=== PATIENT | female | born 1970 | race Caucasian/White ===

== ENCOUNTER 2023-03-22 17:28 | Emergency (ER) | payer OTHER ==
--- OUTSIDE RECORDS SUMMARY | 2023-03-22 17:31 | XMS REPORT | Clinical Summary ---
:1970 Author Organization [facility] Address [address] [place] [address] Care Team Providers Name Role Phone Kev Whitt MD Unavailable Phyllis Modi RD Unavailable Unavailable Yimi Matos MD Unavailable Yimi Matos MD Primary Care Provider Darby Barrera CCC-PLATFORM POWER TECHNICIAN Unavailable Toby العراقي CCC-PLATFORM POWER TECHNICIAN Unavailable Unavailable Maryam Lucio MD Unavailable Elpidio Regalado DO Unavailable Allergies Active Allergy Reactions Criticality Noted Date Comments Adhesive Rash Low 09/10/2016 Amoxicillin Rash High 02/24/2019 Other reaction( s): GI Intolerance Amoxicillin-Pot Other (See High 09/04/2012 Other reacti on(s): Clavulanate Comments) Unknown - See comments Coughing up blo od Coughing up blo od Banana Other (See 09/10/2016 Other reaction( s): Comments) GI Intolerance Abdominal pain Abdominal pain Abdominal pain Budesonide-Formoterol Shortness Of Breath High 09/10/2016 Cephalexin Swelling 12/08/2021 Cetirizine Other (See 09/10/2016 Other reaction( s): Comments) GI Intolerance Metallic taste Metallic taste Metallic taste Dexamethasone Swelling 01/13/2022 Throat swellin g Dexlansoprazole Diarrhea 09/10/2016 Egg Swelling 10/31/2020 Ethanol (Ethyl Alcohol) 01/26/2022 Fluticasone Shortness Of Breath High 09/10/2016 Fluticasone Anxiety Low 09/10/2016 Furoate-Vilanterol Iodinated Contrast Media Anaphylaxis High 01/24/2022 Latex Rash High 09/10/2016 Levofloxacin 09/04/2012 Other reaction( s): Altered Mental Status, Unknown - See comments psychosis psychosis psychosis Lidocaine Other (See High 04/04/2017 Burning, irrita tion Comments), Burning, irrita tion Shortness Of Burning, irrita tion Breath, Swelling Macrolide Antibiotics GI Intolerance, 09/10/2016 Nausea And Vomiting Meropenem High 01/20/2022 Unable to move out of bed Metformin (Bulk) Other (See High 09/10/2018 Other react ion(s): Comments) Altered Mental Status Severe aggressi on, delusions. See nurse note from 09/10/18 urgent care visit. Severe aggressi on, delusions. See nurse note from 09/10/18 urgent care visit. Severe aggressi on, delusions. See nurse note from 09/10/18 urgent care visit. Midazolam Anxiety, Other (See Low 04/11/2017 Other re action(s): Comments) Altered Mental Status Depression Depression Depression Acetylcysteine Other (See 07/14/2022 Aggravated; t hroat Comments) feels swollen Rosuvastatin Other (See 10/13/2016 Vague intoleran ce Comments) Shellfish Containing Anaphylaxis, High 10/30/2021 Products Swelling Silicone Itching, Other (See 10/30/2021 Comments), Swelling Sodium Lauryl Sulfate Shortness Of Breath High 10/30/2021 Other reaction(s): shortness of br eath Sulfa (Sulfonamide High 09/04/2012 Other aroldo ction(s): Antibiotics) GI Intolerance, Unknown - See comments psychosis Thimerosal Other (See 04/11/2017 Other reaction( s): Comments) Unknown - See comments Tiotropium Whitwell Shortness Of Breath High 09/10/2016 Triamterene-Hydrochlorot Swelling 09/10/2016 hiazid Zileuton Anxiety Low 09/10/2016 Medications Medication Sig Dispensed Refills Start End Status Date Date ProAir HFA 90 INHALE 2 PUFFS 0 A ctive mcg/actuation BY MOUTH EVERY 4 2 inhaler HOURS NEEDED FOR SHORTNESS OF BREATH albuterol Inhale 3 mL (2.5 0 Act alice (PROVENTIL,VENTOLIN mg) by ) 2.5 mg/3 mL nebulization (0.083%) nebulizer every 6 (six) solution hours. doxycycline Take 1 capsule 28 capsule 0 Ac tive (Vibramycin) 100 MG (100 mg) by 3 capsuleIndications: mouth twice Squamous cell daily. carcinoma of esophagus acetylcysteine Take 200 mg by 0 Discontinued (MUCOMYST) 200 mouth twice 2 022 (Re order) mg/mL (20%) daily. nebulizer solution diphenhydrAMINE Take 25 mg by 0 Discontinued (BENADRYL) 25 mg mouth every 8 023 capsule (eight) hours as needed for allergies. predniSONE Please take 20 12 tablet 0 Disc ontinued (DELTASONE) 10 mg mg daily x 3 2 023 tabletIndications: days, then 10 mg Obstruction of daily for 3 trachea days, then 10 mg every other day for 3 doses acetylcysteine Take 1 mL (200 30 mL 0 Discontinued (MUCOMYST) 200 mg) by mouth 2 022 (R eorder) mg/mL (20%) twice daily. nebulizer solutionIndications : Carcinoma of esophagus acetylcysteine Take 3 mL (600 180 mL 11 Discontinued (MUCOMYST) 200 mg) by mouth 2 022 mg/mL (20%) twice daily. nebulizer solutionIndications : Obstruction of trachea acetylcysteine Take 1 mL (200 60 mL Discontinued (MUCOMYST) 200 mg) by mouth 2 023 mg/mL (20%) twice daily. nebulizer solutionIndications : Carcinoma of esophagus predniSONE Take 1 tablet 3 tablet 0 Disco ntinued (DELTASONE) 50 mg (50 mg) by mouth 2 023 tabletIndications: 3 (three) times Squamous cell a day. Take 1 carcinoma of tab 13, 7, and 1 esophagus hour prior to receiving iodine contrast. Take 50 mg Benadryl within one hour of scan. diazePAM (VALIUM) 2 Take 1 tablet (2 0 14/07 Discontinued mg tablet mg) by mouth as 023 needed. doxycycline Take 1 capsule 28 capsule 0 Ex pired (Vibramycin) 100 MG (100 mg) by 3 023 capsuleIndications: mouth twice Squamous cell daily for 14 carcinoma of days. esophagus Active Problems Patient Care Coordination Note Formatting of this note might be differe nt from the original. 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 Overview: Added automatically from request for tereso tolbert [id number] Squamous cell carcinoma of esophagus 01/13/2022 Cancer Staging: Clinical stage from 01/25: Stage CYNTHIA (cT4b, cN3, cM0, GX, L: Upper) - Signed by Horace Day MD PhD on 01/29/2022 Acute on chronic hypoxemic respiratory failure Stridor Agitation Electrolyte and fluid disorders not elsewhere classified Encounters Date Type Department Care Team Description 03/11/2023 Telephone MD [facility] [place] voice m [facility] - Surgical Yamilet, zig zag stitcher [address] [place] [address] 01/07/2023 Follow-Up MD [facility] Yimi Matos Squa mous cell 11:30 AM [facility] Head & Neck carcinoma of T Surgery esophagus [address] [place] [address] 01/07/2023 Travel 12/28/2022 Orders Only MD [facility] Lexi Hughes Squa mous cell [facility] Head & Neck [place] carcinoma of Surgery esophagus (Primary [address] [facility] [place]x) [place] [address] 10/05/2022 Follow-Up MD [facility] Yimi Matos Squa mous cell 9:30 AM [facility] - Head & Neck carcinoma of Surgery esophagus [address] [place] [address] 10/05/2022 Travel 09/06/2022 Orders Only Head and Neck Center Lexi Hughes Squa mous cell - Surgical Oncology PA carcinoma of [address] esophagus (Primary Main Bldg, 10th Dx) Floor, [place] [address] 08/13/2022 Orders Only Cardiopulmonary Mackenney, Tracheostomy care [facility] - Pulmonology MICHAEL Dukes (Primar y Dx) Medicine [address] Main Bldg, 6th [place] [address] 08/13/2022 Orders Only Cardiopulmonary Cuauhtemoc, Ngoc, [facility] - Pulmonology SENIOR UNDERWRITING ASSISTANT Medicine [address] Main Bldg, 6th [place] [address] 07/14/2022 Hospital Encounter Head and Neck Center Yimi Matos Squamous cell carcinoma of esophagus 7:43 AM [address] - Surgical Oncology MD Discharge Disposition: Home - [address] 07/14/2022 Main Bldg, 10th 11:59 PM Floor, [place] [address] 07/14/2022 Travel 07/12/2022 Ancillary Procedure PET Imaging Yimi Matos Squamous cell 4:30 PM [address] Paul MD carcinoma of [facility], 6th esophagus [place] [address] 07/12/2022 Travel 07/09/2022 Telephone PET Imaging Sarah Hughes RN [address] [facility], 6th [place] [address] 06/22/2022 Orders Only Head and Neck [facility] Yimi Matos Squa mous cell - Surgical Oncology carcinoma of [address] esophagus (Primary Main Bldg, 10th Dx) Floor, [place] [address] 05/03/2022 Documentation Case Management Catalina Ritter [address] [place] [address] 04/21/2022 Documentation Case Management Kiran [address] [place] [address] 04/16/2022 Documentation Case Management Jany [address] [address] 04/16/2022 Orders Only Head and Neck Center Lexi Hughes Squa mous cell - Surgical Oncology PA carcinoma of [address] esophagus (Primary Main Bldg, 10th Dx) Floor, [place] [address] 04/14/2022 Hospital Encounter Head and Neck Center Anuradha S quamous cell carcinoma of esophagus 11:00 AM - Speech Pathology Nelson Jeff, Discharge Disposition: Home FRIEND OF THE COURT - [address] MD 04/14/2022 Main Bldg, 10th Floo r Dulce Maria, 11:59 PM Elevator A Toby Woodall, [place] [address] [facility]-PLATFORM POWER TECHNICIAN [phone] 04/14/2022 Hospital Encounter Head and Neck Center Yimi Matos , Squamous cell carcinoma of esophagus; 10:04 AM - Surgical Oncology Tracheostomy present FRIEND OF THE COURT - [address] Lofton, Discharge Disposition: Home 04/14/2022 Main Kristina, 10th 10:59 AM Floor, [place] [address] 04/14/2022 Telephone Head and Neck Center Milena, - Speech Pathology Yamilet Mendoza, [address] [facility]-PLATFORM POWER TECHNICIAN Main Bldg, 10th [place] [address] 04/14/2022 Orders Only Head and Neck Center Lexi Hughes, - Surgical Oncology PA [address] Main Bldg, 10th Floor, [place] [address] 04/14/2022 Travel 04/13/2022 Orders Only MD [facility] Lexi Hughes Squa mous [facility] - Head & Neck PA carcinoma of Surgery esophagus (Primary [address] [place]x) [place] [address] 04/13/2022 Orders Only Head and Neck Center Lexi Hughes, - Surgical Oncology PA [address] Main Bldg, 10th Floor, [place] [address] 04/13/2022 Orders Only Head and Neck Center Lexi Hughes Squa mous cell - Surgical Oncology PA carcinoma of [address] esophagus (Primary Main Bldg, 10th Dx) Floor, [place] [address] 04/12/2022 Telephone Cardiopulmonary AlexandraRubinci N, [facility] Pulmonology SENIOR UNDERWRITING ASSISTANT Medicine [address] Main Bldg, 6th [place] [address] 04/12/2022 Orders Only Cardiopulmonary Alexandra, Lashawn N, Carcinom a of [facility] Pulmonology SENIOR UNDERWRITING ASSISTANT esophag Medicine [address] Main Bldg, 6th [place] [address] 04/08/2022 Orders Only Cardiopulmonary Alexandra, Lashawn N, Carcinom a of [facility] Pulmonology SENIOR UNDERWRITING ASSISTANT esophag Medicine [address] Bldg, 6th [place] [address] 04/07/2022 Orders Only Cardiopulmonary Alexandra, Lashawn N, Obstruct ion of [facility] Pulmonology SENIOR UNDERWRITING ASSISTANT trachea (Primary Medicine Dx) [address] [facility] Main Bldg, 6th [place] [address] 04/06/2022 Refill Cardiopulmonary MirelesArely Carcinom a of [facility] Pulmonology C, RN esophag Medicine [address] [facility] Main Bldg, 6th [place] [address] 04/06/2022 Orders Only Neuroradiology Dwight Chávez, [facility]5 [facility] [place] [address] 04/06/2022 Orders Only Head and Neck [facility] Yimi Matos Carc inoma of esophagus (Primary Dx); - Surgical Oncology Unspecified complication fol lowing infusion and therapeutic injection, initial encounter [address] [facility] Main Bldg, 10th Floor, [place] [address] after 03/22/2022 Surgical History Surgery Date Site/Laterality Comments HERNIA REPAIR 2017 HYSTERECTOMY 2017 BRONCHOSCOPY 2021 [place] TRACHEOSTOMY PLANNED 01/20/2022 Neck/N/A Procedur e: TRACHEOSTOMY - SEPARATE PROCEDURE PLANNED; Surg jo-ann: Yimi Matos MD; Lo cation: MAIN OR; Service: [facility] - HEAD & NECK SURGERY [place] BRNCC W/DSTRJ SYDNI RELIEF 01/20/2022 Bronchus/N/A Pr ocedure: FLEXIBLE OR RIGID STENOSIS OTH/THN EXC BRONCHOSCOP Y WITH DESTRUCTION OF TUMOR OR STEN OSIS RELIEF (LASER, CRYOTHER APY); Surgeon: Maryam Lucio MD; Location: [facility]IN [facility]; Service: PULMONA RY Medical History Medical History Date Comments Neuropathy 2020 Allergic rhinitis Lifelong Swallowing problem 2016 Asthma Lifelong Gastric reflux 2009 No longer Uterine leiomyoma 2009 Removed Arthritis 2014 Gout 2011 Anxiety Alcohol abuse Suicide attempt 1997 Cancer of pharynx 2021 Family History Medical History Relation Name Comments Head and neck cancer Father Rohan Lymphoma Father Rohan Skin cancer Maternal Grandmother Aicha Relation Name Status Comments Father Rohan Maternal Grandmother Aicha Social History Tobacco Use Types Packs/Day Years Used Date Smoking Tobacco: Former Cigarettes 1 30 Quit : 11/2021 Smokeless Tobacco: Never Alcohol Use Standard Drinks/Week Comments Yes 0 (1 standard drink = 0.6 oz pure alcoho l) Sex and Gender Information Value Date Recorded Sex Assigned at Not on file Gender Identity Not on file Sexual Orientation Not on file Job Start Date Occupation Industry Not on file Not on file Not on file Obstetrics History Last Filed Vital Signs Vital Sign Reading Time Taken Comments Blood Pressure 123/74 01/07/2023 11:39 AM CDT Pulse 88 01/07/2023 11:39 AM CDT Temperature 36.7 C (98 F) 01/07/2023 11:39 AM CDT Respiratory Rate 20 01/07/2023 11:39 AM CDT Oxygen Saturation 97% 07/14/2022 8:29 [address] Inhaled Oxygen Concentration - - Weight 58.7 kg (129 lb 6.6 oz) 01/07/2023 11:39 AM CDT Height 160 cm (5' 2.99") 07/12/2022 4:[address] Body Mass Index 22.93 07/12/2022 4:[address] Plan of Treatment Health Maintenance Due Date Last Done Comments COVID-19 Vaccination (#1) 03/21/1971 Procedures Procedure Name Priority Date/Time Associated Comments Diagnosis PETCT SUBSEQUENT Routine 07/12/2022 5:57 PM Squamous cell Resu lts for this TREATMENT STRATEGY FRIEND OF THE COURT carcinoma of procedure are in esophagus the results section. after 03/22/2022 Results PETCT Subsequent Treatment Strategy (07/12/2022 5:57 PM [address] THE [address]) Anatomical Region Laterality Modality Whole Body Positron Emission To mography (PET) Specimen (Source) Anatomical Collection Method Collection Time Re ceived Time Location / / Volume Laterality 07/13/2022 8:33 AM [address] Impressions 07/13/2022 11:[address] 1. IMPRESSION: Progression of disease as evidenced by the increased in size esophageal mass with new and enlarged bilateral cervical lymphadenopathy. 2. Additional new mediastinal lymphade nopathy and a new hepatic lesion consistent with metastases. I personally reviewed these image(s) cristobal ng with the resident's/fellow's interpretations, certify that if a procedure was performed I was physically present, and agree with the final report. Narrative 07/13/2022 11:[address] FULL RESULT: Examination: FDG PET/CT, 07/12/2022 5:57 PM Clinical History: 51-year-old female who presents with locally and regionally advanced esophageal squamous cell carcinoma with significant disease eroding from the esophagus into the airway, now tracheostomy dependent. Indication: Restaging for subsequent starr atment strategy. Comparison: FDG PET/CT on 01/25/2022 Technique: F-18 fluorodeoxyglucose (FDG) 6.4 mCi was administered intravenously via a left antecubital fossa vein. To allow for distribution and uptake of radiotracer, the patient was asked to rest qu ietly for approximately 60-90 minutes. PET/CT imaging was performed from the skull vertex to the midthighs. CT scanning was done for attenuation correction, image registration, and diagnosis with scan parameters optimized to minimize radiat ion exposure to the patient. SUV measurements are reported as maximum SUV based on body weight unless otherwise specified. FINDINGS: Head and Neck: No focal activity within the brain. Paranasal sinuses are unremarkable. Increased in size 10.0 x 9.8 x 6.9 cm (S I x AP x trans) soft tissue esophageal mass (series 3, image 139) at the level of the first rib with Max SUV of 18.5 (image 136), previously 5.1 x 7.1 x 5.2 cm (SI x AP x trans) with max SUV of 8.8. The thyroid gland is inseparable from th e mass. Unchanged tracheostomy tube which appear s patent with tip in the midthoracic trachea. New 0.7 x 1.0 cm and 1.1 x 1.2 cm left c ervical level 2 lymph nodes (series 3, images 106 and 119) with SUV max of 9.9 and 11.0 respectively (images 106 and 119). A new 0.7 x 0.7 cm left cervical level 1 B/3 lymph node (series 3, image 129) with SUV max of 4.7 (image 129). Increased in size 1.4 x 1.6 cm right cer vical level 3 lymph node (series 3, image 126) with SUV max of 12.0 (image 126), previously 1.4 x 1.0 cm with SUV of 5.5. Chest: No suspicious pulmonary nodule or mass. A new 1.6 x 1.3 cm prevascular lymph nod e (series 3, image 180) with SUV max of 11.4 (image 180). No hypermetabolic or enlarged hilar or a xillary lymph nodes. No pleural or pericardial effusion. Abdomen and Pelvis: A new ill-defined 1. 6 x 1.6 cm hepatic segment 5 hypodensity (series 3, image 316) with SUV max of 6.8 (image 311). Unremarkable gallbladder, spleen, pancreas, and adrenals. Unremark able kidneys with physiologic uptake in the genitourinary tract. Physiologic uptake throughout the otherwise unremarkable bowel. Unchanged small fat-containing umbilical hernia. No hypermetabolic or enlarged abdominope lvic lymph nodes. Musculoskeletal: No hypermetabolic or calderon spicious lytic or blastic osseous lesions. Procedure Note Rambo Justice MD - 07/13/2022Format ting of this note might be different from the original. FULL RESULT: Examination: FDG PET/CT, 07/12/2022 5:57 PM Clinical History: 51-year-old female who presents with locally and regionally advanced esophageal squamous cell carcinoma with significant disease eroding from the esophagus into the airway, now tracheostomy dependent. Indication: Restaging for subsequent starr atment strategy. Comparison: FDG PET/CT on 01/25/2022 Technique: F-18 fluorodeoxyglucose (FDG) 6.4 mCi was administered intravenously via a left antecubital fossa vein. To allow for distribution and uptake of radiotracer, the patient was asked to rest quietly for approximately 60-90 minutes. PET/CT imaging was performed from the skull vertex to the midthighs. CT scanning was done for attenuation correction, image registration, and diagnosis with scan parameters optimized to minimize radiati on exposure to the patient. SUV measurements are reported as maximum SUV based on body weight unless otherwise specified. FINDINGS: Head and Neck: No focal activity within the brain. Paranasal sinuses are unremarkable. Increased in size 10.0 x 9.8 x 6.9 cm (S I x AP x trans) soft tissue esophageal mass (series 3, image 139) at the level of the first rib with Max SUV of 18.5 (image 136), previously 5.1 x 7.1 x 5.2 cm (SI x AP x trans) with max SUV of 8.8. The thyroid gland is inseparable from th e mass. Unchanged tracheostomy tube which appear s patent with tip in the midthoracic trachea. New 0.7 x 1.0 cm and 1.1 x 1.2 cm left c ervical level 2 lymph nodes (series 3, images 106 and 119) with SUV max of 9.9 and 11.0 respectively (images 106 and 119). A new 0.7 x 0.7 cm left cervical level 1 B/3 lymph node (series 3, image 129) with SUV max of 4.7 (image 129). Increased in size 1.4 x 1.6 cm right cer vical level 3 lymph node (series 3, image 126) with SUV max of 12.0 (image 126), previously 1.4 x 1.0 cm with SUV of 5.5. Chest: No suspicious pulmonary nodule or mass. A new 1.6 x 1.3 cm prevascular lymph nod e (series 3, image 180) with SUV max of 11.4 (image 180). No hypermetabolic or enlarged hilar or a xillary lymph nodes. No pleural or pericardial effusion. Abdomen and Pelvis: A new ill-defined 1. 6 x 1.6 cm hepatic segment 5 hypodensity (series 3, image 316) with SUV max of 6.8 (image 311). Unremarkable gallbladder, spleen, pancreas, and adrenals. Unremarkable kidneys with physiologic uptake in the g enitourinary tract. Physiologic uptake throughout the otherwise unremarkable bowel. Unchanged small fat-containing umbilical hernia. No hypermetabolic or enlarged abdominope lvic lymph nodes. Musculoskeletal: No hypermetabolic or calderon spicious lytic or blastic osseous lesions. IMPRESSION: 1. IMPRESSION: Progression of disease as evidenced by the increased in size esophageal mass with new and enlarged bilateral cervical lymphadenopathy. 2. Additional new mediastinal lymphadeno jaison and a new hepatic lesion consistent with metastases. I personally reviewed these image(s) cristobal ng with the resident's/fellow's interpretations, certify that if a procedure was performed I was physically present, and agree with the final report. Yimi Matos MD IMG PETCT ORDERABLES after 03/22/2022 Insurance Payer Benefit Plan / Subscriber ID Effective Dates Phone Addre ss Type Group [employer] MANAGED CIGNA HMO POS [id number] 2021-Present [address] [place] [address] ([place]) [place] [address] Advance Directives Code Status Date Activated Date Inactivated Comments Full Code 01/20/2022 4:24 PM 01/26/2022 6:38 PM Care Teams Film Processor Relationship Specialty Start Date End Date Kev Whitt, PCP - External Follow Up Radiation Oncology MD Gaytan [address] [place] [address] Yimi Matos MD PCP - General Head and Neck Surgery 03/02/[address] [place] [phone] Phyllis Modi, Clinical Dietitian Nutrition 02/16/[address] [address] Yimi Matos MD Physician Head and Neck Surgery 02/24/[address] [place] [phone] Darby Barrera, Speech Language Speech Pathology 03/30/22 [facility]-PLATFORM POWER TECHNICIAN Pathologist [address] [place] [phone] Toby العراقي Speech Language Speech Pathology 04/14/22 Jose C, [facility]-PLATFORM POWER TECHNICIAN Pathologist [address] [place] [phone] Maryam Lucio MD Consulting Physician Pulmonary Medicine 01/19/[address] [place] [id number] [facility] DO Mathew [address] [place] [id number]
--- OUTSIDE RECORDS SUMMARY | 2023-03-22 17:56 | XMS REPORT | Continuity of Care Document ---
:1970 Author Organization [facility] t Address [address] [place] [address] Care Team Providers Name Role Phone MARS HOLLAND M Primary Care Physician Unavailable Holland Regalado Attending Clinician Unavailable SYSTEM, PROVIDER NOT IN Attending Clinician Unavailable ATIF ROSEN Attending Clinician Unavailable Yamilet Lugo RN Attending Clinician RADAMES HARMAN Attending Clinician Unavailable Will Stratton MD Attending Clinician Radames Harman MD Attending Clinician FELICITAS MATOS Attending Clinician Unavailable Felicitas Matos MD Attending Clinician Lexi Granger Attending Clinician Ngoc Posadas APRN Attending Clinician Kinjal RODRIGUEZ, Roseline Attending Clinician Doctor Unassigned, [place] Attending Clinician Unavailable Saul GIBSON, Sarah Attending Clinician Unavailable Elzbieta Gaona DO Attending Clinician Herbert Larson Attending Clinician Stone GIBSON, Catalina Fitzgerald Attending Clinician Kiran GIBSON, Sheree Ng Attending Clinician BETHANY COBOS Attending Clinician Unavailable Dayne Bentley MD, Bethany Attending Clinician [phone] Dulce Maria CCC-BOTTOM BLEACHER, Toby Leggett Attending Clinician Unavailable Josef Conti MD Attending Clinician Milena CCC-BOTTOM BLEACHER, Yamilet Mendoza Attending Clinician [phone] Nasrin CHAR FILTER TANK TENDER, Lashawn Card Attending Clinician Chi GIBSON, Arely Ng Attending Clinician Unavailable Dwight Chávez MD Attending Clinician ELISE GARCIA Attending Clinician Unavailable CATALINA ROSALES Attending Clinician Unavailable Catalina Rosales DO Attending Clinician JASMYNE CHRIS Attending Clinician Unavailable PATRICIO JAMISON Attending Clinician Unavailable MARLON ROWE Attending Clinician Unavailable Enio Cevallos Attending Clinician Marlon Rowe MD Attending Clinician Nicole HANLEY Attending Clinician Unavailable Nicole Mcfarlane Attending Clinician Bety Ceja MD Attending Clinician GWENDOLYN CUMMINGS Attending Clinician Unavailable STEPHANIE HENRY Attending Clinician Unavailable Gage RON, Nell Ashford Attending Clinician [phone] Sariah Campa LVN Attending Clinician Estevan Patel MD Attending Clinician BETY CEJA Attending Clinician Unavailable Movva MD, Michael Attending Clinician ELZBIETA GAONA Attending Clinician Unavailable ELZBIETA GAONA Attending Clinician Unavailable Vanessa Regalado DO Attending Clinician Lisa RON, Suly Attending Clinician TONY LAZCANO Attending Clinician Unavailable Liam BRAY, Lauren S Attending Clinician Lan Maza MD, Fox Myers Attending Clinician [phone] Tony Lazcano MD Attending Clinician Madyson Henson MD Attending Clinician EULOGIO LEMON Attending Clinician Unavailable Kvng ACNEulogio Pinzon Attending Clinician Britton King Attending Clinician Nurse, [facility] Attending Clinician Unavailable BRITTON HANCOCK Attending Clinician Unavailable ALCIDES SCHULZ Attending Clinician Unavailable Alcides Schulz MD Attending Clinician EDUARD BOONE Attending Clinician Unavailable KEVIN STEARNS Attending Clinician Unavailable RACHELL LOPEZ Attending Clinician Unavailable GERMAN KHALIL Attending Clinician Unavailable EbraGerman Velasquez Attending Clinician Unknown, Attending Attending Clinician Unavailable DIONICIONASBRENNEN MARIA T Attending Clinician Unavailable IVÁN MADERAL T Attending Clinician Unavailable AMY ALCALA Attending Clinician Unavailable Amy Alcala MD Attending Clinician 2, Adc Lab Attending Clinician Unavailable BENSON ARAGON Attending Clinician Unavailable Alysia Perales MD Attending Clinician ALYSIA PERALES Attending Clinician Unavailable Ralph RON, Erik Ratliff Attending Clinician [phone] LUIS ALBERTO ESTRADA Attending Clinician Unavailable Luis Alberto Estrada MD Attending Clinician Kelsey Hewitt PA-C Attending Clinician Maury Patrick II Attending Clinician ATIF ROSEN Admitting Clinician Unavailable RADAMES HARMAN Admitting Clinician Unavailable Radames Harman MD Admitting Clinician DONNIE YUAN Admitting Clinician Unavailable ENIO PATEL Admitting Clinician Unavailable Nicole HANLEY Admitting Clinician Unavailable Nell Almonte MD Admitting Clinician [phone] NELL ALMONTE Admitting Clinician Unavailable FOX BREEN JR Admitting Clinician Unavailable Lan Maza MD, Victor J Admitting Clinician [phone] CATALINA ROSALES Admitting Clinician Unavailable LARRY SNOW Admitting Clinician Unavailable LUIS ALBERTO ESTRADA Admitting Clinician Unavailable Payers Payer Name Policy Type Policy Number Effective Date Expiration Date Antonio moore CIGNA HMO POS [id number] 2021 OPEN ACCESS 00:00:00 CIGNA II [id number] 2020 00:00:00 CIGNA 53 [id number] 2020 [facility] 00:00:00 - [facility] [id number] 2018 - OUT OF STATE 00:00:00 Problems Condition Condition Condition Status Onset Resolution Last Treating Co mments Source Name Details Category Date Date Treatment Clinician Date Hypotensio Hypotensio Disease Active 2022-05 U nivers n, n, 0-10 ity of unspecifie unspecifie 00:00: [place] 00 Medical hypotensio hypotensio Br anch n type n type Obstructio Obstructio Disease Recurre Inesvie w: Univers n of n of nce 824 Formattin ity of trachea trachea 00:00: g of this [place] 00 note might be Anderso different n from the Cancer original. 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 11-02 00:00: Hospita 00 l Hyperglyce Hyperglyce Disease Active M ethodi vero due to vero due to 11-02 type 2 type 2 00:00: Hospita diabetes diabetes 00 l mellitus mellitus Mental Mental Disease Active Methodi disorder disorder 11-02 00:00: Hospita 00 l Osteoarthr Osteoarthr Disease Active M ethodi itis of itis of 11-02 multiple multiple 00:00: Hospit a joints joints 00 l Secondary Secondary Disease Active Met hodi endocrine endocrine 11-02 diabetes diabetes 00:00: Hospit a mellitus mellitus 00 l Acute left Acute left Disease Active M ethodi ankle pain ankle pain 10-30 00:00: Hospita 00 l Ulcerative Ulcerative Disease Active M ethodi colitis colitis 10-30 with with 00:00: Hospita complicati complicati 00 l on on Diarrhea Diarrhea Disease Active Metho di 10-30 00:00: Hospita 00 l Diverticul Diverticul Disease Active M ethodi ar disease ar disease 10-30 00:00: Hospita 00 l Type 2 Type 2 Disease Active Methodi diabetes diabetes 10-30 mellitus mellitus 00:00: Hospit a with with 00 l hyperglyce hyperglyce vero, vero, without without long-term long-term current current use of use of insulin insulin Gluten Gluten Disease Active Methodi intoleranc intoleranc 10-30 e e 00:00: Hospita 00 l Acute gout Acute gout Disease Active M ethodi of left of left 10-30 ankle ankle 00:00: Hospita 00 l Monoclonal Monoclonal Disease Active M ethodi gammopathy gammopathy 10-30 00:00: Hospita 00 l Tendinitis Tendinitis Disease Active M ethodi of elbow of elbow 10-30 or forearm or forearm 00:00: Ho spita 00 l Steroid-in Steroid-in Disease Active M ethodi duced duced 7-18 st diabetes diabetes 00:00: Hospit a mellitus mellitus 00 l Fibroids Fibroids Disease Active 2016-05 Unive rs 06-19 ity of 00:00: [place] [facility] Post-opera Post-opera Disease Active 2016-05 U nivers tive state tive state 06-18 it y of 00:00: [place] [facility] Abnormal Abnormal Disease Active 2016-05 Overview: Me thodi uterine uterine 06-[address] bleeding bleeding 00:00: g of this [facility] 00 note l might be different from the original. Formattin g of this note might be different from the original. Added automatic ally from request for surgery [id number] ed automatic ally from request for surgery [id number] matting of this note might be different from the original. Added automatic ally from request for surgery [id number] Uterine Uterine Disease Active Methodi leiomyoma leiomyoma 02-02 00:00: Hospita 00 l Obstructiv Obstructiv Disease Active M ethodi e sleep e sleep 10-13 apnea apnea 00:00: Hospita 00 l Prediabete Prediabete Disease Active M ethodi s s 10-13 00:00: Hospita 00 l Erythrocyt Erythrocyt Disease Active U nivers osis osis 09-28 ity of 00:00: [place] [facility] Vitamin D Vitamin D Disease Active Met hodi deficiency deficiency 09-28 00:00: Hospita 00 l Multiple Multiple Disease Active Unive rs drug drug 09-01 ity of allergies allergies [place] [facility] [place] Idiopathic Idiopathic Disease Active U nivers gout, gout, 09-01 ity of unspecifie unspecifie 00:[place] 00 Medical chronicity chronicity Br anch , , unspecifie unspecifie d site d site Hematuria Hematuria Disease Active Met hodi 09-01 st 00:00: Hospita 00 l Polyarthra Polyarthra Disease Active M ethodi lgia lgia 09-01 00:00: Hospita 00 l Smoker Smoker Disease Active Methodi 09-01 st 00:00: Hospita 00 l Enlarged Enlarged Disease Active Overview: Un dequan uterus uterus 10-12 Formattin ity of 00:00: g of this [place] [address] note Medical might be Branch different from the original. US report received. DOS- 3. Impressio n- Large 28cm x14cmx 16cm pelvic mass believed to be very enlarged multi fibroid uterus. Endometri al strip was not identifia ble. Neither ovary was identifia ble. Hyperlipid Hyperlipid Disease Active M ethodi emia emia 09-08 st 00:00: Hospita 00 l Immune to Immune to Disease Active Uni vers rubella rubella 09-07 ity of 00:00: [place] [address] Medical Branch Encounter Encounter Disease Active Overview: Univers for for 09-04 Formattin ity of routine routine 00:00: g of this [place] gynecologi gynecologi 00 note Me dical abdirizak abdirizak might be Branch examinatio examinatio different n n from the original. ICD10 Diagnosis Term Director Of Acquisition Marketing Utility Need for Need for Disease Active Unive rs prophylact prophylact 09-04 it y of ic ic 00:00: [place] vaccinatio vaccinatio 00 Me dical n with n with Branch combined combined diphtheria diphtheria -tetanus-p -tetanus-p ertussis ertussis (DTP) (DTP) vaccine vaccine Irregular Irregular Disease Active Uni vers menstrual menstrual 09-04 ity of cycle cycle 00:00: [address] Branch Depression Depression Disease Active M ethodi 09-04 st 00:00: Hospita 00 l Dermatophy Dermatophy Disease Active Overview : Methodi tosis tosis 09-[address] 00:00: g of this [facility] 00 note l might be different from the original. Formattin g of this note might be different from the original. ICD10 Diagnosis Term Director Of Acquisition Marketing UtilityIC D10 Diagnosis Term Director Of Acquisition Marketing UtilityFo rmatting of this note might be different from the original. ICD10 Diagnosis Term Director Of Acquisition Marketing Utility Asthma Asthma Disease Active Methodi 09-04 st 00:00: Hospita 00 l Generalize Generalize Disease Active M ethodi d anxiety d anxiety 09-04 st disorder disorder 00:00: Hospit a 00 l [id number] Adult BMI Problem Com mon 37.0-37.9 Spirit kg/sq m - [facility] [id number] MGUS Problem Common (monoclona Spirit l - [facility] gammopathy St of unknown kes significan Medica l ce) Center [id number] Morbid Problem Commo n 9104 (severe) Spirit obesity - [facility] due to [facility] [id number] Body mass Problem Com mon index Spirit (BMI) - CHI 40.0-44.9, [facility] [id number] Mixed Problem Common hyperlipid Spirit emia - [facility] [id number] Tobacco Problem Commo n use Spirit disorder - [facility] [id number] Extrinsic Problem Com mon asthma, Spirit unspecifie - [facility] d asthma [facility] severity[facility] whether Center complicate d, unspecifie d whether persistent [id number] Anxiety Problem Common disorder Spirit due to - [facility] multiple [facility] [id number] Gout Problem Common involving Spirit toe, - [facility] un[facility]ie [facility] d cause, [facility] Center chronicity , unspecifie d laterality [id number] Gluten Problem Common intoleranc Spirit e - [facility] Malignant Malignant Problem Active 2022-05-21 Memoria tumor of tumor of 13:10:19 l esophagus esophagus Herm sujatha (disorder) (disorder) Active Problem 05/21/2022 [facility] [place] Backache Backache Problem Active 2022-05-21 Memoria (finding) (finding) 13:10:19 l Active Carlos [facility] Cramp in Cramp in Problem Active 2022-05-21 Memoria lower limb lower limb 13:10:19 l (finding) (finding) Herm sujatha Active Problem 05/21/2022 Aiden [facility] Dyslipidem Dyslipide Problem Active 2022-05-21 Memoria ia vero 13:10:19 l associated associated He rmann with type with type II II diabetes diabetes mellitus mellitus (disorder) (disorder) Active Problem 05/21/2022 [facility] Finding of Finding Problem Active 2022-05-21 Memoria body mass of body 13:10:19 l index mass index Rodolfo n (finding) (finding) Active Problem 05/21/2022 Medical [facility] her Neuro, KADEN Newton,[facility] Morbid Morbid Problem Active 2022-05-21 Keanu tony obesity obesity 13:10:19 l (disorder) (disorder) He rmann Active Problem 05/21/2022 [facility] Leonel [facility] Pain in Pain in Problem Active 2022-05-21 Me moria spine spine 13:10:19 l (finding) (finding) Herm sujatha Active Problem 05/21/2022 [facility] Leonel [facility] Paresthesi Problem Active 2022-05-21 M emoria a Paresthesi 13:10:19 l (finding) a Carlos (finding) Active Problem 05/21/2022 [facility] Leonel, KADEN Newton,[facility] Peripheral Periphera Problem Active 2022-05-21 Memoria nerve l nerve 13:10:19 l disease disease Carlos (disorder) (disorder) Active Problem 05/21/2022 [facility] Leonel KADEN Newton,[facility] Spinal Spinal Problem Active 2022-05-21 Mem oria stenosis stenosis 13:10:19 l in in [place] cervical cervical region region (disorder) (disorder) Active Problem 05/21/2022 [facility], [facility] [place] Thyroid Thyroid Problem Active 2022-05-21 M emoria lump lump 13:10:19 l (disorder) (disorder) He rmann Active Problem 05/21/2022 [facility] [place] R20.2 - R20.2 - Diagnosis Active 2021-11-21 Memoria PARESTHESI PARESTHESI 10:40:00 l A OF SKIN A OF SKIN Herm sujatha G62.9 - G62.9 - POLY POLY Active KADEN Newton Acute on Acute on Disease Active Unive rs chronic chronic ity of [place] respirator respirator y failure y failure [facility] Stridor Stridor Disease Active Univers ity [facility] MD [facility] Agitation Agitation Disease Active Uni vers ity [facility] MD [facility] [place] [facility] Electrolyt Electrolyt Disease Active U nivers e and e and ity of fluid fluid [place] disorders disorders MD not not Anderso elsewhere elsewhere n classified classified [facility] Allergies, Adverse Reactions, Alerts Allergy Allergy Status Severity Reaction(s) Onset Inactive Treating Comm ents Source Name Type Date Date Clinician ACETYLCY DRUG Active Other MD POWERS INGREDI 2-15 Anderso 00:00: n 00 ACETYLCY DRUG Active Other MD POWERS INGREDI 2-15 Anderso 00:00: n 00 ACETYLCY DRUG Active Other MD POWERS INGREDI 2-15 Anderso 00:00: n 00 ACETYLCY DRUG Active Other MD POWERS INGREDI 2-15 Anderso 00:00: n 00 ACETYLCY DRUG Active Other MD POWERS INGREDI 2-15 Anderso 00:00: n 00 ACETYLCY DRUG Active Other MD POWERS INGREDI 2-15 Anderso 00:00: n 00 ACETYLCY DRUG Active Other MD POWERS INGREDI 2-15 Anderso 00:00: n 00 ACETYLCY DRUG Active Other MD POWERS INGREDI 2-15 Anderso 00:00: n 00 ACETYLCY DRUG Active Other MD POWERS INGREDI 2-15 Anderso 00:00: n 00 ACETYLCY DRUG Active Other MD POWERS INGREDI 2-15 Anderso 00:00: n 00 ACETYLCY DRUG Active Other MD POWERS INGREDI 2-15 Anderso 00:00: n 00 ACETYLCY DRUG Active Other MD POEWRS INGREDI 2-15 Anderso 00:00: n 00 Acetylcy Propensi Active Other (See Aggravate Univers reece ty to Comments) 2-15 d; throat ity of adverse 00:00: feels [place] reaction 00 swollen MD antonio Raza n [facility] ETHANOL DRUG Active MD (ETHYL 8-30 Anderso ALCOHOL) 00:00: n 00 ETHANOL DRUG Active MD (ETHYL 8-30 Anderso ALCOHOL) 00:00: n 00 ETHANOL DRUG Active MD (ETHYL 8-30 Anderso ALCOHOL) 00:00: n 00 ETHANOL DRUG Active 2022-0 MD (ETHYL 8-30 Anderso ALCOHOL) 00:00: n 00 ETHANOL DRUG Active 2022-0 MD (ETHYL 8-30 Anderso ALCOHOL) 00:00: n 00 ETHANOL DRUG Active 2022-0 MD (ETHYL 8-30 Anderso ALCOHOL) 00:00: n 00 ETHANOL DRUG Active 2022-0 MD (ETHYL 8-30 Anderso ALCOHOL) 00:00: n 00 ETHANOL DRUG Active 2022-0 MD (ETHYL 8-30 Anderso ALCOHOL) 00:00: n 00 ETHANOL DRUG Active 2022-0 MD (ETHYL 8-30 Anderso ALCOHOL) 00:00: n 00 ETHANOL DRUG Active 2022-0 MD (ETHYL 8-30 Anderso ALCOHOL) 00:00: n 00 ETHANOL DRUG Active 2022-0 MD (ETHYL 8-30 Anderso ALCOHOL) 00:00: n 00 ETHANOL DRUG Active 2022-0 MD (ETHYL 8-30 Anderso ALCOHOL) 00:00: n 00 ETHANOL DRUG Active 2022-0 MD (ETHYL 8-30 Anderso ALCOHOL) 00:00: n 00 ETHANOL DRUG Active 2022-0 MD (ETHYL 8-30 Anderso ALCOHOL) 00:00: n 00 ETHANOL DRUG Active 2022-0 MD (ETHYL 8-30 Anderso ALCOHOL) 00:00: n 00 ETHANOL DRUG Active 2022-0 MD (ETHYL 8-30 Anderso ALCOHOL) 00:00: n 00 ETHANOL DRUG Active 2022-0 MD (ETHYL 8-30 Anderso ALCOHOL) 00:00: n 00 ETHANOL DRUG Active 2022-0 MD (ETHYL 8-30 Anderso ALCOHOL) 00:00: n 00 ETHANOL DRUG Active 2022-0 MD (ETHYL 8-30 Anderso ALCOHOL) 00:00: n 00 ETHANOL DRUG Active 2022-0 MD (ETHYL 8-30 Anderso ALCOHOL) 00:00: n 00 ETHANOL DRUG Active 2022-0 MD (ETHYL 8-30 Anderso ALCOHOL) 00:00: n 00 ETHANOL DRUG Active 2022-0 MD (ETHYL 8-30 Anderso ALCOHOL) 00:00: n 00 ETHANOL DRUG Active 2022-0 MD (ETHYL 8-30 Anderso ALCOHOL) 00:00: n 00 ETHANOL DRUG Active 2022-0 MD (ETHYL 8-30 Anderso ALCOHOL) 00:00: n 00 ETHANOL DRUG Active 2022-0 MD (ETHYL 8-30 Anderso ALCOHOL) 00:00: n 00 ETHANOL DRUG Active 2022-0 MD (ETHYL 8-30 Anderso ALCOHOL) 00:00: n 00 ETHANOL DRUG Active 2022-0 MD (ETHYL 8-30 Anderso ALCOHOL) 00:00: n 00 ETHANOL DRUG Active 2022-0 MD (ETHYL 8-30 Anderso ALCOHOL) 00:00: n 00 ETHANOL DRUG Active 2022-0 MD (ETHYL 8-30 Anderso ALCOHOL) 00:00: n 00 ETHANOL DRUG Active 2022-0 MD (ETHYL 8-30 Anderso ALCOHOL) 00:00: n 00 ETHANOL DRUG Active 2022-0 MD (ETHYL 8-30 Anderso ALCOHOL) 00:00: n 00 ETHANOL DRUG Active 2022-0 MD (ETHYL 8-30 Anderso ALCOHOL) 00:00: n 00 ETHANOL DRUG Active 2022-0 MD (ETHYL 8-30 Anderso ALCOHOL) 00:00: n 00 ETHANOL DRUG Active 2022-0 MD (ETHYL 8-30 Anderso ALCOHOL) 00:00: n 00 ETHANOL DRUG Active 2022-0 MD (ETHYL 8-30 Anderso ALCOHOL) 00:00: n 00 ETHANOL DRUG Active 2022-0 MD (ETHYL 8-30 Anderso ALCOHOL) 00:00: n 00 ETHANOL DRUG Active 2022-0 MD (ETHYL 8-30 Anderso ALCOHOL) 00:00: n 00 ETHANOL DRUG Active 2022-0 MD (ETHYL 8-30 Anderso ALCOHOL) 00:00: n 00 ETHANOL DRUG Active 2022-0 MD (ETHYL 8-30 Anderso ALCOHOL) 00:00: n 00 ETHANOL DRUG Active 2022-0 MD (ETHYL 8-30 Anderso ALCOHOL) 00:00: n 00 ETHANOL DRUG Active 2022-0 MD (ETHYL 8-30 Anderso ALCOHOL) 00:00: n 00 ETHANOL DRUG Active 2022-0 MD (ETHYL 8-30 Anderso ALCOHOL) 00:00: n 00 ETHANOL DRUG Active 2022-0 MD (ETHYL 8-30 Anderso ALCOHOL) 00:00: n 00 ETHANOL DRUG Active 2022-0 MD (ETHYL 8-30 Anderso ALCOHOL) 00:00: n 00 ETHANOL DRUG Active 2022-0 MD (ETHYL 8-30 Anderso ALCOHOL) 00:00: n 00 ETHANOL DRUG Active 2022-0 MD (ETHYL 8-30 Anderso ALCOHOL) 00:00: n 00 ETHANOL DRUG Active 2022-0 MD (ETHYL 8-30 Anderso ALCOHOL) 00:00: n 00 ETHANOL DRUG Active 2022-0 MD (ETHYL 8-30 Anderso ALCOHOL) 00:00: n 00 ETHANOL DRUG Active 2022-0 MD (ETHYL 8-30 Anderso ALCOHOL) 00:00: n 00 Ethanol Propensi Active 2022-0 Univers (Ethyl ty to 8-30 ity of Alcohol) adverse 00:00: [place] reaction 00 MD antonio card [facility] IODINATE Drug Active High Anaphylaxis 2022-0 MD D Class 8-28 Anderso CONTRAST 00:00: n MEDIA 00 IODINATE Drug Active High Anaphylaxis 2022-0 MD D Class 8-28 Anderso CONTRAST 00:00: n MEDIA 00 IODINATE Drug Active High Anaphylaxis 2022-0 MD D Class 8-28 Anderso CONTRAST 00:00: n MEDIA 00 IODINATE Drug Active High Anaphylaxis 2022-0 MD D Class 8-28 Anderso CONTRAST 00:00: n MEDIA 00 IODINATE Drug Active High Anaphylaxis 2022-0 MD D Class 8-28 Anderso CONTRAST 00:00: n MEDIA 00 IODINATE Drug Active High Anaphylaxis 2022-0 MD D Class 8-28 Anderso CONTRAST 00:00: n MEDIA 00 IODINATE Drug Active High Anaphylaxis 2022-0 MD D Class 8-28 Anderso CONTRAST 00:00: n MEDIA 00 IODINATE Drug Active High Anaphylaxis 2022-0 MD D Class 8-28 Anderso CONTRAST 00:00: n MEDIA 00 IODINATE Drug Active High Anaphylaxis 2022-0 MD D Class 8-28 Anderso CONTRAST 00:00: n MEDIA 00 IODINATE Drug Active High Anaphylaxis 2022-0 MD D Class 8-28 Anderso CONTRAST 00:00: n MEDIA 00 IODINATE Drug Active High Anaphylaxis 2022-0 MD D Class 8-28 Anderso CONTRAST 00:00: n MEDIA 00 IODINATE Drug Active High Anaphylaxis 2022-0 MD D Class 8-28 Anderso CONTRAST 00:00: n MEDIA 00 IODINATE Drug Active High Anaphylaxis 2022-0 MD D Class 8-28 Anderso CONTRAST 00:00: n MEDIA 00 IODINATE Drug Active High Anaphylaxis 2022-0 MD D Class 8-28 Anderso CONTRAST 00:00: n MEDIA 00 IODINATE Drug Active High Anaphylaxis 2022-0 MD D Class 8-28 Anderso CONTRAST 00:00: n MEDIA 00 IODINATE Drug Active High Anaphylaxis 2022-0 MD D Class 8-28 Anderso CONTRAST 00:00: n MEDIA 00 IODINATE Drug Active High Anaphylaxis 2022-0 MD D Class 8-28 Anderso CONTRAST 00:00: n MEDIA 00 IODINATE Drug Active High Anaphylaxis 2022-0 MD D Class 8-28 Anderso CONTRAST 00:00: n MEDIA 00 IODINATE Drug Active High Anaphylaxis 2022-0 MD D Class 8-28 Anderso CONTRAST 00:00: n MEDIA 00 IODINATE Drug Active High Anaphylaxis 2022-0 MD D Class 8-28 Anderso CONTRAST 00:00: n MEDIA 00 IODINATE Drug Active High Anaphylaxis 2022-0 MD D Class 8-28 Anderso CONTRAST 00:00: n MEDIA 00 IODINATE Drug Active High Anaphylaxis 2022-0 MD D Class 8-28 Anderso CONTRAST 00:00: n MEDIA 00 IODINATE Drug Active High Anaphylaxis 2022-0 MD D Class 8-28 Anderso CONTRAST 00:00: n MEDIA 00 IODINATE Drug Active High Anaphylaxis 2022-0 MD D Class 8-28 Anderso CONTRAST 00:00: n MEDIA 00 IODINATE Drug Active High Anaphylaxis 2022-0 MD D Class 8-28 Anderso CONTRAST 00:00: n MEDIA 00 IODINATE Drug Active High Anaphylaxis 2022-0 MD D Class 8-28 Anderso CONTRAST 00:00: n MEDIA 00 IODINATE Drug Active High Anaphylaxis 2022-0 MD D Class 8-28 Anderso CONTRAST 00:00: n MEDIA 00 IODINATE Drug Active High Anaphylaxis 2022-0 MD D Class 8-28 Anderso CONTRAST 00:00: n MEDIA 00 IODINATE Drug Active High Anaphylaxis 2022-0 MD D Class 8-28 Anderso CONTRAST 00:00: n MEDIA 00 IODINATE Drug Active High Anaphylaxis 2022-0 MD D Class 8-28 Anderso CONTRAST 00:00: n MEDIA 00 IODINATE Drug Active High Anaphylaxis 2022-0 MD D Class 8-28 Anderso CONTRAST 00:00: n MEDIA 00 IODINATE Drug Active High Anaphylaxis 2022-0 MD D Class 8-28 Anderso CONTRAST 00:00: n MEDIA 00 IODINATE Drug Active High Anaphylaxis 2022-0 MD D Class 8-28 Anderso CONTRAST 00:00: n MEDIA 00 IODINATE Drug Active High Anaphylaxis 2022-0 MD D Class 8-28 Anderso CONTRAST 00:00: n MEDIA 00 IODINATE Drug Active High Anaphylaxis 2022-0 MD D Class 8-28 Anderso CONTRAST 00:00: n MEDIA 00 IODINATE Drug Active High Anaphylaxis 2022-0 MD D Class 8-28 Anderso CONTRAST 00:00: n MEDIA 00 IODINATE Drug Active High Anaphylaxis 2022-0 MD D Class 8-28 Anderso CONTRAST 00:00: n MEDIA 00 IODINATE Drug Active High Anaphylaxis 2022-0 MD D Class 8-28 Anderso CONTRAST 00:00: n MEDIA 00 IODINATE Drug Active High Anaphylaxis 2022-0 MD D Class 8-28 Anderso CONTRAST 00:00: n MEDIA 00 IODINATE Drug Active High Anaphylaxis 2022-0 MD D Class 8-28 Anderso CONTRAST 00:00: n MEDIA 00 IODINATE Drug Active High Anaphylaxis 2022-0 MD D Class 8-28 Anderso CONTRAST 00:00: n MEDIA 00 IODINATE Drug Active High Anaphylaxis 2022-0 MD D Class 8-28 Anderso CONTRAST 00:00: n MEDIA 00 IODINATE Drug Active High Anaphylaxis 2022-0 MD D Class 8-28 Anderso CONTRAST 00:00: n MEDIA 00 IODINATE Drug Active High Anaphylaxis 2022-0 MD D Class 8-28 Anderso CONTRAST 00:00: n MEDIA 00 IODINATE Drug Active High Anaphylaxis 2022-0 MD D Class 8-28 Anderso CONTRAST 00:00: n MEDIA 00 IODINATE Drug Active High Anaphylaxis 2022-0 MD D Class 8-28 Anderso CONTRAST 00:00: n MEDIA 00 IODINATE Drug Active High Anaphylaxis 2022-0 MD D Class 8-28 Anderso CONTRAST 00:00: n MEDIA 00 IODINATE Drug Active High Anaphylaxis 2022-0 MD D Class 8-28 Anderso CONTRAST 00:00: n MEDIA 00 IODINATE Drug Active High Anaphylaxis 2022-0 MD D Class 8-28 Anderso CONTRAST 00:00: n MEDIA 00 IODINATE Drug Active High Anaphylaxis 2022-0 MD D Class 8-28 Anderso CONTRAST 00:00: n MEDIA 00 IODINATE Drug Active High Anaphylaxis 2022-0 MD D Class 8-28 Anderso CONTRAST 00:00: n MEDIA 00 IODINATE Drug Active High Anaphylaxis 2022-0 MD D Class 8-28 Anderso CONTRAST 00:00: n MEDIA 00 IODINATE Drug Active High Anaphylaxis 2022-0 MD D Class 8-28 Anderso CONTRAST 00:00: n MEDIA 00 IODINATE Drug Active High Anaphylaxis 2022-0 MD D Class 8-28 Anderso CONTRAST 00:00: n MEDIA 00 IODINATE Drug Active High Anaphylaxis 2022-0 MD D Class 8-28 Anderso CONTRAST 00:00: n MEDIA 00 IODINATE Drug Active High Anaphylaxis 2022-0 MD D Class 8-28 Anderso CONTRAST 00:00: n MEDIA 00 IODINATE Drug Active High Anaphylaxis 2022-0 MD D Class 8-28 Anderso CONTRAST 00:00: n MEDIA 00 IODINATE Drug Active High Anaphylaxis 2022-0 MD D Class 8-28 Anderso CONTRAST 00:00: n MEDIA 00 IODINATE Drug Active High Anaphylaxis 2022-0 MD D Class 8-28 Anderso CONTRAST 00:00: n MEDIA 00 IODINATE Drug Active High Anaphylaxis 2022-0 MD D Class 8-28 Anderso CONTRAST 00:00: n MEDIA 00 IODINATE Drug Active High Anaphylaxis 2022-0 MD D Class 8-28 Anderso CONTRAST 00:00: n MEDIA 00 IODINATE Drug Active High Anaphylaxis 2022-0 MD D Class 8-28 Anderso CONTRAST 00:00: n MEDIA 00 IODINATE Drug Active High Anaphylaxis 2022-0 MD D Class 8-28 Anderso CONTRAST 00:00: n MEDIA 00 IODINATE Drug Active High Anaphylaxis 2022-0 MD D Class 8-28 Anderso CONTRAST 00:00: n MEDIA 00 IODINATE Drug Active High Anaphylaxis 2022-0 MD D Class 8-28 Anderso CONTRAST 00:00: n MEDIA 00 IODINATE Drug Active High Anaphylaxis 2022-0 MD D Class 8-28 Anderso CONTRAST 00:00: n MEDIA 00 IODINATE Drug Active High Anaphylaxis 2022-0 MD D Class 8-28 Anderso CONTRAST 00:00: n MEDIA 00 IODINATE Drug Active High Anaphylaxis 2022-0 MD D Class 8-28 Anderso CONTRAST 00:00: n MEDIA 00 IODINATE Drug Active High Anaphylaxis 2022-0 MD D Class 8-28 Anderso CONTRAST 00:00: n MEDIA 00 IODINATE Drug Active High Anaphylaxis 2022-0 MD D Class 8-28 Anderso CONTRAST 00:00: n MEDIA 00 IODINATE Drug Active High Anaphylaxis 2022-0 MD D Class 8-28 Anderso CONTRAST 00:00: n MEDIA 00 IODINATE Drug Active High Anaphylaxis 2022-0 MD D Class 8-28 Anderso CONTRAST 00:00: n MEDIA 00 IODINATE Drug Active High Anaphylaxis 2022-0 MD D Class 8-28 Anderso CONTRAST 00:00: n MEDIA 00 IODINATE Drug Active High Anaphylaxis 2022-0 MD D Class 8-28 Anderso CONTRAST 00:00: n MEDIA 00 IODINATE Drug Active High Anaphylaxis 2022-0 MD D Class 8-28 Anderso CONTRAST 00:00: n MEDIA 00 IODINATE Drug Active High Anaphylaxis 2022-0 MD D Class 8-28 Anderso CONTRAST 00:00: n MEDIA 00 IODINATE Drug Active High Anaphylaxis 2022-0 MD D Class 8-28 Anderso CONTRAST 00:00: n MEDIA 00 IODINATE Drug Active High Anaphylaxis 2022-0 MD D Class 8-28 Anderso CONTRAST 00:00: n MEDIA 00 IODINATE Drug Active High Anaphylaxis 2022-0 MD D Class 8-28 Anderso CONTRAST 00:00: n MEDIA 00 IODINATE Drug Active High Anaphylaxis 2022-0 MD D Class 8-28 Anderso CONTRAST 00:00: n MEDIA 00 IODINATE Drug Active High Anaphylaxis 2022-0 MD D Class 8-28 Anderso CONTRAST 00:00: n MEDIA 00 IODINATE Drug Active High Anaphylaxis 2022-0 MD D Class 8-28 Anderso CONTRAST 00:00: n MEDIA 00 IODINATE Drug Active High Anaphylaxis 2022-0 MD D Class 8-28 Anderso CONTRAST 00:00: n MEDIA 00 IODINATE Drug Active High Anaphylaxis 2022-0 MD D Class 8-28 Anderso CONTRAST 00:00: n MEDIA 00 Iodinate Propensi Active Anaphylaxis 2022-0 U nivers d ty to 8-28 ity of Contrast adverse 00:00: [place] [facility] reaction 00 [facility] MEROPENE DRUG Active High 2-0 MD M INGREDI 8-24 Anderso 00:00: n 00 MEROPENE DRUG Active High 2022-0 MD M INGREDI 8-24 Anderso 00:00: n 00 MEROPENE DRUG Active High 2022-0 MD M INGREDI 8-24 Anderso 00:00: n 00 MEROPENE DRUG Active High 2022-0 MD M INGREDI 8-24 Anderso 00:00: n 00 MEROPENE DRUG Active High 2022-0 MD M INGREDI 8-24 Anderso 00:00: n 00 MEROPENE DRUG Active High 2022-0 MD M INGREDI 8-24 Anderso 00:00: n 00 MEROPENE DRUG Active High 2022-0 MD M INGREDI 8-24 Anderso 00:00: n 00 MEROPENE DRUG Active High 2022-0 MD M INGREDI 8-24 Anderso 00:00: n 00 MEROPENE DRUG Active High 2022-0 MD M INGREDI 8-24 Anderso 00:00: n 00 MEROPENE DRUG Active High 2022-0 MD M INGREDI 8-24 Anderso 00:00: n 00 MEROPENE DRUG Active High 2022-0 MD M INGREDI 8-24 Anderso 00:00: n 00 MEROPENE DRUG Active High 2022-0 MD M INGREDI 8-24 Anderso 00:00: n 00 MEROPENE DRUG Active High 2022-0 MD M INGREDI 8-24 Anderso 00:00: n 00 MEROPENE DRUG Active High 2022-0 MD M INGREDI 8-24 Anderso 00:00: n 00 MEROPENE DRUG Active High 2022-0 MD M INGREDI 8-24 Anderso 00:00: n 00 MEROPENE DRUG Active High 2022-0 MD M INGREDI 8-24 Anderso 00:00: n 00 MEROPENE DRUG Active High 2022-0 MD M INGREDI 8-24 Anderso 00:00: n 00 MEROPENE DRUG Active High 2022-0 MD M INGREDI 8-24 Anderso 00:00: n 00 MEROPENE DRUG Active High 2022-0 MD M INGREDI 8-24 Anderso 00:00: n 00 MEROPENE DRUG Active High 2022-0 MD M INGREDI 8-24 Anderso 00:00: n 00 MEROPENE DRUG Active High 2022-0 MD M INGREDI 8-24 Anderso 00:00: n 00 MEROPENE DRUG Active High 2022-0 MD M INGREDI 8-24 Anderso 00:00: n 00 MEROPENE DRUG Active High 2022-0 MD M INGREDI 8-24 Anderso 00:00: n 00 MEROPENE DRUG Active High 2022-0 MD M INGREDI 8-24 Anderso 00:00: n 00 MEROPENE DRUG Active High 2022-0 MD M INGREDI 8-24 Anderso 00:00: n 00 MEROPENE DRUG Active High 2022-0 MD M INGREDI 8-24 Anderso 00:00: n 00 MEROPENE DRUG Active High 2022-0 MD M INGREDI 8-24 Anderso 00:00: n 00 MEROPENE DRUG Active High 2022-0 MD M INGREDI 8-24 Anderso 00:00: n 00 MEROPENE DRUG Active High 2022-0 MD M INGREDI 8-24 Anderso 00:00: n 00 MEROPENE DRUG Active High 2022-0 MD M INGREDI 8-24 Anderso 00:00: n 00 MEROPENE DRUG Active High 2022-0 MD M INGREDI 8-24 Anderso 00:00: n 00 MEROPENE DRUG Active High 2022-0 MD M INGREDI 8-24 Anderso 00:00: n 00 MEROPENE DRUG Active High 2022-0 MD M INGREDI 8-24 Anderso 00:00: n 00 MEROPENE DRUG Active High 2022-0 MD M INGREDI 8-24 Anderso 00:00: n 00 MEROPENE DRUG Active High 2022-0 MD M INGREDI 8-24 Anderso 00:00: n 00 MEROPENE DRUG Active High 2022-0 MD M INGREDI 8-24 Anderso 00:00: n 00 MEROPENE DRUG Active High 2022-0 MD M INGREDI 8-24 Anderso 00:00: n 00 MEROPENE DRUG Active High 2022-0 MD M INGREDI 8-24 Anderso 00:00: n 00 MEROPENE DRUG Active High 2022-0 MD M INGREDI 8-24 Anderso 00:00: n 00 MEROPENE DRUG Active High 2022-0 MD M INGREDI 8-24 Anderso 00:00: n 00 MEROPENE DRUG Active High 2022-0 MD M INGREDI 8-24 Anderso 00:00: n 00 MEROPENE DRUG Active High 2022-0 MD M INGREDI 8-24 Anderso 00:00: n 00 MEROPENE DRUG Active High 2022-0 MD M INGREDI 8-24 Anderso 00:00: n 00 MEROPENE DRUG Active High 2022-0 MD M INGREDI 8-24 Anderso 00:00: n 00 MEROPENE DRUG Active High 2022-0 MD M INGREDI 8-24 Anderso 00:00: n 00 MEROPENE DRUG Active High 2022-0 MD M INGREDI 8-24 Anderso 00:00: n 00 MEROPENE DRUG Active High 2022-0 MD M INGREDI 8-24 Anderso 00:00: n 00 MEROPENE DRUG Active High 2022-0 MD M INGREDI 8-24 Anderso 00:00: n 00 MEROPENE DRUG Active High 2022-0 MD M INGREDI 8-24 Anderso 00:00: n 00 MEROPENE DRUG Active High 2022-0 MD M INGREDI 8-24 Anderso 00:00: n 00 MEROPENE DRUG Active High 2022-0 MD M INGREDI 8-24 Anderso 00:00: n 00 MEROPENE DRUG Active High 2022-0 MD M INGREDI 8-24 Anderso 00:00: n 00 MEROPENE DRUG Active High 2022-0 MD M INGREDI 8-24 Anderso 00:00: n 00 MEROPENE DRUG Active High 2022-0 MD M INGREDI 8-24 Anderso 00:00: n 00 MEROPENE DRUG Active High 2022-0 MD M INGREDI 8-24 Anderso 00:00: n 00 MEROPENE DRUG Active High 2022-0 MD M INGREDI 8-24 Anderso 00:00: n 00 MEROPENE DRUG Active High 2022-0 MD M INGREDI 8-24 Anderso 00:00: n 00 MEROPENE DRUG Active High 2022-0 MD M INGREDI 8-24 Anderso 00:00: n 00 MEROPENE DRUG Active High 2022-0 MD M INGREDI 8-24 Anderso 00:00: n 00 MEROPENE DRUG Active High 2022-0 MD M INGREDI 8-24 Anderso 00:00: n 00 MEROPENE DRUG Active High 2022-0 MD M INGREDI 8-24 Anderso 00:00: n 00 MEROPENE DRUG Active High 2022-0 MD M INGREDI 8-24 Anderso 00:00: n 00 MEROPENE DRUG Active High 2022-0 MD M INGREDI 8-24 Anderso 00:00: n 00 MEROPENE DRUG Active High 2022-0 MD M INGREDI 8-24 Anderso 00:00: n 00 MEROPENE DRUG Active High 2022-0 MD M INGREDI 8-24 Anderso 00:00: n 00 MEROPENE DRUG Active High 2022-0 MD M INGREDI 8-24 Anderso 00:00: n 00 MEROPENE DRUG Active High 2022-0 MD M INGREDI 8-24 Anderso 00:00: n 00 MEROPENE DRUG Active High 2022-0 MD M INGREDI 8-24 Anderso 00:00: n 00 MEROPENE DRUG Active High 2022-0 MD M INGREDI 8-24 Anderso 00:00: n 00 MEROPENE DRUG Active High 2022-0 MD M INGREDI 8-24 Anderso 00:00: n 00 MEROPENE DRUG Active High 2022-0 MD M INGREDI 8-24 Anderso 00:00: n 00 MEROPENE DRUG Active High 2022-0 MD M INGREDI 8-24 Anderso 00:00: n 00 MEROPENE DRUG Active High 2022-0 MD M INGREDI 8-24 Anderso 00:00: n 00 MEROPENE DRUG Active High 2022-0 MD M INGREDI 8-24 Anderso 00:00: n 00 MEROPENE DRUG Active High 2022-0 MD M INGREDI 8-24 Anderso 00:00: n 00 MEROPENE DRUG Active High 2022-0 MD M INGREDI 8-24 Anderso 00:00: n 00 MEROPENE DRUG Active High 2022-0 MD M INGREDI 8-24 Anderso 00:00: n 00 MEROPENE DRUG Active High 2022-0 MD M INGREDI 8-24 Anderso 00:00: n 00 MEROPENE DRUG Active High 2022-0 MD M INGREDI 8-24 Anderso 00:00: n 00 MEROPENE DRUG Active High 2022-0 MD M INGREDI 8-24 Anderso 00:00: n 00 MEROPENE DRUG Active High 2022-0 MD M INGREDI 8-24 Anderso 00:00: n 00 MEROPENE DRUG Active High 2022-0 MD M INGREDI 8-24 Anderso 00:00: n 00 MEROPENE DRUG Active High 2022-0 MD M INGREDI 8-24 Anderso 00:00: n 00 MEROPENE DRUG Active High 2022-0 MD M INGREDI 8-24 Anderso 00:00: n 00 MEROPENE DRUG Active High 2022-0 MD M INGREDI 8-24 Anderso 00:00: n 00 MEROPENE DRUG Active High 2022-0 MD M INGREDI 8-24 Anderso 00:00: n 00 MEROPENE DRUG Active High 2022-0 MD M INGREDI 8-24 Anderso 00:00: n 00 MEROPENE DRUG Active High 2022-0 MD M INGREDI 8-24 Anderso 00:00: n 00 MEROPENE DRUG Active High 2022-0 MD M INGREDI 8-24 Anderso 00:00: n 00 MEROPENE DRUG Active High 2022-0 MD M INGREDI 8-24 Anderso 00:00: n 00 MEROPENE DRUG Active High 2022-0 MD M INGREDI 8-24 Anderso 00:00: n 00 MEROPENE DRUG Active High 2022-0 MD M INGREDI 8-24 Anderso 00:00: n 00 MEROPENE DRUG Active High 2022-0 MD M INGREDI 8-24 Anderso 00:00: n 00 MEROPENE DRUG Active High 2022-0 MD M INGREDI 8-24 Anderso 00:00: n 00 MEROPENE DRUG Active High 2022-0 MD M INGREDI 8-24 Anderso 00:00: n 00 MEROPENE DRUG Active High 2022-0 MD M INGREDI 8-24 Anderso 00:00: n 00 MEROPENE DRUG Active High 2022-0 MD M INGREDI 8-24 Anderso 00:00: n 00 MEROPENE DRUG Active High 2022-0 MD M INGREDI 8-24 Anderso 00:00: n 00 MEROPENE DRUG Active High 2022-0 MD M INGREDI 8-24 Anderso 00:00: n 00 MEROPENE DRUG Active High 2022-0 MD M INGREDI 8-24 Anderso 00:00: n 00 MEROPENE DRUG Active High 2022-0 MD M INGREDI 8-24 Anderso 00:00: n 00 MEROPENE DRUG Active High 2022-0 MD M INGREDI 8-24 Anderso 00:00: n 00 MEROPENE DRUG Active High 2022-0 MD M INGREDI 8-24 Anderso 00:00: n 00 MEROPENE DRUG Active High 2022-0 MD M INGREDI 8-24 Anderso 00:00: n 00 MEROPENE DRUG Active High 2022-0 MD M INGREDI 8-24 Anderso 00:00: n 00 MEROPENE DRUG Active High 2022-0 MD M INGREDI 8-24 Anderso 00:00: n 00 MEROPENE DRUG Active High 2022-0 MD M INGREDI 8-24 Anderso 00:00: n 00 MEROPENE DRUG Active High 2022-0 MD M INGREDI 8-24 Anderso 00:00: n 00 MEROPENE DRUG Active High 2022-0 MD M INGREDI 8-24 Anderso 00:00: n 00 MEROPENE DRUG Active High 2022-0 MD M INGREDI 8-24 Anderso 00:00: n 00 MEROPENE DRUG Active High 2022-0 MD M INGREDI 8-24 Anderso 00:00: n 00 MEROPENE DRUG Active High 2022-0 MD M INGREDI 8-24 Anderso 00:00: n 00 MEROPENE DRUG Active High 2022-0 MD M INGREDI 8-24 Anderso 00:00: n 00 MEROPENE DRUG Active High 2022-0 MD M INGREDI 8-24 Anderso 00:00: n 00 MEROPENE DRUG Active High 2022-0 MD M INGREDI 8-24 Anderso 00:00: n 00 MEROPENE DRUG Active High 2022-0 MD M INGREDI 8-24 Anderso 00:00: n 00 MEROPENE DRUG Active High 2022-0 MD M INGREDI 8-24 Anderso 00:00: n 00 MEROPENE DRUG Active High 2022-0 MD M INGREDI 8-24 Anderso 00:00: n 00 MEROPENE DRUG Active High 2022-0 MD M INGREDI 8-24 Anderso 00:00: n 00 MEROPENE DRUG Active High 2022-0 MD M INGREDI 8-24 Anderso 00:00: n 00 MEROPENE DRUG Active High 2022-0 MD M INGREDI 8-24 Anderso 00:00: n 00 MEROPENE DRUG Active High 2022-0 MD M INGREDI 8-24 Anderso 00:00: n 00 MEROPENE DRUG Active High 2022-0 MD M INGREDI 8-24 Anderso 00:00: n 00 MEROPENE DRUG Active High 2022-0 MD M INGREDI 8-24 Anderso 00:00: n 00 MEROPENE DRUG Active High 2022-0 MD M INGREDI 8-24 Anderso 00:00: n 00 MEROPENE DRUG Active High 2022-0 MD M INGREDI 8-24 Anderso 00:00: n 00 MEROPENE DRUG Active High 2022-0 MD M INGREDI 8-24 Anderso 00:00: n 00 MEROPENE DRUG Active High 2022-0 MD M INGREDI 8-24 Anderso 00:00: n 00 MEROPENE DRUG Active High 2022-0 MD M INGREDI 8-24 Anderso 00:00: n 00 MEROPENE DRUG Active High 2022-0 MD M INGREDI 8-24 Anderso 00:00: n 00 MEROPENE DRUG Active High 2022-0 MD M INGREDI 8-24 Anderso 00:00: n 00 MEROPENE DRUG Active High 2022-0 MD M INGREDI 8-24 Anderso 00:00: n 00 MEROPENE DRUG Active High 2022-0 MD M INGREDI 8-24 Anderso 00:00: n 00 MEROPENE DRUG Active High 2022-0 MD M INGREDI 8-24 Anderso 00:00: n 00 MEROPENE DRUG Active High 2022-0 MD M INGREDI 8-24 Anderso 00:00: n 00 MEROPENE DRUG Active High 2022-0 MD M INGREDI 8-24 Anderso 00:00: n 00 MEROPENE DRUG Active High 2022-0 MD M INGREDI 8-24 Anderso 00:00: n 00 MEROPENE DRUG Active High 2022-0 MD M INGREDI 8-24 Anderso 00:00: n 00 MEROPENE DRUG Active High 2022-0 MD M INGREDI 8-24 Anderso 00:00: n 00 MEROPENE DRUG Active High 2022-0 MD M INGREDI 8-24 Anderso 00:00: n 00 MEROPENE DRUG Active High 2022-0 MD M INGREDI 8-24 Anderso 00:00: n 00 MEROPENE DRUG Active High 2022-0 MD M INGREDI 8-24 Anderso 00:00: n 00 MEROPENE DRUG Active High 2022-0 MD M INGREDI 8-24 Anderso 00:00: n 00 MEROPENE DRUG Active High 2022-0 MD M INGREDI 8-24 Anderso 00:00: n 00 MEROPENE DRUG Active High 2022-0 MD M INGREDI 8-24 Anderso 00:00: n 00 MEROPENE DRUG Active High 2022-0 MD M INGREDI 8-24 Anderso 00:00: n 00 MEROPENE DRUG Active High 2022-0 MD M INGREDI 8-24 Anderso 00:00: n 00 MEROPENE DRUG Active High 2022-0 MD M INGREDI 8-24 Anderso 00:00: n 00 MEROPENE DRUG Active High 2022-0 MD M INGREDI 8-24 Anderso 00:00: n 00 MEROPENE DRUG Active High 2022-0 MD M INGREDI 8-24 Anderso 00:00: n 00 MEROPENE DRUG Active High 2022-0 MD M INGREDI 8-24 Anderso 00:00: n 00 MEROPENE DRUG Active High 2022-0 MD M INGREDI 8-24 Anderso 00:00: n 00 MEROPENE DRUG Active High 2022-0 MD M INGREDI 8-24 Anderso 00:00: n 00 MEROPENE DRUG Active High 2022-0 MD M INGREDI 8-24 Anderso 00:00: n 00 MEROPENE DRUG Active High 2022-0 MD M INGREDI 8-24 Anderso 00:00: n 00 Meropene Drug Active 2022-0 Unable to Unive rs m Allergy 8-24 move out ity of 00:00: of bed [place] 00 MD [facility] Dexameth Propensi Active Swelling 2-0 Throat Univ ers asone ty to 8-20 swelling ity of adverse 00:00: / stridor [place] reaction 00 [facility] Meropene Propensi Active Cough 2-0 Balance Unive rs m ty to 8-20 issues / ity of adverse 00:00: migraine [place] reaction 00 [facility] DEXAMETH DRUG Active Swelling 2-0 Univer s ASONE INGREDI 8-20 ity of 00:00: [place] [facility] MEROPENE DRUG Active COUGH 2-0 Univers M INGREDI 8-20 ity of 00:00: [place] 00 [facility] DEXAMETH DRUG Active Swelling 2022-0 MD ASONE INGREDI 8-17 Anderso 00:00: n 00 DEXAMETH DRUG Active Swelling 2022-0 MD ASONE INGREDI 8-17 Anderso 00:00: n 00 DEXAMETH DRUG Active Swelling 2022-0 MD ASONE INGREDI 8-17 Anderso 00:00: n 00 DEXAMETH DRUG Active Swelling 2022-0 MD ASONE INGREDI 8-17 Anderso 00:00: n 00 DEXAMETH DRUG Active Swelling 2022-0 MD ASONE INGREDI 8-17 Anderso 00:00: n 00 DEXAMETH DRUG Active Swelling 2022-0 MD ASONE INGREDI 8-17 Anderso 00:00: n 00 DEXAMETH DRUG Active Swelling 2022-0 MD ASONE INGREDI 8-17 Anderso 00:00: n 00 DEXAMETH DRUG Active Swelling 2022-0 MD ASONE INGREDI 8-17 Anderso 00:00: n 00 DEXAMETH DRUG Active Swelling 2022-0 MD ASONE INGREDI 8-17 Anderso 00:00: n 00 DEXAMETH DRUG Active Swelling 2022-0 MD ASONE INGREDI 8-17 Anderso 00:00: n 00 DEXAMETH DRUG Active Swelling 2022-0 MD ASONE INGREDI 8-17 Anderso 00:00: n 00 DEXAMETH DRUG Active Swelling 2022-0 MD ASONE INGREDI 8-17 Anderso 00:00: n 00 DEXAMETH DRUG Active Swelling 2022-0 MD ASONE INGREDI 8-17 Anderso 00:00: n 00 DEXAMETH DRUG Active Swelling 2022-0 MD ASONE INGREDI 8-17 Anderso 00:00: n 00 DEXAMETH DRUG Active Swelling 2022-0 MD ASONE INGREDI 8-17 Anderso 00:00: n 00 DEXAMETH DRUG Active Swelling 2022-0 MD ASONE INGREDI 8-17 Anderso 00:00: n 00 DEXAMETH DRUG Active Swelling 2022-0 MD ASONE INGREDI 8-17 Anderso 00:00: n 00 DEXAMETH DRUG Active Swelling 2022-0 MD ASONE INGREDI 8-17 Anderso 00:00: n 00 DEXAMETH DRUG Active Swelling 2022-0 MD ASONE INGREDI 8-17 Anderso 00:00: n 00 DEXAMETH DRUG Active Swelling 2022-0 MD ASONE INGREDI 8-17 Anderso 00:00: n 00 DEXAMETH DRUG Active Swelling 2022-0 MD ASONE INGREDI 8-17 Anderso 00:00: n 00 DEXAMETH DRUG Active Swelling 2022-0 MD ASONE INGREDI 8-17 Anderso 00:00: n 00 DEXAMETH DRUG Active Swelling 2022-0 MD ASONE INGREDI 8-17 Anderso 00:00: n 00 DEXAMETH DRUG Active Swelling 2022-0 MD ASONE INGREDI 8-17 Anderso 00:00: n 00 DEXAMETH DRUG Active Swelling 2022-0 MD ASONE INGREDI 8-17 Anderso 00:00: n 00 DEXAMETH DRUG Active Swelling 2022-0 MD ASONE INGREDI 8-17 Anderso 00:00: n 00 DEXAMETH DRUG Active Swelling 2022-0 MD ASONE INGREDI 8-17 Anderso 00:00: n 00 DEXAMETH DRUG Active Swelling 2022-0 MD ASONE INGREDI 8-17 Anderso 00:00: n 00 DEXAMETH DRUG Active Swelling 2022-0 MD ASONE INGREDI 8-17 Anderso 00:00: n 00 DEXAMETH DRUG Active Swelling 2022-0 MD ASONE INGREDI 8-17 Anderso 00:00: n 00 DEXAMETH DRUG Active Swelling 2022-0 MD ASONE INGREDI 8-17 Anderso 00:00: n 00 DEXAMETH DRUG Active Swelling 2022-0 MD ASONE INGREDI 8-17 Anderso 00:00: n 00 DEXAMETH DRUG Active Swelling 2022-0 MD ASONE INGREDI 8-17 Anderso 00:00: n 00 DEXAMETH DRUG Active Swelling 2022-0 MD ASONE INGREDI 8-17 Anderso 00:00: n 00 DEXAMETH DRUG Active Swelling 2022-0 MD ASONE INGREDI 8-17 Anderso 00:00: n 00 DEXAMETH DRUG Active Swelling 2022-0 MD ASONE INGREDI 8-17 Anderso 00:00: n 00 DEXAMETH DRUG Active Swelling 2022-0 MD ASONE INGREDI 8-17 Anderso 00:00: n 00 DEXAMETH DRUG Active Swelling 2022-0 MD ASONE INGREDI 8-17 Anderso 00:00: n 00 DEXAMETH DRUG Active Swelling 2022-0 MD ASONE INGREDI 8-17 Anderso 00:00: n 00 DEXAMETH DRUG Active Swelling 2022-0 MD ASONE INGREDI 8-17 Anderso 00:00: n 00 DEXAMETH DRUG Active Swelling 2022-0 MD ASONE INGREDI 8-17 Anderso 00:00: n 00 DEXAMETH DRUG Active Swelling 2022-0 MD ASONE INGREDI 8-17 Anderso 00:00: n 00 DEXAMETH DRUG Active Swelling 2022-0 MD ASONE INGREDI 8-17 Anderso 00:00: n 00 DEXAMETH DRUG Active Swelling 2022-0 MD ASONE INGREDI 8-17 Anderso 00:00: n 00 DEXAMETH DRUG Active Swelling 2022-0 MD ASONE INGREDI 8-17 Anderso 00:00: n 00 DEXAMETH DRUG Active Swelling 2022-0 MD ASONE INGREDI 8-17 Anderso 00:00: n 00 DEXAMETH DRUG Active Swelling 2022-0 MD ASONE INGREDI 8-17 Anderso 00:00: n 00 DEXAMETH DRUG Active Swelling 2022-0 MD ASONE INGREDI 8-17 Anderso 00:00: n 00 DEXAMETH DRUG Active Swelling 2022-0 MD ASONE INGREDI 8-17 Anderso 00:00: n 00 DEXAMETH DRUG Active Swelling 2022-0 MD ASONE INGREDI 8-17 Anderso 00:00: n 00 DEXAMETH DRUG Active Swelling 2022-0 MD ASONE INGREDI 8-17 Anderso 00:00: n 00 DEXAMETH DRUG Active Swelling 2022-0 MD ASONE INGREDI 8-17 Anderso 00:00: n 00 DEXAMETH DRUG Active Swelling 2022-0 MD ASONE INGREDI 8-17 Anderso 00:00: n 00 DEXAMETH DRUG Active Swelling 2022-0 MD ASONE INGREDI 8-17 Anderso 00:00: n 00 DEXAMETH DRUG Active Swelling 2022-0 MD ASONE INGREDI 8-17 Anderso 00:00: n 00 DEXAMETH DRUG Active Swelling 2022-0 MD ASONE INGREDI 8-17 Anderso 00:00: n 00 DEXAMETH DRUG Active Swelling 2022-0 MD ASONE INGREDI 8-17 Anderso 00:00: n 00 DEXAMETH DRUG Active Swelling 2022-0 MD ASONE INGREDI 8-17 Anderso 00:00: n 00 DEXAMETH DRUG Active Swelling 2022-0 MD ASONE INGREDI 8-17 Anderso 00:00: n 00 DEXAMETH DRUG Active Swelling 2022-0 MD ASONE INGREDI 8-17 Anderso 00:00: n 00 DEXAMETH DRUG Active Swelling 2022-0 MD ASONE INGREDI 8-17 Anderso 00:00: n 00 DEXAMETH DRUG Active Swelling 2022-0 MD ASONE INGREDI 8-17 Anderso 00:00: n 00 DEXAMETH DRUG Active Swelling 2022-0 MD ASONE INGREDI 8-17 Anderso 00:00: n 00 DEXAMETH DRUG Active Swelling 2022-0 MD ASONE INGREDI 8-17 Anderso 00:00: n 00 DEXAMETH DRUG Active Swelling 2022-0 MD ASONE INGREDI 8-17 Anderso 00:00: n 00 DEXAMETH DRUG Active Swelling 2022-0 MD ASONE INGREDI 8-17 Anderso 00:00: n 00 DEXAMETH DRUG Active Swelling 2022-0 MD ASONE INGREDI 8-17 Anderso 00:00: n 00 DEXAMETH DRUG Active Swelling 2022-0 MD ASONE INGREDI 8-17 Anderso 00:00: n 00 DEXAMETH DRUG Active Swelling 2022-0 MD ASONE INGREDI 8-17 Anderso 00:00: n 00 DEXAMETH DRUG Active Swelling 2022-0 MD ASONE INGREDI 8-17 Anderso 00:00: n 00 DEXAMETH DRUG Active Swelling 2022-0 MD ASONE INGREDI 8-17 Anderso 00:00: n 00 DEXAMETH DRUG Active Swelling 2022-0 MD ASONE INGREDI 8-17 Anderso 00:00: n 00 DEXAMETH DRUG Active Swelling 2022-0 MD ASONE INGREDI 8-17 Anderso 00:00: n 00 DEXAMETH DRUG Active Swelling 2022-0 MD ASONE INGREDI 8-17 Anderso 00:00: n 00 DEXAMETH DRUG Active Swelling 2022-0 MD ASONE INGREDI 8-17 Anderso 00:00: n 00 DEXAMETH DRUG Active Swelling 2022-0 MD ASONE INGREDI 8-17 Anderso 00:00: n 00 DEXAMETH DRUG Active Swelling 2022-0 MD ASONE INGREDI 8-17 Anderso 00:00: n 00 DEXAMETH DRUG Active Swelling 2022-0 MD ASONE INGREDI 8-17 Anderso 00:00: n 00 DEXAMETH DRUG Active Swelling 2022-0 MD ASONE INGREDI 8-17 Anderso 00:00: n 00 DEXAMETH DRUG Active Swelling 2022-0 MD ASONE INGREDI 8-17 Anderso 00:00: n 00 DEXAMETH DRUG Active Swelling 2022-0 MD ASONE INGREDI 8-17 Anderso 00:00: n 00 DEXAMETH DRUG Active Swelling 2022-0 MD ASONE INGREDI 8-17 Anderso 00:00: n 00 DEXAMETH DRUG Active Swelling 2022-0 MD ASONE INGREDI 8-17 Anderso 00:00: n 00 DEXAMETH DRUG Active Swelling 2022-0 MD ASONE INGREDI 8-17 Anderso 00:00: n 00 DEXAMETH DRUG Active Swelling 2022-0 MD ASONE INGREDI 8-17 Anderso 00:00: n 00 DEXAMETH DRUG Active Swelling 2022-0 MD ASONE INGREDI 8-17 Anderso 00:00: n 00 DEXAMETH DRUG Active Swelling 2022-0 MD ASONE INGREDI 8-17 Anderso 00:00: n 00 DEXAMETH DRUG Active Swelling 2022-0 MD ASONE INGREDI 8-17 Anderso 00:00: n 00 DEXAMETH DRUG Active Swelling 2022-0 MD ASONE INGREDI 8-17 Anderso 00:00: n 00 DEXAMETH DRUG Active Swelling 2022-0 MD ASONE INGREDI 8-17 Anderso 00:00: n 00 DEXAMETH DRUG Active Swelling 2022-0 MD ASONE INGREDI 8-17 Anderso 00:00: n 00 DEXAMETH DRUG Active Swelling 2022-0 MD ASONE INGREDI 8-17 Anderso 00:00: n 00 DEXAMETH DRUG Active Swelling 2022-0 MD ASONE INGREDI 8-17 Anderso 00:00: n 00 DEXAMETH DRUG Active Swelling 2022-0 MD ASONE INGREDI 8-17 Anderso 00:00: n 00 DEXAMETH DRUG Active Swelling 2022-0 MD ASONE INGREDI 8-17 Anderso 00:00: n 00 DEXAMETH DRUG Active Swelling 2022-0 MD ASONE INGREDI 8-17 Anderso 00:00: n 00 DEXAMETH DRUG Active Swelling 2022-0 MD ASONE INGREDI 8-17 Anderso 00:00: n 00 DEXAMETH DRUG Active Swelling 2022-0 MD ASONE INGREDI 8-17 Anderso 00:00: n 00 DEXAMETH DRUG Active Swelling 2022-0 MD ASONE INGREDI 8-17 Anderso 00:00: n 00 DEXAMETH DRUG Active Swelling 2022-0 MD ASONE INGREDI 8-17 Anderso 00:00: n 00 DEXAMETH DRUG Active Swelling 2022-0 MD ASONE INGREDI 8-17 Anderso 00:00: n 00 DEXAMETH DRUG Active Swelling 2022-0 MD ASONE INGREDI 8-17 Anderso 00:00: n 00 DEXAMETH DRUG Active Swelling 2022-0 MD ASONE INGREDI 8-17 Anderso 00:00: n 00 DEXAMETH DRUG Active Swelling 2022-0 MD ASONE INGREDI 8-17 Anderso 00:00: n 00 DEXAMETH DRUG Active Swelling 2022-0 MD ASONE INGREDI 8-17 Anderso 00:00: n 00 DEXAMETH DRUG Active Swelling 2022-0 MD ASONE INGREDI 8-17 Anderso 00:00: n 00 DEXAMETH DRUG Active Swelling 2022-0 MD ASONE INGREDI 8-17 Anderso 00:00: n 00 DEXAMETH DRUG Active Swelling 2022-0 MD ASONE INGREDI 8-17 Anderso 00:00: n 00 DEXAMETH DRUG Active Swelling 2022-0 MD ASONE INGREDI 8-17 Anderso 00:00: n 00 DEXAMETH DRUG Active Swelling 2022-0 MD ASONE INGREDI 8-17 Anderso 00:00: n 00 DEXAMETH DRUG Active Swelling 2022-0 MD ASONE INGREDI 8-17 Anderso 00:00: n 00 DEXAMETH DRUG Active Swelling 2022-0 MD ASONE INGREDI 8-17 Anderso 00:00: n 00 DEXAMETH DRUG Active Swelling 2022-0 MD ASONE INGREDI 8-17 Anderso 00:00: n 00 DEXAMETH DRUG Active Swelling 2022-0 MD ASONE INGREDI 8-17 Anderso 00:00: n 00 DEXAMETH DRUG Active Swelling 2022-0 MD ASONE INGREDI 8-17 Anderso 00:00: n 00 DEXAMETH DRUG Active Swelling 2022-0 MD ASONE INGREDI 8-17 Anderso 00:00: n 00 DEXAMETH DRUG Active Swelling 2022-0 MD ASONE INGREDI 8-17 Anderso 00:00: n 00 DEXAMETH DRUG Active Swelling 2022-0 MD ASONE INGREDI 8-17 Anderso 00:00: n 00 DEXAMETH DRUG Active Swelling 2022-0 MD ASONE INGREDI 8-17 Anderso 00:00: n 00 DEXAMETH DRUG Active Swelling 2022-0 MD ASONE INGREDI 8-17 Anderso 00:00: n 00 DEXAMETH DRUG Active Swelling 2022-0 MD ASONE INGREDI 8-17 Anderso 00:00: n 00 DEXAMETH DRUG Active Swelling 2022-0 MD ASONE INGREDI 8-17 Anderso 00:00: n 00 DEXAMETH DRUG Active Swelling 2022-0 MD ASONE INGREDI 8-17 Anderso 00:00: n 00 DEXAMETH DRUG Active Swelling 2022-0 MD ASONE INGREDI 8-17 Anderso 00:00: n 00 DEXAMETH DRUG Active Swelling 2022-0 MD ASONE INGREDI 8-17 Anderso 00:00: n 00 DEXAMETH DRUG Active Swelling 2022-0 MD ASONE INGREDI 8-17 Anderso 00:00: n 00 DEXAMETH DRUG Active Swelling 2022-0 MD ASONE INGREDI 8-17 Anderso 00:00: n 00 DEXAMETH DRUG Active Swelling 2022-0 MD ASONE INGREDI 8-17 Anderso 00:00: n 00 DEXAMETH DRUG Active Swelling 2022-0 MD ASONE INGREDI 8-17 Anderso 00:00: n 00 DEXAMETH DRUG Active Swelling 2022-0 MD ASONE INGREDI 8-17 Anderso 00:00: n 00 DEXAMETH DRUG Active Swelling 2022-0 MD ASONE INGREDI 8-17 Anderso 00:00: n 00 DEXAMETH DRUG Active Swelling 2022-0 MD ASONE INGREDI 8-17 Anderso 00:00: n 00 DEXAMETH DRUG Active Swelling 2022-0 MD ASONE INGREDI 8-17 Anderso 00:00: n 00 DEXAMETH DRUG Active Swelling 2022-0 MD ASONE INGREDI 8-17 Anderso 00:00: n 00 DEXAMETH DRUG Active Swelling 2022-0 MD ASONE INGREDI 8-17 Anderso 00:00: n 00 DEXAMETH DRUG Active Swelling 2022-0 MD ASONE INGREDI 8-17 Anderso 00:00: n 00 DEXAMETH DRUG Active Swelling 2022-0 MD ASONE INGREDI 8-17 Anderso 00:00: n 00 DEXAMETH DRUG Active Swelling 2022-0 MD ASONE INGREDI 8-17 Anderso 00:00: n 00 DEXAMETH DRUG Active Swelling 2022-0 MD ASONE INGREDI 8-17 Anderso 00:00: n 00 DEXAMETH DRUG Active Swelling 2022-0 MD ASONE INGREDI 8-17 Anderso 00:00: n 00 DEXAMETH DRUG Active Swelling 2022-0 MD ASONE INGREDI 8-17 Anderso 00:00: n 00 DEXAMETH DRUG Active Swelling 2022-0 MD ASONE INGREDI 8-17 Anderso 00:00: n 00 DEXAMETH DRUG Active Swelling 2022-0 MD ASONE INGREDI 8-17 Anderso 00:00: n 00 DEXAMETH DRUG Active Swelling 2022-0 MD ASONE INGREDI 8-17 Anderso 00:00: n 00 DEXAMETH DRUG Active Swelling 2022-0 MD ASONE INGREDI 8-17 Anderso 00:00: n 00 DEXAMETH DRUG Active Swelling 2022-0 MD ASONE INGREDI 8-17 Anderso 00:00: n 00 DEXAMETH DRUG Active Swelling 2022-0 MD ASONE INGREDI 8-17 Anderso 00:00: n 00 DEXAMETH DRUG Active Swelling 2022-0 MD ASONE INGREDI 8-17 Anderso 00:00: n 00 DEXAMETH DRUG Active Swelling 2022-0 MD ASONE INGREDI 8-17 Anderso 00:00: n 00 DEXAMETH DRUG Active Swelling 2022-0 MD ASONE INGREDI 8-17 Anderso 00:00: n 00 DEXAMETH DRUG Active Swelling 2022-0 MD ASONE INGREDI 8-17 Anderso 00:00: n 00 DEXAMETH DRUG Active Swelling 2022-0 MD ASONE INGREDI 8-17 Anderso 00:00: n 00 DEXAMETH DRUG Active Swelling 2022-0 MD ASONE INGREDI 8-17 Anderso 00:00: n 00 DEXAMETH DRUG Active Swelling 2022-0 MD ASONE INGREDI 8-17 Anderso 00:00: n 00 DEXAMETH DRUG Active Swelling 2022-0 MD ASONE INGREDI 8-17 Anderso 00:00: n 00 DEXAMETH DRUG Active Swelling 2022-0 MD ASONE INGREDI 8-17 Anderso 00:00: n 00 DEXAMETH DRUG Active Swelling 2022-0 MD ASONE INGREDI 8-17 Anderso 00:00: n 00 DEXAMETH DRUG Active Swelling 2022-0 MD ASONE INGREDI 8-17 Anderso 00:00: n 00 DEXAMETH DRUG Active Swelling 2022-0 MD ASONE INGREDI 8-17 Anderso 00:00: n 00 DEXAMETH DRUG Active Swelling 2022-0 MD ASONE INGREDI 8-17 Anderso 00:00: n 00 DEXAMETH DRUG Active Swelling 2022-0 MD ASONE INGREDI 8-17 Anderso 00:00: n 00 DEXAMETH DRUG Active Swelling 2022-0 MD ASONE INGREDI 8-17 Anderso 00:00: n 00 DEXAMETH DRUG Active Swelling 2022-0 MD ASONE INGREDI 8-17 Anderso 00:00: n 00 DEXAMETH DRUG Active Swelling 2022-0 MD ASONE INGREDI 8-17 Anderso 00:00: n 00 DEXAMETH DRUG Active Swelling 2022-0 MD ASONE INGREDI 8-17 Anderso 00:00: n 00 DEXAMETH DRUG Active Swelling 2022-0 MD ASONE INGREDI 8-17 Anderso 00:00: n 00 DEXAMETH DRUG Active Swelling 2022-0 MD ASONE INGREDI 8-17 Anderso 00:00: n 00 DEXAMETH DRUG Active Swelling 2022-0 MD ASONE INGREDI 8-17 Anderso 00:00: n 00 DEXAMETH DRUG Active Swelling 2022-0 MD ASONE INGREDI 8-17 Anderso 00:00: n 00 DEXAMETH DRUG Active Swelling 2022-0 MD ASONE INGREDI 8-17 Anderso 00:00: n 00 DEXAMETH DRUG Active Swelling 2022-0 MD ASONE INGREDI 8-17 Anderso 00:00: n 00 DEXAMETH DRUG Active Swelling 2022-0 MD ASONE INGREDI 8-17 Anderso 00:00: n 00 DEXAMETH DRUG Active Swelling 2022-0 MD ASONE INGREDI 8-17 Anderso 00:00: n 00 DEXAMETH DRUG Active Swelling 2022-0 MD ASONE INGREDI 8-17 Anderso 00:00: n 00 DEXAMETH DRUG Active Swelling 2022-0 MD ASONE INGREDI 8-17 Anderso 00:00: n 00 DEXAMETH DRUG Active Swelling 2022-0 MD ASONE INGREDI 8-17 Anderso 00:00: n 00 DEXAMETH DRUG Active Swelling 2022-0 MD ASONE INGREDI 8-17 Anderso 00:00: n 00 DEXAMETH DRUG Active Swelling 2022-0 MD ASONE INGREDI 8-17 Anderso 00:00: n 00 DEXAMETH DRUG Active Swelling 2022-0 MD ASONE INGREDI 8-17 Anderso 00:00: n 00 DEXAMETH DRUG Active Swelling 2022-0 MD ASONE INGREDI 8-17 Anderso 00:00: n 00 DEXAMETH DRUG Active Swelling 2022-0 MD ASONE INGREDI 8-17 Anderso 00:00: n 00 DEXAMETH DRUG Active Swelling 2022-0 MD ASONE INGREDI 8-17 Anderso 00:00: n 00 DEXAMETH DRUG Active Swelling 2022-0 MD ASONE INGREDI 8-17 Anderso 00:00: n 00 DEXAMETH DRUG Active Swelling 2022-0 MD ASONE INGREDI 8-17 Anderso 00:00: n 00 DEXAMETH DRUG Active Swelling 2022-0 MD ASONE INGREDI 8-17 Anderso 00:00: n 00 DEXAMETH DRUG Active Swelling 2022-0 MD ASONE INGREDI 8-17 Anderso 00:00: n 00 DEXAMETH DRUG Active Swelling 2022-0 MD ASONE INGREDI 8-17 Anderso 00:00: n 00 DEXAMETH DRUG Active Swelling 2022-0 MD ASONE INGREDI 8-17 Anderso 00:00: n 00 DEXAMETH DRUG Active Swelling 2022-0 MD ASONE INGREDI 8-17 Anderso 00:00: n 00 DEXAMETH DRUG Active Swelling 2022-0 MD ASONE INGREDI 8-17 Anderso 00:00: n 00 DEXAMETH DRUG Active Swelling 2022-0 MD ASONE INGREDI 8-17 Anderso 00:00: n 00 DEXAMETH DRUG Active Swelling 2022-0 MD ASONE INGREDI 8-17 Anderso 00:00: n 00 DEXAMETH DRUG Active Swelling 2022-0 MD ASONE INGREDI 8-17 Anderso 00:00: n 00 DEXAMETH DRUG Active Swelling 2022-0 MD ASONE INGREDI 8-17 Anderso 00:00: n 00 DEXAMETH DRUG Active Swelling 2022-0 MD ASONE INGREDI 8-17 Anderso 00:00: n 00 DEXAMETH DRUG Active Swelling 2022-0 MD ASONE INGREDI 8-17 Anderso 00:00: n 00 DEXAMETH DRUG Active Swelling 2022-0 MD ASONE INGREDI 8-17 Anderso 00:00: n 00 DEXAMETH DRUG Active Swelling 2022-0 MD ASONE INGREDI 8-17 Anderso 00:00: n 00 DEXAMETH DRUG Active Swelling 2022-0 MD ASONE INGREDI 8-17 Anderso 00:00: n 00 DEXAMETH DRUG Active Swelling 2022-0 MD ASONE INGREDI 8-17 Anderso 00:00: n 00 DEXAMETH DRUG Active Swelling 2022-0 MD ASONE INGREDI 8-17 Anderso 00:00: n 00 DEXAMETH DRUG Active Swelling 2022-0 MD ASONE INGREDI 8-17 Anderso 00:00: n 00 DEXAMETH DRUG Active Swelling 2022-0 MD ASONE INGREDI 8-17 Anderso 00:00: n 00 DEXAMETH DRUG Active Swelling 2022-0 MD ASONE INGREDI 8-17 Anderso 00:00: n 00 DEXAMETH DRUG Active Swelling 2022-0 MD ASONE INGREDI 8-17 Anderso 00:00: n 00 DEXAMETH DRUG Active Swelling 2022-0 MD ASONE INGREDI 8-17 Anderso 00:00: n 00 DEXAMETH DRUG Active Swelling 2022-0 MD ASONE INGREDI 8-17 Anderso 00:00: n 00 DEXAMETH DRUG Active Swelling 2022-0 MD ASONE INGREDI 8-17 Anderso 00:00: n 00 DEXAMETH DRUG Active Swelling 2022-0 MD ASONE INGREDI 8-17 Anderso 00:00: n 00 DEXAMETH DRUG Active Swelling 2022-0 MD ASONE INGREDI 8-17 Anderso 00:00: n 00 DEXAMETH DRUG Active Swelling 2022-0 MD ASONE INGREDI 8-17 Anderso 00:00: n 00 Dexameth Drug Active Swelling 2022-0 [facility]ro[facility] asone Allergy 8-17 swelling ity of 00:00: [place] 00 MD [facility] CEPHALEX DRUG Active Swelling 2022-0 MD IN INGREDI 7-12 Anderso 00:00: n 00 CEPHALEX DRUG Active Swelling 2022-0 MD IN INGREDI 7-12 Anderso 00:00: n 00 CEPHALEX DRUG Active Swelling 2022-0 MD IN INGREDI 7-12 Anderso 00:00: n 00 CEPHALEX DRUG Active Swelling 2022-0 MD IN INGREDI 7-12 Anderso 00:00: n 00 CEPHALEX DRUG Active Swelling 2022-0 MD IN INGREDI 7-12 Anderso 00:00: n 00 CEPHALEX DRUG Active Swelling 2022-0 MD IN INGREDI 7-12 Anderso 00:00: n 00 CEPHALEX DRUG Active Swelling 2022-0 MD IN INGREDI 7-12 Anderso 00:00: n 00 CEPHALEX DRUG Active Swelling 2022-0 MD IN INGREDI 7-12 Anderso 00:00: n 00 CEPHALEX DRUG Active Swelling 2022-0 MD IN INGREDI 7-12 Anderso 00:00: n 00 CEPHALEX DRUG Active Swelling 2022-0 MD IN INGREDI 7-12 Anderso 00:00: n 00 CEPHALEX DRUG Active Swelling 2022-0 MD IN INGREDI 7-12 Anderso 00:00: n 00 CEPHALEX DRUG Active Swelling 2022-0 MD IN INGREDI 7-12 Anderso 00:00: n 00 CEPHALEX DRUG Active Swelling 2022-0 MD IN INGREDI 7-12 Anderso 00:00: n 00 CEPHALEX DRUG Active Swelling 2022-0 MD IN INGREDI 7-12 Anderso 00:00: n 00 CEPHALEX DRUG Active Swelling 2022-0 MD IN INGREDI 7-12 Anderso 00:00: n 00 CEPHALEX DRUG Active Swelling 2022-0 MD IN INGREDI 7-12 Anderso 00:00: n 00 CEPHALEX DRUG Active Swelling 2022-0 MD IN INGREDI 7-12 Anderso 00:00: n 00 CEPHALEX DRUG Active Swelling 2022-0 MD IN INGREDI 7-12 Anderso 00:00: n 00 CEPHALEX DRUG Active Swelling 2022-0 MD IN INGREDI 7-12 Anderso 00:00: n 00 CEPHALEX DRUG Active Swelling 2022-0 MD IN INGREDI 7-12 Anderso 00:00: n 00 CEPHALEX DRUG Active Swelling 2022-0 MD IN INGREDI 7-12 Anderso 00:00: n 00 CEPHALEX DRUG Active Swelling 2022-0 MD IN INGREDI 7-12 Anderso 00:00: n 00 CEPHALEX DRUG Active Swelling 2022-0 MD IN INGREDI 7-12 Anderso 00:00: n 00 CEPHALEX DRUG Active Swelling 2022-0 MD IN INGREDI 7-12 Anderso 00:00: n 00 CEPHALEX DRUG Active Swelling 2022-0 MD IN INGREDI 7-12 Anderso 00:00: n 00 CEPHALEX DRUG Active Swelling 2022-0 MD IN INGREDI 7-12 Anderso 00:00: n 00 CEPHALEX DRUG Active Swelling 2022-0 MD IN INGREDI 7-12 Anderso 00:00: n 00 CEPHALEX DRUG Active Swelling 2022-0 MD IN INGREDI 7-12 Anderso 00:00: n 00 CEPHALEX DRUG Active Swelling 2022-0 MD IN INGREDI 7-12 Anderso 00:00: n 00 CEPHALEX DRUG Active Swelling 2022-0 MD IN INGREDI 7-12 Anderso 00:00: n 00 CEPHALEX DRUG Active Swelling 2022-0 MD IN INGREDI 7-12 Anderso 00:00: n 00 CEPHALEX DRUG Active Swelling 2022-0 MD IN INGREDI 7-12 Anderso 00:00: n 00 CEPHALEX DRUG Active Swelling 2022-0 MD IN INGREDI 7-12 Anderso 00:00: n 00 CEPHALEX DRUG Active Swelling 2022-0 MD IN INGREDI 7-12 Anderso 00:00: n 00 CEPHALEX DRUG Active Swelling 2022-0 MD IN INGREDI 7-12 Anderso 00:00: n 00 CEPHALEX DRUG Active Swelling 2022-0 MD IN INGREDI 7-12 Anderso 00:00: n 00 CEPHALEX DRUG Active Swelling 2022-0 MD IN INGREDI 7-12 Anderso 00:00: n 00 CEPHALEX DRUG Active Swelling 2022-0 MD IN INGREDI 7-12 Anderso 00:00: n 00 CEPHALEX DRUG Active Swelling 2022-0 MD IN INGREDI 7-12 Anderso 00:00: n 00 CEPHALEX DRUG Active Swelling 2022-0 MD IN INGREDI 7-12 Anderso 00:00: n 00 CEPHALEX DRUG Active Swelling 2022-0 MD IN INGREDI 7-12 Anderso 00:00: n 00 CEPHALEX DRUG Active Swelling 2022-0 MD IN INGREDI 7-12 Anderso 00:00: n 00 CEPHALEX DRUG Active Swelling 2022-0 MD IN INGREDI 7-12 Anderso 00:00: n 00 CEPHALEX DRUG Active Swelling 2022-0 MD IN INGREDI 7-12 Anderso 00:00: n 00 CEPHALEX DRUG Active Swelling 2022-0 MD IN INGREDI 7-12 Anderso 00:00: n 00 CEPHALEX DRUG Active Swelling 2022-0 MD IN INGREDI 7-12 Anderso 00:00: n 00 CEPHALEX DRUG Active Swelling 2022-0 MD IN INGREDI 7-12 Anderso 00:00: n 00 CEPHALEX DRUG Active Swelling 2022-0 MD IN INGREDI 7-12 Anderso 00:00: n 00 CEPHALEX DRUG Active Swelling 2022-0 MD IN INGREDI 7-12 Anderso 00:00: n 00 CEPHALEX DRUG Active Swelling 2022-0 MD IN INGREDI 7-12 Anderso 00:00: n 00 CEPHALEX DRUG Active Swelling 2022-0 MD IN INGREDI 7-12 Anderso 00:00: n 00 CEPHALEX DRUG Active Swelling 2022-0 MD IN INGREDI 7-12 Anderso 00:00: n 00 CEPHALEX DRUG Active Swelling 2022-0 MD IN INGREDI 7-12 Anderso 00:00: n 00 CEPHALEX DRUG Active Swelling 2022-0 MD IN INGREDI 7-12 Anderso 00:00: n 00 CEPHALEX DRUG Active Swelling 2022-0 MD IN INGREDI 7-12 Anderso 00:00: n 00 CEPHALEX DRUG Active Swelling 2022-0 MD IN INGREDI 7-12 Anderso 00:00: n 00 CEPHALEX DRUG Active Swelling 2022-0 MD IN INGREDI 7-12 Anderso 00:00: n 00 CEPHALEX DRUG Active Swelling 2022-0 MD IN INGREDI 7-12 Anderso 00:00: n 00 CEPHALEX DRUG Active Swelling 2022-0 MD IN INGREDI 7-12 Anderso 00:00: n 00 CEPHALEX DRUG Active Swelling 2022-0 MD IN INGREDI 7-12 Anderso 00:00: n 00 CEPHALEX DRUG Active Swelling 2022-0 MD IN INGREDI 7-12 Anderso 00:00: n 00 CEPHALEX DRUG Active Swelling 2022-0 MD IN INGREDI 7-12 Anderso 00:00: n 00 CEPHALEX DRUG Active Swelling 2022-0 MD IN INGREDI 7-12 Anderso 00:00: n 00 CEPHALEX DRUG Active Swelling 2022-0 MD IN INGREDI 7-12 Anderso 00:00: n 00 CEPHALEX DRUG Active Swelling 2022-0 MD IN INGREDI 7-12 Anderso 00:00: n 00 CEPHALEX DRUG Active Swelling 2022-0 MD IN INGREDI 7-12 Anderso 00:00: n 00 CEPHALEX DRUG Active Swelling 2022-0 MD IN INGREDI 7-12 Anderso 00:00: n 00 CEPHALEX DRUG Active Swelling 2022-0 MD IN INGREDI 7-12 Anderso 00:00: n 00 CEPHALEX DRUG Active Swelling 2022-0 MD IN INGREDI 7-12 Anderso 00:00: n 00 CEPHALEX DRUG Active Swelling 2022-0 MD IN INGREDI 7-12 Anderso 00:00: n 00 CEPHALEX DRUG Active Swelling 2022-0 MD IN INGREDI 7-12 Anderso 00:00: n 00 CEPHALEX DRUG Active Swelling 2022-0 MD IN INGREDI 7-12 Anderso 00:00: n 00 CEPHALEX DRUG Active Swelling 2022-0 MD IN INGREDI 7-12 Anderso 00:00: n 00 CEPHALEX DRUG Active Swelling 2022-0 MD IN INGREDI 7-12 Anderso 00:00: n 00 CEPHALEX DRUG Active Swelling 2022-0 MD IN INGREDI 7-12 Anderso 00:00: n 00 CEPHALEX DRUG Active Swelling 2022-0 MD IN INGREDI 7-12 Anderso 00:00: n 00 CEPHALEX DRUG Active Swelling 2022-0 MD IN INGREDI 7-12 Anderso 00:00: n 00 CEPHALEX DRUG Active Swelling 2022-0 MD IN INGREDI 7-12 Anderso 00:00: n 00 CEPHALEX DRUG Active Swelling 2022-0 MD IN INGREDI 7-12 Anderso 00:00: n 00 CEPHALEX DRUG Active Swelling 2022-0 MD IN INGREDI 7-12 Anderso 00:00: n 00 CEPHALEX DRUG Active Swelling 2022-0 MD IN INGREDI 7-12 Anderso 00:00: n 00 CEPHALEX DRUG Active Swelling 2022-0 MD IN INGREDI 7-12 Anderso 00:00: n 00 CEPHALEX DRUG Active Swelling 2022-0 MD IN INGREDI 7-12 Anderso 00:00: n 00 CEPHALEX DRUG Active Swelling 2022-0 MD IN INGREDI 7-12 Anderso 00:00: n 00 CEPHALEX DRUG Active Swelling 2022-0 MD IN INGREDI 7-12 Anderso 00:00: n 00 CEPHALEX DRUG Active Swelling 2022-0 MD IN INGREDI 7-12 Anderso 00:00: n 00 CEPHALEX DRUG Active Swelling 2022-0 MD IN INGREDI 7-12 Anderso 00:00: n 00 CEPHALEX DRUG Active Swelling 2022-0 MD IN INGREDI 7-12 Anderso 00:00: n 00 CEPHALEX DRUG Active Swelling 2022-0 MD IN INGREDI 7-12 Anderso 00:00: n 00 CEPHALEX DRUG Active Swelling 2022-0 MD IN INGREDI 7-12 Anderso 00:00: n 00 CEPHALEX DRUG Active Swelling 2022-0 MD IN INGREDI 7-12 Anderso 00:00: n 00 CEPHALEX DRUG Active Swelling 2022-0 MD IN INGREDI 7-12 Anderso 00:00: n 00 CEPHALEX DRUG Active Swelling 2022-0 MD IN INGREDI 7-12 Anderso 00:00: n 00 CEPHALEX DRUG Active Swelling 2022-0 MD IN INGREDI 7-12 Anderso 00:00: n 00 CEPHALEX DRUG Active Swelling 2022-0 MD IN INGREDI 7-12 Anderso 00:00: n 00 CEPHALEX DRUG Active Swelling 2022-0 MD IN INGREDI 7-12 Anderso 00:00: n 00 CEPHALEX DRUG Active Swelling 2022-0 MD IN INGREDI 7-12 Anderso 00:00: n 00 CEPHALEX DRUG Active Swelling 2022-0 MD IN INGREDI 7-12 Anderso 00:00: n 00 CEPHALEX DRUG Active Swelling 2022-0 MD IN INGREDI 7-12 Anderso 00:00: n 00 CEPHALEX DRUG Active Swelling 2022-0 MD IN INGREDI 7-12 Anderso 00:00: n 00 CEPHALEX DRUG Active Swelling 2022-0 MD IN INGREDI 7-12 Anderso 00:00: n 00 CEPHALEX DRUG Active Swelling 2022-0 MD IN INGREDI 7-12 Anderso 00:00: n 00 CEPHALEX DRUG Active Swelling 2022-0 MD IN INGREDI 7-12 Anderso 00:00: n 00 CEPHALEX DRUG Active Swelling 2022-0 MD IN INGREDI 7-12 Anderso 00:00: n 00 CEPHALEX DRUG Active Swelling 2022-0 MD IN INGREDI 7-12 Anderso 00:00: n 00 CEPHALEX DRUG Active Swelling 2022-0 MD IN INGREDI 7-12 Anderso 00:00: n 00 CEPHALEX DRUG Active Swelling 2022-0 MD IN INGREDI 7-12 Anderso 00:00: n 00 CEPHALEX DRUG Active Swelling 2022-0 MD IN INGREDI 7-12 Anderso 00:00: n 00 CEPHALEX DRUG Active Swelling 2022-0 MD IN INGREDI 7-12 Anderso 00:00: n 00 CEPHALEX DRUG Active Swelling 2022-0 MD IN INGREDI 7-12 Anderso 00:00: n 00 CEPHALEX DRUG Active Swelling 2022-0 MD IN INGREDI 7-12 Anderso 00:00: n 00 CEPHALEX DRUG Active Swelling 2022-0 MD IN INGREDI 7-12 Anderso 00:00: n 00 CEPHALEX DRUG Active Swelling 2022-0 MD IN INGREDI 7-12 Anderso 00:00: n 00 CEPHALEX DRUG Active Swelling 2022-0 MD IN INGREDI 7-12 Anderso 00:00: n 00 CEPHALEX DRUG Active Swelling 2022-0 MD IN INGREDI 7-12 Anderso 00:00: n 00 CEPHALEX DRUG Active Swelling 2022-0 MD IN INGREDI 7-12 Anderso 00:00: n 00 CEPHALEX DRUG Active Swelling 2022-0 MD IN INGREDI 7-12 Anderso 00:00: n 00 CEPHALEX DRUG Active Swelling 2022-0 MD IN INGREDI 7-12 Anderso 00:00: n 00 CEPHALEX DRUG Active Swelling 2022-0 MD IN INGREDI 7-12 Anderso 00:00: n 00 CEPHALEX DRUG Active Swelling 2022-0 MD IN INGREDI 7-12 Anderso 00:00: n 00 CEPHALEX DRUG Active Swelling 2022-0 MD IN INGREDI 7-12 Anderso 00:00: n 00 CEPHALEX DRUG Active Swelling 2022-0 MD IN INGREDI 7-12 Anderso 00:00: n 00 CEPHALEX DRUG Active Swelling 2022-0 MD IN INGREDI 7-12 Anderso 00:00: n 00 CEPHALEX DRUG Active Swelling 2022-0 MD IN INGREDI 7-12 Anderso 00:00: n 00 CEPHALEX DRUG Active Swelling 2022-0 MD IN INGREDI 7-12 Anderso 00:00: n 00 CEPHALEX DRUG Active Swelling 2022-0 MD IN INGREDI 7-12 Anderso 00:00: n 00 CEPHALEX DRUG Active Swelling 2022-0 MD IN INGREDI 7-12 Anderso 00:00: n 00 CEPHALEX DRUG Active Swelling 2022-0 MD IN INGREDI 7-12 Anderso 00:00: n 00 CEPHALEX DRUG Active Swelling 2022-0 MD IN INGREDI 7-12 Anderso 00:00: n 00 CEPHALEX DRUG Active Swelling 2022-0 MD IN INGREDI 7-12 Anderso 00:00: n 00 CEPHALEX DRUG Active Swelling 2022-0 MD IN INGREDI 7-12 Anderso 00:00: n 00 CEPHALEX DRUG Active Swelling 2022-0 MD IN INGREDI 7-12 Anderso 00:00: n 00 CEPHALEX DRUG Active Swelling 2022-0 MD IN INGREDI 7-12 Anderso 00:00: n 00 CEPHALEX DRUG Active Swelling 2022-0 MD IN INGREDI 7-12 Anderso 00:00: n 00 CEPHALEX DRUG Active Swelling 2022-0 MD IN INGREDI 7-12 Anderso 00:00: n 00 CEPHALEX DRUG Active Swelling 2022-0 MD IN INGREDI 7-12 Anderso 00:00: n 00 CEPHALEX DRUG Active Swelling 2022-0 MD IN INGREDI 7-12 Anderso 00:00: n 00 CEPHALEX DRUG Active Swelling 2022-0 MD IN INGREDI 7-12 Anderso 00:00: n 00 CEPHALEX DRUG Active Swelling 2022-0 MD IN INGREDI 7-12 Anderso 00:00: n 00 CEPHALEX DRUG Active Swelling 2022-0 MD IN INGREDI 7-12 Anderso 00:00: n 00 CEPHALEX DRUG Active Swelling 2022-0 MD IN INGREDI 7-12 Anderso 00:00: n 00 CEPHALEX DRUG Active Swelling 2022-0 MD IN INGREDI 7-12 Anderso 00:00: n 00 CEPHALEX DRUG Active Swelling 2022-0 MD IN INGREDI 7-12 Anderso 00:00: n 00 CEPHALEX DRUG Active Swelling 2022-0 MD IN INGREDI 7-12 Anderso 00:00: n 00 CEPHALEX DRUG Active Swelling 2022-0 MD IN INGREDI 7-12 Anderso 00:00: n 00 CEPHALEX DRUG Active Swelling 2022-0 MD IN INGREDI 7-12 Anderso 00:00: n 00 CEPHALEX DRUG Active Swelling 2022-0 MD IN INGREDI 7-12 Anderso 00:00: n 00 CEPHALEX DRUG Active Swelling 2022-0 MD IN INGREDI 7-12 Anderso 00:00: n 00 CEPHALEX DRUG Active Swelling 2022-0 MD IN INGREDI 7-12 Anderso 00:00: n 00 CEPHALEX DRUG Active Swelling 2022-0 MD IN INGREDI 7-12 Anderso 00:00: n 00 CEPHALEX DRUG Active Swelling 2022-0 MD IN INGREDI 7-12 Anderso 00:00: n 00 CEPHALEX DRUG Active Swelling 2022-0 MD IN INGREDI 7-12 Anderso 00:00: n 00 CEPHALEX DRUG Active Swelling 2022-0 MD IN INGREDI 7-12 Anderso 00:00: n 00 CEPHALEX DRUG Active Swelling 2022-0 MD IN INGREDI 7-12 Anderso 00:00: n 00 CEPHALEX DRUG Active Swelling 2022-0 MD IN INGREDI 7-12 Anderso 00:00: n 00 CEPHALEX DRUG Active Swelling 2022-0 MD IN INGREDI 7-12 Anderso 00:00: n 00 CEPHALEX DRUG Active Swelling 2022-0 MD IN INGREDI 7-12 Anderso 00:00: n 00 CEPHALEX DRUG Active Swelling 2022-0 MD IN INGREDI 7-12 Anderso 00:00: n 00 CEPHALEX DRUG Active Swelling 2022-0 MD IN INGREDI 7-12 Anderso 00:00: n 00 CEPHALEX DRUG Active Swelling 2022-0 MD IN INGREDI 7-12 Anderso 00:00: n 00 CEPHALEX DRUG Active Swelling 2022-0 MD IN INGREDI 7-12 Anderso 00:00: n 00 CEPHALEX DRUG Active Swelling 2022-0 MD IN INGREDI 7-12 Anderso 00:00: n 00 CEPHALEX DRUG Active Swelling 2022-0 MD IN INGREDI 7-12 Anderso 00:00: n 00 CEPHALEX DRUG Active Swelling 2022-0 MD IN INGREDI 7-12 Anderso 00:00: n 00 CEPHALEX DRUG Active Swelling 2022-0 MD IN INGREDI 7-12 Anderso 00:00: n 00 CEPHALEX DRUG Active Swelling 2022-0 MD IN INGREDI 7-12 Anderso 00:00: n 00 CEPHALEX DRUG Active Swelling 2022-0 MD IN INGREDI 7-12 Anderso 00:00: n 00 CEPHALEX DRUG Active Swelling 2022-0 MD IN INGREDI 7-12 Anderso 00:00: n 00 CEPHALEX DRUG Active Swelling 2022-0 MD IN INGREDI 7-12 Anderso 00:00: n 00 CEPHALEX DRUG Active Swelling 2022-0 MD IN INGREDI 7-12 Anderso 00:00: n 00 CEPHALEX DRUG Active Swelling 2022-0 MD IN INGREDI 7-12 Anderso 00:00: n 00 CEPHALEX DRUG Active Swelling 2022-0 MD IN INGREDI 7-12 Anderso 00:00: n 00 CEPHALEX DRUG Active Swelling 2022-0 MD IN INGREDI 7-12 Anderso 00:00: n 00 CEPHALEX DRUG Active Swelling 2022-0 MD IN INGREDI 7-12 Anderso 00:00: n 00 CEPHALEX DRUG Active Swelling 2022-0 MD IN INGREDI 7-12 Anderso 00:00: n 00 CEPHALEX DRUG Active Swelling 2022-0 MD IN INGREDI 7-12 Anderso 00:00: n 00 CEPHALEX DRUG Active Swelling 2022-0 MD IN INGREDI 7-12 Anderso 00:00: n 00 CEPHALEX DRUG Active Swelling 2022-0 MD IN INGREDI 7-12 Anderso 00:00: n 00 CEPHALEX DRUG Active Swelling 2022-0 MD IN INGREDI 7-12 Anderso 00:00: n 00 CEPHALEX DRUG Active Swelling 2022-0 MD IN INGREDI 7-12 Anderso 00:00: n 00 CEPHALEX DRUG Active Swelling 2022-0 MD IN INGREDI 7-12 Anderso 00:00: n 00 CEPHALEX DRUG Active Swelling 2022-0 MD IN INGREDI 7-12 Anderso 00:00: n 00 CEPHALEX DRUG Active Swelling 2022-0 MD IN INGREDI 7-12 Anderso 00:00: n 00 CEPHALEX DRUG Active Swelling 2022-0 MD IN INGREDI 7-12 Anderso 00:00: n 00 CEPHALEX DRUG Active Swelling 2022-0 MD IN INGREDI 7-12 Anderso 00:00: n 00 CEPHALEX DRUG Active Swelling 2022-0 MD IN INGREDI 7-12 Anderso 00:00: n 00 CEPHALEX DRUG Active Swelling 2022-0 MD IN INGREDI 7-12 Anderso 00:00: n 00 CEPHALEX DRUG Active Swelling 2022-0 MD IN INGREDI 7-12 Anderso 00:00: n 00 CEPHALEX DRUG Active Swelling 2022-0 MD IN INGREDI 7-12 Anderso 00:00: n 00 CEPHALEX DRUG Active Swelling 2022-0 MD IN INGREDI 7-12 Anderso 00:00: n 00 CEPHALEX DRUG Active Swelling 2022-0 MD IN INGREDI 7-12 Anderso 00:00: n 00 CEPHALEX DRUG Active Swelling 2022-0 MD IN INGREDI 7-12 Anderso 00:00: n 00 CEPHALEX DRUG Active Swelling 2022-0 MD IN INGREDI 7-12 Anderso 00:00: n 00 CEPHALEX DRUG Active Swelling 2022-0 MD IN INGREDI 7-12 Anderso 00:00: n 00 CEPHALEX DRUG Active Swelling 2022-0 MD IN INGREDI 7-12 Anderso 00:00: n 00 CEPHALEX DRUG Active Swelling 2022-0 MD IN INGREDI 7-12 Anderso 00:00: n 00 [facility]PHAL[facility] DRUG Active Swelling 2022-0 MD IN INGREDI 7-12 Anderso 00:00: n 00 CEPHALEX DRUG Active Swelling 2022-0 MD IN INGREDI 7-12 Anderso 00:00: n 00 CEPHALEX DRUG Active Swelling 2022-0 MD IN INGREDI 7-12 Anderso 00:00: n 00 CEPHALEX DRUG Active Swelling 2022-0 MD IN INGREDI 7-12 Anderso 00:00: n 00 CEPHALEX DRUG Active Swelling 2022-0 MD IN INGREDI 7-12 Anderso 00:00: n 00 CEPHALEX DRUG Active Swelling 2022-0 MD IN INGREDI 7-12 Anderso 00:00: n 00 CEPHALEX DRUG Active Swelling 2022-0 MD IN INGREDI 7-12 Anderso 00:00: n 00 CEPHALEX DRUG Active Swelling 2022-0 MD IN INGREDI 7-12 Anderso 00:00: n 00 CEPHALEX DRUG Active Swelling 2022-0 MD IN INGREDI 7-12 Anderso 00:00: n 00 CEPHALEX DRUG Active Swelling 2022-0 MD IN INGREDI 7-12 Anderso 00:00: n 00 CEPHALEX DRUG Active Swelling 2022-0 MD IN INGREDI 7-12 Anderso 00:00: n 00 CEPHALEX DRUG Active Swelling 2022-0 MD IN INGREDI 7-12 Anderso 00:00: n 00 CEPHALEX DRUG Active Swelling 2022-0 MD IN INGREDI 7-12 Anderso 00:00: n 00 CEPHALEX DRUG Active Swelling 2022-0 MD IN INGREDI 7-12 Anderso 00:00: n 00 CEPHALEX DRUG Active Swelling 2022-0 MD IN INGREDI 7-12 Anderso 00:00: n 00 CEPHALEX DRUG Active Swelling 2022-0 Univer s IN INGREDI 7-12 ity of 00:00: [place] [facility] Cephalex Propensi Active Swelling 2022-0 Univ ers in ty to 7-12 ity of adverse 00:00: [place] reaction 00 [facility] IODINE DRUG Active Anaphylaxis 2-0 Unive rs INGREDI 7- ity of 00:00: [place] [facility] SILICONE DRUG Active ITCHING 2-0 Univers INGREDI 7- ity of 00:00: [place] [facility] Silicone Propensi Active Itching 2-0 Unive rs ty to 7- ity of adverse 00:00: [place] reaction [facility] Iodine Propensi Active Anaphylaxis 2-0 Uni vers ty to 7 ity of adverse 00:00: [place] reaction [facility] Silicone Propensi Active Itching 2-0 Unive rs ty to - ity of adverse 00:00: [place] reaction [facility] SODIUM DRUG Active High Sob 2022-0 MD [facility] INGREDI 6-03 Anderso SULFATE 00:00: n 00 SODIUM DRUG Active High Sob 2022-0 MD [facility] INGREDI 6-03 Anderso SULFATE 00:00: n 00 SILICONE DRUG Active Itching 2022-0 MD INGREDI 6-03 Anderso 00:00: n 00 SODIUM DRUG Active High Sob 2022-0 MD [facility] INGREDI 6-03 Anderso SULFATE 00:00: n 00 SILICONE DRUG Active Itching 2022-0 MD INGREDI 6-03 Anderso 00:00: n 00 SODIUM DRUG Active High Sob 2022-0 MD [facility] INGREDI 6-03 Anderso SULFATE 00:00: n 00 SILICONE DRUG Active Itching 2022-0 MD INGREDI 6-03 Anderso 00:00: n 00 SODIUM DRUG Active High Sob 2022-0 MD [facility] INGREDI 6-03 Anderso SULFATE 00:00: n 00 SILICONE DRUG Active Itching 2022-0 MD INGREDI 6-03 Anderso 00:00: n 00 SODIUM DRUG Active High Sob 2022-0 MD [facility] INGREDI 6-03 Anderso SULFATE 00:00: n 00 SILICONE DRUG Active Itching 2022-0 MD INGREDI 6-03 Anderso 00:00: n 00 SILICONE DRUG Active Itching 2022-0 MD INGREDI 6-03 Anderso 00:00: n 00 SODIUM DRUG Active High Sob 2022-0 MD [facility] INGREDI 6-03 Anderso SULFATE 00:00: n 00 SILICONE DRUG Active Itching 2022-0 MD INGREDI 6-03 Anderso 00:00: n 00 SODIUM DRUG Active High Sob 2022-0 MD [facility] INGREDI 6-03 Anderso SULFATE 00:00: n 00 SILICONE DRUG Active Itching 2022-0 MD INGREDI 6-03 Anderso 00:00: n 00 SODIUM DRUG Active High Sob 2022-0 MD [facility] INGREDI 6-03 Anderso SULFATE 00:00: n 00 SILICONE DRUG Active Itching 2022-0 MD INGREDI 6-03 Anderso 00:00: n 00 SODIUM DRUG Active High Sob 2022-0 MD [facility] INGREDI 6-03 Anderso SULFATE 00:00: n 00 SILICONE DRUG Active Itching 2022-0 MD INGREDI 6-03 Anderso 00:00: n 00 SODIUM DRUG Active High Sob 2022-0 MD [facility] INGREDI 6-03 Anderso SULFATE 00:00: n 00 SILICONE DRUG Active Itching 2022-0 MD INGREDI 6-03 Anderso 00:00: n 00 SODIUM DRUG Active High Sob 2022-0 MD [facility] INGREDI 6-03 Anderso SULFATE 00:00: n 00 SILICONE DRUG Active Itching 2022-0 MD INGREDI 6-03 Anderso 00:00: n 00 SODIUM DRUG Active High Sob 2022-0 MD [facility] INGREDI 6-03 Anderso SULFATE 00:00: n 00 SODIUM DRUG Active High Sob 2022-0 MD [facility] INGREDI 6-03 Anderso SULFATE 00:00: n 00 SILICONE DRUG Active Itching 2022-0 MD INGREDI 6-03 Anderso 00:00: n 00 SODIUM DRUG Active High Sob 2022-0 MD [facility] INGREDI 6-03 Anderso SULFATE 00:00: n 00 SILICONE DRUG Active Itching 2022-0 MD INGREDI 6-03 Anderso 00:00: n 00 SODIUM DRUG Active High Sob 2022-0 MD [facility] INGREDI 6-03 Anderso SULFATE 00:00: n 00 SILICONE DRUG Active Itching 2022-0 MD INGREDI 6-03 Anderso 00:00: n 00 SODIUM DRUG Active High Sob 2022-0 MD [facility] INGREDI 6-03 Anderso SULFATE 00:00: n 00 SILICONE DRUG Active Itching 2022-0 MD INGREDI 6-03 Anderso 00:00: n 00 SILICONE DRUG Active Itching 2022-0 MD INGREDI 6-03 Anderso 00:00: n 00 SODIUM DRUG Active High Sob 2022-0 MD [facility] INGREDI 6-03 Anderso SULFATE 00:00: n 00 SILICONE DRUG Active Itching 2022-0 MD INGREDI 6-03 Anderso 00:00: n 00 SODIUM DRUG Active High Sob 2022-0 MD [facility] INGREDI 6-03 Anderso SULFATE 00:00: n 00 SILICONE DRUG Active Itching 2022-0 MD INGREDI 6-03 Anderso 00:00: n 00 SODIUM DRUG Active High Sob 2022-0 MD [facility] INGREDI 6-03 Anderso SULFATE 00:00: n 00 SILICONE DRUG Active Itching 2022-0 MD INGREDI 6-03 Anderso 00:00: n 00 SODIUM DRUG Active High Sob 2022-0 MD [facility] INGREDI 6-03 Anderso SULFATE 00:00: n 00 SILICONE DRUG Active Itching 2022-0 MD INGREDI 6-03 Anderso 00:00: n 00 SODIUM DRUG Active High Sob 2022-0 MD [facility] INGREDI 6-03 Anderso SULFATE 00:00: n 00 SILICONE DRUG Active Itching 2022-0 MD INGREDI 6-03 Anderso 00:00: n 00 SODIUM DRUG Active High Sob 2022-0 MD [facility] INGREDI 6-03 Anderso SULFATE 00:00: n 00 SILICONE DRUG Active Itching 2022-0 MD INGREDI 6-03 Anderso 00:00: n 00 SODIUM DRUG Active High Sob 2022-0 MD [facility] INGREDI 6-03 Anderso SULFATE 00:00: n 00 SODIUM DRUG Active High Sob 2022-0 MD [facility] INGREDI 6-03 Anderso SULFATE 00:00: n 00 SILICONE DRUG Active Itching 2022-0 MD INGREDI 6-03 Anderso 00:00: n 00 SODIUM DRUG Active High Sob 2022-0 MD [facility] INGREDI 6-03 Anderso SULFATE 00:00: n 00 SILICONE DRUG Active Itching 2022-0 MD INGREDI 6-03 Anderso 00:00: n 00 SODIUM DRUG Active High Sob 2022-0 MD [facility] INGREDI 6-03 Anderso SULFATE 00:00: n 00 SILICONE DRUG Active Itching 2022-0 MD INGREDI 6-03 Anderso 00:00: n 00 SODIUM DRUG Active High Sob 2022-0 MD [facility] INGREDI 6-03 Anderso SULFATE 00:00: n 00 SILICONE DRUG Active Itching 2022-0 MD INGREDI 6-03 Anderso 00:00: n 00 SILICONE DRUG Active Itching 2022-0 MD INGREDI 6-03 Anderso 00:00: n 00 SODIUM DRUG Active High Sob 2022-0 MD [facility] INGREDI 6-03 Anderso SULFATE 00:00: n 00 SILICONE DRUG Active Itching 2022-0 MD INGREDI 6-03 Anderso 00:00: n 00 SODIUM DRUG Active High Sob 2022-0 MD [facility] INGREDI 6-03 Anderso SULFATE 00:00: n 00 SILICONE DRUG Active Itching 2022-0 MD INGREDI 6-03 Anderso 00:00: n 00 SODIUM DRUG Active High Sob 2022-0 MD [facility] INGREDI 6-03 Anderso SULFATE 00:00: n 00 SILICONE DRUG Active Itching 2022-0 MD INGREDI 6-03 Anderso 00:00: n 00 SODIUM DRUG Active High Sob 2022-0 MD [facility] INGREDI 6-03 Anderso SULFATE 00:00: n 00 SILICONE DRUG Active Itching 2022-0 MD INGREDI 6-03 Anderso 00:00: n 00 SODIUM DRUG Active High Sob 2022-0 MD [facility] INGREDI 6-03 Anderso SULFATE 00:00: n 00 SILICONE DRUG Active Itching 2022-0 MD INGREDI 6-03 Anderso 00:00: n 00 SODIUM DRUG Active High Sob 2022-0 MD [facility] INGREDI 6-03 Anderso SULFATE 00:00: n 00 SODIUM DRUG Active High Sob 2022-0 MD [facility] INGREDI 6-03 Anderso SULFATE 00:00: n 00 SILICONE DRUG Active Itching 2022-0 MD INGREDI 6-03 Anderso 00:00: n 00 SODIUM DRUG Active High Sob 2022-0 MD [facility] INGREDI 6-03 Anderso SULFATE 00:00: n 00 SILICONE DRUG Active Itching 2022-0 MD INGREDI 6-03 Anderso 00:00: n 00 SODIUM DRUG Active High Sob 2022-0 MD [facility] INGREDI 6-03 Anderso SULFATE 00:00: n 00 SILICONE DRUG Active Itching 2022-0 MD INGREDI 6-03 Anderso 00:00: n 00 SODIUM DRUG Active High Sob 2022-0 MD [facility] INGREDI 6-03 Anderso SULFATE 00:00: n 00 SILICONE DRUG Active Itching 2022-0 MD INGREDI 6-03 Anderso 00:00: n 00 SODIUM DRUG Active High Sob 2022-0 MD [facility] INGREDI 6-03 Anderso SULFATE 00:00: n 00 SILICONE DRUG Active Itching 2022-0 MD INGREDI 6-03 Anderso 00:00: n 00 SILICONE DRUG Active Itching 2022-0 MD INGREDI 6-03 Anderso 00:00: n 00 SODIUM DRUG Active High Sob 2022-0 MD [facility] INGREDI 6-03 Anderso SULFATE 00:00: n 00 SILICONE DRUG Active Itching 2022-0 MD INGREDI 6-03 Anderso 00:00: n 00 SODIUM DRUG Active High Sob 2022-0 MD [facility] INGREDI 6-03 Anderso SULFATE 00:00: n 00 SILICONE DRUG Active Itching 2022-0 MD INGREDI 6-03 Anderso 00:00: n 00 SODIUM DRUG Active High Sob 2022-0 MD [facility] INGREDI 6-03 Anderso SULFATE 00:00: n 00 SILICONE DRUG Active Itching 2022-0 MD INGREDI 6-03 Anderso 00:00: n 00 SODIUM DRUG Active High Sob 2022-0 MD [facility] INGREDI 6-03 Anderso SULFATE 00:00: n 00 SILICONE DRUG Active Itching 2022-0 MD INGREDI 6-03 Anderso 00:00: n 00 SODIUM DRUG Active High Sob 2022-0 MD [facility] INGREDI 6-03 Anderso SULFATE 00:00: n 00 SILICONE DRUG Active Itching 2022-0 MD INGREDI 6-03 Anderso 00:00: n 00 SODIUM DRUG Active High Sob 2022-0 MD [facility] INGREDI 6-03 Anderso SULFATE 00:00: n 00 SODIUM DRUG Active High Sob 2022-0 MD [facility] INGREDI 6-03 Anderso SULFATE 00:00: n 00 SILICONE DRUG Active Itching 2022-0 MD INGREDI 6-03 Anderso 00:00: n 00 SODIUM DRUG Active High Sob 2022-0 MD [facility] INGREDI 6-03 Anderso SULFATE 00:00: n 00 SILICONE DRUG Active Itching 2022-0 MD INGREDI 6-03 Anderso 00:00: n 00 SODIUM DRUG Active High Sob 2022-0 MD [facility] INGREDI 6-03 Anderso SULFATE 00:00: n 00 SILICONE DRUG Active Itching 2022-0 MD INGREDI 6-03 Anderso 00:00: n 00 SODIUM DRUG Active High Sob 2022-0 MD [facility] INGREDI 6-03 Anderso SULFATE 00:00: n 00 SILICONE DRUG Active Itching 2022-0 MD INGREDI 6-03 Anderso 00:00: n 00 SILICONE DRUG Active Itching 2022-0 MD INGREDI 6-03 Anderso 00:00: n 00 SODIUM DRUG Active High Sob 2022-0 MD [facility] INGREDI 6-03 Anderso SULFATE 00:00: n 00 SILICONE DRUG Active Itching 2022-0 MD INGREDI 6-03 Anderso 00:00: n 00 SODIUM DRUG Active High Sob 2022-0 MD [facility] INGREDI 6-03 Anderso SULFATE 00:00: n 00 SILICONE DRUG Active Itching 2022-0 MD INGREDI 6-03 Anderso 00:00: n 00 SODIUM DRUG Active High Sob 2022-0 MD [facility] INGREDI 6-03 Anderso SULFATE 00:00: n 00 SILICONE DRUG Active Itching 2022-0 MD INGREDI 6-03 Anderso 00:00: n 00 SODIUM DRUG Active High Sob 2022-0 MD [facility] INGREDI 6-03 Anderso SULFATE 00:00: n 00 SILICONE DRUG Active Itching 2022-0 MD INGREDI 6-03 Anderso 00:00: n 00 SODIUM DRUG Active High Sob 2022-0 MD [facility] INGREDI 6-03 Anderso SULFATE 00:00: n 00 SODIUM DRUG Active High Sob 2022-0 MD [facility] INGREDI 6-03 Anderso SULFATE 00:00: n 00 SILICONE DRUG Active Itching 2022-0 MD INGREDI 6-03 Anderso 00:00: n 00 SODIUM DRUG Active High Sob 2022-0 MD [facility] INGREDI 6-03 Anderso SULFATE 00:00: n 00 SILICONE DRUG Active Itching 2022-0 MD INGREDI 6-03 Anderso 00:00: n 00 SODIUM DRUG Active High Sob 2022-0 MD [facility] INGREDI 6-03 Anderso SULFATE 00:00: n 00 SODIUM DRUG Active High Sob 2022-0 MD [facility] INGREDI 6-03 Anderso SULFATE 00:00: n 00 SILICONE DRUG Active Itching 2022-0 MD INGREDI 6-03 Anderso 00:00: n 00 SODIUM DRUG Active High Sob 2022-0 MD [facility] INGREDI 6-03 Anderso SULFATE 00:00: n 00 SILICONE DRUG Active Itching 2022-0 MD INGREDI 6-03 Anderso 00:00: n 00 SODIUM DRUG Active High Sob 2022-0 MD [facility] INGREDI 6-03 Anderso SULFATE 00:00: n 00 SILICONE DRUG Active Itching 2022-0 MD INGREDI 6-03 Anderso 00:00: n 00 SODIUM DRUG Active High Sob 2022-0 MD [facility] INGREDI 6-03 Anderso SULFATE 00:00: n 00 SILICONE DRUG Active Itching 2022-0 MD INGREDI 6-03 Anderso 00:00: n 00 SILICONE DRUG Active Itching 2022-0 MD INGREDI 6-03 Anderso 00:00: n 00 SODIUM DRUG Active High Sob 2022-0 MD [facility] INGREDI 6-03 Anderso SULFATE 00:00: n 00 SILICONE DRUG Active Itching 2022-0 MD INGREDI 6-03 Anderso 00:00: n 00 SODIUM DRUG Active High Sob 2022-0 MD [facility] INGREDI 6-03 Anderso SULFATE 00:00: n 00 SILICONE DRUG Active Itching 2022-0 MD INGREDI 6-03 Anderso 00:00: n 00 SODIUM DRUG Active High Sob 2022-0 MD [facility] INGREDI 6-03 Anderso SULFATE 00:00: n 00 SILICONE DRUG Active Itching 2022-0 MD INGREDI 6-03 Anderso 00:00: n 00 SODIUM DRUG Active High Sob 2022-0 MD [facility] INGREDI 6-03 Anderso SULFATE 00:00: n 00 SILICONE DRUG Active Itching 2022-0 MD INGREDI 6-03 Anderso 00:00: n 00 SODIUM DRUG Active High Sob 2022-0 MD [facility] INGREDI 6-03 Anderso SULFATE 00:00: n 00 SILICONE DRUG Active Itching 2022-0 MD INGREDI 6-03 Anderso 00:00: n 00 SODIUM DRUG Active High Sob 2022-0 MD [facility] INGREDI 6-03 Anderso SULFATE 00:00: n 00 SILICONE DRUG Active Itching 2022-0 MD INGREDI 6-03 Anderso 00:00: n 00 SODIUM DRUG Active High Sob 2022-0 MD [facility] INGREDI 6-03 Anderso SULFATE 00:00: n 00 SODIUM DRUG Active High Sob 2022-0 MD [facility] INGREDI 6-03 Anderso SULFATE 00:00: n 00 SILICONE DRUG Active Itching 2022-0 MD INGREDI 6-03 Anderso 00:00: n 00 SODIUM DRUG Active High Sob 2022-0 MD [facility] INGREDI 6-03 Anderso SULFATE 00:00: n 00 SILICONE DRUG Active Itching 2022-0 MD INGREDI 6-03 Anderso 00:00: n 00 SODIUM DRUG Active High Sob 2022-0 MD [facility] INGREDI 6-03 Anderso SULFATE 00:00: n 00 SILICONE DRUG Active Itching 2022-0 MD INGREDI 6-03 Anderso 00:00: n 00 SODIUM DRUG Active High Sob 2022-0 MD [facility] INGREDI 6-03 Anderso SULFATE 00:00: n 00 SILICONE DRUG Active Itching 2022-0 MD INGREDI 6-03 Anderso 00:00: n 00 SILICONE DRUG Active Itching 2022-0 MD INGREDI 6-03 Anderso 00:00: n 00 SODIUM DRUG Active High Sob 2022-0 MD [facility] INGREDI 6-03 Anderso SULFATE 00:00: n 00 SILICONE DRUG Active Itching 2022-0 MD INGREDI 6-03 Anderso 00:00: n 00 SODIUM DRUG Active High Sob 2022-0 MD [facility] INGREDI 6-03 Anderso SULFATE 00:00: n 00 SILICONE DRUG Active Itching 2022-0 MD INGREDI 6-03 Anderso 00:00: n 00 SODIUM DRUG Active High Sob 2022-0 MD [facility] INGREDI 6-03 Anderso SULFATE 00:00: n 00 SILICONE DRUG Active Itching 2022-0 MD INGREDI 6-03 Anderso 00:00: n 00 SODIUM DRUG Active High Sob 2022-0 MD [facility] INGREDI 6-03 Anderso SULFATE 00:00: n 00 SILICONE DRUG Active Itching 2022-0 MD INGREDI 6-03 Anderso 00:00: n 00 SODIUM DRUG Active High Sob 2022-0 MD [facility] INGREDI 6-03 Anderso SULFATE 00:00: n 00 SILICONE DRUG Active Itching 2022-0 MD INGREDI 6-03 Anderso 00:00: n 00 SODIUM DRUG Active High Sob 2022-0 MD [facility] INGREDI 6-03 Anderso SULFATE 00:00: n 00 SILICONE DRUG Active Itching 2022-0 MD INGREDI 6-03 Anderso 00:00: n 00 SODIUM DRUG Active High Sob 2022-0 MD [facility] INGREDI 6-03 Anderso SULFATE 00:00: n 00 SODIUM DRUG Active High Sob 2022-0 MD [facility] INGREDI 6-03 Anderso SULFATE 00:00: n 00 SILICONE DRUG Active Itching 2022-0 MD INGREDI 6-03 Anderso 00:00: n 00 SODIUM DRUG Active High Sob 2022-0 MD [facility] INGREDI 6-03 Anderso SULFATE 00:00: n 00 SILICONE DRUG Active Itching 2022-0 MD INGREDI 6-03 Anderso 00:00: n 00 SODIUM DRUG Active High Sob 2022-0 MD [facility] INGREDI 6-03 Anderso SULFATE 00:00: n 00 SILICONE DRUG Active Itching 2022-0 MD INGREDI 6-03 Anderso 00:00: n 00 SODIUM DRUG Active High Sob 2022-0 MD [facility] INGREDI 6-03 Anderso SULFATE 00:00: n 00 SILICONE DRUG Active Itching 2022-0 MD INGREDI 6-03 Anderso 00:00: n 00 SILICONE DRUG Active Itching 2022-0 MD INGREDI 6-03 Anderso 00:00: n 00 SODIUM DRUG Active High Sob 2022-0 MD [facility] INGREDI 6-03 Anderso SULFATE 00:00: n 00 SILICONE DRUG Active Itching 2022-0 MD INGREDI 6-03 Anderso 00:00: n 00 SODIUM DRUG Active High Sob 2022-0 MD [facility] INGREDI 6-03 Anderso SULFATE 00:00: n 00 SILICONE DRUG Active Itching 2022-0 MD INGREDI 6-03 Anderso 00:00: n 00 SODIUM DRUG Active High Sob 2022-0 MD [facility] INGREDI 6-03 Anderso SULFATE 00:00: n 00 SILICONE DRUG Active Itching 2022-0 MD INGREDI 6-03 Anderso 00:00: n 00 SODIUM DRUG Active High Sob 2022-0 MD [facility] INGREDI 6-03 Anderso SULFATE 00:00: n 00 SILICONE DRUG Active Itching 2022-0 MD INGREDI 6-03 Anderso 00:00: n 00 SODIUM DRUG Active High Sob 2022-0 MD [facility] INGREDI 6-03 Anderso SULFATE 00:00: n 00 SILICONE DRUG Active Itching 2022-0 MD INGREDI 6-03 Anderso 00:00: n 00 SODIUM DRUG Active High Sob 2022-0 MD [facility] INGREDI 6-03 Anderso SULFATE 00:00: n 00 SODIUM DRUG Active High Sob 2022-0 MD [facility] INGREDI 6-03 Anderso SULFATE 00:00: n 00 SILICONE DRUG Active Itching 2022-0 MD INGREDI 6-03 Anderso 00:00: n 00 SODIUM DRUG Active High Sob 2022-0 MD [facility] INGREDI 6-03 Anderso SULFATE 00:00: n 00 SILICONE DRUG Active Itching 2022-0 MD INGREDI 6-03 Anderso 00:00: n 00 SODIUM DRUG Active High Sob 2022-0 MD [facility] INGREDI 6-03 Anderso SULFATE 00:00: n 00 SILICONE DRUG Active Itching 2022-0 MD INGREDI 6-03 Anderso 00:00: n 00 SODIUM DRUG Active High Sob 2022-0 MD [facility] INGREDI 6-03 Anderso SULFATE 00:00: n 00 SILICONE DRUG Active Itching 2022-0 MD INGREDI 6-03 Anderso 00:00: n 00 SODIUM DRUG Active High Sob 2022-0 MD [facility] INGREDI 6-03 Anderso SULFATE 00:00: n 00 SILICONE DRUG Active Itching 2022-0 MD INGREDI 6-03 Anderso 00:00: n 00 SILICONE DRUG Active Itching 2022-0 MD INGREDI 6-03 Anderso 00:00: n 00 SODIUM DRUG Active High Sob 2022-0 MD [facility] INGREDI 6-03 Anderso SULFATE 00:00: n 00 SILICONE DRUG Active Itching 2022-0 MD INGREDI 6-03 Anderso 00:00: n 00 SODIUM DRUG Active High Sob 2022-0 MD [facility] INGREDI 6-03 Anderso SULFATE 00:00: n 00 SILICONE DRUG Active Itching 2022-0 MD INGREDI 6-03 Anderso 00:00: n 00 SODIUM DRUG Active High Sob 2022-0 MD [facility] INGREDI 6-03 Anderso SULFATE 00:00: n 00 SILICONE DRUG Active Itching 2022-0 MD INGREDI 6-03 Anderso 00:00: n 00 SODIUM DRUG Active High Sob 2022-0 MD [facility] INGREDI 6-03 Anderso SULFATE 00:00: n 00 SILICONE DRUG Active Itching 2022-0 MD INGREDI 6-03 Anderso 00:00: n 00 SODIUM DRUG Active High Sob 2022-0 MD [facility] INGREDI 6-03 Anderso SULFATE 00:00: n 00 SILICONE DRUG Active Itching 2022-0 MD INGREDI 6-03 Anderso 00:00: n 00 SODIUM DRUG Active High Sob 2022-0 MD [facility] INGREDI 6-03 Anderso SULFATE 00:00: n 00 SODIUM DRUG Active High Sob 2022-0 MD [facility] INGREDI 6-03 Anderso SULFATE 00:00: n 00 SILICONE DRUG Active Itching 2022-0 MD INGREDI 6-03 Anderso 00:00: n 00 SODIUM DRUG Active High Sob 2022-0 MD [facility] INGREDI 6-03 Anderso SULFATE 00:00: n 00 SILICONE DRUG Active Itching 2022-0 MD INGREDI 6-03 Anderso 00:00: n 00 SODIUM DRUG Active High Sob 2022-0 MD [facility] INGREDI 6-03 Anderso SULFATE 00:00: n 00 SILICONE DRUG Active Itching 2022-0 MD INGREDI 6-03 Anderso 00:00: n 00 SODIUM DRUG Active High Sob 2022-0 MD [facility] INGREDI 6-03 Anderso SULFATE 00:00: n 00 SILICONE DRUG Active Itching 2022-0 MD INGREDI 6-03 Anderso 00:00: n 00 SILICONE DRUG Active Itching 2022-0 MD INGREDI 6-03 Anderso 00:00: n 00 SODIUM DRUG Active High Sob 2022-0 MD [facility] INGREDI 6-03 Anderso SULFATE 00:00: n 00 SILICONE DRUG Active Itching 2022-0 MD INGREDI 6-03 Anderso 00:00: n 00 SODIUM DRUG Active High Sob 2022-0 MD [facility] INGREDI 6-03 Anderso SULFATE 00:00: n 00 SILICONE DRUG Active Itching 2022-0 MD INGREDI 6-03 Anderso 00:00: n 00 SODIUM DRUG Active High Sob 2022-0 MD [facility] INGREDI 6-03 Anderso SULFATE 00:00: n 00 SILICONE DRUG Active Itching 2022-0 MD INGREDI 6-03 Anderso 00:00: n 00 SODIUM DRUG Active High Sob 2022-0 MD [facility] INGREDI 6-03 Anderso SULFATE 00:00: n 00 SILICONE DRUG Active Itching 2022-0 MD INGREDI 6-03 Anderso 00:00: n 00 SODIUM DRUG Active High Sob 2022-0 MD [facility] INGREDI 6-03 Anderso SULFATE 00:00: n 00 SILICONE DRUG Active Itching 2022-0 MD INGREDI 6-03 Anderso 00:00: n 00 SODIUM DRUG Active High Sob 2022-0 MD [facility] INGREDI 6-03 Anderso SULFATE 00:00: n 00 SODIUM DRUG Active High Sob 2022-0 MD [facility] INGREDI 6-03 Anderso SULFATE 00:00: n 00 SILICONE DRUG Active Itching 2022-0 MD INGREDI 6-03 Anderso 00:00: n 00 SODIUM DRUG Active High Sob 2022-0 MD [facility] INGREDI 6-03 Anderso SULFATE 00:00: n 00 SILICONE DRUG Active Itching 2022-0 MD INGREDI 6-03 Anderso 00:00: n 00 SHELLFIS Drug Active High Anaphylaxis 2022-0 MD H Class 6-03 Anderso CONTAINI 00:00: n NG 00 PRODUCTS SODIUM DRUG Active High Sob 2022-0 MD [facility] INGREDI 6-03 Anderso SULFATE 00:00: n 00 SILICONE DRUG Active Itching 2022-0 MD INGREDI 6-03 Anderso 00:00: n 00 SODIUM DRUG Active High Sob 2022-0 MD [facility] INGREDI 6-03 Anderso SULFATE 00:00: n 00 SILICONE DRUG Active Itching 2022-0 MD INGREDI 6-03 Anderso 00:00: n 00 SILICONE DRUG Active Itching 2022-0 MD INGREDI 6-03 Anderso 00:00: n 00 SODIUM DRUG Active High Sob 2022-0 MD [facility] INGREDI 6-03 Anderso SULFATE 00:00: n 00 SILICONE DRUG Active Itching 2022-0 MD INGREDI 6-03 Anderso 00:00: n 00 SODIUM DRUG Active High Sob 2022-0 MD [facility] INGREDI 6-03 Anderso SULFATE 00:00: n 00 SILICONE DRUG Active Itching 2022-0 MD INGREDI 6-03 Anderso 00:00: n 00 SILICONE DRUG Active Itching 2022-0 MD INGREDI 6-03 Anderso 00:00: n 00 SODIUM DRUG Active High Sob 2022-0 MD LAURYL INGREDI 6-03 Anderso SULFATE 00:00: n 00 SILICONE DRUG Active Itching 2022-0 MD INGREDI 6-03 Anderso 00:00: n 00 SODIUM DRUG Active High Sob 2022-0 MD LAURYL INGREDI 6-03 Anderso SULFATE 00:00: n 00 SILICONE DRUG Active Itching 2022-0 MD INGREDI 6-03 Anderso 00:00: n 00 SODIUM DRUG Active High Sob 2022-0 MD LAURYL INGREDI 6-03 Anderso SULFATE 00:00: n 00 SILICONE DRUG Active Itching 2022-0 MD INGREDI 6-03 Anderso 00:00: n 00 SODIUM DRUG Active High Sob 2022-0 MD LAURYL INGREDI 6-03 Anderso SULFATE 00:00: n 00 SODIUM DRUG Active High Sob 2022-0 MD LAURYL INGREDI 6-03 Anderso SULFATE 00:00: n 00 SILICONE DRUG Active Itching 2022-0 MD INGREDI 6-03 Anderso 00:00: n 00 SODIUM DRUG Active High Sob 2022-0 MD LAURYL INGREDI 6-03 Anderso SULFATE 00:00: n 00 SILICONE DRUG Active Itching 2022-0 MD INGREDI 6-03 Anderso 00:00: n 00 SODIUM DRUG Active High Sob 2022-0 MD LAURYL INGREDI 6-03 Anderso SULFATE 00:00: n 00 SILICONE DRUG Active Itching 2022-0 MD INGREDI 6-03 Anderso 00:00: n 00 SODIUM DRUG Active High Sob 2022-0 MD LAURYL INGREDI 6-03 Anderso SULFATE 00:00: n 00 SILICONE DRUG Active Itching 2022-0 MD INGREDI 6-03 Anderso 00:00: n 00 SODIUM DRUG Active High Sob 2022-0 MD LAURYL INGREDI 6-03 Anderso SULFATE 00:00: n 00 SILICONE DRUG Active Itching 2022-0 MD INGREDI 6-03 Anderso 00:00: n 00 SILICONE DRUG Active Itching 2022-0 MD INGREDI 6-03 Anderso 00:00: n 00 SODIUM DRUG Active High Sob 2022-0 MD LAURYL INGREDI 6-03 Anderso SULFATE 00:00: n 00 SILICONE DRUG Active Itching 2022-0 MD INGREDI 6-03 Anderso 00:00: n 00 SODIUM DRUG Active High Sob 2022-0 MD LAURYL INGREDI 6-03 Anderso SULFATE 00:00: n 00 SILICONE DRUG Active Itching 2022-0 MD INGREDI 6-03 Anderso 00:00: n 00 SODIUM DRUG Active High Sob 2022-0 MD LAURYL INGREDI 6-03 Anderso SULFATE 00:00: n 00 SILICONE DRUG Active Itching 2022-0 MD INGREDI 6-03 Anderso 00:00: n 00 SODIUM DRUG Active High Sob 2022-0 MD LAURYL INGREDI 6-03 Anderso SULFATE 00:00: n 00 SILICONE DRUG Active Itching 2022-0 MD INGREDI 6-03 Anderso 00:00: n 00 SODIUM DRUG Active High Sob 2022-0 MD LAURYL INGREDI 6-03 Anderso SULFATE 00:00: n 00 SILICONE DRUG Active Itching 2022-0 MD INGREDI 6-03 Anderso 00:00: n 00 SODIUM DRUG Active High Sob 2022-0 MD LAURYL INGREDI 6-03 Anderso SULFATE 00:00: n 00 SODIUM DRUG Active High Sob 2022-0 MD LAURYL INGREDI 6-03 Anderso SULFATE 00:00: n 00 SILICONE DRUG Active Itching 2022-0 MD INGREDI 6-03 Anderso 00:00: n 00 SODIUM DRUG Active High Sob 2022-0 MD LAURYL INGREDI 6-03 Anderso SULFATE 00:00: n 00 SILICONE DRUG Active Itching 2022-0 MD INGREDI 6-03 Anderso 00:00: n 00 SODIUM DRUG Active High Sob 2022-0 MD LAURYL INGREDI 6-03 Anderso SULFATE 00:00: n 00 SILICONE DRUG Active Itching 2022-0 MD INGREDI 6-03 Anderso 00:00: n 00 SODIUM DRUG Active High Sob 2022-0 MD LAURYL INGREDI 6-03 Anderso SULFATE 00:00: n 00 SILICONE DRUG Active Itching 2022-0 MD INGREDI 6-03 Anderso 00:00: n 00 SILICONE DRUG Active Itching 2022-0 MD INGREDI 6-03 Anderso 00:00: n 00 SODIUM DRUG Active High Sob 2022-0 MD LAURYL INGREDI 6-03 Anderso SULFATE 00:00: n 00 SILICONE DRUG Active Itching 2022-0 MD INGREDI 6-03 Anderso 00:00: n 00 SODIUM DRUG Active High Sob 2022-0 MD LAURYL INGREDI 6-03 Anderso SULFATE 00:00: n 00 SILICONE DRUG Active Itching 2022-0 MD INGREDI 6-03 Anderso 00:00: n 00 SODIUM DRUG Active High Sob 2022-0 MD LAURYL INGREDI 6-03 Anderso SULFATE 00:00: n 00 SILICONE DRUG Active Itching 2022-0 MD INGREDI 6-03 Anderso 00:00: n 00 SODIUM DRUG Active High Sob 2022-0 MD LAURYL INGREDI 6-03 Anderso SULFATE 00:00: n 00 SILICONE DRUG Active Itching 2022-0 MD INGREDI 6-03 Anderso 00:00: n 00 SODIUM DRUG Active High Sob 2022-0 MD LAURYL INGREDI 6-03 Anderso SULFATE 00:00: n 00 SILICONE DRUG Active Itching 2022-0 MD INGREDI 6-03 Anderso 00:00: n 00 SODIUM DRUG Active High Sob 2022-0 MD LAURYL INGREDI 6-03 Anderso SULFATE 00:00: n 00 SODIUM DRUG Active High Sob 2022-0 MD LAURYL INGREDI 6-03 Anderso SULFATE 00:00: n 00 SILICONE DRUG Active Itching 2022-0 MD INGREDI 6-03 Anderso 00:00: n 00 SODIUM DRUG Active High Sob 2022-0 MD LAURYL INGREDI 6-03 Anderso SULFATE 00:00: n 00 SILICONE DRUG Active Itching 2022-0 MD INGREDI 6-03 Anderso 00:00: n 00 SODIUM DRUG Active High Sob 2022-0 MD LAURYL INGREDI 6-03 Anderso SULFATE 00:00: n 00 SILICONE DRUG Active Itching 2022-0 MD INGREDI 6-03 Anderso 00:00: n 00 SODIUM DRUG Active High Sob 2022-0 MD LAURYL INGREDI 6-03 Anderso SULFATE 00:00: n 00 SILICONE DRUG Active Itching 2022-0 MD INGREDI 6-03 Anderso 00:00: n 00 SILICONE DRUG Active Itching 2022-0 MD INGREDI 6-03 Anderso 00:00: n 00 SODIUM DRUG Active High Sob 2022-0 MD LAURYL INGREDI 6-03 Anderso SULFATE 00:00: n 00 SILICONE DRUG Active Itching 2022-0 MD INGREDI 6-03 Anderso 00:00: n 00 SODIUM DRUG Active High Sob 2022-0 MD LAURYL INGREDI 6-03 Anderso SULFATE 00:00: n 00 SILICONE DRUG Active Itching 2022-0 MD INGREDI 6-03 Anderso 00:00: n 00 SODIUM DRUG Active High Sob 2022-0 MD LAURYL INGREDI 6-03 Anderso SULFATE 00:00: n 00 SILICONE DRUG Active Itching 2022-0 MD INGREDI 6-03 Anderso 00:00: n 00 SODIUM DRUG Active High Sob 2022-0 MD LAURYL INGREDI 6-03 Anderso SULFATE 00:00: n 00 SILICONE DRUG Active Itching 2022-0 MD INGREDI 6-03 Anderso 00:00: n 00 SODIUM DRUG Active High Sob 2022-0 MD LAURYL INGREDI 6-03 Anderso SULFATE 00:00: n 00 SILICONE DRUG Active Itching 2022-0 MD INGREDI 6-03 Anderso 00:00: n 00 SODIUM DRUG Active High Sob 2022-0 MD LAURYL INGREDI 6-03 Anderso SULFATE 00:00: n 00 SODIUM DRUG Active High Sob 2022-0 MD LAURYL INGREDI 6-03 Anderso SULFATE 00:00: n 00 SILICONE DRUG Active Itching 2022-0 MD INGREDI 6-03 Anderso 00:00: n 00 SODIUM DRUG Active High Sob 2022-0 MD LAURYL INGREDI 6-03 Anderso SULFATE 00:00: n 00 SILICONE DRUG Active Itching 2022-0 MD INGREDI 6-03 Anderso 00:00: n 00 SODIUM DRUG Active High Sob 2022-0 MD LAURYL INGREDI 6-03 Anderso SULFATE 00:00: n 00 SILICONE DRUG Active Itching 2022-0 MD INGREDI 6-03 Anderso 00:00: n 00 SODIUM DRUG Active High Sob 2022-0 MD LAURYL INGREDI 6-03 Anderso SULFATE 00:00: n 00 SILICONE DRUG Active Itching 2022-0 MD INGREDI 6-03 Anderso 00:00: n 00 SODIUM DRUG Active High Sob 2022-0 MD LAURYL INGREDI 6-03 Anderso SULFATE 00:00: n 00 SILICONE DRUG Active Itching 2022-0 MD INGREDI 6-03 Anderso 00:00: n 00 SILICONE DRUG Active Itching 2022-0 MD INGREDI 6-03 Anderso 00:00: n 00 SODIUM DRUG Active High Sob 2022-0 MD LAURYL INGREDI 6-03 Anderso SULFATE 00:00: n 00 SILICONE DRUG Active Itching 2022-0 MD INGREDI 6-03 Anderso 00:00: n 00 SODIUM DRUG Active High Sob 2022-0 MD LAURYL INGREDI 6-03 Anderso SULFATE 00:00: n 00 SILICONE DRUG Active Itching 2022-0 MD INGREDI 6-03 Anderso 00:00: n 00 SODIUM DRUG Active High Sob 2022-0 MD LAURYL INGREDI 6-03 Anderso SULFATE 00:00: n 00 SILICONE DRUG Active Itching 2022-0 MD INGREDI 6-03 Anderso 00:00: n 00 SODIUM DRUG Active High Sob 2022-0 MD LAURYL INGREDI 6-03 Anderso SULFATE 00:00: n 00 SILICONE DRUG Active Itching 2022-0 MD INGREDI 6-03 Anderso 00:00: n 00 SODIUM DRUG Active High Sob 2022-0 MD LAURYL INGREDI 6-03 Anderso SULFATE 00:00: n 00 SILICONE DRUG Active Itching 2022-0 MD INGREDI 6-03 Anderso 00:00: n 00 SODIUM DRUG Active High Sob 2022-0 MD LAURYL INGREDI 6-03 Anderso SULFATE 00:00: n 00 SODIUM DRUG Active High Sob 2022-0 MD LAURYL INGREDI 6-03 Anderso SULFATE 00:00: n 00 SILICONE DRUG Active Itching 2022-0 MD INGREDI 6-03 Anderso 00:00: n 00 SODIUM DRUG Active High Sob 2022-0 MD LAURYL INGREDI 6-03 Anderso SULFATE 00:00: n 00 SILICONE DRUG Active Itching 2022-0 MD INGREDI 6-03 Anderso 00:00: n 00 SODIUM DRUG Active High Sob 2022-0 MD LAURYL INGREDI 6-03 Anderso SULFATE 00:00: n 00 SILICONE DRUG Active Itching 2022-0 MD INGREDI 6-03 Anderso 00:00: n 00 SODIUM DRUG Active High Sob 2022-0 MD LAURYL INGREDI 6-03 Anderso SULFATE 00:00: n 00 SILICONE DRUG Active Itching 2022-0 MD INGREDI 6-03 Anderso 00:00: n 00 SILICONE DRUG Active Itching 2022-0 MD INGREDI 6-03 Anderso 00:00: n 00 SODIUM DRUG Active High Sob 2022-0 MD LAURYL INGREDI 6-03 Anderso SULFATE 00:00: n 00 SILICONE DRUG Active Itching 2022-0 MD INGREDI 6-03 Anderso 00:00: n 00 SODIUM DRUG Active High Sob 2022-0 MD LAURYL INGREDI 6-03 Anderso SULFATE 00:00: n 00 SILICONE DRUG Active Itching 2022-0 MD INGREDI 6-03 Anderso 00:00: n 00 SODIUM DRUG Active High Sob 2022-0 MD LAURYL INGREDI 6-03 Anderso SULFATE 00:00: n 00 SILICONE DRUG Active Itching 2022-0 MD INGREDI 6-03 Anderso 00:00: n 00 SODIUM DRUG Active High Sob 2022-0 MD LAURYL INGREDI 6-03 Anderso SULFATE 00:00: n 00 SILICONE DRUG Active Itching 2022-0 MD INGREDI 6-03 Anderso 00:00: n 00 SODIUM DRUG Active High Sob 2022-0 MD LAURYL INGREDI 6-03 Anderso SULFATE 00:00: n 00 SILICONE DRUG Active Itching 2022-0 MD INGREDI 6-03 Anderso 00:00: n 00 SODIUM DRUG Active High Sob 2022-0 MD LAURYL INGREDI 6-03 Anderso SULFATE 00:00: n 00 SODIUM DRUG Active High Sob 2022-0 MD LAURYL INGREDI 6-03 Anderso SULFATE 00:00: n 00 SILICONE DRUG Active Itching 2022-0 MD INGREDI 6-03 Anderso 00:00: n 00 SODIUM DRUG Active High Sob 2022-0 MD LAURYL INGREDI 6-03 Anderso SULFATE 00:00: n 00 SILICONE DRUG Active Itching 2022-0 MD INGREDI 6-03 Anderso 00:00: n 00 SODIUM DRUG Active High Sob 2022-0 MD LAURYL INGREDI 6-03 Anderso SULFATE 00:00: n 00 SILICONE DRUG Active Itching 2022-0 MD INGREDI 6-03 Anderso 00:00: n 00 SODIUM DRUG Active High Sob 2022-0 MD LAURYL INGREDI 6-03 Anderso SULFATE 00:00: n 00 SILICONE DRUG Active Itching 2022-0 MD INGREDI 6-03 Anderso 00:00: n 00 SILICONE DRUG Active Itching 2022-0 MD INGREDI 6-03 Anderso 00:00: n 00 SODIUM DRUG Active High Sob 2022-0 MD LAURYL INGREDI 6-03 Anderso SULFATE 00:00: n 00 SILICONE DRUG Active Itching 2022-0 MD INGREDI 6-03 Anderso 00:00: n 00 SODIUM DRUG Active High Sob 2022-0 MD LAURYL INGREDI 6-03 Anderso SULFATE 00:00: n 00 SILICONE DRUG Active Itching 2022-0 MD INGREDI 6-03 Anderso 00:00: n 00 SODIUM DRUG Active High Sob 2022-0 MD LAURYL INGREDI 6-03 Anderso SULFATE 00:00: n 00 SILICONE DRUG Active Itching 2022-0 MD INGREDI 6-03 Anderso 00:00: n 00 SODIUM DRUG Active High Sob 2022-0 MD LAURYL INGREDI 6-03 Anderso SULFATE 00:00: n 00 SILICONE DRUG Active Itching 2022-0 MD INGREDI 6-03 Anderso 00:00: n 00 SODIUM DRUG Active High Sob 2022-0 MD LAURYL INGREDI 6-03 Anderso SULFATE 00:00: n 00 SILICONE DRUG Active Itching 2022-0 MD INGREDI 6-03 Anderso 00:00: n 00 SODIUM DRUG Active High Sob 2022-0 MD LAURYL INGREDI 6-03 Anderso SULFATE 00:00: n 00 SODIUM DRUG Active High Sob 2022-0 MD LAURYL INGREDI 6-03 Anderso SULFATE 00:00: n 00 SODIUM DRUG Active High Sob 2022-0 MD LAURYL INGREDI 6-03 Anderso SULFATE 00:00: n 00 SILICONE DRUG Active Itching 2022-0 MD INGREDI 6-03 Anderso 00:00: n 00 SODIUM DRUG Active High Sob 2022-0 MD LAURYL INGREDI 6-03 Anderso SULFATE 00:00: n 00 SILICONE DRUG Active Itching 2022-0 MD INGREDI 6-03 Anderso 00:00: n 00 SODIUM DRUG Active High Sob 2022-0 MD LAURYL INGREDI 6-03 Anderso SULFATE 00:00: n 00 SILICONE DRUG Active Itching 2022-0 MD INGREDI 6-03 Anderso 00:00: n 00 SODIUM DRUG Active High Sob 2022-0 MD LAURYL INGREDI 6-03 Anderso SULFATE 00:00: n 00 SILICONE DRUG Active Itching 2022-0 MD INGREDI 6-03 Anderso 00:00: n 00 SILICONE DRUG Active Itching 2022-0 MD INGREDI 6-03 Anderso 00:00: n 00 SODIUM DRUG Active High Sob 2022-0 MD LAURYL INGREDI 6-03 Anderso SULFATE 00:00: n 00 SILICONE DRUG Active Itching 2022-0 MD INGREDI 6-03 Anderso 00:00: n 00 SODIUM DRUG Active High Sob 2022-0 MD LAURYL INGREDI 6-03 Anderso SULFATE 00:00: n 00 SILICONE DRUG Active Itching 2022-0 MD INGREDI 6-03 Anderso 00:00: n 00 SODIUM DRUG Active High Sob 2022-0 MD LAURYL INGREDI 6-03 Anderso SULFATE 00:00: n 00 SILICONE DRUG Active Itching 2022-0 MD INGREDI 6-03 Anderso 00:00: n 00 SODIUM DRUG Active High Sob 2022-0 MD LAURYL INGREDI 6-03 Anderso SULFATE 00:00: n 00 SILICONE DRUG Active Itching 2022-0 MD INGREDI 6-03 Anderso 00:00: n 00 SODIUM DRUG Active High Sob 2022-0 MD LAURYL INGREDI 6-03 Anderso SULFATE 00:00: n 00 SILICONE DRUG Active Itching 2022-0 MD INGREDI 6-03 Anderso 00:00: n 00 SODIUM DRUG Active High Sob 2022-0 MD LAURYL INGREDI 6-03 Anderso SULFATE 00:00: n 00 SILICONE DRUG Active Itching 2022-0 MD INGREDI 6-03 Anderso 00:00: n 00 SODIUM DRUG Active High Sob 2022-0 MD LAURYL INGREDI 6-03 Anderso SULFATE 00:00: n 00 SILICONE DRUG Active Itching 2022-0 MD INGREDI 6-03 Anderso 00:00: n 00 SODIUM DRUG Active High Sob 2022-0 MD LAURYL INGREDI 6-03 Anderso SULFATE 00:00: n 00 SILICONE DRUG Active Itching 2022-0 MD INGREDI 6-03 Anderso 00:00: n 00 SILICONE DRUG Active Itching 2022-0 MD INGREDI 6-03 Anderso 00:00: n 00 SODIUM DRUG Active High Sob 2022-0 MD LAURYL INGREDI 6-03 Anderso SULFATE 00:00: n 00 SILICONE DRUG Active Itching 2022-0 MD INGREDI 6-03 Anderso 00:00: n 00 SODIUM DRUG Active High Sob 2022-0 MD LAURYL INGREDI 6-03 Anderso SULFATE 00:00: n 00 SILICONE DRUG Active Itching 2022-0 MD INGREDI 6-03 Anderso 00:00: n 00 SODIUM DRUG Active High Sob 2022-0 MD LAURYL INGREDI 6-03 Anderso SULFATE 00:00: n 00 SILICONE DRUG Active Itching 2022-0 MD INGREDI 6-03 Anderso 00:00: n 00 SODIUM DRUG Active High Sob 2022-0 MD LAURYL INGREDI 6-03 Anderso SULFATE 00:00: n 00 SILICONE DRUG Active Itching 2022-0 MD INGREDI 6-03 Anderso 00:00: n 00 SODIUM DRUG Active High Sob 2022-0 MD LAURYL INGREDI 6-03 Anderso SULFATE 00:00: n 00 SILICONE DRUG Active Itching 2022-0 MD INGREDI 6-03 Anderso 00:00: n 00 SODIUM DRUG Active High Sob 2022-0 MD LAURYL INGREDI 6-03 Anderso SULFATE 00:00: n 00 SODIUM DRUG Active High Sob 2022-0 MD LAURYL INGREDI 6-03 Anderso SULFATE 00:00: n 00 SILICONE DRUG Active Itching 2022-0 MD INGREDI 6-03 Anderso 00:00: n 00 SODIUM DRUG Active High Sob 2022-0 MD LAURYL INGREDI 6-03 Anderso SULFATE 00:00: n 00 SILICONE DRUG Active Itching 2022-0 MD INGREDI 6-03 Anderso 00:00: n 00 SODIUM DRUG Active High Sob 2022-0 MD LAURYL INGREDI 6-03 Anderso SULFATE 00:00: n 00 SILICONE DRUG Active Itching 2022-0 MD INGREDI 6-03 Anderso 00:00: n 00 SODIUM DRUG Active High Sob 2022-0 MD LAURYL INGREDI 6-03 Anderso SULFATE 00:00: n 00 SILICONE DRUG Active Itching 2022-0 MD INGREDI 6-03 Anderso 00:00: n 00 SODIUM DRUG Active High Sob 2022-0 MD LAURYL INGREDI 6-03 Anderso SULFATE 00:00: n 00 SILICONE DRUG Active Itching 2022-0 MD INGREDI 6-03 Anderso 00:00: n 00 SILICONE DRUG Active Itching 2022-0 MD INGREDI 6-03 Anderso 00:00: n 00 SODIUM DRUG Active High Sob 2022-0 MD LAURYL INGREDI 6-03 Anderso SULFATE 00:00: n 00 SILICONE DRUG Active Itching 2022-0 MD INGREDI 6-03 Anderso 00:00: n 00 SODIUM DRUG Active High Sob 2022-0 MD LAURYL INGREDI 6-03 Anderso SULFATE 00:00: n 00 SILICONE DRUG Active Itching 2022-0 MD INGREDI 6-03 Anderso 00:00: n 00 SODIUM DRUG Active High Sob 2022-0 MD LAURYL INGREDI 6-03 Anderso SULFATE 00:00: n 00 SILICONE DRUG Active Itching 2022-0 MD INGREDI 6-03 Anderso 00:00: n 00 SODIUM DRUG Active High Sob 2022-0 MD LAURYL INGREDI 6-03 Anderso SULFATE 00:00: n 00 SILICONE DRUG Active Itching 2022-0 MD INGREDI 6-03 Anderso 00:00: n 00 SODIUM DRUG Active High Sob 2022-0 MD LAURYL INGREDI 6-03 Anderso SULFATE 00:00: n 00 SILICONE DRUG Active Itching 2022-0 MD INGREDI 6-03 Anderso 00:00: n 00 Shellfis Propensi Active Swelling 2-0 Meth chayo h ty to 6-03 st Containi adverse 00:00: Hospita ng reaction 00 l Products s to drug Silicone Propensi Active Swelling Meth chayo ty to 03 st adverse 00:00: Hospita reaction 00 l s to drug Sodium Propensi Active Shortness Of Me thodi Lauryl ty to Breath 10-30 st Sulfate adverse 00:00: Hospita reaction 00 l s to drug Shellfis Drug Active Swelling Univer s h Allergy 10-30 ity of Containi 00:00: [place] 00 MD Avendaño [facility] Silicone Propensi Active Swelling Univ ers ty to 10-30 ity of adverse 00:00: [place] reaction 00 MD antonio card [facility] Sodium Drug Active Shortness Of Other Univ ers Lauryl Allergy Breath 10-30 reaction( ity of Sulfate 00:00: s): [place] 00 shortness of breath [facility] Iodine Propensi Active Rash Methodi ty to 5-25 st adverse 00:00: Hospita reaction 00 l s to drug Latex Propensi Active Rash Methodi ty to 25 st adverse 00:00: Hospita reaction 00 l s to drug Sulfa Propensi Active GI Methodi (Sulfona ty to Intolerance -25 st mide adverse 00:00: Hospita Antibiot reaction 00 l ics) s to drug Amoxicil Propensi Active GI Method i tera ty to Intolerance 5-25 st adverse 00:00: Hospita reaction 00 l s to drug Amoxicil Propensi Active Other (See Coughing Methodi tera-Pot ty to Comments) [address] Clavulan adverse 00:00: Hospita ate reaction 00 l s to drug EGG DRUG Active Swelling MD INGREDI 10-31 Anderso 00:00: n 00 EGG DRUG Active Swelling Univers INGREDI 10-31 ity of 00:00: [place] [facility] Egg Propensi Active Swelling Method i ty to 10-31 st adverse 00:00: Hospita reaction 00 l s to drug Egg Propensi Active Swelling Univer s ty to 10-31 ity of adverse 00:00: [place] reaction 00 MD antonio card [facility] AMOXICIL DRUG Active High Rash 2018- MD WILD INGREDI 02-24 Anderso 00:00: n 00 AMOXICIL DRUG Active High Rash 2019-0 MD TERA INGREDI 02-24 Anderso 00:00: n 00 AMOXICIL DRUG Active High Rash 2019-0 MD TERA INGREDI 02-24 Anderso 00:00: n 00 AMOXICIL DRUG Active High Rash 2019-0 MD TERA INGREDI 02-24 Anderso 00:00: n 00 AMOXICIL DRUG Active High Rash 2019-0 MD TERA INGREDI 02-24 Anderso 00:00: n 00 AMOXICIL DRUG Active High Rash 2019-0 MD TERA INGREDI 02-24 Anderso 00:00: n 00 AMOXICIL DRUG Active High Rash 2019-0 MD TERA INGREDI 02-24 Anderso 00:00: n 00 AMOXICIL DRUG Active High Rash 2019-0 MD TERA INGREDI 02-24 Anderso 00:00: n 00 AMOXICIL DRUG Active High Rash 2019-0 MD TERA INGREDI 02-24 Anderso 00:00: n 00 AMOXICIL DRUG Active High Rash 2019-0 MD TERA INGREDI 02-24 Anderso 00:00: n 00 AMOXICIL DRUG Active High Rash 2019-0 MD TERA INGREDI 02-24 Anderso 00:00: n 00 AMOXICIL DRUG Active High Rash 2019-0 MD TERA INGREDI 02-24 Anderso 00:00: n 00 AMOXICIL DRUG Active High Rash 2019-0 MD TERA INGREDI 02-24 Anderso 00:00: n 00 AMOXICIL DRUG Active High Rash 2019-0 MD TERA INGREDI 02-24 Anderso 00:00: n 00 AMOXICIL DRUG Active High Rash 2019-0 MD TERA INGREDI 02-24 Anderso 00:00: n 00 AMOXICIL DRUG Active High Rash 2019-0 MD TERA INGREDI 02-24 Anderso 00:00: n 00 AMOXICIL DRUG Active High Rash 2019-0 MD TERA INGREDI 02-24 Anderso 00:00: n 00 AMOXICIL DRUG Active High Rash 2019-0 MD TERA INGREDI 02-24 Anderso 00:00: n 00 AMOXICIL DRUG Active High Rash 2019-0 MD TERA INGREDI 02-24 Anderso 00:00: n 00 AMOXICIL DRUG Active High Rash 2019-0 MD TERA INGREDI 02-24 Anderso 00:00: n 00 AMOXICIL DRUG Active High Rash 2019-0 MD TERA INGREDI 02-24 Anderso 00:00: n 00 AMOXICIL DRUG Active High Rash 2019-0 MD TERA INGREDI 02-24 Anderso 00:00: n 00 AMOXICIL DRUG Active High Rash 2019-0 MD TERA INGREDI 02-24 Anderso 00:00: n 00 AMOXICIL DRUG Active High Rash 2019-0 MD TERA INGREDI 02-24 Anderso 00:00: n 00 AMOXICIL DRUG Active High Rash 2019-0 MD TERA INGREDI 02-24 Anderso 00:00: n 00 AMOXICIL DRUG Active High Rash 2019-0 MD ETRA INGREDI 02-24 Anderso 00:00: n 00 AMOXICIL DRUG Active High Rash 2019-0 MD TERA INGREDI 02-24 Anderso 00:00: n 00 AMOXICIL DRUG Active High Rash 2019-0 MD TERA INGREDI 02-24 Anderso 00:00: n 00 AMOXICIL DRUG Active High Rash 2019-0 MD TERA INGREDI 02-24 Anderso 00:00: n 00 AMOXICIL DRUG Active High Rash 2019-0 MD TERA INGREDI 02-24 Anderso 00:00: n 00 AMOXICIL DRUG Active High Rash 2019-0 MD TERA INGREDI 02-24 Anderso 00:00: n 00 AMOXICIL DRUG Active High Rash 2019-0 MD TERA INGREDI 02-24 Anderso 00:00: n 00 AMOXICIL DRUG Active High Rash 2019-0 MD TERA INGREDI 02-24 Anderso 00:00: n 00 AMOXICIL DRUG Active High Rash 2019-0 MD TERA INGREDI 02-24 Anderso 00:00: n 00 AMOXICIL DRUG Active High Rash 2019-0 MD TERA INGREDI 02-24 Anderso 00:00: n 00 AMOXICIL DRUG Active High Rash 2019-0 MD TERA INGREDI 02-24 Anderso 00:00: n 00 AMOXICIL DRUG Active High Rash 2019-0 MD TERA INGREDI 02-24 Anderso 00:00: n 00 AMOXICIL DRUG Active High Rash 2019-0 MD TERA INGREDI 28 Anderso 00:00: n 00 AMOXICIL DRUG Active High Rash 2019-0 MD TERA INGREDI 02-24 Anderso 00:00: n 00 AMOXICIL DRUG Active High Rash 2019-0 MD TERA INGREDI 28 Anderso 00:00: n 00 AMOXICIL DRUG Active High Rash 2019-0 MD TERA INGREDI 02-24 Anderso 00:00: n 00 AMOXICIL DRUG Active High Rash 2019-0 MD TERA INGREDI 02-24 Anderso 00:00: n 00 AMOXICIL DRUG Active High Rash 2019-0 MD TERA INGREDI 02-24 Anderso 00:00: n 00 AMOXICIL DRUG Active High Rash 2019-0 MD TERA INGREDI 02-24 Anderso 00:00: n 00 AMOXICIL DRUG Active High Rash 2019-0 MD TERA INGREDI 02-24 Anderso 00:00: n 00 AMOXICIL DRUG Active High Rash 2019-0 MD TERA INGREDI 02-24 Anderso 00:00: n 00 AMOXICIL DRUG Active High Rash 2019-0 MD TERA INGREDI 02-24 Anderso 00:00: n 00 AMOXICIL DRUG Active High Rash 2019-0 MD TERA INGREDI 02-24 Anderso 00:00: n 00 AMOXICIL DRUG Active High Rash 2019-0 MD TERA INGREDI 02-24 Anderso 00:00: n 00 AMOXICIL DRUG Active High Rash 2019-0 MD TERA INGREDI 02-24 Anderso 00:00: n 00 AMOXICIL DRUG Active High Rash 2019-0 MD TERA INGREDI 02-24 Anderso 00:00: n 00 AMOXICIL DRUG Active High Rash 2019-0 MD TERA INGREDI 02-24 Anderso 00:00: n 00 AMOXICIL DRUG Active High Rash 2019-0 MD TERA INGREDI 02-24 Anderso 00:00: n 00 AMOXICIL DRUG Active High Rash 2019-0 MD TERA INGREDI 02-24 Anderso 00:00: n 00 AMOXICIL DRUG Active High Rash 2019-0 MD TERA INGREDI 02-24 Anderso 00:00: n 00 AMOXICIL DRUG Active High Rash 2019-0 MD TERA INGREDI 02-24 Anderso 00:00: n 00 AMOXICIL DRUG Active High Rash 2019-0 MD TERA INGREDI 28 Anderso 00:00: n 00 AMOXICIL DRUG Active High Rash 2019-0 MD TERA INGREDI 28 Anderso 00:00: n 00 AMOXICIL DRUG Active High Rash 2019-0 MD TERA INGREDI 02-24 Anderso 00:00: n 00 AMOXICIL DRUG Active High Rash 2019-0 MD TERA INGREDI 02-24 Anderso 00:00: n 00 AMOXICIL DRUG Active High Rash 2019-0 MD TERA INGREDI 02-24 Anderso 00:00: n 00 AMOXICIL DRUG Active High Rash 2019-0 MD TERA INGREDI 02-24 Anderso 00:00: n 00 AMOXICIL DRUG Active High Rash 2019-0 MD TERA INGREDI 02-24 Anderso 00:00: n 00 AMOXICIL DRUG Active High Rash 2019-0 MD TERA INGREDI 02-24 Anderso 00:00: n 00 AMOXICIL DRUG Active High Rash 2019-0 MD TERA INGREDI 02-24 Anderso 00:00: n 00 AMOXICIL DRUG Active High Rash 2019-0 MD TERA INGREDI 02-24 Anderso 00:00: n 00 AMOXICIL DRUG Active High Rash 2019-0 MD TERA INGREDI 02-24 Anderso 00:00: n 00 AMOXICIL DRUG Active High Rash 2019-0 MD TERA INGREDI 02-24 Anderso 00:00: n 00 AMOXICIL DRUG Active High Rash 2019-0 MD TERA INGREDI 02-24 Anderso 00:00: n 00 AMOXICIL DRUG Active High Rash 2019-0 MD TERA INGREDI 02-24 Anderso 00:00: n 00 AMOXICIL DRUG Active High Rash 2019-0 MD TERA INGREDI 02-24 Anderso 00:00: n 00 AMOXICIL DRUG Active High Rash 2019-0 MD TERA INGREDI 02-24 Anderso 00:00: n 00 AMOXICIL DRUG Active High Rash 2019-0 MD TERA INGREDI 02-24 Anderso 00:00: n 00 AMOXICIL DRUG Active High Rash 2019-0 MD TERA INGREDI 02-24 Anderso 00:00: n 00 AMOXICIL DRUG Active High Rash 2019-0 MD TERA INGREDI 02-24 Anderso 00:00: n 00 AMOXICIL DRUG Active High Rash 2019-0 MD TERA INGREDI 02-24 Anderso 00:00: n 00 AMOXICIL DRUG Active High Rash 2019-0 MD TERA INGREDI 02-24 Anderso 00:00: n 00 AMOXICIL DRUG Active High Rash 2019-0 MD TERA INGREDI 02-24 Anderso 00:00: n 00 AMOXICIL DRUG Active High Rash 2019-0 MD TERA INGREDI 02-24 Anderso 00:00: n 00 AMOXICIL DRUG Active High Rash 2019-0 MD TERA INGREDI 02-24 Anderso 00:00: n 00 AMOXICIL DRUG Active High Rash 2019-0 MD TERA INGREDI 02-24 Anderso 00:00: n 00 AMOXICIL DRUG Active High Rash 2019-0 MD TERA INGREDI 02-24 Anderso 00:00: n 00 AMOXICIL DRUG Active High Rash 2019-0 MD TERA INGREDI 02-24 Anderso 00:00: n 00 AMOXICIL DRUG Active High Rash 2019-0 MD TERA INGREDI 02-24 Anderso 00:00: n 00 AMOXICIL DRUG Active High Rash 2019-0 MD TERA INGREDI 02-24 Anderso 00:00: n 00 AMOXICIL DRUG Active High Rash 2019-0 MD TERA INGREDI 02-24 Anderso 00:00: n 00 AMOXICIL DRUG Active High Rash 2019-0 MD TERA INGREDI 02-24 Anderso 00:00: n 00 AMOXICIL DRUG Active High Rash 2019-0 MD TERA INGREDI 02-24 Anderso 00:00: n 00 AMOXICIL DRUG Active High Rash 2019-0 MD TERA INGREDI 02-24 Anderso 00:00: n 00 AMOXICIL DRUG Active High Rash 2019-0 MD TERA INGREDI 02-24 Anderso 00:00: n 00 AMOXICIL DRUG Active High Rash 2019-0 MD TERA INGREDI 02-24 Anderso 00:00: n 00 AMOXICIL DRUG Active High Rash 2019-0 MD TERA INGREDI 02-24 Anderso 00:00: n 00 AMOXICIL DRUG Active High Rash 2019-0 MD TERA INGREDI 28 Anderso 00:00: n 00 AMOXICIL DRUG Active High Rash 2019-0 MD TERA INGREDI 02-24 Anderso 00:00: n 00 AMOXICIL DRUG Active High Rash 2019-0 MD TERA INGREDI 02-24 Anderso 00:00: n 00 AMOXICIL DRUG Active High Rash 2019-0 MD TERA INGREDI 02-24 Anderso 00:00: n 00 AMOXICIL DRUG Active High Rash 2019-0 MD TERA INGREDI 02-24 Anderso 00:00: n 00 AMOXICIL DRUG Active High Rash 2019-0 MD TEAR INGREDI 02-24 Anderso 00:00: n 00 AMOXICIL DRUG Active High Rash 2019-0 MD TERA INGREDI 02-24 Anderso 00:00: n 00 AMOXICIL DRUG Active High Rash 2019-0 MD TERA INGREDI 02-24 Anderso 00:00: n 00 AMOXICIL DRUG Active High Rash 2019-0 MD TERA INGREDI 02-24 Anderso 00:00: n 00 AMOXICIL DRUG Active High Rash 2019-0 MD TERA INGREDI 02-24 Anderso 00:00: n 00 AMOXICIL DRUG Active High Rash 2019-0 MD TERA INGREDI 02-24 Anderso 00:00: n 00 AMOXICIL DRUG Active High Rash 2019-0 MD TERA INGREDI 02-24 Anderso 00:00: n 00 AMOXICIL DRUG Active High Rash 2019-0 MD TERA INGREDI 02-24 Anderso 00:00: n 00 AMOXICIL DRUG Active High Rash 2019-0 MD TERA INGREDI 02-24 Anderso 00:00: n 00 AMOXICIL DRUG Active High Rash 2019-0 MD TERA INGREDI 02-24 Anderso 00:00: n 00 AMOXICIL DRUG Active High Rash 2019-0 MD TERA INGREDI 02-24 Anderso 00:00: n 00 AMOXICIL DRUG Active High Rash 2019-0 MD TERA INGREDI 02-24 Anderso 00:00: n 00 AMOXICIL DRUG Active High Rash 2019-0 MD TERA INGREDI 02-24 Anderso 00:00: n 00 AMOXICIL DRUG Active High Rash 2019-0 MD TERA INGREDI 02-24 Anderso 00:00: n 00 AMOXICIL DRUG Active High Rash 2019-0 MD TERA INGREDI 02-24 Anderso 00:00: n 00 AMOXICIL DRUG Active High Rash 2019-0 MD TERA INGREDI 28 Anderso 00:00: n 00 AMOXICIL DRUG Active High Rash 2019-0 MD TERA INGREDI 02-24 Anderso 00:00: n 00 AMOXICIL DRUG Active High Rash 2019-0 MD TERA INGREDI 28 Anderso 00:00: n 00 AMOXICIL DRUG Active High Rash 2019-0 MD TERA INGREDI 02-24 Anderso 00:00: n 00 AMOXICIL DRUG Active High Rash 2019-0 MD TERA INGREDI 02-24 Anderso 00:00: n 00 AMOXICIL DRUG Active High Rash 2019-0 MD TERA INGREDI 02-24 Anderso 00:00: n 00 AMOXICIL DRUG Active High Rash 2019-0 MD TERA INGREDI 02-24 Anderso 00:00: n 00 AMOXICIL DRUG Active High Rash 2019-0 MD TERA INGREDI 02-24 Anderso 00:00: n 00 AMOXICIL DRUG Active High Rash 2019-0 MD TERA INGREDI 02-24 Anderso 00:00: n 00 AMOXICIL DRUG Active High Rash 2019-0 MD TERA INGREDI 02-24 Anderso 00:00: n 00 AMOXICIL DRUG Active High Rash 2019-0 MD TERA INGREDI 02-24 Anderso 00:00: n 00 AMOXICIL DRUG Active High Rash 2019-0 MD TERA INGREDI 02-24 Anderso 00:00: n 00 AMOXICIL DRUG Active High Rash 2019-0 MD TERA INGREDI 02-24 Anderso 00:00: n 00 AMOXICIL DRUG Active High Rash 2019-0 MD TERA INGREDI 02-24 Anderso 00:00: n 00 AMOXICIL DRUG Active High Rash 2019-0 MD TERA INGREDI 02-24 Anderso 00:00: n 00 AMOXICIL DRUG Active High Rash 2019-0 MD TERA INGREDI 02-24 Anderso 00:00: n 00 AMOXICIL DRUG Active High Rash 2019-0 MD TERA INGREDI 02-24 Anderso 00:00: n 00 AMOXICIL DRUG Active High Rash 2019-0 MD TERA INGREDI 02-24 Anderso 00:00: n 00 AMOXICIL DRUG Active High Rash 2019-0 MD TERA INGREDI 02-24 Anderso 00:00: n 00 AMOXICIL DRUG Active High Rash 2019-0 MD TERA INGREDI 02-24 Anderso 00:00: n 00 AMOXICIL DRUG Active High Rash 2019-0 MD TERA INGREDI 02-24 Anderso 00:00: n 00 AMOXICIL DRUG Active High Rash 2019-0 MD TERA INGREDI 02-24 Anderso 00:00: n 00 AMOXICIL DRUG Active High Rash 2019-0 MD TERA INGREDI 02-24 Anderso 00:00: n 00 AMOXICIL DRUG Active High Rash 2019-0 MD TERA INGREDI -28 Anderso 00:00: n 00 AMOXICIL DRUG Active High Rash 2019-0 MD [facility] -28 Anderso 00:00: n 00 AMOXICIL DRUG Active High Rash 2019-0 MD [facility] 28 Anderso 00:00: n 00 AMOXICIL DRUG Active High Rash 2019-0 MD [facility] 02-24 Anderso 00:00: n 00 AMOXICIL DRUG Active High Rash 2019-0 MD [facility] 02-24 Anderso 00:00: n 00 AMOXICIL DRUG Active High Rash 2019-0 MD [facility] 02-24 Anderso 00:00: n 00 AMOXICIL DRUG Active High Rash 2019-0 MD [facility] 02-24 Anderso 00:00: n 00 AMOXICIL DRUG Active High Rash 2019-0 MD [facility] 02-24 Anderso 00:00: n 00 AMOXICIL DRUG Active High Rash 2019-0 MD [facility] 02-24 Anderso 00:00: n 00 AMOXICIL DRUG Active High Rash 2019-0 MD [facility] 28 Anderso 00:00: n 00 AMOXICIL DRUG Active High Rash 2019-0 MD [facility] 02-24 Anderso 00:00: n 00 AMOXICIL DRUG Active High Rash 2019-0 MD [facility] 02-24 Anderso 00:00: n 00 AMOXICIL DRUG Active High Rash 2019-0 MD [facility] 28 Anderso 00:00: n 00 AMOXICIL DRUG Active High Rash 2019-0 MD [facility] 28 Anderso 00:00: n 00 AMOXICIL DRUG Active High Rash 2019-0 MD [facility] 28 Anderso 00:00: n 00 AMOXICIL DRUG Active High Rash 2019-0 MD [facility] 28 Anderso 00:00: n 00 AMOXICIL DRUG Active High Rash 2019-0 MD [facility] 28 Anderso 00:00: n 00 AMOXICIL DRUG Active High Rash 2019-0 MD [facility] INGR[facility] -28 Anderso 00:00: n 00 AMOXICIL DRUG Active High Rash 2019-0 MD [facility] 28 Anderso 00:00: n 00 AMOXICIL DRUG Active High Rash 2019-0 MD [facility] 02-24 Anderso 00:00: n 00 AMOXICIL DRUG Active High Rash 2019-0 MD [facility] 02-24 Anderso 00:00: n 00 AMOXICIL DRUG Active High Rash 2019-0 MD [facility] 02-24 Anderso 00:00: n 00 AMOXICIL DRUG Active High Rash 2019-0 MD [facility] 02-24 Anderso 00:00: n 00 AMOXICIL DRUG Active High Rash 2019-0 MD [facility] 02-24 Anderso 00:00: n 00 AMOXICIL DRUG Active High Rash 2019-0 MD [facility] 02-24 Anderso 00:00: n 00 AMOXICIL DRUG Active High Rash 2019-0 MD [facility] 02-24 Anderso 00:00: n 00 AMOXICIL DRUG Active High Rash 2019-0 MD [facility] 02-24 Anderso 00:00: n 00 AMOXICIL DRUG Active High Rash 2019-0 MD [facility] 02-24 Anderso 00:00: n 00 AMOXICIL DRUG Active High Rash 2019-0 MD [facility] 02-24 Anderso 00:00: n 00 AMOXICIL DRUG Active High Rash 2019-0 MD [facility] 02-24 Anderso 00:00: n 00 AMOXICIL DRUG Active High Rash 2019-0 MD [facility] 02-24 Anderso 00:00: n 00 AMOXICIL DRUG Active High Rash 2019-0 MD [facility] 02-24 Anderso 00:00: n 00 AMOXICIL DRUG Active High Rash 2019-0 MD [facility] 02-24 Anderso 00:00: n 00 AMOXICIL DRUG Active High Rash 2019-0 MD [facility] 02-24 Anderso 00:00: n 00 AMOXICIL DRUG Active High Rash 2019-0 MD [facility] 02-24 Anderso 00:00: n 00 AMOXICIL DRUG Active High Rash 2019-0 MD [facility] 02-24 Anderso 00:00: n 00 AMOXICIL DRUG Active High Rash 2019-0 MD [facility] 02-24 Anderso 00:00: n 00 AMOXICIL DRUG Active High Rash 2019-0 MD [facility] 02-24 Anderso 00:00: n 00 AMOXICIL DRUG Active High Rash 2019-0 MD [facility] 02-24 Anderso 00:00: n 00 AMOXICIL DRUG Active High Rash 2019-0 MD [facility] 02-24 Anderso 00:00: n 00 AMOXICIL DRUG Active High Rash 2019-0 MD [facility] 02-24 Anderso 00:00: n 00 AMOXICIL DRUG Active High Rash 2019-0 MD [facility] 02-24 Anderso 00:00: n 00 AMOXICIL DRUG Active High Rash 2019-0 MD [facility] 02-24 Anderso 00:00: n 00 AMOXICIL DRUG Active High Rash 2019-0 MD [facility] 02-24 Anderso 00:00: n 00 AMOXICIL DRUG Active High Rash 2019-0 MD [facility] 02-24 Anderso 00:00: n 00 AMOXICIL DRUG Active High Rash 2019-0 MD [facility] 02-24 Anderso 00:00: n 00 AMOXICIL DRUG Active High Rash 2019-0 MD [facility] 02-24 Anderso 00:00: n 00 AMOXICIL DRUG Active High Rash 2019-0 MD [facility] 02-24 Anderso 00:00: n 00 AMOXICIL DRUG Active High Rash 2019-0 MD [facility] 02-24 Anderso 00:00: n 00 AMOXICIL DRUG Active High Rash 2019-0 MD [facility] 02-24 Anderso 00:00: n 00 AMOXICIL DRUG Active High Rash 2019-0 MD [facility] 02-24 Anderso 00:00: n 00 AMOXICIL DRUG Active High Rash 2019-0 MD [facility] 02-24 Anderso 00:00: n 00 AMOXICIL DRUG Active High Rash 2019-0 MD [facility] 02-24 Anderso 00:00: n 00 AMOXICIL DRUG Active High Rash 2019-0 MD [facility] 02-24 Anderso 00:00: n 00 AMOXICIL DRUG Active High Rash 2019-0 MD [facility] 02-24 Anderso 00:00: n 00 AMOXICIL DRUG Active High Rash 2019-0 MD [facility] 02-24 Anderso 00:00: n 00 AMOXICIL DRUG Active High Rash 2019-0 MD [facility] 02-24 Anderso 00:00: n 00 AMOXICIL DRUG Active High Rash 2019-0 MD [facility] 02-24 Anderso 00:00: n 00 AMOXICIL DRUG Active High Rash 2019-0 MD [facility] 02-24 Anderso 00:00: n 00 AMOXICIL DRUG Active High Rash 2019-0 MD [facility] 02-24 Anderso 00:00: n 00 AMOXICIL DRUG Active High Rash 2019-0 MD [facility] 02-24 Anderso 00:00: n 00 AMOXICIL DRUG Active High Rash 2019-0 MD [facility] 02-24 Anderso 00:00: n 00 AMOXICIL DRUG Active High Rash 2019-0 MD [facility] 02-24 Anderso 00:00: n 00 AMOXICIL DRUG Active High Rash 2019-0 MD [facility] 02-24 Anderso 00:00: n 00 AMOXICIL DRUG Active High Rash 2019-0 MD [facility] 02-24 Anderso 00:00: n 00 AMOXICIL DRUG Active High Rash 2019-0 MD [facility] 02-24 Anderso 00:00: n 00 AMOXICIL DRUG Active High Rash 2019-0 MD [facility] 02-24 Anderso 00:00: n 00 AMOXICIL DRUG Active High Rash 2019-0 MD [facility] 02-24 Anderso 00:00: n 00 AMOXICIL DRUG Active High Rash 2019-0 MD [facility] 02-24 Anderso 00:00: n 00 AMOXICIL DRUG Active High Rash 2019-0 MD [facility] 02-24 Anderso 00:00: n 00 AMOXICIL DRUG Active High Rash 2019-0 MD [facility] 02-24 Anderso 00:00: n 00 AMOXICIL DRUG Active High Rash 2019-0 MD [facility] 02-24 Anderso 00:00: n 00 AMOXICIL DRUG Active High Rash 2019-0 MD [facility] 02-24 Anderso 00:00: n 00 AMOXICIL DRUG Active High Rash 2019-0 MD [facility] 02-24 Anderso 00:00: n 00 AMOXICIL DRUG Active High Rash 2019-0 MD [facility] 02-24 Anderso 00:00: n 00 AMOXICIL DRUG Active High Rash 2019-0 MD [facility] 02-24 [facility] 00:00: n 00 AMOXICIL DRUG Active Rash 2019-0 [facility] [place] [facility] Amoxicil Propensi Active Rash 2019-0 [facility] s tera ty to 02-24 ity of adverse 00:00: [place] [facility] Amoxicil Drug Active Rash 2019-0 Other [facility] tera Allergy 02-24 reaction( ity of 00:00: s): [facility] [place] [facility] METFORMI DRUG Active High Other 2019-0 MD N (BULK) 4-14 Anderso 00:00: n 00 METFORMI DRUG Active High Other 2019-0 MD N (BULK) 4-14 Anderso 00:00: n 00 METFORMI DRUG Active High Other 2019-0 MD N (BULK) 4-14 Anderso 00:00: n 00 METFORMI DRUG Active High Other 2019-0 MD N (BULK) 4-14 Anderso 00:00: n 00 METFORMI DRUG Active High Other 2019-0 MD N (BULK) 4-14 Anderso 00:00: n 00 METFORMI DRUG Active High Other 2019-0 MD N (BULK) 4-14 Anderso 00:00: n 00 METFORMI DRUG Active High Other 2019-0 MD N (BULK) 4-14 Anderso 00:00: n 00 METFORMI DRUG Active High Other 2019-0 MD N (BULK) 4-14 Anderso 00:00: n 00 METFORMI DRUG Active High Other 2019-0 MD N (BULK) 4-14 Anderso 00:00: n 00 METFORMI DRUG Active High Other 2019-0 MD N (BULK) 4-14 Anderso 00:00: n 00 METFORMI DRUG Active High Other 2019-0 MD N (BULK) 4-14 Anderso 00:00: n 00 METFORMI DRUG Active High Other 2019-0 MD N (BULK) 4-14 Anderso 00:00: n 00 METFORMI DRUG Active High Other 2019-0 MD N (BULK) 4-14 Anderso 00:00: n 00 METFORMI DRUG Active High Other 2019-0 MD N (BULK) 4-14 Anderso 00:00: n 00 METFORMI DRUG Active High Other 2019-0 MD N (BULK) 4-14 Anderso 00:00: n 00 METFORMI DRUG Active High Other 2019-0 MD N (BULK) 4-14 Anderso 00:00: n 00 METFORMI DRUG Active High Other 2019-0 MD N (BULK) 4-14 Anderso 00:00: n 00 METFORMI DRUG Active High Other 2019-0 MD N (BULK) 4-14 Anderso 00:00: n 00 METFORMI DRUG Active High Other 2019-0 MD N (BULK) 4-14 Anderso 00:00: n 00 METFORMI DRUG Active High Other 2019-0 MD N (BULK) 4-14 Anderso 00:00: n 00 METFORMI DRUG Active High Other 2019-0 MD N (BULK) 4-14 Anderso 00:00: n 00 METFORMI DRUG Active High Other 2019-0 MD N (BULK) 4-14 Anderso 00:00: n 00 METFORMI DRUG Active High Other 2019-0 MD N (BULK) 4-14 Anderso 00:00: n 00 METFORMI DRUG Active High Other 2019-0 MD N (BULK) 4-14 Anderso 00:00: n 00 METFORMI DRUG Active High Other 2019-0 MD N (BULK) 4-14 Anderso 00:00: n 00 METFORMI DRUG Active High Other 2019-0 MD N (BULK) 4-14 Anderso 00:00: n 00 METFORMI DRUG Active High Other 2019-0 MD N (BULK) 4-14 Anderso 00:00: n 00 METFORMI DRUG Active High Other 2019-0 MD N (BULK) 4-14 Anderso 00:00: n 00 METFORMI DRUG Active High Other 2019-0 MD N (BULK) 4-14 Anderso 00:00: n 00 METFORMI DRUG Active High Other 2019-0 MD N (BULK) 4-14 Anderso 00:00: n 00 METFORMI DRUG Active High Other 2019-0 MD N (BULK) 4-14 Anderso 00:00: n 00 METFORMI DRUG Active High Other 2019-0 MD N (BULK) 4-14 Anderso 00:00: n 00 METFORMI DRUG Active High Other 2019-0 MD N (BULK) 4-14 Anderso 00:00: n 00 METFORMI DRUG Active High Other 2019-0 MD N (BULK) 4-14 Anderso 00:00: n 00 METFORMI DRUG Active High Other 2019-0 MD N (BULK) 4-14 Anderso 00:00: n 00 METFORMI DRUG Active High Other 2019-0 MD N (BULK) 4-14 Anderso 00:00: n 00 METFORMI DRUG Active High Other 2019-0 MD N (BULK) 4-14 Anderso 00:00: n 00 METFORMI DRUG Active High Other 2019-0 MD N (BULK) 4-14 Anderso 00:00: n 00 METFORMI DRUG Active High Other 2019-0 MD N (BULK) 4-14 Anderso 00:00: n 00 METFORMI DRUG Active High Other 2019-0 MD N (BULK) 4-14 Anderso 00:00: n 00 METFORMI DRUG Active High Other 2019-0 MD N (BULK) 4-14 Anderso 00:00: n 00 METFORMI DRUG Active High Other 2019-0 MD N (BULK) 4-14 Anderso 00:00: n 00 METFORMI DRUG Active High Other 2019-0 MD N (BULK) 4-14 Anderso 00:00: n 00 METFORMI DRUG Active High Other 2019-0 MD N (BULK) 4-14 Anderso 00:00: n 00 METFORMI DRUG Active High Other 2019-0 MD N (BULK) 4-14 Anderso 00:00: n 00 METFORMI DRUG Active High Other 2019-0 MD N (BULK) 4-14 Anderso 00:00: n 00 METFORMI DRUG Active High Other 2019-0 MD N (BULK) 4-14 Anderso 00:00: n 00 METFORMI DRUG Active High Other 2019-0 MD N (BULK) 4-14 Anderso 00:00: n 00 METFORMI DRUG Active High Other 2019-0 MD N (BULK) 4-14 Anderso 00:00: n 00 METFORMI DRUG Active High Other 2019-0 MD N (BULK) 4-14 Anderso 00:00: n 00 METFORMI DRUG Active High Other 2019-0 MD N (BULK) 4-14 Anderso 00:00: n 00 METFORMI DRUG Active High Other 2019-0 MD N (BULK) 4-14 Anderso 00:00: n 00 METFORMI DRUG Active High Other 2019-0 MD N (BULK) 4-14 Anderso 00:00: n 00 METFORMI DRUG Active High Other 2019-0 MD N (BULK) 4-14 Anderso 00:00: n 00 METFORMI DRUG Active High Other 2019-0 MD N (BULK) 4-14 Anderso 00:00: n 00 METFORMI DRUG Active High Other 2019-0 MD N (BULK) 4-14 Anderso 00:00: n 00 METFORMI DRUG Active High Other 2019-0 MD N (BULK) 4-14 Anderso 00:00: n 00 METFORMI DRUG Active High Other 2019-0 MD N (BULK) 4-14 Anderso 00:00: n 00 METFORMI DRUG Active High Other 2019-0 MD N (BULK) 4-14 Anderso 00:00: n 00 METFORMI DRUG Active High Other 2019-0 MD N (BULK) 4-14 Anderso 00:00: n 00 METFORMI DRUG Active High Other 2019-0 MD N (BULK) 4-14 Anderso 00:00: n 00 METFORMI DRUG Active High Other 2019-0 MD N (BULK) 4-14 Anderso 00:00: n 00 METFORMI DRUG Active High Other 2019-0 MD N (BULK) 4-14 Anderso 00:00: n 00 METFORMI DRUG Active High Other 2019-0 MD N (BULK) 4-14 Anderso 00:00: n 00 METFORMI DRUG Active High Other 2019-0 MD N (BULK) 4-14 Anderso 00:00: n 00 METFORMI DRUG Active High Other 2019-0 MD N (BULK) 4-14 Anderso 00:00: n 00 METFORMI DRUG Active High Other 2019-0 MD N (BULK) 4-14 Anderso 00:00: n 00 METFORMI DRUG Active High Other 2019-0 MD N (BULK) 4-14 Anderso 00:00: n 00 METFORMI DRUG Active High Other 2019-0 MD N (BULK) 4-14 Anderso 00:00: n 00 METFORMI DRUG Active High Other 2019-0 MD N (BULK) 4-14 Anderso 00:00: n 00 METFORMI DRUG Active High Other 2019-0 MD N (BULK) 4-14 Anderso 00:00: n 00 METFORMI DRUG Active High Other 2019-0 MD N (BULK) 4-14 Anderso 00:00: n 00 METFORMI DRUG Active High Other 2019-0 MD N (BULK) 4-14 Anderso 00:00: n 00 METFORMI DRUG Active High Other 2019-0 MD N (BULK) 4-14 Anderso 00:00: n 00 METFORMI DRUG Active High Other 2019-0 MD N (BULK) 4-14 Anderso 00:00: n 00 METFORMI DRUG Active High Other 2019-0 MD N (BULK) 4-14 Anderso 00:00: n 00 METFORMI DRUG Active High Other 2019-0 MD N (BULK) 4-14 Anderso 00:00: n 00 METFORMI DRUG Active High Other 2019-0 MD N (BULK) 4-14 Anderso 00:00: n 00 METFORMI DRUG Active High Other 2019-0 MD N (BULK) 4-14 Anderso 00:00: n 00 METFORMI DRUG Active High Other 2019-0 MD N (BULK) 4-14 Anderso 00:00: n 00 METFORMI DRUG Active High Other 2019-0 MD N (BULK) 4-14 Anderso 00:00: n 00 METFORMI DRUG Active High Other 2019-0 MD N (BULK) 4-14 Anderso 00:00: n 00 METFORMI DRUG Active High Other 2019-0 MD N (BULK) 4-14 Anderso 00:00: n 00 METFORMI DRUG Active High Other 2019-0 MD N (BULK) 4-14 Anderso 00:00: n 00 METFORMI DRUG Active High Other 2019-0 MD N (BULK) 4-14 Anderso 00:00: n 00 METFORMI DRUG Active High Other 2019-0 MD N (BULK) 4-14 Anderso 00:00: n 00 METFORMI DRUG Active High Other 2019-0 MD N (BULK) 4-14 Anderso 00:00: n 00 METFORMI DRUG Active High Other 2019-0 MD N (BULK) 4-14 Anderso 00:00: n 00 METFORMI DRUG Active High Other 2019-0 MD N (BULK) 4-14 Anderso 00:00: n 00 METFORMI DRUG Active High Other 2019-0 MD N (BULK) 4-14 Anderso 00:00: n 00 METFORMI DRUG Active High Other 2019-0 MD N (BULK) 4-14 Anderso 00:00: n 00 METFORMI DRUG Active High Other 2019-0 MD N (BULK) 4-14 Anderso 00:00: n 00 METFORMI DRUG Active High Other 2019-0 MD N (BULK) 4-14 Anderso 00:00: n 00 METFORMI DRUG Active High Other 2019-0 MD N (BULK) 4-14 Anderso 00:00: n 00 METFORMI DRUG Active High Other 2019-0 MD N (BULK) 4-14 Anderso 00:00: n 00 METFORMI DRUG Active High Other 2019-0 MD N (BULK) 4-14 Anderso 00:00: n 00 METFORMI DRUG Active High Other 2019-0 MD N (BULK) 4-14 Anderso 00:00: n 00 METFORMI DRUG Active High Other 2019-0 MD N (BULK) 4-14 Anderso 00:00: n 00 METFORMI DRUG Active High Other 2019-0 MD N (BULK) 4-14 Anderso 00:00: n 00 METFORMI DRUG Active High Other 2019-0 MD N (BULK) 4-14 Anderso 00:00: n 00 METFORMI DRUG Active High Other 2019-0 MD N (BULK) 4-14 Anderso 00:00: n 00 METFORMI DRUG Active High Other 2019-0 MD N (BULK) 4-14 Anderso 00:00: n 00 METFORMI DRUG Active High Other 2019-0 MD N (BULK) 4-14 Anderso 00:00: n 00 METFORMI DRUG Active High Other 2019-0 MD N (BULK) 4-14 Anderso 00:00: n 00 METFORMI DRUG Active High Other 2019-0 MD N (BULK) 4-14 Anderso 00:00: n 00 METFORMI DRUG Active High Other 2019-0 MD N (BULK) 4-14 Anderso 00:00: n 00 METFORMI DRUG Active High Other 2019-0 MD N (BULK) 4-14 Anderso 00:00: n 00 METFORMI DRUG Active High Other 2019-0 MD N (BULK) 4-14 Anderso 00:00: n 00 METFORMI DRUG Active High Other 2019-0 MD N (BULK) 4-14 Anderso 00:00: n 00 METFORMI DRUG Active High Other 2019-0 MD N (BULK) 4-14 Anderso 00:00: n 00 METFORMI DRUG Active High Other 2019-0 MD N (BULK) 4-14 Anderso 00:00: n 00 METFORMI DRUG Active High Other 2019-0 MD N (BULK) 4-14 Anderso 00:00: n 00 METFORMI DRUG Active High Other 2019-0 MD N (BULK) 4-14 Anderso 00:00: n 00 METFORMI DRUG Active High Other 2019-0 MD N (BULK) 4-14 Anderso 00:00: n 00 METFORMI DRUG Active High Other 2019-0 MD N (BULK) 4-14 Anderso 00:00: n 00 METFORMI DRUG Active High Other 2019-0 MD N (BULK) 4-14 Anderso 00:00: n 00 METFORMI DRUG Active High Other 2019-0 MD N (BULK) 4-14 Anderso 00:00: n 00 METFORMI DRUG Active High Other 2019-0 MD N (BULK) 4-14 Anderso 00:00: n 00 METFORMI DRUG Active High Other 2019-0 MD N (BULK) 4-14 Anderso 00:00: n 00 METFORMI DRUG Active High Other 2019-0 MD N (BULK) 4-14 Anderso 00:00: n 00 METFORMI DRUG Active High Other 2019-0 MD N (BULK) 4-14 Anderso 00:00: n 00 METFORMI DRUG Active High Other 2019-0 MD N (BULK) 4-14 Anderso 00:00: n 00 METFORMI DRUG Active High Other 2019-0 MD N (BULK) 4-14 Anderso 00:00: n 00 METFORMI DRUG Active High Other 2019-0 MD N (BULK) 4-14 Anderso 00:00: n 00 METFORMI DRUG Active High Other 2019-0 MD N (BULK) 4-14 Anderso 00:00: n 00 METFORMI DRUG Active High Other 2019-0 MD N (BULK) 4-14 Anderso 00:00: n 00 METFORMI DRUG Active High Other 2019-0 MD N (BULK) 4-14 Anderso 00:00: n 00 METFORMI DRUG Active High Other 2019-0 MD N (BULK) 4-14 Anderso 00:00: n 00 METFORMI DRUG Active High Other 2019-0 MD N (BULK) 4-14 Anderso 00:00: n 00 METFORMI DRUG Active High Other 2019-0 MD N (BULK) 4-14 Anderso 00:00: n 00 METFORMI DRUG Active High Other 2019-0 MD N (BULK) 4-14 Anderso 00:00: n 00 METFORMI DRUG Active High Other 2019-0 MD N (BULK) 4-14 Anderso 00:00: n 00 METFORMI DRUG Active High Other 2019-0 MD N (BULK) 4-14 Anderso 00:00: n 00 METFORMI DRUG Active High Other 2019-0 MD N (BULK) 4-14 Anderso 00:00: n 00 METFORMI DRUG Active High Other 2019-0 MD N (BULK) 4-14 Anderso 00:00: n 00 METFORMI DRUG Active High Other 2019-0 MD N (BULK) 4-14 Anderso 00:00: n 00 METFORMI DRUG Active High Other 2019-0 MD N (BULK) 4-14 Anderso 00:00: n 00 METFORMI DRUG Active High Other 2019-0 MD N (BULK) 4-14 Anderso 00:00: n 00 METFORMI DRUG Active High Other 2019-0 MD N (BULK) 4-14 Anderso 00:00: n 00 METFORMI DRUG Active High Other 2019-0 MD N (BULK) 4-14 Anderso 00:00: n 00 METFORMI DRUG Active High Other 2019-0 MD N (BULK) 4-14 Anderso 00:00: n 00 METFORMI DRUG Active High Other 2019-0 MD N (BULK) 4-14 Anderso 00:00: n 00 METFORMI DRUG Active High Other 2019-0 MD N (BULK) 4-14 Anderso 00:00: n 00 METFORMI DRUG Active High Other 2019-0 MD N (BULK) 4-14 Anderso 00:00: n 00 METFORMI DRUG Active High Other 2019-0 MD N (BULK) 4-14 Anderso 00:00: n 00 METFORMI DRUG Active High Other 2019-0 MD N (BULK) 4-14 Anderso 00:00: n 00 METFORMI DRUG Active High Other 2019-0 MD N (BULK) 4-14 Anderso 00:00: n 00 METFORMI DRUG Active High Other 2019-0 MD N (BULK) 4-14 Anderso 00:00: n 00 METFORMI DRUG Active High Other 2019-0 MD N (BULK) 4-14 Anderso 00:00: n 00 METFORMI DRUG Active High Other 2019-0 MD N (BULK) 4-14 Anderso 00:00: n 00 METFORMI DRUG Active High Other 2019-0 MD N (BULK) 4-14 Anderso 00:00: n 00 METFORMI DRUG Active High Other 2019-0 MD N (BULK) 4-14 Anderso 00:00: n 00 METFORMI DRUG Active High Other 2019-0 MD N (BULK) 4-14 Anderso 00:00: n 00 METFORMI DRUG Active High Other 2019-0 MD N (BULK) 4-14 Anderso 00:00: n 00 METFORMI DRUG Active High Other 2019-0 MD N (BULK) 4-14 Anderso 00:00: n 00 METFORMI DRUG Active High Other 2019-0 MD N (BULK) 4-14 Anderso 00:00: n 00 METFORMI DRUG Active High Other 2019-0 MD N (BULK) 4-14 Anderso 00:00: n 00 METFORMI DRUG Active High Other 2019-0 MD N (BULK) 4-14 Anderso 00:00: n 00 METFORMI DRUG Active High Other 2019-0 MD N (BULK) 4-14 Anderso 00:00: n 00 METFORMI DRUG Active High Other 2019-0 MD N (BULK) 4-14 Anderso 00:00: n 00 METFORMI DRUG Active High Other 2019-0 MD N (BULK) 4-14 Anderso 00:00: n 00 METFORMI DRUG Active High Other 2019-0 MD N (BULK) 4-14 Anderso 00:00: n 00 METFORMI DRUG Active High Other 2019-0 MD N (BULK) 4-14 Anderso 00:00: n 00 METFORMI DRUG Active High Other 2019-0 MD N (BULK) 4-14 Anderso 00:00: n 00 METFORMI DRUG Active High Other 2019-0 MD N (BULK) 4-14 Anderso 00:00: n 00 METFORMI DRUG Active High Other 2019-0 MD N (BULK) 4-14 Anderso 00:00: n 00 METFORMI DRUG Active High Other 2019-0 MD N (BULK) 4-14 Anderso 00:00: n 00 METFORMI DRUG Active High Other 2019-0 MD N (BULK) 4-14 Anderso 00:00: n 00 METFORMI DRUG Active High Other 2019-0 MD N (BULK) 4-14 Anderso 00:00: n 00 METFORMI DRUG Active High Other 2019-0 MD N (BULK) 4-14 Anderso 00:00: n 00 METFORMI DRUG Active High Other 2019-0 MD N (BULK) 4-14 Anderso 00:00: n 00 METFORMI DRUG Active High Other 2019-0 MD N (BULK) 4-14 Anderso 00:00: n 00 METFORMI DRUG Active High Other 2019-0 MD N (BULK) 4-14 Anderso 00:00: n 00 METFORMI DRUG Active High Other 2019-0 MD N (BULK) 4-14 Anderso 00:00: n 00 METFORMI DRUG Active High Other 2019-0 MD N (BULK) 4-14 Anderso 00:00: n 00 METFORMI DRUG Active High Other 2019-0 MD N (BULK) 4-14 Anderso 00:00: n 00 METFORMI DRUG Active High Other 2019-0 MD N (BULK) 4-14 Anderso 00:00: n 00 METFORMI DRUG Active High Other 2019-0 MD N (BULK) 4-14 Anderso 00:00: n 00 METFORMI DRUG Active High Other 2019-0 MD N (BULK) 4-14 Anderso 00:00: n 00 METFORMI DRUG Active High Other 2019-0 MD N (BULK) 4-14 [facility]o 00:00: n 00 METFORMI DRUG Active High Other 2019-0 MD N (BULK) 4-14 Anderso 00:00: n 00 METFORMI DRUG Active High Other 2019-0 MD N (BULK) 4-14 [facility]o 00:00: n 00 METFORMI DRUG Active High Other 2019-0 MD N (BULK) 4-14 Anderso 00:00: n 00 METFORMI DRUG Active High Other 2019-0 MD N (BULK) 4-14 Anderso 00:00: n 00 METFORMI DRUG Active High Other 2019-0 MD N (BULK) 4-14 Anderso 00:00: n 00 METFORMI DRUG Active High Other 2019-0 MD N (BULK) 4-14 Anderso 00:00: n 00 METFORMI DRUG Active High Other 2019-0 MD N (BULK) 4-14 [facility]o 00:00: n 00 METFORMI DRUG Active High Other 2019-0 MD N (BULK) 4-14 Anderso 00:00: n 00 METFORMI DRUG Active High Other 2019-0 MD N (BULK) 4-14 Anderso 00:00: n 00 METFORMI DRUG Active High Other 2019-0 MD N (BULK) 4-14 [facility] 00:00: n 00 METFORMI DRUG Active High Other 2019-0 MD N (BULK) 4-14 [facility] 00:00: n 00 METFORMI DRUG Active High Other 2019-0 MD N (BULK) 4-14 [facility] 00:00: n 00 METFORMI DRUG Active High Other 2019-0 MD N (BULK) 4-14 [facility] 00:00: n 00 METFORMI DRUG Active High Other 2019-0 MD N (BULK) 4-14 [facility] 00:00: n 00 METFORMI DRUG Active High Other 2019-0 MD N (BULK) 4-14 [facility]o 00:00: n 00 METFORMI DRUG Active High Other 2019-0 MD N (BULK) 4-14 [facility] 00:00: n 00 METFORMI DRUG Active High Other 2019-0 MD N (BULK) 4-14 [facility] 00:00: n 00 METFORMI DRUG Active High Other 2019-0 MD N (BULK) 4-14 Anderso 00:00: n 00 METFORMI DRUG Active High Other 2019-0 MD N (BULK) 4-14 Anderso 00:00: n 00 METFORMI DRUG Active High Other 2019-0 MD N (BULK) 4-14 Anderso 00:00: n 00 METFORMI DRUG Active High Other 2019-0 MD N (BULK) 4-14 Anderso 00:00: n 00 METFORMI DRUG Active High Other 2019-0 MD N (BULK) 4-14 Anderso 00:00: n 00 METFORMI DRUG Active High Other 2019-0 MD N (BULK) 4-14 Anderso 00:00: n 00 METFORMI DRUG Active High Other 2019-0 MD N (BULK) 4-14 Anderso 00:00: n 00 METFORMI DRUG Active High Other 2019-0 MD N (BULK) 4-14 Anderso 00:00: n 00 METFORMI DRUG Active High Other 2019-0 MD N (BULK) 4-14 Anderso 00:00: n 00 METFORMI DRUG Active High Other 2019-0 MD N (BULK) 4-14 Anderso 00:00: n 00 METFORMI DRUG Active High Other 2019-0 MD N (BULK) 4-14 Anderso 00:00: n 00 METFORMI DRUG Active High Other 2019-0 MD N (BULK) 4-14 Anderso 00:00: n 00 METFORMI DRUG Active High Other 2019-0 MD N (BULK) 4-14 Anderso 00:00: n 00 METFORMI DRUG Active High Other 2019-0 MD N (BULK) 4-14 Anderso 00:00: n 00 METFORMI DRUG Active High Other-Cmnt 2019-0 Univ ers N (BULK) 4-14 [facility] 00:[facility]: [place] [facility] AMPICILL DRUG Active Med Anxiety 2019-0 Univers IN 4-14 ity of (BULK) 00:00: [place] [facility] Ampicill Propensi Active Anxiety 2019-0 Unive rs in ty to 4-14 ity of (Bulk) adverse 00:00: [place] reaction 00 [facility] Metformi Propensi Active Altered 2019-0 Severe Metho di n (Bulk) ty to Mental -[address] adverse Status 00:00: n, [facility]osp[facility] reaction 00 delusions l s to . See drug nurse note from 09/10/18 urgent care visit.Sev ere aggressio n, delusions . See nurse note from 09/10/18 urgent care visit. Metformi Propensi Active Other (See 2019-0 Other Un dequan n (Bulk) ty to Comments) 4-14 reaction( it y of adverse 00:00: s): [place] reaction 00 Altered MD s Mental Anderso StatusSev n ere Cancer aggressio Center n, delusions . See nurse note from 09/10/18 urgent care visit.Sev ere aggressio n, delusions . See nurse note from 09/10/18 urgent care visit.Sev ere aggressio n, delusions . See nurse note from 09/10/18 urgent care visit. ETHYL DRUG Active Other 2016-05 ALCOHOL INGREDI 06-18 Anderso 00:00: n 00 ETHYL DRUG Active Other-Cmnt 2016-05 Univer s ALCOHOL INGREDI 06-18 ity of 00:00: [place] [facility] Ethyl Propensi Active Other - See 2016-05 Patient Un dequan Alcohol ty to comments 06-18 prefers ity of adverse 00:00: providers [place] reaction 00 to wash Medical s hands Branch with soap and water Ethyl Propensi Active GI 2016-05 Patient Methodi Alcohol ty to Intolerance 06-[address] adverse 00:00: providers Hospit a reaction 00 to wash l s to hands drug with soap and waterPati ent prefers providers to wash hands with [employer] [facility] Active Other 2016-05 MD [facility] 13 Anderso 00:00: n 00 [facility] Active Low Anxiety 2016-05 MD [facility] 13 Anderso 00:00: n 00 [facility] Active Other 2016-05 MD [facility] 13 Anderso 00:00: n 00 [facility] Active Low Anxiety 2016-05 MD [facility] 13 Anderso 00:00: n 00 [facility] Active Other 2016-05 MD [facility] 13 Anderso 00:00: n 00 [facility] Active Low Anxiety 2016-05 MD [facility] 13 Anderso 00:00: n 00 [facility] Active Other 2016-05 MD [facility] 13 Anderso 00:00: n 00 [facility] Active Low Anxiety 2016-05 MD [facility] -13 Anderso 00:00: n 00 [facility] Active Other 2016-05 MD [facility] 13 Anderso 00:00: n 00 [facility] Active Other 2016-05 MD [facility] 13 Anderso 00:00: n 00 [facility] Active Low Anxiety 2016-05 MD M INGREDI 1-13 Anderso 00:00: n 00 [facility] Active Other 2017- AL INGREDI 1-13 Anderso 00:00: n 00 [facility] Active Low Anxiety 2017- M INGREDI 1-13 Anderso 00:00: n 00 [facility] Active Low Anxiety 2017- M INGREDI 1-13 Anderso 00:00: n 00 [facility] Active Other 2017- AL INGR[facility]I 1-13 Anderso 00:00: n 00 [facility] Active Low Anxiety 2017- M INGREDI 1-13 Anderso 00:00: n 00 [facility] Active Other 2017- AL INGR[facility]I 1-13 Anderso 00:00: n 00 [facility] Active Low Anxiety 2017- MD [facility] 1-13 Anderso 00:00: n 00 [facility] Active Other 2017- AL INGREDI 1-13 Anderso 00:00: n 00 [facility] Active Low Anxiety 2017- M INGREDI 1-13 Anderso 00:00: n 00 [facility] Active Other 2017- AL INGR[facility]I 1-13 Anderso 00:00: n 00 [facility] Active Low Anxiety 2017- M INGREDI 1-13 Anderso 00:00: n 00 [facility] Active Other 2017- AL INGR[facility]I 1-13 Anderso 00:00: n 00 [facility] Active Low Anxiety 2017- M INGREDI 1-13 Anderso 00:00: n 00 [facility] Active Other 2017- AL INGR[facility]I 1-13 Anderso 00:00: n 00 [facility] Active Low Anxiety 2017- M INGREDI 1-13 Anderso 00:00: n 00 [facility] Active Other 2017- AL INGREDI 1-13 Anderso 00:00: n 00 [facility] Active Low Anxiety 2017- MD [facility] 1-13 Anderso 00:00: n 00 [facility] Active Other 2017- AL INGR[facility]I 1-13 Anderso 00:00: n 00 [facility] Active Low Anxiety 2017- MD [facility] 1-13 Anderso 00:00: n 00 [facility] Active Other 2017- AL INGREDI 1-13 Anderso 00:00: n 00 [facility] Active Low Anxiety 2017- MD [facility] 1-13 Anderso 00:00: n 00 [facility] Active Other 2017- AL INGREDI 1-13 Anderso 00:00: n 00 [facility] Active Other 2017- AL INGREDI 1-13 Anderso 00:00: n 00 [facility] Active Low Anxiety 2017- MD [facility] 1-13 Anderso 00:00: n 00 [facility] Active Other 2017- AL INGREDI 1-13 Anderso 00:00: n 00 [facility] Active Low Anxiety 2017- MD [facility] 1-13 Anderso 00:00: n 00 [facility] Active Low Anxiety 2017- MD eDy INGREDI 1-13 Anderso 00:00: n 00 [facility] Active Other 2017- AL INGREDI 1-13 Anderso 00:00: n 00 [facility] Active Low Anxiety 2017- MD [facility] 1-13 Anderso 00:00: n 00 [facility] Active Other 2017- AL INGR[facility]I 1-13 Anderso 00:00: n 00 [facility] Active Low Anxiety 2017- MD [facility] 1-13 Anderso 00:00: n 00 [facility] Active Other 2017- MD [facility] 1-13 Anderso 00:00: n 00 [facility] Active Low Anxiety 2017- MD [facility] 1-13 Anderso 00:00: n 00 [facility] Active Other 2017- MD [facility] 1-13 Anderso 00:00: n 00 [facility] Active Low Anxiety 2017- MD [facility] 1-13 Anderso 00:00: n 00 [facility] Active Other 2017- MD [facility] 1-13 Anderso 00:00: n 00 [facility] Active Low Anxiety 2017- MD [facility] 1-13 Anderso 00:00: n 00 [facility] Active Other 2017- MD [facility] 1-13 Anderso 00:00: n 00 [facility] Active Low Anxiety 2017- MD M [facility]GR[facility]I 1-13 Anderso 00:00: n 00 [facility] Active Other 2017- AL INGREDI 1-13 Anderso 00:00: n 00 [facility] Active Low Anxiety 2017- M INGREDI 1-13 Anderso 00:00: n 00 [facility] Active Other 2017- AL INGREDI 1-13 Anderso 00:00: n 00 [facility] Active Low Anxiety 2017- M INGREDI 1-13 Anderso 00:00: n 00 [facility] Active Other 2017- AL INGREDI 1-13 Anderso 00:00: n 00 [facility] Active Other 2017- AL INGREDI 1-13 Anderso 00:00: n 00 [facility] Active Low Anxiety 2017- MD [facility] 1-13 Anderso 00:00: n 00 [facility] Active Other 2017- AL INGREDI 1-13 Anderso 00:00: n 00 [facility] Active Low Anxiety 2017- M INGREDI 1-13 Anderso 00:00: n 00 [facility] Active Low Anxiety 2017- MD [facility] 1-13 Anderso 00:00: n 00 [facility] Active Other 2017- AL INGR[facility]I 1-13 Anderso 00:00: n 00 [facility] Active Low Anxiety 2017- MD [facility] 1-13 Anderso 00:00: n 00 [facility] Active Other 2017- AL INGR[facility]I 1-13 Anderso 00:00: n 00 [facility] Active Low Anxiety 2017- MD [facility] 1-13 Anderso 00:00: n 00 [facility] Active Other 2017- AL INGREDI 1-13 Anderso 00:00: n 00 [facility] Active Low Anxiety 2017- MD [facility] 1-13 Anderso 00:00: n 00 [facility] Active Other 2017- AL INGR[facility]I 1-13 Anderso 00:00: n 00 [facility] Active Low Anxiety 2017- MD [facility] 1-13 Anderso 00:00: n 00 [facility] Active Other 2017- AL [facility]GR[facility]I 1-13 Anderso 00:00: n 00 [facility] Active Low Anxiety 2017- MD [facility] 1-13 Anderso 00:00: n 00 [facility] Active Other 2017- AL [facility]GR[facility]I 1-13 Anderso 00:00: n 00 [facility] Active Low Anxiety 2017- M INGREDI 1-13 Anderso 00:00: n 00 [facility] Active Other 2017- AL [facility]GR[facility]I 1-13 Anderso 00:00: n 00 [facility] Active Low Anxiety 2017- M INGREDI 1-13 Anderso 00:00: n 00 [facility] Active Other 2017- AL [facility]GR[facility]I 1-13 Anderso 00:00: n 00 [facility] Active Low Anxiety 2017- M INGREDI 1-13 Anderso 00:00: n 00 [facility] Active Other 2017- AL [facility] 1-13 Anderso 00:00: n 00 [facility] Active Other 2017- AL [facility]I 1-13 Anderso 00:00: n 00 [facility] Active Low Anxiety 2017- M INGREDI 1-13 Anderso 00:00: n 00 [facility] Active Low Anxiety 2017- MD [facility] 1-13 Anderso 00:00: n 00 [facility] Active Other 2017- AL [facility] 1-13 Anderso 00:00: n 00 [facility] Active Low Anxiety 2017- MD [facility] 1-13 Anderso 00:00: n 00 [facility] Active Other 2017- AL [facility]I 1-13 Anderso 00:00: n 00 [facility] Active Low Anxiety 2017- M INGR[facility]I 1-13 Anderso 00:00: n 00 [facility] Active Other 2017- AL [facility]I 1-13 Anderso 00:00: n 00 [facility] Active Low Anxiety 2017- MD [facility] 1-13 Anderso 00:00: n 00 [facility] Active Other 2017- AL [facility] 1-13 Anderso 00:00: n 00 [facility] Active Low Anxiety 2017- MD [facility] 1-13 Anderso 00:00: n 00 [facility] Active Other 2017- AL [facility] 1-13 Anderso 00:00: n 00 [facility] Active Low Anxiety 2017- MD M [facility]GR[facility]I 1-13 Anderso 00:00: n 00 [facility] Active Other 2017- AL [facility] 1-13 Anderso 00:00: n 00 [facility] Active Low Anxiety 2017- MD M [facility]GR[facility]I 1-13 Anderso 00:00: n 00 [facility] Active Other 2017- AL [facility] 1-13 Anderso 00:00: n 00 [facility] Active Low Anxiety 2017- M [facility]GREDI 1-13 Anderso 00:00: n 00 [facility] Active Other 2017- AL [facility] 1-13 Anderso 00:00: n 00 [facility] Active Low Anxiety 2017- M INGREDI 1-13 Anderso 00:00: n 00 [facility] Active Other 2017- AL [facility] 1-13 Anderso 00:00: n 00 [facility] Active Other 2017- AL [facility] 1-13 Anderso 00:00: n 00 [facility] Active Low Anxiety 2017- M [facility]I 1-13 Anderso 00:00: n 00 [facility] Active Other 2017- AL [facility] 1-13 Anderso 00:00: n 00 [facility] Active Low Anxiety 2017- M [facility]GR[facility]I 1-13 Anderso 00:00: n 00 [facility] Active Low Anxiety 2017- M INGREDI 1-13 Anderso 00:00: n 00 [facility] Active Other 2017- AL [facility] 1-13 Anderso 00:00: n 00 [facility] Active Low Anxiety 2017- M INGREDI 1-13 Anderso 00:00: n 00 [facility] Active Other 2017- AL [facility] 1-13 Anderso 00:00: n 00 [facility] Active Low Anxiety 2017- M INGREDI 1-13 Anderso 00:00: n 00 [facility] Active Other 2017- AL [facility] 1-13 Anderso 00:00: n 00 [facility] Active Low Anxiety 2017- M [facility]GR[facility]I 1-13 Anderso 00:00: n 00 [facility] Active Other 2017- AL [facility]I 1-13 Anderso 00:00: n 00 [facility] Active Low Anxiety 2017- MD M [facility]GR[facility]I 1-13 Anderso 00:00: n 00 [facility] Active Other 2017- AL [facility]GREDI 1-13 Anderso 00:00: n 00 [facility] Active Low Anxiety 2017- MD M [facility]GREDI 1-13 Anderso 00:00: n 00 [facility] Active Other 2017- AL [facility]GR[facility]I 1-13 Anderso 00:00: n 00 [facility] Active Low Anxiety 2017- MD M [facility]GREDI 1-13 Anderso 00:00: n 00 [facility] Active Other 2017- AL [facility]GR[facility]I 1-13 Anderso 00:00: n 00 [facility] Active Low Anxiety 2017- M INGREDI 1-13 Anderso 00:00: n 00 [facility] Active Other 2017- AL [facility]GR[facility]I 1-13 Anderso 00:00: n 00 [facility] Active Low Anxiety 2017- M INGREDI 1-13 Anderso 00:00: n 00 [facility] Active Other 2017- AL [facility]GR[facility]I 1-13 Anderso 00:00: n 00 [facility] Active Other 2017- AL [facility]GR[facility]I 1-13 Anderso 00:00: n 00 [facility] Active Low Anxiety 2017- M INGREDI 1-13 Anderso 00:00: n 00 [facility] Active Other 2017- AL [facility]GREDI 1-13 Anderso 00:00: n 00 [facility] Active Low Anxiety 2017- M INGREDI 1-13 Anderso 00:00: n 00 [facility] Active Low Anxiety 2017- M INGREDI 1-13 Anderso 00:00: n 00 [facility] Active Other 2017- AL [facility]GREDI 1-13 Anderso 00:00: n 00 [facility] Active Low Anxiety 2017- M INGREDI 1-13 Anderso 00:00: n 00 [facility] Active Other 2017- AL [facility]GREDI 1-13 Anderso 00:00: n 00 [facility] Active Low Anxiety 2017- MD [facility] 1-13 Anderso 00:00: n 00 [facility] Active Other 2017- AL [facility]GR[facility]I 1-13 Anderso 00:00: n 00 [facility] Active Low Anxiety 2017- M INGREDI 1-13 Anderso 00:00: n 00 [facility] Active Other 2017- AL [facility]GREDI 1-13 Anderso 00:00: n 00 [facility] Active Low Anxiety 2017- M INGREDI 1-13 Anderso 00:00: n 00 [facility] Active Other 2017- AL [facility]GR[facility]I 1-13 Anderso 00:00: n 00 [facility] Active Low Anxiety 2017- M INGREDI 1-13 Anderso 00:00: n 00 [facility] Active Other 2017- AL [facility]I 1-13 Anderso 00:00: n 00 [facility] Active Low Anxiety 2017- MD [facility] 1-13 Anderso 00:00: n 00 [facility] Active Other 2017- AL [facility]I 1-13 Anderso 00:00: n 00 [facility] Active Low Anxiety 2017- MD [facility] 1-13 Anderso 00:00: n 00 [facility] Active Other 2017- AL [facility]GR[facility]I 1-13 Anderso 00:00: n 00 [facility] Active Low Anxiety 2017- MD [facility] 1-13 Anderso 00:00: n 00 [facility] Active Other 2017- MD [facility] 1-13 Anderso 00:00: n 00 [facility] Active Other 2017- AL [facility]GREDI 1-13 Anderso 00:00: n 00 [facility] Active Low Anxiety 2017- MD [facility] 1-13 Anderso 00:00: n 00 [facility] Active Other 2017- AL [facility]GR[facility]I 1-13 Anderso 00:00: n 00 [facility] Active Low Anxiety 2017- MD [facility] 1-13 Anderso 00:00: n 00 [facility] Active Low Anxiety 2017- MD [facility] 1-13 Anderso 00:00: n 00 [facility] Active Other 2017- MD [facility] 1-13 Anderso 00:00: n 00 [facility] Active Low Anxiety 2017- MD [facility] 1-13 Anderso 00:00: n 00 [facility] Active Other 2017- AL [facility]GR[facility]I 1-13 Anderso 00:00: n 00 [facility] Active Low Anxiety 2017- MD [facility] 1-13 Anderso 00:00: n 00 [facility] Active Other 2017- AL [facility]GR[facility]I 1-13 Anderso 00:00: n 00 [facility] Active Low Anxiety 2017- MD [facility] 1-13 Anderso 00:00: n 00 [facility] Active Other 2017- AL [facility]GR[facility]I 1-13 Anderso 00:00: n 00 [facility] Active Low Anxiety 2017- MD [facility] 1-13 Anderso 00:00: n 00 [facility] Active Other 2017- AL [facility]GREDI 1-13 Anderso 00:00: n 00 [facility] Active Low Anxiety 2017- MD [facility] 1-13 Anderso 00:00: n 00 [facility] Active Other 2017- AL [facility]GR[facility]I 1-13 Anderso 00:00: n 00 [facility] Active Low Anxiety 2017- MD [facility] 1-13 Anderso 00:00: n 00 [facility] Active Other 2017- AL [facility]GREDI 1-13 Anderso 00:00: n 00 [facility] Active Low Anxiety 2017- MD [facility] 1-13 Anderso 00:00: n 00 [facility] Active Other 2017- AL [facility]GR[facility]I 1-13 Anderso 00:00: n 00 [facility] Active Low Anxiety 2017- MD [facility] 1-13 Anderso 00:00: n 00 [facility] Active Other 2017- MD [facility] 1-13 Anderso 00:00: n 00 [facility] Active Other 2017- AL [facility]GREDI 1-13 Anderso 00:00: n 00 [facility] Active Low Anxiety 2017- MD [facility] 1-13 Anderso 00:00: n 00 [facility] Active Other 2017- MD [facility] 1-13 Anderso 00:00: n 00 [facility] Active Low Anxiety 2017- MD [facility] 1-13 Anderso 00:00: n 00 [facility] Active Low Anxiety 2017- MD [facility] 1-13 Anderso 00:00: n 00 [facility] Active Other 2017- AL INGREDI 1-13 Anderso 00:00: n 00 [facility] Active Low Anxiety 2017- M INGREDI 1-13 Anderso 00:00: n 00 [facility] Active Other 2017- AL INGREDI 1-13 Anderso 00:00: n 00 [facility] Active Low Anxiety 2017- M INGREDI 1-13 Anderso 00:00: n 00 [facility] Active Other 2017- AL [facility]GREDI 1-13 Anderso 00:00: n 00 [facility] Active Low Anxiety 2017- M INGREDI 1-13 Anderso 00:00: n 00 [facility] Active Other 2017- AL [facility]GR[facility]I 1-13 Anderso 00:00: n 00 [facility] Active Low Anxiety 2017- MD [facility] 1-13 Anderso 00:00: n 00 [facility] Active Other 2017- AL INGREDI 1-13 Anderso 00:00: n 00 [facility] Active Low Anxiety 2017- M INGREDI 1-13 Anderso 00:00: n 00 [facility] Active Other 2017- AL INGREDI 1-13 Anderso 00:00: n 00 [facility] Active Low Anxiety 2017- MD [facility] 1-13 Anderso 00:00: n 00 [facility] Active Other 2017- AL INGREDI 1-13 Anderso 00:00: n 00 [facility] Active Low Anxiety 2017- M INGREDI 1-13 Anderso 00:00: n 00 [facility] Active Other 2017- AL [facility]GR[facility]I 1-13 Anderso 00:00: n 00 [facility] Active Other 2017- AL [facility]GREDI 1-13 Anderso 00:00: n 00 [facility] Active Low Anxiety 2017- MD [facility] 1-13 Anderso 00:00: n 00 [facility] Active Other 2017- AL [facility]GREDI 1-13 Anderso 00:00: n 00 [facility] Active Low Anxiety 2017- MD [facility] 1-13 Anderso 00:00: n 00 [facility] Active Low Anxiety 2017- M INGREDI 1-13 Anderso 00:00: n 00 [facility] Active Other 2017- AL [facility]GREDI 1-13 Anderso 00:00: n 00 [facility] Active Low Anxiety 2017- M INGREDI 1-13 Anderso 00:00: n 00 [facility] Active Other 2017- AL [facility]GREDI 1-13 Anderso 00:00: n 00 [facility] Active Low Anxiety 2017- M INGREDI 1-13 Anderso 00:00: n 00 [facility] Active Other 2017- AL [facility]GREDI 1-13 Anderso 00:00: n 00 [facility] Active Low Anxiety 2017- M INGREDI 1-13 Anderso 00:00: n 00 [facility] Active Other 2017- AL INGR[facility]I 1-13 Anderso 00:00: n 00 [facility] Active Low Anxiety 2017- M INGREDI 1-13 Anderso 00:00: n 00 [facility] Active Other 2017- AL INGREDI 1-13 Anderso 00:00: n 00 [facility] Active Low Anxiety 2017- M INGREDI 1-13 Anderso 00:00: n 00 [facility] Active Other 2017- AL INGREDI 1-13 Anderso 00:00: n 00 [facility] Active Low Anxiety 2017- MD [facility] 1-13 Anderso 00:00: n 00 [facility] Active Other 2017- AL INGREDI 1-13 Anderso 00:00: n 00 [facility] Active Low Anxiety 2017- M INGREDI 1-13 Anderso 00:00: n 00 [facility] Active Other 2017- AL INGR[facility]I 1-13 Anderso 00:00: n 00 [facility] Active Low Anxiety 2017- MD [facility] 1-13 Anderso 00:00: n 00 [facility] Active Other 2017- AL INGREDI 1-13 Anderso 00:00: n 00 [facility] Active Other 2017- AL INGREDI 1-13 Anderso 00:00: n 00 [facility] Active Low Anxiety 2017- MD M [facility]GREDI 1-13 Anderso 00:00: n 00 [facility] Active Low Anxiety 2017- MD M INGREDI 1-13 Anderso 00:00: n 00 [facility] Active Other 2017- AL INGREDI 1-13 Anderso 00:00: n 00 [facility] Active Low Anxiety 2017- MD M [facility]GREDI 1-13 Anderso 00:00: n 00 [facility] Active Other 2017- AL INGREDI 1-13 Anderso 00:00: n 00 [facility] Active Low Anxiety 2017- MD M [facility]GREDI 1-13 Anderso 00:00: n 00 [facility] Active Other 2017- AL INGREDI 1-13 Anderso 00:00: n 00 [facility] Active Low Anxiety 2017- M INGREDI 1-13 Anderso 00:00: n 00 [facility] Active Other 2017- AL INGREDI 1-13 Anderso 00:00: n 00 [facility] Active Low Anxiety 2017- M INGREDI 1-13 Anderso 00:00: n 00 [facility] Active Other 2017- AL INGREDI 1-13 Anderso 00:00: n 00 [facility] Active Low Anxiety 2017- M INGREDI 1-13 Anderso 00:00: n 00 [facility] Active Other 2017- AL INGREDI 1-13 Anderso 00:00: n 00 [facility] Active Low Anxiety 2017- M INGREDI 1-13 Anderso 00:00: n 00 [facility] Active Other 2017- AL INGREDI 1-13 Anderso 00:00: n 00 [facility] Active Low Anxiety 2017- M INGREDI 1-13 Anderso 00:00: n 00 [facility] Active Other 2017- AL INGREDI 1-13 Anderso 00:00: n 00 [facility] Active Low Anxiety 2017- M INGREDI 1-13 Anderso 00:00: n 00 [facility] Active Other 2017- AL INGREDI 1-13 Anderso 00:00: n 00 [facility] Active Other 2017- AL INGREDI 1-13 Anderso 00:00: n 00 [facility] Active Low Anxiety 2017- MD [facility] 1-13 Anderso 00:00: n 00 [facility] Active Other 2017- AL INGREDI 1-13 Anderso 00:00: n 00 [facility] Active Low Anxiety 2017- MD M INGREDI 1-13 Anderso 00:00: n 00 [facility] Active Low Anxiety 2017- MD M INGREDI 1-13 Anderso 00:00: n 00 [facility] Active Other 2017- AL INGREDI 1-13 Anderso 00:00: n 00 [facility] Active Low Anxiety 2017- M INGREDI 1-13 Anderso 00:00: n 00 [facility] Active Other 2017- AL INGREDI 1-13 Anderso 00:00: n 00 [facility] Active Low Anxiety 2017- MD [facility] 1-13 Anderso 00:00: n 00 [facility] Active Other 2017- AL INGREDI 1-13 Anderso 00:00: n 00 [facility] Active Low Anxiety 2017- M INGREDI 1-13 Anderso 00:00: n 00 [facility] Active Other 2017- AL INGREDI 1-13 Anderso 00:00: n 00 [facility] Active Other 2017- AL INGREDI 1-13 Anderso 00:00: n 00 [facility] Active Low Anxiety 2017- MD [facility]y [facility]I 1-13 Anderso 00:00: n 00 [facility] Active Other 2017- AL INGREDI 1-13 Anderso 00:00: n 00 [facility] Active Low Anxiety 2017- M INGREDI 1-13 Anderso 00:00: n 00 [facility] Active Other 2017- AL INGREDI 1-13 Anderso 00:00: n 00 [facility] Active Low Anxiety 2017- M INGREDI 1-13 Anderso 00:00: n 00 [facility] Active Other 2017- AL INGREDI 1-13 Anderso 00:00: n 00 [facility] Active Low Anxiety 2017- MD Dey [facility]I 1-13 Anderso 00:00: n 00 [facility] Active Other 2017- AL INGREDI 1-13 Anderso 00:00: n 00 [facility] Active Other 2017- AL INGREDI 1-13 Anderso 00:00: n 00 [facility] Active Low Anxiety 2017- MD Dey [facility]GR[facility]I 1-13 Anderso 00:00: n 00 [facility] Active Other 2017- AL INGREDI 1-13 Anderso 00:00: n 00 [facility] Active Low Anxiety 2017- MD Dey [facility]GR[facility]I 1-13 Anderso 00:00: n 00 [facility] Active Low Anxiety 2017- M INGREDI 1-13 Anderso 00:00: n 00 [facility] Active Other 2017- AL INGREDI 1-13 Anderso 00:00: n 00 [facility] Active Low Anxiety 2017- MD Dey [facility]GR[facility]I 1-13 Anderso 00:00: n 00 [facility] Active Other 2017- AL INGREDI 1-13 Anderso 00:00: n 00 [facility] Active Low Anxiety 2017- MD Dey INGR[facility]I 1-13 Anderso 00:00: n 00 [facility] Active Other 2017- AL INGREDI 1-13 Anderso 00:00: n 00 [facility] Active Low Anxiety 2017- MD Dey [facility]GR[facility]I 1-13 Anderso 00:00: n 00 [facility] Active Other 2017- AL INGREDI 1-13 Anderso 00:00: n 00 [facility] Active Low Anxiety 2017- MD Dey INGR[facility]I 1-13 Anderso 00:00: n 00 [facility] Active Other 2017- MD [facility] 1-13 Anderso 00:00: n 00 [facility] Active Low Anxiety 2017- MD Dey INGR[facility]I 1-13 Anderso 00:00: n 00 [facility] Active Other 2017- AL INGREDI 1-13 Anderso 00:00: n 00 [facility] Active Low Anxiety 2017- MD Dey [facility]GR[facility]I 1-13 Anderso 00:00: n 00 [facility] Active Other 2017- MD [facility] 1-13 Anderso 00:00: n 00 [facility] Active Low Anxiety 2017- MD Dey INGR[facility]I 1-13 Anderso 00:00: n 00 [facility] Active Other 2017- MD AL INGREDI 1-13 Anderso 00:00: n 00 [facility] Active Low Anxiety 2017- M INGREDI 1-13 Anderso 00:00: n 00 [facility] Active Other 2017- AL INGREDI 1-13 Anderso 00:00: n 00 [facility] Active Other 2017- AL INGREDI 1-13 Anderso 00:00: n 00 [facility] Active Low Anxiety 2017- MD Dey [facility]I 1-13 Anderso 00:00: n 00 [facility] Active Other 2017- AL INGREDI 1-13 Anderso 00:00: n 00 [facility] Active Low Anxiety 2017- MD [facility]y [facility] 1-13 Anderso 00:00: n 00 [facility] Active Low Anxiety 2017- MD [facility]y [facility]GR[facility]I 1-13 Anderso 00:00: n 00 [facility] Active Low Anxiety 2017- MD [facility]y [facility]GR[facility]I 1-13 Anderso 00:00: n 00 [facility] Active Other 2017- AL INGREDI 1-13 Anderso 00:00: n 00 [facility] Active Low Anxiety 2017- MD Dey [facility]GR[facility]I 1-13 Anderso 00:00: n 00 [facility] Active Other 2017- MD [facility] 1-13 Anderso 00:00: n 00 [facility] Active Low Anxiety 2017- MD Dey INGR[facility]I 1-13 Anderso 00:00: n 00 [facility] Active Other 2017- AL INGREDI 1-13 Anderso 00:00: n 00 [facility] Active Low Anxiety 2017- MD Dey [facility]GR[facility]I 1-13 Anderso 00:00: n 00 [facility] Active Other 2017- AL INGREDI 1-13 Anderso 00:00: n 00 [facility] Active Low Anxiety 2017- MD Dey INGR[facility]I 1-13 Anderso 00:00: n 00 [facility] Active Other 2017- MD [facility] 1-13 Anderso 00:00: n 00 [facility] Active Low Anxiety 2017- MD Dey INGR[facility]I 1-13 Anderso 00:00: n 00 [facility] Active Other 2017- MD [facility] 1-13 Anderso 00:00: n 00 [facility] Active Low Anxiety 2017- MD Dey INGR[facility]I 1-13 Anderso 00:00: n 00 [facility] Active Other 2017- AL INGREDI 1-13 Anderso 00:00: n 00 [facility] Active Low Anxiety 2017- M INGREDI 1-13 Anderso 00:00: n 00 [facility] Active Other 2017- AL INGREDI 1-13 Anderso 00:00: n 00 [facility] Active Other 2017- AL INGREDI 1-13 Anderso 00:00: n 00 [facility] [employer]UG Active Low Anxiety 2017- M INGREDI 1-13 Anderso 00:00: n 00 THIMEROS DRUG Active Other 2017- AL INGREDI 1-13 Anderso 00:00: n 00 [facility] [employer]UG Active Low Anxiety 2017- MD Dey INGREDI 1-13 Anderso 00:00: n 00 [facility] [employer]UG Active Low Anxiety 2017- MD Dey INGREDI 1-13 Anderso 00:00: n 00 THIMEROS DRUG Active Other 2017- AL INGREDI 1-13 Anderso 00:00: n 00 [facility] [employer]UG Active Low Anxiety 2017- M INGREDI 1-13 Anderso 00:00: n 00 THIMEROS DRUG Active Other 2017- AL INGREDI 1-13 Anderso 00:00: n 00 [facility] [employer]UG Active Low Anxiety 2017- MD Dey INGREDI 1-13 Anderso 00:00: n 00 THIMEROS DRUG Active Other 2017- AL INGREDI 1-13 Anderso 00:00: n 00 [facility] [employer]UG Active Low Anxiety 2017- M INGREDI 1-13 Anderso 00:00: n 00 THIMEROS DRUG Active Other 2017- AL INGREDI 1-13 Anderso 00:00: n 00 [facility] [employer]UG Active Low Anxiety 2017- MD Dey INGREDI 1-13 Anderso 00:00: n 00 THIMEROS DRUG Active Other 2017- AL INGREDI 1-13 Anderso 00:00: n 00 [facility] [employer]UG Active Low Anxiety 2017- MD Dey INGREDI 1-13 Anderso 00:00: n 00 THIMEROS DRUG Active Other 2017- MD AL INGREDI 1-13 Anderso 00:00: n 00 [facility] [employer]UG Active Low Anxiety 2017- M INGREDI 1-13 Anderso 00:00: n 00 THIMEROS DRUG Active Other 2017- AL INGREDI 1-13 Anderso 00:00: n 00 [facility] [employer]UG Active Low Anxiety 2017- MD Dey INGREDI 1-13 Anderso 00:00: n 00 THIMEROS DRUG Active Other 2017- AL INGREDI 1-13 Anderso 00:00: n 00 THIMEROS DRUG Active Other 2017- AL INGREDI 1-13 Anderso 00:00: n 00 [facility] [employer]UG Active Low Anxiety 2017- MD Dey INGREDI 1-13 Anderso 00:00: n 00 THIMEROS DRUG Active Other 2017- AL INGREDI 1-13 Anderso 00:00: n 00 [facility] [employer]UG Active Low Anxiety 2017- MD Dey INGREDI 1-13 Anderso 00:00: n 00 [facility] [employer]UG Active Low Anxiety 2017- MD Dey INGREDI 1-13 Anderso 00:00: n 00 THIMEROS DRUG Active Other 2017- AL INGREDI 1-13 Anderso 00:00: n 00 [facility] [employer]UG Active Low Anxiety 2017- MD Dey INGREDI 1-13 Anderso 00:00: n 00 THIMEROS DRUG Active Other 2017- MD [place] INGREDI 1-13 Anderso 00:00: n 00 [facility]AZ[facility] [employer]UG Active Low Anxiety 2017- MD Dey INGREDI 1-13 Anderso 00:00: n 00 THIMEROS DRUG Active Other 2017- MD [place] INGREDI 1-13 Anderso 00:00: n 00 [facility]AZ[facility] [employer]UG Active Low Anxiety 2017- MD Dey INGREDI 1-13 Anderso 00:00: n 00 THIMEROS DRUG Active Other 2017- AL INGREDI 1-13 Anderso 00:00: n 00 [facility]AZ[facility] [employer]UG Active Low Anxiety 2017- MD Dey INGREDI 1-13 Anderso 00:00: n 00 THIMEROS DRUG Active Other 2017- MD [place] INGREDI 1-13 Anderso 00:00: n 00 [facility]AZ[facility] [employer]UG Active Low Anxiety 2017- MD Dey INGREDI 1-13 Anderso 00:00: n 00 THIMEROS DRUG Active Other 2017- AL INGREDI 1-13 Anderso 00:00: n 00 [facility]AZ[facility] [employer]UG Active Low Anxiety 2017- M INGREDI 1-13 Anderso 00:00: n 00 THIMEROS DRUG Active Other 2017- AL INGREDI 1-13 Anderso 00:00: n 00 [facility] Active Low Anxiety 2017- M INGREDI 1-13 Anderso 00:00: n 00 [facility] DRUG Active Other 2017- AL INGREDI 1-13 Anderso 00:00: n 00 [facility] DRUG Active Other 2017- AL INGREDI 1-13 Anderso 00:00: n 00 [facility]UG Active Low Anxiety 2017- MD [place] INGREDI 1-13 Anderso 00:00: n 00 [facility] DRUG Active Other 2017- AL INGREDI 1-13 Anderso 00:00: n 00 [facility] Active Low Anxiety 2017- MD Dey INGREDI 1-13 Anderso 00:00: n 00 [facility]UG Active Low Anxiety 2017- MD Dey INGREDI 1-13 Anderso 00:00: n 00 [facility] DRUG Active Other 2017- AL INGREDI 1-13 Anderso 00:00: n 00 [facility]UG Active Low Anxiety 2017- MD Dey INGREDI 1-13 Anderso 00:00: n 00 [facility] DRUG Active Other 2017- AL INGREDI 1-13 Anderso 00:00: n 00 [facility]UG Active Low Anxiety 2017- MD Dey INGREDI 1-13 Anderso 00:00: n 00 [facility] DRUG Active Other 2017- AL INGREDI 1-13 Anderso 00:00: n 00 [facility]UG Active Low Anxiety 2017- M INGREDI 1-13 Anderso 00:00: n 00 [facility] DRUG Active Other 2017- AL INGREDI 1-13 Anderso 00:00: n 00 [facility]UG Active Low Anxiety 2017- MD Dey INGREDI 1-13 Anderso 00:00: n 00 [facility] DRUG Active Other 2017- MD [place] INGREDI 1-13 Anderso 00:00: n 00 [facility]UG Active Low Anxiety 2017- MD Dey INGREDI 1-13 Anderso 00:00: n 00 [facility] DRUG Active Other 2017- AL INGREDI 1-13 Anderso 00:00: n 00 [facility]UG Active Low Anxiety 2017- M INGREDI 1-13 Anderso 00:00: n 00 [facility] DRUG Active Other 2017- AL INGREDI 1-13 Anderso 00:00: n 00 [facility]UG Active Low Anxiety 2017- M INGREDI 1-13 Anderso 00:00: n 00 [facility] DRUG Active Other 2017- AL INGREDI 1-13 Anderso 00:00: n 00 [facility] DRUG Active Other 2017- AL INGREDI 1-13 Anderso 00:00: n 00 [facility]UG Active Low Anxiety 2017- MD Dey INGREDI 1-13 Anderso 00:00: n 00 [facility] DRUG Active Other 2017- AL INGREDI 1-13 Anderso 00:00: n 00 [facility]UG Active Low Anxiety 2017- MD Dey INGREDI 1-13 Anderso 00:00: n 00 [facility]UG Active Low Anxiety 2017- MD Dey INGREDI 1-13 Anderso 00:00: n 00 [facility] DRUG Active Other 2017- AL INGREDI 1-13 Anderso 00:00: n 00 [facility]UG Active Low Anxiety 2017- MD Dey INGREDI 1-13 Anderso 00:00: n 00 [facility] DRUG Active Other 2017- AL INGREDI 1-13 Anderso 00:00: n 00 [facility]UG Active Low Anxiety 2017- MD Dey INGREDI 1-13 Anderso 00:00: n 00 [facility] DRUG Active Other 2017- AL INGREDI 1-13 Anderso 00:00: n 00 [facility]UG Active Low Anxiety 2017- M INGREDI 1-13 Anderso 00:00: n 00 [facility] DRUG Active Other 2017- AL INGREDI 1-13 Anderso 00:00: n 00 [facility]UG Active Low Anxiety 2017- MD Dey INGREDI 1-13 Anderso 00:00: n 00 [facility] DRUG Active Other 2017- MD [place] INGREDI 1-13 Anderso 00:00: n 00 [facility]UG Active Low Anxiety 2017- MD Dey INGREDI 1-13 Anderso 00:00: n 00 [facility] DRUG Active Other 2017- AL INGREDI 1-13 Anderso 00:00: n 00 [facility]UG Active Low Anxiety 2017- MD Dey INGREDI 1-13 Anderso 00:00: n 00 [facility] DRUG Active Other 2017- AL INGREDI 1-13 Anderso 00:00: n 00 [facility]UG Active Low Anxiety 2017- M INGREDI 1-13 Anderso 00:00: n 00 [facility] DRUG Active Other 2017- AL INGREDI 1-13 Anderso 00:00: n 00 [facility] DRUG Active Other 2017- AL INGREDI 1-13 Anderso 00:00: n 00 [facility] Active Low Anxiety 2017- MD Dey INGREDI 1-13 Anderso 00:00: n 00 [facility] DRUG Active Other 2017- AL INGREDI 1-13 Anderso 00:00: n 00 [facility]UG Active Low Anxiety 2017- MD Dey INGREDI 1-13 Anderso 00:00: n 00 [facility]UG Active Low Anxiety 2017- MD Dey INGREDI 1-13 Anderso 00:00: n 00 [facility] DRUG Active Other 2017- AL INGREDI 1-13 Anderso 00:00: n 00 [facility]UG Active Low Anxiety 2017- MD Dey INGREDI 1-13 Anderso 00:00: n 00 [facility] DRUG Active Other 2017- AL INGREDI 1-13 Anderso 00:00: n 00 [facility]UG Active Low Anxiety 2017- MD Dey INGREDI 1-13 Anderso 00:00: n 00 [facility] DRUG Active Other 2017- AL INGREDI 1-13 Anderso 00:00: n 00 [facility]UG Active Low Anxiety 2017- MD Dey INGREDI 1-13 Anderso 00:00: n 00 [facility] DRUG Active Other 2017- MD [place] INGREDI 1-13 Anderso 00:00: n 00 [facility]UG Active Low Anxiety 2017- MD Dey INGREDI 1-13 Anderso 00:00: n 00 [facility] DRUG Active Other 2017- MD [place] INGREDI 1-13 Anderso 00:00: n 00 [facility]UG Active Low Anxiety 2017- MD Dey INGREDI 1-13 Anderso 00:00: n 00 [facility] DRUG Active Other 2017- AL INGREDI 1-13 Anderso 00:00: n 00 [facility]UG Active Low Anxiety 2017- M INGREDI 1-13 Anderso 00:00: n 00 [facility] DRUG Active Other 2017- AL INGREDI 1-13 Anderso 00:00: n 00 [facility] DRUG Active Other 2017- AL INGREDI 1-13 Anderso 00:00: n 00 [facility]UG Active Low Anxiety 2017- M INGREDI 1-13 Anderso 00:00: n 00 [facility] DRUG Active Other 2017- AL INGREDI 1-13 Anderso 00:00: n 00 [facility]UG Active Low Anxiety 2017- MD Dey INGREDI 1-13 Anderso 00:00: n 00 [facility]UG Active Low Anxiety 2017- MD Dey INGREDI 1-13 Anderso 00:00: n 00 [facility] DRUG Active Other 2017- AL INGREDI 1-13 Anderso 00:00: n 00 [facility]UG Active Low Anxiety 2017- MD Dey INGREDI 1-13 Anderso 00:00: n 00 [facility] DRUG Active Other 2017- AL INGREDI 1-13 Anderso 00:00: n 00 [facility]UG Active Low Anxiety 2017- MD Dey INGREDI 1-13 Anderso 00:00: n 00 [facility] DRUG Active Other 2017- AL INGREDI 1-13 Anderso 00:00: n 00 [facility]UG Active Low Anxiety 2017- MD Dey INGREDI 1-13 Anderso 00:00: n 00 [facility] DRUG Active Other 2017- AL INGREDI 1-13 Anderso 00:00: n 00 [facility]UG Active Low Anxiety 2017- MD Dey INGREDI 1-13 Anderso 00:00: n 00 [facility] DRUG Active Other 2017- MD [place] INGREDI 1-13 Anderso 00:00: n 00 [facility]UG Active Low Anxiety 2017- MD Dey INGREDI 1-13 Anderso 00:00: n 00 [facility] DRUG Active Other 2017- MD AL INGREDI 1-13 Anderso 00:00: n 00 [facility]UG Active Low Anxiety 2017- M INGREDI 1-13 Anderso 00:00: n 00 [facility] DRUG Active Other 2017- AL INGREDI 1-13 Anderso 00:00: n 00 [facility]UG Active Low Anxiety 2017- M INGREDI 1-13 Anderso 00:00: n 00 [facility] DRUG Active Other 2017- AL INGREDI 1-13 Anderso 00:00: n 00 [facility]UG Active Low Anxiety 2017- M INGREDI 1-13 Anderso 00:00: n 00 [facility] DRUG Active Other 2017- AL INGREDI 1-13 Anderso 00:00: n 00 [facility] DRUG Active Other 2017- AL INGREDI 1-13 Anderso 00:00: n 00 [facility]UG Active Low Anxiety 2017- MD Dey INGREDI 1-13 Anderso 00:00: n 00 [facility] DRUG Active Other 2017- AL INGREDI 1-13 Anderso 00:00: n 00 [facility]UG Active Low Anxiety 2017- MD Dey INGREDI 1-13 Anderso 00:00: n 00 [facility]UG Active Low Anxiety 2017- MD Dey INGREDI 1-13 Anderso 00:00: n 00 [facility] DRUG Active Other 2017- MD [place] INGREDI 1-13 Anderso 00:00: n 00 [facility]UG Active Low Anxiety 2017- MD Dey INGREDI 1-13 Anderso 00:00: n 00 [facility] DRUG Active Other 2017- AL INGREDI 1-13 Anderso 00:00: n 00 [facility]UG Active Low Anxiety 2017- MD Dey INGREDI 1-13 Anderso 00:00: n 00 [facility] DRUG Active Other 2017- AL INGREDI 1-13 Anderso 00:00: n 00 [facility]UG Active Low Anxiety 2017- MD Dey INGREDI 1-13 Anderso 00:00: n 00 [facility] DRUG Active Other 2017- MD [place] INGREDI 1-13 Anderso 00:00: n 00 [facility]UG Active Low Anxiety 2017- MD Dey INGREDI 1-13 Anderso 00:00: n 00 [facility] DRUG Active Unknown-Cmnt 2016-05 Un dequan AL INGREDI 06-11 [facility] 00:00: [place] [facility] Active Other-Cmnt 2016-05 Univ ers M HCL INGREDI 06-11 ity of 00:00: [place] [facility] Active Other - See 2016-05 Depressi o Univers m Hcl ty to comments 06-11 n ity of adverse 00:00: [place] reaction 00 [facility] Active Anxiety 2016-05 Depressio Me thodi m ty to 06-[address] adverse 00:00: [facility] reaction 00 l s to drug [facility] Propensi Active Other (See 2016-05 Me thodi al ty to Comments) 06-11 st adverse 00:00: [facility] reaction 00 l s to drug [facility] Active Other (See 2016-05 Other Un dequan m ty to Comments) 06-11 reaction( ity of adverse 00:00: s): [place] reaction 00 Altered s Mental [facility] StatusDep n ressionDe [facility] pression[facility] epression Th[facility] Propensi Active Other (See 2016-05 Other Un dequan al ty to Comments) 06-11 reaction( ity of adverse 00:00: s): [place] reaction 00 Unknown - MD s See [facility] comments n 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 High Other 2016-05 E INGREDI 06-04 Anderso 00:00: n 00 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 High Other 2016-05 E INGREDI 06-04 Anderso 00:00: n 00 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 High Other 2016-05 E INGREDI 06-04 Anderso 00:00: n 00 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 High Other 2016- E INGREDI 06-04 Anderso 00:00: n 00 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 High Other 2016- E INGREDI 06-04 Anderso 00:00: n 00 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 High Other 2016- E INGREDI 06-04 Anderso 00:00: n 00 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 High Other 2016- E INGREDI 06-04 Anderso 00:00: n 00 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 High Other 2016- E INGREDI 06-04 Anderso 00:00: n 00 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 High Other 2017- MD E INGREDI 06-04 Anderso 00:00: n 00 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 High Other 2017- MD E INGREDI 06-04 Anderso 00:00: n 00 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 High Other 2017- MD E INGREDI 06-04 Anderso 00:00: n 00 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 High Other 2016-05 MD E INGREDI 06-04 Anderso 00:00: n 00 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 High Other 2016-05 MD E INGREDI 06-04 Anderso 00:00: n 00 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 High Other 2016- MD E INGREDI 06-04 Anderso 00:00: n 00 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 High Other 2016-05 MD E INGREDI 06-04 Anderso 00:00: n 00 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 High Other 2016-05 MD E INGREDI 06-04 Anderso 00:00: n 00 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 High Other 2016-05 MD E INGREDI 06-04 Anderso 00:00: n 00 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 High Other 2016-05 MD E INGREDI 06-04 Anderso 00:00: n 00 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 High Other 2016-05 MD E INGREDI 06-04 Anderso 00:00: n 00 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 High Other 2016-05 MD E INGREDI 06-04 Anderso 00:00: n 00 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 High Other 2016-05 MD E INGREDI 06-04 Anderso 00:00: n 00 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 High Other 2016- MD E INGREDI 06-04 Anderso 00:00: n 00 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 High Other 2017- MD E INGREDI 06-04 Anderso 00:00: n 00 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 High Other 2016- MD E INGREDI 06-04 Anderso 00:00: n 00 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 High Other 2016-05 MD E INGREDI 06-04 Anderso 00:00: n 00 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 High Other 2016- MD E INGREDI 06-04 Anderso 00:00: n 00 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 High Other 2016-05 MD E INGREDI 06-04 Anderso 00:00: n 00 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 High Other MD E INGREDI 06-04 Anderso 00:00: n 00 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 High Other 2017- MD E INGREDI 06-04 Anderso 00:00: n 00 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 High Other 2017- MD E INGREDI 06-04 Anderso 00:00: n 00 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 High Other 2016- MD E INGREDI 06-04 Anderso 00:00: n 00 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 High Other 2016- MD E INGREDI 06-04 Anderso 00:00: n 00 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 High Other 2016-05 MD E INGREDI 06-04 Anderso 00:00: n 00 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 High Other 2016-05 MD E INGREDI 06-04 Anderso 00:00: n 00 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 High Other 2016-05 MD E INGREDI 06-04 Anderso 00:00: n 00 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 High Other 2016-05 MD E INGREDI 06-04 Anderso 00:00: n 00 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 High Other 2016-05 MD E INGREDI 06-04 Anderso 00:00: n 00 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 High Other 2016-05 MD E INGREDI 06-04 Anderso 00:00: n 00 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 High Other 2016-05 MD E INGREDI 06-04 Anderso 00:00: n 00 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 High Other 2016-05 MD E INGREDI 06-04 Anderso 00:00: n 00 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 High Other 2016-05 MD E INGREDI 06-04 Anderso 00:00: n 00 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 High Other 2017- MD E INGREDI 06-04 Anderso 00:00: n 00 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 High Other 2016- MD E INGREDI 06-04 Anderso 00:00: n 00 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 High Other 2016- MD E INGREDI 06-04 Anderso 00:00: n 00 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 High Other 2016- MD E INGREDI 06-04 Anderso 00:00: n 00 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 High Other 2016- MD E INGREDI 06-04 Anderso 00:00: n 00 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 High Other 2016- MD E INGREDI 06-04 Anderso 00:00: n 00 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 High Other 2017- MD E INGREDI 06-04 Anderso 00:00: n 00 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 High Other 2017- MD E INGREDI 06-04 Anderso 00:00: n 00 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 High Other 2017- MD E INGREDI 06-04 Anderso 00:00: n 00 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 High Other 2016- MD E INGREDI 06-04 Anderso 00:00: n 00 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 High Other 2016- MD E INGREDI 06-04 Anderso 00:00: n 00 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 High Other 2016-05 MD E INGREDI 06-04 Anderso 00:00: n 00 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 High Other 2016- MD E INGREDI 06-04 Anderso 00:00: n 00 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 High Other 2016-05 MD E INGREDI 06-04 Anderso 00:00: n 00 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 High Other 2016-05 MD E INGREDI 06-04 Anderso 00:00: n 00 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 High Other 2016-05 MD E INGREDI 06-04 Anderso 00:00: n 00 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 High Other 2016- E INGREDI 06-04 Anderso 00:00: n 00 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 High Other 2016-05 MD E INGREDI 06-04 Anderso 00:00: n 00 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 High Other 2016-05 MD E INGREDI 06-04 Anderso 00:00: n 00 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 High Other 2017- E INGREDI 06-04 Anderso 00:00: n 00 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 High Other 2017- MD E INGREDI 06-04 Anderso 00:00: n 00 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 High Other 2016- E INGREDI 06-04 Anderso 00:00: n 00 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 High Other 2016- MD E INGREDI 06-04 Anderso 00:00: n 00 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 High Other 2016- MD E INGREDI 06-04 Anderso 00:00: n 00 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 High Other 2016- MD E INGREDI 06-04 Anderso 00:00: n 00 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 High Other 2017- MD E INGREDI 06-04 Anderso 00:00: n 00 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 High Other 2016- MD E INGREDI 06-04 Anderso 00:00: n 00 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 High Other 2017- MD E INGREDI 06-04 Anderso 00:00: n 00 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 High Other 2016-05 MD E INGREDI 06-04 Anderso 00:00: n 00 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 High Other 2016- MD E INGREDI 06-04 Anderso 00:00: n 00 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 High Other 2016- MD E INGREDI 06-04 Anderso 00:00: n 00 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 High Other 2016-05 MD E INGREDI 06-04 Anderso 00:00: n 00 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 High Other 2016-05 MD E INGREDI 06-04 Anderso 00:00: n 00 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 High Other 2016-05 MD E INGREDI 06-04 Anderso 00:00: n 00 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 High Other 2016-05 MD E INGREDI 06-04 Anderso 00:00: n 00 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 High Other 2016-05 E INGREDI 06-04 Anderso 00:00: n 00 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 High Other 2016- MD E INGREDI 06-04 Anderso 00:00: n 00 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 High Other 2016- MD E INGREDI 06-04 Anderso 00:00: n 00 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 High Other 2016-05 MD E INGREDI 06-04 Anderso 00:00: n 00 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 High Other 2016- MD E INGREDI 06-04 Anderso 00:00: n 00 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 High Other 2016- MD E INGREDI 06-04 Anderso 00:00: n 00 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 High Other 2016- MD E INGREDI 06-04 Anderso 00:00: n 00 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 High Other 2016- MD E INGREDI 06-04 Anderso 00:00: n 00 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 High Other 2016- MD E INGREDI 06-04 Anderso 00:00: n 00 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 High Other 2017- MD E INGREDI 06-04 Anderso 00:00: n 00 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 High Other 2017- MD E INGREDI 06-04 Anderso 00:00: n 00 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 High Other 2017- MD E INGREDI 06-04 Anderso 00:00: n 00 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 High Other 2016-05 MD E INGREDI 06-04 Anderso 00:00: n 00 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 High Other 2016- MD E INGREDI 06-04 Anderso 00:00: n 00 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 High Other 2016- MD E INGREDI 06-04 Anderso 00:00: n 00 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 High Other 2016-05 MD E INGREDI 06-04 Anderso 00:00: n 00 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 High Other 2016-05 MD E INGREDI 06-04 Anderso 00:00: n 00 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 High Other 2016-05 MD E INGREDI 06-04 Anderso 00:00: n 00 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 High Other 2016- MD E INGREDI 06-04 Anderso 00:00: n 00 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 High Other 2016- MD E INGREDI 06-04 Anderso 00:00: n 00 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 High Other 2016-05 MD E INGREDI 06-04 Anderso 00:00: n 00 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 High Other 2016- MD E INGREDI 06-04 Anderso 00:00: n 00 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 High Other 2016- MD E INGREDI 06-04 Anderso 00:00: n 00 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 High Other 2016- MD E INGREDI 06-04 Anderso 00:00: n 00 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 High Other 2016- MD E INGREDI 06-04 Anderso 00:00: n 00 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 High Other 2016- MD E INGREDI 06-04 Anderso 00:00: n 00 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 High Other 2016- MD E INGREDI 06-04 Anderso 00:00: n 00 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 High Other 2016- MD E INGREDI 06-04 Anderso 00:00: n 00 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 High Other 2017- MD E INGREDI 06-04 Anderso 00:00: n 00 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 High Other 2017- MD E INGREDI 06-04 Anderso 00:00: n 00 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 High Other 2017- MD E INGREDI 06-04 Anderso 00:00: n 00 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 High Other 2016- MD E INGREDI 06-04 Anderso 00:00: n 00 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 High Other 2016- MD E INGREDI 06-04 Anderso 00:00: n 00 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 High Other 2016- MD E INGREDI 06-04 Anderso 00:00: n 00 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 High Other 2016- MD E INGREDI 06-04 Anderso 00:00: n 00 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 High Other 2016-05 MD E INGREDI 06-04 Anderso 00:00: n 00 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 High Other 2016-05 MD E INGREDI 06-04 Anderso 00:00: n 00 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 High Other 2016-05 MD E INGREDI 06-04 Anderso 00:00: n 00 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 High Other 2016- MD E INGREDI 06-04 Anderso 00:00: n 00 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 High Other 2016-05 MD E INGREDI 06-04 Anderso 00:00: n 00 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 High Other 2016-05 MD E INGREDI 06-04 Anderso 00:00: n 00 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 High Other 2016- E INGREDI 06-04 Anderso 00:00: n 00 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 High Other 2017- MD E INGREDI 06-04 Anderso 00:00: n 00 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 High Other 2016- MD E INGREDI 06-04 Anderso 00:00: n 00 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 High Other 2016- MD E INGREDI 06-04 Anderso 00:00: n 00 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 High Other 2016- MD E INGREDI 06-04 Anderso 00:00: n 00 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 High Other 2016- MD E INGREDI 06-04 Anderso 00:00: n 00 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 High Other 2016- MD E INGREDI 06-04 Anderso 00:00: n 00 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 High Other 2016-05 MD E INGREDI 06-04 Anderso 00:00: n 00 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 High Other 2016-05 MD E INGREDI 06-04 Anderso 00:00: n 00 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 High Other 2016-05 MD E INGREDI 06-04 Anderso 00:00: n 00 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 High Other 2016-05 MD E INGREDI 06-04 Anderso 00:00: n 00 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 High Other 2016-05 MD E INGREDI 06-04 Anderso 00:00: n 00 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 High Other 2016-05 MD E INGREDI 06-04 Anderso 00:00: n 00 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 High Other 2016-05 MD E INGREDI 06-04 Anderso 00:00: n 00 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 High Other 2016-05 MD E INGREDI 06-04 Anderso 00:00: n 00 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 High Other 2016-05 MD E INGREDI 06-04 Anderso 00:00: n 00 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 High Other 2016-05 MD E INGREDI 06-04 Anderso 00:00: n 00 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 High Other 2016-05 MD E INGREDI 06-04 Anderso 00:00: n 00 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 High Other 2016-05 MD E INGREDI 06-04 Anderso 00:00: n 00 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 High Other 2016-05 MD E INGREDI 06-04 Anderso 00:00: n 00 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 High Other 2016-05 MD E INGREDI 06-04 Anderso 00:00: n 00 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 High Other 2016- MD E INGREDI 06-04 Anderso 00:00: n 00 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 High Other 2016- MD E INGREDI 06-04 Anderso 00:00: n 00 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 High Other 2016- MD E INGREDI 06-04 Anderso 00:00: n 00 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 High Other 2016- MD E INGREDI 06-04 Anderso 00:00: n 00 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 High Other 2016- MD E INGREDI 06-04 Anderso 00:00: n 00 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 High Other 2017- MD E INGREDI 06-04 Anderso 00:00: n 00 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 High Other 2016-05 MD E INGREDI 06-04 Anderso 00:00: n 00 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 High Other 2017 MD E INGREDI 06-04 Anderso 00:00: n 00 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 High Other 2016-05 MD E INGREDI 06-04 Anderso 00:00: n 00 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 High Other 2016-05 MD E INGREDI 06-04 Anderso 00:00: n 00 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 High Other 2016-05 MD E INGREDI 06-04 Anderso 00:00: n 00 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 High Other 2016-05 MD E INGREDI 06-04 Anderso 00:00: n 00 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 High Other 2016-05 MD E INGREDI 06-04 Anderso 00:00: n 00 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 High Other 2016-05 MD E INGREDI 06-04 Anderso 00:00: n 00 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 High Other 2016-05 MD E INGREDI 06-04 Anderso 00:00: n 00 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 High Other 2016-05 MD E INGREDI 06-04 Anderso 00:00: n 00 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 High Other 2016-05 MD E INGREDI 06-04 Anderso 00:00: n 00 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 High Other 2016-05 MD E INGREDI 06-04 Anderso 00:00: n 00 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 High Other 2016-05 MD E INGREDI 06-04 Anderso 00:00: n 00 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 High Other 2016-05 MD E INGREDI 06-04 Anderso 00:00: n 00 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 High Other 2016- MD E INGREDI 06-04 Anderso 00:00: n 00 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 High Other 2016- MD E INGREDI 06-04 Anderso 00:00: n 00 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 High Other 2016- MD E INGREDI 06-04 Anderso 00:00: n 00 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 High Other 2016- MD E INGREDI 06-04 Anderso 00:00: n 00 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 High Other 2017- MD E INGREDI 06-04 Anderso 00:00: n 00 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 High Other 2017- MD E INGREDI 06-04 Anderso 00:00: n 00 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 High Other 2017- MD E INGREDI 06-04 Anderso 00:00: n 00 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 High Other 2016-05 MD E INGREDI 06-04 Anderso 00:00: n 00 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 High Other 2016- MD E INGREDI 06-04 Anderso 00:00: n 00 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 High Other 2016- MD E INGREDI 06-04 Anderso 00:00: n 00 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 High Other 2016-05 MD E INGREDI 06-04 Anderso 00:00: n 00 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 High Other 2016-05 MD E INGREDI 06-04 Anderso 00:00: n 00 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 High Other 2016-05 MD E INGREDI 06-04 Anderso 00:00: n 00 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 High Other 2016-05 MD E INGREDI 06-04 Anderso 00:00: n 00 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 High Other 2016-05 MD E INGREDI 06-04 Anderso 00:00: n 00 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 High Other 2016-05 MD E INGREDI 06-04 Anderso 00:00: n 00 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 High Other 2016- MD E INGREDI 06-04 Anderso 00:00: n 00 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 High Other 2016- MD E INGREDI 06-04 Anderso 00:00: n 00 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 High Other 2016- MD E INGREDI 06-04 Anderso 00:00: n 00 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 High Other 2016- MD E INGREDI 06-04 Anderso 00:00: n 00 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 High Other 2016- MD E INGREDI 06-04 Anderso 00:00: n 00 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 High Other 2016- MD E INGREDI 06-04 Anderso 00:00: n 00 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 High Other 2016- MD E INGREDI 06-04 Anderso 00:00: n 00 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 High Other 2017- MD E INGREDI 06-04 Anderso 00:00: n 00 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 High Other 2017- MD E INGREDI 06-04 Anderso 00:00: n 00 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 High Other 2017- MD E INGREDI 06-04 Anderso 00:00: n 00 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 High Other 2017- MD E INGREDI 06-04 Anderso 00:00: n 00 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 High Other 2016- MD E INGREDI 06-04 Anderso 00:00: n 00 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 High Other 2016- MD E INGREDI 06-04 Anderso 00:00: n 00 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 High Other 2016- MD E INGREDI 06-04 Anderso 00:00: n 00 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 High Other 2016-05 MD E INGREDI 06-04 Anderso 00:00: n 00 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 High Other 2016-05 MD E INGREDI 06-04 Anderso 00:00: n 00 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 High Other 2016- MD E INGREDI 06-04 Anderso 00:00: n 00 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 High Other 2016-05 MD E INGREDI 06-04 Anderso 00:00: n 00 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 High Other 2016-05 MD E INGREDI 06-04 Anderso 00:00: n 00 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 High Other 2016-05 MD E INGREDI 06-04 Anderso 00:00: n 00 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 High Other 2016- MD E INGREDI 06-04 Anderso 00:00: n 00 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 High Other 2017- MD E INGREDI 06-04 Anderso 00:00: n 00 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 High Other 2016- MD E INGREDI 06-04 Anderso 00:00: n 00 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 High Other 2016- MD E INGREDI 06-04 Anderso 00:00: n 00 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 High Other 2016- MD E INGREDI 06-04 Anderso 00:00: n 00 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 High Other 2016- MD E INGREDI 06-04 Anderso 00:00: n 00 [place] [employer] Active High Other 2017- MD E INGREDI 06-04 Anderso 00:00: n 00 [place] [employer] Active High Other 2016-05 MD E INGREDI 06-04 Anderso 00:00: n 00 [place] [employer] Active High Other 2016- MD E INGREDI 06-04 Anderso 00:00: n 00 [place] [employer] Active High Other 2016-05 MD E INGREDI 06-04 Anderso 00:00: n 00 [employer] [employer] Active High Other 2016-05 MD E INGREDI 06-04 Anderso 00:00: n 00 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 High Other 2016-05 MD E INGREDI 06-04 Anderso 00:00: n 00 LIDOCAIN DRUG Active High Other 2016-05 MD E INGREDI 06-04 Anderso 00:00: n 00 LIDOCAIN DRUG Active High Other 2016-05 MD E INGREDI 06-04 Anderso 00:00: n 00 LIDOCAIN DRUG Active High Other 2016-05 MD E INGREDI 06-04 Anderso 00:00: n 00 LIDOCAIN 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 Active High Other 2016-05 MD E INGREDI 06-04 Anderso 00:00: n 00 LIDOCAIN DRUG Active High Other 2016-05 MD E INGREDI 06-04 Anderso 00:00: n 00 LIDOCAIN DRUG Active Other-Cmnt 2016-05 Univ ers E INGREDI 06-04 ity of 00:00: [place] [facility] Lidocain Propensi Active Swelling 2016-05 Burning, Me thodi e ty to 06-[address] adverse 00:00: [facility] reaction 00 irritatio l s to n drug Lidocain Propensi Active Swelling 2016-05 Burning, Un dequan e ty to 06-04 irritatio ity of adverse 00:00: Luis Li reaction 00 irritatio s [facility] ROSUVAST DRUG Active Other ATIN INGREDI 5-17 Anderso 00:00: n 00 ROSUVAST DRUG Active Other MD ATIN INGREDI 17 Anderso 00:00: n 00 ROSUVAST DRUG Active Other 2016- MD ATIN INGREDI 17 Anderso 00:00: n 00 ROSUVAST DRUG Active Other 2017-0 MD ATIN INGREDI 5-17 Anderso 00:00: n 00 ROSUVAST DRUG Active Other 2017-0 MD ATIN INGREDI 5-17 Anderso 00:00: n 00 ROSUVAST DRUG Active Other 2017-0 MD ATIN INGREDI 5-17 Anderso 00:00: n 00 ROSUVAST DRUG Active Other 2017-0 MD ATIN INGREDI 5-17 Anderso 00:00: n 00 ROSUVAST DRUG Active Other 2017-0 MD ATIN INGREDI 5-17 Anderso 00:00: n 00 ROSUVAST DRUG Active Other 2017-0 MD ATIN INGREDI 5-17 Anderso 00:00: n 00 ROSUVAST DRUG Active Other 2017-0 MD ATIN INGREDI 5-17 Anderso 00:00: n 00 ROSUVAST DRUG Active Other 2017-0 MD ATIN INGREDI 5-17 Anderso 00:00: n 00 ROSUVAST DRUG Active Other 2017-0 MD ATIN INGREDI 5-17 Anderso 00:00: n 00 ROSUVAST DRUG Active Other 2017-0 MD ATIN INGREDI 5-17 Anderso 00:00: n 00 ROSUVAST DRUG Active Other 2017-0 MD ATIN INGREDI 5-17 Anderso 00:00: n 00 ROSUVAST DRUG Active Other 2017-0 MD ATIN INGREDI 5-17 Anderso 00:00: n 00 ROSUVAST DRUG Active Other 2017-0 MD ATIN INGREDI 5-17 Anderso 00:00: n 00 ROSUVAST DRUG Active Other 2017-0 MD ATIN INGREDI 5-17 Anderso 00:00: n 00 ROSUVAST DRUG Active Other 2017-0 MD ATIN INGREDI 5-17 Anderso 00:00: n 00 ROSUVAST DRUG Active Other 2017-0 MD ATIN INGREDI 5-17 Anderso 00:00: n 00 ROSUVAST DRUG Active Other 2017-0 MD ATIN INGREDI 5-17 Anderso 00:00: n 00 ROSUVAST DRUG Active Other 2017-0 MD ATIN INGREDI 5-17 Anderso 00:00: n 00 ROSUVAST DRUG Active Other 2017-0 MD ATIN INGREDI 5-17 Anderso 00:00: n 00 ROSUVAST DRUG Active Other 2017-0 MD ATIN INGREDI 5-17 Anderso 00:00: n 00 ROSUVAST DRUG Active Other 2017-0 MD ATIN INGREDI 5-17 Anderso 00:00: n 00 ROSUVAST DRUG Active Other 2017-0 MD ATIN INGREDI 5-17 Anderso 00:00: n 00 ROSUVAST DRUG Active Other 2017-0 MD ATIN INGREDI 5-17 Anderso 00:00: n 00 ROSUVAST DRUG Active Other 2017-0 MD ATIN INGREDI 5-17 Anderso 00:00: n 00 ROSUVAST DRUG Active Other 2017-0 MD ATIN INGREDI 5-17 Anderso 00:00: n 00 ROSUVAST DRUG Active Other 2017-0 MD ATIN INGREDI 5-17 Anderso 00:00: n 00 ROSUVAST DRUG Active Other 2017-0 MD ATIN INGREDI 5-17 Anderso 00:00: n 00 ROSUVAST DRUG Active Other 2017-0 MD ATIN INGREDI 5-17 Anderso 00:00: n 00 ROSUVAST DRUG Active Other 2017-0 MD ATIN INGREDI 5-17 Anderso 00:00: n 00 ROSUVAST DRUG Active Other 2017-0 MD ATIN INGREDI 5-17 Anderso 00:00: n 00 ROSUVAST DRUG Active Other 2017-0 MD ATIN INGREDI 5-17 Anderso 00:00: n 00 ROSUVAST DRUG Active Other 2017-0 MD ATIN INGREDI 5-17 Anderso 00:00: n 00 ROSUVAST DRUG Active Other 2017-0 MD ATIN INGREDI 5-17 Anderso 00:00: n 00 ROSUVAST DRUG Active Other 2017-0 MD ATIN INGREDI 5-17 Anderso 00:00: n 00 ROSUVAST DRUG Active Other 2017-0 MD ATIN INGREDI 5-17 Anderso 00:00: n 00 ROSUVAST DRUG Active Other 2017-0 MD ATIN INGREDI 5-17 Anderso 00:00: n 00 ROSUVAST DRUG Active Other 2017-0 MD ATIN INGREDI 5-17 Anderso 00:00: n 00 ROSUVAST DRUG Active Other 2017-0 MD ATIN INGREDI 5-17 Anderso 00:00: n 00 ROSUVAST DRUG Active Other 2017-0 MD ATIN INGREDI 5-17 Anderso 00:00: n 00 ROSUVAST DRUG Active Other 2017-0 MD ATIN INGREDI 5-17 Anderso 00:00: n 00 ROSUVAST DRUG Active Other 2017-0 MD ATIN INGREDI 5-17 Anderso 00:00: n 00 ROSUVAST DRUG Active Other 2017-0 MD ATIN INGREDI 5-17 Anderso 00:00: n 00 ROSUVAST DRUG Active Other 2017-0 MD ATIN INGREDI 5-17 Anderso 00:00: n 00 ROSUVAST DRUG Active Other 2017-0 MD ATIN INGREDI 5-17 Anderso 00:00: n 00 ROSUVAST DRUG Active Other 2017-0 MD ATIN INGREDI 5-17 Anderso 00:00: n 00 ROSUVAST DRUG Active Other 2017-0 MD ATIN INGREDI 5-17 Anderso 00:00: n 00 ROSUVAST DRUG Active Other 2017-0 MD ATIN INGREDI 5-17 Anderso 00:00: n 00 ROSUVAST DRUG Active Other 2017-0 MD ATIN INGREDI 5-17 Anderso 00:00: n 00 ROSUVAST DRUG Active Other 2017-0 MD ATIN INGREDI 5-17 Anderso 00:00: n 00 ROSUVAST DRUG Active Other 2017-0 MD ATIN INGREDI 5-17 Anderso 00:00: n 00 ROSUVAST DRUG Active Other 2017-0 MD ATIN INGREDI 5-17 Anderso 00:00: n 00 ROSUVAST DRUG Active Other 2017-0 MD ATIN INGREDI 5-17 Anderso 00:00: n 00 ROSUVAST DRUG Active Other 2017-0 MD ATIN INGREDI 5-17 Anderso 00:00: n 00 ROSUVAST DRUG Active Other 2017-0 MD ATIN INGREDI 5-17 Anderso 00:00: n 00 ROSUVAST DRUG Active Other 2017-0 MD ATIN INGREDI 5-17 Anderso 00:00: n 00 ROSUVAST DRUG Active Other 2017-0 MD ATIN INGREDI 5-17 Anderso 00:00: n 00 ROSUVAST DRUG Active Other 2017-0 MD ATIN INGREDI 5-17 Anderso 00:00: n 00 ROSUVAST DRUG Active Other 2017-0 MD ATIN INGREDI 5-17 Anderso 00:00: n 00 ROSUVAST DRUG Active Other 2017-0 MD ATIN INGREDI 5-17 Anderso 00:00: n 00 ROSUVAST DRUG Active Other 2017-0 MD ATIN INGREDI 5-17 Anderso 00:00: n 00 ROSUVAST DRUG Active Other 2017-0 MD ATIN INGREDI 5-17 Anderso 00:00: n 00 ROSUVAST DRUG Active Other 2017-0 MD ATIN INGREDI 5-17 Anderso 00:00: n 00 ROSUVAST DRUG Active Other 2017-0 MD ATIN INGREDI 5-17 Anderso 00:00: n 00 ROSUVAST DRUG Active Other 2017-0 MD ATIN INGREDI 5-17 Anderso 00:00: n 00 ROSUVAST DRUG Active Other 2017-0 MD ATIN INGREDI 5-17 Anderso 00:00: n 00 ROSUVAST DRUG Active Other 2017-0 MD ATIN INGREDI 5-17 Anderso 00:00: n 00 ROSUVAST DRUG Active Other 2017-0 MD ATIN INGREDI 5-17 Anderso 00:00: n 00 ROSUVAST DRUG Active Other 2017-0 MD ATIN INGREDI 5-17 Anderso 00:00: n 00 ROSUVAST DRUG Active Other 2017-0 MD ATIN INGREDI 5-17 Anderso 00:00: n 00 ROSUVAST DRUG Active Other 2017-0 MD ATIN INGREDI 5-17 Anderso 00:00: n 00 ROSUVAST DRUG Active Other 2017-0 MD ATIN INGREDI 5-17 Anderso 00:00: n 00 ROSUVAST DRUG Active Other 2017-0 MD ATIN INGREDI 5-17 Anderso 00:00: n 00 ROSUVAST DRUG Active Other 2017-0 MD ATIN INGREDI 5-17 Anderso 00:00: n 00 ROSUVAST DRUG Active Other 2017-0 MD ATIN INGREDI 5-17 Anderso 00:00: n 00 ROSUVAST DRUG Active Other 2017-0 MD ATIN INGREDI 5-17 Anderso 00:00: n 00 ROSUVAST DRUG Active Other 2017-0 MD ATIN INGREDI 5-17 Anderso 00:00: n 00 ROSUVAST DRUG Active Other 2017-0 MD ATIN INGREDI 5-17 Anderso 00:00: n 00 ROSUVAST DRUG Active Other 2017-0 MD ATIN INGREDI 5-17 Anderso 00:00: n 00 ROSUVAST DRUG Active Other 2017-0 MD ATIN INGREDI 5-17 Anderso 00:00: n 00 ROSUVAST DRUG Active Other 2017-0 MD ATIN INGREDI 5-17 Anderso 00:00: n 00 ROSUVAST DRUG Active Other 2017-0 MD ATIN INGREDI 5-17 Anderso 00:00: n 00 ROSUVAST DRUG Active Other 2017-0 MD ATIN INGREDI 5-17 Anderso 00:00: n 00 ROSUVAST DRUG Active Other 2017-0 MD ATIN INGREDI 5-17 Anderso 00:00: n 00 ROSUVAST DRUG Active Other 2017-0 MD ATIN INGREDI 5-17 Anderso 00:00: n 00 ROSUVAST DRUG Active Other 2017-0 MD ATIN INGREDI 5-17 Anderso 00:00: n 00 ROSUVAST DRUG Active Other 2017-0 MD ATIN INGREDI 5-17 Anderso 00:00: n 00 ROSUVAST DRUG Active Other 2017-0 MD ATIN INGREDI 5-17 Anderso 00:00: n 00 ROSUVAST DRUG Active Other 2017-0 MD ATIN INGREDI 5-17 Anderso 00:00: n 00 ROSUVAST DRUG Active Other 2017-0 MD ATIN INGREDI 5-17 Anderso 00:00: n 00 ROSUVAST DRUG Active Other 2017-0 MD ATIN INGREDI 5-17 Anderso 00:00: n 00 ROSUVAST DRUG Active Other 2017-0 MD ATIN INGREDI 5-17 Anderso 00:00: n 00 ROSUVAST DRUG Active Other 2017-0 MD ATIN INGREDI 5-17 Anderso 00:00: n 00 ROSUVAST DRUG Active Other 2017-0 MD ATIN INGREDI 5-17 Anderso 00:00: n 00 ROSUVAST DRUG Active Other 2017-0 MD ATIN INGREDI 5-17 Anderso 00:00: n 00 ROSUVAST DRUG Active Other 2017-0 MD ATIN INGREDI 5-17 Anderso 00:00: n 00 ROSUVAST DRUG Active Other 2017-0 MD ATIN INGREDI 5-17 Anderso 00:00: n 00 ROSUVAST DRUG Active Other 2017-0 MD ATIN INGREDI 5-17 Anderso 00:00: n 00 ROSUVAST DRUG Active Other 2017-0 MD ATIN INGREDI 5-17 Anderso 00:00: n 00 ROSUVAST DRUG Active Other 2017-0 MD ATIN INGREDI 5-17 Anderso 00:00: n 00 ROSUVAST DRUG Active Other 2017-0 MD ATIN INGREDI 5-17 Anderso 00:00: n 00 ROSUVAST DRUG Active Other 2017-0 MD ATIN INGREDI 5-17 Anderso 00:00: n 00 ROSUVAST DRUG Active Other 2017-0 MD ATIN INGREDI 5-17 Anderso 00:00: n 00 ROSUVAST DRUG Active Other 2017-0 MD ATIN INGREDI 5-17 Anderso 00:00: n 00 ROSUVAST DRUG Active Other 2017-0 MD ATIN INGREDI 5-17 Anderso 00:00: n 00 ROSUVAST DRUG Active Other 2017-0 MD ATIN INGREDI 5-17 Anderso 00:00: n 00 ROSUVAST DRUG Active Other 2017-0 MD ATIN INGREDI 5-17 Anderso 00:00: n 00 ROSUVAST DRUG Active Other 2017-0 MD ATIN INGREDI 5-17 Anderso 00:00: n 00 ROSUVAST DRUG Active Other 2017-0 MD ATIN INGREDI 5-17 Anderso 00:00: n 00 ROSUVAST DRUG Active Other 2017-0 MD ATIN INGREDI 5-17 Anderso 00:00: n 00 ROSUVAST DRUG Active Other 2017-0 MD ATIN INGREDI 5-17 Anderso 00:00: n 00 ROSUVAST DRUG Active Other 2017-0 MD ATIN INGREDI 5-17 Anderso 00:00: n 00 ROSUVAST DRUG Active Other 2017-0 MD ATIN INGREDI 5-17 Anderso 00:00: n 00 ROSUVAST DRUG Active Other 2017-0 MD ATIN INGREDI 5-17 Anderso 00:00: n 00 ROSUVAST DRUG Active Other 2017-0 MD ATIN INGREDI 5-17 Anderso 00:00: n 00 ROSUVAST DRUG Active Other 2017-0 MD ATIN INGREDI 5-17 Anderso 00:00: n 00 ROSUVAST DRUG Active Other 2017-0 MD ATIN INGREDI 5-17 Anderso 00:00: n 00 ROSUVAST DRUG Active Other 2017-0 MD ATIN INGREDI 5-17 Anderso 00:00: n 00 ROSUVAST DRUG Active Other 2017-0 MD ATIN INGREDI 5-17 Anderso 00:00: n 00 ROSUVAST DRUG Active Other 2017-0 MD ATIN INGREDI 5-17 Anderso 00:00: n 00 ROSUVAST DRUG Active Other 2017-0 MD ATIN INGREDI 5-17 Anderso 00:00: n 00 ROSUVAST DRUG Active Other 2017-0 MD ATIN INGREDI 5-17 Anderso 00:00: n 00 ROSUVAST DRUG Active Other 2017-0 MD ATIN INGREDI 5-17 Anderso 00:00: n 00 ROSUVAST DRUG Active Other 2017-0 MD ATIN INGREDI 5-17 Anderso 00:00: n 00 ROSUVAST DRUG Active Other 2017-0 MD ATIN INGREDI 5-17 Anderso 00:00: n 00 ROSUVAST DRUG Active Other 2017-0 MD ATIN INGREDI 5-17 Anderso 00:00: n 00 ROSUVAST DRUG Active Other 2017-0 MD ATIN INGREDI 5-17 Anderso 00:00: n 00 ROSUVAST DRUG Active Other 2017-0 MD ATIN INGREDI 5-17 Anderso 00:00: n 00 ROSUVAST DRUG Active Other 2017-0 MD ATIN INGREDI 5-17 Anderso 00:00: n 00 ROSUVAST DRUG Active Other 2017-0 MD ATIN INGREDI 5-17 Anderso 00:00: n 00 ROSUVAST DRUG Active Other 2017-0 MD ATIN INGREDI 5-17 Anderso 00:00: n 00 ROSUVAST DRUG Active Other 2017-0 MD ATIN INGREDI 5-17 Anderso 00:00: n 00 ROSUVAST DRUG Active Other 2017-0 MD ATIN INGREDI 5-17 Anderso 00:00: n 00 ROSUVAST DRUG Active Other 2017-0 MD ATIN INGREDI 5-17 Anderso 00:00: n 00 ROSUVAST DRUG Active Other 2017-0 MD ATIN INGREDI 5-17 Anderso 00:00: n 00 ROSUVAST DRUG Active Other 2017-0 MD ATIN INGREDI 5-17 Anderso 00:00: n 00 ROSUVAST DRUG Active Other 2017-0 MD ATIN INGREDI 5-17 Anderso 00:00: n 00 ROSUVAST DRUG Active Other 2017-0 MD ATIN INGREDI 5-17 Anderso 00:00: n 00 ROSUVAST DRUG Active Other 2017-0 MD ATIN INGREDI 5-17 Anderso 00:00: n 00 ROSUVAST DRUG Active Other 2017-0 MD ATIN INGREDI 5-17 Anderso 00:00: n 00 ROSUVAST DRUG Active Other 2017-0 MD ATIN INGREDI 5-17 Anderso 00:00: n 00 ROSUVAST DRUG Active Other 2017-0 MD ATIN INGREDI 5-17 Anderso 00:00: n 00 ROSUVAST DRUG Active Other 2017-0 MD ATIN INGREDI 5-17 Anderso 00:00: n 00 ROSUVAST DRUG Active Other 2017-0 MD ATIN INGREDI 5-17 Anderso 00:00: n 00 ROSUVAST DRUG Active Other 2017-0 MD ATIN INGREDI 5-17 Anderso 00:00: n 00 ROSUVAST DRUG Active Other 2017-0 MD ATIN INGREDI 5-17 Anderso 00:00: n 00 ROSUVAST DRUG Active Other 2017-0 MD ATIN INGREDI 5-17 Anderso 00:00: n 00 ROSUVAST DRUG Active Other 2017-0 MD ATIN INGREDI 5-17 Anderso 00:00: n 00 ROSUVAST DRUG Active Other 2017-0 MD ATIN INGREDI 5-17 Anderso 00:00: n 00 ROSUVAST DRUG Active Other 2017-0 MD ATIN INGREDI 5-17 Anderso 00:00: n 00 ROSUVAST DRUG Active Other 2017-0 MD ATIN INGREDI 5-17 Anderso 00:00: n 00 ROSUVAST DRUG Active Other 2017-0 MD ATIN INGREDI 5-17 Anderso 00:00: n 00 ROSUVAST DRUG Active Other 2017-0 MD ATIN INGREDI 5-17 Anderso 00:00: n 00 ROSUVAST DRUG Active Other 2017-0 MD ATIN INGREDI 5-17 Anderso 00:00: n 00 ROSUVAST DRUG Active Other 2017-0 MD ATIN INGREDI 5-17 Anderso 00:00: n 00 ROSUVAST DRUG Active Other 2017-0 MD ATIN INGREDI 5-17 Anderso 00:00: n 00 ROSUVAST DRUG Active Other 2017-0 MD ATIN INGREDI 5-17 Anderso 00:00: n 00 ROSUVAST DRUG Active Other 2017-0 MD ATIN INGREDI 5-17 Anderso 00:00: n 00 ROSUVAST DRUG Active Other 2017-0 MD ATIN INGREDI 5-17 Anderso 00:00: n 00 ROSUVAST DRUG Active Other 2017-0 MD ATIN INGREDI 5-17 Anderso 00:00: n 00 ROSUVAST DRUG Active Other 2017-0 MD ATIN INGREDI 5-17 Anderso 00:00: n 00 ROSUVAST DRUG Active Other 2017-0 MD ATIN INGREDI 5-17 Anderso 00:00: n 00 ROSUVAST DRUG Active Other 2017-0 MD ATIN INGREDI 5-17 Anderso 00:00: n 00 ROSUVAST DRUG Active Other 2017-0 MD ATIN INGREDI 5-17 Anderso 00:00: n 00 ROSUVAST DRUG Active Other 2017-0 MD ATIN INGREDI 5-17 Anderso 00:00: n 00 ROSUVAST DRUG Active Other 2017-0 MD ATIN INGREDI 5-17 Anderso 00:00: n 00 ROSUVAST DRUG Active Other 2017-0 MD ATIN INGREDI 5-17 Anderso 00:00: n 00 ROSUVAST DRUG Active Other 2017-0 MD ATIN INGREDI 5-17 Anderso 00:00: n 00 ROSUVAST DRUG Active Other 2017-0 MD ATIN INGREDI 5-17 Anderso 00:00: n 00 ROSUVAST DRUG Active Other 2017-0 MD ATIN INGREDI 5-17 Anderso 00:00: n 00 ROSUVAST DRUG Active Other 2017-0 MD ATIN INGREDI 5-17 Anderso 00:00: n 00 ROSUVAST DRUG Active Other 2017-0 MD ATIN INGREDI 5-17 Anderso 00:00: n 00 ROSUVAST DRUG Active Other 2017-0 MD ATIN INGREDI 5-17 Anderso 00:00: n 00 ROSUVAST DRUG Active Other 2017-0 MD ATIN INGREDI 5-17 Anderso 00:00: n 00 ROSUVAST DRUG Active Other 2017-0 MD ATIN INGREDI 5-17 Anderso 00:00: n 00 ROSUVAST DRUG Active Other 2017-0 MD ATIN INGREDI 5-17 Anderso 00:00: n 00 ROSUVAST DRUG Active Other 2017-0 MD ATIN INGREDI 5-17 Anderso 00:00: n 00 ROSUVAST DRUG Active Other 2017-0 MD ATIN INGREDI 5-17 Anderso 00:00: n 00 ROSUVAST DRUG Active Other 2017-0 MD ATIN INGREDI 5-17 Anderso 00:00: n 00 ROSUVAST DRUG Active Other 2017-0 MD ATIN INGREDI 5-17 Anderso 00:00: n 00 ROSUVAST DRUG Active Other 2017-0 MD ATIN INGREDI 5-17 Anderso 00:00: n 00 ROSUVAST DRUG Active Other 2017-0 MD ATIN INGREDI 5-17 Anderso 00:00: n 00 ROSUVAST DRUG Active Other 2017-0 MD ATIN INGREDI 5-17 Anderso 00:00: n 00 ROSUVAST DRUG Active Other 2017-0 MD ATIN INGREDI 5-17 Anderso 00:00: n 00 ROSUVAST DRUG Active Other 2017-0 MD ATIN INGREDI 5-17 Anderso 00:00: n 00 ROSUVAST DRUG Active Other 2017-0 MD ATIN INGREDI 5-17 Anderso 00:00: n 00 ROSUVAST DRUG Active Other 2017-0 MD ATIN INGREDI 5-17 Anderso 00:00: n 00 ROSUVAST DRUG Active Other 2017-0 MD ATIN INGREDI 5-17 Anderso 00:00: n 00 ROSUVAST DRUG Active Other 2017-0 MD ATIN INGREDI 5-17 Anderso 00:00: n 00 ROSUVAST DRUG Active Other 2017-0 MD ATIN INGREDI 5-17 Anderso 00:00: n 00 ROSUVAST DRUG Active Other 2017-0 MD ATIN INGREDI 5-17 Anderso 00:00: n 00 ROSUVAST DRUG Active Other 2017-0 MD ATIN INGREDI 5-17 Anderso 00:00: n 00 ROSUVAST DRUG Active Other 2017-0 MD ATIN INGREDI 5-17 Anderso 00:00: n 00 ROSUVAST DRUG Active Other 2017-0 MD ATIN INGREDI 5-17 Anderso 00:00: n 00 ROSUVAST DRUG Active Other 2017-0 MD ATIN INGREDI 5-17 Anderso 00:00: n 00 ROSUVAST DRUG Active Other 2017-0 MD ATIN INGREDI 5-17 Anderso 00:00: n 00 ROSUVAST DRUG Active Other 2017-0 MD ATIN INGREDI 5-17 Anderso 00:00: n 00 ROSUVAST DRUG Active Other 2017-0 MD ATIN INGREDI 5-17 Anderso 00:00: n 00 ROSUVAST DRUG Active Other 2017-0 MD ATIN INGREDI 5-17 Anderso 00:00: n 00 ROSUVAST DRUG Active Other 2017-0 MD ATIN INGREDI 5-17 Anderso 00:00: n 00 ROSUVAST DRUG Active Other 2017-0 MD ATIN INGREDI 5-17 Anderso 00:00: n 00 ROSUVAST DRUG Active Other 2017-0 MD ATIN INGREDI 5-17 Anderso 00:00: n 00 ROSUVAST DRUG Active Other 2017-0 MD ATIN INGREDI 5-17 Anderso 00:00: n 00 ROSUVAST DRUG Active Other 2017-0 MD ATIN INGREDI 5-17 Anderso 00:00: n 00 ROSUVAST DRUG Active Other 2017-0 MD ATIN INGREDI 5-17 Anderso 00:00: n 00 ROSUVAST DRUG Active Other 2017-0 MD ATIN INGREDI 5-17 Anderso 00:00: n 00 ROSUVAST DRUG Active Other 2017-0 MD ATIN INGREDI 5-17 Anderso 00:00: n 00 ROSUVAST DRUG Active Other 2017-0 MD ATIN INGREDI 5-17 Anderso 00:00: n 00 ROSUVAST DRUG Active Other 2017-0 MD ATIN INGREDI 5-17 Anderso 00:00: n 00 ROSUVAST DRUG Active Other-Cmnt 2017-0 Univ ers ATIN INGREDI 5-17 ity of 00:00: [place] [facility] Rosuvast Propensi Active Other (See 2017-0 Vague Un dequan atin ty to Comments) 5-17 intoleran ity of adverse 00:00: ce [place] reaction 00 s [facility] LATEX DRUG Active High Rash 2017-0 MD INGREDI 4-14 Anderso 00:00: n 00 TIOTROPI DRUG Active High Sob 2017-0 MD UM INGREDI 4-14 Anderso BROMIDE 00:00: n 00 CETIRIZI DRUG Active Other 2017-0 MD NE INGREDI 4-14 Anderso 00:00: n 00 DEXLANSO DRUG Active Diarrhea 2017-0 MD PRAZOLE INGREDI 4-14 Anderso 00:00: n 00 MACROLID Drug Active Nausea 2017-0 MD E Class 4-14 Anderso ANTIBIOT 00:00: n ICS 00 TRIAMTER DRUG Active Swelling 2017-0 MD ELENA-HYDR 4-14 Anderso [place] 00:00: n HIAZID 00 ADHESIVE Drug Active Low Rash 2017-0 MD Class 4-14 Anderso 00:00: n 00 FLUTICAS DRUG Active Low Anxiety 2017-0 MD ONE 4-14 Anderso FUROATE- 00:00: n VILANTER 00 OL ZILEUTON DRUG Active Low Anxiety 2017-0 MD INGREDI 4-14 Anderso 00:00: n 00 TIOTROPI DRUG Active High Sob 2017-0 MD UM INGREDI 4-14 Anderso BROMIDE 00:00: n 00 BUDESONI DRUG Active High Sob 2017-0 MD DE-FORMO 4-14 Anderso TEROL 00:00: n 00 FLUTICAS DRUG Active High Sob 2017-0 MD ONE INGREDI 4-14 Anderso 00:00: n 00 LATEX DRUG Active High Rash 2017-0 MD INGREDI 4-14 Anderso 00:00: n 00 TIOTROPI DRUG Active High Sob 2017-0 MD UM INGREDI 4-14 Anderso BROMIDE 00:00: n 00 CETIRIZI DRUG Active Other 2017-0 MD NE INGREDI 4-14 Anderso 00:00: n 00 DEXLANSO DRUG Active Diarrhea 2017-0 MD PRAZOLE INGREDI 4-14 Anderso 00:00: n 00 MACROLID Drug Active Nausea 2017-0 MD E Class 4-14 Anderso ANTIBIOT 00:00: n ICS 00 TRIAMTER DRUG Active Swelling 2017-0 MD ELENA-HYDR 4-14 Anderso [place] 00:00: n HIAZID 00 CETIRIZI DRUG Active Other 2017-0 MD NE INGREDI 4-14 Anderso 00:00: n 00 ADHESIVE Drug Active Low Rash 2017-0 MD Class 4-14 Anderso 00:00: n 00 FLUTICAS DRUG Active Low Anxiety 2017-0 MD ONE 4-14 Anderso FUROATE- 00:00: n VILANTER 00 OL ZILEUTON DRUG Active Low Anxiety 2017-0 MD INGREDI 4-14 Anderso 00:00: n 00 BUDESONI DRUG Active High Sob 2017-0 MD DE-FORMO 4-14 Anderso TEROL 00:00: n 00 FLUTICAS DRUG Active High Sob 2017-0 MD ONE INGREDI 4-14 Anderso 00:00: n 00 LATEX DRUG Active High Rash 2017-0 MD INGREDI 4-14 Anderso 00:00: n 00 TIOTROPI DRUG Active High Sob 2017-0 MD UM INGREDI 4-14 Anderso BROMIDE 00:00: n 00 CETIRIZI DRUG Active Other 2017-0 MD NE INGREDI 4-14 Anderso 00:00: n 00 DEXLANSO DRUG Active Diarrhea 2017-0 MD PRAZOLE INGREDI 4-14 Anderso 00:00: n 00 MACROLID Drug Active Nausea 2017-0 MD E Class 4-14 Anderso ANTIBIOT 00:00: n ICS 00 DEXLANSO DRUG Active Diarrhea 2017-0 MD PRAZOLE INGREDI 4-14 Anderso 00:00: n 00 TRIAMTER DRUG Active Swelling 2017-0 MD ELENA-HYDR 4-14 Anderso [place] 00:00: n HIAZID 00 ADHESIVE Drug Active Low Rash 2017-0 MD Class 4-14 Anderso 00:00: n 00 FLUTICAS DRUG Active Low Anxiety 2017-0 MD ONE 4-14 Anderso FUROATE- 00:00: n VILANTER 00 OL ZILEUTON DRUG Active Low Anxiety 2017-0 MD INGREDI 4-14 Anderso 00:00: n 00 BUDESONI DRUG Active High Sob 2017-0 MD DE-FORMO 4-14 Anderso TEROL 00:00: n 00 FLUTICAS DRUG Active High Sob 2017-0 MD ONE INGREDI 4-14 Anderso 00:00: n 00 LATEX DRUG Active High Rash 2017-0 MD INGREDI 4-14 Anderso 00:00: n 00 TIOTROPI DRUG Active High Sob 2017-0 MD UM INGREDI 4-14 Anderso BROMIDE 00:00: n 00 CETIRIZI DRUG Active Other 2017-0 MD NE INGREDI 4-14 Anderso 00:00: n 00 MACROLID Drug Active Nausea 2017-0 MD E Class 4-14 Anderso ANTIBIOT 00:00: n ICS 00 DEXLANSO DRUG Active Diarrhea 2017-0 MD PRAZOLE INGREDI 4-14 Anderso 00:00: n 00 MACROLID Drug Active Nausea 2017-0 MD E Class 4-14 Anderso ANTIBIOT 00:00: n ICS 00 TRIAMTER DRUG Active Swelling 2017-0 MD ELENA-HYDR 4-14 Anderso [place] 00:00: n HIAZID 00 ADHESIVE Drug Active Low Rash 2017-0 MD Class 4-14 Anderso 00:00: n 00 FLUTICAS DRUG Active Low Anxiety 2017-0 MD ONE 4-14 Anderso FUROATE- 00:00: n VILANTER 00 OL ZILEUTON DRUG Active Low Anxiety 2017-0 MD INGREDI 4-14 Anderso 00:00: n 00 BUDESONI DRUG Active High Sob 2017-0 MD DE-FORMO 4-14 Anderso TEROL 00:00: n 00 FLUTICAS DRUG Active High Sob 2017-0 MD ONE INGREDI 4-14 Anderso 00:00: n 00 LATEX DRUG Active High Rash 2017-0 MD INGREDI 4-14 Anderso 00:00: n 00 TIOTROPI DRUG Active High Sob 2017-0 MD UM INGREDI 4-14 Anderso BROMIDE 00:00: n 00 CETIRIZI DRUG Active Other 2017-0 MD NE INGREDI 4-14 Anderso 00:00: n 00 DEXLANSO DRUG Active Diarrhea 2017-0 MD PRAZOLE INGREDI 4-14 Anderso 00:00: n 00 MACROLID Drug Active Nausea 2017-0 MD E Class 4-14 Anderso ANTIBIOT 00:00: n ICS 00 TRIAMTER DRUG Active Swelling 2017-0 MD ELENA-HYDR 4-14 Anderso [place] 00:00: n HIAZID 00 ADHESIVE Drug Active Low Rash 2017-0 MD Class 4-14 Anderso 00:00: n 00 FLUTICAS DRUG Active Low Anxiety 2017-0 MD ONE 4-14 Anderso FUROATE- 00:00: n VILANTER 00 OL ZILEUTON DRUG Active Low Anxiety 2017-0 MD INGREDI 4-14 Anderso 00:00: n 00 BUDESONI DRUG Active High Sob 2017-0 MD DE-FORMO 4-14 Anderso TEROL 00:00: n 00 FLUTICAS DRUG Active High Sob 2017-0 MD ONE INGREDI 4-14 Anderso 00:00: n 00 TRIAMTER DRUG Active Swelling 2017-0 MD ELENA-HYDR 4-14 Anderso [place] 00:00: n HIAZID 00 LATEX DRUG Active High Rash 2017-0 MD INGREDI 4-14 Anderso 00:00: n 00 TIOTROPI DRUG Active High Sob 2017-0 MD UM INGREDI 4-14 Anderso BROMIDE 00:00: n 00 CETIRIZI DRUG Active Other 2017-0 MD NE INGREDI 4-14 Anderso 00:00: n 00 DEXLANSO DRUG Active Diarrhea 2017-0 MD PRAZOLE INGREDI 4-14 Anderso 00:00: n 00 ADHESIVE Drug Active Low Rash 2017-0 MD Class 4-14 Anderso 00:00: n 00 MACROLID Drug Active Nausea 2017-0 MD E Class 4-14 Anderso ANTIBIOT 00:00: n ICS 00 TRIAMTER DRUG Active Swelling 2017-0 MD ELENA-HYDR 4-14 Anderso [place] 00:00: n HIAZID 00 ADHESIVE Drug Active Low Rash 2017-0 MD Class 4-14 Anderso 00:00: n 00 FLUTICAS DRUG Active Low Anxiety 2017-0 MD ONE 4-14 Anderso FUROATE- 00:00: n VILANTER 00 OL ZILEUTON DRUG Active Low Anxiety 2017-0 MD INGREDI 4-14 Anderso 00:00: n 00 FLUTICAS DRUG Active Low Anxiety 2017-0 MD ONE 4-14 Anderso FUROATE- 00:00: n VILANTER 00 OL BUDESONI DRUG Active High Sob 2017-0 MD DE-FORMO 4-14 Anderso TEROL 00:00: n 00 FLUTICAS DRUG Active High Sob 2017-0 MD ONE INGREDI 4-14 Anderso 00:00: n 00 LATEX DRUG Active High Rash 2017-0 MD INGREDI 4-14 Anderso 00:00: n 00 TIOTROPI DRUG Active High Sob 2017-0 MD UM INGREDI 4-14 Anderso BROMIDE 00:00: n 00 CETIRIZI DRUG Active Other 2017-0 MD NE INGREDI 4-14 Anderso 00:00: n 00 DEXLANSO DRUG Active Diarrhea 2017-0 MD PRAZOLE INGREDI 4-14 Anderso 00:00: n 00 MACROLID Drug Active Nausea 2017-0 MD E Class 4-14 Anderso ANTIBIOT 00:00: n ICS 00 TRIAMTER DRUG Active Swelling 2017-0 MD ELENA-HYDR 4-14 Anderso [place] 00:00: n HIAZID 00 ZILEUTON DRUG Active Low Anxiety 2017-0 MD INGREDI 4-14 Anderso 00:00: n 00 ADHESIVE Drug Active Low Rash 2017-0 MD Class 4-14 Anderso 00:00: n 00 FLUTICAS DRUG Active Low Anxiety 2017-0 MD ONE 4-14 Anderso FUROATE- 00:00: n VILANTER 00 OL ZILEUTON DRUG Active Low Anxiety 2017-0 MD INGREDI 4-14 Anderso 00:00: n 00 BUDESONI DRUG Active High Sob 2017-0 MD DE-FORMO 4-14 Anderso TEROL 00:00: n 00 FLUTICAS DRUG Active High Sob 2017-0 MD ONE INGREDI 4-14 Anderso 00:00: n 00 LATEX DRUG Active High Rash 2017-0 MD INGREDI 4-14 Anderso 00:00: n 00 TIOTROPI DRUG Active High Sob 2017-0 MD UM INGREDI 4-14 [facility] BROMIDE 00:00: n 00 CETIRIZI DRUG Active Other 2017-0 MD NE INGREDI 4-14 Anderso 00:00: n 00 DEXLANSO DRUG Active Diarrhea 2017-0 MD PRAZOLE INGREDI 4-14 Anders[facility] 00:00: n 00 MACROLID Drug Active Nausea 2017-0 MD E Class 4-14 Anders[facility] ANTIBIOT 00:00: n ICS 00 TRIAMTER DRUG Active Swelling 2017-0 MD ELENA-HYDR 4-14 [facility] [place] 00:00: n HIAZID 00 ADHESIVE Drug Active Low Rash 2017-0 MD Class 4-14 Anders[facility] 00:00: n 00 FLUTICAS DRUG Active Low Anxiety 2017-0 MD ONE 4-14 Anderso FUROATE- 00:00: n VILANTER 00 OL ZILEUTON DRUG Active Low Anxiety 2017-0 MD INGREDI 4-14 Anders[facility] 00:00: n 00 BUDESONI DRUG Active High Sob 2017-0 MD DE-FORMO 4-14 Anderso TEROL 00:00: n 00 FLUTICAS DRUG Active High Sob 2017-0 MD ONE INGREDI 4-14 Anderso 00:00: n 00 LATEX DRUG Active High Rash 2017-0 MD INGREDI 4-14 Anderso 00:00: n 00 TIOTROPI DRUG Active High Sob 2017-0 MD UM INGREDI 4-14 [facility] BROMIDE 00:00: n 00 CETIRIZI DRUG Active Other 2017-0 MD NE INGREDI 4-14 Anders[facility] 00:00: n 00 DEXLANSO DRUG Active Diarrhea 2017-0 MD PRAZOLE INGREDI 4-14 Anders[facility] 00:00: n 00 MACROLID Drug Active Nausea 2017-0 MD E Class 4-14 Anders[facility] ANTIBIOT 00:00: n ICS 00 TRIAMTER DRUG Active Swelling 2017-0 MD ELENA-HYDR 4-14 [facility] [place] 00:00: n HIAZID 00 ADHESIVE Drug Active Low Rash 2017-0 MD Class 4-14 Anders[facility] 00:00: n 00 BUDESONI DRUG Active High Sob 2017-0 MD DE-FORMO 4-14 Anderso TEROL 00:00: n 00 FLUTICAS DRUG Active Low Anxiety 2017-0 MD ONE 4-14 Anders[facility] FUROATE- 00:00: n VILANTER 00 OL ZILEUTON DRUG Active Low Anxiety 2017-0 MD INGREDI 4-14 Anderso 00:00: n 00 BUDESONI DRUG Active High Sob 2017-0 MD DE-FORMO 4-14 Anderso TEROL 00:00: n 00 FLUTICAS DRUG Active High Sob 2017-0 MD ONE INGREDI 4-14 Anderso 00:00: n 00 LATEX DRUG Active High Rash 2017-0 MD INGREDI 4-14 Anderso 00:00: n 00 FLUTICAS DRUG Active High Sob 2017-0 MD ONE INGREDI 4-14 Anderso 00:00: n 00 TIOTROPI DRUG Active High Sob 2017-0 MD UM INGREDI 4-14 [facility] BROMIDE 00:00: n 00 CETIRIZI DRUG Active Other 2017-0 MD NE INGREDI 4-14 Anderso 00:00: n 00 DEXLANSO DRUG Active Diarrhea 2017-0 MD PRAZOLE INGREDI 4-14 Anders[facility] 00:00: n 00 MACROLID Drug Active Nausea 2017-0 MD E Class 4-14 Anders[facility] ANTIBIOT 00:00: n ICS 00 LATEX DRUG Active High Rash 2017-0 MD INGREDI 4-14 Anders[facility] 00:00: n 00 TRIAMTER DRUG Active Swelling 2017-0 MD ELENA-HYDR 4-14 [facility] [place] 00:00: n HIAZID 00 ADHESIVE Drug Active Low Rash 2017-0 MD Class 4-14 Anders[facility] 00:00: n 00 FLUTICAS DRUG Active Low Anxiety 2017-0 MD ONE 4-14 Anderso FUROATE- 00:00: n VILANTER 00 OL ZILEUTON DRUG Active Low Anxiety 2017-0 MD INGREDI 4-14 Anders[facility] 00:00: n 00 BUDESONI DRUG Active High Sob 2017-0 MD DE-FORMO 4-14 Anderso TEROL 00:00: n 00 FLUTICAS DRUG Active High Sob 2017-0 MD ONE INGREDI 4-14 Anderso 00:00: n 00 LATEX DRUG Active High Rash 2017-0 MD INGREDI 4-14 Anderso 00:00: n 00 TIOTROPI DRUG Active High Sob 2017-0 MD UM INGREDI 4-14 [facility] BROMIDE 00:00: n 00 CETIRIZI DRUG Active Other 2017-0 MD NE INGREDI 4-14 Anders[facility] 00:00: n 00 DEXLANSO DRUG Active Diarrhea 2017-0 MD PRAZOLE INGREDI 4-14 Anders[facility] 00:00: n 00 MACROLID Drug Active Nausea 2017-0 MD E Class 4-14 Anders[facility] ANTIBIOT 00:00: n ICS 00 TRIAMTER DRUG Active Swelling 2017-0 MD ELENA-HYDR 4-14 [facility] [place] 00:00: n HIAZID 00 ADHESIVE Drug Active Low Rash 2017-0 MD Class 4-14 Anderso 00:00: n 00 FLUTICAS DRUG Active Low Anxiety 2017-0 MD ONE 4-14 Anderso FUROATE- 00:00: n VILANTER 00 OL ZILEUTON DRUG Active Low Anxiety 2017-0 MD INGREDI 4-14 Anderso 00:00: n 00 BUDESONI DRUG Active High Sob 2017-0 MD DE-FORMO 4-14 Anderso TEROL 00:00: n 00 FLUTICAS DRUG Active High Sob 2017-0 MD ONE INGREDI 4-14 Anderso 00:00: n 00 LATEX DRUG Active High Rash 2017-0 MD INGREDI 4-14 Anderso 00:00: n 00 TIOTROPI DRUG Active High Sob 2017-0 MD UM INGREDI 4-14 [facility] BROMIDE 00:00: n 00 CETIRIZI DRUG Active Other 2017-0 MD NE INGREDI 4-14 Anderso 00:00: n 00 DEXLANSO DRUG Active Diarrhea 2017-0 MD PRAZOLE INGREDI 4-14 Anderso 00:00: n 00 MACROLID Drug Active Nausea 2017-0 MD E Class 4-14 Anders[facility] ANTIBIOT 00:00: n ICS 00 TIOTROPI DRUG Active High Sob 2017-0 MD UM INGREDI 4-14 [facility] BROMIDE 00:00: n 00 TRIAMTER DRUG Active Swelling 2017-0 MD ELENA-HYDR 4-14 [facility] [place] 00:00: n HIAZID 00 ADHESIVE Drug Active Low Rash 2017-0 MD Class 4-14 Anderso 00:00: n 00 FLUTICAS DRUG Active Low Anxiety 2017-0 MD ONE 4-14 Anderso FUROATE- 00:00: n VILANTER 00 OL ZILEUTON DRUG Active Low Anxiety 2017-0 MD INGREDI 4-14 Anderso 00:00: n 00 BUDESONI DRUG Active High Sob 2017-0 MD DE-FORMO 4-14 Anderso TEROL 00:00: n 00 FLUTICAS DRUG Active High Sob 2017-0 MD ONE INGREDI 4-14 Anderso 00:00: n 00 LATEX DRUG Active High Rash 2017-0 MD INGREDI 4-14 Anderso 00:00: n 00 TIOTROPI DRUG Active High Sob 2017-0 MD UM INGREDI 4-14 [facility] BROMIDE 00:00: n 00 CETIRIZI DRUG Active Other 2017-0 MD NE INGREDI 4-14 Anderso 00:00: n 00 DEXLANSO DRUG Active Diarrhea 2017-0 MD PRAZOLE INGREDI 4-14 Anderso 00:00: n 00 CETIRIZI DRUG Active Other 2017-0 MD NE INGREDI 4-14 Anderso 00:00: n 00 MACROLID Drug Active Nausea 2017-0 MD E Class 4-14 Anders[facility] ANTIBIOT 00:00: n ICS 00 TRIAMTER DRUG Active Swelling 2017-0 MD ELENA-HYDR 4-14 [facility] [place] 00:00: n HIAZID 00 ADHESIVE Drug Active Low Rash 2017-0 MD Class 4-14 Anders[facility] 00:00: n 00 FLUTICAS DRUG Active Low Anxiety 2017-0 MD ONE 4-14 Anderso FUROATE- 00:00: n VILANTER 00 OL ZILEUTON DRUG Active Low Anxiety 2017-0 MD INGREDI 4-14 Anderso 00:00: n 00 BUDESONI DRUG Active High Sob 2017-0 MD DE-FORMO 4-14 Anderso TEROL 00:00: n 00 FLUTICAS DRUG Active High Sob 2017-0 MD ONE INGREDI 4-14 Anders[facility] 00:00: n 00 LATEX DRUG Active High Rash 2017-0 MD INGREDI 4-14 Anderso 00:00: n 00 TIOTROPI DRUG Active High Sob 2017-0 MD UM INGREDI 4-14 [facility] BROMIDE 00:00: n 00 DEXLANSO DRUG Active Diarrhea 2017-0 MD PRAZOLE INGREDI 4-14 Anders[facility] 00:00: n 00 CETIRIZI DRUG Active Other 2017-0 MD NE INGREDI 4-14 Anderso 00:00: n 00 DEXLANSO DRUG Active Diarrhea 2017-0 MD PRAZOLE INGREDI 4-14 Anders[facility] 00:00: n 00 MACROLID Drug Active Nausea 2017-0 MD E Class 4-14 Anders[facility] ANTIBIOT 00:00: n ICS 00 TRIAMTER DRUG Active Swelling 2017-0 MD ELENA-HYDR 4-14 [facility] [place] 00:00: n HIAZID 00 ADHESIVE Drug Active Low Rash 2017-0 MD Class 4-14 Anders[facility] 00:00: n 00 FLUTICAS DRUG Active Low Anxiety 2017-0 MD ONE 4-14 Anderso FUROATE- 00:00: n VILANTER 00 OL ZILEUTON DRUG Active Low Anxiety 2017-0 MD INGREDI 4-14 Anders[facility] 00:00: n 00 BUDESONI DRUG Active High Sob 2017-0 MD DE-FORMO 4-14 Anderso TEROL 00:00: n 00 FLUTICAS DRUG Active High Sob 2017-0 MD ONE INGREDI 4-14 Anderso 00:00: n 00 LATEX DRUG Active High Rash 2017-0 MD INGREDI 4-14 Anders[facility] 00:00: n 00 MACROLID Drug Active Nausea 2017-0 MD E Class 4-14 Anders[facility] ANTIBIOT 00:00: n ICS 00 TIOTROPI DRUG Active High Sob 2017-0 MD UM INGREDI 4-14 [facility] BROMIDE 00:00: n 00 CETIRIZI DRUG Active Other 2017-0 MD NE INGREDI 4-14 Anders[facility] 00:00: n 00 DEXLANSO DRUG Active Diarrhea 2017-0 MD PRAZOLE INGREDI 4-14 Anders[facility] 00:00: n 00 MACROLID Drug Active Nausea 2017-0 MD E Class 4-14 Anders[facility] ANTIBIOT 00:00: n ICS 00 TRIAMTER DRUG Active Swelling 2017-0 MD ELENA-HYDR 4-14 [facility] [place] 00:00: n HIAZID 00 ADHESIVE Drug Active Low Rash 2017-0 MD Class 4-14 Anders[facility] 00:00: n 00 FLUTICAS DRUG Active Low Anxiety 2017-0 MD ONE 4-14 Anderso FUROATE- 00:00: n VILANTER 00 OL ZILEUTON DRUG Active Low Anxiety 2017-0 MD INGREDI 4-14 Anders[facility] 00:00: n 00 BUDESONI DRUG Active High Sob 2017-0 MD DE-FORMO 4-14 Anderso TEROL 00:00: n 00 FLUTICAS DRUG Active High Sob 2017-0 MD ONE INGREDI 4-14 Anders[facility] 00:00: n 00 LATEX DRUG Active High Rash 2017-0 MD INGREDI 4-14 Anders[facility] 00:00: n 00 TIOTROPI DRUG Active High Sob 2017-0 MD UM INGREDI 4-14 [facility] BROM[facility] 00:00: n 00 CETIRIZI DRUG Active Other 2017-0 MD NE INGREDI 4-14 Anders[facility] 00:00: n 00 DEXLANSO DRUG Active Diarrhea 2017-0 MD PRAZOLE INGREDI 4-14 Anders[facility] 00:00: n 00 MACROLID Drug Active Nausea 2017-0 MD E Class 4-14 Anderso ANTIBIOT 00:00: n ICS 00 TRIAMTER DRUG Active Swelling 2017-0 MD ELENA-HYDR 4-14 [facility] [place] 00:00: n HIAZID 00 ADHESIVE Drug Active Low Rash 2017-0 MD Class 4-14 Anders[facility] 00:00: n 00 FLUTICAS DRUG Active Low Anxiety 2017-0 MD ONE 4-14 Anderso FUROATE- 00:00: n VILANTER 00 OL TRIAMTER DRUG Active Swelling 2017-0 MD ELENA-HYDR 4-14 [facility] [place] 00:00: n HIAZID 00 ZILEUTON DRUG Active Low Anxiety 2017-0 MD INGREDI 4-14 Anderso 00:00: n 00 BUDESONI DRUG Active High Sob 2017-0 MD DE-FORMO 4-14 Anderso TEROL 00:00: n 00 FLUTICAS DRUG Active High Sob 2017-0 MD ONE INGREDI 4-14 Anders[facility] 00:00: n 00 LATEX DRUG Active High Rash 2017-0 MD INGREDI 4-14 Anderso 00:00: n 00 ADHESIVE Drug Active Low Rash 2017-0 MD Class 4-14 Anders[facility] 00:00: n 00 TIOTROPI DRUG Active High Sob 2017-0 MD UM INGREDI 4-14 [facility] BROM[facility] 00:00: n 00 CETIRIZI DRUG Active Other 2017-0 MD NE INGREDI 4-14 Anderso 00:00: n 00 DEXLANSO DRUG Active Diarrhea 2017-0 MD PRAZOLE INGREDI 4-14 Anderso 00:00: n 00 MACROLID Drug Active Nausea 2017-0 MD E Class 4-14 Anderso ANTIBIOT 00:00: n ICS 00 FLUTICAS DRUG Active Low Anxiety 2017-0 MD ONE 4-14 Anderso FUROATE- 00:00: n VILANTER 00 OL TRIAMTER DRUG Active Swelling 2017-0 MD ELENA-HYDR 4-14 [facility] [place] 00:00: n HIAZID 00 ADHESIVE Drug Active Low Rash 2017-0 MD Class 4-14 Anderso 00:00: n 00 FLUTICAS DRUG Active Low Anxiety 2017-0 MD ONE 4-14 Anderso FUROATE- 00:00: n VILANTER 00 OL ZILEUTON DRUG Active Low Anxiety 2017-0 MD INGREDI 4-14 Anderso 00:00: n 00 BUDESONI DRUG Active High Sob 2017-0 MD DE-FORMO 4-14 Anderso TEROL 00:00: n 00 FLUTICAS DRUG Active High Sob 2017-0 MD ONE INGREDI 4-14 Anderso 00:00: n 00 LATEX DRUG Active High Rash 2017-0 MD INGREDI 4-14 Anderso 00:00: n 00 TIOTROPI DRUG Active High Sob 2017-0 MD UM INGREDI 4-14 [facility] BROMIDE 00:00: n 00 CETIRIZI DRUG Active Other 2017-0 MD NE INGREDI 4-14 Anderso 00:00: n 00 ZILEUTON DRUG Active Low Anxiety 2017-0 MD INGREDI 4-14 Anderso 00:00: n 00 DEXLANSO DRUG Active Diarrhea 2017-0 MD PRAZOLE INGREDI 4-14 Anderso 00:00: n 00 MACROLID Drug Active Nausea 2017-0 MD E Class 4-14 Anders[facility] ANTIBIOT 00:00: n ICS 00 TRIAMTER DRUG Active Swelling 2017-0 MD ELENA-HYDR 4-14 [facility] [place] 00:00: n HIAZID 00 ADHESIVE Drug Active Low Rash 2017-0 MD Class 4-14 Anderso 00:00: n 00 FLUTICAS DRUG Active Low Anxiety 2017-0 MD ONE 4-14 Anderso FUROATE- 00:00: n VILANTER 00 OL ZILEUTON DRUG Active Low Anxiety 2017-0 MD INGREDI 4-14 Anderso 00:00: n 00 BUDESONI DRUG Active High Sob 2017-0 MD DE-FORMO 4-14 Anderso TEROL 00:00: n 00 FLUTICAS DRUG Active High Sob 2017-0 MD ONE INGREDI 4-14 Anderso 00:00: n 00 LATEX DRUG Active High Rash 2017-0 MD INGREDI 4-14 Anderso 00:00: n 00 TIOTROPI DRUG Active High Sob 2017-0 MD UM INGREDI 4-14 [facility] BROM[facility] 00:00: n 00 CETIRIZI DRUG Active Other 2017-0 MD NE INGREDI 4-14 Anderso 00:00: n 00 DEXLANSO DRUG Active Diarrhea 2017-0 MD PRAZOLE INGREDI 4-14 Anderso 00:00: n 00 MACROLID Drug Active Nausea 2017-0 MD E Class 4-14 Anders[facility] ANTIBIOT 00:00: n ICS 00 TRIAMTER DRUG Active Swelling 2017-0 MD ELENA-HYDR 4-14 [facility] [place] 00:00: n HIAZID 00 ADHESIVE Drug Active Low Rash 2017-0 MD Class 4-14 Anderso 00:00: n 00 FLUTICAS DRUG Active Low Anxiety 2017-0 MD ONE 4-14 Anderso FUROATE- 00:00: n VILANTER 00 OL ZILEUTON DRUG Active Low Anxiety 2017-0 MD INGREDI 4-14 Anderso 00:00: n 00 BUDESONI DRUG Active High Sob 2017-0 MD DE-FORMO 4-14 Anderso TEROL 00:00: n 00 BUDESONI DRUG Active High Sob 2017-0 MD DE-FORMO 4-14 Anderso TEROL 00:00: n 00 FLUTICAS DRUG Active High Sob 2017-0 MD ONE INGREDI 4-14 Anderso 00:00: n 00 LATEX DRUG Active High Rash 2017-0 MD INGREDI 4-14 Anderso 00:00: n 00 TIOTROPI DRUG Active High Sob 2017-0 MD UM INGREDI 4-14 [facility] BROM[facility] 00:00: n 00 CETIRIZI DRUG Active Other 2017-0 MD NE INGREDI 4-14 Anderso 00:00: n 00 FLUTICAS DRUG Active High Sob 2017-0 MD ONE INGREDI 4-14 Anderso 00:00: n 00 DEXLANSO DRUG Active Diarrhea 2017-0 MD PRAZOLE INGREDI 4-14 Anderso 00:00: n 00 MACROLID Drug Active Nausea 2017-0 MD E Class 4-14 Anderso ANTIBIOT 00:00: n ICS 00 TRIAMTER DRUG Active Swelling 2017-0 MD ELENA-HYDR 4-14 [facility] [place] 00:00: n HIAZID 00 ADHESIVE Drug Active Low Rash 2017-0 MD Class 4-14 Anderso 00:00: n 00 FLUTICAS DRUG Active Low Anxiety 2017-0 MD ONE 4-14 Anderso FUROATE- 00:00: n VILANTER 00 OL LATEX DRUG Active High Rash 2017-0 MD INGREDI 4-14 Anderso 00:00: n 00 ZILEUTON DRUG Active Low Anxiety 2017-0 MD INGREDI 4-14 Anderso 00:00: n 00 BUDESONI DRUG Active High Sob 2017-0 MD DE-FORMO 4-14 Anderso TEROL 00:00: n 00 FLUTICAS DRUG Active High Sob 2017-0 MD ONE INGREDI 4-14 Anderso 00:00: n 00 LATEX DRUG Active High Rash 2017-0 MD INGREDI 4-14 Anderso 00:00: n 00 TIOTROPI DRUG Active High Sob 2017-0 MD UM INGREDI 4-14 [facility] BROM[facility] 00:00: n 00 CETIRIZI DRUG Active Other 2017-0 MD NE INGREDI 4-14 Anderso 00:00: n 00 DEXLANSO DRUG Active Diarrhea 2017-0 MD PRAZOLE INGREDI 4-14 Anderso 00:00: n 00 MACROLID Drug Active Nausea 2017-0 MD E Class 4-14 Anderso ANTIBIOT 00:00: n ICS 00 TRIAMTER DRUG Active Swelling 2017-0 MD ELENA-HYDR 4-14 [facility] [place] 00:00: n HIAZID 00 ADHESIVE Drug Active Low Rash 2017-0 MD Class 4-14 [facility]o 00:00: n 00 FLUTICAS DRUG Active Low Anxiety 2017-0 MD ONE 4-14 Anderso FUROATE- 00:00: n VILANTER 00 OL ZILEUTON DRUG Active Low Anxiety 2017-0 MD INGREDI 4-14 Anderso 00:00: n 00 BUDESONI DRUG Active High Sob 2017-0 MD DE-FORMO 4-14 Anderso TEROL 00:00: n 00 FLUTICAS DRUG Active High Sob 2017-0 MD ONE INGREDI 4-14 Anderso 00:00: n 00 LATEX DRUG Active High Rash 2017-0 MD INGREDI 4-14 Anderso 00:00: n 00 TIOTROPI DRUG Active High Sob 2017-0 MD UM INGREDI 4-14 [facility] BROMIDE 00:00: n 00 CETIRIZI DRUG Active Other 2017-0 MD NE INGREDI 4-14 Anders[facility] 00:00: n 00 DEXLANSO DRUG Active Diarrhea 2017-0 MD PRAZOLE INGREDI 4-14 Anderso 00:00: n 00 MACROLID Drug Active Nausea 2017-0 MD E Class 4-14 Anderso ANTIBIOT 00:00: n ICS 00 TRIAMTER DRUG Active Swelling 2017-0 MD ELENA-HYDR 4-14 [facility] [place] 00:00: n HIAZID 00 ADHESIVE Drug Active Low Rash 2017-0 MD Class 4-14 Anderso 00:00: n 00 FLUTICAS DRUG Active Low Anxiety 2017-0 MD ONE 4-14 Anderso FUROATE- 00:00: n VILANTER 00 OL TIOTROPI DRUG Active High Sob 2017-0 MD UM INGREDI 4-14 Anderso BROM[facility] 00:00: n 00 ZILEUTON DRUG Active Low Anxiety 2017-0 MD INGREDI 4-14 Anderso 00:00: n 00 BUDESONI DRUG Active High Sob 2017-0 MD DE-FORMO 4-14 Anderso TEROL 00:00: n 00 FLUTICAS DRUG Active High Sob 2017-0 MD ONE INGREDI 4-14 Anderso 00:00: n 00 LATEX DRUG Active High Rash 2017-0 MD INGREDI 4-14 Anderso 00:00: n 00 TIOTROPI DRUG Active High Sob 2017-0 MD UM INGREDI 4-14 Anderso BROM[facility] 00:00: n 00 CETIRIZI DRUG Active Other 2017-0 MD NE INGREDI 4-14 Anderso 00:00: n 00 DEXLANSO DRUG Active Diarrhea 2017-0 MD PRAZOLE INGREDI 4-14 Anderso 00:00: n 00 MACROLID Drug Active Nausea 2017-0 MD E Class 4-14 Anderso ANTIBIOT 00:00: n ICS 00 CETIRIZI DRUG Active Other 2017-0 MD NE INGREDI 4-14 Anderso 00:00: n 00 TRIAMTER DRUG Active Swelling 2017-0 MD ELENA-HYDR 4-14 [facility] [place] 00:00: n HIAZID 00 ADHESIVE Drug Active Low Rash 2017-0 MD Class 4-14 Anderso 00:00: n 00 FLUTICAS DRUG Active Low Anxiety 2017-0 MD ONE 4-14 Anderso FUROATE- 00:00: n VILANTER 00 OL ZILEUTON DRUG Active Low Anxiety 2017-0 MD INGREDI 4-14 Anderso 00:00: n 00 BUDESONI DRUG Active High Sob 2017-0 MD DE-FORMO 4-14 Anderso TEROL 00:00: n 00 FLUTICAS DRUG Active High Sob 2017-0 MD ONE INGREDI 4-14 Anderso 00:00: n 00 LATEX DRUG Active High Rash 2017-0 MD INGREDI 4-14 Anderso 00:00: n 00 TIOTROPI DRUG Active High Sob 2017-0 MD UM INGREDI 4-14 Anderso BROMIDE 00:00: n 00 CETIRIZI DRUG Active Other 2017-0 MD NE INGREDI 4-14 Anderso 00:00: n 00 DEXLANSO DRUG Active Diarrhea 2017-0 MD PRAZOLE INGREDI 4-14 Anderso 00:00: n 00 DEXLANSO DRUG Active Diarrhea 2017-0 MD PRAZOLE INGREDI 4-14 Anderso 00:00: n 00 MACROLID Drug Active Nausea 2017-0 MD E Class 4-14 Anderso ANTIBIOT 00:00: n ICS 00 TRIAMTER DRUG Active Swelling 2017-0 MD ELENA-HYDR 4-14 [facility] [place] 00:00: n HIAZID 00 ADHESIVE Drug Active Low Rash 2017-0 MD Class 4-14 Anderso 00:00: n 00 FLUTICAS DRUG Active Low Anxiety 2017-0 MD ONE 4-14 Anderso FUROATE- 00:00: n VILANTER 00 OL ZILEUTON DRUG Active Low Anxiety 2017-0 MD INGREDI 4-14 Anderso 00:00: n 00 BUDESONI DRUG Active High Sob 2017-0 MD DE-FORMO 4-14 Anderso TEROL 00:00: n 00 FLUTICAS DRUG Active High Sob 2017-0 MD ONE INGREDI 4-14 Anderso 00:00: n 00 LATEX DRUG Active High Rash 2017-0 MD INGREDI 4-14 Anderso 00:00: n 00 MACROLID Drug Active Nausea 2017-0 MD E Class 4-14 Anderso ANTIBIOT 00:00: n ICS 00 TIOTROPI DRUG Active High Sob 2017-0 MD UM INGREDI 4-14 Anderso BROM[facility] 00:00: n 00 CETIRIZI DRUG Active Other 2017-0 MD NE INGREDI 4-14 Anderso 00:00: n 00 DEXLANSO DRUG Active Diarrhea 2017-0 MD PRAZOLE INGREDI 4-14 Anderso 00:00: n 00 MACROLID Drug Active Nausea 2017-0 MD E Class 4-14 Anderso ANTIBIOT 00:00: n ICS 00 BUDESONI DRUG Active High Sob 2017-0 MD DE-FORMO 4-14 Anderso TER[facility] 00:00: n 00 TRIAMTER DRUG Active Swelling 2017-0 MD ELENA-HYDR 4-14 [facility] [place] 00:00: n HIAZID 00 ADHESIVE Drug Active Low Rash 2017-0 MD Class 4-14 Anderso 00:00: n 00 FLUTICAS DRUG Active Low Anxiety 2017-0 MD ONE 4-14 Anderso FUROATE- 00:00: n VILANTER 00 OL ZILEUTON DRUG Active Low Anxiety 2017-0 MD INGREDI 4-14 Anderso 00:00: n 00 BUDESONI DRUG Active High Sob 2017-0 MD DE-FORMO 4-14 Anderso TEROL 00:00: n 00 FLUTICAS DRUG Active High Sob 2017-0 MD ONE INGREDI 4-14 Anderso 00:00: n 00 LATEX DRUG Active High Rash 2017-0 MD INGREDI 4-14 Anderso 00:00: n 00 TIOTROPI DRUG Active High Sob 2017-0 MD UM INGREDI 4-14 Anderso BROM[facility] 00:00: n 00 CETIRIZI DRUG Active Other 2017-0 MD NE INGREDI 4-14 Anderso 00:00: n 00 DEXLANSO DRUG Active Diarrhea 2017-0 MD PRAZOLE INGREDI 4-14 Anderso 00:00: n 00 MACROLID Drug Active Nausea 2017-0 MD E Class 4-14 Anderso ANTIBIOT 00:00: n ICS 00 TRIAMTER DRUG Active Swelling 2017-0 MD ELENA-HYDR 4-14 [facility] [place] 00:00: n HIAZID 00 ADHESIVE Drug Active Low Rash 2017-0 MD Class 4-14 Anderso 00:00: n 00 FLUTICAS DRUG Active Low Anxiety 2017-0 MD ONE 4-14 Anderso FUROATE- 00:00: n VILANTER 00 OL TRIAMTER DRUG Active Swelling 2017-0 MD ELENA-HYDR 4-14 [facility] [place] 00:00: n HIAZID 00 ZILEUTON DRUG Active Low Anxiety 2017-0 MD INGREDI 4-14 Anderso 00:00: n 00 BUDESONI DRUG Active High Sob 2017-0 MD DE-FORMO 4-14 Anderso TER[facility] 00:00: n 00 FLUTICAS DRUG Active High Sob 2017-0 MD ONE INGREDI 4-14 Anderso 00:00: n 00 LATEX DRUG Active High Rash 2017-0 MD INGREDI 4-14 Anderso 00:00: n 00 ADHESIVE Drug Active Low Rash 2017-0 MD Class 4-14 Anderso 00:00: n 00 TIOTROPI DRUG Active High Sob 2017-0 MD UM INGREDI 4-14 Anderso BROMIDE 00:00: n 00 CETIRIZI DRUG Active Other 2017-0 MD NE INGREDI 4-14 Anderso 00:00: n 00 DEXLANSO DRUG Active Diarrhea 2017-0 MD PRAZOLE INGREDI 4-14 Anderso 00:00: n 00 MACROLID Drug Active Nausea 2017-0 MD E Class 4-14 Anderso ANTIBIOT 00:00: n ICS 00 FLUTICAS DRUG Active Low Anxiety 2017-0 MD ONE 4-14 Anderso FUROATE- 00:00: n VILANTER 00 OL TRIAMTER DRUG Active Swelling 2017-0 MD ELENA-HYDR 4-14 [facility] [place] 00:00: n HIAZID 00 ADHESIVE Drug Active Low Rash 2017-0 MD Class 4-14 Anderso 00:00: n 00 FLUTICAS DRUG Active Low Anxiety 2017-0 MD ONE 4-14 Anderso FUROATE- 00:00: n VILANTER 00 OL ZILEUTON DRUG Active Low Anxiety 2017-0 MD INGREDI 4-14 Anderso 00:00: n 00 BUDESONI DRUG Active High Sob 2017-0 MD DE-FORMO 4-14 Anderso TEROL 00:00: n 00 FLUTICAS DRUG Active High Sob 2017-0 MD ONE INGREDI 4-14 Anderso 00:00: n 00 LATEX DRUG Active High Rash 2017-0 MD INGREDI 4-14 Anderso 00:00: n 00 TIOTROPI DRUG Active High Sob 2017-0 MD UM INGREDI 4-14 Anderso BROM[facility] 00:00: n 00 CETIRIZI DRUG Active Other 2017-0 MD NE INGREDI 4-14 Anderso 00:00: n 00 ZILEUTON DRUG Active Low Anxiety 2017-0 MD INGREDI 4-14 Anderso 00:00: n 00 DEXLANSO DRUG Active Diarrhea 2017-0 MD PRAZOLE INGREDI 4-14 Anderso 00:00: n 00 MACROLID Drug Active Nausea 2017-0 MD E Class 4-14 Anderso ANTIBIOT 00:00: n ICS 00 TRIAMTER DRUG Active Swelling 2017-0 MD ELENA-HYDR 4-14 [facility] [place] 00:00: n HIAZID 00 ADHESIVE Drug Active Low Rash 2017-0 MD Class 4-14 Anderso 00:00: n 00 FLUTICAS DRUG Active Low Anxiety 2017-0 MD ONE 4-14 Anderso FUROATE- 00:00: n VILANTER 00 OL ZILEUTON DRUG Active Low Anxiety 2017-0 MD INGREDI 4-14 Anderso 00:00: n 00 BUDESONI DRUG Active High Sob 2017-0 MD DE-FORMO 4-14 Anderso TEROL 00:00: n 00 FLUTICAS DRUG Active High Sob 2017-0 MD ONE INGREDI 4-14 Anderso 00:00: n 00 LATEX DRUG Active High Rash 2017-0 MD INGREDI 4-14 Anderso 00:00: n 00 TIOTROPI DRUG Active High Sob 2017-0 MD UM INGREDI 4-14 Anderso BROMIDE 00:00: n 00 CETIRIZI DRUG Active Other 2017-0 MD NE INGREDI 4-14 Anderso 00:00: n 00 DEXLANSO DRUG Active Diarrhea 2017-0 MD PRAZOLE INGREDI 4-14 Anderso 00:00: n 00 MACROLID Drug Active Nausea 2017-0 MD E Class 4-14 Anderso ANTIBIOT 00:00: n ICS 00 FLUTICAS DRUG Active High Sob 2017-0 MD ONE INGREDI 4-14 Anderso 00:00: n 00 BUDESONI DRUG Active High Sob 2017-0 MD DE-FORMO 4-14 Anderso TEROL 00:00: n 00 TRIAMTER DRUG Active Swelling 2017-0 MD ELENA-HYDR 4-14 [facility]o [place] 00:00: n HIAZID 00 ADHESIVE Drug Active Low Rash 2017-0 MD Class 4-14 Anderso 00:00: n 00 FLUTICAS DRUG Active Low Anxiety 2017-0 MD ONE 4-14 Anderso FUROATE- 00:00: n VILANTER 00 OL ZILEUTON DRUG Active Low Anxiety 2017-0 MD INGREDI 4-14 Anderso 00:00: n 00 BUDESONI DRUG Active High Sob 2017-0 MD DE-FORMO 4-14 Anderso TEROL 00:00: n 00 FLUTICAS DRUG Active High Sob 2017-0 MD ONE INGREDI 4-14 Anderso 00:00: n 00 FLUTICAS DRUG Active High Sob 2017-0 MD ONE INGREDI 4-14 Anderso 00:00: n 00 LATEX DRUG Active High Rash 2017-0 MD INGREDI 4-14 Anderso 00:00: n 00 TIOTROPI DRUG Active High Sob 2017-0 MD UM INGREDI 4-14 Anderso BROMIDE 00:00: n 00 CETIRIZI DRUG Active Other 2017-0 MD NE INGREDI 4-14 Anderso 00:00: n 00 LATEX DRUG Active High Rash 2017-0 MD INGREDI 4-14 Anderso 00:00: n 00 DEXLANSO DRUG Active Diarrhea 2017-0 MD PRAZOLE INGREDI 4-14 Anderso 00:00: n 00 MACROLID Drug Active Nausea 2017-0 MD E Class 4-14 Anderso ANTIBIOT 00:00: n ICS 00 TRIAMTER DRUG Active Swelling 2017-0 MD ELENA-HYDR 4-14 Anderso [place] 00:00: n HIAZID 00 ADHESIVE Drug Active Low Rash 2017-0 MD Class 4-14 Anderso 00:00: n 00 FLUTICAS DRUG Active Low Anxiety 2017-0 MD ONE 4-14 Anderso FUROATE- 00:00: n VILANTER 00 OL ZILEUTON DRUG Active Low Anxiety 2017-0 MD INGREDI 4-14 Anderso 00:00: n 00 BUDESONI DRUG Active High Sob 2017-0 MD DE-FORMO 4-14 Anderso TEROL 00:00: n 00 FLUTICAS DRUG Active High Sob 2017-0 MD ONE INGREDI 4-14 Anderso 00:00: n 00 LATEX DRUG Active High Rash 2017-0 MD INGREDI 4-14 Anderso 00:00: n 00 TIOTROPI DRUG Active High Sob 2017-0 MD UM INGREDI 4-14 Anderso BROMIDE 00:00: n 00 CETIRIZI DRUG Active Other 2017-0 MD NE INGREDI 4-14 Anderso 00:00: n 00 DEXLANSO DRUG Active Diarrhea 2017-0 MD PRAZOLE INGREDI 4-14 Anderso 00:00: n 00 MACROLID Drug Active Nausea 2017-0 MD E Class 4-14 Anderso ANTIBIOT 00:00: n ICS 00 TRIAMTER DRUG Active Swelling 2017-0 MD ELENA-HYDR 4-14 Anderso [place] 00:00: n HIAZID 00 ADHESIVE Drug Active Low Rash 2017-0 MD Class 4-14 Anderso 00:00: n 00 FLUTICAS DRUG Active Low Anxiety 2017-0 MD ONE 4-14 Anderso FUROATE- 00:00: n VILANTER 00 OL ZILEUTON DRUG Active Low Anxiety 2017-0 MD INGREDI 4-14 Anderso 00:00: n 00 BUDESONI DRUG Active High Sob 2017-0 MD DE-FORMO 4-14 Anderso TEROL 00:00: n 00 FLUTICAS DRUG Active High Sob 2017-0 MD ONE INGREDI 4-14 Anderso 00:00: n 00 LATEX DRUG Active High Rash 2017-0 MD INGREDI 4-14 Anderso 00:00: n 00 TIOTROPI DRUG Active High Sob 2017-0 MD UM INGREDI 4-14 Anderso BROMIDE 00:00: n 00 CETIRIZI DRUG Active Other 2017-0 MD NE INGREDI 4-14 Anderso 00:00: n 00 TIOTROPI DRUG Active High Sob 2017-0 MD UM INGREDI 4-14 Anderso BROMIDE 00:00: n 00 DEXLANSO DRUG Active Diarrhea 2017-0 MD PRAZOLE INGREDI 4-14 Anderso 00:00: n 00 MACROLID Drug Active Nausea 2017-0 MD E Class 4-14 Anderso ANTIBIOT 00:00: n ICS 00 TRIAMTER DRUG Active Swelling 2017-0 MD ELENA-HYDR 4-14 Anderso [place] 00:00: n HIAZID 00 ADHESIVE Drug Active Low Rash 2017-0 MD Class 4-14 Anderso 00:00: n 00 FLUTICAS DRUG Active Low Anxiety 2017-0 MD ONE 4-14 Anderso FUROATE- 00:00: n VILANTER 00 OL ZILEUTON DRUG Active Low Anxiety 2017-0 MD INGREDI 4-14 Anderso 00:00: n 00 BUDESONI DRUG Active High Sob 2017-0 MD DE-FORMO 4-14 Anderso TEROL 00:00: n 00 FLUTICAS DRUG Active High Sob 2017-0 MD ONE INGREDI 4-14 Anderso 00:00: n 00 LATEX DRUG Active High Rash 2017-0 MD INGREDI 4-14 Anderso 00:00: n 00 CETIRIZI DRUG Active Other 2017-0 MD NE INGREDI 4-14 Anderso 00:00: n 00 TIOTROPI DRUG Active High Sob 2017-0 MD UM INGREDI 4-14 Anderso BROMIDE 00:00: n 00 CETIRIZI DRUG Active Other 2017-0 MD NE INGREDI 4-14 Anderso 00:00: n 00 DEXLANSO DRUG Active Diarrhea 2017-0 MD PRAZOLE INGREDI 4-14 Anderso 00:00: n 00 MACROLID Drug Active Nausea 2017-0 MD E Class 4-14 Anderso ANTIBIOT 00:00: n ICS 00 TRIAMTER DRUG Active Swelling 2017-0 MD ELENA-HYDR 4-14 [place]o [place] 00:00: n HIAZID 00 ADHESIVE Drug Active Low Rash 2017-0 MD Class 4-14 Anderso 00:00: n 00 FLUTICAS DRUG Active Low Anxiety 2017-0 MD ONE 4-14 Anderso FUROATE- 00:00: n VILANTER 00 OL ZILEUTON DRUG Active Low Anxiety 2017-0 MD INGREDI 4-14 Anderso 00:00: n 00 BUDESONI DRUG Active High Sob 2017-0 MD DE-FORMO 4-14 Anderso TEROL 00:00: n 00 DEXLANSO DRUG Active Diarrhea 2017-0 MD PRAZOLE INGREDI 4-14 Anderso 00:00: n 00 FLUTICAS DRUG Active High Sob 2017-0 MD ONE INGREDI 4-14 Anderso 00:00: n 00 LATEX DRUG Active High Rash 2017-0 MD INGREDI 4-14 Anderso 00:00: n 00 TIOTROPI DRUG Active High Sob 2017-0 MD UM INGREDI 4-14 Anderso BROMIDE 00:00: n 00 CETIRIZI DRUG Active Other 2017-0 MD NE INGREDI 4-14 Anderso 00:00: n 00 DEXLANSO DRUG Active Diarrhea 2017-0 MD PRAZOLE INGREDI 4-14 Anderso 00:00: n 00 MACROLID Drug Active Nausea 2017-0 MD E Class 4-14 Anderso ANTIBIOT 00:00: n ICS 00 TRIAMTER DRUG Active Swelling 2017-0 MD ELENA-HYDR 4-14 Anderso [place] 00:00: n HIAZID 00 ADHESIVE Drug Active Low Rash 2017-0 MD Class 4-14 Anderso 00:00: n 00 FLUTICAS DRUG Active Low Anxiety 2017-0 MD ONE 4-14 Anderso FUROATE- 00:00: n VILANTER 00 OL MACROLID Drug Active Nausea 2017-0 MD E Class 4-14 Anderso ANTIBIOT 00:00: n ICS 00 ZILEUTON DRUG Active Low Anxiety 2017-0 MD INGREDI 4-14 Anderso 00:00: n 00 BUDESONI DRUG Active High Sob 2017-0 MD DE-FORMO 4-14 Anderso TEROL 00:00: n 00 FLUTICAS DRUG Active High Sob 2017-0 MD ONE INGREDI 4-14 Anderso 00:00: n 00 LATEX DRUG Active High Rash 2017-0 MD INGREDI 4-14 Anderso 00:00: n 00 TIOTROPI DRUG Active High Sob 2017-0 MD UM INGREDI 4-14 Anderso BROMIDE 00:00: n 00 CETIRIZI DRUG Active Other 2017-0 MD NE INGREDI 4-14 Anderso 00:00: n 00 DEXLANSO DRUG Active Diarrhea 2017-0 MD PRAZOLE INGREDI 4-14 Anderso 00:00: n 00 MACROLID Drug Active Nausea 2017-0 MD E Class 4-14 Anderso ANTIBIOT 00:00: n ICS 00 TRIAMTER DRUG Active Swelling 2017-0 MD ELENA-HYDR 4-14 Anderso [place] 00:00: n HIAZID 00 ADHESIVE Drug Active Low Rash 2017-0 MD Class 4-14 Anderso 00:00: n 00 FLUTICAS DRUG Active Low Anxiety 2017-0 MD ONE 4-14 Anderso FUROATE- 00:00: n VILANTER 00 OL ZILEUTON DRUG Active Low Anxiety 2017-0 MD INGREDI 4-14 Anderso 00:00: n 00 BUDESONI DRUG Active High Sob 2017-0 MD DE-FORMO 4-14 Anderso TEROL 00:00: n 00 FLUTICAS DRUG Active High Sob 2017-0 MD ONE INGREDI 4-14 Anderso 00:00: n 00 LATEX DRUG Active High Rash 2017-0 MD INGREDI 4-14 Anderso 00:00: n 00 TIOTROPI DRUG Active High Sob 2017-0 MD UM INGREDI 4-14 Anderso BROMIDE 00:00: n 00 CETIRIZI DRUG Active Other 2017-0 MD NE INGREDI 4-14 Anderso 00:00: n 00 TRIAMTER DRUG Active Swelling 2017-0 MD ELENA-HYDR 4-14 Anderso [place] 00:00: n HIAZID 00 DEXLANSO DRUG Active Diarrhea 2017-0 MD PRAZOLE INGREDI 4-14 Anderso 00:00: n 00 MACROLID Drug Active Nausea 2017-0 MD E Class 4-14 Anderso ANTIBIOT 00:00: n ICS 00 TRIAMTER DRUG Active Swelling 2017-0 MD ELENA-HYDR 4-14 Anderso [place] 00:00: n HIAZID 00 ADHESIVE Drug Active Low Rash 2017-0 MD Class 4-14 Anderso 00:00: n 00 FLUTICAS DRUG Active Low Anxiety 2017-0 MD ONE 4-14 Anderso FUROATE- 00:00: n VILANTER 00 OL ADHESIVE Drug Active Low Rash 2017-0 MD Class 4-14 Anderso 00:00: n 00 ZILEUTON DRUG Active Low Anxiety 2017-0 MD INGREDI 4-14 Anderso 00:00: n 00 BUDESONI DRUG Active High Sob 2017-0 MD DE-FORMO 4-14 Anderso TEROL 00:00: n 00 FLUTICAS DRUG Active High Sob 2017-0 MD ONE INGREDI 4-14 Anderso 00:00: n 00 LATEX DRUG Active High Rash 2017-0 MD INGREDI 4-14 Anderso 00:00: n 00 FLUTICAS DRUG Active Low Anxiety 2017-0 MD ONE 4-14 Anderso FUROATE- 00:00: n VILANTER 00 OL TIOTROPI DRUG Active High Sob 2017-0 MD UM INGREDI 4-14 Anderso BROMIDE 00:00: n 00 CETIRIZI DRUG Active Other 2017-0 MD NE INGREDI 4-14 Anderso 00:00: n 00 DEXLANSO DRUG Active Diarrhea 2017-0 MD PRAZOLE INGREDI 4-14 Anderso 00:00: n 00 MACROLID Drug Active Nausea 2017-0 MD E Class 4-14 Anderso ANTIBIOT 00:00: n ICS 00 LATEX DRUG Active High Rash 2017-0 MD INGREDI 4-14 Anderso 00:00: n 00 TRIAMTER DRUG Active Swelling 2017-0 MD ELENA-HYDR 4-14 Anderso [place] 00:00: n HIAZID 00 ADHESIVE Drug Active Low Rash 2017-0 MD Class 4-14 Anderso 00:00: n 00 FLUTICAS DRUG Active Low Anxiety 2017-0 MD ONE 4-14 Anderso FUROATE- 00:00: n VILANTER 00 OL ZILEUTON DRUG Active Low Anxiety 2017-0 MD INGREDI 4-14 Anderso 00:00: n 00 BUDESONI DRUG Active High Sob 2017-0 MD DE-FORMO 4-14 Anderso TEROL 00:00: n 00 ZILEUTON DRUG Active Low Anxiety 2017-0 MD INGREDI 4-14 Anderso 00:00: n 00 FLUTICAS DRUG Active High Sob 2017-0 MD ONE INGREDI 4-14 Anderso 00:00: n 00 LATEX DRUG Active High Rash 2017-0 MD INGREDI 4-14 Anderso 00:00: n 00 TIOTROPI DRUG Active High Sob 2017-0 MD UM INGREDI 4-14 Anderso BROMIDE 00:00: n 00 CETIRIZI DRUG Active Other 2017-0 MD NE INGREDI 4-14 Anderso 00:00: n 00 DEXLANSO DRUG Active Diarrhea 2017-0 MD PRAZOLE INGREDI 4-14 Anderso 00:00: n 00 MACROLID Drug Active Nausea 2017-0 MD E Class 4-14 Anderso ANTIBIOT 00:00: n ICS 00 TRIAMTER DRUG Active Swelling 2017-0 MD LEENA-HYDR 4-14 Anderso [place] 00:00: n HIAZID 00 ADHESIVE Drug Active Low Rash 2017-0 MD Class 4-14 Anderso 00:00: n 00 FLUTICAS DRUG Active Low Anxiety 2017-0 MD ONE 4-14 Anderso FUROATE- 00:00: n VILANTER 00 OL ZILEUTON DRUG Active Low Anxiety 2017-0 MD INGREDI 4-14 Anderso 00:00: n 00 BUDESONI DRUG Active High Sob 2017-0 MD DE-FORMO 4-14 Anderso TEROL 00:00: n 00 FLUTICAS DRUG Active High Sob 2017-0 MD ONE INGREDI 4-14 Anderso 00:00: n 00 LATEX DRUG Active High Rash 2017-0 MD INGREDI 4-14 Anderso 00:00: n 00 BUDESONI DRUG Active High Sob 2017-0 MD DE-FORMO 4-14 Anderso TEROL 00:00: n 00 TIOTROPI DRUG Active High Sob 2017-0 MD UM INGREDI 4-14 Anderso BROMIDE 00:00: n 00 CETIRIZI DRUG Active Other 2017-0 MD NE INGREDI 4-14 Anderso 00:00: n 00 DEXLANSO DRUG Active Diarrhea 2017-0 MD PRAZOLE INGREDI 4-14 Anderso 00:00: n 00 MACROLID Drug Active Nausea 2017-0 MD E Class 4-14 Anderso ANTIBIOT 00:00: n ICS 00 FLUTICAS DRUG Active High Sob 2017-0 MD ONE INGREDI 4-14 Anderso 00:00: n 00 TRIAMTER DRUG Active Swelling 2017-0 MD ELENA-HYDR 4-14 Anderso [place] 00:00: n HIAZID 00 ADHESIVE Drug Active Low Rash 2017-0 MD Class 4-14 Anderso 00:00: n 00 FLUTICAS DRUG Active Low Anxiety 2017-0 MD ONE 4-14 Anderso FUROATE- 00:00: n VILANTER 00 OL ZILEUTON DRUG Active Low Anxiety 2017-0 MD INGREDI 4-14 Anderso 00:00: n 00 BUDESONI DRUG Active High Sob 2017-0 MD DE-FORMO 4-14 Anderso TEROL 00:00: n 00 LATEX DRUG Active High Rash 2017-0 MD INGREDI 4-14 Anderso 00:00: n 00 FLUTICAS DRUG Active High Sob 2017-0 MD ONE INGREDI 4-14 Anderso 00:00: n 00 LATEX DRUG Active High Rash 2017-0 MD INGREDI 4-14 Anderso 00:00: n 00 TIOTROPI DRUG Active High Sob 2017-0 MD UM INGREDI 4-14 Anderso BROMIDE 00:00: n 00 CETIRIZI DRUG Active Other 2017-0 MD NE INGREDI 4-14 Anderso 00:00: n 00 DEXLANSO DRUG Active Diarrhea 2017-0 MD PRAZOLE INGREDI 4-14 Anderso 00:00: n 00 MACROLID Drug Active Nausea 2017-0 MD E Class 4-14 Anderso ANTIBIOT 00:00: n ICS 00 TRIAMTER DRUG Active Swelling 2017-0 MD ELENA-HYDR 4-14 Anderso [place] 00:00: n HIAZID 00 ADHESIVE Drug Active Low Rash 2017-0 MD Class 4-14 Anderso 00:00: n 00 FLUTICAS DRUG Active Low Anxiety 2017-0 MD ONE 4-14 Anderso FUROATE- 00:00: n VILANTER 00 OL ZILEUTON DRUG Active Low Anxiety 2017-0 MD INGREDI 4-14 Anderso 00:00: n 00 BUDESONI DRUG Active High Sob 2017-0 MD DE-FORMO 4-14 Anderso TEROL 00:00: n 00 FLUTICAS DRUG Active High Sob 2017-0 MD ONE INGREDI 4-14 Anderso 00:00: n 00 LATEX DRUG Active High Rash 2017-0 MD INGREDI 4-14 Anderso 00:00: n 00 TIOTROPI DRUG Active High Sob 2017-0 MD UM INGREDI 4-14 Anderso BROMIDE 00:00: n 00 CETIRIZI DRUG Active Other 2017-0 MD NE INGREDI 4-14 Anderso 00:00: n 00 DEXLANSO DRUG Active Diarrhea 2017-0 MD PRAZOLE INGREDI 4-14 Anderso 00:00: n 00 MACROLID Drug Active Nausea 2017-0 MD E Class 4-14 Anderso ANTIBIOT 00:00: n ICS 00 TRIAMTER DRUG Active Swelling 2017-0 MD ELENA-HYDR 4-14 Anderso [place] 00:00: n HIAZID 00 ADHESIVE Drug Active Low Rash 2017-0 MD Class 4-14 Anderso 00:00: n 00 FLUTICAS DRUG Active Low Anxiety 2017-0 MD ONE 4-14 Anderso FUROATE- 00:00: n VILANTER 00 OL ZILEUTON DRUG Active Low Anxiety 2017-0 MD INGREDI 4-14 Anderso 00:00: n 00 BUDESONI DRUG Active High Sob 2017-0 MD DE-FORMO 4-14 Anderso TEROL 00:00: n 00 TIOTROPI DRUG Active High Sob 2017-0 MD UM INGREDI 4-14 Anderso BROMIDE 00:00: n 00 FLUTICAS DRUG Active High Sob 2017-0 MD ONE INGREDI 4-14 Anderso 00:00: n 00 LATEX DRUG Active High Rash 2017-0 MD INGREDI 4-14 Anderso 00:00: n 00 TIOTROPI DRUG Active High Sob 2017-0 MD UM INGREDI 4-14 Anderso BROMIDE 00:00: n 00 CETIRIZI DRUG Active Other 2017-0 MD NE INGREDI 4-14 Anderso 00:00: n 00 DEXLANSO DRUG Active Diarrhea 2017-0 MD PRAZOLE INGREDI 4-14 Anderso 00:00: n 00 MACROLID Drug Active Nausea 2017-0 MD E Class 4-14 Anderso ANTIBIOT 00:00: n ICS 00 TRIAMTER DRUG Active Swelling 2017-0 MD ELENA-HYDR 4-14 Anderso [place] 00:00: n HIAZID 00 ADHESIVE Drug Active Low Rash 2017-0 MD Class 4-14 Anderso 00:00: n 00 FLUTICAS DRUG Active Low Anxiety 2017-0 MD ONE 4-14 Anderso FUROATE- 00:00: n VILANTER 00 OL CETIRIZI DRUG Active Other 2017-0 MD NE INGREDI 4-14 Anderso 00:00: n 00 ZILEUTON DRUG Active Low Anxiety 2017-0 MD INGREDI 4-14 Anderso 00:00: n 00 BUDESONI DRUG Active High Sob 2017-0 MD DE-FORMO 4-14 Anderso TEROL 00:00: n 00 FLUTICAS DRUG Active High Sob 2017-0 MD ONE INGREDI 4-14 Anderso 00:00: n 00 LATEX DRUG Active High Rash 2017-0 MD INGREDI 4-14 Anderso 00:00: n 00 TIOTROPI DRUG Active High Sob 2017-0 MD UM INGREDI 4-14 Anderso BROMIDE 00:00: n 00 CETIRIZI DRUG Active Other 2017-0 MD NE INGREDI 4-14 Anderso 00:00: n 00 DEXLANSO DRUG Active Diarrhea 2017-0 MD PRAZOLE INGREDI 4-14 Anderso 00:00: n 00 MACROLID Drug Active Nausea 2017-0 MD E Class 4-14 Anderso ANTIBIOT 00:00: n ICS 00 DEXLANSO DRUG Active Diarrhea 2017-0 MD PRAZOLE INGREDI 4-14 Anderso 00:00: n 00 TRIAMTER DRUG Active Swelling 2017-0 MD ELENA-HYDR 4-14 Anderso [place] 00:00: n HIAZID 00 ADHESIVE Drug Active Low Rash 2017-0 MD Class 4-14 Anderso 00:00: n 00 FLUTICAS DRUG Active Low Anxiety 2017-0 MD ONE 4-14 Anderso FUROATE- 00:00: n VILANTER 00 OL ZILEUTON DRUG Active Low Anxiety 2017-0 MD INGREDI 4-14 Anderso 00:00: n 00 BUDESONI DRUG Active High Sob 2017-0 MD DE-FORMO 4-14 Anderso TEROL 00:00: n 00 FLUTICAS DRUG Active High Sob 2017-0 MD ONE INGREDI 4-14 Anderso 00:00: n 00 LATEX DRUG Active High Rash 2017-0 MD INGREDI 4-14 Anderso 00:00: n 00 TIOTROPI DRUG Active High Sob 2017-0 MD UM INGREDI 4-14 Anderso BROMIDE 00:00: n 00 CETIRIZI DRUG Active Other 2017-0 MD NE INGREDI 4-14 Anderso 00:00: n 00 MACROLID Drug Active Nausea 2017-0 MD E Class 4-14 Anderso ANTIBIOT 00:00: n ICS 00 DEXLANSO DRUG Active Diarrhea 2017-0 MD PRAZOLE INGREDI 4-14 Anderso 00:00: n 00 MACROLID Drug Active Nausea 2017-0 MD E Class 4-14 Anderso ANTIBIOT 00:00: n ICS 00 TRIAMTER DRUG Active Swelling 2017-0 MD ELENA-HYDR 4-14 Anderso [place] 00:00: n HIAZID 00 ADHESIVE Drug Active Low Rash 2017-0 MD Class 4-14 Anderso 00:00: n 00 FLUTICAS DRUG Active Low Anxiety 2017-0 MD ONE 4-14 Anderso FUROATE- 00:00: n VILANTER 00 OL ZILEUTON DRUG Active Low Anxiety 2017-0 MD INGREDI 4-14 Anderso 00:00: n 00 BUDESONI DRUG Active High Sob 2017-0 MD DE-FORMO 4-14 Anderso TEROL 00:00: n 00 FLUTICAS DRUG Active High Sob 2017-0 MD ONE INGREDI 4-14 Anderso 00:00: n 00 LATEX DRUG Active High Rash 2017-0 MD INGREDI 4-14 Anderso 00:00: n 00 TIOTROPI DRUG Active High Sob 2017-0 MD UM INGREDI 4-14 Anderso BROM[place] 00:00: n 00 CETIRIZI DRUG Active Other 2017-0 MD NE INGREDI 4-14 Anderso 00:00: n 00 DEXLANSO DRUG Active Diarrhea 2017-0 MD PRAZOLE INGREDI 4-14 Anderso 00:00: n 00 MACROLID Drug Active Nausea 2017-0 MD E Class 4-14 Anderso ANTIBIOT 00:00: n ICS 00 TRIAMTER DRUG Active Swelling 2017-0 MD ELENA-HYDR 4-14 Anderso [place] 00:00: n HIAZID 00 ADHESIVE Drug Active Low Rash 2017-0 MD Class 4-14 Anderso 00:00: n 00 FLUTICAS DRUG Active Low Anxiety 2017-0 MD ONE 4-14 Anderso FUROATE- 00:00: n VILANTER 00 OL ZILEUTON DRUG Active Low Anxiety 2017-0 MD INGREDI 4-14 Anderso 00:00: n 00 BUDESONI DRUG Active High Sob 2017-0 MD DE-FORMO 4-14 Anderso TEROL 00:00: n 00 TRIAMTER DRUG Active Swelling 2017-0 MD ELENA-HYDR 4-14 Anderso [place] 00:00: n HIAZID 00 FLUTICAS DRUG Active High Sob 2017-0 MD ONE INGREDI 4-14 Anderso 00:00: n 00 LATEX DRUG Active High Rash 2017-0 MD INGREDI 4-14 Anderso 00:00: n 00 TIOTROPI DRUG Active High Sob 2017-0 MD UM INGREDI 4-14 Anderso BROM[place] 00:00: n 00 CETIRIZI DRUG Active Other 2017-0 MD NE INGREDI 4-14 Anderso 00:00: n 00 ADHESIVE Drug Active Low Rash 2017-0 MD Class 4-14 Anderso 00:00: n 00 DEXLANSO DRUG Active Diarrhea 2017-0 MD PRAZOLE INGREDI 4-14 Anderso 00:00: n 00 MACROLID Drug Active Nausea 2017-0 MD E Class 4-14 Anderso ANTIBIOT 00:00: n ICS 00 TRIAMTER DRUG Active Swelling 2017-0 MD ELENA-HYDR 4-14 Anderso [place] 00:00: n HIAZID 00 ADHESIVE Drug Active Low Rash 2017-0 MD Class 4-14 Anderso 00:00: n 00 FLUTICAS DRUG Active Low Anxiety 2017-0 MD ONE 4-14 Anderso FUROATE- 00:00: n VILANTER 00 OL FLUTICAS DRUG Active Low Anxiety 2017-0 MD ONE 4-14 Anderso FUROATE- 00:00: n VILANTER 00 OL ZILEUTON DRUG Active Low Anxiety 2017-0 MD INGREDI 4-14 Anderso 00:00: n 00 BUDESONI DRUG Active High Sob 2017-0 MD DE-FORMO 4-14 Anderso TEROL 00:00: n 00 FLUTICAS DRUG Active High Sob 2017-0 MD ONE INGREDI 4-14 Anderso 00:00: n 00 LATEX DRUG Active High Rash 2017-0 MD INGREDI 4-14 Anderso 00:00: n 00 TIOTROPI DRUG Active High Sob 2017-0 MD UM INGREDI 4-14 Anderso BROMIDE 00:00: n 00 CETIRIZI DRUG Active Other 2017-0 MD NE INGREDI 4-14 Anderso 00:00: n 00 DEXLANSO DRUG Active Diarrhea 2017-0 MD PRAZOLE INGREDI 4-14 Anderso 00:00: n 00 MACROLID Drug Active Nausea 2017-0 MD E Class 4-14 Anderso ANTIBIOT 00:00: n ICS 00 ZILEUTON DRUG Active Low Anxiety 2017-0 MD INGREDI 4-14 Anderso 00:00: n 00 TRIAMTER DRUG Active Swelling 2017-0 MD ELENA-HYDR 4-14 Anderso [place] 00:00: n HIAZID 00 ADHESIVE Drug Active Low Rash 2017-0 MD Class 4-14 Anderso 00:00: n 00 FLUTICAS DRUG Active Low Anxiety 2017-0 MD ONE 4-14 Anderso FUROATE- 00:00: n VILANTER 00 OL ZILEUTON DRUG Active Low Anxiety 2017-0 MD INGREDI 4-14 Anderso 00:00: n 00 BUDESONI DRUG Active High Sob 2017-0 MD DE-FORMO 4-14 Anderso TEROL 00:00: n 00 FLUTICAS DRUG Active High Sob 2017-0 MD ONE INGREDI 4-14 Anderso 00:00: n 00 LATEX DRUG Active High Rash 2017-0 MD INGREDI 4-14 Anderso 00:00: n 00 TIOTROPI DRUG Active High Sob 2017-0 MD UM INGREDI 4-14 Anderso BROMIDE 00:00: n 00 CETIRIZI DRUG Active Other 2017-0 MD NE INGREDI 4-14 Anderso 00:00: n 00 DEXLANSO DRUG Active Diarrhea 2017-0 MD PRAZOLE INGREDI 4-14 Anderso 00:00: n 00 MACROLID Drug Active Nausea 2017-0 MD E Class 4-14 Anderso ANTIBIOT 00:00: n ICS 00 TRIAMTER DRUG Active Swelling 2017-0 MD ELENA-HYDR 4-14 Anderso [place] 00:00: n HIAZID 00 ADHESIVE Drug Active Low Rash 2017-0 MD Class 4-14 Anderso 00:00: n 00 FLUTICAS DRUG Active Low Anxiety 2017-0 MD ONE 4-14 Anderso FUROATE- 00:00: n VILANTER 00 OL ZILEUTON DRUG Active Low Anxiety 2017-0 MD INGREDI 4-14 Anderso 00:00: n 00 BUDESONI DRUG Active High Sob 2017-0 MD DE-FORMO 4-14 Anderso TEROL 00:00: n 00 FLUTICAS DRUG Active High Sob 2017-0 MD ONE INGREDI 4-14 Anderso 00:00: n 00 LATEX DRUG Active High Rash 2017-0 MD INGREDI 4-14 Anderso 00:00: n 00 BUDESONI DRUG Active High Sob 2017-0 MD DE-FORMO 4-14 Anderso TEROL 00:00: n 00 TIOTROPI DRUG Active High Sob 2017-0 MD UM INGREDI 4-14 Anderso BROMIDE 00:00: n 00 CETIRIZI DRUG Active Other 2017-0 MD NE INGREDI 4-14 Anderso 00:00: n 00 DEXLANSO DRUG Active Diarrhea 2017-0 MD PRAZOLE INGREDI 4-14 Anderso 00:00: n 00 MACROLID Drug Active Nausea 2017-0 MD E Class 4-14 Anderso ANTIBIOT 00:00: n ICS 00 FLUTICAS DRUG Active High Sob 2017-0 MD ONE INGREDI 4-14 Anderso 00:00: n 00 TRIAMTER DRUG Active Swelling 2017-0 MD ELENA-HYDR 4-14 Anderso [place] 00:00: n HIAZID 00 ADHESIVE Drug Active Low Rash 2017-0 MD Class 4-14 Anderso 00:00: n 00 FLUTICAS DRUG Active Low Anxiety 2017-0 MD ONE 4-14 Anderso FUROATE- 00:00: n VILANTER 00 OL ZILEUTON DRUG Active Low Anxiety 2017-0 MD INGREDI 4-14 Anderso 00:00: n 00 BUDESONI DRUG Active High Sob 2017-0 MD DE-FORMO 4-14 Anderso TEROL 00:00: n 00 LATEX DRUG Active High Rash 2017-0 MD INGREDI 4-14 Anderso 00:00: n 00 FLUTICAS DRUG Active High Sob 2017-0 MD ONE INGREDI 4-14 Anderso 00:00: n 00 LATEX DRUG Active High Rash 2017-0 MD INGREDI 4-14 Anderso 00:00: n 00 TIOTROPI DRUG Active High Sob 2017-0 MD UM INGREDI 4-14 Anderso BROMIDE 00:00: n 00 CETIRIZI DRUG Active Other 2017-0 MD NE INGREDI 4-14 Anderso 00:00: n 00 DEXLANSO DRUG Active Diarrhea 2017-0 MD PRAZOLE INGREDI 4-14 Anderso 00:00: n 00 MACROLID Drug Active Nausea 2017-0 MD E Class 4-14 Anderso ANTIBIOT 00:00: n ICS 00 TRIAMTER DRUG Active Swelling 2017-0 MD ELENA-HYDR 4-14 Anderso [place] 00:00: n HIAZID 00 ADHESIVE Drug Active Low Rash 2017-0 MD Class 4-14 Anderso 00:00: n 00 FLUTICAS DRUG Active Low Anxiety 2017-0 MD ONE 4-14 Anderso FUROATE- 00:00: n VILANTER 00 OL ZILEUTON DRUG Active Low Anxiety 2017-0 MD INGREDI 4-14 Anderso 00:00: n 00 BUDESONI DRUG Active High Sob 2017-0 MD DE-FORMO 4-14 Anderso TEROL 00:00: n 00 FLUTICAS DRUG Active High Sob 2017-0 MD ONE INGREDI 4-14 Anderso 00:00: n 00 LATEX DRUG Active High Rash 2017-0 MD INGREDI 4-14 Anderso 00:00: n 00 TIOTROPI DRUG Active High Sob 2017-0 MD UM INGREDI 4-14 Anderso BROMIDE 00:00: n 00 CETIRIZI DRUG Active Other 2017-0 MD NE INGREDI 4-14 Anderso 00:00: n 00 DEXLANSO DRUG Active Diarrhea 2017-0 MD PRAZOLE INGREDI 4-14 Anderso 00:00: n 00 MACROLID Drug Active Nausea 2017-0 MD E Class 4-14 Anderso ANTIBIOT 00:00: n ICS 00 TRIAMTER DRUG Active Swelling 2017-0 MD ELENA-HYDR 4-14 Anderso [place] 00:00: n HIAZID 00 ADHESIVE Drug Active Low Rash 2017-0 MD Class 4-14 Anderso 00:00: n 00 FLUTICAS DRUG Active Low Anxiety 2017-0 MD ONE 4-14 Anderso FUROATE- 00:00: n VILANTER 00 OL ZILEUTON DRUG Active Low Anxiety 2017-0 MD INGREDI 4-14 Anderso 00:00: n 00 BUDESONI DRUG Active High Sob 2017-0 MD DE-FORMO 4-14 Anderso TEROL 00:00: n 00 TIOTROPI DRUG Active High Sob 2017-0 MD UM INGREDI 4-14 Anderso BROMIDE 00:00: n 00 FLUTICAS DRUG Active High Sob 2017-0 MD ONE INGREDI 4-14 Anderso 00:00: n 00 LATEX DRUG Active High Rash 2017-0 MD INGREDI 4-14 Anderso 00:00: n 00 TIOTROPI DRUG Active High Sob 2017-0 MD UM INGREDI 4-14 Anderso BROMIDE 00:00: n 00 CETIRIZI DRUG Active Other 2017-0 MD NE INGREDI 4-14 Anderso 00:00: n 00 DEXLANSO DRUG Active Diarrhea 2017-0 MD PRAZOLE INGREDI 4-14 Anderso 00:00: n 00 MACROLID Drug Active Nausea 2017-0 MD E Class 4-14 Anderso ANTIBIOT 00:00: n ICS 00 TRIAMTER DRUG Active Swelling 2017-0 MD ELENA-HYDR 4-14 Anderso [place] 00:00: n HIAZID 00 ADHESIVE Drug Active Low Rash 2017-0 MD Class 4-14 Anderso 00:00: n 00 FLUTICAS DRUG Active Low Anxiety 2017-0 MD ONE 4-14 Anderso FUROATE- 00:00: n VILANTER 00 OL CETIRIZI DRUG Active Other 2017-0 MD NE INGREDI 4-14 Anderso 00:00: n 00 ZILEUTON DRUG Active Low Anxiety 2017-0 MD INGREDI 4-14 Anderso 00:00: n 00 BUDESONI DRUG Active High Sob 2017-0 MD DE-FORMO 4-14 Anderso TEROL 00:00: n 00 FLUTICAS DRUG Active High Sob 2017-0 MD ONE INGREDI 4-14 Anderso 00:00: n 00 LATEX DRUG Active High Rash 2017-0 MD INGREDI 4-14 Anderso 00:00: n 00 TIOTROPI DRUG Active High Sob 2017-0 MD UM INGREDI 4-14 Anderso BROMIDE 00:00: n 00 CETIRIZI DRUG Active Other 2017-0 MD NE INGREDI 4-14 Anderso 00:00: n 00 DEXLANSO DRUG Active Diarrhea 2017-0 MD PRAZOLE INGREDI 4-14 Anderso 00:00: n 00 MACROLID Drug Active Nausea 2017-0 MD E Class 4-14 Anderso ANTIBIOT 00:00: n ICS 00 DEXLANSO DRUG Active Diarrhea 2017-0 MD PRAZOLE INGREDI 4-14 Anderso 00:00: n 00 TRIAMTER DRUG Active Swelling 2017-0 MD ELENA-HYDR 4-14 Anderso [place] 00:00: n HIAZID 00 ADHESIVE Drug Active Low Rash 2017-0 MD Class 4-14 Anderso 00:00: n 00 FLUTICAS DRUG Active Low Anxiety 2017-0 MD ONE 4-14 Anderso FUROATE- 00:00: n VILANTER 00 OL ZILEUTON DRUG Active Low Anxiety 2017-0 MD INGREDI 4-14 Anderso 00:00: n 00 BUDESONI DRUG Active High Sob 2017-0 MD DE-FORMO 4-14 Anderso TEROL 00:00: n 00 FLUTICAS DRUG Active High Sob 2017-0 MD ONE INGREDI 4-14 Anderso 00:00: n 00 LATEX DRUG Active High Rash 2017-0 MD INGREDI 4-14 Anderso 00:00: n 00 TIOTROPI DRUG Active High Sob 2017-0 MD UM INGREDI 4-14 Anderso BROMIDE 00:00: n 00 CETIRIZI DRUG Active Other 2017-0 MD NE INGREDI 4-14 Anderso 00:00: n 00 MACROLID Drug Active Nausea 2017-0 MD E Class 4-14 Anderso ANTIBIOT 00:00: n ICS 00 DEXLANSO DRUG Active Diarrhea 2017-0 MD PRAZOLE INGREDI 4-14 Anderso 00:00: n 00 MACROLID Drug Active Nausea 2017-0 MD E Class 4-14 Anderso ANTIBIOT 00:00: n ICS 00 TRIAMTER DRUG Active Swelling 2017-0 MD ELENA-HYDR 4-14 Anderso [place] 00:00: n HIAZID 00 ADHESIVE Drug Active Low Rash 2017-0 MD Class 4-14 Anderso 00:00: n 00 FLUTICAS DRUG Active Low Anxiety 2017-0 MD ONE 4-14 Anderso FUROATE- 00:00: n VILANTER 00 OL ZILEUTON DRUG Active Low Anxiety 2017-0 MD INGREDI 4-14 Anderso 00:00: n 00 BUDESONI DRUG Active High Sob 2017-0 MD DE-FORMO 4-14 Anderso TEROL 00:00: n 00 FLUTICAS DRUG Active High Sob 2017-0 MD ONE INGREDI 4-14 Anderso 00:00: n 00 LATEX DRUG Active High Rash 2017-0 MD INGREDI 4-14 Anderso 00:00: n 00 TIOTROPI DRUG Active High Sob 2017-0 MD UM INGREDI 4-14 Anderso BROMIDE 00:00: n 00 CETIRIZI DRUG Active Other 2017-0 MD NE INGREDI 4-14 Anderso 00:00: n 00 DEXLANSO DRUG Active Diarrhea 2017-0 MD PRAZOLE INGREDI 4-14 Anderso 00:00: n 00 MACROLID Drug Active Nausea 2017-0 MD E Class 4-14 Anderso ANTIBIOT 00:00: n ICS 00 TRIAMTER DRUG Active Swelling 2017-0 MD ELENA-HYDR 4-14 Anderso [place] 00:00: n HIAZID 00 ADHESIVE Drug Active Low Rash 2017-0 MD Class 4-14 Anderso 00:00: n 00 FLUTICAS DRUG Active Low Anxiety 2017-0 MD ONE 4-14 Anderso FUROATE- 00:00: n VILANTER 00 OL ZILEUTON DRUG Active Low Anxiety 2017-0 MD INGREDI 4-14 Anderso 00:00: n 00 BUDESONI DRUG Active High Sob 2017-0 MD DE-FORMO 4-14 Anderso TEROL 00:00: n 00 TRIAMTER DRUG Active Swelling 2017-0 MD ELENA-HYDR 4-14 Anderso [place] 00:00: n HIAZID 00 FLUTICAS DRUG Active High Sob 2017-0 MD ONE INGREDI 4-14 Anderso 00:00: n 00 LATEX DRUG Active High Rash 2017-0 MD INGREDI 4-14 Anderso 00:00: n 00 TIOTROPI DRUG Active High Sob 2017-0 MD UM INGREDI 4-14 Anderso BROMIDE 00:00: n 00 CETIRIZI DRUG Active Other 2017-0 MD NE INGREDI 4-14 Anderso 00:00: n 00 ADHESIVE Drug Active Low Rash 2017-0 MD Class 4-14 Anderso 00:00: n 00 DEXLANSO DRUG Active Diarrhea 2017-0 MD PRAZOLE INGREDI 4-14 Anderso 00:00: n 00 MACROLID Drug Active Nausea 2017-0 MD E Class 4-14 Anderso ANTIBIOT 00:00: n ICS 00 TRIAMTER DRUG Active Swelling 2017-0 MD ELENA-HYDR 4-14 Anderso [place] 00:00: n HIAZID 00 ADHESIVE Drug Active Low Rash 2017-0 MD Class 4-14 Anderso 00:00: n 00 FLUTICAS DRUG Active Low Anxiety 2017-0 MD ONE 4-14 Anderso FUROATE- 00:00: n VILANTER 00 OL FLUTICAS DRUG Active Low Anxiety 2017-0 MD ONE 4-14 Anderso FUROATE- 00:00: n VILANTER 00 OL ZILEUTON DRUG Active Low Anxiety 2017-0 MD INGREDI 4-14 Anderso 00:00: n 00 BUDESONI DRUG Active High Sob 2017-0 MD DE-FORMO 4-14 Anderso TEROL 00:00: n 00 FLUTICAS DRUG Active High Sob 2017-0 MD ONE INGREDI 4-14 Anderso 00:00: n 00 LATEX DRUG Active High Rash 2017-0 MD INGREDI 4-14 Anderso 00:00: n 00 TIOTROPI DRUG Active High Sob 2017-0 MD UM INGREDI 4-14 Anderso BROMIDE 00:00: n 00 CETIRIZI DRUG Active Other 2017-0 MD NE INGREDI 4-14 Anderso 00:00: n 00 DEXLANSO DRUG Active Diarrhea 2017-0 MD PRAZOLE INGREDI 4-14 Anderso 00:00: n 00 MACROLID Drug Active Nausea 2017-0 MD E Class 4-14 Anderso ANTIBIOT 00:00: n ICS 00 TIOTROPI DRUG Active High Sob 2017-0 MD UM INGREDI 4-14 Anderso BROMIDE 00:00: n 00 ZILEUTON DRUG Active Low Anxiety 2017-0 MD INGREDI 4-14 Anderso 00:00: n 00 TRIAMTER DRUG Active Swelling 2017-0 MD ELEAN-HYDR 4-14 [place] [place] 00:00: n HIAZID 00 ADHESIVE Drug Active Low Rash 2017-0 MD Class 4-14 Anderso 00:00: n 00 FLUTICAS DRUG Active Low Anxiety 2017-0 MD ONE 4-14 Anderso FUROATE- 00:00: n VILANTER 00 OL ZILEUTON DRUG Active Low Anxiety 2017-0 MD INGREDI 4-14 Anderso 00:00: n 00 BUDESONI DRUG Active High Sob 2017-0 MD DE-FORMO 4-14 Anderso TEROL 00:00: n 00 FLUTICAS DRUG Active High Sob 2017-0 MD ONE INGREDI 4-14 Anderso 00:00: n 00 LATEX DRUG Active High Rash 2017-0 MD INGREDI 4-14 Anderso 00:00: n 00 TIOTROPI DRUG Active High Sob 2017-0 MD UM INGREDI 4-14 Anderso BROMIDE 00:00: n 00 CETIRIZI DRUG Active Other 2017-0 MD NE INGREDI 4-14 Anderso 00:00: n 00 DEXLANSO DRUG Active Diarrhea 2017-0 MD PRAZOLE INGREDI 4-14 Anderso 00:00: n 00 MACROLID Drug Active Nausea 2017-0 MD E Class 4-14 Anderso ANTIBIOT 00:00: n ICS 00 TRIAMTER DRUG Active Swelling 2017-0 MD ELENA-HYDR 4-14 [place] [place] 00:00: n HIAZID 00 ADHESIVE Drug Active Low Rash 2017-0 MD Class 4-14 Anderso 00:00: n 00 FLUTICAS DRUG Active Low Anxiety 2017-0 MD ONE 4-14 Anderso FUROATE- 00:00: n VILANTER 00 OL ZILEUTON DRUG Active Low Anxiety 2017-0 MD INGREDI 4-14 Anderso 00:00: n 00 BUDESONI DRUG Active High Sob 2017-0 MD DE-FORMO 4-14 Anderso TEROL 00:00: n 00 FLUTICAS DRUG Active High Sob 2017-0 MD ONE INGREDI 4-14 Anderso 00:00: n 00 LATEX DRUG Active High Rash 2017-0 MD INGREDI 4-14 Anderso 00:00: n 00 BUDESONI DRUG Active High Sob 2017-0 MD DE-FORMO 4-14 Anderso TEROL 00:00: n 00 TIOTROPI DRUG Active High Sob 2017-0 MD UM INGREDI 4-14 Anderso BROMIDE 00:00: n 00 CETIRIZI DRUG Active Other 2017-0 MD NE INGREDI 4-14 Anderso 00:00: n 00 DEXLANSO DRUG Active Diarrhea 2017-0 MD PRAZOLE INGREDI 4-14 Anderso 00:00: n 00 MACROLID Drug Active Nausea 2017-0 MD E Class 4-14 Anderso ANTIBIOT 00:00: n ICS 00 FLUTICAS DRUG Active High Sob 2017-0 MD ONE INGREDI 4-14 Anderso 00:00: n 00 TRIAMTER DRUG Active Swelling 2017-0 MD ELENA-HYDR 4-14 Anderso [place] 00:00: n HIAZID 00 ADHESIVE Drug Active Low Rash 2017-0 MD Class 4-14 Anderso 00:00: n 00 FLUTICAS DRUG Active Low Anxiety 2017-0 MD ONE 4-14 Anderso FUROATE- 00:00: n VILANTER 00 OL ZILEUTON DRUG Active Low Anxiety 2017-0 MD INGREDI 4-14 Anderso 00:00: n 00 BUDESONI DRUG Active High Sob 2017-0 MD DE-FORMO 4-14 Anderso TEROL 00:00: n 00 LATEX DRUG Active High Rash 2017-0 MD INGREDI 4-14 Anderso 00:00: n 00 FLUTICAS DRUG Active High Sob 2017-0 MD ONE INGREDI 4-14 Anderso 00:00: n 00 LATEX DRUG Active High Rash 2017-0 MD INGREDI 4-14 Anderso 00:00: n 00 TIOTROPI DRUG Active High Sob 2017-0 MD UM INGREDI 4-14 Anderso BROMIDE 00:00: n 00 CETIRIZI DRUG Active Other 2017-0 MD NE INGREDI 4-14 Anderso 00:00: n 00 DEXLANSO DRUG Active Diarrhea 2017-0 MD PRAZOLE INGREDI 4-14 Anderso 00:00: n 00 MACROLID Drug Active Nausea 2017-0 MD E Class 4-14 Anderso ANTIBIOT 00:00: n ICS 00 TRIAMTER DRUG Active Swelling 2017-0 MD ELENA-HYDR 4-14 Anderso [place] 00:00: n HIAZID 00 ADHESIVE Drug Active Low Rash 2017-0 MD Class 4-14 Anderso 00:00: n 00 FLUTICAS DRUG Active Low Anxiety 2017-0 MD ONE 4-14 Anderso FUROATE- 00:00: n VILANTER 00 OL ZILEUTON DRUG Active Low Anxiety 2017-0 MD INGREDI 4-14 Anderso 00:00: n 00 BUDESONI DRUG Active High Sob 2017-0 MD DE-FORMO 4-14 Anderso TEROL 00:00: n 00 FLUTICAS DRUG Active High Sob 2017-0 MD ONE INGREDI 4-14 Anderso 00:00: n 00 LATEX DRUG Active High Rash 2017-0 MD INGREDI 4-14 Anderso 00:00: n 00 TIOTROPI DRUG Active High Sob 2017-0 MD UM INGREDI 4-14 Anderso BROMIDE 00:00: n 00 CETIRIZI DRUG Active Other 2017-0 MD NE INGREDI 4-14 Anderso 00:00: n 00 DEXLANSO DRUG Active Diarrhea 2017-0 MD PRAZOLE INGREDI 4-14 Anderso 00:00: n 00 MACROLID Drug Active Nausea 2017-0 MD E Class 4-14 Anderso ANTIBIOT 00:00: n ICS 00 BANANA DRUG Active Other 2017-0 MD INGREDI 4-14 Anderso 00:00: n 00 TRIAMTER DRUG Active Swelling 2017-0 MD ELENA-HYDR 4-14 Anderso [place] 00:00: n HIAZID 00 ADHESIVE Drug Active Low Rash 2017-0 MD Class 4-14 Anderso 00:00: n 00 FLUTICAS DRUG Active Low Anxiety 2017-0 MD ONE 4-14 Anderso FUROATE- 00:00: n VILANTER 00 OL ZILEUTON DRUG Active Low Anxiety 2017-0 MD INGREDI 4-14 Anderso 00:00: n 00 TIOTROPI DRUG Active High Sob 2017-0 MD UM INGREDI 4-14 Anderso BROMIDE 00:00: n 00 BUDESONI DRUG Active High Sob 2017-0 MD DE-FORMO 4-14 Anderso TEROL 00:00: n 00 FLUTICAS DRUG Active High Sob 2017-0 MD ONE INGREDI 4-14 Anderso 00:00: n 00 LATEX DRUG Active High Rash 2017-0 MD INGREDI 4-14 Anderso 00:00: n 00 TIOTROPI DRUG Active High Sob 2017-0 MD UM INGREDI 4-14 Anderso BROMIDE 00:00: n 00 CETIRIZI DRUG Active Other 2017-0 MD NE INGREDI 4-14 Anderso 00:00: n 00 DEXLANSO DRUG Active Diarrhea 2017-0 MD PRAZOLE INGREDI 4-14 Anderso 00:00: n 00 MACROLID Drug Active Nausea 2017-0 MD E Class 4-14 Anderso ANTIBIOT 00:00: n ICS 00 TRIAMTER DRUG Active Swelling 2017-0 MD ELENA-HYDR 4-14 Anderso [place] 00:00: n HIAZID 00 CETIRIZI DRUG Active Other 2017-0 MD NE INGREDI 4-14 Anderso 00:00: n 00 ADHESIVE Drug Active Low Rash 2017-0 MD Class 4-14 Anderso 00:00: n 00 FLUTICAS DRUG Active Low Anxiety 2017-0 MD ONE 4-14 Anderso FUROATE- 00:00: n VILANTER 00 OL ZILEUTON DRUG Active Low Anxiety 2017-0 MD INGREDI 4-14 Anderso 00:00: n 00 BUDESONI DRUG Active High Sob 2017-0 MD DE-FORMO 4-14 Anderso TEROL 00:00: n 00 FLUTICAS DRUG Active High Sob 2017-0 MD ONE INGREDI 4-14 Anderso 00:00: n 00 LATEX DRUG Active High Rash 2017-0 MD INGREDI 4-14 Anderso 00:00: n 00 TIOTROPI DRUG Active High Sob 2017-0 MD UM INGREDI 4-14 Anderso BROMIDE 00:00: n 00 CETIRIZI DRUG Active Other 2017-0 MD NE INGREDI 4-14 Anderso 00:00: n 00 DEXLANSO DRUG Active Diarrhea 2017-0 MD PRAZOLE INGREDI 4-14 Anderso 00:00: n 00 DEXLANSO DRUG Active Diarrhea 2017-0 MD PRAZOLE INGREDI 4-14 Anderso 00:00: n 00 MACROLID Drug Active Nausea 2017-0 MD E Class 4-14 Anderso ANTIBIOT 00:00: n ICS 00 TRIAMTER DRUG Active Swelling 2017-0 MD ELENA-HYDR 4-14 Anderso [place] 00:00: n HIAZID 00 ADHESIVE Drug Active Low Rash 2017-0 MD Class 4-14 Anderso 00:00: n 00 FLUTICAS DRUG Active Low Anxiety 2017-0 MD ONE 4-14 Anderso FUROATE- 00:00: n VILANTER 00 OL ZILEUTON DRUG Active Low Anxiety 2017-0 MD INGREDI 4-14 Anderso 00:00: n 00 BUDESONI DRUG Active High Sob 2017-0 MD DE-FORMO 4-14 Anderso TEROL 00:00: n 00 FLUTICAS DRUG Active High Sob 2017-0 MD ONE INGREDI 4-14 Anderso 00:00: n 00 LATEX DRUG Active High Rash 2017-0 MD INGREDI 4-14 Anderso 00:00: n 00 TIOTROPI DRUG Active High Sob 2017-0 MD UM INGREDI 4-14 Anderso BROMIDE 00:00: n 00 MACROLID Drug Active Nausea 2017-0 MD E Class 4-14 Anderso ANTIBIOT 00:00: n ICS 00 CETIRIZI DRUG Active Other 2017-0 MD NE INGREDI 4-14 Anderso 00:00: n 00 DEXLANSO DRUG Active Diarrhea 2017-0 MD PRAZOLE INGREDI 4-14 Anderso 00:00: n 00 MACROLID Drug Active Nausea 2017-0 MD E Class 4-14 Anderso ANTIBIOT 00:00: n ICS 00 TRIAMTER DRUG Active Swelling 2017-0 MD ELENA-HYDR 4-14 Anderso [place] 00:00: n HIAZID 00 ADHESIVE Drug Active Low Rash 2017-0 MD Class 4-14 Anderso 00:00: n 00 FLUTICAS DRUG Active Low Anxiety 2017-0 MD ONE 4-14 Anderso FUROATE- 00:00: n VILANTER 00 OL ZILEUTON DRUG Active Low Anxiety 2017-0 MD INGREDI 4-14 Anderso 00:00: n 00 BUDESONI DRUG Active High Sob 2017-0 MD DE-FORMO 4-14 Anderso TEROL 00:00: n 00 FLUTICAS DRUG Active High Sob 2017-0 MD ONE INGREDI 4-14 Anderso 00:00: n 00 LATEX DRUG Active High Rash 2017-0 MD INGREDI 4-14 Anderso 00:00: n 00 TIOTROPI DRUG Active High Sob 2017-0 MD UM INGREDI 4-14 Anderso BROMIDE 00:00: n 00 CETIRIZI DRUG Active Other 2017-0 MD NE INGREDI 4-14 Anderso 00:00: n 00 DEXLANSO DRUG Active Diarrhea 2017-0 MD PRAZOLE INGREDI 4-14 Anderso 00:00: n 00 MACROLID Drug Active Nausea 2017-0 MD E Class 4-14 Anderso ANTIBIOT 00:00: n ICS 00 TRIAMTER DRUG Active Swelling 2017-0 MD ELENA-HYDR 4-14 Anderso [place] 00:00: n HIAZID 00 ADHESIVE Drug Active Low Rash 2017-0 MD Class 4-14 Anderso 00:00: n 00 FLUTICAS DRUG Active Low Anxiety 2017-0 MD ONE 4-14 Anderso FUROATE- 00:00: n VILANTER 00 OL ZILEUTON DRUG Active Low Anxiety 2017-0 MD INGREDI 4-14 Anderso 00:00: n 00 TRIAMTER DRUG Active Swelling 2017-0 MD ELENA-HYDR 4-14 Anderso [place] 00:00: n HIAZID 00 BUDESONI DRUG Active High Sob 2017-0 MD DE-FORMO 4-14 Anderso TEROL 00:00: n 00 FLUTICAS DRUG Active High Sob 2017-0 MD ONE INGREDI 4-14 Anderso 00:00: n 00 LATEX DRUG Active High Rash 2017-0 MD INGREDI 4-14 Anderso 00:00: n 00 TIOTROPI DRUG Active High Sob 2017-0 MD UM INGREDI 4-14 Anderso BROMIDE 00:00: n 00 ADHESIVE Drug Active Low Rash 2017-0 MD Class 4-14 Anderso 00:00: n 00 CETIRIZI DRUG Active Other 2017-0 MD NE INGREDI 4-14 Anderso 00:00: n 00 DEXLANSO DRUG Active Diarrhea 2017-0 MD PRAZOLE INGREDI 4-14 Anderso 00:00: n 00 MACROLID Drug Active Nausea 2017-0 MD E Class 4-14 Anderso ANTIBIOT 00:00: n ICS 00 TRIAMTER DRUG Active Swelling 2017-0 MD ELENA-HYDR 4-14 Anderso [place] 00:00: n HIAZID 00 FLUTICAS DRUG Active Low Anxiety 2017-0 MD ONE 4-14 Anderso FUROATE- 00:00: n VILANTER 00 OL ADHESIVE Drug Active Low Rash 2017-0 MD Class 4-14 Anderso 00:00: n 00 FLUTICAS DRUG Active Low Anxiety 2017-0 MD ONE 4-14 Anderso FUROATE- 00:00: n VILANTER 00 OL ZILEUTON DRUG Active Low Anxiety 2017-0 MD INGREDI 4-14 Anderso 00:00: n 00 BUDESONI DRUG Active High Sob 2017-0 MD DE-FORMO 4-14 Anderso TEROL 00:00: n 00 FLUTICAS DRUG Active High Sob 2017-0 MD ONE INGREDI 4-14 Anderso 00:00: n 00 LATEX DRUG Active High Rash 2017-0 MD INGREDI 4-14 Anderso 00:00: n 00 TIOTROPI DRUG Active High Sob 2017-0 MD UM INGREDI 4-14 Anderso BROMIDE 00:00: n 00 CETIRIZI DRUG Active Other 2017-0 MD NE INGREDI 4-14 Anderso 00:00: n 00 DEXLANSO DRUG Active Diarrhea 2017-0 MD PRAZOLE INGREDI 4-14 Anderso 00:00: n 00 ZILEUTON DRUG Active Low Anxiety 2017-0 MD INGREDI 4-14 Anderso 00:00: n 00 MACROLID Drug Active Nausea 2017-0 MD E Class 4-14 Anderso ANTIBIOT 00:00: n ICS 00 TRIAMTER DRUG Active Swelling 2017-0 MD ELENA-HYDR 4-14 Anderso [place] 00:00: n HIAZID 00 ADHESIVE Drug Active Low Rash 2017-0 MD Class 4-14 Anderso 00:00: n 00 FLUTICAS DRUG Active Low Anxiety 2017-0 MD ONE 4-14 Anderso FUROATE- 00:00: n VILANTER 00 OL ZILEUTON DRUG Active Low Anxiety 2017-0 MD INGREDI 4-14 Anderso 00:00: n 00 BUDESONI DRUG Active High Sob 2017-0 MD DE-FORMO 4-14 Anderso TEROL 00:00: n 00 FLUTICAS DRUG Active High Sob 2017-0 MD ONE INGREDI 4-14 Anderso 00:00: n 00 LATEX DRUG Active High Rash 2017-0 MD INGREDI 4-14 Anderso 00:00: n 00 TIOTROPI DRUG Active High Sob 2017-0 MD UM INGREDI 4-14 Anderso BROMIDE 00:00: n 00 CETIRIZI DRUG Active Other 2017-0 MD NE INGREDI 4-14 Anderso 00:00: n 00 DEXLANSO DRUG Active Diarrhea 2017-0 MD PRAZOLE INGREDI 4-14 Anderso 00:00: n 00 MACROLID Drug Active Nausea 2017-0 MD E Class 4-14 Anderso ANTIBIOT 00:00: n ICS 00 TRIAMTER DRUG Active Swelling 2017-0 MD ELENA-HYDR 4-14 Anderso [place] 00:00: n HIAZID 00 BUDESONI DRUG Active High Sob 2017-0 MD DE-FORMO 4-14 Anderso TEROL 00:00: n 00 ADHESIVE Drug Active Low Rash 2017-0 MD Class 4-14 Anderso 00:00: n 00 FLUTICAS DRUG Active Low Anxiety 2017-0 MD ONE 4-14 Anderso FUROATE- 00:00: n VILANTER 00 OL ZILEUTON DRUG Active Low Anxiety 2017-0 MD INGREDI 4-14 Anderso 00:00: n 00 BUDESONI DRUG Active High Sob 2017-0 MD DE-FORMO 4-14 Anderso TEROL 00:00: n 00 FLUTICAS DRUG Active High Sob 2017-0 MD ONE INGREDI 4-14 Anderso 00:00: n 00 LATEX DRUG Active High Rash 2017-0 MD INGREDI 4-14 Anderso 00:00: n 00 FLUTICAS DRUG Active High Sob 2017-0 MD ONE INGREDI 4-14 Anderso 00:00: n 00 TIOTROPI DRUG Active High Sob 2017-0 MD UM INGREDI 4-14 Anderso BROMIDE 00:00: n 00 CETIRIZI DRUG Active Other 2017-0 MD NE INGREDI 4-14 Anderso 00:00: n 00 DEXLANSO DRUG Active Diarrhea 2017-0 MD PRAZOLE INGREDI 4-14 Anderso 00:00: n 00 CETIRIZI DRUG Active Other 2017-0 MD NE INGREDI 4-14 Anderso 00:00: n 00 LATEX DRUG Active High Rash 2017-0 MD INGREDI 4-14 Anderso 00:00: n 00 MACROLID Drug Active Nausea 2017-0 MD E Class 4-14 Anderso ANTIBIOT 00:00: n ICS 00 TRIAMTER DRUG Active Swelling 2017-0 MD ELENA-HYDR 4-14 Anderso [place] 00:00: n HIAZID 00 ADHESIVE Drug Active Low Rash 2017-0 MD Class 4-14 Anderso 00:00: n 00 FLUTICAS DRUG Active Low Anxiety 2017-0 MD ONE 4-14 Anderso FUROATE- 00:00: n VILANTER 00 OL ZILEUTON DRUG Active Low Anxiety 2017-0 MD INGREDI 4-14 Anderso 00:00: n 00 BUDESONI DRUG Active High Sob 2017-0 MD DE-FORMO 4-14 Anderso TEROL 00:00: n 00 FLUTICAS DRUG Active High Sob 2017-0 MD ONE INGREDI 4-14 Anderso 00:00: n 00 LATEX DRUG Active High Rash 2017-0 MD INGREDI 4-14 Anderso 00:00: n 00 TIOTROPI DRUG Active High Sob 2017-0 MD UM INGREDI 4-14 Anderso BROMIDE 00:00: n 00 CETIRIZI DRUG Active Other 2017-0 MD NE INGREDI 4-14 Anderso 00:00: n 00 DEXLANSO DRUG Active Diarrhea 2017-0 MD PRAZOLE INGREDI 4-14 Anderso 00:00: n 00 MACROLID Drug Active Nausea 2017-0 MD E Class 4-14 Anderso ANTIBIOT 00:00: n ICS 00 TRIAMTER DRUG Active Swelling 2017-0 MD ELENA-HYDR 4-14 Anderso [place] 00:00: n HIAZID 00 ADHESIVE Drug Active Low Rash 2017-0 MD Class 4-14 Anderso 00:00: n 00 FLUTICAS DRUG Active Low Anxiety 2017-0 MD ONE 4-14 Anderso FUROATE- 00:00: n VILANTER 00 OL ZILEUTON DRUG Active Low Anxiety 2017-0 MD INGREDI 4-14 Anderso 00:00: n 00 BUDESONI DRUG Active High Sob 2017-0 MD DE-FORMO 4-14 Anderso TEROL 00:00: n 00 FLUTICAS DRUG Active High Sob 2017-0 MD ONE INGREDI 4-14 Anderso 00:00: n 00 LATEX DRUG Active High Rash 2017-0 MD INGREDI 4-14 Anderso 00:00: n 00 TIOTROPI DRUG Active High Sob 2017-0 MD UM INGREDI 4-14 Anderso BROMIDE 00:00: n 00 CETIRIZI DRUG Active Other 2017-0 MD NE INGREDI 4-14 Anderso 00:00: n 00 DEXLANSO DRUG Active Diarrhea 2017-0 MD PRAZOLE INGREDI 4-14 Anderso 00:00: n 00 TIOTROPI DRUG Active High Sob 2017-0 MD UM INGREDI 4-14 Anderso BROMIDE 00:00: n 00 MACROLID Drug Active Nausea 2017-0 MD E Class 4-14 Anderso ANTIBIOT 00:00: n ICS 00 TRIAMTER DRUG Active Swelling 2017-0 MD ELENA-HYDR 4-14 Anderso [place] 00:00: n HIAZID 00 ADHESIVE Drug Active Low Rash 2017-0 MD Class 4-14 Anderso 00:00: n 00 FLUTICAS DRUG Active Low Anxiety 2017-0 MD ONE 4-14 Anderso FUROATE- 00:00: n VILANTER 00 OL ZILEUTON DRUG Active Low Anxiety 2017-0 MD INGREDI 4-14 Anderso 00:00: n 00 BUDESONI DRUG Active High Sob 2017-0 MD DE-FORMO 4-14 Anderso TEROL 00:00: n 00 FLUTICAS DRUG Active High Sob 2017-0 MD ONE INGREDI 4-14 Anderso 00:00: n 00 LATEX DRUG Active High Rash 2017-0 MD INGREDI 4-14 Anderso 00:00: n 00 TIOTROPI DRUG Active High Sob 2017-0 MD UM INGREDI 4-14 Anderso BROMIDE 00:00: n 00 CETIRIZI DRUG Active Other 2017-0 MD NE INGREDI 4-14 Anderso 00:00: n 00 CETIRIZI DRUG Active Other 2017-0 MD NE INGREDI 4-14 Anderso 00:00: n 00 DEXLANSO DRUG Active Diarrhea 2017-0 MD PRAZOLE INGREDI 4-14 Anderso 00:00: n 00 MACROLID Drug Active Nausea 2017-0 MD E Class 4-14 Anderso ANTIBIOT 00:00: n ICS 00 TRIAMTER DRUG Active Swelling 2017-0 MD ELENA-HYDR 4-14 Anderso [place] 00:00: n HIAZID 00 ADHESIVE Drug Active Low Rash 2017-0 MD Class 4-14 Anderso 00:00: n 00 FLUTICAS DRUG Active Low Anxiety 2017-0 MD ONE 4-14 Anderso FUROATE- 00:00: n VILANTER 00 OL ZILEUTON DRUG Active Low Anxiety 2017-0 MD INGREDI 4-14 Anderso 00:00: n 00 BUDESONI DRUG Active High Sob 2017-0 MD DE-FORMO 4-14 Anderso TEROL 00:00: n 00 FLUTICAS DRUG Active High Sob 2017-0 MD ONE INGREDI 4-14 Anderso 00:00: n 00 LATEX DRUG Active High Rash 2017-0 MD INGREDI 4-14 Anderso 00:00: n 00 DEXLANSO DRUG Active Diarrhea 2017-0 MD PRAZOLE INGREDI 4-14 Anderso 00:00: n 00 TIOTROPI DRUG Active High Sob 2017-0 MD UM INGREDI 4-14 Anderso BROMIDE 00:00: n 00 CETIRIZI DRUG Active Other 2017-0 MD NE INGREDI 4-14 Anderso 00:00: n 00 DEXLANSO DRUG Active Diarrhea 2017-0 MD PRAZOLE INGREDI 4-14 Anderso 00:00: n 00 MACROLID Drug Active Nausea 2017-0 MD E Class 4-14 Anderso ANTIBIOT 00:00: n ICS 00 TRIAMTER DRUG Active Swelling 2017-0 MD ELENA-HYDR 4-14 Anderso [place] 00:00: n HIAZID 00 ADHESIVE Drug Active Low Rash 2017-0 MD Class 4-14 Anderso 00:00: n 00 FLUTICAS DRUG Active Low Anxiety 2017-0 MD ONE 4-14 Anderso FUROATE- 00:00: n VILANTER 00 OL ZILEUTON DRUG Active Low Anxiety 2017-0 MD INGREDI 4-14 Anderso 00:00: n 00 MACROLID Drug Active Nausea 2017-0 MD E Class 4-14 Anderso ANTIBIOT 00:00: n ICS 00 BUDESONI DRUG Active High Sob 2017-0 MD DE-FORMO 4-14 Anderso TEROL 00:00: n 00 FLUTICAS DRUG Active High Sob 2017-0 MD ONE INGREDI 4-14 Anderso 00:00: n 00 LATEX DRUG Active High Rash 2017-0 MD INGREDI 4-14 Anderso 00:00: n 00 TIOTROPI DRUG Active High Sob 2017-0 MD UM INGREDI 4-14 Anderso BROMIDE 00:00: n 00 CETIRIZI DRUG Active Other 2017-0 MD NE INGREDI 4-14 Anderso 00:00: n 00 DEXLANSO DRUG Active Diarrhea 2017-0 MD PRAZOLE INGREDI 4-14 Anderso 00:00: n 00 MACROLID Drug Active Nausea 2017-0 MD E Class 4-14 Anderso ANTIBIOT 00:00: n ICS 00 TRIAMTER DRUG Active Swelling 2017-0 MD ELENA-HYDR 4-14 Anderso [place] 00:00: n HIAZID 00 ADHESIVE Drug Active Low Rash 2017-0 MD Class 4-14 Anderso 00:00: n 00 FLUTICAS DRUG Active Low Anxiety 2017-0 MD ONE 4-14 Anderso FUROATE- 00:00: n VILANTER 00 OL ZILEUTON DRUG Active Low Anxiety 2017-0 MD INGREDI 4-14 Anderso 00:00: n 00 BUDESONI DRUG Active High Sob 2017-0 MD DE-FORMO 4-14 Anderso TEROL 00:00: n 00 FLUTICAS DRUG Active High Sob 2017-0 MD ONE INGREDI 4-14 Anderso 00:00: n 00 LATEX DRUG Active High Rash 2017-0 MD INGREDI 4-14 Anderso 00:00: n 00 TIOTROPI DRUG Active High Sob 2017-0 MD UM INGREDI 4-14 Anderso BROMIDE 00:00: n 00 CETIRIZI DRUG Active Other 2017-0 MD NE INGREDI 4-14 Anderso 00:00: n 00 DEXLANSO DRUG Active Diarrhea 2017-0 MD PRAZOLE INGREDI 4-14 Anderso 00:00: n 00 TRIAMTER DRUG Active Swelling 2017-0 MD ELENA-HYDR 4-14 Anderso [place] 00:00: n HIAZID 00 MACROLID Drug Active Nausea 2017-0 MD E Class 4-14 Anderso ANTIBIOT 00:00: n ICS 00 TRIAMTER DRUG Active Swelling 2017-0 MD ELENA-HYDR 4-14 Anderso [place] 00:00: n HIAZID 00 ADHESIVE Drug Active Low Rash 2017-0 MD Class 4-14 Anderso 00:00: n 00 FLUTICAS DRUG Active Low Anxiety 2017-0 MD ONE 4-14 Anderso FUROATE- 00:00: n VILANTER 00 OL ZILEUTON DRUG Active Low Anxiety 2017-0 MD INGREDI 4-14 Anderso 00:00: n 00 ADHESIVE Drug Active Low Rash 2017-0 MD Class 4-14 Anderso 00:00: n 00 BUDESONI DRUG Active High Sob 2017-0 MD DE-FORMO 4-14 Anderso TEROL 00:00: n 00 FLUTICAS DRUG Active High Sob 2017-0 MD ONE INGREDI 4-14 Anderso 00:00: n 00 LATEX DRUG Active High Rash 2017-0 MD INGREDI 4-14 Anderso 00:00: n 00 TIOTROPI DRUG Active High Sob 2017-0 MD UM INGREDI 4-14 Anderso BROMIDE 00:00: n 00 FLUTICAS DRUG Active Low Anxiety 2017-0 MD ONE 4-14 Anderso FUROATE- 00:00: n VILANTER 00 OL CETIRIZI DRUG Active Other 2017-0 MD NE INGREDI 4-14 Anderso 00:00: n 00 DEXLANSO DRUG Active Diarrhea 2017-0 MD PRAZOLE INGREDI 4-14 Anderso 00:00: n 00 MACROLID Drug Active Nausea 2017-0 MD E Class 4-14 Anderso ANTIBIOT 00:00: n ICS 00 TRIAMTER DRUG Active Swelling 2017-0 MD ELENA-HYDR 4-14 Anderso [place] 00:00: n HIAZID 00 ADHESIVE Drug Active Low Rash 2017-0 MD Class 4-14 Anderso 00:00: n 00 FLUTICAS DRUG Active Low Anxiety 2017-0 MD ONE 4-14 Anderso FUROATE- 00:00: n VILANTER 00 OL ZILEUTON DRUG Active Low Anxiety 2017-0 MD INGREDI 4-14 Anderso 00:00: n 00 BUDESONI DRUG Active High Sob 2017-0 MD DE-FORMO 4-14 Anderso TEROL 00:00: n 00 FLUTICAS DRUG Active High Sob 2017-0 MD ONE INGREDI 4-14 Anderso 00:00: n 00 LATEX DRUG Active High Rash 2017-0 MD INGREDI 4-14 Anderso 00:00: n 00 ZILEUTON DRUG Active Low Anxiety 2017-0 MD INGREDI 4-14 Anderso 00:00: n 00 TIOTROPI DRUG Active High Sob 2017-0 MD UM INGREDI 4-14 Anderso BROMIDE 00:00: n 00 CETIRIZI DRUG Active Other 2017-0 MD NE INGREDI 4-14 Anderso 00:00: n 00 DEXLANSO DRUG Active Diarrhea 2017-0 MD PRAZOLE INGREDI 4-14 Anderso 00:00: n 00 DEXLANSO DRUG Active Diarrhea 2017-0 MD PRAZOLE INGREDI 4-14 Anderso 00:00: n 00 MACROLID Drug Active Nausea 2017-0 MD E Class 4-14 Anderso ANTIBIOT 00:00: n ICS 00 TRIAMTER DRUG Active Swelling 2017-0 MD ELENA-HYDR 4-14 Anderso [place] 00:00: n HIAZID 00 ADHESIVE Drug Active Low Rash 2017-0 MD Class 4-14 Anderso 00:00: n 00 FLUTICAS DRUG Active Low Anxiety 2017-0 MD ONE 4-14 Anderso FUROATE- 00:00: n VILANTER 00 OL ZILEUTON DRUG Active Low Anxiety 2017-0 MD INGREDI 4-14 Anderso 00:00: n 00 BUDESONI DRUG Active High Sob 2017-0 MD DE-FORMO 4-14 Anderso TEROL 00:00: n 00 FLUTICAS DRUG Active High Sob 2017-0 MD ONE INGREDI 4-14 Anderso 00:00: n 00 LATEX DRUG Active High Rash 2017-0 MD INGREDI 4-14 Anderso 00:00: n 00 TIOTROPI DRUG Active High Sob 2017-0 MD UM INGREDI 4-14 Anderso BROMIDE 00:00: n 00 BUDESONI DRUG Active High Sob 2017-0 MD DE-FORMO 4-14 Anderso TEROL 00:00: n 00 CETIRIZI DRUG Active Other 2017-0 MD NE INGREDI 4-14 Anderso 00:00: n 00 DEXLANSO DRUG Active Diarrhea 2017-0 MD PRAZOLE INGREDI 4-14 Anderso 00:00: n 00 MACROLID Drug Active Nausea 2017-0 MD E Class 4-14 Anderso ANTIBIOT 00:00: n ICS 00 TRIAMTER DRUG Active Swelling 2017-0 MD ELENA-HYDR 4-14 Anderso [place] 00:00: n HIAZID 00 FLUTICAS DRUG Active High Sob 2017-0 MD ONE INGREDI 4-14 Anderso 00:00: n 00 ADHESIVE Drug Active Low Rash 2017-0 MD Class 4-14 Anderso 00:00: n 00 FLUTICAS DRUG Active Low Anxiety 2017-0 MD ONE 4-14 Anderso FUROATE- 00:00: n VILANTER 00 OL ZILEUTON DRUG Active Low Anxiety 2017-0 MD INGREDI 4-14 Anderso 00:00: n 00 BUDESONI DRUG Active High Sob 2017-0 MD DE-FORMO 4-14 Anderso TEROL 00:00: n 00 FLUTICAS DRUG Active High Sob 2017-0 MD ONE INGREDI 4-14 Anderso 00:00: n 00 LATEX DRUG Active High Rash 2017-0 MD INGREDI 4-14 Anderso 00:00: n 00 LATEX DRUG Active High Rash 2017-0 MD INGREDI 4-14 Anderso 00:00: n 00 TIOTROPI DRUG Active High Sob 2017-0 MD UM INGREDI 4-14 Anderso BROMIDE 00:00: n 00 CETIRIZI DRUG Active Other 2017-0 MD NE INGREDI 4-14 Anderso 00:00: n 00 DEXLANSO DRUG Active Diarrhea 2017-0 MD PRAZOLE INGREDI 4-14 Anderso 00:00: n 00 MACROLID Drug Active Nausea 2017-0 MD E Class 4-14 Anderso ANTIBIOT 00:00: n ICS 00 TRIAMTER DRUG Active Swelling 2017-0 MD ELENA-HYDR 4-14 Anderso [place] 00:00: n HIAZID 00 ADHESIVE Drug Active Low Rash 2017-0 MD Class 4-14 Anderso 00:00: n 00 FLUTICAS DRUG Active Low Anxiety 2017-0 MD ONE 4-14 Anderso FUROATE- 00:00: n VILANTER 00 OL ZILEUTON DRUG Active Low Anxiety 2017-0 MD INGREDI 4-14 Anderso 00:00: n 00 BUDESONI DRUG Active High Sob 2017-0 MD DE-FORMO 4-14 Anderso TEROL 00:00: n 00 FLUTICAS DRUG Active High Sob 2017-0 MD ONE INGREDI 4-14 Anderso 00:00: n 00 LATEX DRUG Active High Rash 2017-0 MD INGREDI 4-14 Anderso 00:00: n 00 TIOTROPI DRUG Active High Sob 2017-0 MD UM INGREDI 4-14 Anderso BROMIDE 00:00: n 00 CETIRIZI DRUG Active Other 2017-0 MD NE INGREDI 4-14 Anderso 00:00: n 00 DEXLANSO DRUG Active Diarrhea 2017-0 MD PRAZOLE INGREDI 4-14 Anderso 00:00: n 00 MACROLID Drug Active Nausea 2017-0 MD E Class 4-14 Anderso ANTIBIOT 00:00: n ICS 00 TRIAMTER DRUG Active Swelling 2017-0 MD ELENA-HYDR 4-14 Anderso [place] 00:00: n HIAZID 00 ADHESIVE Drug Active Low Rash 2017-0 MD Class 4-14 Anderso 00:00: n 00 FLUTICAS DRUG Active Low Anxiety 2017-0 MD ONE 4-14 Anderso FUROATE- 00:00: n VILANTER 00 OL ZILEUTON DRUG Active Low Anxiety 2017-0 MD INGREDI 4-14 Anderso 00:00: n 00 BUDESONI DRUG Active High Sob 2017-0 MD DE-FORMO 4-14 Anderso TEROL 00:00: n 00 FLUTICAS DRUG Active High Sob 2017-0 MD ONE INGREDI 4-14 Anderso 00:00: n 00 LATEX DRUG Active High Rash 2017-0 MD INGREDI 4-14 Anderso 00:00: n 00 TIOTROPI DRUG Active High Sob 2017-0 MD UM INGREDI 4-14 Anderso BROMIDE 00:00: n 00 TIOTROPI DRUG Active High Sob 2017-0 MD UM INGREDI 4-14 Anderso BROMIDE 00:00: n 00 CETIRIZI DRUG Active Other 2017-0 MD NE INGREDI 4-14 Anderso 00:00: n 00 DEXLANSO DRUG Active Diarrhea 2017-0 MD PRAZOLE INGREDI 4-14 Anderso 00:00: n 00 MACROLID Drug Active Nausea 2017-0 MD E Class 4-14 Anderso ANTIBIOT 00:00: n ICS 00 TRIAMTER DRUG Active Swelling 2017-0 MD ELENA-HYDR 4-14 Anderso [place] 00:00: n HIAZID 00 ADHESIVE Drug Active Low Rash 2017-0 MD Class 4-14 Anderso 00:00: n 00 FLUTICAS DRUG Active Low Anxiety 2017-0 MD ONE 4-14 Anderso FUROATE- 00:00: n VILANTER 00 OL ZILEUTON DRUG Active Low Anxiety 2017-0 MD INGREDI 4-14 Anderso 00:00: n 00 CETIRIZI DRUG Active Other 2017-0 MD NE INGREDI 4-14 Anderso 00:00: n 00 BUDESONI DRUG Active High Sob 2017-0 MD DE-FORMO 4-14 Anderso TEROL 00:00: n 00 FLUTICAS DRUG Active High Sob 2017-0 MD ONE INGREDI 4-14 Anderso 00:00: n 00 LATEX DRUG Active High Rash 2017-0 MD INGREDI 4-14 Anderso 00:00: n 00 TIOTROPI DRUG Active High Sob 2017-0 MD UM INGREDI 4-14 Anderso BROMIDE 00:00: n 00 CETIRIZI DRUG Active Other 2017-0 MD NE INGREDI 4-14 Anderso 00:00: n 00 DEXLANSO DRUG Active Diarrhea 2017-0 MD PRAZOLE INGREDI 4-14 Anderso 00:00: n 00 MACROLID Drug Active Nausea 2017-0 MD E Class 4-14 Anderso ANTIBIOT 00:00: n ICS 00 TRIAMTER DRUG Active Swelling 2017-0 MD ELENA-HYDR 4-14 [place]o [place] 00:00: n HIAZID 00 DEXLANSO DRUG Active Diarrhea 2017-0 MD PRAZOLE INGREDI 4-14 Anderso 00:00: n 00 ADHESIVE Drug Active Low Rash 2017-0 MD Class 4-14 Anderso 00:00: n 00 FLUTICAS DRUG Active Low Anxiety 2017-0 MD ONE 4-14 Anderso FUROATE- 00:00: n VILANTER 00 OL ZILEUTON DRUG Active Low Anxiety 2017-0 MD INGREDI 4-14 Anderso 00:00: n 00 BUDESONI DRUG Active High Sob 2017-0 MD DE-FORMO 4-14 Anderso TEROL 00:00: n 00 FLUTICAS DRUG Active High Sob 2017-0 MD ONE INGREDI 4-14 Anderso 00:00: n 00 LATEX DRUG Active High Rash 2017-0 MD INGREDI 4-14 Anderso 00:00: n 00 TIOTROPI DRUG Active High Sob 2017-0 MD UM INGREDI 4-14 Anderso BROMIDE 00:00: n 00 CETIRIZI DRUG Active Other 2017-0 MD NE INGREDI 4-14 Anderso 00:00: n 00 DEXLANSO DRUG Active Diarrhea 2017-0 MD PRAZOLE INGREDI 4-14 Anderso 00:00: n 00 MACROLID Drug Active Nausea 2017-0 MD E Class 4-14 Anderso ANTIBIOT 00:00: n ICS 00 MACROLID Drug Active Nausea 2017-0 MD E Class 4-14 Anderso ANTIBIOT 00:00: n ICS 00 TRIAMTER DRUG Active Swelling 2017-0 MD ELENA-HYDR 4-14 Anderso [place] 00:00: n HIAZID 00 ADHESIVE Drug Active Low Rash 2017-0 MD Class 4-14 Anderso 00:00: n 00 FLUTICAS DRUG Active Low Anxiety 2017-0 MD ONE 4-14 Anderso FUROATE- 00:00: n VILANTER 00 OL ZILEUTON DRUG Active Low Anxiety 2017-0 MD INGREDI 4-14 Anderso 00:00: n 00 BUDESONI DRUG Active High Sob 2017-0 MD DE-FORMO 4-14 Anderso TEROL 00:00: n 00 FLUTICAS DRUG Active High Sob 2017-0 MD ONE INGREDI 4-14 Anderso 00:00: n 00 LATEX DRUG Active High Rash 2017-0 MD INGREDI 4-14 Anderso 00:00: n 00 TIOTROPI DRUG Active High Sob 2017-0 MD UM INGREDI 4-14 Anderso BROMIDE 00:00: n 00 CETIRIZI DRUG Active Other 2017-0 MD NE INGREDI 4-14 Anderso 00:00: n 00 DEXLANSO DRUG Active Diarrhea 2017-0 MD PRAZOLE INGREDI 4-14 Anderso 00:00: n 00 MACROLID Drug Active Nausea 2017-0 MD E Class 4-14 Anderso ANTIBIOT 00:00: n ICS 00 TRIAMTER DRUG Active Swelling 2017-0 MD ELENA-HYDR 4-14 Anderso [place] 00:00: n HIAZID 00 ADHESIVE Drug Active Low Rash 2017-0 MD Class 4-14 Anderso 00:00: n 00 FLUTICAS DRUG Active Low Anxiety 2017-0 MD ONE 4-14 Anderso FUROATE- 00:00: n VILANTER 00 OL ZILEUTON DRUG Active Low Anxiety 2017-0 MD INGREDI 4-14 Anderso 00:00: n 00 BUDESONI DRUG Active High Sob 2017-0 MD DE-FORMO 4-14 Anderso TEROL 00:00: n 00 FLUTICAS DRUG Active High Sob 2017-0 MD ONE INGREDI 4-14 Anderso 00:00: n 00 LATEX DRUG Active High Rash 2017-0 MD INGREDI 4-14 Anderso 00:00: n 00 TRIAMTER DRUG Active Swelling 2017-0 MD ELENA-HYDR 4-14 Anderso [place] 00:00: n HIAZID 00 TIOTROPI DRUG Active High Sob 2017-0 MD UM INGREDI 4-14 Anderso BROMIDE 00:00: n 00 CETIRIZI DRUG Active Other 2017-0 MD NE INGREDI 4-14 Anderso 00:00: n 00 DEXLANSO DRUG Active Diarrhea 2017-0 MD PRAZOLE INGREDI 4-14 Anderso 00:00: n 00 ADHESIVE Drug Active Low Rash 2017-0 MD Class 4-14 Anderso 00:00: n 00 MACROLID Drug Active Nausea 2017-0 MD E Class 4-14 Anderso ANTIBIOT 00:00: n ICS 00 TRIAMTER DRUG Active Swelling 2017-0 MD ELENA-HYDR 4-14 Anderso [place] 00:00: n HIAZID 00 ADHESIVE Drug Active Low Rash 2017-0 MD Class 4-14 Anderso 00:00: n 00 FLUTICAS DRUG Active Low Anxiety 2017-0 MD ONE 4-14 Anderso FUROATE- 00:00: n VILANTER 00 OL ZILEUTON DRUG Active Low Anxiety 2017-0 MD INGREDI 4-14 Anderso 00:00: n 00 FLUTICAS DRUG Active Low Anxiety 2017-0 MD ONE 4-14 Anderso FUROATE- 00:00: n VILANTER 00 OL BUDESONI DRUG Active High Sob 2017-0 MD DE-FORMO 4-14 Anderso TEROL 00:00: n 00 FLUTICAS DRUG Active High Sob 2017-0 MD ONE INGREDI 4-14 Anderso 00:00: n 00 LATEX DRUG Active High Rash 2017-0 MD INGREDI 4-14 Anderso 00:00: n 00 TIOTROPI DRUG Active High Sob 2017-0 MD UM INGREDI 4-14 Anderso BROMIDE 00:00: n 00 CETIRIZI DRUG Active Other 2017-0 MD NE INGREDI 4-14 Anderso 00:00: n 00 DEXLANSO DRUG Active Diarrhea 2017-0 MD PRAZOLE INGREDI 4-14 Anderso 00:00: n 00 MACROLID Drug Active Nausea 2017-0 MD E Class 4-14 Anderso ANTIBIOT 00:00: n ICS 00 TRIAMTER DRUG Active Swelling 2017-0 MD ELENA-HYDR 4-14 Anderso [place] 00:00: n HIAZID 00 ZILEUTON DRUG Active Low Anxiety 2017-0 MD INGREDI 4-14 Anderso 00:00: n 00 ADHESIVE Drug Active Low Rash 2017-0 MD Class 4-14 Anderso 00:00: n 00 FLUTICAS DRUG Active Low Anxiety 2017-0 MD ONE 4-14 Anderso FUROATE- 00:00: n VILANTER 00 OL ZILEUTON DRUG Active Low Anxiety 2017-0 MD INGREDI 4-14 Anderso 00:00: n 00 BUDESONI DRUG Active High Sob 2017-0 MD DE-FORMO 4-14 Anderso TEROL 00:00: n 00 FLUTICAS DRUG Active High Sob 2017-0 MD ONE INGREDI 4-14 Anderso 00:00: n 00 LATEX DRUG Active High Rash 2017-0 MD INGREDI 4-14 Anderso 00:00: n 00 TIOTROPI DRUG Active High Sob 2017-0 MD UM INGREDI 4-14 Anderso BROMIDE 00:00: n 00 CETIRIZI DRUG Active Other 2017-0 MD NE INGREDI 4-14 Anderso 00:00: n 00 DEXLANSO DRUG Active Diarrhea 2017-0 MD PRAZOLE INGREDI 4-14 Anderso 00:00: n 00 MACROLID Drug Active Nausea 2017-0 MD E Class 4-14 Anderso ANTIBIOT 00:00: n ICS 00 TRIAMTER DRUG Active Swelling 2017-0 MD ELENA-HYDR 4-14 Anderso [place] 00:00: n HIAZID 00 ADHESIVE Drug Active Low Rash 2017-0 MD Class 4-14 Anderso 00:00: n 00 FLUTICAS DRUG Active Low Anxiety 2017-0 MD ONE 4-14 Anderso FUROATE- 00:00: n VILANTER 00 OL ZILEUTON DRUG Active Low Anxiety 2017-0 MD INGREDI 4-14 Anderso 00:00: n 00 BUDESONI DRUG Active High Sob 2017-0 MD DE-FORMO 4-14 Anderso TEROL 00:00: n 00 BUDESONI DRUG Active High Sob 2017-0 MD DE-FORMO 4-14 Anderso TEROL 00:00: n 00 FLUTICAS DRUG Active High Sob 2017-0 MD ONE INGREDI 4-14 Anderso 00:00: n 00 LATEX DRUG Active High Rash 2017-0 MD INGREDI 4-14 Anderso 00:00: n 00 FLUTICAS DRUG Active High Sob 2017-0 MD ONE INGREDI 4-14 Anderso 00:00: n 00 TIOTROPI DRUG Active High Sob 2017-0 MD UM INGREDI 4-14 Anderso BROMIDE 00:00: n 00 CETIRIZI DRUG Active Other 2017-0 MD NE INGREDI 4-14 Anderso 00:00: n 00 DEXLANSO DRUG Active Diarrhea 2017-0 MD PRAZOLE INGREDI 4-14 Anderso 00:00: n 00 MACROLID Drug Active Nausea 2017-0 MD E Class 4-14 Anderso ANTIBIOT 00:00: n ICS 00 LATEX DRUG Active High Rash 2017-0 MD INGREDI 4-14 Anderso 00:00: n 00 TRIAMTER DRUG Active Swelling 2017-0 MD ELENA-HYDR 4-14 Anderso [place] 00:00: n HIAZID 00 ADHESIVE Drug Active Low Rash 2017-0 MD Class 4-14 Anderso 00:00: n 00 FLUTICAS DRUG Active Low Anxiety 2017-0 MD ONE 4-14 Anderso FUROATE- 00:00: n VILANTER 00 OL ZILEUTON DRUG Active Low Anxiety 2017-0 MD INGREDI 4-14 Anderso 00:00: n 00 BUDESONI DRUG Active High Sob 2017-0 MD DE-FORMO 4-14 Anderso TEROL 00:00: n 00 FLUTICAS DRUG Active High Sob 2017-0 MD ONE INGREDI 4-14 Anderso 00:00: n 00 LATEX DRUG Active High Rash 2017-0 MD INGREDI 4-14 Anderso 00:00: n 00 TIOTROPI DRUG Active High Sob 2017-0 MD UM INGREDI 4-14 Anderso BROMIDE 00:00: n 00 CETIRIZI DRUG Active Other 2017-0 MD NE INGREDI 4-14 Anderso 00:00: n 00 DEXLANSO DRUG Active Diarrhea 2017-0 MD PRAZOLE INGREDI 4-14 Anderso 00:00: n 00 MACROLID Drug Active Nausea 2017-0 MD E Class 4-14 Anderso ANTIBIOT 00:00: n ICS 00 TRIAMTER DRUG Active Swelling 2017-0 MD ELENA-HYDR 4-14 Anderso [place] 00:00: n HIAZID 00 ADHESIVE Drug Active Low Rash 2017-0 MD Class 4-14 Anderso 00:00: n 00 FLUTICAS DRUG Active Low Anxiety 2017-0 MD ONE 4-14 Anderso FUROATE- 00:00: n VILANTER 00 OL ZILEUTON DRUG Active Low Anxiety 2017-0 MD INGREDI 4-14 Anderso 00:00: n 00 BUDESONI DRUG Active High Sob 2017-0 MD DE-FORMO 4-14 Anderso TEROL 00:00: n 00 FLUTICAS DRUG Active High Sob 2017-0 MD ONE INGREDI 4-14 Anderso 00:00: n 00 LATEX DRUG Active High Rash 2017-0 MD INGREDI 4-14 Anderso 00:00: n 00 TIOTROPI DRUG Active High Sob 2017-0 MD UM INGREDI 4-14 Anderso BROMIDE 00:00: n 00 CETIRIZI DRUG Active Other 2017-0 MD NE INGREDI 4-14 Anderso 00:00: n 00 DEXLANSO DRUG Active Diarrhea 2017-0 MD PRAZOLE INGREDI 4-14 Anderso 00:00: n 00 MACROLID Drug Active Nausea 2017-0 MD E Class 4-14 Anderso ANTIBIOT 00:00: n ICS 00 TIOTROPI DRUG Active High Sob 2017-0 MD UM INGREDI 4-14 Anderso BROMIDE 00:00: n 00 TRIAMTER DRUG Active Swelling 2017-0 MD ELENA-HYDR 4-14 Anderso [place] 00:00: n HIAZID 00 ADHESIVE Drug Active Low Rash 2017-0 MD Class 4-14 Anderso 00:00: n 00 FLUTICAS DRUG Active Low Anxiety 2017-0 MD ONE 4-14 Anderso FUROATE- 00:00: n VILANTER 00 OL ZILEUTON DRUG Active Low Anxiety 2017-0 MD INGREDI 4-14 Anderso 00:00: n 00 BUDESONI DRUG Active High Sob 2017-0 MD DE-FORMO 4-14 Anderso TEROL 00:00: n 00 FLUTICAS DRUG Active High Sob 2017-0 MD ONE INGREDI 4-14 Anderso 00:00: n 00 LATEX DRUG Active High Rash 2017-0 MD INGREDI 4-14 Anderso 00:00: n 00 TIOTROPI DRUG Active High Sob 2017-0 MD UM INGREDI 4-14 Anderso BROMIDE 00:00: n 00 CETIRIZI DRUG Active Other 2017-0 MD NE INGREDI 4-14 Anderso 00:00: n 00 CETIRIZI DRUG Active Other 2017-0 MD NE INGREDI 4-14 Anderso 00:00: n 00 DEXLANSO DRUG Active Diarrhea 2017-0 MD PRAZOLE INGREDI 4-14 Anderso 00:00: n 00 MACROLID Drug Active Nausea 2017-0 MD E Class 4-14 Anderso ANTIBIOT 00:00: n ICS 00 TRIAMTER DRUG Active Swelling 2017-0 MD ELENA-HYDR 4-14 Anderso [place] 00:00: n HIAZID 00 ADHESIVE Drug Active Low Rash 2017-0 MD Class 4-14 Anderso 00:00: n 00 FLUTICAS DRUG Active Low Anxiety 2017-0 MD ONE 4-14 Anderso FUROATE- 00:00: n VILANTER 00 OL ZILEUTON DRUG Active Low Anxiety 2017-0 MD INGREDI 4-14 Anderso 00:00: n 00 BUDESONI DRUG Active High Sob 2017-0 MD DE-FORMO 4-14 Anderso TEROL 00:00: n 00 FLUTICAS DRUG Active High Sob 2017-0 MD ONE INGREDI 4-14 Anderso 00:00: n 00 LATEX DRUG Active High Rash 2017-0 MD INGREDI 4-14 Anderso 00:00: n 00 DEXLANSO DRUG Active Diarrhea 2017-0 MD PRAZOLE INGREDI 4-14 Anderso 00:00: n 00 TIOTROPI DRUG Active High Sob 2017-0 MD UM INGREDI 4-14 Anderso BROMIDE 00:00: n 00 CETIRIZI DRUG Active Other 2017-0 MD NE INGREDI 4-14 Anderso 00:00: n 00 DEXLANSO DRUG Active Diarrhea 2017-0 MD PRAZOLE INGREDI 4-14 Anderso 00:00: n 00 MACROLID Drug Active Nausea 2017-0 MD E Class 4-14 Anderso ANTIBIOT 00:00: n ICS 00 TRIAMTER DRUG Active Swelling 2017-0 MD ELENA-HYDR 4-14 Anderso [place] 00:00: n HIAZID 00 ADHESIVE Drug Active Low Rash 2017-0 MD Class 4-14 Anderso 00:00: n 00 FLUTICAS DRUG Active Low Anxiety 2017-0 MD ONE 4-14 Anderso FUROATE- 00:00: n VILANTER 00 OL ZILEUTON DRUG Active Low Anxiety 2017-0 MD INGREDI 4-14 Anderso 00:00: n 00 MACROLID Drug Active Nausea 2017-0 MD E Class 4-14 Anderso ANTIBIOT 00:00: n ICS 00 BUDESONI DRUG Active High Sob 2017-0 MD DE-FORMO 4-14 Anderso TEROL 00:00: n 00 FLUTICAS DRUG Active High Sob 2017-0 MD ONE INGREDI 4-14 Anderso 00:00: n 00 LATEX DRUG Active High Rash 2017-0 MD INGREDI 4-14 Anderso 00:00: n 00 MACROLID Drug Active Nausea 2017-0 MD E Class 4-14 Anderso ANTIBIOT 00:00: n ICS 00 TIOTROPI DRUG Active High Sob 2017-0 MD UM INGREDI 4-14 Anderso BROMIDE 00:00: n 00 CETIRIZI DRUG Active Other 2017-0 MD NE INGREDI 4-14 Anderso 00:00: n 00 DEXLANSO DRUG Active Diarrhea 2017-0 MD PRAZOLE INGREDI 4-14 Anderso 00:00: n 00 MACROLID Drug Active Nausea 2017-0 MD E Class 4-14 Anderso ANTIBIOT 00:00: n ICS 00 TRIAMTER DRUG Active Swelling 2017-0 MD ELENA-HYDR 4-14 Anderso [place] 00:00: n HIAZID 00 ADHESIVE Drug Active Low Rash 2017-0 MD Class 4-14 Anderso 00:00: n 00 FLUTICAS DRUG Active Low Anxiety 2017-0 MD ONE 4-14 Anderso FUROATE- 00:00: n VILANTER 00 OL ZILEUTON DRUG Active Low Anxiety 2017-0 MD INGREDI 4-14 Anderso 00:00: n 00 BUDESONI DRUG Active High Sob 2017-0 MD DE-FORMO 4-14 Anderso TEROL 00:00: n 00 FLUTICAS DRUG Active High Sob 2017-0 MD ONE INGREDI 4-14 Anderso 00:00: n 00 LATEX DRUG Active High Rash 2017-0 MD INGREDI 4-14 Anderso 00:00: n 00 TIOTROPI DRUG Active High Sob 2017-0 MD UM INGREDI 4-14 Anderso BROM[place] 00:00: n 00 CETIRIZI DRUG Active Other 2017-0 MD NE INGREDI 4-14 Anderso 00:00: n 00 TRIAMTER DRUG Active Swelling 2017-0 MD ELENA-HYDR 4-14 Anderso [place] 00:00: n HIAZID 00 DEXLANSO DRUG Active Diarrhea 2017-0 MD PRAZOLE INGREDI 4-14 Anderso 00:00: n 00 MACROLID Drug Active Nausea 2017-0 MD E Class 4-14 Anderso ANTIBIOT 00:00: n ICS 00 TRIAMTER DRUG Active Swelling 2017-0 MD ELENA-HYDR 4-14 Anderso [place] 00:00: n HIAZID 00 ADHESIVE Drug Active Low Rash 2017-0 MD Class 4-14 Anderso 00:00: n 00 FLUTICAS DRUG Active Low Anxiety 2017-0 MD ONE 4-14 Anderso FUROATE- 00:00: n VILANTER 00 OL ADHESIVE Drug Active Low Rash 2017-0 MD Class 4-14 Anderso 00:00: n 00 ZILEUTON DRUG Active Low Anxiety 2017-0 MD INGREDI 4-14 Anderso 00:00: n 00 BUDESONI DRUG Active High Sob 2017-0 MD DE-FORMO 4-14 Anderso TEROL 00:00: n 00 FLUTICAS DRUG Active High Sob 2017-0 MD ONE INGREDI 4-14 Anderso 00:00: n 00 LATEX DRUG Active High Rash 2017-0 MD INGREDI 4-14 Anderso 00:00: n 00 FLUTICAS DRUG Active Low Anxiety 2017-0 MD ONE 4-14 Anderso FUROATE- 00:00: n VILANTER 00 OL TIOTROPI DRUG Active High Sob 2017-0 MD UM INGREDI 4-14 Anderso BROMIDE 00:00: n 00 CETIRIZI DRUG Active Other 2017-0 MD NE INGREDI 4-14 Anderso 00:00: n 00 DEXLANSO DRUG Active Diarrhea 2017-0 MD PRAZOLE INGREDI 4-14 Anderso 00:00: n 00 MACROLID Drug Active Nausea 2017-0 MD E Class 4-14 Anderso ANTIBIOT 00:00: n ICS 00 TRIAMTER DRUG Active Swelling 2017-0 MD ELENA-HYDR 4-14 Anderso [place] 00:00: n HIAZID 00 ADHESIVE Drug Active Low Rash 2017-0 MD Class 4-14 Anderso 00:00: n 00 FLUTICAS DRUG Active Low Anxiety 2017-0 MD ONE 4-14 Anderso FUROATE- 00:00: n VILANTER 00 OL ZILEUTON DRUG Active Low Anxiety 2017-0 MD INGREDI 4-14 Anderso 00:00: n 00 ZILEUTON DRUG Active Low Anxiety 2017-0 MD INGREDI 4-14 Anderso 00:00: n 00 BUDESONI DRUG Active High Sob 2017-0 MD DE-FORMO 4-14 Anderso TEROL 00:00: n 00 FLUTICAS DRUG Active High Sob 2017-0 MD ONE INGREDI 4-14 Anderso 00:00: n 00 LATEX DRUG Active High Rash 2017-0 MD INGREDI 4-14 Anderso 00:00: n 00 TIOTROPI DRUG Active High Sob 2017-0 MD UM INGREDI 4-14 Anderso BROMIDE 00:00: n 00 CETIRIZI DRUG Active Other 2017-0 MD NE INGREDI 4-14 Anderso 00:00: n 00 DEXLANSO DRUG Active Diarrhea 2017-0 MD PRAZOLE INGREDI 4-14 Anderso 00:00: n 00 MACROLID Drug Active Nausea 2017-0 MD E Class 4-14 Anderso ANTIBIOT 00:00: n ICS 00 TRIAMTER DRUG Active Swelling 2017-0 MD ELENA-HYDR 4-14 Anderso [place] 00:00: n HIAZID 00 ADHESIVE Drug Active Low Rash 2017-0 MD Class 4-14 Anderso 00:00: n 00 FLUTICAS DRUG Active Low Anxiety 2017-0 MD ONE 4-14 Anderso FUROATE- 00:00: n VILANTER 00 OL ZILEUTON DRUG Active Low Anxiety 2017-0 MD INGREDI 4-14 Anderso 00:00: n 00 BUDESONI DRUG Active High Sob 2017-0 MD DE-FORMO 4-14 Anderso TEROL 00:00: n 00 FLUTICAS DRUG Active High Sob 2017-0 MD ONE INGREDI 4-14 Anderso 00:00: n 00 LATEX DRUG Active High Rash 2017-0 MD INGREDI 4-14 Anderso 00:00: n 00 BUDESONI DRUG Active High Sob 2017-0 MD DE-FORMO 4-14 Anderso TEROL 00:00: n 00 TIOTROPI DRUG Active High Sob 2017-0 MD UM INGREDI 4-14 Anderso BROM[place] 00:00: n 00 CETIRIZI DRUG Active Other 2017-0 MD NE INGREDI 4-14 Anderso 00:00: n 00 DEXLANSO DRUG Active Diarrhea 2017-0 MD PRAZOLE INGREDI 4-14 Anderso 00:00: n 00 FLUTICAS DRUG Active High Sob 2017-0 MD ONE INGREDI 4-14 Anderso 00:00: n 00 MACROLID Drug Active Nausea 2017-0 MD E Class 4-14 Anderso ANTIBIOT 00:00: n ICS 00 TRIAMTER DRUG Active Swelling 2017-0 MD ELENA-HYDR 4-14 Anderso [place] 00:00: n HIAZID 00 ADHESIVE Drug Active Low Rash 2017-0 MD Class 4-14 Anderso 00:00: n 00 FLUTICAS DRUG Active Low Anxiety 2017-0 MD ONE 4-14 Anderso FUROATE- 00:00: n VILANTER 00 OL ZILEUTON DRUG Active Low Anxiety 2017-0 MD INGREDI 4-14 Anderso 00:00: n 00 LATEX DRUG Active High Rash 2017-0 MD INGREDI 4-14 Anderso 00:00: n 00 BUDESONI DRUG Active High Sob 2017-0 MD DE-FORMO 4-14 Anderso TEROL 00:00: n 00 FLUTICAS DRUG Active High Sob 2017-0 MD ONE INGREDI 4-14 Anderso 00:00: n 00 LATEX DRUG Active High Rash 2017-0 MD INGREDI 4-14 Anderso 00:00: n 00 TIOTROPI DRUG Active High Sob 2017-0 MD UM INGREDI 4-14 Anderso BROMIDE 00:00: n 00 CETIRIZI DRUG Active Other 2017-0 MD NE INGREDI 4-14 Anderso 00:00: n 00 DEXLANSO DRUG Active Diarrhea 2017-0 MD PRAZOLE INGREDI 4-14 Anderso 00:00: n 00 MACROLID Drug Active Nausea 2017-0 MD E Class 4-14 Anderso ANTIBIOT 00:00: n ICS 00 TRIAMTER DRUG Active Swelling 2017-0 MD ELENA-HYDR 4-14 Anderso [place] 00:00: n HIAZID 00 ADHESIVE Drug Active Low Rash 2017-0 MD Class 4-14 Anderso 00:00: n 00 FLUTICAS DRUG Active Low Anxiety 2017-0 MD ONE 4-14 Anderso FUROATE- 00:00: n VILANTER 00 OL ZILEUTON DRUG Active Low Anxiety 2017-0 MD INGREDI 4-14 Anderso 00:00: n 00 BUDESONI DRUG Active High Sob 2017-0 MD DE-FORMO 4-14 Anderso TEROL 00:00: n 00 FLUTICAS DRUG Active High Sob 2017-0 MD ONE INGREDI 4-14 Anderso 00:00: n 00 LATEX DRUG Active High Rash 2017-0 MD INGREDI 4-14 Anderso 00:00: n 00 TIOTROPI DRUG Active High Sob 2017-0 MD UM INGREDI 4-14 Anderso BROMIDE 00:00: n 00 CETIRIZI DRUG Active Other 2017-0 MD NE INGREDI 4-14 Anderso 00:00: n 00 DEXLANSO DRUG Active Diarrhea 2017-0 MD PRAZOLE INGREDI 4-14 Anderso 00:00: n 00 MACROLID Drug Active Nausea 2017-0 MD E Class 4-14 Anderso ANTIBIOT 00:00: n ICS 00 TRIAMTER DRUG Active Swelling 2017-0 MD ELENA-HYDR 4-14 Anderso [place] 00:00: n HIAZID 00 ADHESIVE Drug Active Low Rash 2017-0 MD Class 4-14 Anderso 00:00: n 00 FLUTICAS DRUG Active Low Anxiety 2017-0 MD ONE 4-14 Anderso FUROATE- 00:00: n VILANTER 00 OL TIOTROPI DRUG Active High Sob 2017-0 MD UM INGREDI 4-14 Anderso BROMIDE 00:00: n 00 ZILEUTON DRUG Active Low Anxiety 2017-0 MD INGREDI 4-14 Anderso 00:00: n 00 BUDESONI DRUG Active High Sob 2017-0 MD DE-FORMO 4-14 Anderso TEROL 00:00: n 00 FLUTICAS DRUG Active High Sob 2017-0 MD ONE INGREDI 4-14 Anderso 00:00: n 00 LATEX DRUG Active High Rash 2017-0 MD INGREDI 4-14 Anderso 00:00: n 00 TIOTROPI DRUG Active High Sob 2017-0 MD UM INGREDI 4-14 Anderso BROMIDE 00:00: n 00 CETIRIZI DRUG Active Other 2017-0 MD NE INGREDI 4-14 Anderso 00:00: n 00 DEXLANSO DRUG Active Diarrhea 2017-0 MD PRAZOLE INGREDI 4-14 Anderso 00:00: n 00 MACROLID Drug Active Nausea 2017-0 MD E Class 4-14 Anderso ANTIBIOT 00:00: n ICS 00 CETIRIZI DRUG Active Other 2017-0 MD NE INGREDI 4-14 Anderso 00:00: n 00 TRIAMTER DRUG Active Swelling 2017-0 MD ELENA-HYDR 4-14 Anderso [place] 00:00: n HIAZID 00 ADHESIVE Drug Active Low Rash 2017-0 MD Class 4-14 Anderso 00:00: n 00 FLUTICAS DRUG Active Low Anxiety 2017-0 MD ONE 4-14 Anderso FUROATE- 00:00: n VILANTER 00 OL ZILEUTON DRUG Active Low Anxiety 2017-0 MD INGREDI 4-14 Anderso 00:00: n 00 BUDESONI DRUG Active High Sob 2017-0 MD DE-FORMO 4-14 Anderso TEROL 00:00: n 00 FLUTICAS DRUG Active High Sob 2017-0 MD ONE INGREDI 4-14 Anderso 00:00: n 00 LATEX DRUG Active High Rash 2017-0 MD INGREDI 4-14 Anderso 00:00: n 00 TIOTROPI DRUG Active High Sob 2017-0 MD UM INGREDI 4-14 Anderso BROMIDE 00:00: n 00 DEXLANSO DRUG Active Diarrhea 2017-0 MD PRAZOLE INGREDI 4-14 Anderso 00:00: n 00 CETIRIZI DRUG Active Other 2017-0 MD NE INGREDI 4-14 Anderso 00:00: n 00 DEXLANSO DRUG Active Diarrhea 2017-0 MD PRAZOLE INGREDI 4-14 Anderso 00:00: n 00 MACROLID Drug Active Nausea 2017-0 MD E Class 4-14 Anderso ANTIBIOT 00:00: n ICS 00 TRIAMTER DRUG Active Swelling 2017-0 MD ELENA-HYDR 4-14 Anderso [place] 00:00: n HIAZID 00 ADHESIVE Drug Active Low Rash 2017-0 MD Class 4-14 Anderso 00:00: n 00 FLUTICAS DRUG Active Low Anxiety 2017-0 MD ONE 4-14 Anderso FUROATE- 00:00: n VILANTER 00 OL ZILEUTON DRUG Active Low Anxiety 2017-0 MD INGREDI 4-14 Anderso 00:00: n 00 BUDESONI DRUG Active High Sob 2017-0 MD DE-FORMO 4-14 Anderso TEROL 00:00: n 00 FLUTICAS DRUG Active High Sob 2017-0 MD ONE INGREDI 4-14 Anderso 00:00: n 00 LATEX DRUG Active High Rash 2017-0 MD INGREDI 4-14 Anderso 00:00: n 00 MACROLID Drug Active Nausea 2017-0 MD E Class 4-14 Anderso ANTIBIOT 00:00: n ICS 00 TIOTROPI DRUG Active High Sob 2017-0 MD UM INGREDI 4-14 Anderso BROMIDE 00:00: n 00 CETIRIZI DRUG Active Other 2017-0 MD NE INGREDI 4-14 Anderso 00:00: n 00 DEXLANSO DRUG Active Diarrhea 2017-0 MD PRAZOLE INGREDI 4-14 Anderso 00:00: n 00 MACROLID Drug Active Nausea 2017-0 MD E Class 4-14 Anderso ANTIBIOT 00:00: n ICS 00 TRIAMTER DRUG Active Swelling 2017-0 MD ELENA-HYDR 4-14 Anderso [place] 00:00: n HIAZID 00 ADHESIVE Drug Active Low Rash 2017-0 MD Class 4-14 Anderso 00:00: n 00 FLUTICAS DRUG Active Low Anxiety 2017-0 MD ONE 4-14 Anderso FUROATE- 00:00: n VILANTER 00 OL ZILEUTON DRUG Active Low Anxiety 2017-0 MD INGREDI 4-14 Anderso 00:00: n 00 BUDESONI DRUG Active High Sob 2017-0 MD DE-FORMO 4-14 Anderso TEROL 00:00: n 00 FLUTICAS DRUG Active High Sob 2017-0 MD ONE INGREDI 4-14 Anderso 00:00: n 00 LATEX DRUG Active High Rash 2017-0 MD INGREDI 4-14 Anderso 00:00: n 00 TIOTROPI DRUG Active High Sob 2017-0 MD UM INGREDI 4-14 Anderso BROMIDE 00:00: n 00 CETIRIZI DRUG Active Other 2017-0 MD NE INGREDI 4-14 Anderso 00:00: n 00 DEXLANSO DRUG Active Diarrhea 2017-0 MD PRAZOLE INGREDI 4-14 Anderso 00:00: n 00 MACROLID Drug Active Nausea 2017-0 MD E Class 4-14 Anderso ANTIBIOT 00:00: n ICS 00 TRIAMTER DRUG Active Swelling 2017-0 MD ELENA-HYDR 4-14 Anderso [place] 00:00: n HIAZID 00 TRIAMTER DRUG Active Swelling 2017-0 MD ELENA-HYDR 4-14 Anderso [place] 00:00: n HIAZID 00 ADHESIVE Drug Active Low Rash 2017-0 MD Class 4-14 Anderso 00:00: n 00 FLUTICAS DRUG Active Low Anxiety 2017-0 MD ONE 4-14 Anderso FUROATE- 00:00: n VILANTER 00 OL ZILEUTON DRUG Active Low Anxiety 2017-0 MD INGREDI 4-14 Anderso 00:00: n 00 BUDESONI DRUG Active High Sob 2017-0 MD DE-FORMO 4-14 Anderso TEROL 00:00: n 00 FLUTICAS DRUG Active High Sob 2017-0 MD ONE INGREDI 4-14 Anderso 00:00: n 00 ADHESIVE Drug Active Low Rash 2017-0 MD Class 4-14 Anderso 00:00: n 00 LATEX DRUG Active High Rash 2017-0 MD INGREDI 4-14 Anderso 00:00: n 00 TIOTROPI DRUG Active High Sob 2017-0 MD UM INGREDI 4-14 Anderso BROMIDE 00:00: n 00 CETIRIZI DRUG Active Other 2017-0 MD NE INGREDI 4-14 Anderso 00:00: n 00 FLUTICAS DRUG Active Low Anxiety 2017-0 MD ONE 4-14 Anderso FUROATE- 00:00: n VILANTER 00 OL DEXLANSO DRUG Active Diarrhea 2017-0 MD PRAZOLE INGREDI 4-14 Anderso 00:00: n 00 MACROLID Drug Active Nausea 2017-0 MD E Class 4-14 Anderso ANTIBIOT 00:00: n ICS 00 TRIAMTER DRUG Active Swelling 2017-0 MD ELENA-HYDR 4-14 Anderso [place] 00:00: n HIAZID 00 ADHESIVE Drug Active Low Rash 2017-0 MD Class 4-14 Anderso 00:00: n 00 FLUTICAS DRUG Active Low Anxiety 2017-0 MD ONE 4-14 Anderso FUROATE- 00:00: n VILANTER 00 OL ZILEUTON DRUG Active Low Anxiety 2017-0 MD INGREDI 4-14 Anderso 00:00: n 00 BUDESONI DRUG Active High Sob 2017-0 MD DE-FORMO 4-14 Anderso TEROL 00:00: n 00 FLUTICAS DRUG Active High Sob 2017-0 MD ONE INGREDI 4-14 Anderso 00:00: n 00 LATEX DRUG Active High Rash 2017-0 MD INGREDI 4-14 Anderso 00:00: n 00 ZILEUTON DRUG Active Low Anxiety 2017-0 MD INGREDI 4-14 Anderso 00:00: n 00 TIOTROPI DRUG Active High Sob 2017-0 MD UM INGREDI 4-14 Anderso BROMIDE 00:00: n 00 CETIRIZI DRUG Active Other 2017-0 MD NE INGREDI 4-14 Anderso 00:00: n 00 DEXLANSO DRUG Active Diarrhea 2017-0 MD PRAZOLE INGREDI 4-14 Anderso 00:00: n 00 MACROLID Drug Active Nausea 2017-0 MD E Class 4-14 Anderso ANTIBIOT 00:00: n ICS 00 TRIAMTER DRUG Active Swelling 2017-0 MD ELENA-HYDR 4-14 Anderso [place] 00:00: n HIAZID 00 ADHESIVE Drug Active Low Rash 2017-0 MD Class 4-14 Anderso 00:00: n 00 FLUTICAS DRUG Active Low Anxiety 2017-0 MD ONE 4-14 Anderso FUROATE- 00:00: n VILANTER 00 OL ZILEUTON DRUG Active Low Anxiety 2017-0 MD INGREDI 4-14 Anderso 00:00: n 00 BUDESONI DRUG Active High Sob 2017-0 MD DE-FORMO 4-14 Anderso TEROL 00:00: n 00 FLUTICAS DRUG Active High Sob 2017-0 MD ONE INGREDI 4-14 Anderso 00:00: n 00 LATEX DRUG Active High Rash 2017-0 MD INGREDI 4-14 Anderso 00:00: n 00 TIOTROPI DRUG Active High Sob 2017-0 MD UM INGREDI 4-14 Anderso BROMIDE 00:00: n 00 CETIRIZI DRUG Active Other 2017-0 MD NE INGREDI 4-14 Anderso 00:00: n 00 DEXLANSO DRUG Active Diarrhea 2017-0 MD PRAZOLE INGREDI 4-14 Anderso 00:00: n 00 MACROLID Drug Active Nausea 2017-0 MD E Class 4-14 Anderso ANTIBIOT 00:00: n ICS 00 TRIAMTER DRUG Active Swelling 2017-0 MD ELENA-HYDR 4-14 Anderso [place] 00:00: n HIAZID 00 BUDESONI DRUG Active High Sob 2017-0 MD DE-FORMO 4-14 Anderso TEROL 00:00: n 00 ADHESIVE Drug Active Low Rash 2017-0 MD Class 4-14 Anderso 00:00: n 00 FLUTICAS DRUG Active Low Anxiety 2017-0 MD ONE 4-14 Anderso FUROATE- 00:00: n VILANTER 00 OL ZILEUTON DRUG Active Low Anxiety 2017-0 MD INGREDI 4-14 Anderso 00:00: n 00 BUDESONI DRUG Active High Sob 2017-0 MD DE-FORMO 4-14 Anderso TEROL 00:00: n 00 FLUTICAS DRUG Active High Sob 2017-0 MD ONE INGREDI 4-14 Anderso 00:00: n 00 FLUTICAS DRUG Active High Sob 2017-0 MD ONE INGREDI 4-14 Anderso 00:00: n 00 LATEX DRUG Active High Rash 2017-0 MD INGREDI 4-14 Anderso 00:00: n 00 TIOTROPI DRUG Active High Sob 2017-0 MD UM INGREDI 4-14 Anderso BROMIDE 00:00: n 00 CETIRIZI DRUG Active Other 2017-0 MD NE INGREDI 4-14 Anderso 00:00: n 00 LATEX DRUG Active High Rash 2017-0 MD INGREDI 4-14 Anderso 00:00: n 00 DEXLANSO DRUG Active Diarrhea 2017-0 MD PRAZOLE INGREDI 4-14 Anderso 00:00: n 00 MACROLID Drug Active Nausea 2017-0 MD E Class 4-14 Anderso ANTIBIOT 00:00: n ICS 00 TRIAMTER DRUG Active Swelling 2017-0 MD ELENA-HYDR 4-14 Anderso [place] 00:00: n HIAZID 00 ADHESIVE Drug Active Low Rash 2017-0 MD Class 4-14 Anderso 00:00: n 00 FLUTICAS DRUG Active Low Anxiety 2017-0 MD ONE 4-14 Anderso FUROATE- 00:00: n VILANTER 00 OL ZILEUTON DRUG Active Low Anxiety 2017-0 MD INGREDI 4-14 Anderso 00:00: n 00 BUDESONI DRUG Active High Sob 2017-0 MD DE-FORMO 4-14 Anderso TEROL 00:00: n 00 FLUTICAS DRUG Active High Sob 2017-0 MD ONE INGREDI 4-14 Anderso 00:00: n 00 LATEX DRUG Active High Rash 2017-0 MD INGREDI 4-14 Anderso 00:00: n 00 TIOTROPI DRUG Active High Sob 2017-0 MD UM INGREDI 4-14 Anderso BROMIDE 00:00: n 00 CETIRIZI DRUG Active Other 2017-0 MD NE INGREDI 4-14 Anderso 00:00: n 00 DEXLANSO DRUG Active Diarrhea 2017-0 MD PRAZOLE INGREDI 4-14 Anderso 00:00: n 00 MACROLID Drug Active Nausea 2017-0 MD E Class 4-14 Anderso ANTIBIOT 00:00: n ICS 00 TRIAMTER DRUG Active Swelling 2017-0 MD ELENA-HYDR 4-14 Anderso [place] 00:00: n HIAZID 00 ADHESIVE Drug Active Low Rash 2017-0 MD Class 4-14 Anderso 00:00: n 00 FLUTICAS DRUG Active Low Anxiety 2017-0 MD ONE 4-14 Anderso FUROATE- 00:00: n VILANTER 00 OL ZILEUTON DRUG Active Low Anxiety 2017-0 MD INGREDI 4-14 Anderso 00:00: n 00 BUDESONI DRUG Active High Sob 2017-0 MD DE-FORMO 4-14 Anderso TEROL 00:00: n 00 FLUTICAS DRUG Active High Sob 2017-0 MD ONE INGREDI 4-14 Anderso 00:00: n 00 LATEX DRUG Active High Rash 2017-0 MD INGREDI 4-14 Anderso 00:00: n 00 TIOTROPI DRUG Active High Sob 2017-0 MD UM INGREDI 4-14 Anderso BROMIDE 00:00: n 00 TIOTROPI DRUG Active High Sob 2017-0 MD UM INGREDI 4-14 Anderso BROMIDE 00:00: n 00 CETIRIZI DRUG Active Other 2017-0 MD NE INGREDI 4-14 Anderso 00:00: n 00 DEXLANSO DRUG Active Diarrhea 2017-0 MD PRAZOLE INGREDI 4-14 Anderso 00:00: n 00 MACROLID Drug Active Nausea 2017-0 MD E Class 4-14 Anderso ANTIBIOT 00:00: n ICS 00 TRIAMTER DRUG Active Swelling 2017-0 MD ELENA-HYDR 4-14 [place]o [place] 00:00: n HIAZID 00 ADHESIVE Drug Active Low Rash 2017-0 MD Class 4-14 Anderso 00:00: n 00 FLUTICAS DRUG Active Low Anxiety 2017-0 MD ONE 4-14 Anderso FUROATE- 00:00: n VILANTER 00 OL ZILEUTON DRUG Active Low Anxiety 2017-0 MD INGREDI 4-14 Anderso 00:00: n 00 BUDESONI DRUG Active High Sob 2017-0 MD DE-FORMO 4-14 Anderso TEROL 00:00: n 00 FLUTICAS DRUG Active High Sob 2017-0 MD ONE INGREDI 4-14 Anderso 00:00: n 00 LATEX DRUG Active High Rash 2017-0 MD INGREDI 4-14 Anderso 00:00: n 00 CETIRIZI DRUG Active Other 2017-0 MD NE INGREDI 4-14 Anderso 00:00: n 00 TIOTROPI DRUG Active High Sob 2017-0 MD UM INGREDI 4-14 Anderso BROMIDE 00:00: n 00 CETIRIZI DRUG Active Other 2017-0 MD NE INGREDI 4-14 Anderso 00:00: n 00 DEXLANSO DRUG Active Diarrhea 2017-0 MD PRAZOLE INGREDI 4-14 Anderso 00:00: n 00 MACROLID Drug Active Nausea 2017-0 MD E Class 4-14 Anderso ANTIBIOT 00:00: n ICS 00 TRIAMTER DRUG Active Swelling 2017-0 MD ELENA-HYDR 4-14 Anderso [place] 00:00: n HIAZID 00 ADHESIVE Drug Active Low Rash 2017-0 MD Class 4-14 Anderso 00:00: n 00 FLUTICAS DRUG Active Low Anxiety 2017-0 MD ONE 4-14 Anderso FUROATE- 00:00: n VILANTER 00 OL ZILEUTON DRUG Active Low Anxiety 2017-0 MD INGREDI 4-14 Anderso 00:00: n 00 DEXLANSO DRUG Active Diarrhea 2017-0 MD PRAZOLE INGREDI 4-14 Anderso 00:00: n 00 BUDESONI DRUG Active High Sob 2017-0 MD DE-FORMO 4-14 Anderso TEROL 00:00: n 00 FLUTICAS DRUG Active High Sob 2017-0 MD ONE INGREDI 4-14 Anderso 00:00: n 00 LATEX DRUG Active High Rash 2017-0 MD INGREDI 4-14 Anderso 00:00: n 00 TIOTROPI DRUG Active High Sob 2017-0 MD UM INGREDI 4-14 Anderso BROMIDE 00:00: n 00 CETIRIZI DRUG Active Other 2017-0 MD NE INGREDI 4-14 Anderso 00:00: n 00 DEXLANSO DRUG Active Diarrhea 2017-0 MD PRAZOLE INGREDI 4-14 Anderso 00:00: n 00 MACROLID Drug Active Nausea 2017-0 MD E Class 4-14 Anderso ANTIBIOT 00:00: n ICS 00 MACROLID Drug Active Nausea 2017-0 MD E Class 4-14 Anderso ANTIBIOT 00:00: n ICS 00 TRIAMTER DRUG Active Swelling 2017-0 MD ELENA-HYDR 4-14 Anderso [place] 00:00: n HIAZID 00 ADHESIVE Drug Active Low Rash 2017-0 MD Class 4-14 Anderso 00:00: n 00 FLUTICAS DRUG Active Low Anxiety 2017-0 MD ONE 4-14 Anderso FUROATE- 00:00: n VILANTER 00 OL ZILEUTON DRUG Active Low Anxiety 2017-0 MD INGREDI 4-14 Anderso 00:00: n 00 BUDESONI DRUG Active High Sob 2017-0 MD DE-FORMO 4-14 Anderso TEROL 00:00: n 00 FLUTICAS DRUG Active High Sob 2017-0 MD ONE INGREDI 4-14 Anderso 00:00: n 00 LATEX DRUG Active High Rash 2017-0 MD INGREDI 4-14 Anderso 00:00: n 00 TIOTROPI DRUG Active High Sob 2017-0 MD UM INGREDI 4-14 Anderso BROMIDE 00:00: n 00 TRIAMTER DRUG Active Swelling 2017-0 MD ELENA-HYDR 4-14 Anderso [place] 00:00: n HIAZID 00 CETIRIZI DRUG Active Other 2017-0 MD NE INGREDI 4-14 Anderso 00:00: n 00 DEXLANSO DRUG Active Diarrhea 2017-0 MD PRAZOLE INGREDI 4-14 Anderso 00:00: n 00 MACROLID Drug Active Nausea 2017-0 MD E Class 4-14 Anderso ANTIBIOT 00:00: n ICS 00 TRIAMTER DRUG Active Swelling 2017-0 MD ELENA-HYDR 4-14 Anderso [place] 00:00: n HIAZID 00 ADHESIVE Drug Active Low Rash 2017-0 MD Class 4-14 Anderso 00:00: n 00 FLUTICAS DRUG Active Low Anxiety 2017-0 MD ONE 4-14 Anderso FUROATE- 00:00: n VILANTER 00 OL ZILEUTON DRUG Active Low Anxiety 2017-0 MD INGREDI 4-14 Anderso 00:00: n 00 BUDESONI DRUG Active High Sob 2017-0 MD DE-FORMO 4-14 Anderso TEROL 00:00: n 00 FLUTICAS DRUG Active High Sob 2017-0 MD ONE INGREDI 4-14 Anderso 00:00: n 00 LATEX DRUG Active High Rash 2017-0 MD INGREDI 4-14 Anderso 00:00: n 00 TRIAMTER DRUG Active Swelling 2017-0 MD ELENA-HYDR 4-14 Anderso [place] 00:00: n HIAZID 00 TIOTROPI DRUG Active High Sob 2017-0 MD UM INGREDI 4-14 Anderso BROMIDE 00:00: n 00 CETIRIZI DRUG Active Other 2017-0 MD NE INGREDI 4-14 Anderso 00:00: n 00 DEXLANSO DRUG Active Diarrhea 2017-0 MD PRAZOLE INGREDI 4-14 Anderso 00:00: n 00 ADHESIVE Drug Active Low Rash 2017-0 MD Class 4-14 Anderso 00:00: n 00 MACROLID Drug Active Nausea 2017-0 MD E Class 4-14 Anderso ANTIBIOT 00:00: n ICS 00 TRIAMTER DRUG Active Swelling 2017-0 MD ELENA-HYDR 4-14 Anderso [place] 00:00: n HIAZID 00 ADHESIVE Drug Active Low Rash 2017-0 MD Class 4-14 Anderso 00:00: n 00 FLUTICAS DRUG Active Low Anxiety 2017-0 MD ONE 4-14 Anderso FUROATE- 00:00: n VILANTER 00 OL ZILEUTON DRUG Active Low Anxiety 2017-0 MD INGREDI 4-14 Anderso 00:00: n 00 FLUTICAS DRUG Active Low Anxiety 2017-0 MD ONE 4-14 Anderso FUROATE- 00:00: n VILANTER 00 OL BUDESONI DRUG Active High Sob 2017-0 MD DE-FORMO 4-14 Anderso TEROL 00:00: n 00 FLUTICAS DRUG Active High Sob 2017-0 MD ONE INGREDI 4-14 Anderso 00:00: n 00 LATEX DRUG Active High Rash 2017-0 MD INGREDI 4-14 Anderso 00:00: n 00 TIOTROPI DRUG Active High Sob 2017-0 MD UM INGREDI 4-14 Anderso BROMIDE 00:00: n 00 CETIRIZI DRUG Active Other 2017-0 MD NE INGREDI 4-14 Anderso 00:00: n 00 DEXLANSO DRUG Active Diarrhea 2017-0 MD PRAZOLE INGREDI 4-14 Anderso 00:00: n 00 MACROLID Drug Active Nausea 2017-0 MD E Class 4-14 Anderso ANTIBIOT 00:00: n ICS 00 ZILEUTON DRUG Active Low Anxiety 2017-0 MD INGREDI 4-14 Anderso 00:00: n 00 TRIAMTER DRUG Active Swelling 2017-0 MD ELENA-HYDR 4-14 Anderso [place] 00:00: n HIAZID 00 ADHESIVE Drug Active Low Rash 2017-0 MD Class 4-14 Anderso 00:00: n 00 FLUTICAS DRUG Active Low Anxiety 2017-0 MD ONE 4-14 Anderso FUROATE- 00:00: n VILANTER 00 OL ZILEUTON DRUG Active Low Anxiety 2017-0 MD INGREDI 4-14 Anderso 00:00: n 00 BUDESONI DRUG Active High Sob 2017-0 MD DE-FORMO 4-14 Anderso TEROL 00:00: n 00 FLUTICAS DRUG Active High Sob 2017-0 MD ONE INGREDI 4-14 Anderso 00:00: n 00 LATEX DRUG Active High Rash 2017-0 MD INGREDI 4-14 Anderso 00:00: n 00 TIOTROPI DRUG Active High Sob 2017-0 MD UM INGREDI 4-14 Anderso BROMIDE 00:00: n 00 CETIRIZI DRUG Active Other 2017-0 MD NE INGREDI 4-14 Anderso 00:00: n 00 DEXLANSO DRUG Active Diarrhea 2017-0 MD PRAZOLE INGREDI 4-14 Anderso 00:00: n 00 MACROLID Drug Active Nausea 2017-0 MD E Class 4-14 Anderso ANTIBIOT 00:00: n ICS 00 TRIAMTER DRUG Active Swelling 2017-0 MD ELENA-HYDR 4-14 Anderso [place] 00:00: n HIAZID 00 ADHESIVE Drug Active Low Rash 2017-0 MD Class 4-14 Anderso 00:00: n 00 FLUTICAS DRUG Active Low Anxiety 2017-0 MD ONE 4-14 Anderso FUROATE- 00:00: n VILANTER 00 OL ZILEUTON DRUG Active Low Anxiety 2017-0 MD INGREDI 4-14 Anderso 00:00: n 00 BUDESONI DRUG Active High Sob 2017-0 MD DE-FORMO 4-14 Anderso TEROL 00:00: n 00 FLUTICAS DRUG Active High Sob 2017-0 MD ONE INGREDI 4-14 Anderso 00:00: n 00 LATEX DRUG Active High Rash 2017-0 MD INGREDI 4-14 Anderso 00:00: n 00 ADHESIVE Drug Active Low Rash 2017-0 MD Class 4-14 Anderso 00:00: n 00 BUDESONI DRUG Active High Sob 2017-0 MD DE-FORMO 4-14 Anderso TEROL 00:00: n 00 TIOTROPI DRUG Active High Sob 2017-0 MD UM INGREDI 4-14 Anderso BROMIDE 00:00: n 00 CETIRIZI DRUG Active Other 2017-0 MD NE INGREDI 4-14 Anderso 00:00: n 00 DEXLANSO DRUG Active Diarrhea 2017-0 MD PRAZOLE INGREDI 4-14 Anderso 00:00: n 00 MACROLID Drug Active Nausea 2017-0 MD E Class 4-14 Anderso ANTIBIOT 00:00: n ICS 00 FLUTICAS DRUG Active High Sob 2017-0 MD ONE INGREDI 4-14 Anderso 00:00: n 00 TRIAMTER DRUG Active Swelling 2017-0 MD ELENA-HYDR 4-14 Anderso [place] 00:00: n HIAZID 00 ADHESIVE Drug Active Low Rash 2017-0 MD Class 4-14 Anderso 00:00: n 00 FLUTICAS DRUG Active Low Anxiety 2017-0 MD ONE 4-14 Anderso FUROATE- 00:00: n VILANTER 00 OL ZILEUTON DRUG Active Low Anxiety 2017-0 MD INGREDI 4-14 Anderso 00:00: n 00 LATEX DRUG Active High Rash 2017-0 MD INGREDI 4-14 Anderso 00:00: n 00 BUDESONI DRUG Active High Sob 2017-0 MD DE-FORMO 4-14 Anderso TEROL 00:00: n 00 FLUTICAS DRUG Active High Sob 2017-0 MD ONE INGREDI 4-14 Anderso 00:00: n 00 LATEX DRUG Active High Rash 2017-0 MD INGREDI 4-14 Anderso 00:00: n 00 TIOTROPI DRUG Active High Sob 2017-0 MD UM INGREDI 4-14 Anderso BROMIDE 00:00: n 00 CETIRIZI DRUG Active Other 2017-0 MD NE INGREDI 4-14 Anderso 00:00: n 00 DEXLANSO DRUG Active Diarrhea 2017-0 MD PRAZOLE INGREDI 4-14 Anderso 00:00: n 00 MACROLID Drug Active Nausea 2017-0 MD E Class 4-14 Anderso ANTIBIOT 00:00: n ICS 00 TRIAMTER DRUG Active Swelling 2017-0 MD ELENA-HYDR 4-14 Anderso [place] 00:00: n HIAZID 00 ADHESIVE Drug Active Low Rash 2017-0 MD Class 4-14 Anderso 00:00: n 00 FLUTICAS DRUG Active Low Anxiety 2017-0 MD ONE 4-14 Anderso FUROATE- 00:00: n VILANTER 00 OL ZILEUTON DRUG Active Low Anxiety 2017-0 MD INGREDI 4-14 Anderso 00:00: n 00 BUDESONI DRUG Active High Sob 2017-0 MD DE-FORMO 4-14 Anderso TEROL 00:00: n 00 FLUTICAS DRUG Active High Sob 2017-0 MD ONE INGREDI 4-14 Anderso 00:00: n 00 LATEX DRUG Active High Rash 2017-0 MD INGREDI 4-14 Anderso 00:00: n 00 TIOTROPI DRUG Active High Sob 2017-0 MD UM INGREDI 4-14 Anderso BROMIDE 00:00: n 00 CETIRIZI DRUG Active Other 2017-0 MD NE INGREDI 4-14 Anderso 00:00: n 00 DEXLANSO DRUG Active Diarrhea 2017-0 MD PRAZOLE INGREDI 4-14 Anderso 00:00: n 00 MACROLID Drug Active Nausea 2017-0 MD E Class 4-14 Anderso ANTIBIOT 00:00: n ICS 00 TRIAMTER DRUG Active Swelling 2017-0 MD ELENA-HYDR 4-14 Anderso [place] 00:00: n HIAZID 00 ADHESIVE Drug Active Low Rash 2017-0 MD Class 4-14 Anderso 00:00: n 00 FLUTICAS DRUG Active Low Anxiety 2017-0 MD ONE 4-14 Anderso FUROATE- 00:00: n VILANTER 00 OL ZILEUTON DRUG Active Low Anxiety 2017-0 MD INGREDI 4-14 Anderso 00:00: n 00 TIOTROPI DRUG Active High Sob 2017-0 MD UM INGREDI 4-14 Anderso BROMIDE 00:00: n 00 BUDESONI DRUG Active High Sob 2017-0 MD DE-FORMO 4-14 Anderso TEROL 00:00: n 00 FLUTICAS DRUG Active High Sob 2017-0 MD ONE INGREDI 4-14 Anderso 00:00: n 00 LATEX DRUG Active High Rash 2017-0 MD INGREDI 4-14 Anderso 00:00: n 00 TIOTROPI DRUG Active High Sob 2017-0 MD UM INGREDI 4-14 Anderso BROMIDE 00:00: n 00 CETIRIZI DRUG Active Other 2017-0 MD NE INGREDI 4-14 Anderso 00:00: n 00 DEXLANSO DRUG Active Diarrhea 2017-0 MD PRAZOLE INGREDI 4-14 Anderso 00:00: n 00 MACROLID Drug Active Nausea 2017-0 MD E Class 4-14 Anderso ANTIBIOT 00:00: n ICS 00 CETIRIZI DRUG Active Other 2017-0 MD NE INGREDI 4-14 Anderso 00:00: n 00 TRIAMTER DRUG Active Swelling 2017-0 MD ELENA-HYDR 4-14 Anderso [place] 00:00: n HIAZID 00 ADHESIVE Drug Active Low Rash 2017-0 MD Class 4-14 Anderso 00:00: n 00 FLUTICAS DRUG Active Low Anxiety 2017-0 MD ONE 4-14 Anderso FUROATE- 00:00: n VILANTER 00 OL ZILEUTON DRUG Active Low Anxiety 2017-0 MD INGREDI 4-14 Anderso 00:00: n 00 BUDESONI DRUG Active High Sob 2017-0 MD DE-FORMO 4-14 Anderso TEROL 00:00: n 00 FLUTICAS DRUG Active High Sob 2017-0 MD ONE INGREDI 4-14 Anderso 00:00: n 00 FLUTICAS DRUG Active Low Anxiety 2017-0 MD ONE 4-14 Anderso FUROATE- 00:00: n VILANTER 00 OL LATEX DRUG Active High Rash 2017-0 MD INGREDI 4-14 Anderso 00:00: n 00 TIOTROPI DRUG Active High Sob 2017-0 MD UM INGREDI 4-14 Anderso BROMIDE 00:00: n 00 CETIRIZI DRUG Active Other 2017-0 MD NE INGREDI 4-14 Anderso 00:00: n 00 DEXLANSO DRUG Active Diarrhea 2017-0 MD PRAZOLE INGREDI 4-14 Anderso 00:00: n 00 DEXLANSO DRUG Active Diarrhea 2017-0 MD PRAZOLE INGREDI 4-14 Anderso 00:00: n 00 MACROLID Drug Active Nausea 2017-0 MD E Class 4-14 Anderso ANTIBIOT 00:00: n ICS 00 TRIAMTER DRUG Active Swelling 2017-0 MD ELENA-HYDR 4-14 Anderso [place] 00:00: n HIAZID 00 ADHESIVE Drug Active Low Rash 2017-0 MD Class 4-14 Anderso 00:00: n 00 FLUTICAS DRUG Active Low Anxiety 2017-0 MD ONE 4-14 Anderso FUROATE- 00:00: n VILANTER 00 OL ZILEUTON DRUG Active Low Anxiety 2017-0 MD INGREDI 4-14 Anderso 00:00: n 00 BUDESONI DRUG Active High Sob 2017-0 MD DE-FORMO 4-14 Anderso TEROL 00:00: n 00 FLUTICAS DRUG Active High Sob 2017-0 MD ONE INGREDI 4-14 Anderso 00:00: n 00 LATEX DRUG Active High Rash 2017-0 MD INGREDI 4-14 Anderso 00:00: n 00 MACROLID Drug Active Nausea 2017-0 MD E Class 4-14 Anderso ANTIBIOT 00:00: n ICS 00 TIOTROPI DRUG Active High Sob 2017-0 MD UM INGREDI 4-14 Anderso BROMIDE 00:00: n 00 CETIRIZI DRUG Active Other 2017-0 MD NE INGREDI 4-14 Anderso 00:00: n 00 DEXLANSO DRUG Active Diarrhea 2017-0 MD PRAZOLE INGREDI 4-14 Anderso 00:00: n 00 MACROLID Drug Active Nausea 2017-0 MD E Class 4-14 Anderso ANTIBIOT 00:00: n ICS 00 TRIAMTER DRUG Active Swelling 2017-0 MD ELENA-HYDR 4-14 Anderso [place] 00:00: n HIAZID 00 ADHESIVE Drug Active Low Rash 2017-0 MD Class 4-14 Anderso 00:00: n 00 FLUTICAS DRUG Active Low Anxiety 2017-0 MD ONE 4-14 Anderso FUROATE- 00:00: n VILANTER 00 OL ZILEUTON DRUG Active Low Anxiety 2017-0 MD INGREDI 4-14 Anderso 00:00: n 00 BUDESONI DRUG Active High Sob 2017-0 MD DE-FORMO 4-14 Anderso TEROL 00:00: n 00 FLUTICAS DRUG Active High Sob 2017-0 MD ONE INGREDI 4-14 Anderso 00:00: n 00 LATEX DRUG Active High Rash 2017-0 MD INGREDI 4-14 Anderso 00:00: n 00 TIOTROPI DRUG Active High Sob 2017-0 MD UM INGREDI 4-14 Anderso BROMIDE 00:00: n 00 CETIRIZI DRUG Active Other 2017-0 MD NE INGREDI 4-14 Anderso 00:00: n 00 DEXLANSO DRUG Active Diarrhea 2017-0 MD PRAZOLE INGREDI 4-14 Anderso 00:00: n 00 MACROLID Drug Active Nausea 2017-0 MD E Class 4-14 Anderso ANTIBIOT 00:00: n ICS 00 TRIAMTER DRUG Active Swelling 2017-0 MD ELENA-HYDR 4-14 Anderso [place] 00:00: n HIAZID 00 TRIAMTER DRUG Active Swelling 2017-0 MD ELENA-HYDR 4-14 Anderso [place] 00:00: n HIAZID 00 ADHESIVE Drug Active Low Rash 2017-0 MD Class 4-14 Anderso 00:00: n 00 FLUTICAS DRUG Active Low Anxiety 2017-0 MD ONE 4-14 Anderso FUROATE- 00:00: n VILANTER 00 OL ZILEUTON DRUG Active Low Anxiety 2017-0 MD INGREDI 4-14 Anderso 00:00: n 00 BUDESONI DRUG Active High Sob 2017-0 MD DE-FORMO 4-14 Anderso TEROL 00:00: n 00 FLUTICAS DRUG Active High Sob 2017-0 MD ONE INGREDI 4-14 Anderso 00:00: n 00 LATEX DRUG Active High Rash 2017-0 MD INGREDI 4-14 Anderso 00:00: n 00 ADHESIVE Drug Active Low Rash 2017-0 MD Class 4-14 Anderso 00:00: n 00 TIOTROPI DRUG Active High Sob 2017-0 MD UM INGREDI 4-14 Anderso BROMIDE 00:00: n 00 CETIRIZI DRUG Active Other 2017-0 MD NE INGREDI 4-14 Anderso 00:00: n 00 DEXLANSO DRUG Active Diarrhea 2017-0 MD PRAZOLE INGREDI 4-14 Anderso 00:00: n 00 FLUTICAS DRUG Active Low Anxiety 2017-0 MD ONE 4-14 Anderso FUROATE- 00:00: n VILANTER 00 OL MACROLID Drug Active Nausea 2017-0 MD E Class 4-14 Anderso ANTIBIOT 00:00: n ICS 00 TRIAMTER DRUG Active Swelling 2017-0 MD ELENA-HYDR 4-14 Anderso [place] 00:00: n HIAZID 00 ADHESIVE Drug Active Low Rash 2017-0 MD Class 4-14 Anderso 00:00: n 00 FLUTICAS DRUG Active Low Anxiety 2017-0 MD ONE 4-14 Anderso FUROATE- 00:00: n VILANTER 00 OL ZILEUTON DRUG Active Low Anxiety 2017-0 MD INGREDI 4-14 Anderso 00:00: n 00 BUDESONI DRUG Active High Sob 2017-0 MD DE-FORMO 4-14 Anderso TEROL 00:00: n 00 FLUTICAS DRUG Active High Sob 2017-0 MD ONE INGREDI 4-14 Anderso 00:00: n 00 LATEX DRUG Active High Rash 2017-0 MD INGREDI 4-14 Anderso 00:00: n 00 ZILEUTON DRUG Active Low Anxiety 2017-0 MD INGREDI 4-14 Anderso 00:00: n 00 TIOTROPI DRUG Active High Sob 2017-0 MD UM INGREDI 4-14 Anderso BROMIDE 00:00: n 00 CETIRIZI DRUG Active Other 2017-0 MD NE INGREDI 4-14 Anderso 00:00: n 00 DEXLANSO DRUG Active Diarrhea 2017-0 MD PRAZOLE INGREDI 4-14 Anderso 00:00: n 00 MACROLID Drug Active Nausea 2017-0 MD E Class 4-14 Anderso ANTIBIOT 00:00: n ICS 00 TRIAMTER DRUG Active Swelling 2017-0 MD ELENA-HYDR 4-14 [place]o [place] 00:00: n HIAZID 00 ADHESIVE Drug Active Low Rash 2017-0 MD Class 4-14 Anderso 00:00: n 00 FLUTICAS DRUG Active Low Anxiety 2017-0 MD ONE 4-14 Anderso FUROATE- 00:00: n VILANTER 00 OL ZILEUTON DRUG Active Low Anxiety 2017-0 MD INGREDI 4-14 Anderso 00:00: n 00 BUDESONI DRUG Active High Sob 2017-0 MD DE-FORMO 4-14 Anderso TEROL 00:00: n 00 FLUTICAS DRUG Active High Sob 2017-0 MD ONE INGREDI 4-14 Anderso 00:00: n 00 LATEX DRUG Active High Rash 2017-0 MD INGREDI 4-14 Anderso 00:00: n 00 TIOTROPI DRUG Active High Sob 2017-0 MD UM INGREDI 4-14 Anderso BROMIDE 00:00: n 00 CETIRIZI DRUG Active Other 2017-0 MD NE INGREDI 4-14 Anderso 00:00: n 00 DEXLANSO DRUG Active Diarrhea 2017-0 MD PRAZOLE INGREDI 4-14 Anderso 00:00: n 00 MACROLID Drug Active Nausea 2017-0 MD E Class 4-14 Anderso ANTIBIOT 00:00: n ICS 00 BUDESONI DRUG Active High Sob 2017-0 MD DE-FORMO 4-14 Anderso TEROL 00:00: n 00 TRIAMTER DRUG Active Swelling 2017-0 MD ELENA-HYDR 4-14 [place]o [place] 00:00: n HIAZID 00 ADHESIVE Drug Active Low Rash 2017-0 MD Class 4-14 Anderso 00:00: n 00 FLUTICAS DRUG Active Low Anxiety 2017-0 MD ONE 4-14 Anderso FUROATE- 00:00: n VILANTER 00 OL ZILEUTON DRUG Active Low Anxiety 2017-0 MD INGREDI 4-14 Anderso 00:00: n 00 BUDESONI DRUG Active High Sob 2017-0 MD DE-FORMO 4-14 Anderso TEROL 00:00: n 00 FLUTICAS DRUG Active High Sob 2017-0 MD ONE INGREDI 4-14 Anderso 00:00: n 00 FLUTICAS DRUG Active High Sob 2017-0 MD ONE INGREDI 4-14 Anderso 00:00: n 00 LATEX DRUG Active High Rash 2017-0 MD INGREDI 4-14 Anderso 00:00: n 00 TIOTROPI DRUG Active High Sob 2017-0 MD UM INGREDI 4-14 Anderso BROMIDE 00:00: n 00 CETIRIZI DRUG Active Other 2017-0 MD NE INGREDI 4-14 Anderso 00:00: n 00 LATEX DRUG Active High Rash 2017-0 MD INGREDI 4-14 Anderso 00:00: n 00 DEXLANSO DRUG Active Diarrhea 2017-0 MD PRAZOLE INGREDI 4-14 Anderso 00:00: n 00 MACROLID Drug Active Nausea 2017-0 MD E Class 4-14 Anderso ANTIBIOT 00:00: n ICS 00 TRIAMTER DRUG Active Swelling 2017-0 MD ELENA-HYDR 4-14 [place]o [place] 00:00: n HIAZID 00 ADHESIVE Drug Active Low Rash 2017-0 MD Class 4-14 Anderso 00:00: n 00 FLUTICAS DRUG Active Low Anxiety 2017-0 MD ONE 4-14 Anderso FUROATE- 00:00: n VILANTER 00 OL ZILEUTON DRUG Active Low Anxiety 2017-0 MD INGREDI 4-14 Anderso 00:00: n 00 BUDESONI DRUG Active High Sob 2017-0 MD DE-FORMO 4-14 Anderso TEROL 00:00: n 00 FLUTICAS DRUG Active High Sob 2017-0 MD ONE INGREDI 4-14 Anderso 00:00: n 00 LATEX DRUG Active High Rash 2017-0 MD INGREDI 4-14 Anderso 00:00: n 00 TIOTROPI DRUG Active High Sob 2017-0 MD UM INGREDI 4-14 Anderso BROMIDE 00:00: n 00 CETIRIZI DRUG Active Other 2017-0 MD NE INGREDI 4-14 Anderso 00:00: n 00 DEXLANSO DRUG Active Diarrhea 2017-0 MD PRAZOLE INGREDI 4-14 Anderso 00:00: n 00 ZILEUTON DRUG Active Low Anxiety 2017-0 MD INGREDI 4-14 Anderso 00:00: n 00 MACROLID Drug Active Nausea 2017-0 MD E Class 4-14 Anderso ANTIBIOT 00:00: n ICS 00 TRIAMTER DRUG Active Swelling 2017-0 MD ELENA-HYDR 4-14 Anderso [place] 00:00: n HIAZID 00 ADHESIVE Drug Active Low Rash 2017-0 MD Class 4-14 Anderso 00:00: n 00 FLUTICAS DRUG Active Low Anxiety 2017-0 MD ONE 4-14 Anderso FUROATE- 00:00: n VILANTER 00 OL ZILEUTON DRUG Active Low Anxiety 2017-0 MD INGREDI 4-14 Anderso 00:00: n 00 BUDESONI DRUG Active High Sob 2017-0 MD DE-FORMO 4-14 Anderso TEROL 00:00: n 00 FLUTICAS DRUG Active High Sob 2017-0 MD ONE INGREDI 4-14 Anderso 00:00: n 00 LATEX DRUG Active High Rash 2017-0 MD INGREDI 4-14 Anderso 00:00: n 00 TIOTROPI DRUG Active High Sob 2017-0 MD UM INGREDI 4-14 Anderso BROMIDE 00:00: n 00 TIOTROPI DRUG Active High Sob 2017-0 MD UM INGREDI 4-14 Anderso BROMIDE 00:00: n 00 CETIRIZI DRUG Active Other 2017-0 MD NE INGREDI 4-14 Anderso 00:00: n 00 DEXLANSO DRUG Active Diarrhea 2017-0 MD PRAZOLE INGREDI 4-14 Anderso 00:00: n 00 MACROLID Drug Active Nausea 2017-0 MD E Class 4-14 Anderso ANTIBIOT 00:00: n ICS 00 TRIAMTER DRUG Active Swelling 2017-0 MD ELENA-HYDR 4-14 Anderso [place] 00:00: n HIAZID 00 ADHESIVE Drug Active Low Rash 2017-0 MD Class 4-14 Anderso 00:00: n 00 FLUTICAS DRUG Active Low Anxiety 2017-0 MD ONE 4-14 Anderso FUROATE- 00:00: n VILANTER 00 OL ZILEUTON DRUG Active Low Anxiety 2017-0 MD INGREDI 4-14 Anderso 00:00: n 00 BUDESONI DRUG Active High Sob 2017-0 MD DE-FORMO 4-14 Anderso TEROL 00:00: n 00 CETIRIZI DRUG Active Other 2017-0 MD NE INGREDI 4-14 Anderso 00:00: n 00 FLUTICAS DRUG Active High Sob 2017-0 MD ONE INGREDI 4-14 Anderso 00:00: n 00 LATEX DRUG Active High Rash 2017-0 MD INGREDI 4-14 Anderso 00:00: n 00 TIOTROPI DRUG Active High Sob 2017-0 MD UM INGREDI 4-14 Anderso BROMIDE 00:00: n 00 CETIRIZI DRUG Active Other 2017-0 MD NE INGREDI 4-14 Anderso 00:00: n 00 DEXLANSO DRUG Active Diarrhea 2017-0 MD PRAZOLE INGREDI 4-14 Anderso 00:00: n 00 MACROLID Drug Active Nausea 2017-0 MD E Class 4-14 Anderso ANTIBIOT 00:00: n ICS 00 TRIAMTER DRUG Active Swelling 2017-0 MD ELENA-HYDR 4-14 Anderso [place] 00:00: n HIAZID 00 DEXLANSO DRUG Active Diarrhea 2017-0 MD PRAZOLE INGREDI 4-14 Anderso 00:00: n 00 ADHESIVE Drug Active Low Rash 2017-0 MD Class 4-14 Anderso 00:00: n 00 FLUTICAS DRUG Active Low Anxiety 2017-0 MD ONE 4-14 Anderso FUROATE- 00:00: n VILANTER 00 OL ZILEUTON DRUG Active Low Anxiety 2017-0 MD INGREDI 4-14 Anderso 00:00: n 00 BUDESONI DRUG Active High Sob 2017-0 MD DE-FORMO 4-14 Anderso TEROL 00:00: n 00 FLUTICAS DRUG Active High Sob 2017-0 MD ONE INGREDI 4-14 Anderso 00:00: n 00 LATEX DRUG Active High Rash 2017-0 MD INGREDI 4-14 Anderso 00:00: n 00 TIOTROPI DRUG Active High Sob 2017-0 MD UM INGREDI 4-14 Anderso BROMIDE 00:00: n 00 CETIRIZI DRUG Active Other 2017-0 MD NE INGREDI 4-14 Anderso 00:00: n 00 DEXLANSO DRUG Active Diarrhea 2017-0 MD PRAZOLE INGREDI 4-14 Anderso 00:00: n 00 MACROLID Drug Active Nausea 2017-0 MD E Class 4-14 Anderso ANTIBIOT 00:00: n ICS 00 MACROLID Drug Active Nausea 2017-0 MD E Class 4-14 Anderso ANTIBIOT 00:00: n ICS 00 TRIAMTER DRUG Active Swelling 2017-0 MD ELENA-HYDR 4-14 [facility] [place] 00:00: n HIAZID 00 ADHESIVE Drug Active Low Rash 2017-0 MD Class 4-14 [facility] 00:00: n 00 FLUTICAS DRUG Active Low Anxiety 2017-0 MD ONE 4-14 Anderso [facility]- 00:00: n VILANTER 00 OL ZILEUTON DRUG Active Low Anxiety 2017-0 MD INGREDI 4-14 Anders[facility] 00:00: n 00 BUDESONI DRUG Active High Sob 2017-0 MD DE-FORMO 4-14 Anderso [facility] 00:00: n 00 FLUTICAS DRUG Active High Sob 2017-0 MD ONE INGREDI 4-14 Anderso 00:00: n 00 LATEX DRUG Active High Rash 2017-0 MD INGREDI 4-14 [facility] 00:00: n 00 TIOTROPI DRUG Active High Sob 2017-0 MD UM INGREDI 4-14 Anderso [facility] 00:00: n 00 CETIRIZI DRUG Active Other 2017-0 MD NE INGREDI 4-14 [facility] 00:00: n 00 DEXLANSO DRUG Active Diarrhea 2017-0 MD PRAZOLE INGREDI 4-14 [facility] 00:00: n 00 MACROLID Drug Active Nausea 2017-0 MD E Class 4-14 [facility] 00:00: n ICS 00 TRIAMTER DRUG Active Swelling 2017-0 MD ELENA-HYDR 4-14 [facility] [place] 00:00: n HIAZID 00 ADHESIVE Drug Active Low Rash 2017-0 MD Class 4-14 Anders[facility] 00:00: n 00 FLUTICAS DRUG Active Low Anxiety 2017-0 MD ONE 4-14 Anderso [facility]- 00:00: n VILANTER 00 OL ZILEUTON DRUG Active Low Anxiety 2017-0 MD INGREDI 4-14 [facility] 00:00: n 00 TRIAMTER DRUG Active Swelling 2017-0 MD ELENA-HYDR 4-14 [facility] [place] 00:00: n HIAZID 00 BUDESONI DRUG Active High Sob 2017-0 MD DE-FORMO 4-14 Anderso [facility] 00:00: n 00 FLUTICAS DRUG Active High Sob 2017-0 MD ONE INGREDI 4-14 [facility] 00:00: n 00 LATEX DRUG Active High Rash 2017-0 MD INGREDI 4-14 [facility] 00:00: n 00 ADHESIVE Drug Active Low Rash 2017-0 MD Class 4-14 [facility] 00:00: n 00 TIOTROPI DRUG Active High Sob 2017-0 MD UM INGREDI 4-14 Anderso [facility] 00:00: n 00 CETIRIZI DRUG Active Other 2017-0 MD NE INGREDI 4-14 [facility] 00:00: n 00 DEXLANSO DRUG Active Diarrhea 2017-0 MD PRAZOLE INGREDI 4-14 [facility] 00:00: n 00 MACROLID Drug Active Nausea 2017-0 MD E Class 4-14 [facility] 00:00: n ICS 00 FLUTICAS DRUG Active Low Anxiety 2017-0 MD ONE 4-14 Anderso [facility]- 00:00: n VILANTER 00 OL TRIAMTER DRUG Active Swelling 2017-0 MD ELENA-HYDR 4-14 [facility] [place] 00:00: n HIAZID 00 ADHESIVE Drug Active Low Rash 2017-0 MD Class 4-14 [facility] 00:00: n 00 FLUTICAS DRUG Active Low Anxiety 2017-0 MD ONE 4-14 Anderso [facility]- 00:00: n VILANTER 00 OL ZILEUTON DRUG Active Low Anxiety 2017-0 MD INGREDI 4-14 [facility] 00:00: n 00 BUDESONI DRUG Active High Sob 2017-0 MD DE-FORMO 4-14 Anderso [facility] 00:00: n 00 FLUTICAS DRUG Active High Sob 2017-0 MD ONE INGREDI 4-14 [facility] 00:00: n 00 LATEX DRUG Active High Rash 2017-0 MD INGREDI 4-14 [facility] 00:00: n 00 TIOTROPI DRUG Active High Sob 2017-0 MD UM INGREDI 4-14 Anderso [facility] 00:00: n 00 ZILEUTON DRUG Active Low Anxiety 2017-0 MD INGREDI 4-14 [facility] 00:00: n 00 CETIRIZI DRUG Active Other 2017-0 MD NE INGREDI 4-14 [facility] 00:00: n 00 DEXLANSO DRUG Active Diarrhea 2017-0 MD PRAZOLE INGREDI 4-14 [facility] 00:00: n 00 MACROLID Drug Active Nausea 2017-0 MD E Class 4-14 [facility] 00:00: n ICS 00 TRIAMTER DRUG Active Swelling 2017-0 MD ELENA-HYDR 4-14 [facility] [place] 00:00: n HIAZID 00 ADHESIVE Drug Active Low Rash 2017-0 MD Class 4-14 [facility] 00:00: n 00 FLUTICAS DRUG Active Low Anxiety 2017-0 MD ONE 4-14 Anderso [facility]- 00:00: n VILANTER 00 OL ZILEUTON DRUG Active Low Anxiety 2017-0 MD INGREDI 4-14 [facility] 00:00: n 00 BUDESONI DRUG Active High Sob 2017-0 MD DE-FORMO 4-14 Anderso [facility] 00:00: n 00 FLUTICAS DRUG Active High Sob 2017-0 MD ONE INGREDI 4-14 [facility] 00:00: n 00 LATEX DRUG Active High Rash 2017-0 MD INGREDI 4-14 [facility] 00:00: n 00 TIOTROPI DRUG Active High Sob 2017-0 MD UM INGREDI 4-14 Anderso [facility] 00:00: n 00 CETIRIZI DRUG Active Other 2017-0 MD NE INGREDI 4-14 [facility] 00:00: n 00 DEXLANSO DRUG Active Diarrhea 2017-0 MD PRAZOLE INGREDI 4-14 [facility] 00:00: n 00 MACROLID Drug Active Nausea 2017-0 MD E Class 4-14 [facility] 00:00: n ICS 00 TRIAMTER DRUG Active Swelling 2017-0 MD ELENA-HYDR 4-14 [facility] [place] 00:00: n HIAZID 00 ADHESIVE Drug Active Low Rash 2017-0 MD Class 4-14 Anderso 00:00: n 00 FLUTICAS DRUG Active Low Anxiety 2017-0 MD ONE 4-14 Anderso [facility]- 00:00: n VILANTER 00 OL BUDESONI DRUG Active High Sob 2017-0 MD DE-FORMO 4-14 Anderso [facility] 00:00: n 00 ZILEUTON DRUG Active Low Anxiety 2017-0 MD INGREDI 4-14 Anders[facility] 00:00: n 00 BUDESONI DRUG Active High Sob 2017-0 MD DE-FORMO 4-14 Anderso [facility] 00:00: n 00 FLUTICAS DRUG Active High Sob 2017-0 MD ONE INGREDI 4-14 [facility] 00:00: n 00 LATEX DRUG Active High Rash 2017-0 MD INGREDI 4-14 [facility] 00:00: n 00 FLUTICAS DRUG Active High Sob 2017-0 MD ONE INGREDI 4-14 [facility] 00:00: n 00 TIOTROPI DRUG Active High Sob 2017-0 MD UM INGREDI 4-14 Anderso [facility] 00:00: n 00 CETIRIZI DRUG Active Other 2017-0 MD NE INGREDI 4-14 [facility] 00:00: n 00 DEXLANSO DRUG Active Diarrhea 2017-0 MD PRAZOLE INGREDI 4-14 [facility] 00:00: n 00 LATEX DRUG Active High Rash 2017-0 MD INGREDI 4-14 [facility] 00:00: n 00 MACROLID Drug Active Nausea 2017-0 MD E Class 4-14 [facility] 00:00: n ICS 00 TRIAMTER DRUG Active Swelling 2017-0 MD ELENA-HYDR 4-14 [facility] [place] 00:00: n HIAZID 00 ADHESIVE Drug Active Low Rash 2017-0 MD Class 4-14 [facility] 00:00: n 00 FLUTICAS DRUG Active Low Anxiety 2017-0 MD ONE 4-14 Anderso [facility]- 00:00: n VILANTER 00 OL ZILEUTON DRUG Active Low Anxiety 2017-0 MD INGREDI 4-14 [facility] 00:00: n 00 BUDESONI DRUG Active High Sob 2017-0 MD DE-FORMO 4-14 Anderso [facility] 00:00: n 00 FLUTICAS DRUG Active High Sob 2017-0 MD ONE INGREDI 4-14 [facility] 00:00: n 00 LATEX DRUG Active High Rash 2017-0 MD INGREDI 4-14 [facility] 00:00: n 00 TIOTROPI DRUG Active High Sob 2017-0 MD UM INGREDI 4-14 Anderso [facility] 00:00: n 00 CETIRIZI DRUG Active Other 2017-0 MD NE INGREDI 4-14 [facility] 00:00: n 00 DEXLANSO DRUG Active Diarrhea 2017-0 MD PRAZOLE INGREDI 4-14 [facility] 00:00: n 00 MACROLID Drug Active Nausea 2017-0 MD E Class 4-14 [facility] 00:00: n ICS 00 TRIAMTER DRUG Active Swelling 2017-0 MD ELENA-HYDR 4-14 [facility] [place] 00:00: n HIAZID 00 ADHESIVE Drug Active Low Rash 2017-0 MD Class 4-14 [facility] 00:00: n 00 FLUTICAS DRUG Active Low Anxiety 2017-0 MD ONE 4-14 Anderso [facility]- 00:00: n VILANTER 00 OL ZILEUTON DRUG Active Low Anxiety 2017-0 MD INGREDI 4-14 [facility] 00:00: n 00 BUDESONI DRUG Active High Sob 2017-0 MD DE-FORMO 4-14 Anderso [facility] 00:00: n 00 FLUTICAS DRUG Active High Sob 2017-0 MD ONE INGREDI 4-14 [facility] 00:00: n 00 LATEX DRUG Active High Rash 2017-0 MD INGREDI 4-14 [facility] 00:00: n 00 TIOTROPI DRUG Active High Sob 2017-0 MD UM INGREDI 4-14 Anderso [facility] 00:00: n 00 TIOTROPI DRUG Active High Sob 2017-0 MD UM INGREDI 4-14 Anderso [facility] 00:00: n 00 CETIRIZI DRUG Active Other 2017-0 MD NE INGREDI 4-14 [facility] 00:00: n 00 DEXLANSO DRUG Active Diarrhea 2017-0 MD PRAZOLE INGREDI 4-14 [facility] 00:00: n 00 MACROLID Drug Active Nausea 2017-0 MD E Class 4-14 [facility] [place] 00:00: n ICS 00 TRIAMTER DRUG Active Swelling 2017-0 MD ELENA-HYDR 4-14 [facility] [place] 00:00: n HIAZID 00 ADHESIVE Drug Active Low Rash 2017-0 MD Class 4-14 [facility] 00:00: n 00 FLUTICAS DRUG Active Low Anxiety 2017-0 MD ONE 4-14 Anderso [facility]- 00:00: n VILANTER 00 OL ZILEUTON DRUG Active Low Anxiety 2017-0 MD INGREDI 4-14 [facility] 00:00: n 00 BUDESONI DRUG Active High Sob 2017-0 MD DE-FORMO 4-14 Anderso [facility] 00:00: n 00 FLUTICAS DRUG Active High Sob 2017-0 MD ONE INGREDI 4-14 [facility] 00:00: n 00 CETIRIZI DRUG Active Other 2017-0 MD NE INGREDI 4-14 [facility] 00:00: n 00 LATEX DRUG Active High Rash 2017-0 MD INGREDI 4-14 [facility] 00:00: n 00 TIOTROPI DRUG Active High Sob 2017-0 MD UM INGREDI 4-14 Anderso [facility] 00:00: n 00 CETIRIZI DRUG Active Other 2017-0 MD NE INGREDI 4-14 [facility] 00:00: n 00 DEXLANSO DRUG Active Diarrhea 2017-0 MD PRAZOLE INGREDI 4-14 [facility] 00:00: n 00 MACROLID Drug Active Nausea 2017-0 MD E Class 4-14 [facility] [place] 00:00: n ICS 00 TRIAMTER DRUG Active Swelling 2017-0 MD ELENA-HYDR 4-14 [facility] [place] 00:00: n HIAZID 00 ADHESIVE Drug Active Low Rash 2017-0 MD Class 4-14 [facility] 00:00: n 00 FLUTICAS DRUG Active Low Anxiety 2017-0 MD ONE 4-14 Anderso [facility]- 00:00: n VILANTER 00 OL DEXLANSO DRUG Active Diarrhea 2017-0 MD PRAZOLE INGREDI 4-14 [facility] 00:00: n 00 ZILEUTON DRUG Active Low Anxiety 2017-0 MD INGREDI 4-14 [facility] 00:00: n 00 BUDESONI DRUG Active High Sob 2017-0 MD DE-FORMO 4-14 Anderso [facility] 00:00: n 00 FLUTICAS DRUG Active High Sob 2017-0 MD ONE INGREDI 4-14 Anders[facility] 00:00: n 00 LATEX DRUG Active High Rash 2017-0 MD INGREDI 4-14 [facility] 00:00: n 00 TIOTROPI DRUG Active High Sob 2017-0 MD UM INGREDI 4-14 Anderso [facility] 00:00: n 00 CETIRIZI DRUG Active Other 2017-0 MD NE INGREDI 4-14 [facility] 00:00: n 00 DEXLANSO DRUG Active Diarrhea 2017-0 MD PRAZOLE INGREDI 4-14 [facility] 00:00: n 00 MACROLID Drug Active Nausea 2017-0 MD E Class 4-14 Anders[facility] 00:00: n ICS 00 MACROLID Drug Active Nausea 2017-0 MD E Class 4-14 Anderso [facility] 00:00: n ICS 00 TRIAMTER DRUG Active Swelling 2017-0 MD ELENA-HYDR 4-14 [facility] [place] 00:00: n HIAZID 00 ADHESIVE Drug Active Low Rash 2017-0 MD Class 4-14 Anderso 00:00: n 00 FLUTICAS DRUG Active Low Anxiety 2017-0 MD ONE 4-14 Anderso [facility]- 00:00: n VILANTER 00 OL ZILEUTON DRUG Active Low Anxiety 2017-0 MD INGREDI 4-14 [facility] 00:00: n 00 BUDESONI DRUG Active High Sob 2017-0 MD DE-FORMO 4-14 Anderso [facility] 00:00: n 00 FLUTICAS DRUG Active High Sob 2017-0 MD ONE INGREDI 4-14 Anders[facility] 00:00: n 00 LATEX DRUG Active High Rash 2017-0 MD INGREDI 4-14 [facility] 00:00: n 00 TIOTROPI DRUG Active High Sob 2017-0 MD UM INGREDI 4-14 Anderso [facility] 00:00: n 00 CETIRIZI DRUG Active Other 2017-0 MD NE INGREDI 4-14 [facility] 00:00: n 00 DEXLANSO DRUG Active Diarrhea 2017-0 MD PRAZOLE INGREDI 4-14 [facility] 00:00: n 00 MACROLID Drug Active Nausea 2017-0 MD E Class 4-14 [facility] 00:00: n ICS 00 TRIAMTER DRUG Active Swelling 2017-0 MD ELENA-HYDR 4-14 [facility] [place] 00:00: n HIAZID 00 ADHESIVE Drug Active Low Rash 2017-0 MD Class 4-14 [facility] 00:00: n 00 FLUTICAS DRUG Active Low Anxiety 2017-0 MD ONE 4-14 Anderso [facility]- 00:00: n VILANTER 00 OL ZILEUTON DRUG Active Low Anxiety 2017-0 MD INGREDI 4-14 [facility] 00:00: n 00 BUDESONI DRUG Active High Sob 2017-0 MD DE-FORMO 4-14 Anderso [place] 00:00: n 00 TRIAMTER DRUG Active Swelling 2017-0 MD ELENA-HYDR 4-14 [facility] [place] 00:00: n HIAZID 00 FLUTICAS DRUG Active High Sob 2017-0 MD ONE INGREDI 4-14 Anderso 00:00: n 00 LATEX DRUG Active High Rash 2017-0 MD INGREDI 4-14 [facility] 00:00: n 00 TIOTROPI DRUG Active High Sob 2017-0 MD UM INGREDI 4-14 Anderso [place] 00:00: n 00 ADHESIVE Drug Active Low Rash 2017-0 MD Class 4-14 [facility] 00:00: n 00 CETIRIZI DRUG Active Other 2017-0 MD NE INGREDI 4-14 [facility] 00:00: n 00 DEXLANSO DRUG Active Diarrhea 2017-0 MD PRAZOLE INGREDI 4-14 [facility] 00:00: n 00 MACROLID Drug Active Nausea 2017-0 MD E Class 4-14 [facility] 00:00: n ICS 00 TRIAMTER DRUG Active Swelling 2017-0 MD ELENA-HYDR 4-14 [facility] [place] 00:00: n HIAZID 00 FLUTICAS DRUG Active Low Anxiety 2017-0 MD ONE 4-14 Anderso [facility]- 00:00: n VILANTER 00 OL ADHESIVE Drug Active Low Rash 2017-0 MD Class 4-14 [facility] 00:00: n 00 FLUTICAS DRUG Active Low Anxiety 2017-0 MD ONE 4-14 Anderso [facility]- 00:00: n VILANTER 00 OL ZILEUTON DRUG Active Low Anxiety 2017-0 MD INGREDI 4-14 [facility] 00:00: n 00 BUDESONI DRUG Active High Sob 2017-0 MD DE-FORMO 4-14 Anderso [facility] 00:00: n 00 FLUTICAS DRUG Active High Sob 2017-0 MD ONE INGREDI 4-14 Anderso 00:00: n 00 LATEX DRUG Active High Rash 2017-0 MD INGREDI 4-14 Anders[facility] 00:00: n 00 TIOTROPI DRUG Active High Sob 2017-0 MD UM INGREDI 4-14 Anderso [facility] 00:00: n 00 CETIRIZI DRUG Active Other 2017-0 MD NE INGREDI 4-14 [facility] 00:00: n 00 ZILEUTON DRUG Active Low Anxiety 2017-0 MD INGREDI 4-14 Anders[facility] 00:00: n 00 DEXLANSO DRUG Active Diarrhea 2017-0 MD PRAZOLE INGREDI 4-14 Anders[facility] 00:00: n 00 MACROLID Drug Active Nausea 2017-0 MD E Class 4-14 Anderso [facility] 00:00: n ICS 00 TRIAMTER DRUG Active Swelling 2017-0 MD ELENA-HYDR 4-14 [facility] [place] 00:00: n HIAZID 00 ADHESIVE Drug Active Low Rash 2017-0 MD Class 4-14 [facility] 00:00: n 00 FLUTICAS DRUG Active Low Anxiety 2017-0 MD ONE 4-14 Anderso [facility]- 00:00: n VILANTER 00 OL ZILEUTON DRUG Active Low Anxiety 2017-0 MD INGREDI 4-14 [facility] 00:00: n 00 BUDESONI DRUG Active High Sob 2017-0 MD DE-FORMO 4-14 Anderso [facility] 00:00: n 00 FLUTICAS DRUG Active High Sob 2017-0 MD ONE INGREDI 4-14 Anderso 00:00: n 00 LATEX DRUG Active High Rash 2017-0 MD INGREDI 4-14 Anders[facility] 00:00: n 00 TIOTROPI DRUG Active High Sob 2017-0 MD UM INGREDI 4-14 Anderso [facility] 00:00: n 00 CETIRIZI DRUG Active Other 2017-0 MD NE INGREDI 4-14 [facility] 00:00: n 00 DEXLANSO DRUG Active Diarrhea 2017-0 MD PRAZOLE INGREDI 4-14 [facility] 00:00: n 00 MACROLID Drug Active Nausea 2017-0 MD E Class 4-14 Anders[facility] 00:00: n ICS 00 TRIAMTER DRUG Active Swelling 2017-0 MD ELENA-HYDR 4-14 [facility] [place] 00:00: n HIAZID 00 ADHESIVE Drug Active Low Rash 2017-0 MD Class 4-14 [facility] 00:00: n 00 FLUTICAS DRUG Active Low Anxiety 2017-0 MD ONE 4-14 Anderso [facility]- 00:00: n VILANTER 00 OL ZILEUTON DRUG Active Low Anxiety 2017-0 MD INGREDI 4-14 [facility] 00:00: n 00 BUDESONI DRUG Active High Sob 2017-0 MD DE-FORMO 4-14 Anderso [facility] 00:00: n 00 BUDESONI DRUG Active High Sob 2017-0 MD DE-FORMO 4-14 Anderso [facility] 00:00: n 00 FLUTICAS DRUG Active High Sob 2017-0 MD ONE INGREDI 4-14 Anders[facility] 00:00: n 00 LATEX DRUG Active High Rash 2017-0 MD INGREDI 4-14 Anders[facility] 00:00: n 00 FLUTICAS DRUG Active High Sob 2017-0 MD ONE INGREDI 4-14 Anders[facility] 00:00: n 00 TIOTROPI DRUG Active High Sob 2017-0 MD UM INGREDI 4-14 Anderso [place] 00:00: n 00 CETIRIZI DRUG Active Other 2017-0 MD NE INGREDI 4-14 Anders[facility] 00:00: n 00 DEXLANSO DRUG Active Diarrhea 2017-0 MD PRAZOLE INGREDI 4-14 Anders[facility] 00:00: n 00 MACROLID Drug Active Nausea 2017-0 MD E Class 4-14 Anders[facility] 00:00: n ICS 00 LATEX DRUG Active High Rash 2017-0 MD INGREDI 4-14 [facility] 00:00: n 00 TRIAMTER DRUG Active Swelling 2017-0 MD ELENA-HYDR 4-14 [facility] [place] 00:00: n HIAZID 00 ADHESIVE Drug Active Low Rash 2017-0 MD Class 4-14 [facility] 00:00: n 00 FLUTICAS DRUG Active Low Anxiety 2017-0 MD ONE 4-14 Anderso [facility]- 00:00: n VILANTER 00 OL ZILEUTON DRUG Active Low Anxiety 2017-0 MD INGREDI 4-14 [facility] 00:00: n 00 BUDESONI DRUG Active High Sob 2017-0 MD DE-FORMO 4-14 Anderso [facility] 00:00: n 00 FLUTICAS DRUG Active High Sob 2017-0 MD ONE INGREDI 4-14 Anders[facility] 00:00: n 00 LATEX DRUG Active High Rash 2017-0 MD INGREDI 4-14 Anders[facility] 00:00: n 00 TIOTROPI DRUG Active High Sob 2017-0 MD UM INGREDI 4-14 Anderso [facility] 00:00: n 00 CETIRIZI DRUG Active Other 2017-0 MD NE INGREDI 4-14 Anders[facility] 00:00: n 00 DEXLANSO DRUG Active Diarrhea 2017-0 MD PRAZOLE INGREDI 4-14 Anders[facility] 00:00: n 00 MACROLID Drug Active Nausea 2017-0 MD E Class 4-14 Anders[facility] 00:00: n ICS 00 TRIAMTER DRUG Active Swelling 2017-0 MD ELENA-HYDR 4-14 [facility] [place] 00:00: n HIAZID 00 BUDESONI DRUG Active High Sob 2017-0 MD DE-FORMO 4-14 Anderso [facility] 00:00: n 00 ADHESIVE Drug Active Low Rash 2017-0 MD Class 4-14 [facility] 00:00: n 00 FLUTICAS DRUG Active Low Anxiety 2017-0 MD ONE 4-14 Anderso [facility]- 00:00: n VILANTER 00 OL ZILEUTON DRUG Active Low Anxiety 2017-0 MD INGREDI 4-14 Anders[facility] 00:00: n 00 BUDESONI DRUG Active High Sob 2017-0 MD DE-FORMO 4-14 Anderso [facility] 00:00: n 00 FLUTICAS DRUG Active High Sob 2017-0 MD ONE INGREDI 4-14 Anderso 00:00: n 00 LATEX DRUG Active High Rash 2017-0 MD INGREDI 4-14 Anders[facility] 00:00: n 00 TIOTROPI DRUG Active High Sob 2017-0 MD UM INGREDI 4-14 Anderso [facility] 00:00: n 00 CETIRIZI DRUG Active Other 2017-0 MD NE INGREDI 4-14 Anderso 00:00: n 00 TIOTROPI DRUG Active High Sob 2017-0 MD UM INGREDI 4-14 Anderso [facility] 00:00: n 00 DEXLANSO DRUG Active Diarrhea 2017-0 MD PRAZOLE INGREDI 4-14 Anders[facility] 00:00: n 00 MACROLID Drug Active Nausea 2017-0 MD E Class 4-14 Anderso [facility] 00:00: n ICS 00 TRIAMTER DRUG Active Swelling 2017-0 MD ELENA-HYDR 4-14 [facility] [place] 00:00: n HIAZID 00 ADHESIVE Drug Active Low Rash 2017-0 MD Class 4-14 [facility] 00:00: n 00 FLUTICAS DRUG Active Low Anxiety 2017-0 MD ONE 4-14 Anderso FUR[facility]- 00:00: n VILANTER 00 OL ZILEUTON DRUG Active Low Anxiety 2017-0 MD INGREDI 4-14 Anders[facility] 00:00: n 00 BUDESONI DRUG Active High Sob 2017-0 MD DE-FORMO 4-14 Anderso [facility] 00:00: n 00 FLUTICAS DRUG Active High Sob 2017-0 MD ONE INGREDI 4-14 Anderso 00:00: n 00 LATEX DRUG Active High Rash 2017-0 MD INGREDI 4-14 Anderso 00:00: n 00 CETIRIZI DRUG Active Other 2017-0 MD NE INGREDI 4-14 Anderso 00:00: n 00 TIOTROPI DRUG Active High Sob 2017-0 MD UM INGREDI 4-14 Anderso [facility] 00:00: n 00 CETIRIZI DRUG Active Other 2017-0 MD NE INGREDI 4-14 Anders[facility] 00:00: n 00 DEXLANSO DRUG Active Diarrhea 2017-0 MD PRAZOLE INGREDI 4-14 Anderso 00:00: n 00 MACROLID Drug Active Nausea 2017-0 MD E Class 4-14 Anderso [facility] 00:00: n ICS 00 TRIAMTER DRUG Active Swelling 2017-0 MD ELENA-HYDR 4-14 [facility] [place] 00:00: n HIAZID 00 ADHESIVE Drug Active Low Rash 2017-0 MD Class 4-14 Anderso 00:00: n 00 FLUTICAS DRUG Active Low Anxiety 2017-0 MD ONE 4-14 Anderso FUROATE- 00:00: n VILANTER 00 OL ZILEUTON DRUG Active Low Anxiety 2017-0 MD INGREDI 4-14 Anderso 00:00: n 00 DEXLANSO DRUG Active Diarrhea 2017-0 MD PRAZOLE INGREDI 4-14 Anderso 00:00: n 00 BUDESONI DRUG Active High Sob 2017-0 MD DE-FORMO 4-14 Anderso [facility] 00:00: n 00 FLUTICAS DRUG Active High Sob 2017-0 MD ONE INGREDI 4-14 Anderso 00:00: n 00 LATEX DRUG Active High Rash 2017-0 MD INGREDI 4-14 Anderso 00:00: n 00 TIOTROPI DRUG Active High Sob 2017-0 MD UM INGREDI 4-14 Anderso [facility] 00:00: n 00 CETIRIZI DRUG Active Other 2017-0 MD NE INGREDI 4-14 Anderso 00:00: n 00 DEXLANSO DRUG Active Diarrhea 2017-0 MD PRAZOLE INGREDI 4-14 Anderso 00:00: n 00 MACROLID Drug Active Nausea 2017-0 MD E Class 4-14 Anderso ANT[facility]OT 00:00: n ICS 00 MACROLID Drug Active Nausea 2017-0 MD E Class 4-14 Anderso ANT[facility]IOT 00:00: n ICS 00 TRIAMTER DRUG Active Swelling 2017-0 MD ELENA-HYDR 4-14 [facility] [place] 00:00: n HIAZID 00 ADHESIVE Drug Active Low Rash 2017-0 MD Class 4-14 Anderso 00:00: n 00 FLUTICAS DRUG Active Low Anxiety 2017-0 MD ONE 4-14 Anderso FUROATE- 00:00: n VILANTER 00 OL ZILEUTON DRUG Active Low Anxiety 2017-0 MD INGREDI 4-14 Anderso 00:00: n 00 BUDESONI DRUG Active High Sob 2017-0 MD DE-FORMO 4-14 Anderso [facility] 00:00: n 00 FLUTICAS DRUG Active High Sob 2017-0 MD ONE INGREDI 4-14 Anderso 00:00: n 00 LATEX DRUG Active High Rash 2017-0 MD INGREDI 4-14 Anderso 00:00: n 00 TIOTROPI DRUG Active High Sob 2017-0 MD UM INGREDI 4-14 Anderso [facility] 00:00: n 00 FLUTICAS DRUG Active High Sob 2017-0 MD ONE INGREDI 4-14 Anderso 00:00: n 00 CETIRIZI DRUG Active Other 2017-0 MD NE INGREDI 4-14 Anderso 00:00: n 00 DEXLANSO DRUG Active Diarrhea 2017-0 MD PRAZOLE INGREDI 4-14 Anderso 00:00: n 00 MACROLID Drug Active Nausea 2017-0 MD E Class 4-14 Anderso ANT[facility]IOT 00:00: n ICS 00 TRIAMTER DRUG Active Swelling 2017-0 MD ELENA-HYDR 4-14 [facility] [place] 00:00: n HIAZID 00 ADHESIVE Drug Active Low Rash 2017-0 MD Class 4-14 Anderso 00:00: n 00 FLUTICAS DRUG Active Low Anxiety 2017-0 MD ONE 4-14 Anderso FUROATE- 00:00: n VILANTER 00 OL ZILEUTON DRUG Active Low Anxiety 2017-0 MD INGREDI 4-14 Anderso 00:00: n 00 BUDESONI DRUG Active High Sob 2017-0 MD DE-FORMO 4-14 Anderso [facility] 00:00: n 00 FLUTICAS DRUG Active High Sob 2017-0 MD ONE INGREDI 4-14 Anderso 00:00: n 00 TRIAMTER DRUG Active Swelling 2017-0 MD ELENA-HYDR 4-14 [facility] [place] 00:00: n HIAZID 00 LATEX DRUG Active High Rash 2017-0 MD INGREDI 4-14 Anderso 00:00: n 00 TIOTROPI DRUG Active High Sob 2017-0 MD UM INGREDI 4-14 Anderso [facility] 00:00: n 00 CETIRIZI DRUG Active Other 2017-0 MD NE INGREDI 4-14 Anderso 00:00: n 00 ADHESIVE Drug Active Low Rash 2017-0 MD Class 4-14 Anderso 00:00: n 00 DEXLANSO DRUG Active Diarrhea 2017-0 MD PRAZOLE INGREDI 4-14 Anderso 00:00: n 00 MACROLID Drug Active Nausea 2017-0 MD E Class 4-14 Anderso ANT[facility]IOT 00:00: n ICS 00 TRIAMTER DRUG Active Swelling 2017- MD ELENA-HYDR 4-14 [facility] [place] 00:00: n HIAZID 00 ADHESIVE Drug Active Low Rash 2017-0 MD Class 4-14 Anderso 00:00: n 00 FLUTICAS DRUG Active Low Anxiety 2017-0 MD ONE 4-14 Anderso FUROATE- 00:00: n VILANTER 00 OL FLUTICAS DRUG Active Low Anxiety 2017-0 MD ONE 4-14 Anderso FUR[facility]ATE- 00:00: n VILANTER 00 OL ZILEUTON DRUG Active Low Anxiety 2017-0 MD INGREDI 4-14 Anderso 00:00: n 00 BUDESONI DRUG Active High Sob 2017-0 MD DE-FORMO 4-14 Anderso [facility] 00:00: n 00 FLUTICAS DRUG Active High Sob 2017-0 MD ONE INGREDI 4-14 Anderso 00:00: n 00 LATEX DRUG Active High Rash 2017-0 MD INGREDI 4-14 Anderso 00:00: n 00 TIOTROPI DRUG Active High Sob 2017-0 MD UM INGREDI 4-14 Anderso [facility] 00:00: n 00 CETIRIZI DRUG Active Other 2017-0 MD NE INGREDI 4-14 Anderso 00:00: n 00 DEXLANSO DRUG Active Diarrhea 2017-0 MD PRAZOLE INGREDI 4-14 Anderso 00:00: n 00 ZILEUTON DRUG Active Low Anxiety 2017-0 MD INGREDI 4-14 Anderso 00:00: n 00 MACROLID Drug Active Nausea 2017-0 MD E Class 4-14 Anderso ANTIBIOT 00:00: n ICS 00 TRIAMTER DRUG Active Swelling 2017-0 MD ELENA-HYDR 4-14 [facility] [place] 00:00: n HIAZID 00 ADHESIVE Drug Active Low Rash 2017-0 MD Class 4-14 Anderso 00:00: n 00 FLUTICAS DRUG Active Low Anxiety 2017-0 MD ONE 4-14 Anderso FUROATE- 00:00: n VILANTER 00 OL ZILEUTON DRUG Active Low Anxiety 2017-0 MD INGREDI 4-14 Anderso 00:00: n 00 BUDESONI DRUG Active High Sob 2017-0 MD DE-FORMO 4-14 Anderso TEROL 00:00: n 00 FLUTICAS DRUG Active High Sob 2017-0 MD ONE INGREDI 4-14 Anderso 00:00: n 00 LATEX DRUG Active High Rash 2017-0 MD INGREDI 4-14 Anderso 00:00: n 00 TIOTROPI DRUG Active High Sob 2017-0 MD UM INGREDI 4-14 Anderso BROMIDE 00:00: n 00 CETIRIZI DRUG Active Other 2017-0 MD NE INGREDI 4-14 Anderso 00:00: n 00 DEXLANSO DRUG Active Diarrhea 2017-0 MD PRAZOLE INGREDI 4-14 Anderso 00:00: n 00 MACROLID Drug Active Nausea 2017-0 MD E Class 4-14 Anderso ANTIBIOT 00:00: n ICS 00 TRIAMTER DRUG Active Swelling 2017-0 MD ELENA-HYDR 4-14 Anderso [place] 00:00: n HIAZID 00 ADHESIVE Drug Active Low Rash 2017-0 MD Class 4-14 Anderso 00:00: n 00 FLUTICAS DRUG Active Low Anxiety 2017-0 MD ONE 4-14 Anderso FUROATE- 00:00: n VILANTER 00 OL ZILEUTON DRUG Active Low Anxiety 2017-0 MD INGREDI 4-14 Anderso 00:00: n 00 LATEX DRUG Active High Rash 2017-0 MD INGREDI 4-14 Anderso 00:00: n 00 BUDESONI DRUG Active High Sob 2017-0 MD DE-FORMO 4-14 Anderso TEROL 00:00: n 00 BUDESONI DRUG Active High Sob 2017-0 MD DE-FORMO 4-14 Anderso TEROL 00:00: n 00 FLUTICAS DRUG Active High Sob 2017-0 MD ONE INGREDI 4-14 Anderso 00:00: n 00 LATEX DRUG Active High Rash 2017-0 MD INGREDI 4-14 Anderso 00:00: n 00 TIOTROPI DRUG Active High Sob 2017-0 MD UM INGREDI 4-14 Anderso BROMIDE 00:00: n 00 FLUTICAS DRUG Active High Sob 2017-0 MD ONE INGREDI 4-14 Anderso 00:00: n 00 CETIRIZI DRUG Active Other 2017-0 MD NE INGREDI 4-14 Anderso 00:00: n 00 DEXLANSO DRUG Active Diarrhea 2017-0 MD PRAZOLE INGREDI 4-14 Anderso 00:00: n 00 MACROLID Drug Active Nausea 2017-0 MD E Class 4-14 Anderso ANTIBIOT 00:00: n ICS 00 LATEX DRUG Active High Rash 2017-0 MD INGREDI 4-14 Anderso 00:00: n 00 TRIAMTER DRUG Active Swelling 2017-0 MD ELENA-HYDR 4-14 Anderso [place] 00:00: n HIAZID 00 ADHESIVE Drug Active Low Rash 2017-0 MD Class 4-14 Anderso 00:00: n 00 FLUTICAS DRUG Active Low Anxiety 2017-0 MD ONE 4-14 Anderso FUROATE- 00:00: n VILANTER 00 OL ZILEUTON DRUG Active Low Anxiety 2017-0 MD INGREDI 4-14 Anderso 00:00: n 00 BUDESONI DRUG Active High Sob 2017-0 MD DE-FORMO 4-14 Anderso TEROL 00:00: n 00 FLUTICAS DRUG Active High Sob 2017-0 MD ONE INGREDI 4-14 Anderso 00:00: n 00 LATEX DRUG Active High Rash 2017-0 MD INGREDI 4-14 Anderso 00:00: n 00 TIOTROPI DRUG Active High Sob 2017-0 MD UM INGREDI 4-14 Anderso BROMIDE 00:00: n 00 CETIRIZI DRUG Active Other 2017-0 MD NE INGREDI 4-14 Anderso 00:00: n 00 DEXLANSO DRUG Active Diarrhea 2017-0 MD PRAZOLE INGREDI 4-14 Anderso 00:00: n 00 MACROLID Drug Active Nausea 2017-0 MD E Class 4-14 Anderso ANTIBIOT 00:00: n ICS 00 TRIAMTER DRUG Active Swelling 2017-0 MD ELENA-HYDR 4-14 Anderso [place] 00:00: n HIAZID 00 ADHESIVE Drug Active Low Rash 2017-0 MD Class 4-14 Anderso 00:00: n 00 FLUTICAS DRUG Active Low Anxiety 2017-0 MD ONE 4-14 Anderso FUROATE- 00:00: n VILANTER 00 OL ZILEUTON DRUG Active Low Anxiety 2017-0 MD INGREDI 4-14 Anderso 00:00: n 00 BUDESONI DRUG Active High Sob 2017-0 MD DE-FORMO 4-14 Anderso TEROL 00:00: n 00 FLUTICAS DRUG Active High Sob 2017-0 MD ONE INGREDI 4-14 Anderso 00:00: n 00 LATEX DRUG Active High Rash 2017-0 MD INGREDI 4-14 Anderso 00:00: n 00 TIOTROPI DRUG Active High Sob 2017-0 MD UM INGREDI 4-14 Anderso BROMIDE 00:00: n 00 CETIRIZI DRUG Active Other 2017-0 MD NE INGREDI 4-14 Anderso 00:00: n 00 DEXLANSO DRUG Active Diarrhea 2017-0 MD PRAZOLE INGREDI 4-14 Anderso 00:00: n 00 TIOTROPI DRUG Active High Sob 2017-0 MD UM INGREDI 4-14 Anderso BROMIDE 00:00: n 00 MACROLID Drug Active Nausea 2017-0 MD E Class 4-14 Anderso ANTIBIOT 00:00: n ICS 00 TRIAMTER DRUG Active Swelling 2017-0 MD ELENA-HYDR 4-14 Anderso [place] 00:00: n HIAZID 00 ADHESIVE Drug Active Low Rash 2017-0 MD Class 4-14 Anderso 00:00: n 00 FLUTICAS DRUG Active Low Anxiety 2017-0 MD ONE 4-14 Anderso FUROATE- 00:00: n VILANTER 00 OL ZILEUTON DRUG Active Low Anxiety 2017-0 MD INGREDI 4-14 Anderso 00:00: n 00 BUDESONI DRUG Active High Sob 2017-0 MD DE-FORMO 4-14 Anderso TEROL 00:00: n 00 FLUTICAS DRUG Active High Sob 2017-0 MD ONE INGREDI 4-14 Anderso 00:00: n 00 LATEX DRUG Active High Rash 2017-0 MD INGREDI 4-14 Anderso 00:00: n 00 CETIRIZI DRUG Active Other 2017-0 MD NE INGREDI 4-14 Anderso 00:00: n 00 TIOTROPI DRUG Active High Sob 2017-0 MD UM INGREDI 4-14 Anderso BROMIDE 00:00: n 00 CETIRIZI DRUG Active Other 2017-0 MD NE INGREDI 4-14 Anderso 00:00: n 00 DEXLANSO DRUG Active Diarrhea 2017-0 MD PRAZOLE INGREDI 4-14 Anderso 00:00: n 00 MACROLID Drug Active Nausea 2017-0 MD E Class 4-14 Anderso ANTIBIOT 00:00: n ICS 00 TRIAMTER DRUG Active Swelling 2017-0 MD ELENA-HYDR 4-14 Anderso [place] 00:00: n HIAZID 00 ADHESIVE Drug Active Low Rash 2017-0 MD Class 4-14 Anderso 00:00: n 00 FLUTICAS DRUG Active Low Anxiety 2017-0 MD ONE 4-14 Anderso FUROATE- 00:00: n VILANTER 00 OL ZILEUTON DRUG Active Low Anxiety 2017-0 MD INGREDI 4-14 Anderso 00:00: n 00 DEXLANSO DRUG Active Diarrhea 2017-0 MD PRAZOLE INGREDI 4-14 Anderso 00:00: n 00 BUDESONI DRUG Active High Sob 2017-0 MD DE-FORMO 4-14 Anderso TEROL 00:00: n 00 FLUTICAS DRUG Active High Sob 2017-0 MD ONE INGREDI 4-14 Anderso 00:00: n 00 LATEX DRUG Active High Rash 2017-0 MD INGREDI 4-14 Anderso 00:00: n 00 TIOTROPI DRUG Active High Sob 2017-0 MD UM INGREDI 4-14 Anderso BROMIDE 00:00: n 00 CETIRIZI DRUG Active Other 2017-0 MD NE INGREDI 4-14 Anderso 00:00: n 00 DEXLANSO DRUG Active Diarrhea 2017-0 MD PRAZOLE INGREDI 4-14 Anderso 00:00: n 00 MACROLID Drug Active Nausea 2017-0 MD E Class 4-14 Anderso ANTIBIOT 00:00: n ICS 00 MACROLID Drug Active Nausea 2017-0 MD E Class 4-14 Anderso ANTIBIOT 00:00: n ICS 00 TRIAMTER DRUG Active Swelling 2017-0 MD ELENA-HYDR 4-14 Anderso [place] 00:00: n HIAZID 00 ADHESIVE Drug Active Low Rash 2017-0 MD Class 4-14 Anderso 00:00: n 00 FLUTICAS DRUG Active Low Anxiety 2017-0 MD ONE 4-14 Anderso FUROATE- 00:00: n VILANTER 00 OL ZILEUTON DRUG Active Low Anxiety 2017-0 MD INGREDI 4-14 Anderso 00:00: n 00 BUDESONI DRUG Active High Sob 2017-0 MD DE-FORMO 4-14 Anderso TEROL 00:00: n 00 FLUTICAS DRUG Active High Sob 2017-0 MD ONE INGREDI 4-14 Anderso 00:00: n 00 LATEX DRUG Active High Rash 2017-0 MD INGREDI 4-14 Anderso 00:00: n 00 TIOTROPI DRUG Active High Sob 2017-0 MD UM INGREDI 4-14 Anderso BROMIDE 00:00: n 00 CETIRIZI DRUG Active Other 2017-0 MD NE INGREDI 4-14 Anderso 00:00: n 00 DEXLANSO DRUG Active Diarrhea 2017-0 MD PRAZOLE INGREDI 4-14 Anderso 00:00: n 00 MACROLID Drug Active Nausea 2017-0 MD E Class 4-14 Anderso ANTIBIOT 00:00: n ICS 00 TRIAMTER DRUG Active Swelling 2017-0 MD ELENA-HYDR 4-14 Anderso [place] 00:00: n HIAZID 00 ADHESIVE Drug Active Low Rash 2017-0 MD Class 4-14 Anderso 00:00: n 00 FLUTICAS DRUG Active Low Anxiety 2017-0 MD ONE 4-14 Anderso FUROATE- 00:00: n VILANTER 00 OL ZILEUTON DRUG Active Low Anxiety 2017-0 MD INGREDI 4-14 Anderso 00:00: n 00 BUDESONI DRUG Active High Sob 2017-0 MD DE-FORMO 4-14 Anderso TEROL 00:00: n 00 FLUTICAS DRUG Active High Sob 2017-0 MD ONE INGREDI 4-14 Anderso 00:00: n 00 LATEX DRUG Active High Rash 2017-0 MD INGREDI 4-14 Anderso 00:00: n 00 TRIAMTER DRUG Active Swelling 2017-0 MD ELENA-HYDR 4-14 Anderso [place] 00:00: n HIAZID 00 TIOTROPI DRUG Active High Sob 2017-0 MD UM INGREDI 4-14 Anderso BROMIDE 00:00: n 00 CETIRIZI DRUG Active Other 2017-0 MD NE INGREDI 4-14 Anderso 00:00: n 00 DEXLANSO DRUG Active Diarrhea 2017-0 MD PRAZOLE INGREDI 4-14 Anderso 00:00: n 00 ADHESIVE Drug Active Low Rash 2017-0 MD Class 4-14 Anderso 00:00: n 00 MACROLID Drug Active Nausea 2017-0 MD E Class 4-14 Anderso ANTIBIOT 00:00: n ICS 00 TRIAMTER DRUG Active Swelling 2017-0 MD ELENA-HYDR 4-14 Anderso [place] 00:00: n HIAZID 00 ADHESIVE Drug Active Low Rash 2017-0 MD Class 4-14 Anderso 00:00: n 00 FLUTICAS DRUG Active Low Anxiety 2017-0 MD ONE 4-14 Anderso FUROATE- 00:00: n VILANTER 00 OL FLUTICAS DRUG Active Low Anxiety 2017-0 MD ONE 4-14 Anderso FUROATE- 00:00: n VILANTER 00 OL ZILEUTON DRUG Active Low Anxiety 2017-0 MD INGREDI 4-14 Anderso 00:00: n 00 BUDESONI DRUG Active High Sob 2017-0 MD DE-FORMO 4-14 Anderso TEROL 00:00: n 00 FLUTICAS DRUG Active High Sob 2017-0 MD ONE INGREDI 4-14 Anderso 00:00: n 00 LATEX DRUG Active High Rash 2017-0 MD INGREDI 4-14 Anderso 00:00: n 00 TIOTROPI DRUG Active High Sob 2017-0 MD UM INGREDI 4-14 Anderso BROMIDE 00:00: n 00 CETIRIZI DRUG Active Other 2017-0 MD NE INGREDI 4-14 Anderso 00:00: n 00 DEXLANSO DRUG Active Diarrhea 2017-0 MD PRAZOLE INGREDI 4-14 Anderso 00:00: n 00 MACROLID Drug Active Nausea 2017-0 MD E Class 4-14 Anderso ANTIBIOT 00:00: n ICS 00 ZILEUTON DRUG Active Low Anxiety 2017-0 MD INGREDI 4-14 Anderso 00:00: n 00 TRIAMTER DRUG Active Swelling 2017-0 MD ELENA-HYDR 4-14 Anderso [place] 00:00: n HIAZID 00 ADHESIVE Drug Active Low Rash 2017-0 MD Class 4-14 Anderso 00:00: n 00 FLUTICAS DRUG Active Low Anxiety 2017-0 MD ONE 4-14 Anderso FUROATE- 00:00: n VILANTER 00 OL ZILEUTON DRUG Active Low Anxiety 2017-0 MD INGREDI 4-14 Anderso 00:00: n 00 BUDESONI DRUG Active High Sob 2017-0 MD DE-FORMO 4-14 Anderso TEROL 00:00: n 00 FLUTICAS DRUG Active High Sob 2017-0 MD ONE INGREDI 4-14 Anderso 00:00: n 00 LATEX DRUG Active High Rash 2017-0 MD INGREDI 4-14 Anderso 00:00: n 00 TIOTROPI DRUG Active High Sob 2017-0 MD UM INGREDI 4-14 Anderso BROMIDE 00:00: n 00 CETIRIZI DRUG Active Other 2017-0 MD NE INGREDI 4-14 Anderso 00:00: n 00 DEXLANSO DRUG Active Diarrhea 2017-0 MD PRAZOLE INGREDI 4-14 Anderso 00:00: n 00 MACROLID Drug Active Nausea 2017-0 MD E Class 4-14 Anderso ANTIBIOT 00:00: n ICS 00 TRIAMTER DRUG Active Swelling 2017-0 MD ELENA-HYDR 4-14 Anderso [place] 00:00: n HIAZID 00 ADHESIVE Drug Active Low Rash 2017-0 MD Class 4-14 Anderso 00:00: n 00 FLUTICAS DRUG Active Low Anxiety 2017-0 MD ONE 4-14 Anderso FUROATE- 00:00: n VILANTER 00 OL ZILEUTON DRUG Active Low Anxiety 2017-0 MD INGREDI 4-14 Anderso 00:00: n 00 BUDESONI DRUG Active High Sob 2017-0 MD DE-FORMO 4-14 Anderso TEROL 00:00: n 00 BUDESONI DRUG Active High Sob 2017-0 MD DE-FORMO 4-14 Anderso TEROL 00:00: n 00 FLUTICAS DRUG Active High Sob 2017-0 MD ONE INGREDI 4-14 Anderso 00:00: n 00 LATEX DRUG Active High Rash 2017-0 MD INGREDI 4-14 Anderso 00:00: n 00 TIOTROPI DRUG Active High Sob 2017-0 MD UM INGREDI 4-14 Anderso BROMIDE 00:00: n 00 FLUTICAS DRUG Active High Sob 2017-0 MD ONE INGREDI 4-14 Anderso 00:00: n 00 CETIRIZI DRUG Active Other 2017-0 MD NE INGREDI 4-14 Anderso 00:00: n 00 DEXLANSO DRUG Active Diarrhea 2017-0 MD PRAZOLE INGREDI 4-14 Anderso 00:00: n 00 MACROLID Drug Active Nausea 2017-0 MD E Class 4-14 Anderso ANTIBIOT 00:00: n ICS 00 LATEX DRUG Active High Rash 2017-0 MD INGREDI 4-14 Anderso 00:00: n 00 TRIAMTER DRUG Active Swelling 2017-0 MD ELENA-HYDR 4-14 Anderso [place] 00:00: n HIAZID 00 ADHESIVE Drug Active Low Rash 2017-0 MD Class 4-14 Anderso 00:00: n 00 FLUTICAS DRUG Active Low Anxiety 2017-0 MD ONE 4-14 Anderso FUROATE- 00:00: n VILANTER 00 OL ZILEUTON DRUG Active Low Anxiety 2017-0 MD INGREDI 4-14 Anderso 00:00: n 00 BUDESONI DRUG Active High Sob 2017-0 MD DE-FORMO 4-14 Anderso TEROL 00:00: n 00 FLUTICAS DRUG Active High Sob 2017-0 MD ONE INGREDI 4-14 Anderso 00:00: n 00 LATEX DRUG Active High Rash 2017-0 MD INGREDI 4-14 Anderso 00:00: n 00 TIOTROPI DRUG Active High Sob 2017-0 MD UM INGREDI 4-14 Anderso BROMIDE 00:00: n 00 CETIRIZI DRUG Active Other 2017-0 MD NE INGREDI 4-14 Anderso 00:00: n 00 DEXLANSO DRUG Active Diarrhea 2017-0 MD PRAZOLE INGREDI 4-14 Anderso 00:00: n 00 MACROLID Drug Active Nausea 2017-0 MD E Class 4-14 Anderso ANTIBIOT 00:00: n ICS 00 TRIAMTER DRUG Active Swelling 2017-0 MD ELENA-HYDR 4-14 Anderso [place] 00:00: n HIAZID 00 ADHESIVE Drug Active Low Rash 2017-0 MD Class 4-14 Anderso 00:00: n 00 FLUTICAS DRUG Active Low Anxiety 2017-0 MD ONE 4-14 Anderso FUROATE- 00:00: n VILANTER 00 OL ZILEUTON DRUG Active Low Anxiety 2017-0 MD INGREDI 4-14 Anderso 00:00: n 00 BUDESONI DRUG Active High Sob 2017-0 MD DE-FORMO 4-14 Anderso TEROL 00:00: n 00 FLUTICAS DRUG Active High Sob 2017-0 MD ONE INGREDI 4-14 Anderso 00:00: n 00 LATEX DRUG Active High Rash 2017- MD INGREDI 4-14 Anderso 00:00: n 00 TIOTROPI DRUG Active High Sob 2017-0 MD UM INGREDI 4-14 Anderso BROMIDE 00:00: n 00 CETIRIZI DRUG Active Other 2017- MD NE INGREDI 4-14 Anderso 00:00: n 00 ADHESIVE Drug Active Rash 2017- Univers Class 4-14 ity of 00:00: [place] [address] [place] [address] TIOTROPI DRUG Active High Sob 2017-0 MD UM INGREDI 4-14 Anderso BROMIDE 00:00: n 00 DEXLANSO DRUG Active Diarrhea 2017-0 MD PRAZOLE INGREDI 4-14 Anderso 00:00: n 00 MACROLID Drug Active Nausea 2017-0 MD E Class 4-14 Anderso ANTIBIOT 00:00: n ICS 00 TRIAMTER DRUG Active Swelling 2017-0 MD ELENA-HYDR 4-14 Anderso [place] 00:00: n HIAZID 00 ADHESIVE Drug Active Low Rash 2017-0 MD Class 4-14 Anderso 00:00: n 00 FLUTICAS DRUG Active Low Anxiety 2017-0 MD ONE 4-14 Anderso FUROATE- 00:00: n VILANTER 00 OL ZILEUTON DRUG Active Low Anxiety 2017-0 MD INGREDI 4-14 Anderso 00:00: n 00 BUDESONI DRUG Active High Sob 2017-0 MD DE-FORMO 4-14 Anderso TEROL 00:00: n 00 FLUTICAS DRUG Active High Sob 2017-0 MD ONE INGREDI 4-14 Anderso 00:00: n 00 LATEX DRUG Active High Rash 2017-0 MD INGREDI 4-14 Anderso 00:00: n 00 CETIRIZI DRUG Active Other 2017-0 MD NE INGREDI 4-14 Anderso 00:00: n 00 TIOTROPI DRUG Active High Sob 2017-0 MD UM INGREDI 4-14 Anderso BROMIDE 00:00: n 00 CETIRIZI DRUG Active Other 2017- MD NE INGREDI 4-14 Anderso 00:00: n 00 DEXLANSO DRUG Active Diarrhea 2017-0 MD PRAZOLE INGREDI 4-14 Anderso 00:00: n 00 MACROLID Drug Active Nausea 2017-0 MD E Class 4-14 Anderso ANTIBIOT 00:00: n ICS 00 TRIAMTER DRUG Active Swelling 2017- MD ELENA-HYDR 4-14 Anderso [place] 00:00: n HIAZID 00 ADHESIVE Drug Active Low Rash 2017- MD Class 4-14 Anderso 00:00: n 00 FLUTICAS DRUG Active Low Anxiety 2017-0 MD ONE 4-14 Anderso FUROATE- 00:00: n VILANTER 00 OL DEXLANSO DRUG Active Diarrhea 2017- MD PRAZOLE INGREDI 4-14 Anderso 00:00: n 00 ZILEUTON DRUG Active Low Anxiety 2017-0 MD INGREDI 4-14 Anderso 00:00: n 00 FLUTICAS DRUG Active SOB 2017-0 Univers ONE 4-14 ity of PROPION- 00:00: [place] [address] OL Branch BUDESONI DRUG Active High Sob 2017-0 MD DE-FORMO 4-14 Anderso TEROL 00:00: n 00 FLUTICAS DRUG Active High Sob 2017-0 MD ONE INGREDI 4-14 Anderso 00:00: n 00 LATEX DRUG Active High Rash 2017- MD INGREDI 4-14 Anderso 00:00: n 00 TIOTROPI DRUG Active High Sob 2017-0 MD UM INGREDI 4-14 Anderso BROMIDE 00:00: n 00 CETIRIZI DRUG Active Other 2017-0 MD NE INGREDI 4-14 Anderso 00:00: n 00 DEXLANSO DRUG Active Diarrhea 2017-0 MD PRAZOLE INGREDI 4-14 Anderso 00:00: n 00 MACROLID Drug Active Nausea 2017-0 MD E Class 4-14 Anderso ANTIBIOT 00:00: n ICS 00 MACROLID Drug Active Nausea 2017-0 MD E Class 4-14 Anderso ANTIBIOT 00:00: n ICS 00 TRIAMTER DRUG Active Swelling 2017-0 MD ELENA-HYDR 4-14 Anderso [place] 00:00: n HIAZID 00 ADHESIVE Drug Active Low Rash 2017-0 MD Class 4-14 Anderso 00:00: n 00 FLUTICAS DRUG Active Low Anxiety 2017-0 MD ONE 4-14 Anderso FUROATE- 00:00: n VILANTER 00 OL ZILEUTON DRUG Active Low Anxiety 2017-0 MD INGREDI 4-14 Anderso 00:00: n 00 BUDESONI DRUG Active High Sob 2017-0 MD DE-FORMO 4-14 Anderso TEROL 00:00: n 00 FLUTICAS DRUG Active High Sob 2017-0 MD ONE INGREDI 4-14 Anderso 00:00: n 00 LATEX DRUG Active High Rash 2017-0 MD INGREDI 4-14 Anderso 00:00: n 00 TIOTROPI DRUG Active High Sob 2017-0 MD UM INGREDI 4-14 Anderso BROMIDE 00:00: n 00 CETIRIZI DRUG Active Other 2017-0 MD NE INGREDI 4-14 Anderso 00:00: n 00 DEXLANSO DRUG Active Diarrhea 2017-0 MD PRAZOLE INGREDI 4-14 Anderso 00:00: n 00 MACROLID Drug Active Nausea 2017-0 MD E Class 4-14 Anderso ANTIBIOT 00:00: n ICS 00 TRIAMTER DRUG Active Swelling 2017-0 MD ELENA-HYDR 4-14 Anderso [place] 00:00: n HIAZID 00 BANANA DRUG Active Other-Cmnt 2017-0 Univer s INGREDI 4-14 ity of 00:00: [place] [address] [place] [address] Branch ADHESIVE Drug Active Low Rash 2017-0 MD Class 4-14 Anderso 00:00: n 00 FLUTICAS DRUG Active Low Anxiety 2017-0 MD ONE 4-14 Anderso FUROATE- 00:00: n VILANTER 00 OL ZILEUTON DRUG Active Low Anxiety 2017-0 MD INGREDI 4-14 Anderso 00:00: n 00 TRIAMTER DRUG Active Swelling 2017-0 MD ELENA-HYDR 4-14 Anderso [place] 00:00: n HIAZID 00 BUDESONI DRUG Active High Sob 2017-0 MD DE-FORMO 4-14 Anderso TEROL 00:00: n 00 FLUTICAS DRUG Active High Sob 2017-0 MD ONE INGREDI 4-14 Anderso 00:00: n 00 LATEX DRUG Active High Rash 2017-0 MD INGREDI 4-14 Anderso 00:00: n 00 TIOTROPI DRUG Active High Sob 2017-0 MD UM INGREDI 4-14 Anderso BROMIDE 00:00: n 00 ADHESIVE Drug Active Low Rash 2017-0 MD Class 4-14 Anderso 00:00: n 00 CETIRIZI DRUG Active Other 2017- MD NE INGREDI 4-14 Anderso 00:00: n 00 FLUTICAS DRUG Active Anxiety 2017- Univers ONE 4-14 ity of FUROATE- 00:00: [place] VILANTER 00 Medical OL Branch DEXLANSO DRUG Active Diarrhea 2017- MD PRAZOLE INGREDI 4-14 Anderso 00:00: n 00 MACROLID Drug Active Nausea 2017-0 MD E Class 4-14 Anderso ANTIBIOT 00:00: n ICS 00 FLUTICAS DRUG Active Low Anxiety 2017- MD ONE 4-14 Anderso FUROATE- 00:00: n VILANTER 00 OL TRIAMTER DRUG Active Swelling 2017- MD ELENA-HYDR 4-14 Anderso [place] 00:00: n HIAZID 00 ADHESIVE Drug Active Low Rash 2017- MD Class 4-14 Anderso 00:00: n 00 FLUTICAS DRUG Active Low Anxiety 2017-0 MD ONE 4-14 Anderso FUROATE- 00:00: n VILANTER 00 OL ZILEUTON DRUG Active Low Anxiety 2017-0 MD INGREDI 4-14 Anderso 00:00: n 00 BUDESONI DRUG Active High Sob 2017-0 MD DE-FORMO 4-14 Anderso TEROL 00:00: n 00 FLUTICAS DRUG Active High Sob 2017-0 MD ONE INGREDI 4-14 Anderso 00:00: n 00 LATEX DRUG Active High Rash 2017-0 MD INGREDI 4-14 Anderso 00:00: n 00 TIOTROPI DRUG Active High Sob 2017-0 MD UM INGREDI 4-14 Anderso BROMIDE 00:00: n 00 ZILEUTON DRUG Active Low Anxiety 2017-0 MD INGREDI 4-14 Anderso 00:00: n 00 CETIRIZI DRUG Active Other 2017-0 MD NE INGREDI 4-14 Anderso 00:00: n 00 DEXLANSO DRUG Active Diarrhea 2017-0 MD PRAZOLE INGREDI 4-14 Anderso 00:00: n 00 MACROLID Drug Active Nausea 2017-0 MD E Class 4-14 Anderso ANTIBIOT 00:00: n ICS 00 TRIAMTER DRUG Active Swelling 2017-0 MD ELENA-HYDR 4-14 Anderso [place] 00:00: n HIAZID 00 ADHESIVE Drug Active Low Rash 2017- MD Class 4-14 Anderso 00:00: n 00 FLUTICAS DRUG Active Low Anxiety 2017- MD ONE 4-14 Anderso FUROATE- 00:00: n VILANTER 00 OL ZILEUTON DRUG Active Low Anxiety 2017- MD INGREDI 4-14 Anderso 00:00: n 00 BUDESONI DRUG Active High Sob 2017- MD DE-FORMO 4-14 Anderso TEROL 00:00: n 00 CETIRIZI DRUG Active Other-Cmnt Univ ers NE INGREDI 4-14 ity of 00:00: [place] [address] [place] [address] FLUTICAS DRUG Active High Sob 2017- MD ONE INGREDI 4-14 Anderso 00:00: n 00 LATEX DRUG Active High Rash 2017- MD INGREDI 4-14 Anderso 00:00: n 00 TIOTROPI DRUG Active High Sob 2017-0 MD UM INGREDI 4-14 Anderso BROMIDE 00:00: n 00 CETIRIZI DRUG Active Other 2017-0 MD NE INGREDI 4-14 Anderso 00:00: n 00 BUDESONI DRUG Active High Sob 2017-0 MD DE-FORMO 4-14 Anderso TEROL 00:00: n 00 DEXLANSO DRUG Active Diarrhea 2017-0 MD PRAZOLE INGREDI 4-14 Anderso 00:00: n 00 MACROLID Drug Active Nausea 2017-0 MD E Class 4-14 Anderso ANTIBIOT 00:00: n ICS 00 TRIAMTER DRUG Active Swelling 2017-0 MD ELENA-HYDR 4-14 Anderso [place] 00:00: n HIAZID 00 TIOTROPI DRUG Active High Sob 2017-0 MD UM INGREDI 4-14 Anderso BROMIDE 00:00: n 00 FLUTICAS DRUG Active High Sob 2017-0 MD ONE INGREDI 4-14 Anderso 00:00: n 00 DEXLANSO DRUG Active Diarrhea 2017 Univer s PRAZOLE INGREDI 4-14 ity of 00:00: [place] 00 [facility] ADHESIVE Drug Active Low Rash 2017-0 MD Class 4-14 Anderso 00:00: n 00 FLUTICAS DRUG Active Low Anxiety 2017-0 MD ONE 4-14 Anderso FUROATE- 00:00: n VILANTER 00 OL ZILEUTON DRUG Active Low Anxiety 2017-0 MD INGREDI 4-14 Anderso 00:00: n 00 BUDESONI DRUG Active High Sob 2017-0 MD DE-FORMO 4-14 Anderso TEROL 00:00: n 00 FLUTICAS DRUG Active High Sob 2017-0 MD ONE INGREDI 4-14 Anderso 00:00: n 00 LATEX DRUG Active High Rash 2017-0 MD INGREDI 4-14 Anderso 00:00: n 00 LATEX DRUG Active High Rash 2017-0 MD INGREDI 4-14 Anderso 00:00: n 00 TIOTROPI DRUG Active High Sob 2017-0 MD UM INGREDI 4-14 Anderso BROMIDE 00:00: n 00 CETIRIZI DRUG Active Other 2017-0 MD NE INGREDI 4-14 Anderso 00:00: n 00 DEXLANSO DRUG Active Diarrhea 2017-0 MD PRAZOLE INGREDI 4-14 Anderso 00:00: n 00 MACROLID Drug Active Nausea 2017-0 MD E Class 4-14 Anderso ANTIBIOT 00:00: n ICS 00 TRIAMTER DRUG Active Swelling 2017-0 MD ELENA-HYDR 4-14 Anderso [place] 00:00: n HIAZID 00 ADHESIVE Drug Active Low Rash 2017-0 MD Class 4-14 Anderso 00:00: n 00 FLUTICAS DRUG Active Low Anxiety 2017-0 MD ONE 4-14 Anderso FUROATE- 00:00: n VILANTER 00 OL ZILEUTON DRUG Active Low Anxiety 2017-0 MD INGREDI 4-14 Anderso 00:00: n 00 TIOTROPI DRUG Active High Sob 2017-0 MD UM INGREDI 4-14 Anderso BROMIDE 00:00: n 00 CETIRIZI DRUG Active Other 2017-0 MD NE INGREDI 4-14 Anderso 00:00: n 00 DEXLANSO DRUG Active Diarrhea 2017-0 MD PRAZOLE INGREDI 4-14 Anderso 00:00: n 00 MACROLID Drug Active Nausea 2017-0 MD E Class 4-14 Anderso ANTIBIOT 00:00: n ICS 00 TRIAMTER DRUG Active Swelling 2017-0 MD ELENA-HYDR 4-14 Anderso [place] 00:00: n HIAZID 00 FLUTICAS DRUG Active SOB 2017-0 Univers ONE INGREDI 4-14 ity of PROPIONA 00:00: [place] TE 00 Medical Branch ADHESIVE Drug Active Low Rash 2017-0 MD Class 4-14 Anderso 00:00: n 00 FLUTICAS DRUG Active Low Anxiety 2017-0 MD ONE 4-14 Anderso FUROATE- 00:00: n VILANTER 00 OL CETIRIZI DRUG Active Other 2017-0 MD NE INGREDI 4-14 Anderso 00:00: n 00 ZILEUTON DRUG Active Low Anxiety 2017-0 MD INGREDI 4-14 Anderso 00:00: n 00 BUDESONI DRUG Active High Sob 2017-0 MD DE-FORMO 4-14 Anderso TEROL 00:00: n 00 FLUTICAS DRUG Active High Sob 2017-0 MD ONE INGREDI 4-14 Anderso 00:00: n 00 LATEX DRUG Active High Rash 2017-0 MD INGREDI 4-14 Anderso 00:00: n 00 TIOTROPI DRUG Active High Sob 2017-0 MD UM INGREDI 4-14 Anderso BROMIDE 00:00: n 00 CETIRIZI DRUG Active Other 2017-0 MD NE INGREDI 4-14 Anderso 00:00: n 00 DEXLANSO DRUG Active Diarrhea 2017-0 MD PRAZOLE INGREDI 4-14 Anderso 00:00: n 00 MACROLID Drug Active Nausea 2017-0 MD E Class 4-14 Anderso ANTIBIOT 00:00: n ICS 00 DEXLANSO DRUG Active Diarrhea 2017-0 MD PRAZOLE INGREDI 4-14 Anderso 00:00: n 00 TRIAMTER DRUG Active Swelling 2017-0 MD ELENA-HYDR 4-14 Anderso [place] 00:00: n HIAZID 00 ADHESIVE Drug Active Low Rash 2017-0 MD Class 4-14 Anderso 00:00: n 00 FLUTICAS DRUG Active Low Anxiety 2017-0 MD ONE 4-14 Anderso FUROATE- 00:00: n VILANTER 00 OL ZILEUTON DRUG Active Low Anxiety 2017-0 MD INGREDI 4-14 Anderso 00:00: n 00 BUDESONI DRUG Active High Sob 2017-0 MD DE-FORMO 4-14 Anderso TEROL 00:00: n 00 FLUTICAS DRUG Active High Sob 2017-0 MD ONE INGREDI 4-14 Anderso 00:00: n 00 LATEX DRUG Active High Rash 2017-0 MD INGREDI 4-14 Anderso 00:00: n 00 TIOTROPI DRUG Active High Sob 2017-0 MD UM INGREDI 4-14 Anderso BROMIDE 00:00: n 00 LATEX DRUG Active Rash 2017-0 Univers INGREDI 4-14 ity of 00:00: [place] 00 [facility] Branch CETIRIZI DRUG Active Other 2017-0 MD NE INGREDI 4-14 Anderso 00:00: n 00 DEXLANSO DRUG Active Diarrhea 2017-0 MD PRAZOLE INGREDI 4-14 Anderso 00:00: n 00 MACROLID Drug Active Nausea 2017-0 MD E Class 4-14 Anderso ANTIBIOT 00:00: n ICS 00 MACROLID Drug Active Nausea 2017-0 MD E Class 4-14 Anderso ANTIBIOT 00:00: n ICS 00 TRIAMTER DRUG Active Swelling 2017-0 MD ELENA-HYDR 4-14 Anderso [place] 00:00: n HIAZID 00 ADHESIVE Drug Active Low Rash 2017-0 MD Class 4-14 Anderso 00:00: n 00 FLUTICAS DRUG Active Low Anxiety 2017-0 MD ONE 4-14 Anderso FUROATE- 00:00: n VILANTER 00 OL ZILEUTON DRUG Active Low Anxiety 2017-0 MD INGREDI 4-14 Anderso 00:00: n 00 BUDESONI DRUG Active High Sob 2017-0 MD DE-FORMO 4-14 Anderso TEROL 00:00: n 00 FLUTICAS DRUG Active High Sob 2017-0 MD ONE INGREDI 4-14 Anderso 00:00: n 00 MACROLID Drug Active N/V 2017-0 Univers E Class 4-14 ity of ANTIBIOT 00:00: [place] ICS 00 Medical Branch LATEX DRUG Active High Rash 2017-0 MD INGREDI 4-14 Anderso 00:00: n 00 TIOTROPI DRUG Active High Sob 2017-0 MD UM INGREDI 4-14 Anderso BROMIDE 00:00: n 00 CETIRIZI DRUG Active Other 2017-0 MD NE INGREDI 4-14 Anderso 00:00: n 00 DEXLANSO DRUG Active Diarrhea 2017-0 MD PRAZOLE INGREDI 4-14 Anderso 00:00: n 00 MACROLID Drug Active Nausea 2017-0 MD E Class 4-14 Anderso ANTIBIOT 00:00: n ICS 00 TRIAMTER DRUG Active Swelling 2017-0 MD ELENA-HYDR 4-14 Anderso [place] 00:00: n HIAZID 00 ADHESIVE Drug Active Low Rash 2017-0 MD Class 4-14 Anderso 00:00: n 00 FLUTICAS DRUG Active Low Anxiety 2017-0 MD ONE 4-14 Anderso FUROATE- 00:00: n VILANTER 00 OL ZILEUTON DRUG Active Low Anxiety 2017-0 MD INGREDI 4-14 Anderso 00:00: n 00 BUDESONI DRUG Active High Sob 2017-0 MD DE-FORMO 4-14 Anderso TEROL 00:00: n 00 FLUTICAS DRUG Active High Sob 2017-0 MD ONE INGREDI 4-14 Anderso 00:00: n 00 LATEX DRUG Active High Rash 2017-0 MD INGREDI 4-14 Anderso 00:00: n 00 TRIAMTER DRUG Active Swelling 2017-0 MD ELENA-HYDR 4-14 Anderso [place] 00:00: n HIAZID 00 TIOTROPI DRUG Active High Sob 2017-0 MD UM INGREDI 4-14 Anderso BROMIDE 00:00: n 00 CETIRIZI DRUG Active Other 2017-0 MD NE INGREDI 4-14 Anderso 00:00: n 00 DEXLANSO DRUG Active Diarrhea 2017-0 MD PRAZOLE INGREDI 4-14 Anderso 00:00: n 00 MACROLID Drug Active Nausea 2017-0 MD E Class 4-14 Anderso ANTIBIOT 00:00: n ICS 00 ADHESIVE Drug Active Low Rash 2017-0 MD Class 4-14 Anderso 00:00: n 00 TRIAMTER DRUG Active Swelling 2017-0 MD ELENA-HYDR 4-14 Anderso [place] 00:00: n HIAZID 00 ADHESIVE Drug Active Low Rash 2017-0 MD Class 4-14 Anderso 00:00: n 00 BECLOMET DRUG Active SOB 2017-0 [facility] INGREDI 4-14 [facility] of [facility] 00:00: [place] [address] FLUTICAS DRUG Active Low Anxiety 2017-0 MD ONE 4-14 Anderso FUROATE- 00:00: n VILANTER 00 OL ZILEUTON DRUG Active Low Anxiety 2017-0 MD INGREDI 4-14 Anderso 00:00: n 00 FLUTICAS DRUG Active Low Anxiety 2017-0 MD ONE 4-14 Anderso FUROATE- 00:00: n VILANTER 00 OL BUDESONI DRUG Active High Sob 2017-0 MD DE-FORMO 4-14 Anderso TEROL 00:00: n 00 FLUTICAS DRUG Active High Sob 2017-0 MD ONE INGREDI 4-14 Anderso 00:00: n 00 LATEX DRUG Active High Rash 2017-0 MD INGREDI 4-14 Anderso 00:00: n 00 TIOTROPI DRUG Active High Sob 2017-0 MD UM INGREDI 4-14 Anderso BROMIDE 00:00: n 00 CETIRIZI DRUG Active Other 2017-0 MD NE INGREDI 4-14 Anderso 00:00: n 00 DEXLANSO DRUG Active Diarrhea 2017-0 MD PRAZOLE INGREDI 4-14 Anderso 00:00: n 00 MACROLID Drug Active Nausea 2017-0 MD E Class 4-14 Anderso ANTIBIOT 00:00: n ICS 00 TRIAMTER DRUG Active Swelling 2017-0 MD ELENA-HYDR 4-14 Anderso [place] 00:00: n HIAZID 00 ADHESIVE Drug Active Low Rash 2017-0 MD Class 4-14 Anderso 00:00: n 00 FLUTICAS DRUG Active Low Anxiety 2017-0 MD ONE 4-14 Anderso FUROATE- 00:00: n VILANTER 00 OL ZILEUTON DRUG Active Low Anxiety 2017-0 MD INGREDI 4-14 Anderso 00:00: n 00 ZILEUTON DRUG Active Low Anxiety 2017-0 MD INGREDI 4-14 Anderso 00:00: n 00 BUDESONI DRUG Active High Sob 2017-0 MD DE-FORMO 4-14 Anderso TEROL 00:00: n 00 FLUTICAS DRUG Active High Sob 2017-0 MD ONE INGREDI 4-14 Anderso 00:00: n 00 LATEX DRUG Active High Rash 2017-0 MD INGREDI 4-14 Anderso 00:00: n 00 TIOTROPI DRUG Active High Sob 2017-0 MD UM INGREDI 4-14 Anderso BROMIDE 00:00: n 00 CETIRIZI DRUG Active Other 2017-0 MD NE INGREDI 4-14 Anderso 00:00: n 00 TIOTROPI DRUG Active SOB 2017-0 Univers UM INGREDI 4-14 ity of BROMIDE 00:00: [place] [address] [place] [address] DEXLANSO DRUG Active Diarrhea 2017-0 MD PRAZOLE INGREDI 4-14 Anderso 00:00: n 00 MACROLID Drug Active Nausea 2017-0 MD E Class 4-14 Anderso ANTIBIOT 00:00: n ICS 00 TRIAMTER DRUG Active Swelling 2017-0 MD ELENA-HYDR 4-14 Anderso [place] 00:00: n HIAZID 00 ADHESIVE Drug Active Low Rash 2017-0 MD Class 4-14 Anderso 00:00: n 00 FLUTICAS DRUG Active Low Anxiety 2017-0 MD ONE 4-14 Anderso FUROATE- 00:00: n VILANTER 00 OL ZILEUTON DRUG Active Low Anxiety 2017-0 MD INGREDI 4-14 Anderso 00:00: n 00 BUDESONI DRUG Active High Sob 2017-0 MD DE-FORMO 4-14 Anderso TEROL 00:00: n 00 FLUTICAS DRUG Active High Sob 2017-0 MD ONE INGREDI 4-14 Anderso 00:00: n 00 BUDESONI DRUG Active High Sob 2017-0 MD DE-FORMO 4-14 Anderso TEROL 00:00: n 00 LATEX DRUG Active High Rash 2017-0 MD INGREDI 4-14 Anderso 00:00: n 00 BUDESONI DRUG Active SOB 2017-0 Univers DE-FORMO 4-14 ity of TEROL 00:00: [address] TIOTROPI DRUG Active High Sob 2017-0 MD UM INGREDI 4-14 Anderso BROMIDE 00:00: n 00 CETIRIZI DRUG Active Other 2017-0 MD NE INGREDI 4-14 Anderso 00:00: n 00 DEXLANSO DRUG Active Diarrhea 2017-0 MD PRAZOLE INGREDI 4-14 Anderso 00:00: n 00 FLUTICAS DRUG Active High Sob 2017-0 MD ONE INGREDI 4-14 Anderso 00:00: n 00 MACROLID Drug Active Nausea 2017-0 MD E Class 4-14 Anderso ANTIBIOT 00:00: n ICS 00 TRIAMTER DRUG Active Swelling 2017-0 MD ELENA-HYDR 4-14 Anderso [place] 00:00: n HIAZID 00 ADHESIVE Drug Active Low Rash 2017-0 MD Class 4-14 Anderso 00:00: n 00 FLUTICAS DRUG Active Low Anxiety 2017-0 MD ONE 4-14 Anderso FUROATE- 00:00: n VILANTER 00 OL ZILEUTON DRUG Active Low Anxiety 2017-0 MD INGREDI 4-14 Anderso 00:00: n 00 LATEX DRUG Active High Rash 2017-0 MD INGREDI 4-14 Anderso 00:00: n 00 BUDESONI DRUG Active High Sob 2017-0 MD DE-FORMO 4-14 Anderso TEROL 00:00: n 00 FLUTICAS DRUG Active High Sob 2017-0 MD ONE INGREDI 4-14 Anderso 00:00: n 00 LATEX DRUG Active High Rash 2017-0 MD INGREDI 4-14 Anderso 00:00: n 00 TIOTROPI DRUG Active High Sob 2017-0 MD UM INGREDI 4-14 Anderso BROMIDE 00:00: n 00 CETIRIZI DRUG Active Other 2017-0 MD NE INGREDI 4-14 Anderso 00:00: n 00 DEXLANSO DRUG Active Diarrhea 2017-0 MD PRAZOLE INGREDI 4-14 Anderso 00:00: n 00 MACROLID Drug Active Nausea 2017-0 MD E Class 4-14 Anderso ANTIBIOT 00:00: n ICS 00 TRIAMTER DRUG Active Swelling 2017-0 MD ELENA-HYDR 4-14 Anderso [place] 00:00: n HIAZID 00 ADHESIVE Drug Active Low Rash 2017-0 MD Class 4-14 Anderso 00:00: n 00 FLUTICAS DRUG Active Low Anxiety 2017-0 MD ONE 4-14 Anderso FUROATE- 00:00: n VILANTER 00 OL TRIAMTER DRUG Active Swelling 2017-0 Univer s ELENA-HYDR 4-14 ity of [place] 00:00: [place] HIAZID 00 [facility] ZILEUTON DRUG Active Low Anxiety 2017-0 MD INGREDI 4-14 Anderso 00:00: n 00 BUDESONI DRUG Active High Sob 2017-0 MD DE-FORMO 4-14 Anderso TEROL 00:00: n 00 FLUTICAS DRUG Active High Sob 2017-0 MD ONE INGREDI 4-14 Anderso 00:00: n 00 LATEX DRUG Active High Rash 2017-0 MD INGREDI 4-14 Anderso 00:00: n 00 TIOTROPI DRUG Active High Sob 2017-0 MD UM INGREDI 4-14 Anderso BROMIDE 00:00: n 00 CETIRIZI DRUG Active Other 2017-0 MD NE INGREDI 4-14 Anderso 00:00: n 00 DEXLANSO DRUG Active Diarrhea 2017-0 MD PRAZOLE INGREDI 4-14 Anderso 00:00: n 00 MACROLID Drug Active Nausea 2017-0 MD E Class 4-14 Anderso ANTIBIOT 00:00: n ICS 00 TRIAMTER DRUG Active Swelling 2017-0 MD ELENA-HYDR 4-14 Anderso [place] 00:00: n HIAZID 00 ADHESIVE Drug Active Low Rash 2017-0 MD Class 4-14 Anderso 00:00: n 00 FLUTICAS DRUG Active Low Anxiety 2017-0 MD ONE 4-14 Anderso FUROATE- 00:00: n VILANTER 00 OL ZILEUTON DRUG Active Low Anxiety 2017-0 MD INGREDI 4-14 Anderso 00:00: n 00 TIOTROPI DRUG Active High Sob 2017-0 MD UM INGREDI 4-14 Anderso BROMIDE 00:00: n 00 BUDESONI DRUG Active High Sob 2017-0 MD DE-FORMO 4-14 Anderso TEROL 00:00: n 00 FLUTICAS DRUG Active High Sob 2017-0 MD ONE INGREDI 4-14 Anderso 00:00: n 00 LATEX DRUG Active High Rash 2017-0 MD INGREDI 4-14 Anderso 00:00: n 00 TIOTROPI DRUG Active High Sob 2017-0 MD UM INGREDI 4-14 Anderso BROMIDE 00:00: n 00 CETIRIZI DRUG Active Other 2017-0 MD NE INGREDI 4-14 Anderso 00:00: n 00 DEXLANSO DRUG Active Diarrhea 2017-0 MD PRAZOLE INGREDI 4-14 Anderso 00:00: n 00 MACROLID Drug Active Nausea 2017-0 MD E Class 4-14 Anderso ANTIBIOT 00:00: n ICS 00 ZILEUTON DRUG Active Anxiety 2017-0 Univers INGREDI 4-14 ity of 00:00: [place] 00 [facility] TRIAMTER DRUG Active Swelling 2017-0 MD ELENA-HYDR 4-14 Anderso [place] 00:00: n HIAZID 00 ADHESIVE Drug Active Low Rash 2017-0 MD Class 4-14 Anderso 00:00: n 00 CETIRIZI DRUG Active Other 2017-0 MD NE INGREDI 4-14 Anderso 00:00: n 00 FLUTICAS DRUG Active Low Anxiety 2017-0 MD ONE 4-14 Anderso FUROATE- 00:00: n VILANTER 00 OL ZILEUTON DRUG Active Low Anxiety 2017-0 MD INGREDI 4-14 Anderso 00:00: n 00 BUDESONI DRUG Active High Sob 2017-0 MD DE-FORMO 4-14 Anderso TEROL 00:00: n 00 FLUTICAS DRUG Active High Sob 2017-0 MD ONE INGREDI 4-14 Anderso 00:00: n 00 LATEX DRUG Active High Rash 2017-0 MD INGREDI 4-14 Anderso 00:00: n 00 TIOTROPI DRUG Active High Sob 2017-0 MD UM INGREDI 4-14 Anderso BROMIDE 00:00: n 00 CETIRIZI DRUG Active Other 2017-0 MD NE INGREDI 4-14 Anderso 00:00: n 00 DEXLANSO DRUG Active Diarrhea 2017-0 MD PRAZOLE INGREDI 4-14 Anderso 00:00: n 00 MACROLID Drug Active Nausea 2017-0 MD E Class 4-14 Anderso ANTIBIOT 00:00: n ICS 00 DEXLANSO DRUG Active Diarrhea 2017-0 MD PRAZOLE INGREDI 4-14 Anderso 00:00: n 00 TRIAMTER DRUG Active Swelling 2017-0 MD ELENA-HYDR 4-14 Anderso [place] 00:00: n HIAZID 00 ADHESIVE Drug Active Low Rash 2017-0 MD Class 4-14 Anderso 00:00: n 00 FLUTICAS DRUG Active Low Anxiety 2017-0 MD ONE 4-14 Anderso FUROATE- 00:00: n VILANTER 00 OL ZILEUTON DRUG Active Low Anxiety 2017-0 MD INGREDI 4-14 Anderso 00:00: n 00 BUDESONI DRUG Active High Sob 2017-0 MD DE-FORMO 4-14 Anderso TEROL 00:00: n 00 FLUTICAS DRUG Active High Sob 2017-0 MD ONE INGREDI 4-14 Anderso 00:00: n 00 LATEX DRUG Active High Rash 2017-0 MD INGREDI 4-14 Anderso 00:00: n 00 TIOTROPI DRUG Active High Sob 2017-0 MD UM INGREDI 4-14 Anderso BROMIDE 00:00: n 00 CETIRIZI DRUG Active Other 2017-0 MD NE INGREDI 4-14 Anderso 00:00: n 00 MACROLID Drug Active Nausea 2017-0 MD E Class 4-14 Anderso ANTIBIOT 00:00: n ICS 00 DEXLANSO DRUG Active Diarrhea 2017-0 MD PRAZOLE INGREDI 4-14 Anderso 00:00: n 00 MACROLID Drug Active Nausea 2017-0 MD E Class 4-14 Anderso ANTIBIOT 00:00: n ICS 00 TRIAMTER DRUG Active Swelling 2017- MD ELENA-HYDR 4-14 Anderso [place] 00:00: n HIAZID 00 ADHESIVE Drug Active Low Rash 2017- MD Class 4-14 Anderso 00:00: n 00 FLUTICAS DRUG Active Low Anxiety 2017-0 MD ONE 4-14 Anderso FUROATE- 00:00: n VILANTER 00 OL ZILEUTON DRUG Active Low Anxiety 2017- MD INGREDI 4-14 Anderso 00:00: n 00 BUDESONI DRUG Active High Sob 2017- MD DE-FORMO 4-14 Anderso TEROL 00:00: n 00 Fluticas Propensi Active Anxiety 2016-0 Unive rs one ty to 4-14 ity of Furoate- adverse 00:00: [place] Vilanter reaction 00 [facility] FLUTICAS DRUG Active High Sob 2017-0 MD ONE INGREDI 4-14 Anderso 00:00: n 00 LATEX DRUG Active High Rash 2017-0 MD INGREDI 4-14 Anderso 00:00: n 00 TIOTROPI DRUG Active High Sob 2017-0 MD UM INGREDI 4-14 Anderso BROMIDE 00:00: n 00 CETIRIZI DRUG Active Other 2017- MD NE INGREDI 4-14 Anderso 00:00: n 00 DEXLANSO DRUG Active Diarrhea 2017-0 MD PRAZOLE INGREDI 4-14 Anderso 00:00: n 00 MACROLID Drug Active Nausea 2017-0 MD E Class 4-14 Anderso ANTIBIOT 00:00: n ICS 00 TRIAMTER DRUG Active Swelling 2017-0 MD ELENA-HYDR 4-14 Anderso [place] 00:00: n HIAZID 00 ADHESIVE Drug Active Low Rash 2017-0 MD Class 4-14 Anderso 00:00: n 00 FLUTICAS DRUG Active Low Anxiety 2017-0 MD ONE 4-14 Anderso FUROATE- 00:00: n VILANTER 00 OL ZILEUTON DRUG Active Low Anxiety 2017-0 MD INGREDI 4-14 Anderso 00:00: n 00 BUDESONI DRUG Active High Sob 2017-0 MD DE-FORMO 4-14 Anderso TEROL 00:00: n 00 FLUTICAS DRUG Active High Sob 2017-0 MD ONE INGREDI 4-14 Anderso 00:00: n 00 TRIAMTER DRUG Active Swelling 2017-0 MD ELENA-HYDR 4-14 Anderso [place] 00:00: n HIAZID 00 LATEX DRUG Active High Rash 2017-0 MD INGREDI 4-14 Anderso 00:00: n 00 TIOTROPI DRUG Active High Sob 2017-0 MD UM INGREDI 4-14 Anderso BROMIDE 00:00: n 00 CETIRIZI DRUG Active Other 2017-0 MD NE INGREDI 4-14 Anderso 00:00: n 00 DEXLANSO DRUG Active Diarrhea 2017-0 MD PRAZOLE INGREDI 4-14 Anderso 00:00: n 00 ADHESIVE Drug Active Low Rash 2017-0 MD Class 4-14 Anderso 00:00: n 00 MACROLID Drug Active Nausea 2017-0 MD E Class 4-14 Anderso ANTIBIOT 00:00: n ICS 00 TRIAMTER DRUG Active Swelling 2017-0 MD ELENA-HYDR 4-14 Anderso [place] 00:00: n HIAZID 00 ADHESIVE Drug Active Low Rash 2017-0 MD Class 4-14 Anderso 00:00: n 00 FLUTICAS DRUG Active Low Anxiety 2017-0 MD ONE 4-14 Anderso FUROATE- 00:00: n VILANTER 00 OL ZILEUTON DRUG Active Low Anxiety 2017-0 MD INGREDI 4-14 Anderso 00:00: n 00 FLUTICAS DRUG Active Low Anxiety 2017-0 MD ONE 4-14 Anderso FUROATE- 00:00: n VILANTER 00 OL BUDESONI DRUG Active High Sob 2017-0 MD DE-FORMO 4-14 Anderso TEROL 00:00: n 00 FLUTICAS DRUG Active High Sob 2017-0 MD ONE INGREDI 4-14 Anderso 00:00: n 00 LATEX DRUG Active High Rash 2017-0 MD INGREDI 4-14 Anderso 00:00: n 00 TIOTROPI DRUG Active High Sob 2017-0 MD UM INGREDI 4-14 Anderso BROMIDE 00:00: n 00 CETIRIZI DRUG Active Other 2017-0 MD NE INGREDI 4-14 Anderso 00:00: n 00 DEXLANSO DRUG Active Diarrhea 2017-0 MD PRAZOLE INGREDI 4-14 Anderso 00:00: n 00 MACROLID Drug Active Nausea 2017-0 MD E Class 4-14 Anderso ANTIBIOT 00:00: n ICS 00 TRIAMTER DRUG Active Swelling 2017-0 MD ELENA-HYDR 4-14 Anderso [place] 00:00: n HIAZID 00 ZILEUTON DRUG Active Low Anxiety 2017-0 MD INGREDI 4-14 Anderso 00:00: n 00 ADHESIVE Drug Active Low Rash 2017-0 MD Class 4-14 Anderso 00:00: n 00 FLUTICAS DRUG Active Low Anxiety 2017-0 MD ONE 4-14 Anderso FUROATE- 00:00: n VILANTER 00 OL ZILEUTON DRUG Active Low Anxiety 2017-0 MD INGREDI 4-14 Anderso 00:00: n 00 BUDESONI DRUG Active High Sob 2017-0 MD DE-FORMO 4-14 Anderso TEROL 00:00: n 00 FLUTICAS DRUG Active High Sob 2017-0 MD ONE INGREDI 4-14 Anderso 00:00: n 00 LATEX DRUG Active High Rash 2017-0 MD INGREDI 4-14 Anderso 00:00: n 00 TIOTROPI DRUG Active High Sob 2017-0 MD UM INGREDI 4-14 Anderso BROMIDE 00:00: n 00 Budesoni Propensi Active Shortness of 2017-0 Univers de-Formo ty to Breath 4-14 ity of terol adverse 00:00: [place] reaction 00 [facility] s Branch CETIRIZI DRUG Active Other 2017-0 MD NE INGREDI 4-14 Anderso 00:00: n 00 DEXLANSO DRUG Active Diarrhea 2017-0 MD PRAZOLE INGREDI 4-14 Anderso 00:00: n 00 MACROLID Drug Active Nausea 2017-0 MD E Class 4-14 Anderso ANTIBIOT 00:00: n ICS 00 TRIAMTER DRUG Active Swelling 2017-0 MD ELENA-HYDR 4-14 Anderso [place] 00:00: n HIAZID 00 ADHESIVE Drug Active Low Rash 2017-0 MD Class 4-14 Anderso 00:00: n 00 FLUTICAS DRUG Active Low Anxiety 2017-0 MD ONE 4-14 Anderso FUROATE- 00:00: n VILANTER 00 OL ZILEUTON DRUG Active Low Anxiety 2017-0 MD INGREDI 4-14 Anderso 00:00: n 00 BUDESONI DRUG Active High Sob 2017-0 MD DE-FORMO 4-14 Anderso TEROL 00:00: n 00 BUDESONI DRUG Active High Sob 2017-0 MD DE-FORMO 4-14 Anderso TEROL 00:00: n 00 FLUTICAS DRUG Active High Sob 2017-0 MD ONE INGREDI 4-14 Anderso 00:00: n 00 LATEX DRUG Active High Rash 2017-0 MD INGREDI 4-14 Anderso 00:00: n 00 TIOTROPI DRUG Active High Sob 2017-0 MD UM INGREDI 4-14 Anderso BROMIDE 00:00: n 00 CETIRIZI DRUG Active Other 2017-0 MD NE INGREDI 4-14 Anderso 00:00: n 00 FLUTICAS DRUG Active High Sob 2017-0 MD ONE INGREDI 4-14 Anderso 00:00: n 00 DEXLANSO DRUG Active Diarrhea 2017-0 MD PRAZOLE INGREDI 4-14 Anderso 00:00: n 00 MACROLID Drug Active Nausea 2017-0 MD E Class 4-14 Anderso ANTIBIOT 00:00: n ICS 00 TRIAMTER DRUG Active Swelling 2017-0 MD ELENA-HYDR 4-14 Anderso [place] 00:00: n HIAZID 00 ADHESIVE Drug Active Low Rash 2017-0 MD Class 4-14 Anderso 00:00: n 00 FLUTICAS DRUG Active Low Anxiety 2017-0 MD ONE 4-14 Anderso FUROATE- 00:00: n VILANTER 00 OL LATEX DRUG Active High Rash 2017-0 MD INGREDI 4-14 Anderso 00:00: n 00 Fluticas Propensi Active Shortness of 2017-0 Univers one ty to Breath 4-14 ity of Propion- adverse 00:00: [place] [facility] reaction 00 [facility] ZILEUTON DRUG Active Low Anxiety 2017-0 MD INGREDI 4-14 Anderso 00:00: n 00 BUDESONI DRUG Active High Sob 2017-0 MD DE-FORMO 4-14 Anderso TEROL 00:00: n 00 FLUTICAS DRUG Active High Sob 2017-0 MD ONE INGREDI 4-14 Anderso 00:00: n 00 LATEX DRUG Active High Rash 2017-0 MD INGREDI 4-14 Anderso 00:00: n 00 TIOTROPI DRUG Active High Sob 2017-0 MD UM INGREDI 4-14 Anderso BROMIDE 00:00: n 00 CETIRIZI DRUG Active Other 2017-0 MD NE INGREDI 4-14 Anderso 00:00: n 00 DEXLANSO DRUG Active Diarrhea 2017-0 MD PRAZOLE INGREDI 4-14 Anderso 00:00: n 00 MACROLID Drug Active Nausea 2017-0 MD E Class 4-14 Anderso ANTIBIOT 00:00: n ICS 00 TRIAMTER DRUG Active Swelling 2017-0 MD ELENA-HYDR 4-14 Anderso [place] 00:00: n HIAZID 00 ADHESIVE Drug Active Low Rash 2017-0 MD Class 4-14 Anderso 00:00: n 00 FLUTICAS DRUG Active Low Anxiety 2017-0 MD ONE 4-14 Anderso FUROATE- 00:00: n VILANTER 00 OL ZILEUTON DRUG Active Low Anxiety 2017-0 MD INGREDI 4-14 Anderso 00:00: n 00 BUDESONI DRUG Active High Sob 2017-0 MD DE-FORMO 4-14 Anderso TEROL 00:00: n 00 FLUTICAS DRUG Active High Sob 2017-0 MD ONE INGREDI 4-14 Anderso 00:00: n 00 Adhesive Propensi Active Rash 2017-0 Univer s ty to 4-14 ity of adverse 00:00: [place] reaction 00 [facility] s [facility] Macrolid Propensi Active Nausea 2017-0 Univer s e ty to and/or 4-14 ity of Antibiot adverse Vomiting 00:00: [place] ics reaction 00 [facility] s [facility] Dexlanso Propensi Active Diarrhea 2017-0 Univ ers prazole ty to 4-14 ity of adverse 00:00: [place] reaction 00 Medical s [facility] Fluticas Propensi Active Shortness of 2017-0 Univers one ty to Breath 4-14 ity of Propiona adverse 00:00: [place] te reaction 00 Medical s Branch Latex Propensi Active Rash Univers ty to 4-14 ity of adverse 00:00: [place] reaction 00 Medical s [facility] Beclomet Propensi Active Shortness of Univers hasone ty to Breath 4-14 ity of Dipropio adverse 00:00: [place] kala reaction 00 Medical s Branch Budesoni Propensi Active Shortness of Univers de-Formo ty to Breath 4-14 ity of terol adverse 00:00: [place] reaction 00 Medical s [facility] Triamter Propensi Active Swelling Univ ers elena-Hydr ty to 4-14 ity of ochlorot adverse 00:00: [place] hiazid reaction 00 Medical s Branch Dexlanso Propensi Active Diarrhea Meth chayo prazole ty to 4-14 st adverse 00:00: Hospita reaction 00 l s to drug Fluticas Propensi Active Shortness Of Methodi one ty to Breath 4-14 st adverse 00:00: Hospita reaction 00 l s to drug Macrolid Propensi Active GI Method i e ty to Intolerance 4-14 st Antibiot adverse 00:00: Hospita ics reaction 00 l s to drug Adhesive Propensi Active Rash Method i ty to 4-14 st adverse 00:00: Hospita reaction 00 l s to drug Tiotropi Propensi Active Shortness Of Methodi um ty to Breath 4-14 st [place] adverse 00:00: Hospita reaction 00 l s to drug Triamter Propensi Active Swelling Meth chayo elena-Hydr ty to 4-14 st [place] adverse 00:00: Hospita hiazid reaction 00 l s to drug Zileuton Propensi Active Anxiety Metho di ty to 4-14 st adverse 00:00: Hospita reaction 00 l s to drug Banana Propensi Active GI Abdominal Metho di ty to Intolerance 4-[address] adverse 00:00: inal pain Hospit a reaction 00 l s to drug Beclomet Propensi Active Shortness Of Methodi hasone ty to Breath 4-14 st Dipropio adverse 00:00: Hospita kala reaction 00 l s to drug Budesoni Propensi Active Shortness Of Methodi de-Formo ty to Breath 4-14 st terol adverse 00:00: Hospita reaction 00 l s to drug Cetirizi Propensi Active GI Metallic Meth chayo ne ty to Intolerance [address] adverse 00:00: llic [facility]ospita reaction 00 taste l s to drug Adhesive Propensi Active Rash Univer s ty to 4-14 ity of adverse 00:00: [place] reaction 00 MD antonio card [facility] Banana Propensi Active Other (See Other Univ ers ty to Comments) 4-14 reaction( ity of adverse 00:00: s): GI [place] reaction 00 Intoleran MD alvarez ceAbdomin [facility] osborne n painAbdom [facility] painAbdom inal pain Budesoni Drug Active Shortness Of Un dequan de-Formo Allergy Breath 4-14 ity of terol 00:00: [place] 00 MD Luz [facility] card [facility] Cetirizi Propensi Active Other (See Other Un dequan ne ty to Comments) 414 reaction( ity of adverse 00:00: s): GI [place] reaction 00 Intoleran MD alvarez ceMetalli [facility] ng n tasteMeta Cancer llic Center tasteMeta llic taste Dexlanso Drug Active Diarrhea Univer s prazole Allergy 4-14 ity of 00:00: [place] 00 MD Luz [facility] card [facility] Fluticas Drug Active Shortness Of Un dequan one Allergy Breath 4-14 ity of 00:00: [place] 00 MD [facility] card [facility] Fluticas Propensi Active Anxiety Unive rs one ty to 4-14 ity of Furoate- adverse 00:00: [place] Vilanter reaction 00 MD anam card [facility] Latex Drug Active Rash Univers Allergy 4-14 ity of 00:00: [place] 00 MD [facility] card [facility] Macrolid Propensi Active Nausea And Un dequan e ty to Vomiting 4-14 ity of Antibiot adverse 00:00: [place] ics reaction 00 MD antonio card [facility] Tiotropi Propensi Active Shortness Of Univers um ty to Breath 4-14 ity of [place] adverse 00:00: [place] reaction 00 MD antonio card [facility] Triamter Drug Active Swelling Univer s elena-Hydr Allergy 14 ity of [place]lor[place] 00:00: [place] hiazid 00 MD Lu[facility] card [facility] Zileuton Propensi Active Anxiety Unive rs ty to 4-14 ity of adverse 00:00: [place] reaction 00 MD antonio card [facility] CEFDINIR DRUG Active Hallucinates Un dequan INGREDI 4-05 ity of 00:00: [place] 00 [facility] Cefdinir Propensi Active Hallucinatio Univers ty to ns 4-05 ity of adverse 00:00: [place] reaction 00 [facility] s [facility] Cefdinir Propensi Active Hallucinatio Methodi ty to ns 4-05 st adverse 00:00: Hospita reaction 00 l s to drug SULFA Drug Active High 2012- MD (SULFONA Class 4-08 Anderso MIDE 00:00: n ANTIBIOT 00 ICS) SULFA Drug Active High 2012- MD (SULFONA Class 4-08 Anderso MIDE 00:00: n ANTIBIOT 00 ICS) LEVOFLOX DRUG Active 2012- MD ACIN INGREDI 4-08 Anderso 00:00: n 00 AMOXICIL DRUG Active High Other 2012- TERA-POT 4-08 Anderso CLAVULAN 00:00: n ATE 00 SULFA Drug Active High 2012- MD (SULFONA Class 4-08 Anderso MIDE 00:00: n ANTIBIOT 00 ICS) LEVOFLOX DRUG Active 2012- MD ACIN INGREDI 4-08 Anderso 00:00: n 00 AMOXICIL DRUG Active High Other 2012- MD TERA-POT 4-08 Anderso CLAVULAN 00:00: n ATE 00 SULFA Drug Active High 2012- MD (SULFONA Class 4-08 Anderso MIDE 00:00: n ANTIBIOT 00 ICS) LEVOFLOX DRUG Active 2012- MD ACIN INGREDI 408 Anderso 00:00: n 00 AMOXICIL DRUG Active High Other 2012- MD TERA-POT 4-08 Anderso CLAVULAN 00:00: n ATE 00 LEVOFLOX DRUG Active 2012- MD ACIN INGREDI 4-08 Anderso 00:00: n 00 SULFA Drug Active High 2012- MD (SULFONA Class 4-08 Anderso MIDE 00:00: n ANTIBIOT 00 ICS) LEVOFLOX DRUG Active 2012- MD ACIN INGREDI 4-08 Anderso 00:00: n 00 AMOXICIL DRUG Active High Other 2012- MD TERA-POT 4-08 Anderso CLAVULAN 00:00: n ATE 00 SULFA Drug Active High MD (SULFONA Class 4-08 Anderso MIDE 00:00: n ANTIBIOT 00 ICS) LEVOFLOX DRUG Active 2012- MD ACIN INGREDI 4-08 Anderso 00:00: n 00 AMOXICIL DRUG Active High Other 2012- MD TERA-POT 4-08 Anderso CLAVULAN 00:00: n ATE 00 SULFA Drug Active High MD (SULFONA Class 4-08 Anderso MIDE 00:00: n ANTIBIOT 00 ICS) LEVOFLOX DRUG Active MD ACIN INGREDI 4-08 Anderso 00:00: n 00 AMOXICIL DRUG Active High Other 2012- MD TERA-POT 4-08 Anderso CLAVULAN 00:00: n ATE 00 SULFA Drug Active High 2012- MD (SULFONA Class 4-08 Anderso MIDE 00:00: n ANTIBIOT 00 ICS) LEVOFLOX DRUG Active 2012- MD ACIN INGREDI 4-08 Anderso 00:00: n 00 AMOXICIL DRUG Active High Other 2012- MD TERA-POT 4-08 Anderso CLAVULAN 00:00: n ATE 00 SULFA Drug Active High 2012- MD (SULFONA Class 4-08 Anderso MIDE 00:00: n ANTIBIOT 00 ICS) LEVOFLOX DRUG Active 2012- MD ACIN INGREDI 4-08 Anderso 00:00: n 00 AMOXICIL DRUG Active High Other 2012- MD TERA-POT 4-08 Anderso CLAVULAN 00:00: n ATE 00 SULFA Drug Active High 2012- MD (SULFONA Class 4-08 Anderso MIDE 00:00: n ANTIBIOT 00 ICS) AMOXICIL DRUG Active High Other 2012- MD TERA-POT 4-08 Anderso CLAVULAN 00:00: n ATE 00 LEVOFLOX DRUG Active 2012- MD ACIN INGREDI 4-08 Anderso 00:00: n 00 AMOXICIL DRUG Active High Other 2012- MD TERA-POT 4-08 Anderso CLAVULAN 00:00: n ATE 00 SULFA Drug Active High 2012- MD (SULFONA Class 4-08 Anderso MIDE 00:00: n ANTIBIOT 00 ICS) LEVOFLOX DRUG Active 2012- MD ACIN INGREDI 408 Anderso 00:00: n 00 AMOXICIL DRUG Active High Other 2012- MD TERA-POT 4-08 Anderso CLAVULAN 00:00: n ATE 00 SULFA Drug Active High 2012- MD (SULFONA Class 4-08 Anderso MIDE 00:00: n ANTIBIOT 00 ICS) LEVOFLOX DRUG Active 2012- MD ACIN INGREDI 4-08 Anderso 00:00: n 00 AMOXICIL DRUG Active High Other MD TERA-POT 4-08 Anderso CLAVULAN 00:00: n ATE 00 SULFA Drug Active High MD (SULFONA Class 4-08 Anderso MIDE 00:00: n ANTIBIOT 00 ICS) SULFA Drug Active High MD (SULFONA Class 4-08 Anderso MIDE 00:00: n ANTIBIOT 00 ICS) LEVOFLOX DRUG Active 2012- MD ACIN INGREDI 4-08 Anderso 00:00: n 00 AMOXICIL DRUG Active High Other 2012- MD TERA-POT 4-08 Anderso CLAVULAN 00:00: n ATE 00 SULFA Drug Active High 2012- MD (SULFONA Class 4-08 Anderso MIDE 00:00: n ANTIBIOT 00 ICS) LEVOFLOX DRUG Active 2012- MD ACIN INGREDI 4-08 Anderso 00:00: n 00 AMOXICIL DRUG Active High Other 2012- MD TERA-POT 4-08 Anderso CLAVULAN 00:00: n ATE 00 SULFA Drug Active High 2012- MD (SULFONA Class 4-08 Anderso MIDE 00:00: n ANTIBIOT 00 ICS) LEVOFLOX DRUG Active 2012- MD ACIN INGREDI 4-08 Anderso 00:00: n 00 LEVOFLOX DRUG Active 2012- MD ACIN INGREDI 4-08 Anderso 00:00: n 00 AMOXICIL DRUG Active High Other 2012- MD TERA-POT 4-08 Anderso CLAVULAN 00:00: n ATE 00 SULFA Drug Active High 2012- MD (SULFONA Class 4-08 Anderso MIDE 00:00: n ANTIBIOT 00 ICS) LEVOFLOX DRUG Active 2012- MD ACIN INGREDI 4-08 Anderso 00:00: n 00 AMOXICIL DRUG Active High Other MD TERA-POT 4-08 Anderso CLAVULAN 00:00: n ATE 00 SULFA Drug Active High MD (SULFONA Class 4-08 Anderso MIDE 00:00: n ANTIBIOT 00 ICS) LEVOFLOX DRUG Active MD ACIN INGREDI 4-08 Anderso 00:00: n 00 AMOXICIL DRUG Active High Other MD TERA-POT 4-08 Anderso CLAVULAN 00:00: n ATE 00 SULFA Drug Active High MD (SULFONA Class 4-08 Anderso MIDE 00:00: n ANTIBIOT 00 ICS) LEVOFLOX DRUG Active MD ACIN INGREDI 4-08 Anderso 00:00: n 00 AMOXICIL DRUG Active High Other MD TERA-POT 4-08 Anderso CLAVULAN 00:00: n ATE 00 SULFA Drug Active High 2012- MD (SULFONA Class 4-08 Anderso MIDE 00:00: n ANTIBIOT 00 ICS) LEVOFLOX DRUG Active 2012- MD ACIN INGREDI 4-08 Anderso 00:00: n 00 AMOXICIL DRUG Active High Other MD TERA-POT 4-08 Anderso CLAVULAN 00:00: n ATE 00 SULFA Drug Active High MD (SULFONA Class 4-08 Anderso MIDE 00:00: n ANTIBIOT 00 ICS) LEVOFLOX DRUG Active 2012- MD ACIN INGREDI 4-08 Anderso 00:00: n 00 AMOXICIL DRUG Active High Other 2012- MD TERA-POT 4-08 Anderso CLAVULAN 00:00: n ATE 00 AMOXICIL DRUG Active High Other 2012- MD TERA-POT 4-08 Anderso CLAVULAN 00:00: n ATE 00 SULFA Drug Active High 2012- MD (SULFONA Class 4-08 Anderso MIDE 00:00: n ANTIBIOT 00 ICS) LEVOFLOX DRUG Active 2012- MD ACIN INGREDI 4-08 Anderso 00:00: n 00 AMOXICIL DRUG Active High Other 2012- MD TERA-POT 4-08 Anderso CLAVULAN 00:00: n ATE 00 SULFA Drug Active High 2012- MD (SULFONA Class 4-08 Anderso MIDE 00:00: n ANTIBIOT 00 ICS) LEVOFLOX DRUG Active 2012- MD ACIN INGREDI 4-08 Anderso 00:00: n 00 AMOXICIL DRUG Active High Other MD TERA-POT 4-08 Anderso CLAVULAN 00:00: n ATE 00 AMOXICIL DRUG Active High Other MD TERA-POT 4-08 Anderso CLAVULAN 00:00: n ATE 00 SULFA Drug Active High MD (SULFONA Class 4-08 Anderso MIDE 00:00: n ANTIBIOT 00 ICS) SULFA Drug Active High MD (SULFONA Class 4-08 Anderso MIDE 00:00: n ANTIBIOT 00 ICS) LEVOFLOX DRUG Active MD ACIN INGREDI 4-08 Anderso 00:00: n 00 AMOXICIL DRUG Active High Other 2012- MD TERA-POT 4-08 Anderso CLAVULAN 00:00: n ATE 00 SULFA Drug Active High MD (SULFONA Class 4-08 Anderso MIDE 00:00: n ANTIBIOT 00 ICS) LEVOFLOX DRUG Active 2012- MD ACIN INGREDI 4-08 Anderso 00:00: n 00 AMOXICIL DRUG Active High Other 2012- MD TERA-POT 4-08 Anderso CLAVULAN 00:00: n ATE 00 SULFA Drug Active High MD (SULFONA Class 4-08 Anderso MIDE 00:00: n ANTIBIOT 00 ICS) LEVOFLOX DRUG Active 2012- MD ACIN INGREDI 4-08 Anderso 00:00: n 00 LEVOFLOX DRUG Active 2012- MD ACIN INGREDI 4-08 Anderso 00:00: n 00 AMOXICIL DRUG Active High Other 2012- MD TERA-POT 4-08 Anderso CLAVULAN 00:00: n ATE 00 SULFA Drug Active High 2012- MD (SULFONA Class 4-08 Anderso MIDE 00:00: n ANTIBIOT 00 ICS) LEVOFLOX DRUG Active 2012- MD ACIN INGREDI 4-08 Anderso 00:00: n 00 AMOXICIL DRUG Active High Other 2012- MD TERA-POT 4-08 Anderso CLAVULAN 00:00: n ATE 00 SULFA Drug Active High 2012- MD (SULFONA Class 4-08 Anderso MIDE 00:00: n ANTIBIOT 00 ICS) LEVOFLOX DRUG Active 2012- MD ACIN INGREDI 4-08 Anderso 00:00: n 00 AMOXICIL DRUG Active High Other 2012- MD TERA-POT 4-08 Anderso CLAVULAN 00:00: n ATE 00 SULFA Drug Active High 2012- MD (SULFONA Class 4-08 Anderso MIDE 00:00: n ANTIBIOT 00 ICS) LEVOFLOX DRUG Active 2012- MD ACIN INGREDI 4-08 Anderso 00:00: n 00 AMOXICIL DRUG Active High Other 2012- MD TERA-POT 4-08 Anderso CLAVULAN 00:00: n ATE 00 SULFA Drug Active High 2012- MD (SULFONA Class 4-08 Anderso MIDE 00:00: n ANTIBIOT 00 ICS) LEVOFLOX DRUG Active 2012- MD ACIN INGREDI 4-08 Anderso 00:00: n 00 AMOXICIL DRUG Active High Other 2012- MD TERA-POT 4-08 Anderso CLAVULAN 00:00: n ATE 00 AMOXICIL DRUG Active High Other 2012- MD TERA-POT 4-08 Anderso CLAVULAN 00:00: n ATE 00 SULFA Drug Active High 2012- MD (SULFONA Class 4-08 Anderso MIDE 00:00: n ANTIBIOT 00 ICS) LEVOFLOX DRUG Active 2012- MD ACIN INGREDI 4-08 Anderso 00:00: n 00 AMOXICIL DRUG Active High Other 2012- MD TERA-POT 4-08 Anderso CLAVULAN 00:00: n ATE 00 SULFA Drug Active High 2012- MD (SULFONA Class 4-08 Anderso MIDE 00:00: n ANTIBIOT 00 ICS) LEVOFLOX DRUG Active 2012- MD ACIN INGREDI 4-08 Anderso 00:00: n 00 AMOXICIL DRUG Active High Other 2012- MD TERA-POT 4-08 Anderso CLAVULAN 00:00: n ATE 00 SULFA Drug Active High 2012- MD (SULFONA Class 4-08 Anderso MIDE 00:00: n ANTIBIOT 00 ICS) LEVOFLOX DRUG Active 2012- MD ACIN INGREDI 4-08 Anderso 00:00: n 00 AMOXICIL DRUG Active High Other MD TERA-POT 4-08 Anderso CLAVULAN 00:00: n ATE 00 SULFA Drug Active High MD (SULFONA Class 4-08 Anderso MIDE 00:00: n ANTIBIOT 00 ICS) SULFA Drug Active High MD (SULFONA Class 4-08 Anderso MIDE 00:00: n ANTIBIOT 00 ICS) LEVOFLOX DRUG Active MD ACIN INGREDI 4-08 Anderso 00:00: n 00 AMOXICIL DRUG Active High Other MD TERA-POT 4-08 Anderso CLAVULAN 00:00: n ATE 00 SULFA Drug Active High MD (SULFONA Class 4-08 Anderso MIDE 00:00: n ANTIBIOT 00 ICS) LEVOFLOX DRUG Active MD ACIN INGREDI 4-08 Anderso 00:00: n 00 IODINE Drug Active High Anaphylaxis MD AND Class 4-08 Anderso IODIDE 00:00: n CONTAINI 00 NG PRODUCTS AMOXICIL DRUG Active High Other MD TERA-POT 4-08 Anderso CLAVULAN 00:00: n ATE 00 SULFA Drug Active High MD (SULFONA Class 4-08 Anderso MIDE 00:00: n ANTIBIOT 00 ICS) LEVOFLOX DRUG Active 2012- MD ACIN INGREDI 4-08 Anderso 00:00: n 00 LEVOFLOX DRUG Active 2012- MD ACIN INGREDI 4-08 Anderso 00:00: n 00 AMOXICIL DRUG Active High Other MD TERA-POT 4-08 Anderso CLAVULAN 00:00: n ATE 00 SULFA Drug Active High MD (SULFONA Class 4-08 Anderso MIDE 00:00: n ANTIBIOT 00 ICS) LEVOFLOX DRUG Active MD ACIN INGREDI 4-08 Anderso 00:00: n 00 AMOXICIL DRUG Active High Other 2012- MD TERA-POT 4-08 Anderso CLAVULAN 00:00: n ATE 00 SULFA Drug Active High 2012- MD (SULFONA Class 4-08 Anderso MIDE 00:00: n ANTIBIOT 00 ICS) LEVOFLOX DRUG Active 2012- MD ACIN INGREDI 4-08 Anderso 00:00: n 00 AMOXICIL DRUG Active High Other 2012- MD TERA-POT 4-08 Anderso CLAVULAN 00:00: n ATE 00 SULFA Drug Active High MD (SULFONA Class 4-08 Anderso MIDE 00:00: n ANTIBIOT 00 ICS) LEVOFLOX DRUG Active MD ACIN INGREDI 4-08 Anderso 00:00: n 00 AMOXICIL DRUG Active High Other MD TERA-POT 4-08 Anderso CLAVULAN 00:00: n ATE 00 SULFA Drug Active High MD (SULFONA Class 4-08 Anderso MIDE 00:00: n ANTIBIOT 00 ICS) LEVOFLOX DRUG Active 2012- MD ACIN INGREDI 4-08 Anderso 00:00: n 00 AMOXICIL DRUG Active High Other 2012- MD TERA-POT 4-08 Anderso CLAVULAN 00:00: n ATE 00 AMOXICIL DRUG Active High Other 2012- MD TERA-POT 4-08 Anderso CLAVULAN 00:00: n ATE 00 SULFA Drug Active High MD (SULFONA Class 4-08 Anderso MIDE 00:00: n ANTIBIOT 00 ICS) LEVOFLOX DRUG Active 2012- MD ACIN INGREDI 4-08 Anderso 00:00: n 00 AMOXICIL DRUG Active High Other 2012- MD TERA-POT 4-08 Anderso CLAVULAN 00:00: n ATE 00 SULFA Drug Active High 2012- MD (SULFONA Class 4-08 Anderso MIDE 00:00: n ANTIBIOT 00 ICS) LEVOFLOX DRUG Active 2012- MD ACIN INGREDI 4-08 Anderso 00:00: n 00 AMOXICIL DRUG Active High Other 2012- MD TERA-POT 4-08 Anderso CLAVULAN 00:00: n ATE 00 SULFA Drug Active High 2012- MD (SULFONA Class 4-08 Anderso MIDE 00:00: n ANTIBIOT 00 ICS) LEVOFLOX DRUG Active 2012- MD ACIN INGREDI 4-08 Anderso 00:00: n 00 SULFA Drug Active High 2012- MD (SULFONA Class 4-08 Anderso MIDE 00:00: n ANTIBIOT 00 ICS) AMOXICIL DRUG Active High Other 2012- MD TERA-POT 4-08 Anderso CLAVULAN 00:00: n ATE 00 SULFA Drug Active High MD (SULFONA Class 4-08 Anderso MIDE 00:00: n ANTIBIOT 00 ICS) LEVOFLOX DRUG Active 2012- MD ACIN INGREDI 4-08 Anderso 00:00: n 00 AMOXICIL DRUG Active High Other 2012- MD TERA-POT 4-08 Anderso CLAVULAN 00:00: n ATE 00 SULFA Drug Active High MD (SULFONA Class 4-08 Anderso MIDE 00:00: n ANTIBIOT 00 ICS) LEVOFLOX DRUG Active MD ACIN INGREDI 4-08 Anderso 00:00: n 00 AMOXICIL DRUG Active High Other MD TERA-POT 4-08 Anderso CLAVULAN 00:00: n ATE 00 LEVOFLOX DRUG Active 2012- MD ACIN INGREDI 4-08 Anderso 00:00: n 00 SULFA Drug Active High MD (SULFONA Class 4-08 Anderso MIDE 00:00: n ANTIBIOT 00 ICS) LEVOFLOX DRUG Active 2012- MD ACIN INGREDI 4-08 Anderso 00:00: n 00 AMOXICIL DRUG Active High Other 2012- MD TERA-POT 4-08 Anderso CLAVULAN 00:00: n ATE 00 SULFA Drug Active High 2012- MD (SULFONA Class 4-08 Anderso MIDE 00:00: n ANTIBIOT 00 ICS) LEVOFLOX DRUG Active 2012- MD ACIN INGREDI 4-08 Anderso 00:00: n 00 AMOXICIL DRUG Active High Other 2012- MD TERA-POT 4-08 Anderso CLAVULAN 00:00: n ATE 00 SULFA Drug Active High 2012- MD (SULFONA Class 4-08 Anderso MIDE 00:00: n ANTIBIOT 00 ICS) LEVOFLOX DRUG Active 2012- MD ACIN INGREDI 4-08 Anderso 00:00: n 00 AMOXICIL DRUG Active High Other 2012- MD TERA-POT 4-08 Anderso CLAVULAN 00:00: n ATE 00 SULFA Drug Active High MD (SULFONA Class 4-08 Anderso MIDE 00:00: n ANTIBIOT 00 ICS) LEVOFLOX DRUG Active MD ACIN INGREDI 4-08 Anderso 00:00: n 00 AMOXICIL DRUG Active High Other MD TERA-POT 4-08 Anderso CLAVULAN 00:00: n ATE 00 SULFA Drug Active High MD (SULFONA Class 4-08 Anderso MIDE 00:00: n ANTIBIOT 00 ICS) LEVOFLOX DRUG Active MD ACIN INGREDI 4-08 Anderso 00:00: n 00 AMOXICIL DRUG Active High Other MD TERA-POT 4-08 Anderso CLAVULAN 00:00: n ATE 00 AMOXICIL DRUG Active High Other MD TERA-POT 4-08 Anderso CLAVULAN 00:00: n ATE 00 SULFA Drug Active High MD (SULFONA Class 4-08 Anderso MIDE 00:00: n ANTIBIOT 00 ICS) LEVOFLOX DRUG Active MD ACIN INGREDI 4-08 Anderso 00:00: n 00 AMOXICIL DRUG Active High Other MD TERA-POT 4-08 Anderso CLAVULAN 00:00: n ATE 00 SULFA Drug Active High MD (SULFONA Class 4-08 Anderso MIDE 00:00: n ANTIBIOT 00 ICS) LEVOFLOX DRUG Active 2012- MD ACIN INGREDI 4-08 Anderso 00:00: n 00 AMOXICIL DRUG Active High Other MD TERA-POT 4-08 Anderso CLAVULAN 00:00: n ATE 00 SULFA Drug Active High MD (SULFONA Class 4-08 Anderso MIDE 00:00: n ANTIBIOT 00 ICS) LEVOFLOX DRUG Active 2012- MD ACIN INGREDI 4-08 Anderso 00:00: n 00 SULFA Drug Active High MD (SULFONA Class 4-08 Anderso MIDE 00:00: n ANTIBIOT 00 ICS) AMOXICIL DRUG Active High Other 2012- MD TERA-POT 4-08 Anderso CLAVULAN 00:00: n ATE 00 SULFA Drug Active High 2012- MD (SULFONA Class 4-08 Anderso MIDE 00:00: n ANTIBIOT 00 ICS) LEVOFLOX DRUG Active 2012- MD ACIN INGREDI 4-08 Anderso 00:00: n 00 AMOXICIL DRUG Active High Other 2012- MD TERA-POT 4-08 Anderso CLAVULAN 00:00: n ATE 00 SULFA Drug Active High MD (SULFONA Class 4-08 Anderso MIDE 00:00: n ANTIBIOT 00 ICS) LEVOFLOX DRUG Active 2012- MD ACIN INGREDI 4-08 Anderso 00:00: n 00 SULFA Drug Active High 2012- MD (SULFONA Class 4-08 Anderso MIDE 00:00: n ANTIBIOT 00 ICS) AMOXICIL DRUG Active High Other 2012- MD TERA-POT 4-08 Anderso CLAVULAN 00:00: n ATE 00 LEVOFLOX DRUG Active 2012- MD ACIN INGREDI 4-08 Anderso 00:00: n 00 SULFA Drug Active High 2012- MD (SULFONA Class 4-08 Anderso MIDE 00:00: n ANTIBIOT 00 ICS) LEVOFLOX DRUG Active 2012- MD ACIN INGREDI 4-08 Anderso 00:00: n 00 AMOXICIL DRUG Active High Other 2012- MD TERA-POT 4-08 Anderso CLAVULAN 00:00: n ATE 00 SULFA Drug Active High 2012- MD (SULFONA Class 4-08 Anderso MIDE 00:00: n ANTIBIOT 00 ICS) LEVOFLOX DRUG Active 2012- MD ACIN INGREDI 4-08 Anderso 00:00: n 00 AMOXICIL DRUG Active High Other 2012- MD TERA-POT 4-08 Anderso CLAVULAN 00:00: n ATE 00 SULFA Drug Active High 2012- MD (SULFONA Class 4-08 Anderso MIDE 00:00: n ANTIBIOT 00 ICS) LEVOFLOX DRUG Active 2012- MD ACIN INGREDI 4-08 Anderso 00:00: n 00 AMOXICIL DRUG Active High Other MD TERA-POT 4-08 Anderso CLAVULAN 00:00: n ATE 00 SULFA Drug Active High MD (SULFONA Class 4-08 Anderso MIDE 00:00: n ANTIBIOT 00 ICS) LEVOFLOX DRUG Active 2012- MD ACIN INGREDI 4-08 Anderso 00:00: n 00 AMOXICIL DRUG Active High Other MD TERA-POT 4-08 Anderso CLAVULAN 00:00: n ATE 00 SULFA Drug Active High MD (SULFONA Class 4-08 Anderso MIDE 00:00: n ANTIBIOT 00 ICS) LEVOFLOX DRUG Active MD ACIN INGREDI 408 Anderso 00:00: n 00 AMOXICIL DRUG Active High Other MD TERA-POT 4-08 Anderso CLAVULAN 00:00: n ATE 00 AMOXICIL DRUG Active High Other MD TERA-POT 4-08 Anderso CLAVULAN 00:00: n ATE 00 SULFA Drug Active High MD (SULFONA Class 4-08 Anderso MIDE 00:00: n ANTIBIOT 00 ICS) LEVOFLOX DRUG Active MD ACIN INGREDI 4-08 Anderso 00:00: n 00 AMOXICIL DRUG Active High Other MD TERA-POT 4-08 Anderso CLAVULAN 00:00: n ATE 00 SULFA Drug Active High MD (SULFONA Class 4-08 Anderso MIDE 00:00: n ANTIBIOT 00 ICS) LEVOFLOX DRUG Active MD ACIN INGREDI 4-08 Anderso 00:00: n 00 AMOXICIL DRUG Active High Other MD TERA-POT 4-08 Anderso CLAVULAN 00:00: n ATE 00 SULFA Drug Active High MD (SULFONA Class 4-08 Anderso MIDE 00:00: n ANTIBIOT 00 ICS) LEVOFLOX DRUG Active 2012- MD ACIN INGREDI 4-08 Anderso 00:00: n 00 SULFA Drug Active High MD (SULFONA Class 4-08 Anderso MIDE 00:00: n ANTIBIOT 00 ICS) AMOXICIL DRUG Active High Other MD TERA-POT 4-08 Anderso CLAVULAN 00:00: n ATE 00 SULFA Drug Active High 2012- MD (SULFONA Class 4-08 Anderso MIDE 00:00: n ANTIBIOT 00 ICS) LEVOFLOX DRUG Active 2012- MD ACIN INGREDI 4-08 Anderso 00:00: n 00 AMOXICIL DRUG Active High Other MD TERA-POT 4-08 Anderso CLAVULAN 00:00: n ATE 00 SULFA Drug Active High MD (SULFONA Class 4-08 Anderso MIDE 00:00: n ANTIBIOT 00 ICS) LEVOFLOX DRUG Active MD ACIN INGREDI 4-08 Anderso 00:00: n 00 LEVOFLOX DRUG Active MD ACIN INGREDI 4-08 Anderso 00:00: n 00 AMOXICIL DRUG Active High Other MD TERA-POT 4-08 Anderso CLAVULAN 00:00: n ATE 00 SULFA Drug Active High MD (SULFONA Class 4-08 Anderso MIDE 00:00: n ANTIBIOT 00 ICS) LEVOFLOX DRUG Active MD ACIN INGREDI 4-08 Anderso 00:00: n 00 AMOXICIL DRUG Active High Other MD TERA-POT 4-08 Anderso CLAVULAN 00:00: n ATE 00 SULFA Drug Active High MD (SULFONA Class 4-08 Anderso MIDE 00:00: n ANTIBIOT 00 ICS) LEVOFLOX DRUG Active MD ACIN INGREDI 4-08 Anderso 00:00: n 00 AMOXICIL DRUG Active High Other 2012- MD TERA-POT 4-08 Anderso CLAVULAN 00:00: n ATE 00 SULFA Drug Active High MD (SULFONA Class 4-08 Anderso MIDE 00:00: n ANTIBIOT 00 ICS) LEVOFLOX DRUG Active 2012- MD ACIN INGREDI 4-08 Anderso 00:00: n 00 AMOXICIL DRUG Active High Other MD TERA-POT 4-08 Anderso CLAVULAN 00:00: n ATE 00 SULFA Drug Active High 2012- MD (SULFONA Class 4-08 Anderso MIDE 00:00: n ANTIBIOT 00 ICS) LEVOFLOX DRUG Active 2012- MD ACIN INGREDI 4-08 Anderso 00:00: n 00 AMOXICIL DRUG Active High Other 2012- MD TERA-POT 4-08 Anderso CLAVULAN 00:00: n ATE 00 SULFA Drug Active High 2012- MD (SULFONA Class 4-08 Anderso MIDE 00:00: n ANTIBIOT 00 ICS) AMOXICIL DRUG Active High Other 2012- MD TERA-POT 4-08 Anderso CLAVULAN 00:00: n ATE 00 LEVOFLOX DRUG Active 2012- MD ACIN INGREDI 4-08 Anderso 00:00: n 00 AMOXICIL DRUG Active High Other 2012- MD TERA-POT 4-08 Anderso CLAVULAN 00:00: n ATE 00 SULFA Drug Active High 2012- MD (SULFONA Class 4-08 Anderso MIDE 00:00: n ANTIBIOT 00 ICS) LEVOFLOX DRUG Active 2012- MD ACIN INGREDI 4-08 Anderso 00:00: n 00 AMOXICIL DRUG Active High Other 2012- MD TERA-POT 4-08 Anderso CLAVULAN 00:00: n ATE 00 SULFA Drug Active High 2012- MD (SULFONA Class 4-08 Anderso MIDE 00:00: n ANTIBIOT 00 ICS) LEVOFLOX DRUG Active 2012- MD ACIN INGREDI 4-08 Anderso 00:00: n 00 AMOXICIL DRUG Active High Other 2012- MD TERA-POT 4-08 Anderso CLAVULAN 00:00: n ATE 00 SULFA Drug Active High 2012- MD (SULFONA Class 4-08 Anderso MIDE 00:00: n ANTIBIOT 00 ICS) SULFA Drug Active High 2012- MD (SULFONA Class 4-08 Anderso MIDE 00:00: n ANTIBIOT 00 ICS) LEVOFLOX DRUG Active 2012- MD ACIN INGREDI 4-08 Anderso 00:00: n 00 AMOXICIL DRUG Active High Other 2012- MD TERA-POT 4-08 Anderso CLAVULAN 00:00: n ATE 00 SULFA Drug Active High 2012- MD (SULFONA Class 4-08 Anderso MIDE 00:00: n ANTIBIOT 00 ICS) LEVOFLOX DRUG Active 2012- MD ACIN INGREDI 4-08 Anderso 00:00: n 00 AMOXICIL DRUG Active High Other 2012- MD TERA-POT 4-08 Anderso CLAVULAN 00:00: n ATE 00 SULFA Drug Active High 2012- MD (SULFONA Class 4-08 Anderso MIDE 00:00: n ANTIBIOT 00 ICS) LEVOFLOX DRUG Active 2012- MD ACIN INGREDI 4-08 Anderso 00:00: n 00 LEVOFLOX DRUG Active MD ACIN INGREDI 4-08 Anderso 00:00: n 00 AMOXICIL DRUG Active High Other MD TERA-POT 4-08 Anderso CLAVULAN 00:00: n ATE 00 SULFA Drug Active High 2012- MD (SULFONA Class 4-08 Anderso MIDE 00:00: n ANTIBIOT 00 ICS) LEVOFLOX DRUG Active MD ACIN INGREDI 4-08 Anderso 00:00: n 00 AMOXICIL DRUG Active High Other MD TERA-POT 4-08 Anderso CLAVULAN 00:00: n ATE 00 SULFA Drug Active High MD (SULFONA Class 4-08 Anderso MIDE 00:00: n ANTIBIOT 00 ICS) LEVOFLOX DRUG Active MD ACIN INGREDI 4-08 Anderso 00:00: n 00 AMOXICIL DRUG Active High Other 2012- MD TERA-POT 4-08 Anderso CLAVULAN 00:00: n ATE 00 SULFA Drug Active High 2012- MD (SULFONA Class 4-08 Anderso MIDE 00:00: n ANTIBIOT 00 ICS) LEVOFLOX DRUG Active MD ACIN INGREDI 4-08 Anderso 00:00: n 00 AMOXICIL DRUG Active High Other MD TERA-POT 4-08 Anderso CLAVULAN 00:00: n ATE 00 SULFA Drug Active High 2012- MD (SULFONA Class 4-08 Anderso MIDE 00:00: n ANTIBIOT 00 ICS) LEVOFLOX DRUG Active 2012- MD ACIN INGREDI 4-08 Anderso 00:00: n 00 AMOXICIL DRUG Active High Other 2012- MD TERA-POT 4-08 Anderso CLAVULAN 00:00: n ATE 00 AMOXICIL DRUG Active High Other 2012- MD TERA-POT 4-08 Anderso CLAVULAN 00:00: n ATE 00 SULFA Drug Active High 2012- MD (SULFONA Class 4-08 Anderso MIDE 00:00: n ANTIBIOT 00 ICS) LEVOFLOX DRUG Active 2012- MD ACIN INGREDI 4-08 Anderso 00:00: n 00 AMOXICIL DRUG Active High Other 2012- MD TERA-POT 4-08 Anderso CLAVULAN 00:00: n ATE 00 SULFA Drug Active High 2012- MD (SULFONA Class 4-08 Anderso MIDE 00:00: n ANTIBIOT 00 ICS) LEVOFLOX DRUG Active MD ACIN INGREDI 4-08 Anderso 00:00: n 00 AMOXICIL DRUG Active High Other MD TERA-POT 4-08 Anderso CLAVULAN 00:00: n ATE 00 SULFA Drug Active High MD (SULFONA Class 4-08 Anderso MIDE 00:00: n ANTIBIOT 00 ICS) LEVOFLOX DRUG Active MD ACIN INGREDI 4-08 Anderso 00:00: n 00 SULFA Drug Active High MD (SULFONA Class 4-08 Anderso MIDE 00:00: n ANTIBIOT 00 ICS) AMOXICIL DRUG Active High Other 2012- MD TERA-POT 4-08 Anderso CLAVULAN 00:00: n ATE 00 SULFA Drug Active High 2012- MD (SULFONA Class 4-08 Anderso MIDE 00:00: n ANTIBIOT 00 ICS) LEVOFLOX DRUG Active 2012- MD ACIN INGREDI 4-08 Anderso 00:00: n 00 AMOXICIL DRUG Active High Other 2012- MD TERA-POT 4-08 Anderso CLAVULAN 00:00: n ATE 00 SULFA Drug Active High 2012- MD (SULFONA Class 4-08 Anderso MIDE 00:00: n ANTIBIOT 00 ICS) LEVOFLOX DRUG Active 2012- MD ACIN INGREDI 4-08 Anderso 00:00: n 00 AMOXICIL DRUG Active High Other 2012- MD TERA-POT 4-08 Anderso CLAVULAN 00:00: n ATE 00 LEVOFLOX DRUG Active 2012- MD ACIN INGREDI 4-08 Anderso 00:00: n 00 SULFA Drug Active High MD (SULFONA Class 4-08 Anderso MIDE 00:00: n ANTIBIOT 00 ICS) LEVOFLOX DRUG Active MD ACIN INGREDI 4-08 Anderso 00:00: n 00 AMOXICIL DRUG Active High Other MD TERA-POT 4-08 Anderso CLAVULAN 00:00: n ATE 00 SULFA Drug Active High MD (SULFONA Class 4-08 Anderso MIDE 00:00: n ANTIBIOT 00 ICS) LEVOFLOX DRUG Active MD ACIN INGREDI 4-08 Anderso 00:00: n 00 AMOXICIL DRUG Active High Other MD TERA-POT 4-08 Anderso CLAVULAN 00:00: n ATE 00 SULFA Drug Active High MD (SULFONA Class 4-08 Anderso MIDE 00:00: n ANTIBIOT 00 ICS) LEVOFLOX DRUG Active MD ACIN INGREDI 4-08 Anderso 00:00: n 00 AMOXICIL DRUG Active High Other MD TERA-POT 4-08 Anderso CLAVULAN 00:00: n ATE 00 SULFA Drug Active High MD (SULFONA Class 4-08 Anderso MIDE 00:00: n ANTIBIOT 00 ICS) LEVOFLOX DRUG Active MD ACIN INGREDI 4-08 Anderso 00:00: n 00 AMOXICIL DRUG Active Unknown-Cmnt Un dequan TERA-POT 4-08 ity of CLAVULAN 00:00: [place] ATE 00 [facility] AMOXICIL DRUG Active High Other MD TERA-POT 4-08 Anderso CLAVULAN 00:00: n ATE 00 SULFA Drug Active High MD (SULFONA Class 4-08 Anderso MIDE 00:00: n ANTIBIOT 00 ICS) LEVOFLOX DRUG Active MD ACIN INGREDI 4-08 Anderso 00:00: n 00 AMOXICIL DRUG Active High Other MD TERA-POT 4-08 Anderso CLAVULAN 00:00: n ATE 00 AMOXICIL DRUG Active High Other MD TERA-POT 4-08 Anderso CLAVULAN 00:00: n ATE 00 SULFA Drug Active High MD (SULFONA Class 4-08 Anderso MIDE 00:00: n ANTIBIOT 00 ICS) LEVOFLOX DRUG Active 2012- MD ACIN INGREDI 4-08 Anderso 00:00: n 00 AMOXICIL DRUG Active High Other 2012- MD TERA-POT 4-08 Anderso CLAVULAN 00:00: n ATE 00 SULFA Drug Active High MD (SULFONA Class 4-08 Anderso MIDE 00:00: n ANTIBIOT 00 ICS) LEVOFLOX DRUG Active MD ACIN INGREDI 4-08 Anderso 00:00: n 00 LEVOFLOX DRUG Active MD ACIN INGREDI 4-08 Anderso 00:00: n 00 AMOXICIL DRUG Active High Other MD TERA-POT 4-08 Anderso CLAVULAN 00:00: n ATE 00 SULFA Drug Active High MD (SULFONA Class 4-08 Anderso MIDE 00:00: n ANTIBIOT 00 ICS) SULFA Drug Active High MD (SULFONA Class 4-08 Anderso MIDE 00:00: n ANTIBIOT 00 ICS) LEVOFLOX DRUG Active MD ACIN INGREDI 4-08 Anderso 00:00: n 00 AMOXICIL DRUG Active High Other MD TERA-POT 4-08 Anderso CLAVULAN 00:00: n ATE 00 SULFA Drug Active High MD (SULFONA Class 4-08 Anderso MIDE 00:00: n ANTIBIOT 00 ICS) LEVOFLOX DRUG Active MD ACIN INGREDI 4-08 Anderso 00:00: n 00 AMOXICIL DRUG Active High Other MD TERA-POT 4-08 Anderso CLAVULAN 00:00: n ATE 00 SULFA Drug Active High MD (SULFONA Class 4-08 Anderso MIDE 00:00: n ANTIBIOT 00 ICS) LEVOFLOX DRUG Active Unknown-Cmnt Un dequan ACIN INGREDI 4-08 ity of 00:00: [place] [address] [place] [address] LEVOFLOX DRUG Active MD ACIN INGREDI 408 Anderso 00:00: n 00 LEVOFLOX DRUG Active MD ACIN INGREDI 408 Anderso 00:00: n 00 AMOXICIL DRUG Active High Other MD TERA-POT 4-08 Anderso CLAVULAN 00:00: n ATE 00 SULFA Drug Active High MD (SULFONA Class 4-08 Anderso MIDE 00:00: n ANTIBIOT 00 ICS) LEVOFLOX DRUG Active MD ACIN INGREDI 4-08 Anderso 00:00: n 00 AMOXICIL DRUG Active High Other MD TERA-POT 4-08 Anderso CLAVULAN 00:00: n ATE 00 SULFA Drug Active High MD (SULFONA Class 4-08 Anderso MIDE 00:00: n ANTIBIOT 00 ICS) LEVOFLOX DRUG Active MD ACIN INGREDI 4-08 Anderso 00:00: n 00 AMOXICIL DRUG Active High Other MD TERA-POT 4-08 Anderso CLAVULAN 00:00: n ATE 00 SULFA Drug Active High MD (SULFONA Class 4-08 Anderso MIDE 00:00: n ANTIBIOT 00 ICS) IODINE Drug Active Unknown-Cmnt Univ ers AND Class 4-08 ity of IODIDE 00:00: [place] CONTAINI 00 Medical [facility] PRODUCTS LEVOFLOX DRUG Active MD ACIN INGREDI 4-08 Anderso 00:00: n 00 AMOXICIL DRUG Active High Other MD TERA-POT 4-08 Anderso CLAVULAN 00:00: n ATE 00 SULFA Drug Active High MD (SULFONA Class 4-08 Anderso MIDE 00:00: n ANTIBIOT 00 ICS) LEVOFLOX DRUG Active MD ACIN INGREDI 4-08 Anderso 00:00: n 00 AMOXICIL DRUG Active High Other MD TERA-POT 4-08 Anderso CLAVULAN 00:00: n ATE 00 AMOXICIL DRUG Active High Other MD TERA-POT 4-08 Anderso CLAVULAN 00:00: n ATE 00 SULFA Drug Active High MD (SULFONA Class 4-08 Anderso MIDE 00:00: n ANTIBIOT 00 ICS) LEVOFLOX DRUG Active MD ACIN INGREDI 4-08 Anderso 00:00: n 00 AMOXICIL DRUG Active High Other 2013-0 MD TERA-POT 4-08 Anderso CLAVULAN 00:00: n ATE 00 SULFA Drug Active High 2012- MD (SULFONA Class 4-08 Anderso MIDE 00:00: n ANTIBIOT 00 ICS) LEVOFLOX DRUG Active MD ACIN INGREDI 4-08 Anderso 00:00: n 00 AMOXICIL DRUG Active High Other 2012- MD TERA-POT 4-08 Anderso CLAVULAN 00:00: n ATE 00 SULFA Drug Active High MD (SULFONA Class 4-08 Anderso MIDE 00:00: n ANTIBIOT 00 ICS) SULFA Drug Active High MD (SULFONA Class 4-08 Anderso MIDE 00:00: n ANTIBIOT 00 ICS) LEVOFLOX DRUG Active MD ACIN INGREDI 4-08 Anderso 00:00: n 00 AMOXICIL DRUG Active High Other MD TERA-POT 4-08 Anderso CLAVULAN 00:00: n ATE 00 SULFA Drug Active High MD (SULFONA Class 4-08 Anderso MIDE 00:00: n ANTIBIOT 00 ICS) LEVOFLOX DRUG Active MD ACIN INGREDI 4-08 Anderso 00:00: n 00 AMOXICIL DRUG Active High Other MD TERA-POT 4-08 Anderso CLAVULAN 00:00: n ATE 00 SULFA Drug Active High MD (SULFONA Class 4-08 Anderso MIDE 00:00: n ANTIBIOT 00 ICS) SULFA Drug Active Unknown-Cmnt Univ ers (SULFONA Class 4-08 ity of MIDE 00:00: [place] ANTIBIOT 00 Medical ICS) Branch LEVOFLOX DRUG Active MD ACIN INGREDI 4-08 Anderso 00:00: n 00 LEVOFLOX DRUG Active MD ACIN INGREDI 4-08 Anderso 00:00: n 00 AMOXICIL DRUG Active High Other MD TERA-POT 4-08 Anderso CLAVULAN 00:00: n ATE 00 SULFA Drug Active High MD (SULFONA Class 4-08 Anderso MIDE 00:00: n ANTIBIOT 00 ICS) LEVOFLOX DRUG Active 2012- MD ACIN INGREDI 4-08 Anderso 00:00: n 00 AMOXICIL DRUG Active High Other MD TERA-POT 4-08 Anderso CLAVULAN 00:00: n ATE 00 SULFA Drug Active High 2012- MD (SULFONA Class 4-08 Anderso MIDE 00:00: n ANTIBIOT 00 ICS) LEVOFLOX DRUG Active 2012- MD ACIN INGREDI 4-08 Anderso 00:00: n 00 AMOXICIL DRUG Active High Other MD TERA-POT 4-08 Anderso CLAVULAN 00:00: n ATE 00 SULFA Drug Active High MD (SULFONA Class 4-08 Anderso MIDE 00:00: n ANTIBIOT 00 ICS) LEVOFLOX DRUG Active MD ACIN INGREDI 4-08 Anderso 00:00: n 00 AMOXICIL DRUG Active High Other MD TERA-POT 4-08 Anderso CLAVULAN 00:00: n ATE 00 SULFA Drug Active High MD (SULFONA Class 4-08 Anderso MIDE 00:00: n ANTIBIOT 00 ICS) LEVOFLOX DRUG Active MD ACIN INGREDI 4-08 Anderso 00:00: n 00 AMOXICIL DRUG Active High Other MD TERA-POT 4-08 Anderso CLAVULAN 00:00: n ATE 00 SULFA Drug Active High MD (SULFONA Class 4-08 Anderso MIDE 00:00: n ANTIBIOT 00 ICS) AMOXICIL DRUG Active High Other MD TERA-POT 4-08 Anderso CLAVULAN 00:00: n ATE 00 LEVOFLOX DRUG Active MD ACIN INGREDI 4-08 Anderso 00:00: n 00 AMOXICIL DRUG Active High Other MD TERA-POT 4-08 Anderso CLAVULAN 00:00: n ATE 00 SULFA Drug Active High MD (SULFONA Class 4-08 Anderso MIDE 00:00: n ANTIBIOT 00 ICS) Iodine Propensi Active Unknown - Throat Unive rs And ty to See comments 09-04 closing ity of Iodide adverse 00:00: [place] Containi reaction 00 Medica l [facility] s Branch Products LEVOFLOX DRUG Active MD ACIN INGREDI 4-08 Anderso 00:00: n 00 AMOXICIL DRUG Active High Other 2012- MD TERA-POT 4-08 Anderso CLAVULAN 00:00: n ATE 00 SULFA Drug Active High 2012- MD (SULFONA Class 4-08 Anderso MIDE 00:00: n ANTIBIOT 00 ICS) LEVOFLOX DRUG Active 2012- MD ACIN INGREDI 4-08 Anderso 00:00: n 00 AMOXICIL DRUG Active High Other MD ETRA-POT 4-08 Anderso CLAVULAN 00:00: n ATE 00 SULFA Drug Active High MD (SULFONA Class 4-08 Anderso MIDE 00:00: n ANTIBIOT 00 ICS) SULFA Drug Active High MD (SULFONA Class 4-08 Anderso MIDE 00:00: n ANTIBIOT 00 ICS) LEVOFLOX DRUG Active MD ACIN INGREDI 4-08 Anderso 00:00: n 00 AMOXICIL DRUG Active High Other MD TERA-POT 4-08 Anderso CLAVULAN 00:00: n ATE 00 SULFA Drug Active High MD (SULFONA Class 4-08 Anderso MIDE 00:00: n ANTIBIOT 00 ICS) LEVOFLOX DRUG Active MD ACIN INGREDI 4-08 Anderso 00:00: n 00 AMOXICIL DRUG Active High Other MD TERA-POT 4-08 Anderso CLAVULAN 00:00: n ATE 00 SULFA Drug Active High MD (SULFONA Class 4-08 Anderso MIDE 00:00: n ANTIBIOT 00 ICS) LEVOFLOX DRUG Active MD ACIN INGREDI 4-08 Anderso 00:00: n 00 LEVOFLOX DRUG Active MD ACIN INGREDI 4-08 Anderso 00:00: n 00 AMOXICIL DRUG Active High Other 2012- MD TERA-POT 4-08 Anderso CLAVULAN 00:00: n ATE 00 SULFA Drug Active High 2012- MD (SULFONA Class 4-08 Anderso MIDE 00:00: n ANTIBIOT 00 ICS) LEVOFLOX DRUG Active 2012- MD ACIN INGREDI 4-08 Anderso 00:00: n 00 AMOXICIL DRUG Active High Other MD TERA-POT 4-08 Anderso CLAVULAN 00:00: n ATE 00 SULFA Drug Active High 2012- MD (SULFONA Class 4-08 Anderso MIDE 00:00: n ANTIBIOT 00 ICS) LEVOFLOX DRUG Active 2012- MD ACIN INGREDI 4-08 Anderso 00:00: n 00 AMOXICIL DRUG Active High Other MD TERA-POT 4-08 Anderso CLAVULAN 00:00: n ATE 00 SULFA Drug Active High 2012- MD (SULFONA Class 4-08 Anderso MIDE 00:00: n ANTIBIOT 00 ICS) LEVOFLOX DRUG Active 2012- MD ACIN INGREDI 4-08 Anderso 00:00: n 00 AMOXICIL DRUG Active High Other MD TERA-POT 4-08 Anderso CLAVULAN 00:00: n ATE 00 SULFA Drug Active High MD (SULFONA Class 4-08 Anderso MIDE 00:00: n ANTIBIOT 00 ICS) LEVOFLOX DRUG Active MD ACIN INGREDI 4-08 Anderso 00:00: n 00 AMOXICIL DRUG Active High Other 2012- MD TERA-POT 4-08 Anderso CLAVULAN 00:00: n ATE 00 AMOXICIL DRUG Active High Other MD TERA-POT 4-08 Anderso CLAVULAN 00:00: n ATE 00 SULFA Drug Active High 2012- MD (SULFONA Class 4-08 Anderso MIDE 00:00: n ANTIBIOT 00 ICS) LEVOFLOX DRUG Active 2012- MD ACIN INGREDI 4-08 Anderso 00:00: n 00 AMOXICIL DRUG Active High Other 2012- MD TERA-POT 4-08 Anderso CLAVULAN 00:00: n ATE 00 SULFA Drug Active High 2012- MD (SULFONA Class 4-08 Anderso MIDE 00:00: n ANTIBIOT 00 ICS) LEVOFLOX DRUG Active 2012- MD ACIN INGREDI 4-08 Anderso 00:00: n 00 AMOXICIL DRUG Active High Other 2012- MD TERA-POT 4-08 Anderso CLAVULAN 00:00: n ATE 00 SULFA Drug Active High 2012- MD (SULFONA Class 4-08 Anderso MIDE 00:00: n ANTIBIOT 00 ICS) SULFA Drug Active High MD (SULFONA Class 4-08 Anderso MIDE 00:00: n ANTIBIOT 00 ICS) LEVOFLOX DRUG Active 2012- MD ACIN INGREDI 4-08 Anderso 00:00: n 00 AMOXICIL DRUG Active High Other 2012- MD TERA-POT 4-08 Anderso CLAVULAN 00:00: n ATE 00 SULFA Drug Active High MD (SULFONA Class 4-08 Anderso MIDE 00:00: n ANTIBIOT 00 ICS) Iodine Propensi Active Unknown - Throat Unive rs And ty to See comments 09-04 closing ity of Iodide adverse 00:00: [place] Containi reaction 00 [facility]ica l [facility] Branch Products LEVOFLOX DRUG Active MD ACIN INGREDI 4-08 Anderso 00:00: n 00 AMOXICIL DRUG Active High Other MD TERA-POT 4-08 Anderso CLAVULAN 00:00: n ATE 00 SULFA Drug Active High MD (SULFONA Class 4-08 Anderso MIDE 00:00: n ANTIBIOT 00 ICS) LEVOFLOX DRUG Active MD ACIN INGREDI 4-08 Anderso 00:00: n 00 LEVOFLOX DRUG Active MD ACIN INGREDI 4-08 Anderso 00:00: n 00 AMOXICIL DRUG Active High Other 2012- MD TERA-POT 4-08 Anderso CLAVULAN 00:00: n ATE 00 SULFA Drug Active High MD (SULFONA Class 4-08 Anderso MIDE 00:00: n ANTIBIOT 00 ICS) LEVOFLOX DRUG Active MD ACIN INGREDI 4-08 Anderso 00:00: n 00 AMOXICIL DRUG Active High Other MD TERA-POT 4-08 Anderso CLAVULAN 00:00: n ATE 00 SULFA Drug Active High MD (SULFONA Class 4-08 Anderso MIDE 00:00: n ANTIBIOT 00 ICS) Sulfa Propensi Active Unknown - psychosis Un dequan (Sulfona ty to See comments 09-04 it y of mide adverse 00:00: [place] Antibiot reaction 00 Medica l ics) s Branch LEVOFLOX DRUG Active MD ACIN INGREDI 4-08 Anderso 00:00: n 00 AMOXICIL DRUG Active High Other MD TERA-POT 4-08 Anderso CLAVULAN 00:00: n ATE 00 SULFA Drug Active High MD (SULFONA Class 4-08 Anderso MIDE 00:00: n ANTIBIOT 00 ICS) LEVOFLOX DRUG Active 2012- MD ACIN INGREDI 4-08 Anderso 00:00: n 00 AMOXICIL DRUG Active High Other MD TERA-POT 4-08 Anderso CLAVULAN 00:00: n ATE 00 SULFA Drug Active High MD (SULFONA Class 4-08 Anderso MIDE 00:00: n ANTIBIOT 00 ICS) LEVOFLOX DRUG Active MD ACIN INGREDI 4-08 Anderso 00:00: n 00 AMOXICIL DRUG Active High Other MD TERA-POT 4-08 Anderso CLAVULAN 00:00: n ATE 00 SULFA Drug Active High MD (SULFONA Class 4-08 Anderso MIDE 00:00: n ANTIBIOT 00 ICS) AMOXICIL DRUG Active High Other MD TERA-POT 4-08 Anderso CLAVULAN 00:00: n ATE 00 LEVOFLOX DRUG Active MD ACIN INGREDI 4-08 Anderso 00:00: n 00 AMOXICIL DRUG Active High Other MD TERA-POT 4-08 Anderso CLAVULAN 00:00: n ATE 00 SULFA Drug Active High MD (SULFONA Class 4-08 Anderso MIDE 00:00: n ANTIBIOT 00 ICS) LEVOFLOX DRUG Active MD ACIN INGREDI 4-08 Anderso 00:00: n 00 AMOXICIL DRUG Active High Other MD TERA-POT 4-08 Anderso CLAVULAN 00:00: n ATE 00 SULFA Drug Active High 2012- MD (SULFONA Class 4-08 Anderso MIDE 00:00: n ANTIBIOT 00 ICS) LEVOFLOX DRUG Active 2012- MD ACIN INGREDI 4-08 Anderso 00:00: n 00 SULFA Drug Active High 2012- MD (SULFONA Class 4-08 Anderso MIDE 00:00: n ANTIBIOT 00 ICS) AMOXICIL DRUG Active High Other MD TERA-POT 4-08 Anderso CLAVULAN 00:00: n ATE 00 SULFA Drug Active High MD (SULFONA Class 4-08 Anderso MIDE 00:00: n ANTIBIOT 00 ICS) Levoflox Propensi Active Unknown - psychosis Univers acin ty to See comments 08 ity of adverse 00:00: [place] reaction 00 Medical s Branch LEVOFLOX DRUG Active MD ACIN INGREDI 4-08 Anderso 00:00: n 00 AMOXICIL DRUG Active High Other MD TERA-POT 4-08 Anderso CLAVULAN 00:00: n ATE 00 SULFA Drug Active High MD (SULFONA Class 4-08 Anderso MIDE 00:00: n ANTIBIOT 00 ICS) LEVOFLOX DRUG Active MD ACIN INGREDI 4-08 Anderso 00:00: n 00 AMOXICIL DRUG Active High Other MD TERA-POT 4-08 Anderso CLAVULAN 00:00: n ATE 00 LEVOFLOX DRUG Active MD ACIN INGREDI 4-08 Anderso 00:00: n 00 SULFA Drug Active High MD (SULFONA Class 4-08 Anderso MIDE 00:00: n ANTIBIOT 00 ICS) LEVOFLOX DRUG Active MD ACIN INGREDI 4-08 Anderso 00:00: n 00 AMOXICIL DRUG Active High Other MD TERA-POT 4-08 Anderso CLAVULAN 00:00: n ATE 00 SULFA Drug Active High MD (SULFONA Class 4-08 Anderso MIDE 00:00: n ANTIBIOT 00 ICS) LEVOFLOX DRUG Active MD ACIN INGREDI 4-08 Anderso 00:00: n 00 AMOXICIL DRUG Active High Other MD TERA-POT 4-08 Anderso CLAVULAN 00:00: n ATE 00 SULFA Drug Active High MD (SULFONA Class 4-08 Anderso MIDE 00:00: n ANTIBIOT 00 ICS) LEVOFLOX DRUG Active MD ACIN INGREDI 4-08 Anderso 00:00: n 00 AMOXICIL DRUG Active High Other MD TERA-POT 4-08 Anderso CLAVULAN 00:00: n ATE 00 SULFA Drug Active High 2012- MD (SULFONA Class 4-08 Anderso MIDE 00:00: n ANTIBIOT 00 ICS) LEVOFLOX DRUG Active 2012- MD ACIN INGREDI 4-08 Anderso 00:00: n 00 AMOXICIL DRUG Active High Other MD TERA-POT 4-08 Anderso CLAVULAN 00:00: n ATE 00 SULFA Drug Active High MD (SULFONA Class 4-08 Anderso MIDE 00:00: n ANTIBIOT 00 ICS) AMOXICIL DRUG Active High Other MD TERA-POT 4-08 Anderso CLAVULAN 00:00: n ATE 00 LEVOFLOX DRUG Active MD ACIN INGREDI 4-08 Anderso 00:00: n 00 AMOXICIL DRUG Active High Other MD TERA-POT 4-08 Anderso CLAVULAN 00:00: n ATE 00 SULFA Drug Active High MD (SULFONA Class 4-08 Anderso MIDE 00:00: n ANTIBIOT 00 ICS) LEVOFLOX DRUG Active MD ACIN INGREDI 4-08 Anderso 00:00: n 00 AMOXICIL DRUG Active High Other MD TERA-POT 4-08 Anderso CLAVULAN 00:00: n ATE 00 SULFA Drug Active High MD (SULFONA Class 4-08 Anderso MIDE 00:00: n ANTIBIOT 00 ICS) LEVOFLOX DRUG Active 2012- MD ACIN INGREDI 4-08 Anderso 00:00: n 00 AMOXICIL DRUG Active High Other MD TERA-POT 4-08 Anderso CLAVULAN 00:00: n ATE 00 SULFA Drug Active High MD (SULFONA Class 4-08 Anderso MIDE 00:00: n ANTIBIOT 00 ICS) SULFA Drug Active High MD (SULFONA Class 4-08 Anderso MIDE 00:00: n ANTIBIOT 00 ICS) LEVOFLOX DRUG Active 2012- MD ACIN INGREDI 4-08 Anderso 00:00: n 00 AMOXICIL DRUG Active High Other MD TERA-POT 4-08 Anderso CLAVULAN 00:00: n ATE 00 SULFA Drug Active High MD (SULFONA Class 4-08 Anderso MIDE 00:00: n ANTIBIOT 00 ICS) LEVOFLOX DRUG Active 2012- MD ACIN INGREDI 4-08 Anderso 00:00: n 00 AMOXICIL DRUG Active High Other 2012- MD TERA-POT 4-08 Anderso CLAVULAN 00:00: n ATE 00 LEVOFLOX DRUG Active 2012- MD ACIN INGREDI 4-08 Anderso 00:00: n 00 SULFA Drug Active High 2012- MD (SULFONA Class 4-08 Anderso MIDE 00:00: n ANTIBIOT 00 ICS) LEVOFLOX DRUG Active 2012- MD ACIN INGREDI 4-08 Anderso 00:00: n 00 AMOXICIL DRUG Active High Other 2012- MD TERA-POT 4-08 Anderso CLAVULAN 00:00: n ATE 00 SULFA Drug Active High 2012- MD (SULFONA Class 4-08 Anderso MIDE 00:00: n ANTIBIOT 00 ICS) LEVOFLOX DRUG Active MD ACIN INGREDI 4-08 Anderso 00:00: n 00 AMOXICIL DRUG Active High Other MD TERA-POT 4-08 Anderso CLAVULAN 00:00: n ATE 00 SULFA Drug Active High 2012- MD (SULFONA Class 4-08 Anderso MIDE 00:00: n ANTIBIOT 00 ICS) LEVOFLOX DRUG Active 2012- MD ACIN INGREDI 4-08 Anderso 00:00: n 00 AMOXICIL DRUG Active High Other 2012- MD TERA-POT 4-08 Anderso CLAVULAN 00:00: n ATE 00 AMOXICIL DRUG Active High Other 2012- MD TERA-POT 4-08 Anderso CLAVULAN 00:00: n ATE 00 SULFA Drug Active High 2012- MD (SULFONA Class 4-08 Anderso MIDE 00:00: n ANTIBIOT 00 ICS) LEVOFLOX DRUG Active 2012- MD ACIN INGREDI 4-08 Anderso 00:00: n 00 AMOXICIL DRUG Active High Other 2012- MD TERA-POT 4-08 Anderso CLAVULAN 00:00: n ATE 00 SULFA Drug Active High 2012- MD (SULFONA Class 4-08 Anderso MIDE 00:00: n ANTIBIOT 00 ICS) LEVOFLOX DRUG Active 2012- MD ACIN INGREDI 4-08 Anderso 00:00: n 00 AMOXICIL DRUG Active High Other 2012- MD TERA-POT 4-08 Anderso CLAVULAN 00:00: n ATE 00 AMOXICIL DRUG Active High Other 2012- MD TERA-POT 4-08 Anderso CLAVULAN 00:00: n ATE 00 SULFA Drug Active High MD (SULFONA Class 4-08 Anderso MIDE 00:00: n ANTIBIOT 00 ICS) LEVOFLOX DRUG Active 2012- MD ACIN INGREDI 4-08 Anderso 00:00: n 00 AMOXICIL DRUG Active High Other MD TERA-POT 4-08 Anderso CLAVULAN 00:00: n ATE 00 SULFA Drug Active High MD (SULFONA Class 4-08 Anderso MIDE 00:00: n ANTIBIOT 00 ICS) LEVOFLOX DRUG Active MD ACIN INGREDI 4-08 Anderso 00:00: n 00 AMOXICIL DRUG Active High Other MD TERA-POT 4-08 Anderso CLAVULAN 00:00: n ATE 00 SULFA Drug Active High MD (SULFONA Class 4-08 Anderso MIDE 00:00: n ANTIBIOT 00 ICS) SULFA Drug Active High MD (SULFONA Class 4-08 Anderso MIDE 00:00: n ANTIBIOT 00 ICS) LEVOFLOX DRUG Active MD ACIN INGREDI 4-08 Anderso 00:00: n 00 AMOXICIL DRUG Active High Other MD TERA-POT 4-08 Anderso CLAVULAN 00:00: n ATE 00 SULFA Drug Active High MD (SULFONA Class 4-08 Anderso MIDE 00:00: n ANTIBIOT 00 ICS) LEVOFLOX DRUG Active 2012- MD ACIN INGREDI 4-08 Anderso 00:00: n 00 AMOXICIL DRUG Active High Other 2012- MD TERA-POT 4-08 Anderso CLAVULAN 00:00: n ATE 00 LEVOFLOX DRUG Active 2012- MD ACIN INGREDI 4-08 Anderso 00:00: n 00 SULFA Drug Active High MD (SULFONA Class 4-08 Anderso MIDE 00:00: n ANTIBIOT 00 ICS) LEVOFLOX DRUG Active 2012- MD ACIN INGREDI 4-08 Anderso 00:00: n 00 AMOXICIL DRUG Active High Other MD TERA-POT 4-08 Anderso CLAVULAN 00:00: n ATE 00 SULFA Drug Active High MD (SULFONA Class 4-08 Anderso MIDE 00:00: n ANTIBIOT 00 ICS) LEVOFLOX DRUG Active MD ACIN INGREDI 4-08 Anderso 00:00: n 00 AMOXICIL DRUG Active High Other MD TERA-POT 4-08 Anderso CLAVULAN 00:00: n ATE 00 SULFA Drug Active High MD (SULFONA Class 4-08 Anderso MIDE 00:00: n ANTIBIOT 00 ICS) LEVOFLOX DRUG Active MD ACIN INGREDI 4-08 Anderso 00:00: n 00 AMOXICIL DRUG Active High Other MD TERA-POT 4-08 Anderso CLAVULAN 00:00: n ATE 00 SULFA Drug Active High MD (SULFONA Class 4-08 Anderso MIDE 00:00: n ANTIBIOT 00 ICS) LEVOFLOX DRUG Active 2012- MD ACIN INGREDI 4-08 Anderso 00:00: n 00 AMOXICIL DRUG Active High Other MD TERA-POT 4-08 Anderso CLAVULAN 00:00: n ATE 00 SULFA Drug Active High MD (SULFONA Class 4-08 Anderso MIDE 00:00: n ANTIBIOT 00 ICS) LEVOFLOX DRUG Active MD ACIN INGREDI 4-08 Anderso 00:00: n 00 AMOXICIL DRUG Active High Other MD TERA-POT 4-08 Anderso CLAVULAN 00:00: n ATE 00 AMOXICIL DRUG Active High Other 2012- MD TERA-POT 4-08 Anderso CLAVULAN 00:00: n ATE 00 SULFA Drug Active High 2012- MD (SULFONA Class 4-08 Anderso MIDE 00:00: n ANTIBIOT 00 ICS) LEVOFLOX DRUG Active 2012- MD ACIN INGREDI 4-08 Anderso 00:00: n 00 AMOXICIL DRUG Active High Other MD TERA-POT 4-08 Anderso CLAVULAN 00:00: n ATE 00 SULFA Drug Active High MD (SULFONA Class 4-08 Anderso MIDE 00:00: n ANTIBIOT 00 ICS) LEVOFLOX DRUG Active 2012- MD ACIN INGREDI 4-08 Anderso 00:00: n 00 AMOXICIL DRUG Active High Other MD TERA-POT 4-08 Anderso CLAVULAN 00:00: n ATE 00 SULFA Drug Active High MD (SULFONA Class 4-08 Anderso MIDE 00:00: n ANTIBIOT 00 ICS) SULFA Drug Active High MD (SULFONA Class 4-08 Anderso MIDE 00:00: n ANTIBIOT 00 ICS) LEVOFLOX DRUG Active MD ACIN INGREDI 4-08 Anderso 00:00: n 00 AMOXICIL DRUG Active High Other MD TERA-POT 4-08 Anderso CLAVULAN 00:00: n ATE 00 SULFA Drug Active High MD (SULFONA Class 4-08 Anderso MIDE 00:00: n ANTIBIOT 00 ICS) LEVOFLOX DRUG Active MD ACIN INGREDI 4-08 Anderso 00:00: n 00 AMOXICIL DRUG Active High Other MD TERA-POT 4-08 Anderso CLAVULAN 00:00: n ATE 00 SULFA Drug Active High MD (SULFONA Class 4-08 Anderso MIDE 00:00: n ANTIBIOT 00 ICS) LEVOFLOX DRUG Active MD ACIN INGREDI 4-08 Anderso 00:00: n 00 LEVOFLOX DRUG Active MD ACIN INGREDI 4-08 Anderso 00:00: n 00 AMOXICIL DRUG Active High Other MD TERA-POT 4-08 Anderso CLAVULAN 00:00: n ATE 00 SULFA Drug Active High MD (SULFONA Class 4-08 Anderso MIDE 00:00: n ANTIBIOT 00 ICS) LEVOFLOX DRUG Active 2012- MD ACIN INGREDI 4-08 Anderso 00:00: n 00 AMOXICIL DRUG Active High Other MD TERA-POT 4-08 Anderso CLAVULAN 00:00: n ATE 00 SULFA Drug Active High 2012- MD (SULFONA Class 4-08 Anderso MIDE 00:00: n ANTIBIOT 00 ICS) LEVOFLOX DRUG Active 2012- MD ACIN INGREDI 4-08 Anderso 00:00: n 00 AMOXICIL DRUG Active High Other 2012- MD TERA-POT 4-08 Anderso CLAVULAN 00:00: n ATE 00 SULFA Drug Active High MD (SULFONA Class 4-08 Anderso MIDE 00:00: n ANTIBIOT 00 ICS) LEVOFLOX DRUG Active 2012- MD ACIN INGREDI 4-08 Anderso 00:00: n 00 AMOXICIL DRUG Active High Other MD TERA-POT 4-08 Anderso CLAVULAN 00:00: n ATE 00 SULFA Drug Active High MD (SULFONA Class 4-08 Anderso MIDE 00:00: n ANTIBIOT 00 ICS) LEVOFLOX DRUG Active MD ACIN INGREDI 4-08 Anderso 00:00: n 00 AMOXICIL DRUG Active High Other 2012- MD TERA-POT 4-08 Anderso CLAVULAN 00:00: n ATE 00 AMOXICIL DRUG Active High Other MD TERA-POT 4-08 Anderso CLAVULAN 00:00: n ATE 00 SULFA Drug Active High MD (SULFONA Class 4-08 Anderso MIDE 00:00: n ANTIBIOT 00 ICS) LEVOFLOX DRUG Active 2012- MD ACIN INGREDI 4-08 Anderso 00:00: n 00 AMOXICIL DRUG Active High Other 2012- MD TERA-POT 4-08 Anderso CLAVULAN 00:00: n ATE 00 SULFA Drug Active High 2012- MD (SULFONA Class 4-08 Anderso MIDE 00:00: n ANTIBIOT 00 ICS) LEVOFLOX DRUG Active 2012- MD ACIN INGREDI 4-08 Anderso 00:00: n 00 AMOXICIL DRUG Active High Other 2012- MD TERA-POT 4-08 Anderso CLAVULAN 00:00: n ATE 00 SULFA Drug Active High 2012- MD (SULFONA Class 4-08 Anderso MIDE 00:00: n ANTIBIOT 00 ICS) SULFA Drug Active High 2012- MD (SULFONA Class 4-08 Anderso MIDE 00:00: n ANTIBIOT 00 ICS) LEVOFLOX DRUG Active 2012- MD ACIN INGREDI 4-08 Anderso 00:00: n 00 AMOXICIL DRUG Active High Other 2012- MD TERA-POT 4-08 Anderso CLAVULAN 00:00: n ATE 00 SULFA Drug Active High MD (SULFONA Class 4-08 Anderso MIDE 00:00: n ANTIBIOT 00 ICS) LEVOFLOX DRUG Active 2012- MD ACIN INGREDI 4-08 Anderso 00:00: n 00 AMOXICIL DRUG Active High Other MD TERA-POT 4-08 Anderso CLAVULAN 00:00: n ATE 00 LEVOFLOX DRUG Active MD ACIN INGREDI 4-08 Anderso 00:00: n 00 SULFA Drug Active High MD (SULFONA Class 4-08 Anderso MIDE 00:00: n ANTIBIOT 00 ICS) LEVOFLOX DRUG Active MD ACIN INGREDI 4-08 Anderso 00:00: n 00 AMOXICIL DRUG Active High Other MD TERA-POT 4-08 Anderso CLAVULAN 00:00: n ATE 00 SULFA Drug Active High MD (SULFONA Class 4-08 Anderso MIDE 00:00: n ANTIBIOT 00 ICS) SULFA Drug Active High MD (SULFONA Class 4-08 Anderso MIDE 00:00: n ANTIBIOT 00 ICS) LEVOFLOX DRUG Active 2012- MD ACIN INGREDI 4-08 Anderso 00:00: n 00 AMOXICIL DRUG Active High Other 2012- MD TERA-POT 4-08 Anderso CLAVULAN 00:00: n ATE 00 SULFA Drug Active High MD (SULFONA Class 4-08 Anderso MIDE 00:00: n ANTIBIOT 00 ICS) LEVOFLOX DRUG Active 2012- MD ACIN INGREDI 4-08 Anderso 00:00: n 00 AMOXICIL DRUG Active High Other 2012- MD TERA-POT 4-08 Anderso CLAVULAN 00:00: n ATE 00 SULFA Drug Active High 2012- MD (SULFONA Class 4-08 Anderso MIDE 00:00: n ANTIBIOT 00 ICS) LEVOFLOX DRUG Active 2012- MD ACIN INGREDI 4-08 Anderso 00:00: n 00 AMOXICIL DRUG Active High Other 2012- MD TERA-POT 4-08 Anderso CLAVULAN 00:00: n ATE 00 AMOXICIL DRUG Active High Other 2012- MD TERA-POT 4-08 Anderso CLAVULAN 00:00: n ATE 00 SULFA Drug Active High 2012- MD (SULFONA Class 4-08 Anderso MIDE 00:00: n ANTIBIOT 00 ICS) LEVOFLOX DRUG Active MD ACIN INGREDI 4-08 Anderso 00:00: n 00 AMOXICIL DRUG Active High Other MD TERA-POT 4-08 Anderso CLAVULAN 00:00: n ATE 00 SULFA Drug Active High 2012- MD (SULFONA Class 4-08 Anderso MIDE 00:00: n ANTIBIOT 00 ICS) LEVOFLOX DRUG Active MD ACIN INGREDI 4-08 Anderso 00:00: n 00 SULFA Drug Active High MD (SULFONA Class 4-08 Anderso MIDE 00:00: n ANTIBIOT 00 ICS) LEVOFLOX DRUG Active 2012- MD ACIN INGREDI 4-08 Anderso 00:00: n 00 AMOXICIL DRUG Active High Other MD TERA-POT 4-08 Anderso CLAVULAN 00:00: n ATE 00 SULFA Drug Active High 2012- MD (SULFONA Class 4-08 Anderso MIDE 00:00: n ANTIBIOT 00 ICS) LEVOFLOX DRUG Active 2012- MD ACIN INGREDI 4-08 Anderso 00:00: n 00 AMOXICIL DRUG Active High Other 2012- MD TERA-POT 4-08 Anderso CLAVULAN 00:00: n ATE 00 LEVOFLOX DRUG Active 2012- MD ACIN INGREDI 4-08 Anderso 00:00: n 00 SULFA Drug Active High MD (SULFONA Class 4-08 Anderso MIDE 00:00: n ANTIBIOT 00 ICS) LEVOFLOX DRUG Active 2012- MD ACIN INGREDI 4-08 Anderso 00:00: n 00 AMOXICIL DRUG Active High Other 2012- MD TERA-POT 4-08 Anderso CLAVULAN 00:00: n ATE 00 SULFA Drug Active High 2012- MD (SULFONA Class 4-08 Anderso MIDE 00:00: n ANTIBIOT 00 ICS) LEVOFLOX DRUG Active 2012- MD ACIN INGREDI 4-08 Anderso 00:00: n 00 AMOXICIL DRUG Active High Other 2012- MD TERA-POT 4-08 Anderso CLAVULAN 00:00: n ATE 00 SULFA Drug Active High 2012- MD (SULFONA Class 4-08 Anderso MIDE 00:00: n ANTIBIOT 00 ICS) LEVOFLOX DRUG Active 2012- MD ACIN INGREDI 4-08 Anderso 00:00: n 00 AMOXICIL DRUG Active High Other MD TERA-POT 4-08 Anderso CLAVULAN 00:00: n ATE 00 SULFA Drug Active High 2012- MD (SULFONA Class 4-08 Anderso MIDE 00:00: n ANTIBIOT 00 ICS) LEVOFLOX DRUG Active MD ACIN INGREDI 4-08 Anderso 00:00: n 00 AMOXICIL DRUG Active High Other 2012- MD TERA-POT 4-08 Anderso CLAVULAN 00:00: n ATE 00 SULFA Drug Active High 2012- MD (SULFONA Class 4-08 Anderso MIDE 00:00: n ANTIBIOT 00 ICS) LEVOFLOX DRUG Active 2012- MD ACIN INGREDI 4-08 Anderso 00:00: n 00 AMOXICIL DRUG Active High Other 2012- MD TERA-POT 4-08 Anderso CLAVULAN 00:00: n ATE 00 AMOXICIL DRUG Active High Other 2012- MD TERA-POT 4-08 Anderso CLAVULAN 00:00: n ATE 00 SULFA Drug Active High 2012- MD (SULFONA Class 4-08 Anderso MIDE 00:00: n ANTIBIOT 00 ICS) LEVOFLOX DRUG Active 2012- MD ACIN INGREDI 4-08 Anderso 00:00: n 00 AMOXICIL DRUG Active High Other 2012- MD TERA-POT 4-08 Anderso CLAVULAN 00:00: n ATE 00 SULFA Drug Active High 2012- MD (SULFONA Class 4-08 Anderso MIDE 00:00: n ANTIBIOT 00 ICS) LEVOFLOX DRUG Active 2012- MD ACIN INGREDI 4-08 Anderso 00:00: n 00 AMOXICIL DRUG Active High Other MD TERA-POT 4-08 Anderso CLAVULAN 00:00: n ATE 00 SULFA Drug Active High MD (SULFONA Class 4-08 Anderso MIDE 00:00: n ANTIBIOT 00 ICS) LEVOFLOX DRUG Active MD ACIN INGREDI 4-08 Anderso 00:00: n 00 SULFA Drug Active High MD (SULFONA Class 4-08 Anderso MIDE 00:00: n ANTIBIOT 00 ICS) AMOXICIL DRUG Active High Other MD TERA-POT 4-08 Anderso CLAVULAN 00:00: n ATE 00 SULFA Drug Active High MD (SULFONA Class 4-08 Anderso MIDE 00:00: n ANTIBIOT 00 ICS) LEVOFLOX DRUG Active MD ACIN INGREDI 4-08 Anderso 00:00: n 00 AMOXICIL DRUG Active High Other MD TERA-POT 4-08 Anderso CLAVULAN 00:00: n ATE 00 SULFA Drug Active High MD (SULFONA Class 4-08 Anderso MIDE 00:00: n ANTIBIOT 00 ICS) LEVOFLOX DRUG Active MD ACIN INGREDI 4-08 Anderso 00:00: n 00 AMOXICIL DRUG Active High Other MD TERA-POT 4-08 Anderso CLAVULAN 00:00: n ATE 00 LEVOFLOX DRUG Active MD ACIN INGREDI 4-08 Anderso 00:00: n 00 SULFA Drug Active High MD (SULFONA Class 4-08 Anderso MIDE 00:00: n ANTIBIOT 00 ICS) LEVOFLOX DRUG Active 2012- MD ACIN INGREDI 4-08 Anderso 00:00: n 00 AMOXICIL DRUG Active High Other MD TERA-POT 4-08 Anderso CLAVULAN 00:00: n ATE 00 SULFA Drug Active High MD (SULFONA Class 4-08 Anderso MIDE 00:00: n ANTIBIOT 00 ICS) LEVOFLOX DRUG Active 2012- MD ACIN INGREDI 4-08 Anderso 00:00: n 00 AMOXICIL DRUG Active High Other MD TERA-POT 4-08 Anderso CLAVULAN 00:00: n ATE 00 SULFA Drug Active High MD (SULFONA Class 4-08 Anderso MIDE 00:00: n ANTIBIOT 00 ICS) LEVOFLOX DRUG Active MD ACIN INGREDI 4-08 Anderso 00:00: n 00 AMOXICIL DRUG Active High Other MD TERA-POT 4-08 Anderso CLAVULAN 00:00: n ATE 00 SULFA Drug Active High MD (SULFONA Class 4-08 Anderso MIDE 00:00: n ANTIBIOT 00 ICS) LEVOFLOX DRUG Active MD ACIN INGREDI 4-08 Anderso 00:00: n 00 AMOXICIL DRUG Active High Other MD TERA-POT 4-08 Anderso CLAVULAN 00:00: n ATE 00 SULFA Drug Active High MD (SULFONA Class 4-08 Anderso MIDE 00:00: n ANTIBIOT 00 ICS) LEVOFLOX DRUG Active MD ACIN INGREDI 4-08 Anderso 00:00: n 00 AMOXICIL DRUG Active High Other MD TERA-POT 4-08 Anderso CLAVULAN 00:00: n ATE 00 AMOXICIL DRUG Active High Other MD TERA-POT 4-08 Anderso CLAVULAN 00:00: n ATE 00 SULFA Drug Active High MD (SULFONA Class 4-08 Anderso MIDE 00:00: n ANTIBIOT 00 ICS) LEVOFLOX DRUG Active MD ACIN INGREDI 408 Anderso 00:00: n 00 AMOXICIL DRUG Active High Other MD TERA-POT 4-08 Anderso CLAVULAN 00:00: n ATE 00 SULFA Drug Active High MD (SULFONA Class 4-08 Anderso MIDE 00:00: n ANTIBIOT 00 ICS) LEVOFLOX DRUG Active MD ACIN INGREDI 4-08 Anderso 00:00: n 00 AMOXICIL DRUG Active High Other MD TERA-POT 4-08 Anderso CLAVULAN 00:00: n ATE 00 Levoflox Propensi Active Altered psychosis Me thodi acin ty to Mental 09-[address] adverse Status 00:00: Hospita reaction 00 l s to drug Amoxicil Propensi Active Other (See Other Un dequan tera-Pot ty to Comments) 09-04 reaction( ity of Clavulan adverse 00:00: s): [place] ate reaction 00 Unknown - MD s See Anderso commentsC n [facility] bloodCoug lena up blood Levoflox Drug Active Other Univers acin Allergy 09-04 reaction( ity of 00:00: s): [place] 00 Altered MD Mental Anderso Status, n Unknown - Cancer See Center commentsp sychosisp sychosisp sychosis Sulfa Drug Active Other Univers (Sulfona Allergy 09-04 reaction( ity of mide 00:00: s): GI [place] Antibiot 00 Intoleran ics) ce, Andlacho Unknown - n See Cancer commentsp Center sychosis Shellfis Shellfis Active Unknown Commo n h h [facility] 463 Drug Active Unknown Common allergy [facility] [address] Drug Active shortness of Comm on allergy breath [facility] sulfa sulfa Active Memoria drugs drugs l [place] shellfis shellfis Active Memori a h h l [place] Latex Latex Active Memoria l [place] dexlanso dexlanso Active Memori a prazole prazole l [place] amoxicil amoxicil Active Memori a tera tera l [place] levoFLOX levoFLOX Active Memori a acin acin l [place] fluticas fluticas Active Memori a one one l [place] hydrochl hydrochl Active Memori a orothiaz orothiaz l zeke-tria zeke-tria Rodolfo n mterene mterene cefdinir cefdinir Active Memori a l [place] Food Food Active Memoria Sulfites Sulfites l [place] iodine iodine Active Memoria l [place] budesoni budesoni Active Memori a de-formo de-formo l terol terol [place] Family History Family Member Diagnosis Comments Start Date Stop Date Source Natural father Cancer [facility] Natural father Head and neck Univers ity of cancer [facility] Natural father Lymphoma [facility] Natural mother [facility] Maternal grandmother Skin cancer Uni versity of Luis stein [facility] Social History Social Habit Start Date Stop Date Quantity Comments Source History SDOH University o f Alcohol Frequency [place] [facility] History SDOH University o f Alcohol Std Drinks [place] [facility] SDNJ University o f Alcohol Binge [facility] History of Tobacco Current Smoker Co mmon Spirit - Use [facility] Sexual orientation [facility] [place] MD Jose stein [facility] Exposure to 2022-01-21 2022-01-31 Not sure University of SARS-CoV-2 (event) 00:00:00 17:56:00 [facility] Alcohol intake 2022-01-25 2022-01-25 Current drinker Unive rsity of 00:00:00 00:00:00 of alcohol Luis stein (finding) [facility] Cigarettes smoked 2022-01-13 2022-01-13 Univers ity of current (pack per 00:00:00 00:00:00 [place] Tiburcio Smith ) - Reported Cancer Ce nter Cigarette 2022-01-13 2022-01-13 University of pack-years 00:00:00 00:00:00 Luis stein [facility] Tobacco use and 2022-01-13 2022-01-13 Smokeless Universit y of exposure 00:00:00 00:00:00 tobacco non-user [facility] Tobacco Comment 2021-12-08 2021-12-08 not ready to Univers ity of 00:00:00 00:00:00 quit yet [facility] History of Social 2021-11-03 2021-11-[address] function 00:00:00 00:00:00 Hospital Alcohol Comment 2021-10-21 2021-10-21 Vodka- nine Methodis t 00:00:00 00:00:00 drinks/day Hospital Social History 2020-08-20 2020-08-20 [facility] Kajal austin 16:08:21 16:08:21 [birth year] At [birth year] Universit y of 00:00:00 00:00:00 Luis stein [facility] Smoking Status Start Date Stop Date Source Tobacco smoking status 2022-05-18 17:04:58 Ninfa Gonzalez Ex-smoker 2022-01-13 00:00:00 2022-01-13 00:00:00 Universi ty of [facility] [place] Medications Ordered Filled Start Stop Current Ordering Indication Dosage Frequency Signature Comments Components Source Medication Medication Date Date Medication? Clinician (SIG) Name Name aztreonam 2022-05 No 1000mg 1,000 mg, Univers (AZACTAM) 0-10 10-11 IV ity of 1,000 mg in 23:45: 00:15 Piggyback, [place] NaCl 0.9% 00 :00 ONCE, 1 Medical (NS) 100 mL dose, On Bran ch MINI-BAG Tue03/08/23 at 1845, Administer over 30 Minutes, 100 mL
Reas on for Anti-Infec tive: Empiric Therapy for Suspected Infection< br>Empiric Therapy Site: Blood
D uration of therapy: 72 hours NaCl 0.9% 2022-05 No 1000mL at 999 Uni vers (NS) bolus 0-10 10-11 mL/hr, ity of infusion 22:15: 00:18 1,000 mL, Sid as 1,000 mL 00 :00 IV Medical Infusion, Branch ONCE, 1 dose, On Tue03/08/23 at 1715, STAT diazePAM 2022- No 2mg Take 1 Univer s (VALIUM) 2 8-15 08-15 tablet (2 ity of mg tablet 15:13: 00:00 mg) by [place] 59 :00 mouth as MD needed. 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 n [facility] albuterol Yes 2.5mg Inhale 3 Uni vers (PROVENTIL, 5-09 mL (2.5 ity o f VENTOLIN) 09:34: mg) by Luis 2.5 mg/3 mL 39 nebulizati (0.083%) on every 6 Jose so nebulizer (six) n solution hours. 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 [facility] diphenhydrA 2022- No 25mg Take 25 mg Univers MINE 07-22 by mouth ity of (BENADRYL) 15:41: 00:00 every 8 Sid as 25 mg 43 :00 (eight) MD capsule hours as Anderso needed for n allergies. [facility] Albuterol Albuterol No TID Albuterol Sulfate Sulfate 1-25 Sulfate (2.5 (2.5 00:00: (2.5 MG/3ML) MG/3ML) 00 MG/3ML) 0.083% 0.083% 0.083% Albuterol Albuterol No TID Albuterol Sulfate Sulfate 1-25 Sulfate (2.5 (2.5 00:00: (2.5 MG/3ML) MG/3ML) 00 MG/3ML) 0.083% 0.083% 0.083% albuterol 2021-05 Yes USE 1 VIAL Me moria 0.083% 2-20 IN l inhalation 17:10: NEBULIZER [place] solution 00 EVERY 8 HOURS albuterol 2021-05 Yes USE 1 VIAL [place] 0.083% 2-20 IN l inhalation 17:10: NEBULIZER [place] solution 00 EVERY 8 HOURS albuterol 2021-05 Yes USE 1 VIAL [place] 0.083% 2-20 IN l inhalation 17:10: NEBULIZER [place] solution 00 EVERY 8 HOURS albuterol 2021-05 Yes USE 1 VIAL [place] 0.083% 2-20 IN l inhalation 17:10: NEBULIZER [place] solution 00 EVERY 8 HOURS albuterol 2021-05 Yes USE 1 VIAL [place] 0.083% 2-20 IN l inhalation 17:10: NEBULIZER [place] solution 00 EVERY 8 HOURS albuterol 2021-05 Yes USE 1 VIAL [place] 0.083% 2-20 IN l inhalation 17:10: NEBULIZER [place] solution 00 EVERY 8 HOURS albuterol 2021-05 Yes USE 1 VIAL [place] 0.083% 2-20 IN l inhalation 17:10: NEBULIZER [place] solution 00 EVERY 8 HOURS predniSONE 2022-1 2023- No Squamous 50mg Take 1 Univers (DELTASONE) 1-15 - cell tablet (50 i ty of 50 mg 00:00: 00:00 carcinoma mg[place] tablet 00 :00 of mouth 3 MD esophagus (three) Anderso times a n day. Take Cancer 1 tab 13, Center 7, and 1 hour prior to receiving iodine contrast. Take 50 mg Benadryl within one hour of scan. acetylcyste 2021-05- No Carcinoma 200mg Take 1 mL Univers ine 114 -23 of (200 mg) ity of (MUCOMYST) 00:00: 00:00 esophagus by mouth [place] 200 mg/mL 00 :00 twice MD (20[facility]. [facility] acetylcyste 2021-05- No Obstruction 600mg Take 3 mL Univers ine 06-07 11-10 of trachea (600 mg) ity of (MUCOMYST) 00:00: 00:00 by mouth [place] 200 mg/mL 00 :00 twice MD (20%) daily. Anderso nebulizer [facility] acetylcyste 2021-05 No Carcinoma 200mg Take 1 mL Univers ine 06-06 11-14 of (200 mg) ity of (MUCOMYST) 00:00: 00:00 esophagus by mouth [place] 200 mg/mL 00 :00 twice MD (20%) daily. Anderso nebulizer [facility] predniSONE 2022- No Obstruction Please Univers (DELTASONE) 01-26 of trachea take 20 mg ity of 10 mg 00:00: 00:00 daily x 3 [place] tablet 00 :00 days, then MD 10 mg Anderso daily for n 3 days, Cancer then 10 mg Center every other day for 3 doses doxycycline 2021- No 100mg 100 mg, U nivers hyclate 01-19 Oral, ity of (Vibramycin 03:15: 03:14 ONCE, 1 [place] capsule 00 :00 dose, On Medica l 100 mg Mon Branch 01/18/22 at 2215, BRIGIDO
Re ason for Anti-Infec tive: Empiric Therapy for Suspected Infection< br>Empiric Therapy Site: Skin / Soft tissue
Duration of therapy: 5 days predniSONE 2021- No 50mg 50 mg, Univ ers (DELTASONE) 01-19 08- Oral, ity of tablet 50 00:15: 00:33 ONCE, 1 [place] mg 00 :00 dose, On Medical Mon Branch 01/18/22 at 1915, BRIGIDO doxycycline 2021-2021- No [id number] 100mg Take 1 Univers hyclate 100 01-18 capsule by i ty of mg capsule 00:00: 04:59 mouth in [place] 00 :00 the Medical morning Branch and 1 capsule in the evening. Do all this for 14 days. doxycycline 2021-0 2021- No [id number] 100mg Take 1 Univers hyclate 100 01-18 capsule by i ty of mg capsule 00:00: 04:59 mouth in [place] 00 :00 the Medical morning Branch and 1 capsule in the evening. Do all this for 14 days. doxycycline 2021-2021- No [id number] 100mg Take 1 Univers hyclate 100 01-18 capsule by i ty of mg capsule 00:00: 04:59 mouth in [place] 00 :00 the Medical morning Branch and 1 capsule in the evening. Do all this for 14 days. acetylcyste 2021- No 200mg Take 200 Univers ine 8-16 11-08 mg by ity of (MUCOMYST) 00:00: 00:00 mouth [place] 200 mg/mL 00 :00 twice MD (20%) daily. Anderso nebulizer n [facility] Yes Apply to Un dequan ne 8-10 area(s) as ity of acetonide 14:01: needed. [place] 0.1 % cream 52 [facility] Branch tricinolo Yes Apply to Un dequan ne 8-10 area(s) as ity of acetonide 14:01: needed. [place] 0.1 % cream 52 [facility] triamcinolo Yes Apply to Un de[place]an ne 8-10 area(s) as ity of acetonide 14:01: needed. [place] 0.1 % cream 52 [facility] Apply to Un [place] ne 8-10 area(s) as ity of acetonide 14:01: needed. [place] 0.1 % cream 52 Medical Branch triamcinolo 2021-0 Yes Apply to Un dequan ne 8-10 area(s) as ity of acetonide 14:01: needed. [place] 0.1 % cream 52 Medical Branch triamcinolo 2021-0 Yes Apply to Un de[place]an ne 8-10 area(s) as ity of acetonide 14:01: needed. [place] 0.1 % cream 52 Medical Branch triamcinolo 2021-0 Yes Apply to Un de[place]an ne 8-10 area(s) as ity of acetonide 14:01: needed. [place] 0.1 % cream 52 Medical Branch triamcinolo 2021-0 Yes Apply to Un [place] 8-10 area(s) as ity of acetonide 14:01: needed. [place] 0.1 % cream 52 Medical Branch triamcinolo 2021-0 Yes Apply to Un de[place]an ne 8-10 area(s) as ity of acetonide 14:01: needed. [place] 0.1 % cream 52 Medical Branch triamcinolo 2021-0 Yes Apply to Un [place] ne 8-10 area(s) as ity of acetonide 14:01: needed. [place] 0.1 % cream 52 Medical Branch triamcinolo 2021-0 Yes Apply to Un [place] 8-10 area(s) as ity of acetonide 14:01: needed. [place] 0.1 % cream 52 Medical Branch triamcinolo 2021-0 Yes Apply to Un [place] ne 8-10 area(s) as ity of acetonide 14:01: needed. [place] 0.1 % cream 52 Medical Branch triamcinolo 2021-0 Yes Apply to Un de[place]an ne 8-10 area(s) as ity of acetonide 14:01: needed. [place] 0.1 % cream 52 Medical Branch triamcinolo 2021-0 Yes Apply to Un [place] ne 8-10 area(s) as ity of acetonide 14:01: needed. [place] 0.1 % cream 52 Medical Branch triamcinolo 2021-0 Yes Apply to Un dequan ne 8-10 area(s) as ity of acetonide 14:01: needed. [place] 0.1 % cream 52 Medical Branch acetylcyste 2021-0 Yes [id number] 200mg Inhale 1 Univers ine 200 8-10 [id number] mL in the ity o f mg/mL (20 00:00: morning [place] %) 00 and 1 mL Medical inhalation in the Branch solution evening. acetylcyste 2-0 Yes [id number] 200mg Inhale 1 Univers ine 200 8-10 [id number] mL in the ity o f mg/mL (20 00:00: morning [place] %) 00 and 1 mL Medical inhalation in the Branch solution evening. acetylcyste 2-0 Yes [id number] 200mg Inhale 1 Univers ine 200 8-10 [id number] mL in the ity o f mg/mL (20 00:00: morning [place] %) 00 and 1 mL Medical inhalation in the Branch solution evening. acetylcyste 2021-0 Yes [id number] 200mg Inhale 1 Univers ine 200 8-10 [id number] mL in the ity o f mg/mL (20 00:00: morning [place] %) 00 and 1 mL Medical inhalation in the Branch solution evening. acetylcyste 2021-0 Yes [id number] 200mg Inhale 1 Univers ine 200 8-10 [id number] mL in the ity o f mg/mL (20 00:00: morning [place] %) 00 and 1 mL Medical inhalation in the Branch solution evening. acetylcyste 2021-0 Yes [id number] 200mg Inhale 1 Univers ine 200 8-10 [id number] mL in the ity o f mg/mL (20 00:00: morning [place] %) 00 and 1 mL Medical inhalation in the Branch solution evening. acetylcyste 2021-0 Yes [id number] 200mg Inhale 1 Univers ine 200 8-10 [id number] mL in the ity o f mg/mL (20 00:00: morning [place] %) 00 and 1 mL Medical inhalation in the Branch solution evening. acetylcyste 2-0 Yes [id number] 200mg Inhale 1 Univers ine 200 8-10 [id number] mL in the ity o f mg/mL (20 00:00: morning [place] %) 00 and 1 mL Medical inhalation in the Branch solution evening. acetylcyste 2-0 Yes [id number] 200mg Inhale 1 Univers ine 200 8-10 [id number] mL in the ity o f mg/mL (20 00:00: morning [place] %) 00 and 1 mL Medical inhalation in the Branch solution evening. acetylcyste 2021-0 Yes [id number] 200mg Inhale 1 Univers ine 200 8-10 [id number] mL in the ity o f mg/mL (20 00:00: morning [place] %) 00 and 1 mL Medical inhalation in the Branch solution evening. acetylcyste 2021-0 Yes [id number] 200mg Inhale 1 Univers ine 200 8-10 [id number] mL in the ity o f mg/mL (20 00:00: morning [place] %) 00 and 1 mL Medical inhalation in the Branch solution evening. acetylcyste 2021-0 Yes [id number] 200mg Inhale 1 Univers ine 200 8-10 [id number] mL in the ity o f mg/mL (20 00:00: morning [place] %) 00 and 1 mL Medical inhalation in the Branch solution evening. acetylcyste 2021-0 Yes [id number] 200mg Inhale 1 Univers ine 200 8-10 [id number] mL in the ity o f mg/mL (20 00:00: morning [place] %) 00 and 1 mL Medical inhalation in the Branch solution evening. acetylcyste 2021-0 Yes [id number] 200mg Inhale 1 Univers ine 200 8-10 [id number] mL in the ity o f mg/mL (20 00:00: morning [place] %) 00 and 1 mL Medical inhalation in the Branch solution evening. acetylcyste 2021-0 Yes [id number] 200mg Inhale 1 Univers ine 200 8-10 [id number] mL in the ity o f mg/mL (20 00:00: morning [place] %) 00 and 1 mL Medical inhalation in the Branch solution evening. predniSONE 2021- No [id number] Take 2 Univers 10 mg 8-10 08-26 tablets by ity of tablet pack 00:00: 04:59 mouth [place] 00 :00 daily for Medical 5 days, Branch THEN 1 tablet daily for 5 days, THEN 1 tablet every other day for 5 days. predniSONE 2021- No [id number] Take 2 Univers 10 mg 8-10 08-26 tablets by ity of tablet pack 00:00: 04:59 mouth [place] 00 :00 daily for Medical 5 days, Branch THEN 1 tablet daily for 5 days, THEN 1 tablet every other day for 5 days. predniSONE 2021- No [id number] Take 2 Univers 10 mg 8-10 08-26 tablets by ity of tablet pack 00:00: 04:59 mouth [place] 00 :00 daily for Medical 5 days, Branch THEN 1 tablet daily for 5 days, THEN 1 tablet every other day for 5 days. ProAir HFA Yes INHALE 2 Uni vers 90 8-07 PUFFS BY ity of mcg/actuati 00:00: MOUTH [place] on inhaler 00 EVERY 4 MD HOURS Anderso NEEDED FOR n SHORTNESS Cancer OF BREATH Center albuterol Yes [id number] INHALE 2 Univers (PROAIR 8-07 PUFFS BY ity of HFA) 90 00:00: MOUTH [place] mcg/actuati 00 EVERY 4 Medic al on inhaler HOURS Branc h NEEDED FOR SHORTNESS OF BREATH AND FOR WHEEZING albuterol Yes [id number] INHALE 2 Univers (PROAIR 8-07 PUFFS BY ity of HFA) 90 00:00: MOUTH [place] mcg/actuati 00 EVERY 4 Medic al on inhaler HOURS Branc h NEEDED FOR SHORTNESS OF BREATH AND FOR WHEEZING albuterol Yes [id number] INHALE 2 Univers (PROAIR 8-07 PUFFS BY ity of HFA) 90 00:00: MOUTH [place] mcg/actuati 00 EVERY 4 Medic al on inhaler HOURS Branc h NEEDED FOR SHORTNESS OF BREATH AND FOR WHEEZING albuterol Yes [id number] INHALE 2 Univers (PROAIR 8-07 PUFFS BY ity of HFA) 90 00:00: MOUTH [place] mcg/actuati 00 EVERY 4 Medic al on inhaler HOURS Branc h NEEDED FOR SHORTNESS OF BREATH AND FOR WHEEZING albuterol Yes [id number] INHALE 2 Univers (PROAIR 8-07 PUFFS BY ity of HFA) 90 00:00: MOUTH [place] mcg/actuati 00 EVERY 4 Medic al on inhaler HOURS Branc h NEEDED FOR SHORTNESS OF BREATH AND FOR WHEEZING albuterol Yes [id number] INHALE 2 Univers (PROAIR 8-07 PUFFS BY ity of HFA) 90 00:00: MOUTH [place] mcg/actuati 00 EVERY 4 Medic al on inhaler HOURS Branc h NEEDED FOR SHORTNESS OF BREATH AND FOR WHEEZING albuterol 2022-0 Yes [id number] INHALE 2 Univers (PROAIR 8-07 PUFFS BY ity of HFA) 90 00:00: MOUTH [place] mcg/actuati 00 EVERY 4 Medic al on inhaler HOURS Branc h NEEDED FOR SHORTNESS OF BREATH AND FOR WHEEZING albuterol 0 Yes [id number] INHALE 2 Univers (PROAIR 8-07 PUFFS BY ity of HFA) 90 00:00: MOUTH [place] mcg/actuati 00 EVERY 4 Medic al on inhaler HOURS Branc h NEEDED FOR SHORTNESS OF BREATH AND FOR WHEEZING albuterol 0 Yes [id number] INHALE 2 Univers (PROAIR 8-07 PUFFS BY ity of HFA) 90 00:00: MOUTH [place] mcg/actuati 00 EVERY 4 Medic al on inhaler HOURS Branc h NEEDED FOR SHORTNESS OF BREATH AND FOR WHEEZING albuterol 0 Yes [id number] INHALE 2 Univers (PROAIR 8-07 PUFFS BY ity of HFA) 90 00:00: MOUTH [place] mcg/actuati 00 EVERY 4 Medic al on inhaler HOURS Branc h NEEDED FOR SHORTNESS OF BREATH AND FOR WHEEZING albuterol 0 Yes [id number] INHALE 2 Univers (PROAIR 8-07 PUFFS BY ity of HFA) 90 00:00: MOUTH [place] mcg/actuati 00 EVERY 4 Medic al on inhaler HOURS Branc h NEEDED FOR SHORTNESS OF BREATH AND FOR WHEEZING albuterol 2021-0 Yes [id number] INHALE 2 Univers (PROAIR 8-07 PUFFS BY ity of HFA) 90 00:00: MOUTH [place] mcg/actuati 00 EVERY 4 Medic al on inhaler HOURS Branc h NEEDED FOR SHORTNESS OF BREATH AND FOR WHEEZING albuterol 2021-0 Yes [id number] INHALE 2 Univers (PROAIR 8-07 PUFFS BY ity of HFA) 90 00:00: MOUTH [place] mcg/actuati 00 EVERY 4 Medic al on inhaler HOURS Branc h NEEDED FOR SHORTNESS OF BREATH AND FOR WHEEZING albuterol 2021-0 Yes [id number] INHALE 2 Univers (PROAIR 8-07 PUFFS BY ity of HFA) 90 00:00: MOUTH [place] mcg/actuati 00 EVERY 4 Medic al on inhaler HOURS Branc h NEEDED FOR SHORTNESS OF BREATH AND FOR WHEEZING albuterol Yes [id number] INHALE 2 Univers (PROAIR 8-07 PUFFS BY ity of A) 90 00:00: MOUTH [place] mcg/actuati 00 EVERY 4 Medic al on inhaler HOURS Branc h NEEDED FOR SHORTNESS OF BREATH AND FOR WHEEZING benzonatate Yes [id number] 100mg Take 1 Univers (TESSALON 7-29 capsule by ity of PERLES) 100 00:00: mouth [place] mg capsule 00 every 8 Medica l (eight) Branch hours as needed for Cough. benzonatate Yes [id number] 100mg Take 1 Univers (TESSALON 7-29 capsule by ity of PERLES) 100 00:00: mouth [place] mg capsule 00 every 8 Medica l (eight) Branch hours as needed for Cough. benzonatate Yes [id number] 100mg Take 1 Univers (TESSALON 7-29 capsule by ity of PERLES) 100 00:00: mouth [place] mg capsule 00 every 8 Medica l (eight) Branch hours as needed for Cough. benzonatate Yes [id number] 100mg Take 1 Univers (TESSALON 7-29 capsule by ity of PERLES) 100 00:00: mouth [place] mg capsule 00 every 8 Medica l (eight) Branch hours as needed for Cough. benzonatate Yes [id number] 100mg Take 1 Univers (TESSALON 7-29 capsule by ity of PERLES) 100 00:00: mouth [place] mg capsule 00 every 8 Medica l (eight) Branch hours as needed for Cough. benzonatate 0 Yes [id number] 100mg Take 1 Univers (TESSALON 7-29 capsule by ity of PERLES) 100 00:00: mouth [place] mg capsule 00 every 8 Medica l (eight) Branch hours as needed for Cough. benzonatate 0 Yes [id number] 100mg Take 1 Univers (TESSALON 7-29 capsule by ity of PERLES) 100 00:00: mouth [place] mg capsule 00 every 8 Medica l (eight) Branch hours as needed for Cough. benzonatate 0 Yes [id number] 100mg Take 1 Univers (TESSALON 7-29 capsule by ity of PERLES) 100 00:00: mouth [place] mg capsule 00 every 8 Medica l (eight) Branch hours as needed for Cough. benzonatate 2-0 Yes [id number] 100mg Take 1 Univers (TESSALON 7-29 capsule by ity of PERLES) 100 00:00: mouth [place] mg capsule 00 every 8 Medica l (eight) Branch hours as needed for Cough. benzonatate 2022-0 Yes [id number] 100mg Take 1 Univers (TESSALON 7-29 capsule by ity of PERLES) 100 00:00: mouth [place] mg capsule 00 every 8 Medica l (eight) Branch hours as needed for Cough. benzonatate 2-0 Yes [id number] 100mg Take 1 Univers (TESSALON 7-29 capsule by ity of PERLES) 100 00:00: mouth [place] mg capsule 00 every 8 Medica l (eight) Branch hours as needed for Cough. benzonatate 2021-0 Yes [id number] 100mg Take 1 Univers (TESSALON 7-29 capsule by ity of PERLES) 100 00:00: mouth [place] mg capsule 00 every 8 Medica l (eight) Branch hours as needed for Cough. benzonatate 2021-0 Yes [id number] 100mg Take 1 Univers (TESSALON 7-29 capsule by ity of PERLES) 100 00:00: mouth [place] mg capsule 00 every 8 Medica l (eight) Branch hours as needed for Cough. benzonatate 2021-0 Yes [id number] 100mg Take 1 Univers (TESSALON 7-29 capsule by ity of PERLES) 100 00:00: mouth [place] mg capsule 00 every 8 Medica l (eight) Branch hours as needed for Cough. benzonatate 2021-0 Yes [id number] 100mg Take 1 Univers (TESSALON 7-29 capsule by ity of PERLES) 100 00:00: mouth [place] mg capsule 00 every 8 Medica l (eight) Branch hours as needed for Cough. doxycycline 2021-0 Yes 0 Memori a hyclate 100 7-08 Refill(s) l mg oral 20:02: [place] tablet 00 doxycycline 2021-0 Yes 0 Memori a hyclate 100 7-08 Refill(s) l mg oral 20:02: [place] tablet 00 doxycycline 2021-0 Yes 0 Memori a hyclate 100 7-08 Refill(s) l mg oral 20:02: [place] tablet 00 doxycycline 2021-0 Yes 0 Memori a hyclate 100 7-08 Refill(s) l mg oral 20:02: [place] tablet 00 doxycycline 2021-0 Yes 0 Memori a hyclate 100 7-08 Refill(s) l mg oral 20:02: [place] tablet 00 doxycycline 2021-0 Yes 0 Memori a hyclate 100 7-08 Refill(s) l mg oral 20:02: [place] tablet 00 doxycycline 2021-0 Yes 0 Memori a hyclate 100 7-08 Refill(s) l mg oral 20:02: [place] tablet 00 doxycycline 2021-0 Yes 0 Memori a hyclate 100 7-08 Refill(s) l mg oral 20:02: [place] tablet 00 doxycycline 2021-0 Yes 0 Memori a hyclate 100 7-08 Refill(s) l mg oral 20:02: [place] tablet 00 gabapentin 2021-0 Yes 300 mg = 6 M emoria 250 mg/5 mL 6-10 mL, PO, l oral 15:16: BID, # 360 [place] solution 00 mL, 2 Refill(s), Pharmacy: [facility], 160.02, cm, 11/05/21 14:43:00 CDT, Height, 102.727, kg, 11/05/21 14:43:00 CDT, Weight gabapentin 2021-0 Yes 300 mg = 6 M emoria 250 mg/5 mL 6-10 mL, PO, l oral 15:16: BID, # 360 [place] solution 00 mL, 2 Refill(s), Pharmacy: [facility], 160.02, cm, 11/05/21 14:43:00 CDT, Height, 102.727, kg, 11/05/21 14:43:00 CDT, Weight gabapentin 2021-0 Yes 300 mg = 6 M [place] 250 mg/5 mL 6-10 mL, PO, l oral 15:16: BID, # 360 [place] solution 00 mL, 2 Refill(s), Pharmacy: [facility], 160.02, cm, 11/05/21 14:43:00 CDT, Height, 102.727, kg, 11/05/21 14:43:00 CDT, Weight gabapentin 2022-0 Yes 300 mg = 6 M [place] 250 mg/5 mL 6-10 mL, PO, l oral 15:16: BID, # 360 [place] solution 00 mL, 2 Refill(s), Pharmacy: [facility], 160.02, cm, 11/05/21 14:43:00 CDT, Height, 102.727, kg, 11/05/21 14:43:00 CDT, Weight gabapentin 2022-0 Yes 300 mg = 6 M [place] 250 mg/5 mL 6-10 mL, PO, l oral 15:16: BID, # 360 [place] solution 00 mL, 2 Refill(s), Pharmacy: [facility], 160.02, cm, 11/05/21 14:43:00 CDT, Height, 102.727, kg, 11/05/21 14:43:00 CDT, Weight gabapentin 2022-0 Yes 300 mg = 6 M [place] 250 mg/5 mL 6-10 mL, PO, l oral 15:16: BID, # 360 [place] solution 00 mL, 2 Refill(s), Pharmacy: [facility], 160.02, cm, 11/05/21 14:43:00 CDT, Height, 102.727, kg, 11/05/21 14:43:00 CDT, Weight gabapentin 2022-0 Yes 300 mg = 6 M [place] 250 mg/5 mL 6-10 mL, PO, l oral 15:16: BID, # 360 [place] solution 00 mL, 2 Refill(s), Pharmacy: [facility], 160.02, cm, 11/05/21 14:43:00 CDT, Height, 102.727, kg, 11/05/21 14:43:00 CDT, Weight gabapentin 2022-0 Yes 300 mg = 6 M [place] 250 mg/5 mL 6-10 mL, PO, l oral 15:16: BID, # 360 [place] solution 00 mL, 2 Refill(s), Pharmacy: [facility], 160.02, cm, 11/05/21 14:43:00 CDT, Height, 102.727, kg, 11/05/21 14:43:00 CDT, Weight gabapentin Yes 300 mg = 6 M [place] 250 mg/5 mL 6-10 mL, PO, l oral 15:16: BID, # 360 [place] solution 00 mL, 2 Refill(s), Pharmacy: [facility], 160.02, cm, 11/05/21 14:43:00 CDT, Height, 102.727, kg, 11/05/21 14:43:00 CDT, Weight gabapentin Yes [facility] (NEURONTIN) 6 st 600 mg 12:44: [facility] tablet 17 l albuterol Yes Q8H every 8 Metho di (ACCUNEB) 10-29 (eight) st 2.5 mg /3 00:00: hours as [facility] mL (0.083 00 needed. l %) nebulizer solution Vibramycin Vibramycin 2021- No 1{capsu BID Vibramycin 100 MG 100 MG 3-25 03-30 le} 100 MG 00:00: 00:00 00 :00 predniSONE predniSONE 2020-2020- No BID predniSONE 20 MG 20 MG 0-14 10-19 20 MG 00:00: 00:00 00 :00 predniSONE predniSONE 2020-2020- No BID predniSONE 20 MG 20 MG 0-14 10-19 20 MG 00:00: 00:00 00 :00 predniSONE predniSONE 2020-0 No QD predniSONE 10 MG 10 MG 8-03 10 MG 00:00: 00 predniSONE predniSONE 2020-0 No QD predniSONE 10 MG 10 MG 8-03 10 MG 00:00: 00 predniSONE predniSONE 2020-0 No QD predniSONE 10 MG 10 MG 8-03 10 MG 00:00: 00 predniSONE predniSONE 0 No QD predniSONE 10 MG 10 MG 8-03 10 MG 00:00: 00 predniSONE predniSONE 2020-0 No QD predniSONE 10 MG 10 MG 8-03 10 MG 00:00: 00 predniSONE predniSONE 2020-0 No QD predniSONE 10 MG 10 MG 8-03 10 MG 00:00: 00 predniSONE predniSONE 0 No QD predniSONE 10 MG 10 MG 8-03 10 MG 00:00: 00 predniSONE predniSONE 2020-0 No QD predniSONE 10 MG 10 MG 8-03 10 MG 00:00: 00 predniSONE predniSONE 2020-0 No QD predniSONE 10 MG 10 MG 8-03 10 MG 00:00: 00 predniSONE predniSONE 2020-0 No QD predniSONE 10 MG 10 MG 8-03 10 MG 00:00: 00 predniSONE predniSONE 2020-0 No QD predniSONE 10 MG 10 MG 8-03 10 MG 00:00: 00 predniSONE predniSONE 2020-0 No QD predniSONE 10 MG 10 MG 8-03 10 MG 00:00: 00 predniSONE predniSONE 2020-0 No QD predniSONE 10 MG 10 MG 8-03 10 MG 00:00: 00 predniSONE predniSONE 2020-0 No QD predniSONE 10 MG 10 MG 8-03 10 MG 00:00: 00 predniSONE predniSONE 2020-0 No QD predniSONE 10 MG 10 MG 8-03 10 MG 00:00: 00 predniSONE predniSONE 2020-0 No QD predniSONE 10 MG 10 MG 8-03 10 MG 00:00: 00 predniSONE predniSONE 2020-0 No QD predniSONE 10 MG 10 MG 8-03 10 MG 00:00: 00 predniSONE predniSONE 2020-0 No QD predniSONE 10 MG 10 MG 8-03 10 MG 00:00: 00 predniSONE predniSONE 2020-0 No QD predniSONE 10 MG 10 MG 8-03 10 MG 00:00: 00 predniSONE predniSONE 2020-0 No QD predniSONE 10 MG 10 MG 8-03 10 MG 00:00: 00 predniSONE predniSONE 2020-0 No QD predniSONE 10 MG 10 MG 8-03 10 MG 00:00: 00 predniSONE predniSONE 2020-0 No QD predniSONE 10 MG 10 MG 8-03 10 MG 00:00: 00 predniSONE predniSONE 2020-0 No QD predniSONE 10 MG 10 MG 8-03 10 MG 00:00: 00 predniSONE predniSONE 2020-0 No QD predniSONE 10 MG 10 MG 8-03 10 MG 00:00: 00 predniSONE predniSONE 2020-0 No QD predniSONE 10 MG 10 MG 8-03 10 MG 00:00: 00 predniSONE predniSONE 2020-0 No QD predniSONE 10 MG 10 MG 8-03 10 MG 00:00: 00 predniSONE predniSONE 2020-0 No QD predniSONE 10 MG 10 MG 8-03 10 MG 00:00: 00 predniSONE predniSONE 2020-0 No QD predniSONE 10 MG 10 MG 8-03 10 MG 00:00: 00 predniSONE 2020-0 Yes [facility] (DELTASONE) 803 st 10 mg 00:00: [facility] tablet 00 l gabapentin 2020-0 Yes See Memoria 600 MG Oral 09-03 Instructio l Tablet 14:26: ns, 1/2 [place] 00 tab po bid, # 30 tab, 3 Refill(s), Pharmacy: [facility], 162.56, cm, 08/20/20 11:01:00 CDT, Height, 120.909, kg, 09/03/20 8:30:00 CDT, Weight gabapentin 2021-0 Yes See Memoria 600 MG Oral 4-07 Instructio l Tablet 14:26: ns, 05/31 [place] 00 tab po bid, # 30 tab, 3 Refill(s), Pharmacy: [facility], 162.56, cm, 08/20/20 11:01:00 CDT, Height, 120.909, kg, 09/03/20 8:30:00 CDT, Weight gabapentin 2021-0 Yes See Memoria 600 MG Oral 4-07 Instructio l Tablet 14:26: ns, 05/31 [place] 00 tab po bid, # 30 tab, 3 Refill(s), Pharmacy: [facility], 162.56, cm, 08/20/20 11:01:00 CDT, Height, 120.909, kg, 09/03/20 8:30:00 CDT, Weight gabapentin 2021-0 Yes See Memoria 600 MG Oral 4-07 Instructio l Tablet 14:26: ns, 05/31 [place] 00 tab po bid, # 30 tab, 3 Refill(s), Pharmacy: [facility], 162.56, cm, 08/20/20 11:01:00 CDT, Height, 120.909, kg, 09/03/20 8:30:00 CDT, Weight gabapentin 2021-0 Yes See Memoria 600 MG Oral 4-07 Instructio l Tablet 14:26: ns, 05/31 [place] 00 tab po bid, # 30 tab, 3 Refill(s), Pharmacy: [facility], 162.56, cm, 08/20/20 11:01:00 CDT, Height, 120.909, kg, 09/03/20 8:30:00 CDT, Weight gabapentin 2021-0 Yes See Memoria 600 MG Oral 4-07 Instructio l Tablet 14:26: ns, 05/31 [place] 00 tab po bid, # 30 tab, 3 Refill(s), Pharmacy: [facility], 162.56, cm, 08/20/20 11:01:00 CDT, Height, 120.909, kg, 09/03/20 8:30:00 CDT, Weight gabapentin 2021-0 Yes See Memoria 600 MG Oral 4-07 Instructio l Tablet 14:26: ns, 1/2 [place] 00 tab po bid, # 30 tab, 3 Refill(s), Pharmacy: [facility], 162.56, cm, 08/20/20 11:01:00 CDT, Height, 120.909, kg, 09/03/20 8:30:00 CDT, Weight gabapentin 2021-0 Yes See Memoria 600 MG Oral 4-07 Instructio l Tablet 14:26: ns, 05/31 [place] 00 tab po bid, # 30 tab, 3 Refill(s), Pharmacy: [facility], 162.56, cm, 08/20/20 11:01:00 CDT, Height, 120.909, kg, 09/03/20 8:30:00 CDT, Weight gabapentin 2021-0 Yes See Memoria 600 MG Oral 4-07 Instructio l Tablet 14:26: ns, 05/31 [place] 00 tab po bid, # 30 tab, 3 Refill(s), Pharmacy: [facility] 527, 162.56, cm, 08/20/20 11:01:00 CDT, Height, 120.909, kg, 09/03/20 8:30:00 CDT, Weight ciclopirox 2021-0 Yes 1 appl, Keanu tony 7.7 MG/ML 3-24 TOP, BID, l Topical 16:23: # 15 gm, 0 Herm sujatha Cream 00 Refill(s) ciclopirox 2021-0 Yes 1 appl, Keanu tony 7.7 MG/ML 3-24 TOP, BID, l Topical 16:23: # 15 gm, 0 Herm sujatha Cream 00 Refill(s) ciclopirox 2021-0 Yes 1 appl, Keanu tony 7.7 MG/ML 3-24 TOP, BID, l Topical 16:23: # 15 gm, 0 Herm sujatha Cream 00 Refill(s) ciclopirox 2021-0 Yes 1 appl, Keanu tony 7.7 MG/ML 3-24 TOP, BID, l Topical 16:23: # 15 gm, 0 Herm sujatha Cream 00 Refill(s) ciclopirox 2020-0 Yes 1 appl, Keanu tony 7.7 MG/ML 3-24 TOP, BID, l Topical 16:23: # 15 gm, 0 Herm sujatha Cream 00 Refill(s) ciclopirox 2020-0 Yes 1 appl, Keanu tony 7.7 MG/ML 3-24 TOP, BID, l Topical 16:23: # 15 gm, 0 Herm sujatha Cream 00 Refill(s) ciclopirox 2020-0 Yes 1 appl, Keanu tony 7.7 MG/ML 3-24 TOP, BID, l Topical 16:23: # 15 gm, 0 Herm sujatha Cream 00 Refill(s) ciclopirox 2020-0 Yes 1 appl, Keanu tony 7.7 MG/ML 3-24 TOP, BID, l Topical 16:23: # 15 gm, 0 Herm sujatha Cream 00 Refill(s) ciclopirox 2020-0 Yes 1 appl, Keanu tony 7.7 MG/ML 3-24 TOP, BID, l Topical 16:23: # 15 gm, 0 Herm sujatha Cream 00 Refill(s) Triamcinolo 2020-0 Yes 1 appl, Mem oria ne 3-24 TOP, BID, l Acetonide 1 16:22: PRN For Her ramirez MG/ML 00 rash, # 15 Topical gm, 0 Cream Refill(s) Triamcinolo 2020-0 Yes 1 appl, Mem oria ne 3-24 TOP, BID, l Acetonide 1 16:22: PRN For Her ramirez MG/ML 00 rash, # 15 Topical gm, 0 Cream Refill(s) Triamcinolo 2020-0 Yes 1 appl, Mem oria ne 3-24 TOP, BID, l Acetonide 1 16:22: PRN For Her ramirez MG/ML 00 rash, # 15 Topical gm, 0 Cream Refill(s) Triamcinolo 2020-0 Yes 1 appl, Mem oria ne 3-24 TOP, BID, l Acetonide 1 16:22: PRN For Her ramirez MG/ML 00 rash, # 15 Topical gm, 0 Cream Refill(s) Triamcinolo 2020-0 Yes 1 appl, Mem oria ne 3-24 TOP, BID, l Acetonide 1 16:22: PRN For Her ramirez MG/ML 00 rash, # 15 Topical gm, 0 Cream Refill(s) Triamcinolo Yes 1 appl, Mem oria ne 3-24 TOP, BID, l Acetonide 1 16:22: PRN For Her ramirez MG/ML 00 rash, # 15 Topical gm, 0 Cream Refill(s) Triamcinolo Yes 1 appl, Mem oria ne 3-24 TOP, BID, l Acetonide 1 16:22: PRN For Her ramirez MG/ML 00 rash, # 15 Topical gm, 0 Cream Refill(s) Triamcinolo 2020- Yes 1 appl, Mem oria ne 3-24 TOP, BID, l Acetonide 1 16:22: PRN For Her ramirez MG/ML 00 rash, # 15 Topical gm, 0 Cream Refill(s) Triamcinolo Yes 1 appl, Mem oria ne 3-24 TOP, BID, l Acetonide 1 16:22: PRN For Her ramirez MG/ML 00 rash, # 15 Topical gm, 0 [facility] Common (Triamcinol (Triamcinol 2-17 S pirit one) one) 00:00: - [facility] 00 [facility] Kenalog Kenalog 2019- No 40mg Common (Triamcinol (Triamcinol 2-17 S pirit one) one) 00:00: - [facility] 00 [facility] Kenalog Kenalog 2019- No 40mg Common (Triamcinol (Triamcinol 2-17 S pirit one) one) 00:00: - [facility] 00 [facility] Kenalog Kenalog 2019- No 40mg Common (Triamcinol (Triamcinol 2-17 S pirit one) one) 00:00: - [facility] 00 [facility] Kenalog Kenalog 2019- No 40mg Common (Triamcinol (Triamcinol 2-17 S pirit one) one) 00:00: - [facility] 00 [facility] Kenalog Kenalog 2019- No 40mg Common (Triamcinol (Triamcinol 2-17 S pirit one) one) 00:00: - [facility] 00 [facility] Kenalog Kenalog 2019- No 40mg Common (Triamcinol (Triamcinol 2-17 S pirit one) one) 00:00: - [facility] 00 [facility] Kenalog Kenalog 2019- No 40mg Common (Triamcinol (Triamcinol 2-17 S pirit one) one) 00:00: - [facility] 00 [facility] Kenalog Kenalog 2019- No 40mg Common (Triamcinol (Triamcinol 2-17 S pirit one) one) 00:00: - [facility] 00 [facility] Kenalog Kenalog 2019- No 40mg Common (Triamcinol (Triamcinol 2-17 S pirit one) one) 00:00: - [facility] 00 [facility] Kenalog Kenalog 2019- No 40mg Common (Triamcinol (Triamcinol 2-17 S pirit one) one) 00:00: - [facility] 00 [facility] Kenalog Kenalog 2019- No 40mg Common (Triamcinol (Triamcinol 2-17 S pirit one) one) 00:00: - [facility] 00 [facility] Kenalog Kenalog 2019- No 40mg Common (Triamcinol (Triamcinol 2-17 S pirit one) one) 00:00: - [facility] 00 [facility] Kenalog Kenalog 2019- No 40mg Common (Triamcinol (Triamcinol 2-17 S pirit one) one) 00:00: - [facility] 00 [facility] Kenalog Kenalog 2019- No 40mg Common (Triamcinol (Triamcinol 2-17 S pirit one) one) 00:00: - [facility] 00 [facility] Kenalog Kenalog 2019- No 40mg Common (Triamcinol (Triamcinol 2-17 S pirit one) one) 00:00: - [facility] 00 [facility] Kenalog Kenalog 2019- No 40mg Common (Triamcinol (Triamcinol 2-17 S pirit one) one) 00:00: - [facility] 00 [facility] Kenalog Kenalog 2019-1 No 40mg Common (Triamcinol (Triamcinol 2-17 S pirit one) one) 00:00: - [facility] 00 [facility] No 40mg Common (Triamcinol (Triamcinol 2-17 S pirit one) one) 00:00: - [facility] 00 [facility] Kenalog Kenalog 2019- No 40mg Common (Triamcinol (Triamcinol 2-17 S pirit one) one) 00:00: - [facility] 00 [facility] Kenalog Kenalog 2019- No 40mg Common (Triamcinol (Triamcinol 2-17 S pirit one) one) 00:00: - [facility] 00 [facility]- No 40mg Common (Triamcinol (Triamcinol 2-17 S pirit one) one) 00:00: - [facility] 00 [facility] Ken[facility]- No 40mg Common (Triamcinol (Triamcinol 2-17 S pirit one) one) 00:00: - [facility] 00 [facility] Kenalog Kenalog 2019- No 40mg Common (Triamcinol (Triamcinol 2-17 S pirit one) one) 00:00: - [facility] 00 [facility] Kenalog Kenalog 2019- No 40mg Common (Triamcinol (Triamcinol 2-17 S pirit one) one) 00:00: - [facility] 00 [facility] Kenalog Kenalog 2019- No 40mg Common (Triamcinol (Triamcinol 2-17 S pirit one) one) 00:00: - [facility] 00 [facility] Cyclobenzap Cyclobenzap 2019- No 1{table Cyclobenza rine HCl 5 rine HCl 5 2-11 t_at_be papa HCl MG MG 00:00: dtime_a 5 MG 00 s_neede d} Cyclobenzap Cyclobenzap 2020- No 1{table Cyclobenza rine HCl 5 rine HCl 5 2-11 t_at_be papa HCl MG MG 00:00: dtime_a 5 MG 00 s_neede d} Cyclobenzap Cyclobenzap 2020- No 1{table Cyclobenza rine HCl 5 rine HCl 5 2-11 t_at_be papa HCl MG MG 00:00: dtime_a 5 MG 00 s_neede d} Cyclobenzap Cyclobenzap 2020-1 No 1{table Cyclobenza rine HCl 5 rine HCl 5 2-11 t_at_be papa HCl MG MG 00:00: dtime_a 5 MG 00 s_neede d} Cyclobenzap Cyclobenzap 2020-1 No 1{table Cyclobenza rine HCl 5 rine HCl 5 2-11 t_at_be papa HCl MG MG 00:00: dtime_a 5 MG 00 s_neede d} Cyclobenzap Cyclobenzap 2020-1 No 1{table Cyclobenza rine HCl 5 rine HCl 5 2-11 t_at_be papa HCl MG MG 00:00: dtime_a 5 MG 00 s_neede d} Cyclobenzap Cyclobenzap 2020-1 No 1{table Cyclobenza rine HCl 5 rine HCl 5 2-11 t_at_be papa HCl MG MG 00:00: dtime_a 5 MG 00 s_neede d} Cyclobenzap Cyclobenzap 2020-1 No 1{table Cyclobenza rine HCl 5 rine HCl 5 2-11 t_at_be papa HCl MG MG 00:00: dtime_a 5 MG 00 s_neede d} Cyclobenzap Cyclobenzap 2020-1 No 1{table Cyclobenza rine HCl 5 rine HCl 5 2-11 t_at_be papa HCl MG MG 00:00: dtime_a 5 MG 00 s_neede d} Cyclobenzap Cyclobenzap 2020-1 No 1{table Cyclobenza rine HCl 5 rine HCl 5 2-11 t_at_be papa HCl MG MG 00:00: dtime_a 5 MG 00 s_neede d} Cyclobenzap Cyclobenzap 2020-1 No 1{table Cyclobenza rine HCl 5 rine HCl 5 2-11 t_at_be papa HCl MG MG 00:00: dtime_a 5 MG 00 s_neede d} Cyclobenzap Cyclobenzap 2020-1 No 1{table Cyclobenza rine HCl 5 rine HCl 5 2-11 t_at_be papa HCl MG MG 00:00: dtime_a 5 MG 00 s_neede d} Cyclobenzap Cyclobenzap 2020-1 No 1{table Cyclobenza rine HCl 5 rine HCl 5 2-11 t_at_be papa HCl MG MG 00:00: dtime_a 5 MG 00 s_neede d} Cyclobenzap Cyclobenzap 2020-1 No 1{table Cyclobenza rine HCl 5 rine HCl 5 2-11 t_at_be papa HCl MG MG 00:00: dtime_a 5 MG 00 s_neede d} Cyclobenzap Cyclobenzap 2020-1 No 1{table Cyclobenza rine HCl 5 rine HCl 5 2-11 t_at_be papa HCl MG MG 00:00: dtime_a 5 MG 00 s_neede d} Cyclobenzap Cyclobenzap 2020-1 No 1{table Cyclobenza rine HCl 5 rine HCl 5 2-11 t_at_be papa HCl MG MG 00:00: dtime_a 5 MG 00 s_neede d} Cyclobenzap Cyclobenzap 2020-1 No 1{table Cyclobenza rine HCl 5 rine HCl 5 2-11 t_at_be papa HCl MG MG 00:00: dtime_a 5 MG 00 s_neede d} Cyclobenzap Cyclobenzap 2020-1 No 1{table Cyclobenza rine HCl 5 rine HCl 5 2-11 t_at_be papa HCl MG MG 00:00: dtime_a 5 MG 00 s_neede d} Cyclobenzap Cyclobenzap 2020-1 No 1{table Cyclobenza rine HCl 5 rine HCl 5 2-11 t_at_be papa HCl MG MG 00:00: dtime_a 5 MG 00 s_neede d} Cyclobenzap Cyclobenzap 2020-1 No 1{table Cyclobenza rine HCl 5 rine HCl 5 2-11 t_at_be papa HCl MG MG 00:00: dtime_a 5 MG 00 s_neede d} Cyclobenzap Cyclobenzap 2020-1 No 1{table Cyclobenza rine HCl 5 rine HCl 5 2-11 t_at_be papa HCl MG MG 00:00: dtime_a 5 MG 00 s_neede d} Cyclobenzap Cyclobenzap 2020-1 No 1{table Cyclobenza rine HCl 5 rine HCl 5 2-11 t_at_be papa HCl MG MG 00:00: dtime_a 5 MG 00 s_neede d} Cyclobenzap Cyclobenzap 2020-1 No 1{table Cyclobenza rine HCl 5 rine HCl 5 2-11 t_at_be papa HCl MG MG 00:00: dtime_a 5 MG 00 s_neede d} Cyclobenzap Cyclobenzap 2020-1 No 1{table Cyclobenza rine HCl 5 rine HCl 5 2-11 t_at_be papa HCl MG MG 00:00: dtime_a 5 MG 00 s_neede d} Cyclobenzap Cyclobenzap 2020-1 No 1{table Cyclobenza rine HCl 5 rine HCl 5 2-11 t_at_be papa HCl MG MG 00:00: dtime_a 5 MG 00 s_neede d} Cyclobenzap Cyclobenzap 2020-1 No 1{table Cyclobenza rine HCl 5 rine HCl 5 2-11 t_at_be papa HCl MG MG 00:00: dtime_a 5 MG 00 s_neede d} Cyclobenzap Cyclobenzap 2020-1 No 1{table Cyclobenza rine HCl 5 rine HCl 5 2-11 t_at_be papa HCl MG MG 00:00: dtime_a 5 MG 00 s_neede d} Cyclobenzap Cyclobenzap 2020-1 No 1{table Cyclobenza rine HCl 5 rine HCl 5 2-11 t_at_be papa HCl MG MG 00:00: dtime_a 5 MG 00 s_neede d} Cyclobenzap Cyclobenzap 2020-1 No 1{table Cyclobenza rine HCl 5 rine HCl 5 2-11 t_at_be papa HCl MG MG 00:00: dtime_a 5 MG 00 s_neede d} Cyclobenzap Cyclobenzap 2020-1 No 1{table Cyclobenza rine HCl 5 rine HCl 5 2-11 t_at_be papa HCl MG MG 00:00: dtime_a 5 MG 00 s_neede d} Kenalog Kenalog 2020-1 No 40mg Common (Triamcinol (Triamcinol 2-03 S pirit one) one) 00:00: - [facility] 00 [facility] Kenalog Kenalog 2020- No 40mg Common (Triamcinol (Triamcinol 2-03 S pirit one) one) 00:00: - [facility] 00 [facility] Kenalog Kenalog 2019- No 40mg Common (Triamcinol (Triamcinol 2-03 S pirit one) one) 00:00: - [facility] 00 [facility] Kenalog Kenalog 2019- No 40mg Common (Triamcinol (Triamcinol 2-03 S pirit one) one) 00:00: - [facility] 00 [facility] Kenalog Kenalog 2019- No 40mg Common (Triamcinol (Triamcinol 2-03 S pirit one) one) 00:00: - [facility] 00 [facility] Kenalog Kenalog 2020- No 40mg Common (Triamcinol (Triamcinol 2-03 S pirit one) one) 00:00: - [facility] 00 [facility] Kenalog Kenalog 2019- No 40mg Common (Triamcinol (Triamcinol 2-03 S pirit one) one) 00:00: - [facility] 00 [facility] Kenalog Kenalog 2019- No 40mg Common (Triamcinol (Triamcinol 2-03 S pirit one) one) 00:00: - [facility] 00 [facility] Kenalog Kenalog 2020- No 40mg Common (Triamcinol (Triamcinol 2-03 S pirit one) one) 00:00: - [facility] 00 [facility] Kenalog Kenalog 2020- No 40mg Common (Triamcinol (Triamcinol 2-03 S pirit one) one) 00:00: - [facility] 00 [facility] Kenalog Kenalog 2020- No 40mg Common (Triamcinol (Triamcinol 2-03 S pirit one) one) 00:00: - [facility] 00 [facility] Kenalog Kenalog 2020- No 40mg Common (Triamcinol (Triamcinol 2-03 S pirit one) one) 00:00: - [facility] 00 [facility] Kenalog Kenalog 2019- No 40mg Common (Triamcinol (Triamcinol 2-03 S pirit one) one) 00:00: - [facility] 00 [facility] Kenalog Kenalog 2019- No 40mg Common (Triamcinol (Triamcinol 2-03 S pirit one) one) 00:00: - [facility] 00 [facility] Kenalog Kenalog 2019- No 40mg Common (Triamcinol (Triamcinol 2-03 S pirit one) one) 00:00: - [facility] 00 [facility] Kenalog Kenalog 2019- No 40mg Common (Triamcinol (Triamcinol 2-03 S pirit one) one) 00:00: - [facility] 00 [facility] Kenalog Kenalog 2019- No 40mg Common (Triamcinol (Triamcinol 2-03 S pirit one) one) 00:00: - [facility] 00 [facility] Kenalog Kenalog 2019- No 40mg Common (Triamcinol (Triamcinol 2-03 S pirit one) one) 00:00: - [facility] 00 [facility] Kenalog Kenalog 2019- No 40mg Common (Triamcinol (Triamcinol 2-03 S pirit one) one) 00:00: - [facility] 00 [facility] Kenalog Kenalog 2019- No 40mg Common (Triamcinol (Triamcinol 2-03 S pirit one) one) 00:00: - [facility] 00 [facility] Kenalog Kenalog 2019- No 40mg Common (Triamcinol (Triamcinol 2-03 S pirit one) one) 00:00: - [facility] 00 [facility] Kenalog Kenalog 2019- No 40mg Common (Triamcinol (Triamcinol 2-03 S pirit one) one) 00:00: - [facility] 00 [facility] Kenalog Kenalog 2019- No 40mg Common (Triamcinol (Triamcinol 2-03 S pirit one) one) 00:00: - [facility] 00 [facility] Kenalog Kenalog 2019- No 40mg Common (Triamcinol (Triamcinol 2-03 S pirit one) one) 00:00: - [facility] 00 [facility] Kenalog Kenalog 2019- No 40mg Common (Triamcinol (Triamcinol 2-03 S pirit one) one) 00:00: - [facility] 00 [facility] Kenalog Kenalog 2019- No 40mg Common (Triamcinol (Triamcinol 2-03 S pirit one) one) 00:00: - [facility] 00 [facility] Kenalog Kenalog 2019- No 40mg Common (Triamcinol (Triamcinol 1-18 S pirit one) one) 00:00: - [facility] 00 [facility] Kenalog Kenalog 2019- No 40mg Common (Triamcinol (Triamcinol 1-18 S pirit one) one) 00:00: - [facility] 00 [facility] Kenalog Kenalog 2019- No 40mg Common (Triamcinol (Triamcinol 1-18 S pirit one) one) 00:00: - [facility] 00 [facility] Kenalog Kenalog 2019- No 40mg Common (Triamcinol (Triamcinol 1-18 S pirit one) one) 00:00: - [facility] 00 [facility] Kenalog Kenalog 2019- No 40mg Common (Triamcinol (Triamcinol 1-18 S pirit one) one) 00:00: - [facility] 00 [facility] Kenalog Kenalog 2019- No 40mg Common (Triamcinol (Triamcinol 1-18 S pirit one) one) 00:00: - [facility] 00 [facility] Kenalog Kenalog 2019- No 40mg Common (Triamcinol (Triamcinol 1-18 S pirit one) one) 00:00: - [facility] 00 [facility] Kenalog Kenalog 2019- No 40mg Common (Triamcinol (Triamcinol 1-18 S pirit one) one) 00:00: - [facility] 00 [facility] Kenalog Kenalog 2019- No 40mg Common (Triamcinol (Triamcinol 1-18 S pirit one) one) 00:00: - [facility] 00 [facility] Kenalog Kenalog 2019- No 40mg Common (Triamcinol (Triamcinol 1-18 S pirit one) one) 00:00: - [facility] 00 [facility] Kenalog Kenalog 2019- No 40mg Common (Triamcinol (Triamcinol 1-18 S pirit one) one) 00:00: - [facility] 00 [facility] Kenalog Kenalog 2019- No 40mg Common (Triamcinol (Triamcinol 1-18 S pirit one) one) 00:00: - [facility] 00 [facility] Kenalog Kenalog 2019- No 40mg Common (Triamcinol (Triamcinol 1-18 S pirit one) one) 00:00: - [facility] 00 [facility] Kenalog Kenalog 2019- No 40mg Common (Triamcinol (Triamcinol 1-18 S pirit one) one) 00:00: - [facility] 00 [facility] Kenalog Kenalog 2019- No 40mg Common (Triamcinol (Triamcinol 1-18 S pirit one) one) 00:00: - [facility] 00 [facility] Kenalog Kenalog 2019- No 40mg Common (Triamcinol (Triamcinol 1-18 S pirit one) one) 00:00: - [facility] 00 [facility] Kenalog Kenalog 2019- No 40mg Common (Triamcinol (Triamcinol 1-18 S pirit one) one) 00:00: - [facility] 00 [facility] Kenalog Kenalog 2019- No 40mg Common (Triamcinol (Triamcinol 1-18 S pirit one) one) 00:00: - [facility] 00 [facility] Kenalog Kenalog 2019- No 40mg Common (Triamcinol (Triamcinol 1-18 S pirit one) one) 00:00: - [facility] 00 [facility] Kenalog Kenalog 2019- No 40mg Common (Triamcinol (Triamcinol 1-18 S pirit one) one) 00:00: - [facility] 00 [facility] Kenalog Kenalog 2019- No 40mg Common (Triamcinol (Triamcinol 1-18 S pirit one) one) 00:00: - [facility] 00 [facility] Kenalog Kenalog 2019- No 40mg Common (Triamcinol (Triamcinol 1-18 S pirit one) one) 00:00: - [facility] 00 [facility] Kenalog Kenalog 2019- No 40mg Common (Triamcinol (Triamcinol 1-18 S pirit one) one) 00:00: - [facility] 00 [facility] Kenalog Kenalog 2019- No 40mg Common (Triamcinol (Triamcinol 1-18 S pirit one) one) 00:00: - [facility] 00 [facility] Kenalog Kenalog 2019- No 40mg Common (Triamcinol (Triamcinol 1-18 S pirit one) one) 00:00: - [facility] 00 [facility] Kenalog Kenalog 2019- No 40mg Common (Triamcinol (Triamcinol 1-18 S pirit one) one) 00:00: - [facility] 00 [facility] Kenalog Kenalog 2019- No 40mg Common (Triamcinol (Triamcinol 0-30 S pirit one) one) 00:00: - [facility] 00 [facility] Kenalog Kenalog 2019- No 40mg Common (Triamcinol (Triamcinol 0-30 S pirit one) one) 00:00: - [facility] 00 [facility] Kenalog Kenalog 2019- No 40mg Common (Triamcinol (Triamcinol 0-30 S pirit one) one) 00:00: - [facility] 00 [facility] Kenalog Kenalog 2019- No 40mg Common (Triamcinol (Triamcinol 0-30 S pirit one) one) 00:00: - [facility] 00 [facility] Kenalog Kenalog 2019- No 40mg Common (Triamcinol (Triamcinol 0-30 S pirit one) one) 00:00: - [facility] 00 [facility] Kenalog Kenalog 2019- No 40mg Common (Triamcinol (Triamcinol 0-30 S pirit one) one) 00:00: - [facility] 00 [facility] Kenalog Kenalog 2019- No 40mg Common (Triamcinol (Triamcinol 0-30 S pirit one) one) 00:00: - [facility] 00 [facility] Kenalog Kenalog 2019- No 40mg Common (Triamcinol (Triamcinol 0-30 S pirit one) one) 00:00: - [facility] 00 [facility] Kenalog Kenalog 2019- No 40mg Common (Triamcinol (Triamcinol 0-30 S pirit one) one) 00:00: - [facility] 00 [facility] Kenalog Kenalog 2019- No 40mg Common (Triamcinol (Triamcinol 0-30 S pirit one) one) 00:00: - [facility] 00 [facility] Kenal[facility] 2019- No 40mg Common (Triamcinol (Triamcinol 0-30 S pirit one) one) 00:00: - [facility] 00 [facility] Kenalog Kenalog 2019- No 40mg Common (Triamcinol (Triamcinol 0-30 S pirit one) one) 00:00: - [facility] 00 [facility] Kenalog Kenalog 2019- No 40mg Common (Triamcinol (Triamcinol 0-30 S pirit one) one) 00:00: - [facility] 00 [facility] Kenalog Kenalog 2019- No 40mg Common (Triamcinol (Triamcinol 0-30 S pirit one) one) 00:00: - [facility] 00 [facility] Kenalog Kenalog 2019- No 40mg Common (Triamcinol (Triamcinol 0-30 S pirit one) one) 00:00: - [facility] 00 [facility] Kenalog Kenalog 2019- No 40mg Common (Triamcinol (Triamcinol 0-30 S pirit one) one) 00:00: - [facility] 00 [facility] Kenalog Kenalog 2019- No 40mg Common (Triamcinol (Triamcinol 0-30 S pirit one) one) 00:00: - [facility] 00 [facility] Kenalog Kenalog 2019- No 40mg Common (Triamcinol (Triamcinol 0-30 S pirit one) one) 00:00: - [facility] 00 [facility] Kenalog Kenalog 2019- No 40mg Common (Triamcinol (Triamcinol 0-30 S pirit one) one) 00:00: - [facility] 00 [facility] Kenalog Kenalog 2019- No 40mg Common (Triamcinol (Triamcinol 0-30 S pirit one) one) 00:00: - [facility] 00 [facility] Ken[facility]og Kenalog 2019- No 40mg Common (Triamcinol (Triamcinol 0-30 S pirit one) one) 00:00: - [facility]I 00 [facility] [employer] Kenalog 2019- No 40mg Common (Triamcinol (Triamcinol 0-30 S pirit one) one) 00:00: - [facility] 00 [facility]- No 40mg Common (Triamcinol (Triamcinol 0-30 S pirit one) one) 00:00: - [facility] 00 [facility] 2019- No 40mg Common (Triamcinol (Triamcinol 0-30 S pirit one) one) 00:00: - [facility] 00 [facility] 2019- No 40mg Common (Triamcinol (Triamcinol 0-30 S pirit one) one) 00:00: - [facility]I 00 [facility] [employer] Kenalog 2019- No 40mg Common (Triamcinol (Triamcinol 0-30 S pirit one) one) 00:00: - [facility]I 00 [facility] [employer] Kenalog 2019- No 40mg Common (Triamcinol (Triamcinol 0-16 S pirit one) one) 00:00: - [facility]I 00 [facility] [employer] Kenalog 2019- No 40mg Common (Triamcinol (Triamcinol 0-16 S pirit one) one) 00:00: - [facility]I 00 [facility] [employer] Kenalog 2019- No 40mg Common (Triamcinol (Triamcinol 0-16 S pirit one) one) 00:00: - [facility]I 00 [facility] [employer] Kenalog 2019- No 40mg Common (Triamcinol (Triamcinol 0-16 S pirit one) one) 00:00: - [facility]I 00 [facility] [employer] Kenalog 2019- No 40mg Common (Triamcinol (Triamcinol 0-16 S pirit one) one) 00:00: - [facility]I 00 [facility] [employer] Kenalog 2019- No 40mg Common (Triamcinol (Triamcinol 0-16 S pirit one) one) 00:00: - [facility] 00 [facility] Kenalog Kenalog 2019- No 40mg Common (Triamcinol (Triamcinol 0-16 S pirit one) one) 00:00: - [facility] 00 [facility] Kenalog Kenalog 2019- No 40mg Common (Triamcinol (Triamcinol 0-16 S pirit one) one) 00:00: - [facility] 00 [facility] Kenalog Kenalog 2019- No 40mg Common (Triamcinol (Triamcinol 0-16 S pirit one) one) 00:00: - [facility] 00 [facility] Kenalog Kenalog 2019- No 40mg Common (Triamcinol (Triamcinol 0-16 S pirit one) one) 00:00: - [facility] 00 [facility] Kenalog Kenalog 2019- No 40mg Common (Triamcinol (Triamcinol 0-16 S pirit one) one) 00:00: - [facility] 00 [facility] Kenalog Kenalog 2019- No 40mg Common (Triamcinol (Triamcinol 0-16 S pirit one) one) 00:00: - [facility] 00 [facility] Kenalog Kenalog 2019- No 40mg Common (Triamcinol (Triamcinol 0-16 S pirit one) one) 00:00: - [facility] 00 [facility] Kenalog Kenalog 2019- No 40mg Common (Triamcinol (Triamcinol 0-16 S pirit one) one) 00:00: - [facility] 00 [facility] Kenalog Kenalog 2019- No 40mg Common (Triamcinol (Triamcinol 0-16 S pirit one) one) 00:00: - [facility] 00 [facility] Kenalog Kenalog 2019- No 40mg Common (Triamcinol (Triamcinol 0-16 S pirit one) one) 00:00: - [facility] 00 [facility] Kenalog Kenalog 2019- No 40mg Common (Triamcinol (Triamcinol 0-16 S pirit one) one) 00:00: - [facility] 00 [facility] Kenalog Kenalog 2019- No 40mg Common (Triamcinol (Triamcinol 0-16 S pirit one) one) 00:00: - [facility] 00 [facility] Kenalog Kenalog 2019- No 40mg Common (Triamcinol (Triamcinol 0-16 S pirit one) one) 00:00: - [facility] 00 [facility] Ken[facility]- No 40mg Common (Triamcinol (Triamcinol 0-16 S pirit one) one) 00:00: - [facility] 00 [facility] Ken[facility]og 2019- No 40mg Common (Triamcinol (Triamcinol 0-16 S pirit one) one) 00:00: - [facility] 00 [facility] Kenalog Kenalog 2019- No 40mg Common (Triamcinol (Triamcinol 0-16 S pirit one) one) 00:00: - [facility] 00 [facility] Kenrip Kenalog 2019- No 40mg Common (Triamcinol (Triamcinol 0-16 S pirit one) one) 00:00: - [facility] 00 [facility] Kenalog Kenalog 2019- No 40mg Common (Triamcinol (Triamcinol 0-16 S pirit one) one) 00:00: - [facility] 00 [facility] Kenalog Kenalog 2019- No 40mg Common (Triamcinol (Triamcinol 0-16 S pirit one) one) 00:00: - [facility] 00 [facility] Kenalog Kenalog 2019- No 40mg Common (Triamcinol (Triamcinol 0-16 S pirit one) one) 00:00: - [facility] 00 [facility] PrednisoLON PrednisoLON 2020- No [place] 1.6 ml Common E Sodium E Sodium 8-25 09-22 [place] once a day [facility] Phosphate Phosphate 00:00: 00:00 x3 weeks, - [facility] 00 :[address] [facility] PredniSONE PredniSONE 2019-0 2020- No [place] 2 tablets Common 01-13 [place] with food [facility] 00:00: 00:00 or milk x - [facility] 00 :[address] [facility] ProAir HFA 2019-0 Yes 1 - 2 Mem[facility] a 7-01 puffs, PO, l 16:43: Q4H, PRN [place] 00 Wheezing / cough / shortness of breath, # 1 ea, 0 Refill(s) Indomethaci 2019-0 Yes 0 Memori a n 7-01 Refill(s) l 16:43: [place] Valium 2019-0 Yes 0 Memoria 7-01 Refill(s) l 16:43: [place] Tramadol 2019-0 Yes 50 mg, PO, Mem oria 7-01 Q4-6H, PRN l 16:43: Pain, # 20 [place] 00 tab, 0 Refill(s) ProAir HFA 2019-0 Yes 1 - 2 Memori a 7-01 puffs, PO, l 16:43: Q4H, PRN [place] 00 Wheezing / cough / shortness of breath, # 1 ea, 0 Refill(s) Indomethaci 2019-0 Yes 0 Memori a n 7-01 Refill(s) l 16:43: [place] 00 Valium 2019-0 Yes 0 Memoria 7-01 Refill(s) l 16:43: [place] 00 Tramadol 2019-0 Yes 50 mg, PO, Mem oria 7-01 Q4-6H, PRN l 16:43: Pain, # 20 [place] 00 tab, 0 Refill(s) ProAir HFA 2019-0 Yes 1 - 2 Mem[facility] a 7-01 puffs, PO, l 16:43: Q4H, PRN [place] 00 Wheezing / cough / shortness of breath, # 1 ea, 0 Refill(s) Indomethaci 2019-0 Yes 0 Memori a n 7-01 Refill(s) l 16:43: [place] Valium 2019-0 Yes 0 Memoria 7-01 Refill(s) l 16:43: [place] 00 Tramadol 2019-0 Yes 50 mg, PO, Mem oria 7-01 Q4-6H, PRN l 16:43: Pain, # 20 [place] 00 tab, 0 Refill(s) ProAir HFA 2019-0 Yes 1 - 2 Mem[facility] a 7-01 puffs, PO, l 16:43: Q4H, PRN [place] 00 Wheezing / cough / shortness of breath, # 1 ea, 0 Refill(s) ProAir HFA 2019-0 Yes 1 - 2 Mem[facility] a 7-01 puffs, PO, l 16:43: Q4H, PRN [place] 00 Wheezing / cough / shortness of breath, # 1 ea, 0 Refill(s) Indomethaci 2019-0 Yes 0 Memori a n 7-01 Refill(s) l 16:43: [place] 00 Valium 2019-0 Yes 0 Memoria 7-01 Refill(s) l 16:43: [place] 00 Tramadol 2019-0 Yes 50 mg, PO, Mem oria 7-01 Q4-6H, PRN l 16:43: Pain, # 20 [place] 00 tab, 0 Refill(s) ProAir HFA 2019-0 Yes 1 - 2 Mem[facility] a 7-01 puffs, PO, l 16:43: Q4H, PRN [place] 00 Wheezing / cough / shortness of breath, # 1 ea, 0 Refill(s) ProAir HFA 2019-0 Yes 1 - 2 [facility] a 7-01 puffs, PO, l 16:43: Q4H, PRN [place] 00 Wheezing / cough / shortness of breath, # 1 ea, 0 Refill(s) Indomethaci 2019-0 Yes 0 Memori a n 7-01 Refill(s) l 16:43: [place] 00 Valium 2019-0 Yes 0 Memoria 7-01 Refill(s) l 16:43: [place] 00 Tramadol 2019-0 Yes 50 mg, PO, Mem oria 7-01 Q4-6H, PRN l 16:43: Pain, # 20 [place] 00 tab, 0 Refill(s) ProAir HFA 2019-0 Yes 1 - 2 Memori a 7-01 puffs, PO, l 16:43: Q4H, PRN [place] 00 Wheezing / cough / shortness of breath, # 1 ea, 0 Refill(s) ProAir HFA 2019-0 Yes 1 - 2 Mem[facility] a 7-01 puffs, PO, l 16:43: Q4H, PRN [place] 00 Wheezing / cough / shortness of breath, # 1 ea, 0 Refill(s) Indomethaci 2019-0 Yes 0 Memori a n 7-01 Refill(s) l 16:43: [place] 00 Valium 2019-0 Yes 0 Mem[facility] 7-01 Refill(s) l 16:43: [place] 00 Tramadol 2019-0 Yes 50 mg, PO, Mem oria 7-01 Q4-6H, PRN l 16:43: Pain, # 20 [place] 00 tab, 0 Refill(s) ProAir HFA 2019-0 Yes 1 - 2 Memori a 7-01 puffs, PO, l 16:43: Q4H, PRN [place] 00 Wheezing / cough / shortness of breath, # 1 ea, 0 Refill(s) ProAir HFA 2019-0 Yes 1 - 2 Mem[facility] a 7-01 puffs, PO, l 16:43: Q4H, PRN [place] 00 Wheezing / cough / shortness of breath, # 1 ea, 0 Refill(s) Indomethaci 2019-0 Yes 0 Memori a n 7-01 Refill(s) l 16:43: [place] 00 Valium 2019-0 Yes 0 Memoria 7-01 Refill(s) l 16:43: [place] 00 Tramadol 2019-0 Yes 50 mg, PO, Mem oria 7-01 Q4-6H, PRN l 16:43: Pain, # 20 [place] 00 tab, 0 Refill(s) ProAir HFA 2019-0 Yes 1 - 2 Mem[facility] a 7-01 puffs, PO, l 16:43: Q4H, PRN [place] 00 Wheezing / cough / shortness of breath, # 1 ea, 0 Refill(s) ProAir HFA 2019-0 Yes 1 - 2 Mem[facility] a 7-01 puffs, PO, l 16:43: Q4H, PRN [place] 00 Wheezing / cough / shortness of breath, # 1 ea, 0 Refill(s) Indomethaci 2019-0 Yes 0 Memori a n 7-01 Refill(s) l 16:43: [place] 00 Valium 2019-0 Yes 0 Memoria 7-01 Refill(s) l 16:43: [place] 00 Tramadol 2019-0 Yes 50 mg, PO, Mem oria 7-01 Q4-6H, PRN l 16:43: Pain, # 20 [place] 00 tab, 0 Refill(s) ProAir HFA 2019-0 Yes 1 - 2 Mem[facility] a 7-01 puffs, PO, l 16:43: Q4H, PRN [place] 00 Wheezing / cough / shortness of breath, # 1 ea, 0 Refill(s) ProAir HFA 0 Yes 1 - 2 Mem[facility] a 7-01 puffs, PO, l 16:43: Q4H, PRN [place] 00 Wheezing / cough / shortness of breath, # 1 ea, 0 Refill(s) Indomethaci 0 Yes 0 Memori a n 7-01 Refill(s) l 16:43: [place] 00 Valium 0 Yes 0 Memoria 7-01 Refill(s) l 16:43: [place] 00 Tramadol 2018-0 Yes 50 mg, PO, Mem oria 7-01 Q4-6H, PRN l 16:43: Pain, # 20 [place] 00 tab, 0 Refill(s) ProAir HFA 0 Yes 1 - 2 Memori a 7-01 puffs, PO, l 16:43: Q4H, PRN [place] 00 Wheezing / cough / shortness of breath, # 1 ea, 0 Refill(s) albuterol Yes [id number] 2.5mg Inhale 3 [facility] 2.5 mg /3 4-17 mL every 6 ity of mL (0.083 00:00: (six) [place] %) 00 hours as Medical nebulizer needed for Bran ch solution Wheezing or Shortness of Breath. albuterol Yes [id number] 2.5mg Inhale 3 [facility] 2.5 mg /3 4-17 mL every 6 ity of mL (0.083 00:00: (six) [place] %) 00 hours as Medical nebulizer needed for Bran ch solution Wheezing or Shortness of Breath. albuterol Yes [id number] 2.5mg Inhale 3 [facility] 2.5 mg /3 4-17 mL every 6 ity of mL (0.083 00:00: (six) [place] %) 00 hours as Medical nebulizer needed for Bran ch solution Wheezing or Shortness of Breath. albuterol 2019-0 Yes [id number] 2.5mg Inhale 3 [facility] 2.5 mg /3 4-17 mL every 6 ity of mL (0.083 00:00: (six) [place] %) 00 hours as Medical nebulizer needed for Bran ch solution Wheezing or Shortness of Breath. albuterol 2019-0 Yes [id number] 2.5mg Inhale 3 [facility] 2.5 mg /3 4-17 mL every 6 ity of mL (0.083 00:00: (six) [place] %) 00 hours as Medical nebulizer needed for Bran ch solution Wheezing or Shortness of Breath. albuterol 2019-0 Yes [id number] 2.5mg Inhale 3 [facility] 2.5 mg /3 4-17 mL every 6 ity of mL (0.083 00:00: (six) [place] %) 00 hours as Medical nebulizer needed for Bran ch solution Wheezing or Shortness of Breath. albuterol 2019-0 Yes [id number] 2.5mg Inhale 3 [facility] 2.5 mg /3 4-17 mL every 6 ity of mL (0.083 00:00: (six) [place] %) 00 hours as Medical nebulizer needed for Bran ch solution Wheezing or Shortness of Breath. albuterol 2019-0 Yes [id number] 2.5mg Inhale 3 [facility] 2.5 mg /3 4-17 mL every 6 ity of mL (0.083 00:00: (six) [place] %) 00 hours as Medical nebulizer needed for Bran ch solution Wheezing or Shortness of Breath. albuterol 2019-0 Yes [id number] 2.5mg Inhale 3 [facility] 2.5 mg /3 4-17 mL every 6 ity of mL (0.083 00:00: (six) [place] %) 00 hours as Medical nebulizer needed for Bran ch solution Wheezing or Shortness of Breath. albuterol 2019-0 Yes [id number] 2.5mg Inhale 3 [facility] 2.5 mg /3 4-17 mL every 6 ity of mL (0.083 00:00: (six) [place] %) 00 hours as Medical nebulizer needed for Bran ch solution Wheezing or Shortness of Breath. albuterol 2019- Yes [id number] 2.5mg Inhale 3 [facility] 2.5 mg /3 4-17 mL every 6 ity of mL (0.083 00:00: (six) [place] %) 00 hours as Medical nebulizer needed for Bran ch solution Wheezing or Shortness of Breath. albuterol 2018- Yes [id number] 2.5mg Inhale 3 [facility] 2.5 mg /3 4-17 mL every 6 ity of mL (0.083 00:00: (six) [place] %) 00 hours as Medical nebulizer needed for Bran ch solution Wheezing or Shortness of Breath. albuterol 2018-0 Yes [id number] 2.5mg Inhale 3 [facility] 2.5 mg /3 4-17 mL every 6 ity of mL (0.083 00:00: (six) [place] %) 00 hours as Medical nebulizer needed for Bran ch solution Wheezing or Shortness of Breath. albuterol 2018- Yes [id number] 2.5mg Inhale 3 [facility] 2.5 mg /3 4-17 mL every 6 ity of mL (0.083 00:00: (six) [place] %) 00 hours as Medical nebulizer needed for Bran ch solution Wheezing or Shortness of Breath. albuterol 2018-0 Yes [id number] 2.5mg Inhale 3 [facility] 2.5 mg /3 4-17 mL every 6 ity of mL (0.083 00:00: (six) [place] %) 00 hours as Medical nebulizer needed for Bran ch solution Wheezing or Shortness of Breath. albuterol Yes Q4H every 4 Metho di (PROAIR 3-27 (four) st HFA) 90 00:00: hours as [facility] a mcg/actuati 00 needed. l on inhaler Albuterol Albuterol No Albuterol Sulfate HFA Sulfate HFA Sulfate 108 (90 108 (90 HFA 108 Base) Base) (90 Base) MCG/ACT MCG/ACT MCG/ACT Albuterol Albuterol No Albuterol Sulfate Sulfate Sulfate (2.5 (2.5 (2.5 MG/3ML) MG/3ML) MG/3ML) 0.083% 0.083% 0.083% predniSONE predniSONE No QD predniSONE 20 MG 20 MG 20 MG predniSONE predniSONE No 1{table QD predniSONE 10 MG 10 MG t} 10 MG predniSONE predniSONE No QD predniSONE 20 MG 20 MG 20 MG diazePAM 2 diazePAM 2 No 1{table QD diazePAM 2 MG MG t_as_ne MG eded} Albuterol Albuterol No Albuterol Sulfate HFA Sulfate HFA Sulfate 108 (90 108 (90 HFA 108 Base) Base) (90 Base) MCG/ACT MCG/ACT MCG/ACT Albuterol Albuterol No Albuterol Sulfate Sulfate Sulfate (2.5 (2.5 (2.5 MG/3ML) MG/3ML) MG/3ML) 0.083% 0.083% 0.083% ProAir HFA ProAir HFA No 6xD ProAir HFA 108 (90 108 (90 108 (90 Base) Base) Base) MCG/ACT MCG/ACT MCG/ACT ProAir HFA ProAir HFA No 6xD ProAir HFA 108 (90 108 (90 108 (90 Base) Base) Base) MCG/ACT MCG/ACT MCG/ACT Albuterol Albuterol No Albuterol Sulfate HFA Sulfate HFA Sulfate 108 (90 108 (90 HFA 108 Base) Base) (90 Base) MCG/ACT MCG/ACT MCG/ACT Albuterol Albuterol No 3{ml_as TID Albuterol Sulfate Sulfate _needed Sulfate (2.5 (2.5 } (2.5 MG/3ML) MG/3ML) MG/3ML) 0.083% 0.083% 0.083% predniSONE predniSONE No 1{table QD predniSONE 10 MG 10 MG t} 10 MG predniSONE predniSONE No QD predniSONE 20 MG 20 MG 20 MG diazePAM 2 diazePAM 2 No 1{table QD diazePAM 2 MG MG t_as_ne MG eded} Albuterol Albuterol No Albuterol Sulfate Sulfate Sulfate (2.5 (2.5 (2.5 MG/3ML) MG/3ML) MG/3ML) 0.083% 0.083% 0.083% Gabapentin Gabapentin No 1{table BID Gabapentin 300 MG 300 MG t} 300 MG ProAir HFA ProAir HFA No 1{puff_ 6xD ProAir HFA 108 (90 108 (90 as_need 108 (90 Base) Base) ed} Base) MCG/ACT MCG/ACT MCG/ACT ProAir HFA ProAir HFA No 6xD ProAir HFA 108 (90 108 (90 108 (90 Base) Base) Base) MCG/ACT MCG/ACT MCG/ACT Albuterol Albuterol No Albuterol Sulfate HFA Sulfate HFA Sulfate 108 (90 108 (90 HFA 108 Base) Base) (90 Base) MCG/ACT MCG/ACT MCG/ACT Albuterol Albuterol No 3{ml_as TID Albuterol Sulfate Sulfate _needed Sulfate (2.5 (2.5 } (2.5 MG/3ML) MG/3ML) MG/3ML) 0.083% 0.083% 0.083% predniSONE predniSONE No 1{table QD predniSONE 10 MG 10 MG t} 10 MG predniSONE predniSONE No QD predniSONE 20 MG 20 MG 20 MG diazePAM 2 diazePAM 2 No 1{table QD diazePAM 2 MG MG t_as_ne MG eded} Albuterol Albuterol No Albuterol Sulfate Sulfate Sulfate (2.5 (2.5 (2.5 MG/3ML) MG/3ML) MG/3ML) 0.083% 0.083% 0.083% Gabapentin Gabapentin No 1{table BID Gabapentin 300 MG 300 MG t} 300 MG ProAir HFA ProAir HFA No 1{puff_ 6xD ProAir HFA 108 (90 108 (90 as_need 108 (90 Base) Base) ed} Base) MCG/ACT MCG/ACT MCG/ACT ProAir HFA ProAir HFA No 6xD ProAir HFA 108 (90 108 (90 108 (90 Base) Base) Base) MCG/ACT MCG/ACT MCG/ACT Albuterol Albuterol No Albuterol Sulfate HFA Sulfate HFA Sulfate 108 (90 108 (90 HFA 108 Base) Base) (90 Base) MCG/ACT MCG/ACT MCG/ACT Albuterol Albuterol No 3{ml_as TID Albuterol Sulfate Sulfate _needed Sulfate (2.5 (2.5 } (2.5 MG/3ML) MG/3ML) MG/3ML) 0.083% 0.083% 0.083% predniSONE predniSONE No 1{table QD predniSONE 10 MG 10 MG t} 10 MG predniSONE predniSONE No QD predniSONE 20 MG 20 MG 20 MG diazePAM 2 diazePAM 2 No 1{table QD diazePAM 2 MG MG t_as_ne MG eded} Albuterol Albuterol No Albuterol Sulfate Sulfate Sulfate (2.5 (2.5 (2.5 MG/3ML) MG/3ML) MG/3ML) 0.083% 0.083% 0.083% Gabapentin Gabapentin No 1{table BID Gabapentin 300 MG 300 MG t} 300 MG ProAir HFA ProAir HFA No 1{puff_ 6xD ProAir HFA 108 (90 108 (90 as_need 108 (90 Base) Base) ed} Base) MCG/ACT MCG/ACT MCG/ACT ProAir HFA ProAir HFA No 6xD ProAir HFA 108 (90 108 (90 108 (90 Base) Base) Base) MCG/ACT MCG/ACT MCG/ACT Albuterol Albuterol No Albuterol Sulfate HFA Sulfate HFA Sulfate 108 (90 108 (90 HFA 108 Base) Base) (90 Base) MCG/ACT MCG/ACT MCG/ACT Albuterol Albuterol No 3{ml_as TID Albuterol Sulfate Sulfate _needed Sulfate (2.5 (2.5 } (2.5 MG/3ML) MG/3ML) MG/3ML) 0.083% 0.083% 0.083% predniSONE predniSONE No 1{table QD predniSONE 10 MG 10 MG t} 10 MG predniSONE predniSONE No QD predniSONE 20 MG 20 MG 20 MG diazePAM 2 diazePAM 2 No 1{table QD diazePAM 2 MG MG t_as_ne MG eded} Albuterol Albuterol No Albuterol Sulfate Sulfate Sulfate (2.5 (2.5 (2.5 MG/3ML) MG/3ML) MG/3ML) 0.083% 0.083% 0.083% Gabapentin Gabapentin No 1{table BID Gabapentin 300 MG 300 MG t} 300 MG ProAir HFA ProAir HFA No 1{puff_ 6xD ProAir HFA 108 (90 108 (90 as_need 108 (90 Base) Base) ed} Base) MCG/ACT MCG/ACT MCG/ACT Gabapentin Gabapentin No 1{table BID Gabapentin 300 MG 300 MG t} 300 MG Albuterol Albuterol No Albuterol Sulfate HFA Sulfate HFA Sulfate 108 (90 108 (90 HFA 108 Base) Base) (90 Base) MCG/ACT MCG/ACT MCG/ACT Albuterol Albuterol No Albuterol Sulfate Sulfate Sulfate (2.5 (2.5 (2.5 MG/3ML) MG/3ML) MG/3ML) 0.083% 0.083% 0.083% ProAir HFA ProAir HFA No 1{puff_ 6xD ProAir HFA 108 (90 108 (90 as_need 108 (90 Base) Base) ed} Base) MCG/ACT MCG/ACT MCG/ACT predniSONE predniSONE No QD predniSONE 20 MG 20 MG 20 MG diazePAM 2 diazePAM 2 No 1{table QD diazePAM 2 MG MG t_as_ne MG eded} predniSONE predniSONE No 1{table QD predniSONE 10 MG 10 MG t} 10 MG ProAir HFA ProAir HFA No 6xD ProAir HFA 108 (90 108 (90 108 (90 Base) Base) Base) MCG/ACT MCG/ACT MCG/ACT Gabapentin Gabapentin No 1{table BID Gabapentin 300 MG 300 MG t} 300 MG Albuterol Albuterol No Albuterol Sulfate HFA Sulfate HFA Sulfate 108 (90 108 (90 HFA 108 Base) Base) (90 Base) MCG/ACT MCG/ACT MCG/ACT Albuterol Albuterol No Albuterol Sulfate Sulfate Sulfate (2.5 (2.5 (2.5 MG/3ML) MG/3ML) MG/3ML) 0.083% 0.083% 0.083% ProAir HFA ProAir HFA No 1{puff_ 6xD ProAir HFA 108 (90 108 (90 as_need 108 (90 Base) Base) ed} Base) MCG/ACT MCG/ACT MCG/ACT predniSONE predniSONE No QD predniSONE 20 MG 20 MG 20 MG diazePAM 2 diazePAM 2 No 1{table QD diazePAM 2 MG MG t_as_ne MG eded} predniSONE predniSONE No 1{table QD predniSONE 10 MG 10 MG t} 10 MG ProAir HFA ProAir HFA No 6xD ProAir HFA 108 (90 108 (90 108 (90 Base) Base) Base) MCG/ACT MCG/ACT MCG/ACT Gabapentin Gabapentin No 1{table BID Gabapentin 300 MG 300 MG t} 300 MG Albuterol Albuterol No Albuterol Sulfate HFA Sulfate HFA Sulfate 108 (90 108 (90 HFA 108 Base) Base) (90 Base) MCG/ACT MCG/ACT MCG/ACT Albuterol Albuterol No Albuterol Sulfate Sulfate Sulfate (2.5 (2.5 (2.5 MG/3ML) MG/3ML) MG/3ML) 0.083% 0.083% 0.083% ProAir HFA ProAir HFA No 1{puff_ 6xD ProAir HFA 108 (90 108 (90 as_need 108 (90 Base) Base) ed} Base) MCG/ACT MCG/ACT MCG/ACT predniSONE predniSONE No QD predniSONE 20 MG 20 MG 20 MG diazePAM 2 diazePAM 2 No 1{table QD diazePAM 2 MG MG t_as_ne MG eded} predniSONE predniSONE No 1{table QD predniSONE 10 MG 10 MG t} 10 MG ProAir HFA ProAir HFA No 6xD ProAir HFA 108 (90 108 (90 108 (90 Base) Base) Base) MCG/ACT MCG/ACT MCG/ACT Gabapentin Gabapentin No 1{table BID Gabapentin 300 MG 300 MG t} 300 MG Albuterol Albuterol No Albuterol Sulfate HFA Sulfate HFA Sulfate 108 (90 108 (90 HFA 108 Base) Base) (90 Base) MCG/ACT MCG/ACT MCG/ACT Albuterol Albuterol No Albuterol Sulfate Sulfate Sulfate (2.5 (2.5 (2.5 MG/3ML) MG/3ML) MG/3ML) 0.083% 0.083% 0.083% ProAir HFA ProAir HFA No 1{puff_ 6xD ProAir HFA 108 (90 108 (90 as_need 108 (90 Base) Base) ed} Base) MCG/ACT MCG/ACT MCG/ACT predniSONE predniSONE No QD predniSONE 20 MG 20 MG 20 MG diazePAM 2 diazePAM 2 No 1{table QD diazePAM 2 MG MG t_as_ne MG eded} predniSONE predniSONE No 1{table QD predniSONE 10 MG 10 MG t} 10 MG ProAir HFA ProAir HFA No 6xD ProAir HFA 108 (90 108 (90 108 (90 Base) Base) Base) MCG/ACT MCG/ACT MCG/ACT Gabapentin Gabapentin No 1{table BID Gabapentin 300 MG 300 MG t} 300 MG Albuterol Albuterol No Albuterol Sulfate HFA Sulfate HFA Sulfate 108 (90 108 (90 HFA 108 Base) Base) (90 Base) MCG/ACT MCG/ACT MCG/ACT Albuterol Albuterol No Albuterol Sulfate Sulfate Sulfate (2.5 (2.5 (2.5 MG/3ML) MG/3ML) MG/3ML) 0.083% 0.083% 0.083% ProAir HFA ProAir HFA No 1{puff_ 6xD ProAir HFA 108 (90 108 (90 as_need 108 (90 Base) Base) ed} Base) MCG/ACT MCG/ACT MCG/ACT predniSONE predniSONE No QD predniSONE 20 MG 20 MG 20 MG diazePAM 2 diazePAM 2 No 1{table QD diazePAM 2 MG MG t_as_ne MG eded} predniSONE predniSONE No 1{table QD predniSONE 10 MG 10 MG t} 10 MG ProAir HFA ProAir HFA No 6xD ProAir HFA 108 (90 108 (90 108 (90 Base) Base) Base) MCG/ACT MCG/ACT MCG/ACT Gabapentin Gabapentin No 1{table BID Gabapentin 300 MG 300 MG t} 300 MG Albuterol Albuterol No Albuterol Sulfate HFA Sulfate HFA Sulfate 108 (90 108 (90 HFA 108 Base) Base) (90 Base) MCG/ACT MCG/ACT MCG/ACT Albuterol Albuterol No Albuterol Sulfate Sulfate Sulfate (2.5 (2.5 (2.5 MG/3ML) MG/3ML) MG/3ML) 0.083% 0.083% 0.083% ProAir HFA ProAir HFA No 1{puff_ 6xD ProAir HFA 108 (90 108 (90 as_need 108 (90 Base) Base) ed} Base) MCG/ACT MCG/ACT MCG/ACT predniSONE predniSONE No QD predniSONE 20 MG 20 MG 20 MG diazePAM 2 diazePAM 2 No 1{table QD diazePAM 2 MG MG t_as_ne MG eded} predniSONE predniSONE No 1{table QD predniSONE 10 MG 10 MG t} 10 MG ProAir HFA ProAir HFA No 6xD ProAir HFA 108 (90 108 (90 108 (90 Base) Base) Base) MCG/ACT MCG/ACT MCG/ACT Gabapentin Gabapentin No 1{table BID Gabapentin 300 MG 300 MG t} 300 MG Albuterol Albuterol No Albuterol Sulfate HFA Sulfate HFA Sulfate 108 (90 108 (90 HFA 108 Base) Base) (90 Base) MCG/ACT MCG/ACT MCG/ACT Albuterol Albuterol No Albuterol Sulfate Sulfate Sulfate (2.5 (2.5 (2.5 MG/3ML) MG/3ML) MG/3ML) 0.083% 0.083% 0.083% ProAir HFA ProAir HFA No 1{puff_ 6xD ProAir HFA 108 (90 108 (90 as_need 108 (90 Base) Base) ed} Base) MCG/ACT MCG/ACT MCG/ACT predniSONE predniSONE No QD predniSONE 20 MG 20 MG 20 MG diazePAM 2 diazePAM 2 No 1{table QD diazePAM 2 MG MG t_as_ne MG eded} predniSONE predniSONE No 1{table QD predniSONE 10 MG 10 MG t} 10 MG ProAir HFA ProAir HFA No 6xD ProAir HFA 108 (90 108 (90 108 (90 Base) Base) Base) MCG/ACT MCG/ACT MCG/ACT ProAir HFA ProAir HFA No 1{puff_ 6xD ProAir HFA 108 (90 108 (90 as_need 108 (90 Base) Base) ed} Base) MCG/ACT MCG/ACT MCG/ACT predniSONE predniSONE No 1{table QD predniSONE 10 MG 10 MG t} 10 MG Albuterol Albuterol No Albuterol Sulfate HFA Sulfate HFA Sulfate 108 (90 108 (90 HFA 108 Base) Base) (90 Base) MCG/ACT MCG/ACT MCG/ACT predniSONE predniSONE No QD predniSONE 20 MG 20 MG 20 MG Albuterol Albuterol No Albuterol Sulfate Sulfate Sulfate (2.5 (2.5 (2.5 MG/3ML) MG/3ML) MG/3ML) 0.083% 0.083% 0.083% diazePAM 2 diazePAM 2 No 1{table QD diazePAM 2 MG MG t_as_ne MG eded} Gabapentin Gabapentin No 1{table BID Gabapentin 300 MG 300 MG t} 300 MG Albuterol Albuterol No 3{ml_as TID Albuterol Sulfate Sulfate _needed Sulfate (2.5 (2.5 } (2.5 MG/3ML) MG/3ML) MG/3ML) 0.083% 0.083% 0.083% ProAir HFA ProAir HFA No 6xD ProAir HFA 108 (90 108 (90 108 (90 Base) Base) Base) MCG/ACT MCG/ACT MCG/ACT ProAir HFA ProAir HFA No 1{puff_ 6xD ProAir HFA 108 (90 108 (90 as_need 108 (90 Base) Base) ed} Base) MCG/ACT MCG/ACT MCG/ACT predniSONE predniSONE No 1{table QD predniSONE 10 MG 10 MG t} 10 MG Albuterol Albuterol No Albuterol Sulfate HFA Sulfate HFA Sulfate 108 (90 108 (90 HFA 108 Base) Base) (90 Base) MCG/ACT MCG/ACT MCG/ACT predniSONE predniSONE No QD predniSONE 20 MG 20 MG 20 MG Albuterol Albuterol No Albuterol Sulfate Sulfate Sulfate (2.5 (2.5 (2.5 MG/3ML) MG/3ML) MG/3ML) 0.083% 0.083% 0.083% diazePAM 2 diazePAM 2 No 1{table QD diazePAM 2 MG MG t_as_ne MG eded} Gabapentin Gabapentin No 1{table BID Gabapentin 300 MG 300 MG t} 300 MG Albuterol Albuterol No 3{ml_as TID Albuterol Sulfate Sulfate _needed Sulfate (2.5 (2.5 } (2.5 MG/3ML) MG/3ML) MG/3ML) 0.083% 0.083% 0.083% ProAir HFA ProAir HFA No 6xD ProAir HFA 108 (90 108 (90 108 (90 Base) Base) Base) MCG/ACT MCG/ACT MCG/ACT Albuterol Albuterol No Albuterol Sulfate HFA Sulfate HFA Sulfate 108 (90 108 (90 HFA 108 Base) Base) (90 Base) MCG/ACT MCG/ACT MCG/ACT Albuterol Albuterol No 3{ml_as TID Albuterol Sulfate Sulfate _needed Sulfate (2.5 (2.5 } (2.5 MG/3ML) MG/3ML) MG/3ML) 0.083% 0.083% 0.083% Albuterol Albuterol No Albuterol Sulfate Sulfate Sulfate (2.5 (2.5 (2.5 MG/3ML) MG/3ML) MG/3ML) 0.083% 0.083% 0.083% ProAir HFA ProAir HFA No 1{puff_ 6xD ProAir HFA 108 (90 108 (90 as_need 108 (90 Base) Base) ed} Base) MCG/ACT MCG/ACT MCG/ACT ProAir HFA ProAir HFA No 6xD ProAir HFA 108 (90 108 (90 108 (90 Base) Base) Base) MCG/ACT MCG/ACT MCG/ACT Gabapentin Gabapentin No 1{table BID Gabapentin 300 MG 300 MG t} 300 MG predniSONE predniSONE No QD predniSONE 20 MG 20 MG 20 MG predniSONE predniSONE No 1{table QD predniSONE 10 MG 10 MG t} 10 MG diazePAM 2 diazePAM 2 No 1{table QD diazePAM 2 MG MG t_as_ne MG eded} Albuterol Albuterol No Albuterol Sulfate HFA Sulfate HFA Sulfate 108 (90 108 (90 HFA 108 Base) Base) (90 Base) MCG/ACT MCG/ACT MCG/ACT Albuterol Albuterol No 3{ml_as TID Albuterol Sulfate Sulfate _needed Sulfate (2.5 (2.5 } (2.5 MG/3ML) MG/3ML) MG/3ML) 0.083% 0.083% 0.083% Albuterol Albuterol No Albuterol Sulfate Sulfate Sulfate (2.5 (2.5 (2.5 MG/3ML) MG/3ML) MG/3ML) 0.083% 0.083% 0.083% ProAir HFA ProAir HFA No 1{puff_ 6xD ProAir HFA 108 (90 108 (90 as_need 108 (90 Base) Base) ed} Base) MCG/ACT MCG/ACT MCG/ACT ProAir HFA ProAir HFA No 6xD ProAir HFA 108 (90 108 (90 108 (90 Base) Base) Base) MCG/ACT MCG/ACT MCG/ACT Gabapentin Gabapentin No 1{table BID Gabapentin 300 MG 300 MG t} 300 MG predniSONE predniSONE No QD predniSONE 20 MG 20 MG 20 MG predniSONE predniSONE No 1{table QD predniSONE 10 MG 10 MG t} 10 MG diazePAM 2 diazePAM 2 No 1{table QD diazePAM 2 MG MG t_as_ne MG eded} Albuterol Albuterol No Albuterol Sulfate HFA Sulfate HFA Sulfate 108 (90 108 (90 HFA 108 Base) Base) (90 Base) MCG/ACT MCG/ACT MCG/ACT Albuterol Albuterol No 3{ml_as TID Albuterol Sulfate Sulfate _needed Sulfate (2.5 (2.5 } (2.5 MG/3ML) MG/3ML) MG/3ML) 0.083% 0.083% 0.083% Albuterol Albuterol No Albuterol Sulfate Sulfate Sulfate (2.5 (2.5 (2.5 MG/3ML) MG/3ML) MG/3ML) 0.083% 0.083% 0.083% ProAir HFA ProAir HFA No 1{puff_ 6xD ProAir HFA 108 (90 108 (90 as_need 108 (90 Base) Base) ed} Base) MCG/ACT MCG/ACT MCG/ACT ProAir HFA ProAir HFA No 6xD ProAir HFA 108 (90 108 (90 108 (90 Base) Base) Base) MCG/ACT MCG/ACT MCG/ACT Gabapentin Gabapentin No 1{table BID Gabapentin 300 MG 300 MG t} 300 MG predniSONE predniSONE No QD predniSONE 20 MG 20 MG 20 MG predniSONE predniSONE No 1{table QD predniSONE 10 MG 10 MG t} 10 MG diazePAM 2 diazePAM 2 No 1{table QD diazePAM 2 MG MG t_as_ne MG eded} Albuterol Albuterol No Albuterol Sulfate HFA Sulfate HFA Sulfate 108 (90 108 (90 HFA 108 Base) Base) (90 Base) MCG/ACT MCG/ACT MCG/ACT Albuterol Albuterol No 3{ml_as TID Albuterol Sulfate Sulfate _needed Sulfate (2.5 (2.5 } (2.5 MG/3ML) MG/3ML) MG/3ML) 0.083% 0.083% 0.083% Albuterol Albuterol No Albuterol Sulfate Sulfate Sulfate (2.5 (2.5 (2.5 MG/3ML) MG/3ML) MG/3ML) 0.083% 0.083% 0.083% ProAir HFA ProAir HFA No 1{puff_ 6xD ProAir HFA 108 (90 108 (90 as_need 108 (90 Base) Base) ed} Base) MCG/ACT MCG/ACT MCG/ACT ProAir HFA ProAir HFA No 6xD ProAir HFA 108 (90 108 (90 108 (90 Base) Base) Base) MCG/ACT MCG/ACT MCG/ACT Gabapentin Gabapentin No 1{table BID Gabapentin 300 MG 300 MG t} 300 MG predniSONE predniSONE No QD predniSONE 20 MG 20 MG 20 MG predniSONE predniSONE No 1{table QD predniSONE 10 MG 10 MG t} 10 MG diazePAM 2 diazePAM 2 No 1{table QD diazePAM 2 MG MG t_as_ne MG eded} Albuterol Albuterol No Albuterol Sulfate HFA Sulfate HFA Sulfate 108 (90 108 (90 HFA 108 Base) Base) (90 Base) MCG/ACT MCG/ACT MCG/ACT Albuterol Albuterol No 3{ml_as TID Albuterol Sulfate Sulfate _needed Sulfate (2.5 (2.5 } (2.5 MG/3ML) MG/3ML) MG/3ML) 0.083% 0.083% 0.083% Albuterol Albuterol No Albuterol Sulfate Sulfate Sulfate (2.5 (2.5 (2.5 MG/3ML) MG/3ML) MG/3ML) 0.083% 0.083% 0.083% ProAir HFA ProAir HFA No 1{puff_ 6xD ProAir HFA 108 (90 108 (90 as_need 108 (90 Base) Base) ed} Base) MCG/ACT MCG/ACT MCG/ACT ProAir HFA ProAir HFA No 6xD ProAir HFA 108 (90 108 (90 108 (90 Base) Base) Base) MCG/ACT MCG/ACT MCG/ACT Gabapentin Gabapentin No 1{table BID Gabapentin 300 MG 300 MG t} 300 MG predniSONE predniSONE No QD predniSONE 20 MG 20 MG 20 MG predniSONE predniSONE No 1{table QD predniSONE 10 MG 10 MG t} 10 MG diazePAM 2 diazePAM 2 No 1{table QD diazePAM 2 MG MG t_as_ne MG eded} predniSONE predniSONE No QD predniSONE 20 MG 20 MG 20 MG Albuterol Albuterol No TID Albuterol Sulfate Sulfate Sulfate (2.5 (2.5 (2.5 MG/3ML) MG/3ML) MG/3ML) 0.083% 0.083% 0.083% predniSONE predniSONE No QD predniSONE 10 MG 10 MG 10 MG diazePAM 2 diazePAM 2 No 1{table QD diazePAM 2 MG MG t_as_ne MG eded} ProAir HFA ProAir HFA No 6xD ProAir HFA 108 (90 108 (90 108 (90 Base) Base) Base) MCG/ACT MCG/ACT MCG/ACT ProAir HFA ProAir HFA No 1{puff_ 6xD ProAir HFA 108 (90 108 (90 as_need 108 (90 Base) Base) ed} Base) MCG/ACT MCG/ACT MCG/ACT Albuterol Albuterol No Albuterol Sulfate HFA Sulfate HFA Sulfate 108 (90 108 (90 HFA 108 Base) Base) (90 Base) MCG/ACT MCG/ACT MCG/ACT Gabapentin Gabapentin No 1{table BID Gabapentin 300 MG 300 MG t} 300 MG predniSONE predniSONE No QD predniSONE 20 MG 20 MG 20 MG Albuterol Albuterol No TID Albuterol Sulfate Sulfate Sulfate (2.5 (2.5 (2.5 MG/3ML) MG/3ML) MG/3ML) 0.083% 0.083% 0.083% predniSONE predniSONE No QD predniSONE 10 MG 10 MG 10 MG diazePAM 2 diazePAM 2 No 1{table QD diazePAM 2 MG MG t_as_ne MG eded} ProAir HFA ProAir HFA No 6xD ProAir HFA 108 (90 108 (90 108 (90 Base) Base) Base) MCG/ACT MCG/ACT MCG/ACT ProAir HFA ProAir HFA No 1{puff_ 6xD ProAir HFA 108 (90 108 (90 as_need 108 (90 Base) Base) ed} Base) MCG/ACT MCG/ACT MCG/ACT Albuterol Albuterol No Albuterol Sulfate HFA Sulfate HFA Sulfate 108 (90 108 (90 HFA 108 Base) Base) (90 Base) MCG/ACT MCG/ACT MCG/ACT Gabapentin Gabapentin No 1{table BID Gabapentin 300 MG 300 MG t} 300 MG Albuterol Albuterol No Albuterol Sulfate HFA Sulfate HFA Sulfate 108 (90 108 (90 HFA 108 Base) Base) (90 Base) MCG/ACT MCG/ACT MCG/ACT Albuterol Albuterol No 3{ml_as TID Albuterol Sulfate Sulfate _needed Sulfate (2.5 (2.5 } (2.5 MG/3ML) MG/3ML) MG/3ML) 0.083% 0.083% 0.083% Albuterol Albuterol No Albuterol Sulfate Sulfate Sulfate (2.5 (2.5 (2.5 MG/3ML) MG/3ML) MG/3ML) 0.083% 0.083% 0.083% ProAir HFA ProAir HFA No 1{puff_ 6xD ProAir HFA 108 (90 108 (90 as_need 108 (90 Base) Base) ed} Base) MCG/ACT MCG/ACT MCG/ACT ProAir HFA ProAir HFA No 6xD ProAir HFA 108 (90 108 (90 108 (90 Base) Base) Base) MCG/ACT MCG/ACT MCG/ACT Gabapentin Gabapentin No 1{table BID Gabapentin 300 MG 300 MG t} 300 MG predniSONE predniSONE No QD predniSONE 20 MG 20 MG 20 MG Albuterol Albuterol Yes [place] INHALE 2 Common Sulfate HFA Sulfate HFA [place] PUFFS [facility] [address] [facility] HOU[facility] Albuterol Albuterol Yes [place] 3 ml as Common Sulfate Sulfate [place] needed [facility] predniSONE predniSONE No 1{table QD predniSONE 10 MG 10 MG t} 10 MG diazePAM 2 diazePAM 2 No 1{table QD diazePAM 2 MG MG t_as_ne MG eded} Albuterol Albuterol No Albuterol Sulfate HFA Sulfate HFA Sulfate 108 (90 108 (90 HFA 108 Base) Base) (90 Base) MCG/ACT MCG/ACT MCG/ACT Albuterol Albuterol No 3{ml_as TID Albuterol Sulfate Sulfate _needed Sulfate (2.5 (2.5 } (2.5 MG/3ML) MG/3ML) MG/3ML) 0.083% 0.083% 0.083% Albuterol Albuterol No Albuterol Sulfate Sulfate Sulfate (2.5 (2.5 (2.5 MG/3ML) MG/3ML) MG/3ML) 0.083% 0.083% 0.083% ProAir HFA ProAir HFA No 1{puff_ 6xD ProAir HFA 108 (90 108 (90 as_need 108 (90 Base) Base) ed} Base) MCG/ACT MCG/ACT MCG/ACT ProAir HFA ProAir HFA No 6xD ProAir HFA 108 (90 108 (90 108 (90 Base) Base) Base) MCG/ACT MCG/ACT MCG/ACT Gabapentin Gabapentin No 1{table BID Gabapentin 300 MG 300 MG t} 300 MG predniSONE predniSONE No QD predniSONE 20 MG 20 MG 20 MG predniSONE predniSONE No 1{table QD predniSONE 10 MG 10 MG t} 10 MG diazePAM 2 diazePAM 2 No 1{table QD diazePAM 2 MG MG t_as_ne MG eded} Albuterol Albuterol No Albuterol Sulfate HFA Sulfate HFA Sulfate 108 (90 108 (90 HFA 108 Base) Base) (90 Base) MCG/ACT MCG/ACT MCG/ACT Albuterol Albuterol No 3{ml_as TID Albuterol Sulfate Sulfate _needed Sulfate (2.5 (2.5 } (2.5 MG/3ML) MG/3ML) MG/3ML) 0.083% 0.083% 0.083% Albuterol Albuterol No Albuterol Sulfate Sulfate Sulfate (2.5 (2.5 (2.5 MG/3ML) MG/3ML) MG/3ML) 0.083% 0.083% 0.083% ProAir HFA ProAir HFA No 1{puff_ 6xD ProAir HFA 108 (90 108 (90 as_need 108 (90 Base) Base) ed} Base) MCG/ACT MCG/ACT MCG/ACT ProAir HFA ProAir HFA No 6xD ProAir HFA 108 (90 108 (90 108 (90 Base) Base) Base) MCG/ACT MCG/ACT MCG/ACT Gabapentin Gabapentin No 1{table BID Gabapentin 300 MG 300 MG t} 300 MG predniSONE predniSONE No QD predniSONE 20 MG 20 MG 20 MG predniSONE predniSONE No 1{table QD predniSONE 10 MG 10 MG t} 10 MG diazePAM 2 diazePAM 2 No 1{table QD diazePAM 2 MG MG t_as_ne MG eded} Albuterol Albuterol No Albuterol Sulfate HFA Sulfate HFA Sulfate 108 (90 108 (90 HFA 108 Base) Base) (90 Base) MCG/ACT MCG/ACT MCG/ACT predniSONE predniSONE No QD predniSONE 20 MG 20 MG 20 MG Albuterol Albuterol No 3{ml_as TID Albuterol Sulfate Sulfate _needed Sulfate (2.5 (2.5 } (2.5 MG/3ML) MG/3ML) MG/3ML) 0.083% 0.083% 0.083% diazePAM 2 diazePAM 2 No 1{table QD diazePAM 2 MG MG t_as_ne MG eded} ProAir HFA ProAir HFA No 1{puff_ 6xD ProAir HFA 108 (90 108 (90 as_need 108 (90 Base) Base) ed} Base) MCG/ACT MCG/ACT MCG/ACT Albuterol Albuterol No 3{ml_as 6xD Albuterol Sulfate Sulfate _needed Sulfate (2.5 (2.5 } (2.5 MG/3ML) MG/3ML) MG/3ML) 0.083% 0.083% 0.083% Albuterol Albuterol No Albuterol Sulfate HFA Sulfate HFA Sulfate 108 (90 108 (90 HFA 108 Base) Base) (90 Base) MCG/ACT MCG/ACT MCG/ACT predniSONE predniSONE No QD predniSONE 20 MG 20 MG 20 MG Albuterol Albuterol No 3{ml_as TID Albuterol Sulfate Sulfate _needed Sulfate (2.5 (2.5 } (2.5 MG/3ML) MG/3ML) MG/3ML) 0.083% 0.083% 0.083% diazePAM 2 diazePAM 2 No 1{table QD diazePAM 2 MG MG t_as_ne MG eded} ProAir HFA ProAir HFA No 1{puff_ 6xD ProAir HFA 108 (90 108 (90 as_need 108 (90 Base) Base) ed} Base) MCG/ACT MCG/ACT MCG/ACT Albuterol Albuterol No 3{ml_as 6xD Albuterol Sulfate Sulfate _needed Sulfate (2.5 (2.5 } (2.5 MG/3ML) MG/3ML) MG/3ML) 0.083% 0.083% 0.083% Albuterol Albuterol No Albuterol Sulfate HFA Sulfate HFA Sulfate 108 (90 108 (90 HFA 108 Base) Base) (90 Base) MCG/ACT MCG/ACT MCG/ACT Albuterol Albuterol No 3{ml_as 6xD Albuterol Sulfate Sulfate _needed Sulfate (2.5 (2.5 } (2.5 MG/3ML) MG/3ML) MG/3ML) 0.083% 0.083% 0.083% predniSONE predniSONE No QD predniSONE 20 MG 20 MG 20 MG ProAir HFA ProAir HFA No 1{puff_ 6xD ProAir HFA 108 (90 108 (90 as_need 108 (90 Base) Base) ed} Base) MCG/ACT MCG/ACT MCG/ACT diazePAM 2 diazePAM 2 No 1{table QD diazePAM 2 MG MG t_as_ne MG eded} Albuterol Albuterol No 3{ml_as TID Albuterol Sulfate Sulfate _needed Sulfate (2.5 (2.5 } (2.5 MG/3ML) MG/3ML) MG/3ML) 0.083% 0.083% 0.083% Albuterol Albuterol No Albuterol Sulfate HFA Sulfate HFA Sulfate 108 (90 108 (90 HFA 108 Base) Base) (90 Base) MCG/ACT MCG/ACT MCG/ACT Albuterol Albuterol No Albuterol Sulfate Sulfate Sulfate (2.5 (2.5 (2.5 MG/3ML) MG/3ML) MG/3ML) 0.083% 0.083% 0.083% ProAir HFA ProAir HFA No 6xD ProAir HFA 108 (90 108 (90 108 (90 Base) Base) Base) MCG/ACT MCG/ACT MCG/ACT diazePAM 2 diazePAM 2 No 1{table QD diazePAM 2 MG MG t_as_ne MG eded} predniSONE predniSONE No QD predniSONE 20 MG 20 MG 20 MG Albuterol Albuterol No Albuterol Sulfate HFA Sulfate HFA Sulfate 108 (90 108 (90 HFA 108 Base) Base) (90 Base) MCG/ACT MCG/ACT MCG/ACT Albuterol Albuterol No Albuterol Sulfate Sulfate Sulfate (2.5 (2.5 (2.5 MG/3ML) MG/3ML) MG/3ML) 0.083% 0.083% 0.083% ProAir HFA ProAir HFA No 6xD ProAir HFA 108 (90 108 (90 108 (90 Base) Base) Base) MCG/ACT MCG/ACT MCG/ACT diazePAM 2 diazePAM 2 No 1{table QD diazePAM 2 MG MG t_as_ne MG eded} predniSONE predniSONE No QD predniSONE 20 MG 20 MG 20 MG predniSONE predniSONE No 1{table QD predniSONE 10 MG 10 MG t} 10 MG diazePAM 2 diazePAM 2 No 1{table QD diazePAM 2 MG MG t_as_ne MG eded} ProAir HFA ProAir HFA No 6xD ProAir HFA 108 (90 108 (90 108 (90 Base) Base) Base) MCG/ACT MCG/ACT MCG/ACT Immunizations Ordered Filled Date Status Comments Source Immunization Name Immunization Name Adi Joshi 2020-05-15 [facility] 13:40[facility]00 [facility] 2020-05-15 Com[facility] ([facility] (Triamcinolone) 13:40:00 [facility] 2020-05-01 [facility] ([facility] (Triamcinolone) 14:53:00 [facility] 2020-05-01 [facility] (Triamcinolone) 14:53:00 [facility] 2020-04-16 Completed [facility] (Triam[facility] (Triamcinolone) 15:57:00 [facility] 2020-04-16 Completed [facility] (Triam[facility] (Triamcinolone) 15:57:00 [facility] 2020-03-28 Completed [facility] (Triam[facility] (Triamcinolone) 10:21:00 [facility] 2020-03-28 Completed [facility] (Triam[facility] (Triamcinolone) 10:21:00 [facility] 2020-03-14 Completed [facility] (Triam[facility] (Triamcinolone) 13:48:00 [facility] Kenalog 2020-03-14 Completed [facility] (Triamcin[facility]one[facility] (Triamcinolone) 13:48:00 [facility] TDAP 2012-09-04 Completed [facility]00 [facility] TDAP 2012-09-04 Completed [facility] 00:00:00 [facility] TDAP 2012-09-04 Completed [facility] 00:00:00 [facility] TDAP 2012-09-04 Completed [facility] 00:00:00 [facility] TDAP 2012-09-04 Completed [facility] 00:00:00 [facility] TDAP 2012-09-04 Completed [facility] 00:00:00 [facility] TDAP 2012-09-04 Completed [facility] 00:00:00 [facility] TDAP 2012-09-04 Completed [facility] 00:00:00 [facility] TDAP 2012-09-04 Completed [facility] 00:00:00 [facility] TDAP 2012-09-04 Completed [facility] 00:00:00 [facility] TDAP 2012-09-04 Completed [facility] 00:00:00 [facility] TDAP 2012-09-04 Completed [facility] 00:00:00 [facility] TDAP 2012-09-04 Completed [facility] 00:00:00 [facility] TDAP Unknown Completed [facility] TDAP Unknown Completed [facility] Tdap Unknown Completed [facility] Vital Signs Vital Name Observation Time Observation Value Comments Source Systolic blood 2023-03-09 11:00:00 106 mm[Hg] Univer sity of pressure [facility] Diastolic blood 2023-03-09 11:00:00 59 mm[Hg] Unive rsity of pressure [facility] Heart rate 2023-03-09 11:00:00 77 /min [facility] Body temperature 2023-03-09 11:00:00 36.89 [facility] ersity [facility] Respiratory rate 2023-03-09 11:00:00 16 /[facility] 2023-03-09 11:00:00 100 /min [facility] Arterial blood by [facility] Pulse oximetry Branch Body weight 2023-03-08 20:03:00 54.432 kg [facility] BMI 2023-03-08 20:03:00 21.26 kg/m2 [facility] height 2022-02-22 16:40:00 66 [in_i] Common [facility] weight 2022-02-22 16:40:00 230 [lb_av] [facility] bmi 2022-02-22 16:40:00 37.12 kg/m2 [facility] Heart rate 2022-01-31 23:17:00 85 /min [facility] Respiratory rate 2022-01-31 23:17:00 20 /min Univ ersity of [facility] Oxygen saturation in 2022-01-31 23:17:00 99 /min [facility] Arterial blood by [facility] Pulse oximetry Branch Systolic blood 2022-01-31 22:52:09 175 mm[Hg] Univer sity of pressure [facility] Diastolic blood 2022-01-31 22:52:09 81 mm[Hg] Unive rsity of pressure [facility] Body temperature 2022-01-31 22:52:09 37.22 [facility] ers[facility] of [facility] Body weight 2022-01-31 22:48:00 86.183 kg [facility] [place] [facility] BMI 2022-01-31 22:48:00 33.67 kg/m2 [facility] Systolic blood 2022-01-19 03:00:00 131 mm[Hg] Univer [facility]ity of [facility] Diastolic blood 2022-01-19 03:00:00 73 mm[Hg] Unive rsity of [facility] Heart rate 2022-01-19 03:00:00 76 /min [facility] Respiratory rate 2022-01-19 03:00:00 18 /min Univ ersity of [facility] Oxygen saturation in 2022-01-19 03:00:00 96 /min [facility] Arterial blood by [facility] Pulse oximetry Branch Body temperature 2022-01-18 23:15:00 37.67 [facility] ersity of [facility] Body weight 2022-01-18 23:15:00 86.183 kg [facility] BMI 2022-01-18 23:15:00 33.67 kg/m2 [facility] [place] [facility] height 2021-12-21 07:30:00 66 [in_i] [facility] weight 2021-12-21 07:30:00 235 [lb_av] [facility] temperature 2021-12-21 07:30:00 98 [degF] [facility] bmi 2021-12-21 07:30:00 37.93 kg/m2 [facility] blood pressure 2021-12-21 07:30:00 132 mm[Hg] [facility] - systolic [facility] blood pressure 2021-12-21 07:30:00 70 mm[Hg] [facility] - diastolic [facility] height 2021-10-16 10:10:00 66 [in_i] [facility] weight 2021-10-16 10:10:00 234.1 [lb_av] [facility] temperature 2021-10-16 10:10:00 96.6 [degF] [facility] bmi 2021-10-16 10:10:00 37.78 kg/m2 [facility] S pirit [facility] oximetry 2021-10-16 10:10:00 99 % [facility] S pirit [facility] respiratory rate 2021-10-16 10:10:00 18 /min [facility] blood pressure 2021-10-16 10:10:00 148 mm[Hg] [facility] - systolic [facility] blood pressure 2021-10-16 10:10:00 75 mm[Hg] [facility] - diastolic [facility] height 2021-08-21 08:40:00 66 [in_i] [facility] weight 2021-08-21 08:40:00 249 [lb_av] [facility] bmi 2021-08-21 08:40:00 40.19 kg/m2 [facility] height 2021-03-12 15:40:00 66 [in_i] [facility] weight 2021-03-12 15:40:00 249 [lb_av] [facility] bmi 2021-03-12 15:40:00 40.19 kg/m2 [facility] Systolic blood 2023-01-07 16:39:00 123 mm[Hg] Univer sity of pressure [place] [facility] on [facility] Diastolic blood 2023-01-07 16:39:00 74 mm[Hg] Unive rsity of pressure [place] MD [facility] on [facility] Heart rate 2023-01-07 16:39:00 88 /min [facility] MD [facility] on [facility] Body temperature 2023-01-07 16:39:00 36.67 [facility] Respiratory rate 2023-01-07 16:39:00 20 /min [facility] on [facility] Body weight 2023-01-07 16:39:00 58.7 kg [facility] MD [facility] on [facility] BMI 2023-01-07 16:39:00 22.93 kg/m2 [facility] MD [facility] Oxygen saturation in 2022-07-14 14:29:29 97 /min [facility] Arterial blood by Luis nicole Pulse oximetry [facility] Body height 2022-07-12 22:08:00 160 cm [facility] MD [facility] on [facility] Systolic (mm Hg) 2022-05-18 17:04:00 Keanu rukhsana [place] Diastolic (mm Hg) 2022-05-18 17:04:00 Mem orial [place] Heart Rate 2022-05-18 17:04:00 [facility] [place] Height 2022-05-18 17:04:00 5 [ft_i] [facility] Weight 2022-05-18 17:04:00 [facility] [place] BMI Calculated 2022-05-18 17:04:00 Rishi Conte Systolic (mm Hg) 2021-12-04 19:55:00 Keanu rial [place] Diastolic (mm Hg) 2021-12-04 19:55:00 Mem [facility] [place] Heart Rate 2021-12-04 19:55:00 [facility] Respitory Rate 2021-12-04 19:55:00 [facility] Height 2021-12-04 19:55:00 160.02 cm [facility] Weight 2021-12-04 19:55:00 [facility] [place] BMI Calculated 2021-12-04 19:55:00 [facility] [place] Systolic (mm Hg) 2021-11-05 19:35:00 Keanu rial [place] Diastolic (mm Hg) 2021-11-05 19:35:00 Mem [facility] [place] Heart Rate 2021-11-05 19:35:00 [facility] Respitory Rate 2021-11-05 19:35:00 [facility] [place] Height 2021-11-05 19:35:00 160.02 cm [facility] Weight 2021-11-05 19:35:00 [facility] [place] BMI Calculated 2021-11-05 19:35:00 [facility] [place] Systolic (mm Hg) 2021-02-05 15:45:00 Keanu rial [facility] Diastolic (mm Hg) 2021-02-05 15:45:00 Mem [facility] [place] Heart Rate 2021-02-05 15:45:00 [facility] Respitory Rate 2021-02-05 15:45:00 [facility] Height 2021-02-05 15:45:00 160.02 cm [facility] Weight 2021-02-05 15:45:00 [facility] BMI Calculated 2021-02-05 15:45:00 [facility] [place] Systolic (mm Hg) 2020-11-04 14:58:00 Keanu rial [facility] Diastolic (mm Hg) 2020-11-04 14:58:00 Mem [facility] Heart Rate 2020-11-04 14:58:00 [facility] [place] Respitory Rate 2020-11-04 14:58:00 [facility] Height 2020-11-04 14:58:00 162.56 cm [facility] Weight 2020-11-04 14:58:00 [facility] [place] BMI Calculated 2020-11-04 14:58:00 [facility] Systolic (mm Hg) 2020-09-03 13:30:00 Keanu rial [facility] Diastolic (mm Hg) 2020-09-03 13:30:00 Mem [facility] [place] Heart Rate 2020-09-03 13:30:00 [facility] Respitory Rate 2020-09-03 13:30:00 [facility] [place] Weight 2020-09-03 13:30:00 [facility] [place] Systolic (mm Hg) 2020-08-20 16:01:00 Keanu rial [place] Diastolic (mm Hg) 2020-08-20 16:01:00 Mem [facility] Heart Rate 2020-08-20 16:01:00 [facility] [place] Respitory Rate 2020-08-20 16:01:00 [facility] [place] Height 2020-08-20 16:01:00 162.56 cm [facility] [place] Weight 2020-08-20 16:01:00 [facility] [place] BMI Calculated 2020-08-20 16:01:00 [facility] [place] Systolic (mm Hg) 2018-11-27 16:16:00 Keanu rial [facility] Diastolic (mm Hg) 2018-11-27 16:16:00 [facility] [place] Weight 2018-11-27 16:16:00 [facility] [place] BMI Calculated 2018-11-27 16:16:00 [facility] Heart Rate 2018-11-27 16:16:00 [facility] [place] Height 2018-11-27 16:16:00 167.64 cm [facility] Procedures Procedure Date / Time Performing Clinician Source Performed HEMOGLOBIN 2023-03-09 11:12:00 Catalina Rosales [facility] TRANSFUSE PACKED RBC 2023-03-09 08:22:00 Catalina Rosales [facility] PREPARE PACKED RBC 2023-03-09 08:12:45 Catalina Rosales [facility] TRANSFUSE PACKED RBC 2023-03-09 04:23:00 Will Stratton [facility] PREPARE PACKED RBC 2023-03-09 04:18:05 Will Stratton [facility] CRITICAL CARE 2023-03-09 02:42:53 Will Stratton [facility] TRANSFUSE PACKED RBC 2023-03-09 00:49:00 Will Stratton [facility] US DUPLEX VENOUS ARM 2023-03-09 00:29:13 Will Stratton [facility] RIGHT - BY VASCULAR LAB [facility] LACTIC ACID WHOLE BLOOD 2023-03-08 23:14:00 Will Stratton [facility] ACTIVATED PARTIAL 2023-03-08 21:52:00 Will Stratton [facility] THRMPLAS [place] [facility] CBC WITH DIFF 2023-03-08 21:26:00 Will Stratton [facility] BLOOD CULTURE SCREEN 2023-03-08 20:27:00 Will Stratton [facility] TROPONIN I 2023-03-08 20:27:00 Will Stratton [place] [facility] COMP. METABOLIC PANEL 2023-03-08 20:27:00 Will Stratton [facility] ([id number]) [facility] PROTHROMBIN TIME / INR 2023-03-08 20:27:00 Will Stratton [facility] HB ABO GROUPING 2023-03-08 20:27:00 Will Stratton [facility] N-TERMINAL PRO-BNP 2023-03-08 20:27:00 Will Stratton [facility] LACTIC ACID WHOLE BLOOD 2023-03-08 20:20:00 Will Stratton [facility] AUTHORIZATION FOR RELEASE 2022-08-12 05:01:00 Doctor Zamarripa [facility] Name [facility] AUTHORIZATION FOR RELEASE 2022-08-02 06:01:00 Doctor [facility]ec [facility] Name [facility] AUTHORIZATION FOR RELEASE 2022-07-23 06:01:00 Doctor Zamarripa [facility] Name Medical [facility] PETCT SUBSEQUENT 2022-07-12 23:57:34 Felicitas Matos [facility] TREATMENT STRATEGY MD German Ng [facility] AUTHORIZATION FOR RELEASE 2022-07-12 06:01:00 Doctor Zamarripa [facility] AUTHORIZATION FOR RELEASE 2022-06-28 06:01:00 Doctor Zamarripa [facility] Name Medical Miller INSURANCE CORRESPONDENCE 2022-03-01 05:01:00 Doctor Zamarripa [facility] Name Medical [facility] CONSENT/REFUSAL FOR 2022-01-31 22:42:54 Doctor Zamarripa [facility] DIAGNOSIS AND TREATMENT [facility] URINALYSIS 2022-01-19 02:19:00 Enio Patel [facility] DUPLEX VENOUS LEG RIGHT - 2022-01-19 01:35:59 [facility] CT THORAX WO CONTRAST 2022-01-19 01:33:00 Enio Patel [facility] COMP. METABOLIC PANEL 2022-01-19 00:27:00 Enio Patel [facility] ([id number]) [facility] CBC WITH DIFF 2022-01-19 00:27:00 Enio Patel [facility] D-DIMER 2022-01-19 00:27:00 Enio Patel [facility] CONSENT/REFUSAL FOR 2022-01-18 23:05:23 Doctor Unagabriel [facility] DIAGNOSIS AND TREATMENT [facility] Hysterectomy 2017-03-30 00:00:00 [facility] Plan of Care Planned Activity Planned Date Details Comments Source Future Scheduled 2023-03-16 [facility] Test 17:07:07 malignant neoplasm of colon (procedure) [code = 418965377] Future Scheduled 2023-03-16 [facility] Test 17:07:07 malignant neoplasm of colon (procedure) [code = 791109733] Future Scheduled 2023-03-16 [facility] Test 17:07:07 malignant neoplasm of colon (procedure) [code = 712586683] Future Scheduled 2023-03-16 COVID-19 VACCINE (#1) [facility] Test 17:07:07 [code = COVID-19 VACCINE (#1)] Future Scheduled 2023-03-16 Pneumococcal Vaccine: [facility] Test 17:07:07 Pediatrics (0 to 5 Years) and At-Risk Patients (6 to 64 Years) (1 - PCV) [code = Pneumococcal Vaccine: Pediatrics (0 to 5 Years) and At-Risk Patients (6 to 64 Years) (1 - PCV)] Future Scheduled 2023-03-16 DIABETES: RETINAL EYE [facility] Test 17:07:07 EXAM [code = DIABETES: RETINAL EYE EXAM] Future Scheduled 2023-03-16 DIABETIC FOOT EXAM [facility] Test 17:07:07 [code = DIABETIC FOOT EXAM] Future Scheduled 2023-03-16 Hepatitis C screening [facility] Test 17:07:07 (procedure) [code = 166348106] Future Scheduled 2023-03-16 Screening for [facility] Test 17:07:07 malignant neoplasm of cervix (procedure) [code = 449470660] Future Scheduled 2023-03-16 BREAST CANCER [facility] Test 17:07:07 SCREENING [code = BREAST CANCER SCREENING] Future Scheduled 2023-03-16 Screening for [facility] Test 17:07:07 malignant neoplasm of colon (procedure) [code = 246227102] Future Scheduled 2023-03-16 Screening for [facility] Test 17:07:07 malignant neoplasm of colon (procedure) [code = 883034999] Future Scheduled 2023-03-16 SHINGLES VACCINES (1 Met [facility] Test 17:07:07 of 2) [code = SHINGLES VACCINES (1 of 2)] Future Scheduled 2023-03-16 INFLUENZA VACCINE [facility] Test 17:07:07 (#1) [code = INFLUENZA VACCINE (#1)] Future Scheduled 2023-03-16 RSV VACCINES > 60 YR Met [facility] Test 17:07:07 (1 - 1-dose 60+ series) [code = RSV VACCINES > 60 YR (1 - 1-dose 60+ series)] Future Scheduled 2023-03-11 COVID-19 Vaccination [facility] Test 08:56:58 (#1) [code = COVID-19 MD [facility] jess[facility] Cancer Vaccination (#1)] Center Encounters Start End Encounter Admission Attending Care Care Encounter Source Date/Time Date/Time Type Type Clinicians Facility Department ID 2023-01-21 Outpatient Regalado, [facility] [id number] Common 08:59:00 [place] 17117 [facility] 2022-11-11 Outpatient Regalado, [facility] [id number] Common 08:45:00 [place] 67594 [facility] 2022-08-24 Outpatient Regalado, [facility] [id number] Common 14:47:01 [place] 33886 [facility] 2022-07-31 Outpatient SYSTEM, MDA BECKI [id number] 08:50:07 PROVIDER Morris card 2022-06-04 Outpatient SYSTEM, [facility] BECKI [id number] 12:45:48 PROVIDER Morris card 2022-03-08 Outpatient SYSTEM, [facility] BECKI [id number] 08:09:18 PROVIDER Morris card 2022-01-15 Outpatient EL SILAS, [facility] COVID-19 [id number] 10:37:48 ATIF card 2021-10-14 Outpatient Regalado, STLMLC STLMLC [id number] Common 10:34:03 Holland [facility] 2021-08-20 Outpatient Regalado, STLMLC STLMLC [id number] Common 11:10:01 Holland [facility] 2021-06-24 Outpatient Regalado, STLMLC STLMLC [id number] Common 13:33:16 Holland [facility] 2021-06-24 Outpatient Regalado, STLMLC STLMLC [id number] Common 13:18:04 [place] 80383 [facility] 2021-06-24 Outpatient Regalado, STLMLC STLMLC [id number] Common 11:58:02 [place] 05210 [facility] 2021-06-24 Outpatient Regalado, STLMLC STLMLC [id number] Common 11:57:35 [place] 96880 [facility] 2021-06-24 Outpatient Regalado, STLMLC STLMLC [id number] Common 11:57:20 [facility] 36728 [facility] 2021-06-24 Outpatient Regalado, STLMLC STLMLC [id number] Common 11:56:08 [place] 13638 [facility] 2023-03-11 2023-03-11 Telephone Parish, 1.2.840.1 [id number] [facility] 00:00:00 00:00:00 Yamilet 27795.1.1 it y of 3.412.2.7 [place] .3.052732 .8 Luz Marina card [facility] 2023-03-08 2023-03-09 Inpatient X KIMANI [facility] SELINA [id number] Univers 15:04:00 06:52:00 RADAMES costa [facility] 2023-03-08 2023-03-09 [facility] Will Stratton [facility] 1.2.840.1 [id number] Univers 15:04:00 06:52:00 Encounter Kimani [facility] 350.1.13. 10 ity of [place] 4.2.7.2.686 [facility] [phone] [place] [id number] Branch 2023-01-07 2023-01-07 Outpatient EL SHAWNA, [facility] [id number] 11:34:05 12:38:33 FELICITAS card 2023-01-07 2023-01-07 Follow-Up Shawna, 1.2.840.1 [id number] Univers 11:30:00 12:38:33 Felicitas 07063.1.1 ity of 3.412.2.7 [place] .3.815628 MD Blood [facility] 2023-01-07 2023-01-07 Travel 1.2.840.1 1.2.884.025 [id number] Univers 00:00:00 00:00:00 73371.1.1 350.1.13.41 ity of 3.412.2.7 2.[place]7.3.698 [place] .3.433366 084.8 MD Jeremi Raza [facility] 2022-12-28 2022-12-28 Reanna Hughes, 1.2.840.1 [id number] Univers 00:00:00 00:00:00 Only Lxei Dey 89373.1.1 ity of 3.412.2.7 [place] .3.245426 MD Blood [facility] 2022-10-05 2022-10-05 Follow-Up Shawna, 1.2.840.1 [id number] Univers 09:30:00 10:00:00 Felicitas 63617.1.1 ity of 3.412.2.7 [place] .3.457709 MD .8 [facility] 2022-10-05 2022-10-05 Outpatient DAYDAY MATOS BECKI [facility] [id number] 09:20:09 09:20:09 FELICITAS Morris [facility] 2022-10-05 2022-10-05 Travel 1.2.840.1 1.2.411.337 [id number] Univers 00:00:00 00:00:00 54118.1.1 350.1.13.41 ity of 3.412.2.7 2.[place].7.3.698 [place] .3.163976 084.8 MD Blood [facility] 2022-09-06 2022-09-06 Orders Saul, 1.2.840.1 [id number] Univers 00:00:00 00:00:00 Only Lexi Dey 67000.1.1 ity of 3.412.2.7 [place] .3.742804 MD Blood [facility] 2022-08-13 2022-08-13 Orders Cuauhtemoc, 1.2.840.1 [id number] Univers 00:00:00 00:00:00 Only Ngoc 43294.1.1 ity of 3.412.2.7 [place] .3.782989 MD Blood [facility] 2022-08-13 2022-08-13 Orders Kinjal, 1.2.840.1 [id number] Univers 00:00:00 00:00:00 Only Roseline 93669.1.1 ity of 3.412.2.7 [place] .3.901768 MD Blood [facility] 2022-08-12 2022-08-12 Orders Doctor IQBAL 1.2.840.114 [id number] Univers 00:00:00 00:00:00 Only Unassigned, JUAN C 350.1.13.10 ity of [facility] 4.2.7.2.686 Sid as [phone] [facility] 009 Branch 2022-08-02 2022-08-02 Orders Doctor IQBAL 1.2.840.114 [id number] Univers 00:00:00 00:00:00 Only Unassigned, JUAN C 350.1.13.10 ity of [facility] 4.2.7.2.686 Sid as [id number] [address] 2022-07-23 2022-07-23 Orders Doctor IQBAL 1.2.840.114 [id number] Univers 00:00:00 00:00:00 Only Unassigned, JUAN C 350.1.13.10 ity of [facility] 4.2.7.2.686 Sid as 717.2433157 [address] 2022-07-14 2022-07-14 [facility] MDA [id number] [place] 07:43:38 23:59:00 FELICITAS card 2022-07-14 2022-07-14 [facility], 1.2.840.1 [id number] [facility] 07:43:38 23:59:00 Encounter Felicitas 49747.1.1 it y of 3.412.2.7 [place] .3.488482 .8 [facility] 2022-07-14 2022-07-14 Travel 1.2.840.1 1.2.529.818 [id number] [id number] Univers 00:00:00 00:00:00 85705.1.1 350.1.13.41 ity of 3.412.2.7 2.[place].7.3.698 [place] .3.186733 084.8 .[facility] 2022-07-12 2022-07-12 [facility] 1.2.840.1 [id number] [facility] 16:30:00 19:00:00 Procedure Felicitas 23227.1.1 it y of 3.412.2.7 [place] .3.924334 MD Blood [facility] 2022-07-12 2022-07-12 [facility] [id number] 15:36:28 15:36:28 FELICITAS card 2022-07-12 2022-07-12 Orders Doctor IQBAL 1.2.840.114 [id number] [facility] 00:00:00 00:00:00 Only Unassigned, JUAN C 350.1.13.10 ity of [facility] 4.2.7.2.686 Sid as 717.3619282 [place] [address] [place] 2022-07-12 2022-07-12 Travel 1.2.840.1 1.2.398.446 5694 [id number] Univers 00:00:00 00:00:00 74921.1.1 350.1.13.41 ity of 3.412.2.7 2.[place].7.3.698 [place] .3.108099 084.8 .8 [facility] 2022-07-09 2022-07-09 Telephone Saul, 1.2.840.1 [id number] [id number] Univers 00:00:00 00:00:00 Sarah 94205.1.1 ity of 3.412.2.7 [place] .3.073870 .8 [facility] 2022-07-08 2022-07-08 Telephone Kevin [facility] 1.2.165.746 [id number] Univers 00:00:00 00:00:00 Elzbieta HARPER 350.1.13.10 i ty of [place].2.7.2.686 [place] PROF[place] 543.3552611 Nc dical NAL 085 [address] [facility] 2022-06-28 2022-06-28 Orders Doctor IQBAL 1.2.840.114 [id number] Univers 00:00:00 00:00:00 Only Unassigned, JUAN C 350.1.13.10 ity of [facility] 4.2.7.2.686 Sid as 263.9584950 [place] [address] Branch 2022-06-25 2022-06-25 (TEL) [facility] [id number] Co mmon 00:00:00 00:00:00 [facility] 2022-06-22 2022-06-22 Orders Shawna 1.2.840.1 [id number] Univers 00:00:00 00:00:00 Only Felicitas 02182.1.1 ity of 3.412.2.7 [place] .3.190166 .8 [facility] 2022-06-20 2022-06-20 (WEB) STLMLC STLMLC [id number] Co mmon 00:00:00 00:00:00 [facility] 2022-05-18 2022-05-19 Outpatient MHIE MNA [id number] Memoria 17:00:00 05:59:59 Neurology 11 betsey Valdez [place] 2022-05-18 2022-05-19 Outpatient MHIE MNA [id number] Memoria 17:00:00 05:59:59 Neurology 11 betsey Valdez [place] 2022-05-18 2022-05-18 [facility] [id number] 11:00:00 23:59:59 Herbert Alize Angeles 2022-05-18 2022-05-18 Outpatient MHIE MHIE [id number] Memoria 11:00:00 11:00:00 Alize leggett [place] 2022-05-17 2022-05-17 (WEB) STLC STLMLC [id number] Co mmon 00:00:00 00:00:00 [facility] 2022-05-17 2022-05-17 (WEB) STLMLC STLMLC [id number] Co mmon 00:00:00 00:00:00 [facility] 2022-05-03 2022-05-03 Documentat Stone, 1.2.840.1 [id number] Univers 00:00:00 00:00:00 ion Catalina 52752.1.1 ity of [place] 3.412.2.7 [place] .3.911562 .8 [facility] 2022-04-21 2022-04-21 Documentat Kiran 1.2.840.1 [id number] Univers 00:00:00 00:00:00 ion Sheree Ng 29246.1.1 it y of 3.412.2.7 [place] .3.115195 .8 [facility] 2022-04-16 2022-04-16 Documentat Kiran 1.2.840.1 [id number] Univers 00:00:00 00:00:00 ion Sheree C 51059.1.1 it y of 3.412.2.7 [place] .3.838053 MD Traylor8 [facility] 2022-04-16 2022-04-16 Reanna Hughes, 1.2.840.1 [id number] 3036 Univers 00:00:00 00:00:00 Only Lexi Dey 85746.1.1 ity of 3.412.2.7 [place] .3.443714 MD Traylor8 [facility] 2022-04-14 2022-04-14 Outpatient [facility] MDA [id number] 11:00:00 23:59:00 Jose BENTLEY 2022-04-14 2022-04-14 [facility] Bethany Bentley 1.2.840 .1 [id number] [facility] 11:00:00 23:59:00 Encounter Toby العراقي 20343.1.1 ity of 3.412.2.7 [place] .3.056582 .8 [facility] 2022-04-14 2022-04-14 Outpatient SHAWNA [facility] MDA [id number] 10:04:47 10:59:00 FELICITAS card 2022-04-14 2022-04-14 [facility] Felicitas Matos 1.2.840.1 [id number] [facility] 10:04:47 10:59:00 Josef Pichardo 05455.1.1 ity of 3.412.2.7 [place] .3.557714 .8 [facility] 2022-04-14 2022-04-14 Adam Abbott 1.2.840.1 [id number] Univers 00:00:00 00:00:00 Yamilet Mendoza 84275.1.1 ity of 3.412.2.7 [place] .3.498917 .8 [facility] 2022-04-14 2022-04-14 Reanna Hughes 1.2.840.1 [id number] Univers 00:00:00 00:00:00 Only Lexi M 42731.1.1 ity of 3.412.2.7 [place] .3.298103 MD Blood [facility] 2022-04-14 2022-04-14 Travel 1.2.840.1 1.2.925.282 1783 [id number] Univers 00:00:00 00:00:00 38250.1.1 350.1.13.41 ity of 3.412.2.7 2.[place].7.3.698 [place] .3.328462 084.8 MD Blood [facility] 2022-04-13 2022-04-13 Orders Saul, 1.2.840.1 [id number] Univers 00:00:00 00:00:00 Only Lexi M 21220.1.1 ity of 3.412.2.7 [place] .3.282117 MD Traylor8 [facility] 2022-04-13 2022-04-13 Orders Saul, 1.2.840.1 [id number] Univers 00:00:00 00:00:00 Only Lexi M 09570.1.1 ity of 3.412.2.7 [place] .3.316697 MD Blood [facility] 2022-04-13 2022-04-13 Reanna Hughes 1.2.840.1 [id number] 7634 Univers 00:00:00 00:00:00 Only Lexi M 07738.1.1 ity of 3.412.2.7 [place] .3.097152 MD Traylor8 [facility] 2022-04-12 2022-04-12 Telephone Nasrin, 1.2.840.1 [id number] [id number] Univers 00:00:00 00:00:00 Lashawn N 96228.1.1 ity of 3.412.2.7 [place] .3.171724 MD Traylor8 [facility] 2022-04-12 2022-04-12 Orders Nasrin 1.2.840.1 [id number] Univers 00:00:00 00:00:00 Only Lashawn N 20996.1.1 ity of 3.412.2.7 [place] .3.621290 MD Traylor8 [facility] 2022-04-08 2022-04-08 Orders Alexandra, 1.2.840.1 [id number] 7528 Univers 00:00:00 00:00:00 Only Lashawn N 25831.1.1 ity of 3.412.2.7 [place] .3.297296 MD Traylor8 [facility] 2022-04-07 2022-04-07 Orders Alexandra, 1.2.840.1 [id number] Univers 00:00:00 00:00:00 Only Lashawn N 72583.1.1 ity of 3.412.2.7 [place] .3.126673 MD Blood [facility] 2022-04-06 2022-04-06 Refrj Mireles, 1.2.840.1 [id number] 1099 [id number] Univers 00:00:00 00:00:00 Arely Ng 73504.1.1 ity of 3.412.2.7 [place] .3.559621 MD Blood [facility] 2022-04-06 2022-04-06 Orders Kyler, 1.2.840.1 [id number] 0885 Univers 00:00:00 00:00:00 Only Dwight 80268.1.1 ity of 3.412.2.7 [place] .3.936467 MD Blood [facility] 2022-04-06 2022-04-06 Orders Shawna, 1.2.840.1 [id number] [id number] Univers 00:00:00 00:00:00 Only Felicitas 69754.1.1 ity of 3.412.2.7 [place] .3.041236 MD Blood [facility] 2022-03-02 2022-03-02 Outpatient DAYDAY MATOS [facility] [id number] 10:28:00 10:28:00 FELICITAS card 2022-03-01 2022-03-01 Orders Doctor FARIDA 1.2.840.114 [id number] Univers 00:00:00 00:00:00 Only Unassigned, JUAN C 350.1.13.10 ity of [place] [facility] 4.2.7.2.686 Sid as [id number] [facility] 009 [place] 2022-02-26 2022-02-26 (TEL) STLMLC STLMLC [id number] Co mmon 00:00:00 00:00:00 [facility] 2022-02-22 2022-02-22 OFFICE STLMLC STLMLC [id number] Co mmon 00:00:00 00:00:00 VISIT EST Spir it PT LEVEL 3 [facility] 2022-02-21 2022-02-21 (WEB) STLMLC STLMLC [id number] Co mmon 00:00:00 00:00:00 [facility] 2022-02-16 2022-02-16 Outpatient DAYDAY GARCIA MDA MDA [id number] 11:41:03 11:41:13 ELISE card 2022-01-31 2022-01-31 Emergency X [facility] ERT [id number] Univers 17:50:00 18:35:00 CATALINA tello [facility] 2022-01-31 2022-01-31 Emergency [facility] 1.2.840.114 [id number] Univers 17:50:00 18:35:00 Catalina HARPER 350.1.13.10 ity [facility] 4.2.7.2.686 [facility] [id number] [facility] 084 [address] 2022-01-31 2022-01-31 Orders Doctor IQBAL 1.2.840.114 [id number] Univers 00:00:00 00:00:00 Only Unassigned, JUAN C 350.1.13.10 ity of [facility] 4.2.7.2.686 Sid as 968.1449808 [facility] 009 [place] 2022-01-29 2022-01-29 Outpatient DAYDAY GARCIA MDA MDA [id number] 12:20:20 14:16:18 ELISE card 2022-01-28 2022-01-28 Outpatient DAYDAY GARCIA, MDA MDA [id number] 13:37:48 13:37:57 ELISE card 2022-01-20 2022-01-26 Inpatient ER SIMBAQUEBA MDA [facility] [id number] 10:08:00 16:33:00 Jose BENTLEY BETHANY n 2022-01-26 2022-01-26 Inpatient EL SIMBAALLYSON MDA MDA [id number] 05:42:49 06:01:11 Jose BENTLEY BETHANY n 2022-01-25 2022-01-25 Inpatient DAYDAY GARCIA, MDA MDA [id number] 12:12:23 12:12:26 ELISE card 2022-01-24 2022-01-24 Inpatient EL YENIFEREDER, ED MDA MDA [id number] 15:30:48 15:35:17 Morris card 2022-01-22 2022-01-22 Inpatient EL EDER, ED MDA MDA [id number] 12:18:44 13:10:17 Morris card 2022-01-22 2022-01-22 Inpatient EL SHAHEEN, MDA MDA [id number] 12:18:49 13:10:13 PATRICIO card 2022-01-20 2022-01-20 Ambulatory nullFlavo MNA [id number] Memoria 15:15:00 15:15:00 Pre-Reg r Neurology 10 l Niobrara [place] 2022-01-20 2022-01-20 Ambulatory nullFlavo MNA [id number] Memoria 15:15:00 15:15:00 Pre-Reg r Neurology 10 l Niobrara [place] 2022-01-20 2022-01-20 Outpatient CAM LEVY [id number] Memoria 10:15:00 10:15:00 10 l [place] 2022-01-20 2022-01-20 Outpatient [facility] [id number] 10:15:00 10:15:00 Herbert Angeles 2022-01-19 2022-01-19 Outpatient DAYDAY ROSEN, MDA MDA [id number] 13:20:47 15:41:28 ATIF card 2022-01-19 2022-01-19 Outpatient DAYDAY GARCIA MDA [facility] [id number] 07:21:27 07:21:27 ELISE card 2022-01-18 2022-01-18 Emergency X SOLEDAD, [facility] ERT [id number] Univers 18:17:00 22:21:00 MARLON itsom of [facility] 2022-01-18 2022-01-18 Emergency Jorge Enio [facility] 1.2.840 .114 [id number] Univers 18:17:00 22:21:00 Marlon Rowe 350.1.13. 10 it[place] of [place]2.[place] [id number] [facility] 0[address] 2022-01-16 2022-01-16 Emergency X Nicole HANLEY [facility] ERT [id number] Univers 18:28:00 20:29:00 ity of [facility] 2022-01-16 2022-01-16 Emergency Jovita [facility] 1.2.840.114 [id number] Univers 18:28:00 20:29:00 Mary HARPER 350.1.13.10 i ty of [place]2.[place] [id number] [facility] [address] 2022-01-16 2022-01-16 Emergency X Nicole HANLEY [facility] ERT [id number] Univers 18:28:00 20:29:00 ity of [facility] 2022-01-16 2022-01-16 Orders Doctor FARIDA 1.2.840.114 [id number] Univers 00:00:00 00:00:00 Only Unassigned, JUAN C 350.1.13.10 ity of [facility] 4.2.7.2.686 Sid as [id number] [facility] [address] 2022-01-14 2022-01-14 [facility]phone [facility] 1.2.840.114 [id number] Univers 00:00:00 00:00:00 Bety A PRIMARY 350.1.13.10 [place] 800.5545630 Nc dical [address] 2022-01-14 2022-01-14 Telephone [facility] 1.2.840.114 [id number] Univers 00:00:00 00:00:00 Bety A PRIMARY 350.1.13.10 it[place] of [place]7.2.[place] 859.9589947 Nc dical [address] 2022-01-13 2022-01-13 Outpatient DAYDAY EMILIANO, MDA MDA [id number] 15:12:21 16:13:07 GWENDOLYN card 2022-01-13 2022-01-13 Outpatient DAYDAY CARL, MDA MDA [id number] 16:05:39 16:09:44 STEPHANIE card 2022-01-13 2022-01-13 Outpatient DAYDAY GARCIA, MDA MDA [id number] 12:56:12 15:12:43 ELISE card 2022-01-13 2022-01-13 Outpatient [facility] MDA [id number] 12:12:57 12:51:56 Morris card 2022-01-13 2022-01-13 Telephone SANDY Almonte 1.2.840.114 [id number] Univers 00:00:00 00:00:00 [facility] 350.1.13.10 ity of [place] [facility] [place].2.[place] [phone] [facility] [address] 2022-01-11 2022-01-11 Telephone Gage [facility] 1.2.831.601 [id number] Univers 00:00:00 00:00:00 [facility] MULTISPEC 350.1.13.10 [place] [id number] [facility] AND [place] [address] [facility] 2022-01-07 2022-01-07 Transition JOHN Carroll 1.2.840.114 [id number] Univers 00:00:00 00:00:00 of Care Sariah ZEPEDA 350.1.13.10 [place] [phone] [facility] [address] 2022-01-07 2022-01-07 Transition JOHN Carroll 1.2.840.114 [id number] Univers 00:00:00 00:00:00 of Care Sariah ZEPEDA 350.1.13.10 [place] [id number] [facility] [address] 2022-01-07 2022-01-07 Patient Doctor [facility] 1.2.840.114 [id number] Univers 00:00:00 00:00:00 Secure Msg Unassigned, MULTISPEC 350.1.13.10 ity [place] [id number] [facility] AND [place] [address] [facility] 2021-12-29 2022-01-06 [facility] Will [place] 1.2.840.1 [id number] Univers 06:16:00 12:34:00 Encounter Nell Almonte 350.1 .13.10 ity of [facility] 4.2.7.2.686 [place] B[place] Ceja [id number] [place] [id number] 2021-12-29 2022-01-06 [facility] [id number] Univers 06:16:00 12:34:00 BETY ity of [facility] 2022-01-03 2022-01-03 Refill Michael Danielle [facility] 1.2.840.114 [id number] Univers 00:00:00 00:00:00 PRIMARY 350.1.13.10 [place] [id number] [place] [address] 2021-12-30 2021-12-30 Outpatient EL MDA MDA [id number] 02:28:57 02:28:57 Morris o n 2021-12-30 2021-12-30 Outpatient EL MDA MDA [id number] 02:28:54 02:28:54 Morris o stephie 2021-12-30 2021-12-30 Outpatient EL MDA MDA [id number] 02:28:51 02:28:51 Morris o n 2021-12-30 2021-12-30 Outpatient EL MDA MDA [id number] MD 02:28:48 02:28:48 Morris o n 2021-12-30 2021-12-30 Outpatient EL MDA MDA [id number] MD 02:28:45 02:28:45 Morris o n 2021-12-29 2021-12-29 (TEL) [facility] [id number] [place] m[place] 00:00:00 00:00:00 [facility] 2021-12-25 2021-12-25 Outpatient R ELZBIETA GAONA [facility] 10 [id number] Univers 10:30:00 11:48:01 ELZBIETA GAONA i ty of [facility] 2021-12-25 2021-12-25 Office Kevin [facility] 1.2.840.114 [id number] Univers 10:30:00 11:48:01 Visit Elzbieta HARPER 350.1.13.10 i ty of [place] [phone] Nc dical NAL [address] [place] [address] 2021-12-24 2021-12-24 Orders Doctor FARIDA 1.2.840.114 [id number] Univers 00:00:00 00:00:00 Only Unassigned, JUAN C 350.1.13.10 ity of [place] [facility] 4.2.7.2.686 Sid as [phone] [facility] [address] 2021-12-23 2021-12-23 Multidisci ARON Regalado 1.2.840.114 [id number] Univers 00:00:00 00:00:00 plinary Nekita H 350.1.13.10 it y of [facility] 4.2.7.2.686 [place] [phone] [facility] [address] 2021-12-22 2021-12-22 Telephone Kevin [facility] 1.2.246.207 2203 [id number] Univers 00:00:00 00:00:00 Elzbieta HARPER 350.1.13.10 i ty [place] [phone] Nc dical NAL [address] [place] [address] 2021-12-21 2021-12-[address] [facility] [id number] Co mmon 00:00:00 00:00:00 VISIT EST Spir it PT LEVEL 3 - [facility] 2021-12-21 2021-12-21 FARIDA Garrison 1.2.840.114 [id number] Univers 00:00:00 00:00:00 Management Suly JUAN C 350.1.13.10 ity of [facility] 4.2.7.2.686 Sid as [phone] [facility] [address] 2021-12-21 2021-12-21 Telephone ITZEL Gaona 1.2.451.230 [id number] 0307 Univers 00:00:00 00:00:00 Shijuly HARPER 350.1.13.10 i ty of [place] [phone] Nc dic[address] 2021-12-17 2021-12-17 (TEL) [facility] [id number] Co mmon 00:00:00 00:00:00 [facility] 2021-12-16 2021-12-16 FARIDA Garrison 1.2.840.114 [id number] Univers 00:00:00 00:00:00 Management Suly JUAN C 350.1.13.10 ity of HOSPITAL 4.2.7.2.686 Sid as [phone] [facility] [address] 2021-12-15 2021-12-15 Transition JOHN Carroll 1.2.840.114 [id number] Univers 00:00:00 00:00:00 of Care Sariah ZEPEDA 350.1.13.10 [place] of [place] [phone] [facility] [address] 2021-12-15 2021-12-15 FARIDA Garrison 1.2.840.114 [id number] Univers 00:00:00 00:00:00 Management Suly JUAN C 350.1.13.10 ity of [facility] 4.2.7.2.686 Sid as [phone] [facility] [address] 2021-12-15 2021-12-15 Telephone IVELISSE GaonaIT 1.2.840.114 [id number] Univers 00:00:00 00:00:00 Shiwastephie [facility] 350.1.13.10 i ty of [facility] 4.2.7.2.[place] [phone] [facility] 084 [address] 2021-12-08 2021-12-14 Inpatient U DASH [facility] [id number] Univers 09:01:00 20:21:00 TONY ity [facility] 2021-12-08 2021-12-14 [facility] WheelerLauren 1.2.840.11 [id number] Univers 09:01:00 20:21:00 Encounter Fox Breen 350.1.13. 10 ity [facility] 4.2.7.2.686 [place] [phone] [facility] 086 [address] 2021-12-14 2021-12-14 Surgery MICHELLE Gaona 1.2.840.114 [id number] Univers 11:50:00 13:54:00 Elzbieta GROVERY 350.1.13.10 it y of [facility] 4.2.7.2.686 Sid as [phone] [facility] 103 [address] 2021-12-09 2021-12-09 Anesthesia Nohrn, 1.2.840.6 [id number] Univers 16:47:07 16:47:07 Event Madyson 66685.1.1 ity of 3.104.2.7 [place] .3.185544 Medica l .8 Branch 2021-12-08 2021-12-08 (WEB) STLC STLMLC [id number] Co mmon 00:00:00 00:00:00 [facility] 2021-12-08 2021-12-08 Travel 1.2.840.1 1.2.796.907 [id number] Univers 00:00:00 00:00:00 78585.1.1 350.1.13.10 ity of 3.104.2.7 [place].3.698 [place] .3.290113 084.8 Medica l .8 Miller 2021-12-04 2021-12-05 Outpatient nullFlavo MNA [id number] Memoria 19:45:00 04:59:59 r Neurology 09 l Courtney Gonzalez 2021-12-04 2021-12-05 Outpatient nullFlavo MNA [id number] Memoria 19:45:00 04:59:59 r Neurology 09 l Courtney Gonzalez 2021-12-04 2021-12-04 Outpatient MANUEL Larson [id number] 14:45:00 23:59:59 Herbert 09 Karthik 2021-12-04 2021-12-04 Outpatient MHIE MHIE [id number] Memoria 14:45:00 14:45:00 09 l Carlos 2021-11-30 2021-11-30 (WEB) STLMLC STLMLC [id number] Co mmon 00:00:00 00:00:00 [facility] 2021-11-29 2021-11-29 Emergency X RIDDLE, [facility] ERT [id number] Univers 16:59:00 19:13:00 CHRISTOPHER it y of [facility] 2021-11-29 2021-11-29 Emergency Barnhart, 1.2.840.2 [id number] Univers 16:59:00 19:13:00 Minaer 54165.1.1 ity of 3.104.2.7 [place] .3.666267 Medica l .8 Miller 2021-11-29 2021-11-29 Travel 1.2.840.1 1.2.135.199 [id number] [id number] Univers 00:00:00 00:00:00 81365.1.1 350.1.13.10 ity of 3.104.2.7 4.[place].3.698 [place] .3.578255 084.8 Medica l .8 Miller 2021-11-28 2021-11-28 Nurse Britton Hancock 1.2.840.2 [id number] Univers 15:30:00 15:50:00 [facility] 02715.1.1 ity of 3.104.2.7 [place] .3.247311 Medica l .8 Miller 2021-11-28 2021-11-28 Urgent [place], 1.2.840.3 [id number] Univers 15:20:00 15:40:00 Care Britton 86143.1.1 ity of 3.104.2.7 [place] .3.266201 Medica l .8 [place] 2021-11-28 2021-11-28 Outpatient R [facility] [id number] Univers 15:30:00 15:30:00 BRITTON ity of [facility] 2021-11-28 2021-11-28 Outpatient R [facility] [id number] Univers 15:20:00 15:20:00 BRITTON ity of [facility] 2021-11-28 2021-11-28 Orders Doctor 1.2.840.8 [id number] Univers 00:00:00 00:00:00 Only Unassigned, 06978.1.1 ity of [place] 3.104.2.7 [place] .3.201525 Medica l .8 [place] 2021-11-28 2021-11-28 Travel 1.2.840.1 1.2.522.326 [id number] Univers 00:00:00 00:00:00 00701.1.1 350.1.13.10 ity of 3.104.2.7 4.[place].7.3.698 [place] .3.088806 084.8 Medica l .8 [place] 2021-11-26 2021-11-26 (WEB) [id number] Co mmon 00:00:00 00:00:00 [facility] 2021-11-21 2021-11-22 Outpt Diag nullFlavo [facility] [id number] Memoria 15:32:00 04:59:00 Services r Outpatient 00 l Imaging [facility] 2021-11-21 2021-11-22 Outpt Diag nullFlavo [facility] [id number] Memoria 15:32:00 04:59:00 Services r Outpatient 00 l Imaging [facility] 2021-11-21 2021-11-21 Outpatient [facility] [id number] 10:32:00 23:59:00 Herbert Ken Angeles 2021-11-15 2021-11-15 Emergency X ITZEL SCHULZ ERT [id number] Univers 06:29:00 08:25:00 ALCIDES ity of [facility] 2021-11-15 2021-11-15 Emergency Alcides Schulz S 1.2.840.1 [id number] Univers 06:29:00 08:25:00 Catalina Roasles 15392.1.1 ity of 3.104.2.7 [place] .3.013900 Medica l .8 [place] 2021-11-15 2021-11-15 Travel 1.2.840.1 1.2.840.178 [id number] Univers 00:00:00 00:00:00 06054.1.1 350.1.13.10 ity of 3.104.2.7 4[place].3.698 [place] .3.244558 084.8 Medica l .8 [place] 2021-11-06 2021-11-06 Ambulatory nullFlavo MNA [id number] [id number] Memoria 18:30:00 18:30:00 Pre-Reg r Neurology 07 l Niobrara Carlos 2021-11-06 2021-11-06 Ambulatory nullFlavo MNA [id number] Memoria 18:30:00 18:30:00 Pre-Reg r Neurology 07 l Courtney Gonzalez 2021-11-06 2021-11-06 Outpatient DHIRAJ LEVY [id number] Memoria 13:30:00 13:30:00 Emma leggett Carlos 2021-11-06 2021-11-06 [id number] 13:30:00 13:30:00 Herbertpancho Angeles 2021-11-05 2021-11-06 Outpatient nullFlavo MNA [id number] Memoria 19:30:00 04:59:59 r Neurology 08 l Courtney Gonzalez 2021-11-05 2021-11-06 Outpatient nullFlavo MNA [id number] Memoria 19:30:00 04:59:59 r Neurology 08 betsey Gonzalez 2021-11-05 2021-11-05 Outpatient ISABELL LarsonSCHER MHMISCHER [id number] 14:30:00 23:59:59 Herbert Coleen Angeles 2021-11-05 2021-11-05 Outpatient MHIE MHIE [id number] Memoria 14:30:00 14:30:00 08 betsey Gonzalez 2021-11-04 2021-11-04 (WEB) STLMLC STLMLC [id number] Co mmon 00:00:00 00:00:00 [facility] 2021-11-02 2021-11-03 Inpatient MELY, [facility] [id number] Garden 00:00:00 00:00:00 EDUARD 942 Method i 2021-10-30 2021-10-30 Outpatient SANDIELara, [facility] [id number] Garden 00:00:00 00:00:00 KEVIN 147 Method i 2021-10-30 2021-10-30 Outpatient JOHN, [facility] [id number] Garden 00:00:00 00:00:00 RACHELL 095 Method i 2021-10-29 2021-10-29 (WEB) STLMLC STLMLC [id number] Co mmon 00:00:00 00:00:00 [facility] 2021-10-29 2021-10-29 (WEB) STLMLC STLMLC [id number] Co mmon 00:00:00 00:00:00 [facility] 2021-10-22 2021-10-22 (WEB) STLMLC STLMLC [id number] Co mmon 00:00:00 00:00:00 [facility] 2021-10-21 2021-10-21 Outpatient JINNY, [facility] [id number] Garden 00:00:00 00:00:00 KEVIN 935 Method i 2021-10-17 2021-10-17 (WEB) STLMLC STLMLC [id number] Co mmon 00:00:00 00:00:00 [facility] 2021-10-16 2021-10-16 OFFICE STLMLC STLMLC [id number] Co mmon 00:00:00 00:00:00 VISIT EST Spir it PT LEVEL 3 [facility] 2021-10-16 2021-10-16 (WEB) STLMLC STLMLC [id number] Co mmon 00:00:00 00:00:00 [facility] 2021-08-27 2021-08-27 Outpatient R MICHAEL [facility] [id number] Univers 14:23:42 23:59:00 RANIA ity of [facility] 2021-08-27 2021-08-27 [facility] 1.2.822.353 [id number] Univers 14:23:42 23:59:00 Encounter [facility] 350.1.13.10 ity of [place] 4.2.7.2.686 Sid as NELY?BLEA [phone] [facility] [address] MEDICAL OFFICE BUILDING 2021-08-27 2021-08-27 Urgent [facility] 1.2.840.114 [id number] Univers 14:20:00 14:49:15 Care Unknown, [facility] 350.1.13.10 ity [facility] 4.2.7.2.686 Sid as NELY?BLEA [phone] [facility] [address] MEDICAL OFFICE BUILDING 2021-08-27 2021-08-27 (TEL) STLMLC STLMLC [id number] Co mmon 00:00:00 00:00:00 [facility] 2021-08-21 2021-08-21 OFFICE STLMLC STLMLC [id number] Co mmon 00:00:00 00:00:00 VISIT EST Spir it PT LEVEL 3 [facility] 2021-08-20 2021-08-20 (TEL) STLMLC STLMLC [id number] Co mmon 00:00:00 00:00:00 [facility] 2021-07-13 2021-07-13 (WEB) STLMLC STLMLC [id number] Co mmon 00:00:00 00:00:00 [facility] 2021-06-25 2021-06-25 Ambulatory nullFlavo MNA [id number] Memoria 15:30:00 15:30:00 Pre-Reg r Neurology 06 l Courtney Gonzalez 2021-06-25 2021-06-25 Ambulatory nullFlavo MNA [id number] Memoria 15:30:00 15:30:00 Pre-Reg r Neurology 06 betsey Gonzalez 2021-06-25 2021-06-25 Outpatient MHIE CAM [id number] Memoria 09:30:00 09:30:00 06 betsey Gonzalez 2021-06-25 2021-06-25 Outpatient MANUEL LarsonSCHMARIANNE [id number] 09:30:00 09:30:00 Herbert Patricia Angeles 2021-04-29 2021-04-29 (WEB) STLMLC STLMLC [id number] Co mmon 00:00:00 00:00:00 [facility] 2021-03-12 2021-03-12 (WEB) STLMLC STLMLC [id number] Co mmon 00:00:00 00:00:00 [facility] 2021-03-12 2021-03-12 OFFICE STLMLC STLMLC [id number] Co mmon 00:00:00 00:00:00 VISIT EST Spir it PT LEVEL 3 [facility] 2021-02-05 2021-02-06 Outpatient nullFlavo MNA [id number] Memoria 15:30:00 04:59:59 r Neurology 05 betsey Gonzalez 2021-02-05 2021-02-06 Outpatient nullFlavo MNA [id number] Memoria 15:30:00 04:59:59 r Neurology 05 betsey Gonzalez 2021-02-05 2021-02-05 Outpatient MANUEL LarsonSCHER [id number] 10:30:00 23:59:59 Herbert Jan Angeles 2021-02-05 2021-02-05 Outpatient MHIE MHIE [id number] Memoria 10:30:00 10:30:00 05 betsey Gonzalez 2020-12-30 2020-12-30 Outpatient STLMLC STLMLC [id number] Common 00:00:00 00:00:00 [facility] 2020-12-29 2020-12-29 Outpatient STLMLC STLMLC [id number] Common 00:00:00 00:00:00 [facility] 2020-12-10 2020-12-10 Outpatient R BRENNEN MADERA [facility] [id number] Univers 15:30:00 15:30:00 BRENNEN MADERA itsom [facility] 2020-11-13 2020-11-13 Outpatient R FREDRICK [facility] [id number] Univers 10:00:00 10:00:00 AMY costa [facility] 2020-11-11 2020-11-11 Outpatient STLMLC STLMLC [id number] Common 00:00:00 00:00:00 [facility] 2020-11-04 2020-11-05 Outpatient nullFlavo MNA [id number] Memoria 14:45:00 04:59:59 r Neurology 04 l Courtney Gonzalez 2020-11-04 2020-11-05 Outpatient nullFlavo MNA [id number] Memoria 14:45:00 04:59:59 r Neurology 04 l Courtney Gonzalez 2020-11-04 2020-11-04 Outpatient MANUEL LarsonSCHER [id number] 09:45:00 23:59:59 Herbert Jennifer Angeles 2020-11-04 2020-11-04 Outpatient VERONICAIE CAM [id number] Memoria 09:45:00 09:45:00 04 betsey Gonzalez 2020-10-31 2020-10-31 [facility] Fredrick, [facility] 1.2.840.114 [id number] Univers 12:14:44 23:59:00 Encounter Amy Harper 350.1.13.10 [place] 4.2.7.2.686 [facility] [phone] [place] [address] [address] 2020-10-31 2020-10-31 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, 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 Lab [facility] 1.2.840.114 [id number] Univers 11:38:32 11:53:32 Visit Amy Alcala 350.1.13.10 ity of [place] Profess[place] [phone] Nc dical nal 353 [facility] 2020-10-31 2020-10-31 Office [facility] 1.2.840.114 [id number] Univers 10:46:22 11:31:14 Visit Amy Harper 350.1.13.10 ity of [place] Profess[place] [id number] Nc dicindia nal 059 [facility] 2020-10-31 2020-10-31 Outpatient R FREDRICK [facility] [id number] Univers 10:40:00 10:40:00 ERICKTAMEKA omer o f [facility] 2020-10-31 2020-10-31 Orders Doctor IQBAL 1.2.840.114 [id number] Univers 00:00:00 00:00:00 Only Unassigned, JUAN C 350.1.13.10 ity of [place] [facility] 4.2.7.2.686 Sid as [phone] [address] 2020-10-30 2020-10-30 Outpatient STLMLC STLMLC [id number] Common 00:00:00 00:00:00 [facility] 2020-10-09 2020-10-09 Outpatient STLMLC STLMLC [id number] Common 00:00:00 00:00:00 [facility] 2020-09-05 2020-09-07 Outside nullFlavo MNA [id number] Memoria 16:24:59 04:59:59 Medical r Neurology 00 l Records Courtney Suarezann 2020-09-05 2020-09-07 Outside nullFlavo MNA [id number] Memoria 16:24:59 04:59:59 Medical r Neurology 00 l Records Courtney Suarezann 2020-09-05 2020-09-06 Outpatient MHMISCHER MISCHER [id number] 11:24:59 23:59:59 00 2020-09-03 2020-09-04 Outpatient nullFlavo MNA [id number] Memoria 13:15:00 04:59:59 r Neurology 03 l Courtney Gonazlez 2020-09-03 2020-09-04 Outpatient nullFlavo MNA [id number] Memoria 13:15:00 04:59:59 r Neurology 03 l Courtney Gonzalez 2020-09-03 2020-09-03 Outpatient VERONICA LarsonNVSCHER MISCHER [id number] 08:15:00 23:59:59 Herbert 03 Karthik 2020-09-03 2020-09-03 Outpatient MHIE MHIE [id number] Memoria 08:15:00 08:15:00 03 betsey Gonzalez 2020-08-20 2020-08-21 Outpatient nullFlavo MNA [id number] Memoria 16:00:00 04:59:59 r Neurology 02 l Courtney Gonzalez 2020-08-20 2020-08-21 Outpatient nullFlavo MNA [id number] Memoria 16:00:00 04:59:59 r Neurology 02 l Courtney Gonzalez 2020-08-20 2020-08-20 Outpatient VERONICA LarsonNVSCHER MISCHER [id number] 11:00:00 23:59:59 Herbert Ibeth Angeles 2020-08-20 2020-08-20 Outpatient MHIE MHIE [id number] Memoria 11:00:00 11:00:00 02 betsey Gonzalez 2020-08-20 2020-08-20 Orders Doctor IQBAL 1.2.840.114 [id number] Univers 00:00:00 00:00:00 Only Unassigned, JUAN C 350.1.13.10 ity of [place] [facility] 4.2.7.2.686 Sid as [phone] [facility] abdirizak [address] 2020-07-31 2020-07-[address] [facility] [id number] Common 00:00:00 00:00:00 [facility] 2020-07-30 2020-07-[address] [facility] [id number] Common 00:00:00 00:00:00 [facility] 2020-07-09 2020-07-09 Outpatient STLMLC STLMLC [id number] Common 00:00:00 00:00:00 [facility] 2020-07-09 2020-07-09 Outpatient STLMLC STLMLC [id number] Common 00:00:00 00:00:00 [facility] 2020-06-10 2020-06-10 Outpatient STLMLC STLMLC [id number] Common 00:00:00 00:00:00 [facility] 2020-06-04 2020-06-04 Outpatient STLMLC STLMLC [id number] Common 00:00:00 00:00:00 [facility] 2020-05-15 2020-05-15 Outpatient STLMLC STLMLC [id number] Common 00:00:00 00:00:00 [facility] 2020-05-09 2020-05-09 Outpatient STLMLC STLMLC [id number] Common 00:00:00 00:00:00 [facility] 2020-05-08 2020-05-08 Outpatient STLMLC STLMLC [id number] Common 00:00:00 00:00:00 [facility] 2020-05-01 2020-05-01 Outpatient STLMLC STLMLC [id number] Common 00:00:00 00:00:00 [facility] 2020-04-16 2020-04-16 Outpatient STLMLC STLMLC [id number] Common 00:00:00 00:00:00 [facility] 2020-03-28 2020-03-28 Outpatient STLMLC STLMLC [id number] Common 00:00:00 00:00:00 [facility] 2020-03-20 2020-03-20 Outpatient STLMLC STLMLC [id number] Common 00:00:00 00:00:00 [facility] 2020-03-16 2020-03-16 Outpatient STLMLC STLMLC [id number] Common 00:00:00 00:00:00 [facility] 2020-03-14 2020-03-14 Outpatient STLMLC STLMLC [id number] Common 00:00:00 00:00:00 [facility] 2020-03-12 2020-03-12 Outpatient STLMLC STLMLC [id number] Common 00:00:00 00:00:00 [facility] 2020-02-08 2020-02-08 Out[facility] [id number] Common 14:02:00 14:02:[address] [facility] 2020-02-07 2020-02-07 Outpatient [facility] [id number] Common 14:50:00 14:50:[address] [facility] 2020-01-25 2020-01-25 Outpatient [facility] [id number] Common 11:45:00 11:45:[address] [facility] 2020-01-21 2020-01-21 Outpatient [facility] [id number] Common 09:50:00 09:50:[address] [facility] 2020-01-14 2020-01-14 Outpatient [facility] [id number] Common 16:30:00 16:30:[address] [facility] 2020-01-07 2020-01-[address] [facility] [address] [id number] Common 10:58:00 10:58:00 [facility] [place] [facility] 2019-12-31 2019-12-31 Outpatient [facility] [id number] Common 08:32:00 08:32:[address] [facility] 2019-08-21 2019-08-21 Outpatient Analisa ARAGON [facility] [id number] Univers 08:00:00 08:00:00 BENSON tello of [facility] 2019-07-27 2019-07-27 [facility] 1.2.459.139 [id number] Univers 18:25:00 23:59:00 Encounter [facility] 350.1.13.10 ity of Surgical 4.2.7.2.686 Sid as Specialti [phone] Me dical es 8[address] [facility] 2019-07-27 2019-07-27 Outpatient R BARTOLOME [facility] [id number] Univers 18:25:00 23:59:00 ALYSIA ity [facility] 2019-07-27 2019-07-27 Urgent Erik Rosas [facility] 1.2.840.114 [id number] Univers 18:01:42 19:12:57 Care Unknown, Attending Health 350.1.13.10 ity of Alysia Perales E Surgical 4.2.7.2.686 [place] Specialti [phone] Nc dical es [address] [facility] 2019-07-11 2019-07-11 Outpatient R ESTRADA [facility] [id number] Univers 07:58:45 23:59:00 LUIS ALBERTO ity [facility] 2019-07-11 2019-07-11 [facility] 1.2.840.114 [id number] Univers 07:58:00 23:59:00 Encounter Luis Alberto [facility] 350.1.13.10 ity of [place] 4.2.7.2.686 [facility] [id number] [address] 2019-07-11 2019-07-11 Urgent Kelsey Hewitt [facility] 1.2.840.11 [id number] Univers 18:13:43 18:52:39 Care Unknown, Attending Health 350.1.13.10 ity of Surgical 4.2.7.2.686 Sid as Specialti [phone] Nc dical es [address] [facility] 2019-07-11 2019-07-11 [facility] 1.2.840.114 [id number] Univers 00:00:00 00:00:00 Kelsey [facility] 350.1.13.10 it y of Surgical 4.2.7.2.686 Sid as Specialti [phone] Nc dical es [address] [facility] 2019-05-07 2019-05-07 Outpatient [facility] [id number] Common 13:30:00 13:30:00 Amitree [facility] it [facility] 2019-01-17 2019-01-17 [place] [id number] Memoria 15:00:00 15:00:00 Pre-Reg r Primary 01 l Care Carlos Newton 2019-01-17 2019-01-17 [place] [id number] Memoria 15:00:00 15:00:00 Pre-Reg r Primary 01 l Marcello [place] 2019-01-17 2019-01-17 Outpatient VERONICAIE CAM [id number] Memoria 10:00:00 10:00:00 01 betsey Carlos 2019-01-17 2019-01-17 Outpatient Darnell, MG MG [id number] 10:00:00 10:00:00 Edward 01 Michael 2018-11-27 2018-11-28 [place] [id number] Memoria 16:15:00 04:59:59 r Primary 00 l Care Monica Dhaliwal jaky Hong 2018-11-27 2018-11-28 [place] [id number] Memoria 16:15:00 04:59:59 r Primary 00 l Care Monica starkey Hal 2018-11-27 2018-11-27 [id number] 11:15:00 23:59:59 Edward Michael 2018-11-27 2018-11-27 Outpatient VERONICAIE IE [id number] Memoria 11:15:00 11:15:00 00 betsey Suarez[place] Results Test Description Test Time Test Comments Results Result Comments Source Prepare Packed RBC (in units), 1 Units 2023-03-09 08:12:45 Test Item Value Reference Range Interpretation Comme nts Cross Match Result (test code = Compatible 9) ISBT Blood Type Code (test code = 5100 506431) Unit Blood Type (test code = 4410) O Pos Unit Number (test code = 4411) [id number] Blood Expiration Date & Time (test [id number] code = 680139) Status Information (test code = Issued 4411) Product Identification (test code = Red Blood Cells 4413) Product Code (test code = 4414) [id number] Performed at [facility] Laboratory Services - [facility] Blood [address] [place] [id number] Free: [phone] No. [id number] [facility] Packed RBC (in units), 2 Units 2023-03-09 04:18:05 Test Item Value Reference Range Interpretation Comments Cross Match Result Compatible (test code = 4409) ISBT Blood Type Code 5100 (test code = 278133) Unit Blood Type (test O Pos code = 4410) Unit Number (test [id number] code = 4411) Blood Expiration Date [id number] & Time (test code = 139334) Status Information Issued (test code = 4412) Product Red Blood Cells Identification (test code = 4413) Product Code (test [id number] Performed at [facility] code = 4414) Laboratory Services - [facility] Blood [address] [place] [id number] Free: [phone] A No. [id number] [facility] NorthwestL[facility] Acid Whole [id number] 23:17:59 Test Item Value Reference Range Interpretation Comments LACTIC ACID (test code = 3.38 mmol/L 0.50-2.20 H [id number]) Lab Interpretation (test code = Abnormal 52069-6) [facility]ACTIV[facility] PARTIAL THRMPLAS [id number] 22:43:29 Test Item Value Reference Range Interpretation Comments APTT Patient (test 24 See_Comment [Automat ed code = 3173-2) message] The system which generated this result transmitted reference range : 23 - 38 Seconds . The reference range was not used to interpr et this result as normal/abnormal . JJ (test code = JJ) The [facility] patient population mean normal value for aPTT is 30 seconds. Lab Interpretation Normal (test code = 55229-2) [facility] WITH [id number] 22:21:58 Test Item Value Reference Range Interpretation Comments WBC (test code = 13.99 See_Comment H [Automated 0190-2) message] The sy stem which generated this result transmitted reference range : 4.30 - 11.10 10*3/?L. The reference range was not used to interpret this result as normal/abnormal . RBC (test code = 1.41 See_Comment L [Automated 029-8) message] The sy stem which generated this result transmitted reference range : 3.93 - 5.25 10*6/?L. The reference range was not used to interpret this result as normal/abnormal . HGB (test code = 3.0 g/dL 11.6-15.0 LL 718-7) HCT (test code = 10.5 % 35.7-45.2 LL 4544-3) MCV (test code = 74.5 fL 80.6-95.5 L 787-2) MCH (test code = 21.3 pg 25.9-32.8 L 785-6) MCHC (test code = 28.6 g/dL 31.6-35.1 L 786-4) RDW-SD (test code = 47.7 fL 39.0-49.9 97167-7) RDW-CV (test code = 18.1 % 12.0-15.5 H 788-0) PLT (test code = 445 See_Comment H [Automated 777-3) message] The sy stem which generated this result transmitted reference range : 166 - 358 10*3/ ?L. The reference r champ was not used to interpret this result as normal/abnormal . MPV (test code = 10.7 fL 9.5-12.9 38190-9) IPF % (test code = 3.5 % 1.3-7.7 Platelet count [id number]) measured by fluorescence method. NRBC/100 WBC (test 0.3 See_Comment [Automat ed code = 5121685332) message] The system which generated this result transmitted reference range : 0.0 - 10.0 /100 WBCs. The refer ence range was not u sed to interpret th is result as normal/abnormal . NRBC x10^3 (test code 0.04 See_Comment [Auto mated = 2501381640) message] The s ystem which generated this result transmitted reference range : 10*3/?L. The reference range was not used to interpret this result as normal/abnormal . GRAN MAT (NEUT) % 82.5 % (test code = 770-8) IMM GRAN % (test code 0.70 % = 5405351266) LYMPH % (test code = 11.7 % 736-9) MONO % (test code = 4.9 % 5905-5) EOS % (test code = 0.1 % 713-8) BASO % (test code = 0.1 % 706-2) GRAN MAT x10^3(ANC) 11.54 10*3/uL 1.88-7.09 H (test code = 4818757904) IMM GRAN x10^3 (test 0.10 10*3/uL 0.00-0.06 H code = 0429294975) LYMPH x10^3 (test 1.64 10*3/uL 1.32-3.29 code = 731-0) MONO x10^3 (test code 0.69 10*3/uL 0.33-0.92 = 742-7) EOS x10^3 (test code 0.03-0.39 L = 711-2) BASO x10^3 (test code 0.01-0.07 = 704-7) Lab Interpretation Abnormal (test code = 56126-3) [id number]:22:17 Test Item Value Reference Range Interpretation Comments TROPONIN I (test code = 0.001 ng/mL <=0.034 8533185550) JJ (test code = JJ) Reference (Normal) Range (defined by the 99th percentile reference limit): <= 0.034 ng/mL Note: Cardiac troponin begins to rise 3-4 hours after the onset of ischemia. Repeat in 4-6 hours if the sample was drawn within 3-4 hours of the onset of the symptom and found normal. Diagnosis of myocardial injury is made with acute changes in cTn concentrations with at least one serial sample above the 99th percentile upper reference limit (URL), taken together with the patient's clinical presentation. Biotin has been reported to cause a negative bias, interpret results relative to patient's use of biotin. Lab Interpretation Normal (test code = 59314-2) [facility]-TERMINAL [id number] 21:19:34 Test Item Value Reference Range Interpretation Comments NT-proBNP (test code = 196 pg/mL <=125 17675-8) JJ (test code = JJ) Result Indeterminate-Consid er causes of NT-proBNP elevation other than Heart failure such as acute coronary syndrome, pulmonary embolism, pulmonary hypertension, sepsis, stroke, and renal dysfunction. Lab Interpretation (test Abnormal code = 93966-0) [facility] METABOLIC PANEL ([id number])2023-03-08 21:11:11 Test Item Value Reference Range Interpretation Comments NA (test code = 137 mmol/L 135-145 9945394876) K (test code = 3.7 mmol/L 3.5-5.0 5254488893) CL (test code = 103 mmol/L 98-108 8672558324) CO2 TOTAL (test code = 17 mmol/L 23-31 L 6226101354) AGAP (test code = 17 2-16 H 0383048740) BUN (test code = 12 mg/dL 7-23 5965443352) GLUCOSE (test code = 150 mg/dL 70-110 H 9092004198) CREATININE (test code = 0.58 mg/dL 0.50-1.04 9626650827) TOTAL BILI (test code = 0.3 mg/dL 0.1-1.0 4468091578) CALCIUM (test code = 7.5 mg/dL 8.6-10.6 L 5808278329) T PROTEIN (test code = 6.6 g/dL 6.3-8.2 5990674445) ALBUMIN (test code = 3.2 g/dL 3.5-5.0 L 4582714431) ALK PHOS (test code = 64 U/L 34-122 8224846203) ALTv (test code = 14 U/L 5-35 1742-6) AST(SGOT) (test code = 45 U/L 13-40 H 8837515807) eGFR (test code = 108.3 mL/min/1.73m2 0731599686) JJ (test code = JJ) Association of Glomerular Filtration Rate (GFR) and Staging of Kidney Disease* + --+ --+ ------+| GFR (mL/min/1.73 m2) ?| With Kidney Damage ?| ?Without Kidney Damage+ --------+ --------+ +| ?>90 ?| ?Stage one ?| ? Normal ?+ ---+ ---+ -------+| ?60-89 ?| ?Stage two ?| ? Decreased GFR ? + --+ --+ ------+| ?30-59 ?| ?Stage three ?| ? Stage three ? + --+ --+ ------+| ?15-29 ?| ?Stage four ? | ? Stage four ?+ ---+ ---+ -------+| ?<15 (or dialysis) ? ?| ?Stage five ? | ? Stage five ?+ ---+ ---+ -------+ *Each stage assumes the associated GFR level has been in effect for at least three months. ?Stages 1 to 5, with or without kidney disease, indicate chronic kidney disease. Notes: Determination of stages one and two (with eGFR >59mL/min/1.73 m2) requires estimation of kidney damage for at least three months as defined by structural or functional abnormalities of the kidney, manifested by either:Pathological abnormalities or Markers of kidney damage (including abnormalities in the composition of the blood or urine or abnormalities in imaging tests). Lab Interpretation Abnormal (test code = 43681-2) [facility] NorthwestPROTHROMBIN TIME / [id number] 21:10:35 Test Item Value Reference Range Interpretation Comments PROTIME PATIENT (test 14.4 See_Comment [Auto mated message] code = 5964-2) The system [employer] generated this result transmitted ref erence range: 12.0 - 1 4.7 Seconds. The re ference range was not u sed to interpret this result as normal/abnor mal. INR (test code = 6301-6) 1.1 Nor mal INR <1.1; Warfarin Therap eutic range 2.0 to 3. 0 or 2.5 to 3.5, dep ending upon the indica tions. Lab Interpretation (test Normal code = 64313-6) [facility] NorthwestLactic Acid Whole [id number] 20:35:03 Test Item Value Reference Range Interpretation Comments LACTIC ACID (test code = 4.23 mmol/L 0.50-2.20 H 6981280202) Lab Interpretation (test code = Abnormal 24767-2) [facility] NorthwestSARS-CoV-2 (COVID-19) RNA [Presence] in Respiratory specimen by VITALIY with probe [id number] 01:12:19 Test Item Value Reference Range Interpretation Comments SARS-CoV-2 (COVID-19) RNA Not detected [Presence] in Respiratory specimen by VITALIY with probe detection (test code = 06977-2) Whether patient is employed in a Unknown healthcare setting (test code = 22960-3) Whether the patient has symptoms Unknown related to condition of interest (test code = 70633-8) Whether the patient was Unknown hospitalized for condition of interest (test code = 72470-1) Whether the patient was admitted Unknown to intensive care unit (ICU) for condition of interest (test code = 30824-5) Whether patient resides in a Unknown congregate care setting (test code = 38810-6) status (test code = Unknown 30388-8) Date and time of symptom onset Unknown (test code = 26319-2) MUSA NATHAN"
[2023-03-22 18:17] LABS: Absolute Lymphocytes (CBC) 1.8 K/uL (0.7-4.9); Hematocrit 22.6 % (36.0-45.0); Lymphocytes % 15.3 % (15.3-44.8); MCV 82.5 fL (80-100); MPV 6.5 fL (7.6-11.3); Platelets 786 thou/uL (152-406); RBC Red Blood Cell Count 2.74 M/uL (3.86-4.86)
[2023-03-22 18:37] LABS: Potassium 3.8 mEq/L (3.5-5.1)
[2023-03-22] MEDS ORDERED: NA CHLORIDE 0.9% 250 ML ONE (21:42)
--- NOTE | 2023-03-22 23:33 | EDPHYS ---
Physician Documentation [facility] Name: Sherrie Rojas Age: 52 yrs Sex: Female : 1970 Arrival Date: 03/22/2023 Time: 17:28 Bed 16 Private MD: Fabricio [facility] ED Physician Mickey Porter HPI: 03/22 22:07 This 52 yrs old Female presents to ER via Ambulatory with complaints of Abnormal Lab kb Results. 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 States she had a blood transfusion last month, had blood work done yesterday and was told her hemoglobin 6.7 so she did come in for a blood transfusion. Patient reports fatigue but denies any other symptoms.. Severity of symptoms: At their worst the symptoms were mild in the emergency department the symptoms are unchanged. The patient has not experienced similar symptoms in the past. The patient has not recently seen a physician. Historical: - Allergies: 17:34 sulfamethoxazole-trimethoprim; cm10 17:34 Levofloxacin; cm10 17:34 Silicone; cm10 17:34 Latex, Natural Rubber; cm10 17:34 Hand Enforcement Safety Officer; cm10 17:43 Iodine; cm10 - PMHx: 17:43 Esophageal Cancer; Asthma; Tracheostomy; cm10 - Immunization history:: Adult Immunizations unknown. - Social history:: Smoking status: Patient denies any tobacco usage or history of. ROS: 22:05 Respiratory: Negative for shortness of breath, cough, wheezing, and pleuritic chest kb pain, 22:05 Constitutional: Positive for fatigue, 22:05 All other systems are negative, Exam: 22:05 Constitutional: This is a well developed, well nourished patient who is awake, alert, kb and in no acute distress. Head/Face: Normocephalic, atraumatic. ENT: Moist Mucous membranes Cardiovascular: Regular rate Respiratory: Respirations even and unlabored. No increased work of breathing. Talking in full sentences Skin: Warm, dry with normal turgor. Normal color. MS/ Extremity: Pulses equal, no cyanosis. Neurovascular intact. Full, normal range of motion. Neuro: Awake and alert, GCS 15, oriented to person, place, time, and situation. Moves all extremities. Normal gait. 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 3 cm10 in. ; Pain 0/10; 18:15 BP 121 / 54; Pulse 90; Resp 16; Pulse Ox 98% ; ko1 19:06 BP 104 / 78; Pulse 91; Resp 17; Pulse Ox 100% ; jw7 20:30 BP 131 / 73; Pulse 86; Resp 18 S; Pulse Ox 98% on R/A; jw7 21:45 BP 85 / 60 RA Sitting (auto/reg); Pulse 87 MON; Resp 17 S; Temp 99.1(TE); Pulse Ox 96% jw7 on R/A; 22:00 BP 123 / 71 RA Sitting (auto/reg); Pulse 83 MON; Resp 18 S; Temp 98.8(TE); Pulse Ox 95% jw7 on R/A; 23:15 BP 123 / 80 RA Sitting (auto/reg); Pulse 88 MON; Resp 17 S; Temp 99.5(TE); Pulse Ox 97% jw7 on R/A; 23:45 BP 115 / 71 RA Sitting (auto/reg); Pulse 82 MON; Resp 18 S; Temp 99.1(TE); Pulse Ox 95% jw7 on R/A; 17:42 Body Mass Index 21.26 (54.43 kg, 160.02 cm) cm10 17:42 Pain Scale: Adult cm10 MDM: 17:30 Patient medically screened. kb 22:06 Differential diagnosis: anemia, electrolyte imbalance, infection. Data reviewed: vital kb signs, nurses notes. Counseling: I had a detailed discussion with the patient and/or guardian regarding the historical points, exam findings, and any diagnostic results supporting the discharge/admit diagnosis, lab results, the need for outpatient follow up, a family practitioner, to return to the emergency department if symptoms worsen or persist or if there are any questions or concerns that arise at home. 03/22 17:35 Order name: CBC with Diff; Complete Time: 18:25 kb 03/22 17:35 Order name: Basic Metabolic Panel; Complete Time: 18:43 kb 03/22 17:35 Order name: Type And Screen kb 03/22 18:38 Order name: Bb Add On ss 10/24 18:41 Order name: Packed RBC Leukored EDLA 03/22 21:09 Order name: ABO/RH no charge; Complete Time: 21:10 EDLA 03/22 17:35 Order name: IV Start; Complete Time: 18:34 kb Administered Medications: No medications were administered Disposition Summary: 03/22/23 23:33 Discharge Ordered Notes: Location: Home kb Condition: Stable kb Diagnosis - Anemia, unspecified kb Followup: kb - With: Emergency Department - When: As needed - Reason: Worsening of condition Followup: kb - With: Private Physician - When: 2 - 3 days - Reason: Recheck today's complaints, Continuance of care, Re-evaluation by your physician Discharge Instructions: - Discharge Summary Sheet kb - Blood Transfusion, Adult, [id number] kb - Blood Transfusion, Adult, Care After, Oofi-ni-Clyh kb Forms: - Medication Reconciliation Form kb - Thank You Letter kb - Antibiotic Education kb - Prescription Opioid Use kb - Patient Portal Instructions kb - Leadership Thank You Letter kb Signatures: Dispatcher [employer] Yessi Dent, COOLER TENDER-C COOLER TENDER-Effie Fuentes, RN RN cm10
--- NOTE | 2023-03-22 23:33 | ER ---
Nurse's Notes [facility] [place] Name: Sherrie Rojas Age: 52 yrs Sex: Female : 1970 Arrival Date: 03/22/2023 Time: 17:28 Bed 16 Private MD: Elpidio Regalado Diagnosis: Anemia, unspecified Presentation: 03/22 17:42 Chief complaint: Patient states: sent over for low hgb. Per patient, hgb was 6.7. No cm10 complaints at this time. Coronavirus screen: Vaccine status: Patient reports being unvaccinated. Client denies travel out of the [place] in the last 14 days. Ebola Screen: Patient denies travel to an Ebola-affected area in the 21 days before illness onset. No symptoms or risks identified at this time. Initial Sepsis Screen: Does the patient meet any 2 criteria? No. Patient's initial sepsis screen is negative. Does the patient have a suspected source of infection? No. Patient's initial sepsis screen is negative. Risk Assessment: Do you want to hurt yourself or someone else? Patient reports no desire to harm self or others. Onset of symptoms was March 22, 2023. 17:42 Method Of Arrival: Ambulatory cm10 17:42 Acuity: LEVI 3 cm10 Historical: - Allergies: 17:34 sulfamethoxazole-trimethoprim; cm10 17:34 Levofloxacin; cm10 17:34 Silicone; cm10 17:34 Latex, Natural Rubber; cm10 17:34 Hand Zipper Lining Folder; cm10 17:43 Iodine; cm10 - PMHx: 17:43 Esophageal Cancer; Asthma; Tracheostomy; cm10 - Immunization history:: Adult Immunizations unknown. - Social history:: Smoking status: Patient denies any tobacco usage or history of. Screenin:15 [facility] ED Fall Risk Assessment (Adult) History of falling in the last 3 months, ko1 including since admission No falls in past 3 months (0 pts) Confusion or Disorientation No (0 pts) Intoxicated or Sedated No (0 pts) Impaired Gait No (0 pts) Mobility Assist Device Used No (0 pt) Altered Elimination No (0 pt) Score/Fall Risk Level 0 - 2 = Low Risk Oriented to surroundings, Maintained a safe environment, Educated pt \T\ family on fall prevention, incl call for assistance when getting out of bed, Assessed \T\ reinforced patient's understanding of fall precautions, Provided non-skid footwear, Hourly rounding (assess needs \T\ fall precautionary measures) done, Used ambulatory aids as needed (educated on \T\ assisted with), Used gait belt as appropriate. Abuse screen: Denies threats or abuse. Denies injuries from another. Nutritional screening: No deficits noted. Tuberculosis screening: No symptoms or risk factors identified. Assessment: 18:15 General: Appears in no apparent distress. Behavior is calm, cooperative, appropriate ko1 for age. Pain: Denies pain. Neuro: No deficits noted. Cardiovascular: No deficits noted. Respiratory: Airway via trache. GI: No deficits noted. : No deficits noted. EENT: No deficits noted. Derm: No deficits noted. Musculoskeletal: No deficits noted. 19:06 Reassessment: Patient appears in no apparent distress at this time. No changes from [facility] previously documented assessment. Patient and/or family updated on plan of care and expected duration. Pain level reassessed. Patient is alert, oriented x 3, equal unlabored respirations, skin warm/dry/pink. 20:30 Reassessment: Patient appears in no apparent distress at this time. No changes from 7 previously documented assessment. Patient and/or family updated on plan of care and expected duration. Pain level reassessed. Patient is alert, oriented x 3, equal unlabored respirations, skin warm/dry/pink. 21:35 Reassessment: Patient appears in no apparent distress at this time. No changes from 7 previously documented assessment. Patient and/or family updated on plan of care and expected duration. Pain level reassessed. Patient is alert, oriented x 3, equal unlabored respirations, skin warm/dry/pink. 21:45 General: Blood Transfusion started, see Transfusion Record Flowsheet. jw7 22:30 Reassessment: Patient appears in no apparent distress at this time. No changes from 7 previously documented assessment. Patient and/or family updated on plan of care and expected duration. Pain level reassessed. Patient is alert, oriented x 3, equal unlabored respirations, skin warm/dry/pink. 23:25 Reassessment: Patient appears in no apparent distress at this time. Patient and/or [facility] family updated on plan of care and expected duration. Pain level reassessed. Patient is alert, oriented x 3, equal unlabored respirations, skin warm/dry/pink. Patient states feeling better. 23:34 General: Discharge pending completion of blood products. . jw7 23:50 Reassessment: Patient appears in no apparent distress at this time. Patient and/or jw7 family updated on plan of care and expected duration. Pain level reassessed. Patient is alert, oriented x 3, equal unlabored respirations, skin warm/dry/pink. Patient states feeling better. Patient states symptoms have improved. Vital Signs: 17:42 BP 118 / 52; Pulse 87; Resp 16; Pulse Ox 99% on R/A; Weight 54.43 kg; Height 5 ft. 3 cm10 in. ; Pain 0/10; 18:15 BP 121 / 54; Pulse 90; Resp 16; Pulse Ox 98% ; ko1 19:06 BP 104 / 78; Pulse 91; Resp 17; Pulse Ox 100% ; jw7 20:30 BP 131 / 73; Pulse 86; Resp 18 S; Pulse Ox 98% on R/A; jw7 21:45 BP 85 / 60 RA Sitting (auto/reg); Pulse 87 MON; Resp 17 S; Temp 99.1(TE); Pulse Ox 96% jw7 on R/A; 22:00 BP 123 / 71 RA Sitting (auto/reg); Pulse 83 MON; Resp 18 S; Temp 98.8(TE); Pulse Ox 95% jw7 on R/A; 23:15 BP 123 / 80 RA Sitting (auto/reg); Pulse 88 MON; Resp 17 S; Temp 99.5(TE); Pulse Ox 97% jw7 on R/A; 23:45 BP 115 / 71 RA Sitting (auto/reg); Pulse 82 MON; Resp 18 S; Temp 99.1(TE); Pulse Ox 95% jw7 on R/A; 17:42 Body Mass Index 21.26 (54.43 kg, 160.02 cm) cm10 17:42 Pain Scale: Adult cm10 ED Course: 17:29 Patient arrived in ED. rg4 17:30 Elpidio Regalado DO is Private Physician. rg4 17:30 Yessi Wilson FNP-C [facility]. kb 17:30 Mickey Porter MD is Attending Physician. kb 17:43 Triage completed. cm10 17:44 Arm band placed on Patient placed in an exam room, on a stretcher. cm10 17:45 Giovanna Tran, RN is Primary Nurse. ko1 18:05 Inserted saline lock: 22 gauge in left forearm, using aseptic technique. Blood db collected. 18:15 Patient has correct armband on for positive identification. Bed in low position. Call ko1 light in reach. Provided Education on: na. Pulse ox on. NIBP on. Door closed. Visitors limited. Lights dimmed. Warm blanket given. 20:11 Primary Nurse role handed off by Giovanna Tran, RN as6 20:17 Laura Sanchez, RN is Primary Nurse. jw7 20:26 Bb Add On Sent. jw7 03/23 00:07 No provider procedures requiring assistance completed. IV discontinued, intact, jw7 bleeding controlled, No redness/swelling at site. Pressure dressing applied. Administered Medications: No medications were administered Medication: 00:08 VIS not applicable for this client. jw7 Outcome: 03/22 23:33 Discharge ordered by . concha 03/23 00:07 Discharged to home ambulatory, with family, jwTravis Condition: stable Discharge instructions given to patient, Instructed on discharge instructions, follow up and referral plans. Demonstrated understanding of instructions, follow-up care, 00:08 Patient left the ED. jw7 Signatures: Yessi Wilson, ACTUARIAL MATHEMATICIAN-C ACTUARIAL MATHEMATICIAN-Yashira Wang4 Lester Ramirez RN RN as6 Laura Sanchez, RN RN jw7 Giovanna Tran, RN RN ko1 Radha Maza RN Effie Cullen, RN RN cm10
[2023-03-24 15:28] VITALS: BP 115/71; TEMP 99.1; O2SAT 95
== END 2023-03-23 00:08 | disposition home or self-care (01) ==
LOC: ER 17:28
PROC: 30233N1 Transfusion of Nonautologous Red Blood Cells into Peripheral Vein, Percutaneous Approach (ICD-10-PCS; principal; 2023-03-23)
DX: D64.9 Anemia, unspecified (principal); Z88.2 Allergy status to sulfonamides; Z88.3 Allergy status to other anti-infective agents; Z88.8 Allergy status to other drugs, medicaments and biological substances; Z91.040 Latex allergy status; Z91.048 Other nonmedicinal substance allergy status; Z85.01 Personal history of malignant neoplasm of esophagus
CPT/HCPCS: 85025; 80048; 36415; 86900; 86850; 86901; 86920; 99284; 36430; P9016; J7050

== ENCOUNTER 2023-04-01 12:01 | Emergency (ER) | payer OTHER ==
--- OUTSIDE RECORDS SUMMARY | 2023-04-01 12:04 | XMS REPORT | Clinical Summary ---
:[address] [facility] MD Garcia [facility] Center Address [address] [place] [address] Care Team Providers Name Role Phone Kev Whitt MD Unavailable Phyllis Modi RD Unavailable Unavailable Yimi Matos MD Unavailable Yimi Matos MD Primary Care Provider Darby Barrera CCC-CHIEF HUMAN RESOURCES OFFICER Unavailable Toby العراقي CCC-CHIEF HUMAN RESOURCES OFFICER Unavailable Unavailable Maryam Lucio MD Unavailable Elpidio [...] s): Comments) Unknown - See comments Tiotropium Ashley Shortness Of Breath High 09/10/2016 Triamterene-Hydrochlorot Swelling [...] Added automatically from request for tereso tolbert [id number] Squamous cell carcinoma of esophagus 01/13/2022 Cancer Staging: Clinical stage from 01/25: Stage CYNTHIA (cT4b, cN3, cM0, GX, L: Upper) - Signed by Horace Day MD PhD on 01/29/2022 Acute on chronic hypoxemic respiratory failure Stridor Agitation Electrolyte and fluid disorders not elsewhere classified Encounters Date Type Department Care Team Description 03/28/2023 Orders Only MD [facility] in [facility] Lexi Hughes Squa mous cell [facility] carcinoma of Surgery esophagus (Primary [address] [place]) [place] [address] 03/11/2023 Telephone MD Porter in [facility] voice golden [place] [facility] - Surgical Yamilet, proj mgr [address] [place] [address] 01/07/2023 Follow-Up MD Porter in [facility] Yimi Matos Squa mous cell 11:30 AM [facility] carcinoma of T Surgery esophagus [address] [place] [address] 01/07/2023 Travel 12/28/2022 Orders Only MD Porter in [facility] Lexi Hughes Squa mous cell [facility] carcinoma of Surgery esophagus (Primary [address] [place]) [place] [address] 10/05/2022 Follow-Up MD Porter in [facility] Yimi Matos Squa mous cell 9:30 AM CDT [facility] - Head [facility] Ne[facility] carcinoma of Surgery esophagus [address] [place] [address] 10/05/2022 Travel 09/06/2022 Orders Only [facility] Lexi Hughes Squa mous cell - Surgical Oncology ANA LUISA carcinoma of [address] esophagus (Primary Main Bldg, 10th Dx) Floor, [place] [address] 08/13/2022 Orders Only Cardiopulmonary Mackenney, Tracheostomy care Center - Pulmonology MICHAEL Dukes (Primar y Dx) Medicine [address] Main Bldg, 6th [place] [address] 08/13/2022 Orders Only Cardiopulmonary Cu[place]em[place], [place], [place] - Pulmonology BUDGET OFFICER Medicine [address] Main Bldg, 6th [place] [address] 07/14/2022 Hospital Encounter [facility] Yimi Matos , Squamous cell carcinoma of esophagus 7:43 AM GRAIN COMMODITY MANAGER - Surgical Oncology MD Discharge Disposition: Home - [address] 07/14/2022 Main Bldg, 10th 11:59 PM Floor, [place] [address] 07/14/2022 Travel 07/12/2022 Ancillary Procedure PET Imaging Yimi Matos, Squamous cell 4:30 PM GRAIN COMMODITY MANAGER 122Adonay Paul MD carcinoma of [facility], 6th esophagus [place] [address] 07/12/2022 Travel 07/09/2022 Telephone PET Imaging Sarah Hughes RN [address] [facility], 6th [place] [address] 06/22/2022 Orders Only [facility] Yimi Matos Squa mous cell - Surgical Oncology carcinoma of [address] esophagus (Primary Main Bldg, 10th Dx) Floor, [place] [address] 05/03/2022 Documentation Case Management Catalina Ritter [address] [place] [address] 04/21/2022 Documentation Case Management Lor Beck [facility] [place] [address] 04/16/2022 Documentation Case Management Jany BeckTracy [facility] [place] [address] 04/16/2022 Orders Only [facility] Center Lexi Hughes, Tobin atkinson - Surgical Oncology PA carcinoma of [address] [facility] esophagus (Primary Main Bldg, 10th Dx) Floor, [place] [address] 04/14/2022 Hospital Encounter Head and Neck Center [facility] S quamous cell carcinoma of esophagus 11:00 AM - Speech Pathology Nelson Jeff, Discharge Disposition: Home GRAIN COMMODITY MANAGER - [address] Paul MD 04/14/2022 Main Bldg, 10th Floo r Dulce Maria, 11:59 PM Elevator A Toby Woodall, [place] [address] [facility]-CHIEF HUMAN RESOURCES OFFICER [phone] 04/14/2022 Hospital Encounter Head and Neck Center Yimi Matos , Squamous cell carcinoma of esophagus; 10:04 AM - Surgical Oncology Tracheostomy present GRAIN COMMODITY MANAGER - [address] Josef Cornejo, Discharge Disposition: Home 04/14/2022 Main Kristina, 10th 10:59 AM Floor, [place] [address] 04/14/2022 [facility] Milena, - Speech Pathology Yamilet Mendoza, [address] [facility]-CHIEF HUMAN RESOURCES OFFICER Main Bldg, 10th [place] [address] 04/14/2022 Orders Only Head and Neck Center Lexi Hughes, - Surgical Oncology PA [address] Main Bldg, 10th Floor, [place] [address] 04/14/2022 Travel 04/13/2022 Orders Only MD Porter in [facility] Lexi Hughes, Tobin mayo [facility] - Head & Neck PA carcinoma of Surgery esophagus (Primary [address]x) [place] [address] 04/13/2022 Orders Only Head [facility] Neck Center Lexi Hughes, - Surgical Oncology PA [address] [facility] Main Bldg, 10th Floor, [place] [address] 04/13/2022 Orders Only Head [facility] Neck Center Lexi Hughes, Tobin mayo cell - Surgical Oncology PA carcinoma of [address] esophagus (Primary Main Bldg, 10th Dx) Floor, [place] [address] 04/12/2022 Telephone Cardiopulmonary Lashawn Alexandra N, [facility] Pulmonology BUDGET OFFICER Medicine [address] Main Bldg, 6th [place] [address] 04/12/2022 Orders Only Cardiopulmonary Nasrin Lashawn N, Carcinom a of [facility] Pulmonology BUDGET OFFICER esophag Medicine [address] Main Bldg, 6th [place] [address] 04/08/2022 Orders Only Cardiopulmonary Lashawn Alexandra N, Carcinom a of [facility] Pulmonology BUDGET OFFICER esophag Medicine [address] [facility] Main Bldg, 6th [place] [address] 04/07/2022 Orders Only Cardiopulmonary Rubin Alexandraci N, Obstruct ion of [facility] Pulmonology BUDGET OFFICER trachea (Primary Medicine Dx) [address] [facility] Main Bldg, 6th [place] [address] 04/06/2022 Refill Cardiopulmonary MirelesArely Carcinom a of [facility] Pulmonology C, RN esophag Medicine [address] [facility] Main Bldg, 6th [place] [address] 04/06/2022 Orders Only Neuroradiology Dwight Chávez, [address] [place] [address] 04/06/2022 Orders Only Head and Neck Center Yimi Matos Carc inoma of esophagus (Primary Dx); - Surgical Oncology MD Unspecified complication fol lowing infusion and therapeutic injection, initial encounter [address] Main [address]ld[address], 10th Floor, [place] [address] after 04/01/2022 Surgical History Surgery Date Site/Laterality Comments HERNIA REPAIR 2017 HYSTERECTOMY 2017 BRONCHOSCOPY 2021 [place] TRACHEOSTOMY PLANNED 01/20/2022 Neck/N/A Procedur e: TRACHEOSTOMY - SEPARATE PROCEDURE PLANNED; Surg jo-ann: Yimi Matos MD; Lo cation: MAIN OR; Service: [facility] - HEAD & NECK SURGERY IA BRNCHSC W/DSTRJ SYDNI RELIEF 01/20/2022 Bronchus/N/A Pr ocedure: FLEXIBLE OR RIGID STENOSIS OTH/THN EXC BRONCHOSCOP Y WITH DESTRUCTION OF TUMOR OR STEN OSIS RELIEF (LASER, CRYOTHER APY); Surgeon: Maryam Lucio MD; Location: [facility]IN [facility]; Service: PULMONA RY Medical History Medical History Date Comments Neuropathy 2020 Allergic rhinitis Lifelong Swallowing problem 2016 Asthma Lifelong Gastric reflux 2009 No longer Uterine leiomyoma 2009 Removed Arthritis 2014 Gout 2011 Anxiety Alcohol abuse Suicide attempt 1998 Cancer of pharynx 2021 Family History Medical [...] CDT Oxygen Saturation 97% 07/14/2022 8:29 AM GRAIN COMMODITY MANAGER Inhaled Oxygen Concentration - - Weight 58.7 kg (129 lb 6.6 oz) 01/07/2023 11:39 AM CDT Height 160 cm (5' 2.99") 07/12/2022 4:08 PM GRAIN COMMODITY MANAGER Body Mass Index 22.93 07/12/2022 4:08 PM GRAIN COMMODITY MANAGER Plan of Treatment Date Type Department Care Team Description 04/12/2023 11:30 Follow-Up MD Porter in [facility] Yimi Matos MD AM GRAIN COMMODITY MANAGER [facility] [address] [facility] [place] [address] [address] [place] [address] [phone] Health Maintenance Due Date Last Done Comments COVID-19 Vaccination (#1) 03/21/1971 Procedures Procedure Name Priority Date/Time Associated Comments Diagnosis PETCT SUBSEQUENT Routine 07/12/2022 5:57 PM Squamous cell Resu lts for this TREATMENT STRATEGY GRAIN COMMODITY MANAGER carcinoma of procedure are in esophagus the results section. after 04/01/2022 Results PETCT Subsequent Treatment Strategy (07/12/2022 5:57 PM GRAIN COMMODITY MANAGER) Anatomical Region Laterality Modality Whole Body Positron Emission To mography (PET) Specimen (Source) Anatomical Collection Method Collection Time Re ceived Time Location / / Volume Laterality 07/13/2022 8:33 AM GRAIN COMMODITY MANAGER Impressions 07/13/2022 11:08 AM GRAIN COMMODITY MANAGER 1. IMPRESSION: Progression of disease as evidenced [...] the final report. Narrative 07/13/2022 11:08 AM GRAIN COMMODITY MANAGER FULL RESULT: Examination: FDG PET/CT, 07/12/2022 5:57 [...] Yimi Matos MD IMG PETCT ORDERABLES after 04/01/2022 Insurance Payer Benefit Plan / Subscriber ID Effective Dates Phone Addre ss Type Group [employer] [facility] [id number] 2021-Present [id number] [facility] [place] [place] [address] Advance Directives Code Status Date Activated Date Inactivated Comments Full Code 01/20/2022 4:24 PM 01/26/2022 6:38 PM Care Teams Cordage Sales Representative Relationship Specialty Start Date End Date Kev Whitt, PCP - External Follow Up Radiation Oncology MD Gaytan [address] [place] [address] Yimi Matos MD PCP - General Head and Neck Surgery 03/02/[address] [place] [id number] Phyllis Modi, Clinical Dietitian Nutrition 02/16/[address] [place] [address] Yimi Matos MD Physician Head and Neck Surgery 02/24/[address] [place] [address] Darby Barrera, Speech Language Speech Pathology 03/30/22 CCC-CHIEF HUMAN RESOURCES OFFICER Pathologist [address] [place] [address] Toby العراقي Speech Language Speech Pathology 04/14/22 Jose C, CCC-CHIEF HUMAN RESOURCES OFFICER Pathologist [address] [place] [address] Maryam Lucio MD Consulting Physician Pulmonary Medicine 01/19/[address] [place] [address] Fabricio [facility] 03/11/23 DO Mathew [address] [place] [id number]
--- OUTSIDE RECORDS SUMMARY | 2023-04-01 12:34 | XMS REPORT | Continuity of Care Document ---
:1970 Author Organization [facility] t Address [address] [facility] [address] [place] [address] Care Team Providers Name Role Phone Fabricio HUGHES [facility] Primary Care Physician [phone] Elpidio Regalado Attending Clinician Unavailable SYSTEM, PROVIDER NOT IN Attending Clinician Unavailable ATIF ROSEN Attending Clinician Unavailable Lexi Granger Attending Clinician Herbert Larson Attending Clinician Yamilet Lugo RN Attending Clinician RADAMES HARMAN Attending Clinician Unavailable Will Stratton MD Attending Clinician Radames Harman MD Attending Clinician Felicitas Matos MD Attending Clinician Kinjal VC++ DEVELOPER, Roseline Attending Clinician Cuauhtemoc VC++ DEVELOPER, Ngoc Attending Clinician Doctor Unassigned, Kinross Attending Clinician Unavailable Saul GIBSON, Sarah Attending Clinician Unavailable Elzbieta Gaona DO Attending Clinician Stone GIBSON, Catalina Fitzgerald Attending Clinician Kiran GIBSON, Sheree Ng Attending Clinician Dayne Bentley MD, Bethany Attending Clinician [phone] Dulce Maria CCC-ASSOCIATE MANAGER, Toby Woodall Attending Clinician Unavailable Sushila RON, Josef Attending Clinician Milena CCC-ASSOCIATE MANAGER, Yamilet Mendoza Attending Clinician [phone] Nasrin VC++ DEVELOPER, Lashawn Card Attending Clinician Chi GIBSON, Arely Ng Attending Clinician Unavailable Dwight Chávez MD Attending Clinician FELICITAS MATOS Attending Clinician Unavailable ELISE GARCIA Attending Clinician Unavailable CATALINA ROSALES Attending Clinician Unavailable Catalina Rosales DO Attending Clinician BETHANY COBOS Attending Clinician Unavailable JASMYNE CHRIS Attending Clinician Unavailable PATRICIO JAMISON Attending Clinician Unavailable MARLON ROWE Attending Clinician Unavailable Enio Cevallos Attending Clinician Marlon Rowe MD Attending Clinician Nicole HUSSEIN Attending Clinician Unavailable Nicole Mcfarlane Attending Clinician Bety Ceja MD Attending Clinician GWENDOLYN CUMMINGS Attending Clinician Unavailable STEPHANIE HENRY Attending Clinician Unavailable Gage RON, Nell Ashford Attending Clinician [phone] Sariah Carroll LVN Attending Clinician Estevan Patel MD Attending Clinician BETY CEJA Attending Clinician Unavailable Michael Danielle MD Attending Clinician ELZBIETA GAONA Attending Clinician Unavailable ELZBIETA GAONA Attending Clinician Unavailable Vanessa Regalado DO Attending Clinician Lisa RON, Suly Attending Clinician TONY LAZCANO Attending Clinician Unavailable Liam BRAY, Lauren S Attending Clinician Lan Maza MD, Fox Myers Attending Clinician [phone] Tony Lazcano MD Attending Clinician Madyson Henson MD Attending Clinician EULOGIO LEMON Attending Clinician Unavailable Kvng ACNEulogio Pinzon Attending Clinician Britton King Attending Clinician Nurse, [facility] Attending Clinician Unavailable BRITTON NEVILLE Attending Clinician Unavailable ALCIDES SCHULZ Attending Clinician Unavailable Alcides Schulz MD Attending Clinician EDUARD BOONE Attending Clinician Unavailable KEVIN STEARNS Attending Clinician Unavailable RACHELL LOPEZ Attending Clinician Unavailable GERMAN KHALIL Attending Clinician Unavailable Ebrahigolden BRUSHER MACHINEGerman Pinzon Attending Clinician Unknown, Attending Attending Clinician Unavailable BRENNEN MADERA Attending Clinician Unavailable BRENNEN MADERA Attending Clinician Unavailable AMY ALCALA Attending Clinician Unavailable Amy Alcala MD Attending Clinician 2, Ad[facility] Attending Clinician Unavailable BENSON ARAGON Attending Clinician Unavailable Alysia Perales MD Attending Clinician ALYSIA PERALES Attending Clinician Unavailable Ralph RON, Erik Ratliff Attending Clinician [phone] LUIS ALBERTO ESTRADA Attending Clinician Unavailable Luis Alberto Estrada MD Attending Clinician Kelsey Hewitt PA-C Attending Clinician Darnell STRANGE Maury Michael Attending Clinician ATIF ROSEN Admitting Clinician Unavailable RADAMES HARMAN Admitting Clinician Unavailable Radames Harman MD Admitting Clinician DONNIE YUAN Admitting Clinician Unavailable ENIO PATEL Admitting Clinician Unavailable Nicole HUSSEIN Admitting Clinician Unavailable Nell Almonte MD Admitting Clinician [phone] NELL ALMONTE Admitting Clinician Unavailable FOX BREEN JR Admitting Clinician Unavailable Lan Maza MD, Victor J Admitting Clinician CATALINA ROSALES Admitting Clinician Unavailable LARRY SNOW Admitting Clinician Unavailable LUIS ALBERTO ESTRADA Admitting Clinician Unavailable Payers Payer Name Policy Type Policy Number Effective Date Expiration Date Antonio moore CIGNA HMO POS [id number] 2021 OPEN ACCESS 00:00:00 CIGNA II [id number] 2020 00:00:00 CIGNA 53 [id number] 2022 [facility] 00:00:00 - [facility] [id number] 2018 - OUT OF STATE 00:00:00 Problems Condition Condition Condition Status Onset Resolution Last Treating Co mments Source Name Details Category Date Date Treatment Clinician Date Hypotensio Hypotensio Disease Active 2022-05 U nivers n, n, 0-10 ity of [place]spec[place] hypotensio hypotensio Br anch n type n type Obstructio Obstructio Disease Recurre Mu w: Univers n of n of nce 824 Formattin ity of trachea trachea 00:00: g of this [place] 00 note might be Anderso different n from the Cancer original. 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 11-02 00:00: Hospita 00 l Mental Mental Disease Active Methodi disorder disorder [...] 10-30 ankle ankle 00:00: Hospita 00 l Steroid-in Steroid-in Disease Active M ethodi duced duced 12-14 st diabetes diabetes 00:00: Hospit a mellitus mellitus 00 l Fibroids Fibroids Disease Active 2016-05 Unive rs 1- ity of 00:00: [place] [facility] Post-opera Post-opera Disease Active 2016-05 U nivers tive state tive state -20 it y of 00:00: Medical Branch Abnormal Abnormal Disease Active 2016-05 Overview: Me thodi uterine uterine 06-[address] bleeding bleeding 00:00: g of this [facility] 00 note l might be different from the original. Formattin g of this note might be different from the original. Added automatic ally from request for surgery [id number] ed automatic ally from request for surgery [id number] matting of this note might be different from the original. Added automatic ally from request for surgery [id number] Uterine Uterine Disease Active Methodi leiomyoma leiomyoma 02-02 00:00: Hospita 00 l Obstructiv Obstructiv Disease Active M ethodi e sleep e sleep 10-13 st apnea apnea 00:00: Hospita 00 l Prediabete Prediabete Disease Active M ethodi s s 10-13 00:00: Hospita 00 l Erythrocyt Erythrocyt Disease Active U nivers osis osis 09-28 ity of 00:00: [place] [facility] Vitamin D Vitamin D Disease Active Met hodi deficiency deficiency 09-28 00:00: Hospita 00 l Multiple Multiple Disease Active Unive rs drug drug 09-01 ity of allergies allergies [place] Idiopathic Idiopathic Disease Active U nivers gout, gout, 09-01 ity of unspecifie [place]specifie [place] Medical chronicity chronicity Br anch , , unspecifie unspecifie d site d site Smoker Smoker Disease Active Methodi 09-01 st 00:00: Hospita 00 l Hematuria Hematuria Disease Active Met hodi 09-01 00:00: Hospita 00 l Polyarthra Polyarthra Disease Active M ethodi lgia lgia 09-01 00:00: Hospita 00 l Enlarged Enlarged Disease Active Overview: Un dequan uterus uterus 16 Formattin ity of 00:00: g of this note Medical might be Branch different from [...] vers rubella rubella 09-07 ity of 00:00: [place] [id number] Medical Branch Encounter Encounter Disease Active Overview: Univers for for 09-04 Formattin ity of routine routine 00:00: g of this [place] gynecologi gynecologi 00 note Me dical abdirizak abdirizak might be Branch examinatio examinatio different n n from the original. ICD10 Diagnosis Term Special Delivery Clerk Utility Need for Need for Disease Active Unive rs prophylact prophylact 09-04 it y of ic ic 00:00: [place] vaccinatio vaccinatio 00 Me dical n with n with Branch combined combined diphtheria diphtheria -tetanus-p -tetanus-p ertussis ertussis (DTP) (DTP) vaccine vaccine Irregular Irregular Disease Active Uni vers menstrual menstrual 09-04 ity of cycle cycle 00:00: [address] Depression Depression Disease Active M ethodi 09-04 st 00:00: Hospita 00 l Dermatophy Dermatophy Disease Active Overview : Methodi tosis tosis 09-[address] 00:00: g of this Hospita 00 note l might be different from the original. Formattin g of this note might be different from the original. ICD10 Diagnosis Term Special Delivery Clerk UtilityIC D10 Diagnosis Term Special Delivery Clerk UtilityFo rmatting of this note might be different from the original. ICD10 Diagnosis Term Special Delivery Clerk Utility Generalize Generalize Disease Active M ethodi d anxiety d anxiety 09-04 st disorder disorder 00:00: Hospit a 00 l [id number] Adult BMI Problem Com mon 37.0-37.9 Spirit kg/sq m - [facility] [id number] MGUS Problem Common (monoclona Spirit l - [facility]I gammopathy St of unknown kes significan Medica l ce) Center [id number] Hypothyroi Problem Com mon dism, Spirit unspecifie - [facility] d type [facility] Iron Iron Problem Common deficiency deficiency Sp maryann anemia due anemia due - CHI to chronic to chronic St blood loss blood loss [facility] [id number] Iron Problem Common deficiency Spirit anemia, - CHI unspecifie St d iron [facility] deficiency Medica l anemia Center type [id number] Tracheosto Problem Co mmon my in Spirit place - [facility] [id number] Morbid Problem Commo n 9104 (severe) Spirit obesity - [facility] due to [facility] [id number] Body mass Problem Com mon index Spirit (BMI) - CHI 40.0-44.9, [facility] [id number] Mixed Problem Common hyperlipid Spirit emia - [facility] [id number] Tobacco Problem Commo n use Spirit disorder - [facility] [id number] Extrinsic Problem Com mon asthma, Spirit unspecifie - CHI d asthma St severity, kes unspecifie Medica l d whether Center complicate d, unspecifie d whether persistent [id number] Anxiety Problem Common disorder Spirit due to - [facility] multiple [facility] [id number] Gout Problem Common involving Spirit toe, - [facility] unspecifie St [facility] cause[facility] Center chronicity , unspecifie d laterality [id number] Gluten Problem Common intoleranc Spirit e - [facility] R20.2 - R20.2 - Diagnosis Active 2021-11-21 Memoria PARESTHESI PARESTHESI 10:40:00 l A OF SKIN A OF SKIN Herm sujatha G62.9 - G62.9 - POLY POLY Active VERONICA Newton Asthma Asthma Problem Active 2023-03-26 Keanu tony (disorder) (disorder) 22:32:57 l Active Carlos Problem 03/26/2023 [facility] Golden Dean [facility] [place] [facility] Backache Backache Problem Active 2023-03-26 Memoria (finding) (finding) 22:32:57 l Active Carlos Problem 03/26/2023 Aiden Castaneda Golden Dean [facility] [place] [facility] Cramp in Cramp in Problem Active 2023-03-26 Memoria lower limb lower limb 22:32:57 l (finding) (finding) Herm sujatha Active Problem 03/26/2023 Aiden Castaneda Golden Dean [facility] [place] [facility] Dyslipidem Dyslipide Problem Active 2023-03-26 Memoria ia vero 22:32:57 l associated associated He rmann with type with type II II diabetes diabetes mellitus mellitus (disorder) (disorder) Active Problem 03/26/2023 [facility] Finding of Finding Problem Active 2023-03-26 Memoria body mass of body 22:32:57 l index mass index Rodolfo n (finding) (finding) Active Problem 03/26/2023 [facility] Hyperglyce Hyperglyc Problem Active 2023-03-26 Memoria vero due to emia due 22:32:57 l type 2 to type 2 [place] diabetes diabetes mellitus mellitus (disorder) (disorder) Active Problem 03/26/2023 [facility] Malignant Malignant Problem Active 2023-03-26 Memoria tumor of tumor of 22:32:57 l esophagus esophagus Herm sujatha (disorder) (disorder) Active Problem 03/26/2023 [facility] [place] Thyroid Thyroid Problem Active 2023-03-26 Me moria lump lump 22:32:57 l (disorder) (disorder) He rmann Active Problem 03/26/2023 [facility] [place] 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 l 22:32:57 l (disorder) gammopathy He rmann (disorder) Active Problem 03/26/2023 [facility] Morbid Morbid Problem Active 2023-03-26 Keanu tony obesity obesity 22:32:57 l (disorder) (disorder) He rmann Active Problem 03/26/2023 [facility] Pain in Pain in Problem Active 2023-03-26 Me moria spine spine 22:32:57 l (finding) (finding) Herm sujatha Active Problem 03/26/2023 [facility] Paresthesi Paresthes Problem Active 2023-03-26 Memoria a ia 22:32:57 l (finding) (finding) Herm sujatha Active Problem 03/26/2023 [facility] Peripheral Periphera Problem Active 2023-03-26 Memoria nerve l nerve 22:32:57 l disease disease Carlos (disorder) (disorder) Active Problem 03/26/2023 VERONICA Quiros M [facility] [place] [facility] Spinal Spinal Problem Active 2023-03-26 Keanu tony stenosis stenosis 22:32:57 l in in [place] cervical cervical region region (disorder) (disorder) Active Problem 03/26/2023 VERONICA Quiros M [facility] [place] Tendinitis Tendiniti Problem Active 2023-03-26 Memoria of elbow s of elbow 22:32:57 l or forearm or forearm He rmann (disorder) (disorder) Active Problem 03/26/2023 VERONICA Quiros M [facility] [place] [facility] Acute on Acute on Disease Active Unive rs chronic chronic ity of [place] respirator respirator MD y failure y failure [facility] Stridor Stridor Disease Active [facility] [place] MD [facility] Agitation Agitation Disease Active Uni vers [facility] [place] MD [facility] Electrolyt Electrolyt Disease Active U nivers e and e and ity of fluid fluid [place] disorders disorders not not Anderso elsewhere elsewhere n classified classified [facility] Allergies, Adverse Reactions, Alerts Allergy [...] 00:00: n 00 ACETYLCY DRUG Active Other 3-0 MD GIO INGREDI 2-15 Anderso 00:00: n 00 ACETYLCY DRUG Active Other 3-0 MD STEINE INGREDI 2-15 Anderso 00:00: n 00 ACETYLCY DRUG Active Other 3-0 MD STEINE INGREDI 2-15 Anderso 00:00: n 00 ACETYLCY DRUG Active Other 3-0 MD BASSEME INGREDI 2-15 Anderso 00:00: n 00 Acetylcy Propensi Active Other (See 0 Aggravate Univers steine ty to Comments) 2-15 d; throat ity of adverse 00:00: feels [place] reaction 00 swollen MD [facility] ETHANOL DRUG Active 2021-0 MD (ETHYL 8-30 Anderso ALCOHOL) 00:00: n [...] adverse 00:00: [place] reaction 00 MD [facility] IODINATE Drug Active High Anaphylaxis 2-0 MD D Class 8-28 Anderso CONTRAST 00:00: [...] n Cancer Center MEROPENE DRUG Active High 2022-0 MD M [...] Anderso 00:00: n 00 Meropene Drug Active 2-0 Unable to Unive rs m Allergy 824 move out ity of 00:00: of bed [place] 00 MD [facility] Dexameth Propensi Active Swelling 2021-0 Throat Univ ers asone ty to 8-20 swelling ity of adverse 00:00: / stridor [place] reaction 00 Medical s Branch Meropene Propensi Active Cough 2021-0 Balance Unive rs m ty to 8-20 issues / ity of adverse 00:00: migraine [place] reaction 00 Medical s Branch DEXAMETH DRUG Active Swelling 2-0 Univer s ASONE INGREDI 8-20 ity of 00:00: [place] 00 Medical Branch MEROPENE DRUG Active COUGH 2-0 Univers M INGREDI 8-20 ity of 00:00: [place] 00 Medical Branch DEXAMETH DRUG Active Swelling 2-0 MD ASONE INGREDI 8-17 Anderso 00:00: n [...] swelling ity of 00:00: [place] 00 MD [facility] CEPHALEX DRUG Active Swelling 2022-0 MD IN [...] card Cancer Center IODINE DRUG Active Anaphylaxis 2022-0 Unive rs INGREDI 7-03 ity of 00:00: [place] 00 Medical Branch SILICONE DRUG Active ITCHING 2022-0 Univers INGREDI 7-03 ity of 00:00: [place] 00 Medical Branch Silicone Propensi Active Itching 2022-0 Unive rs ty to 7-03 ity of adverse 00:00: [place] reaction 00 Medical s Branch Iodine Propensi Active Anaphylaxis 2022-0 Uni vers ty to 7-03 ity of adverse 00:00: [place] reaction 00 Medical s Branch Silicone Propensi Active Itching 2022-0 Unive rs ty to 7-03 ity of adverse 00:00: [place] reaction 00 [...] n 00 SODIUM DRUG Active High Sob 2021-0 MD LAURYL INGREDI 10-30 Anderso SULFATE 00:00: n 00 SILICONE DRUG Active Itching 2021-0 MD INGREDI 10-30 Anderso 00:00: n 00 SODIUM DRUG Active High Sob 2-0 MD LAURYL INGREDI 10-30 Anderso SULFATE 00:00: n 00 SILICONE DRUG Active Itching 2-0 MD INGREDI 10-30 Anderso 00:00: n 00 SODIUM DRUG Active High Sob 2021-0 MD LAURYL INGREDI 10-30 Anderso SULFATE 00:00: n 00 SILICONE DRUG Active Itching 2021-0 MD INGREDI 10-30 Anderso 00:00: n 00 SODIUM DRUG Active High Sob 2021-0 MD LAURYL INGREDI 10-30 Anderso SULFATE 00:00: n 00 SILICONE DRUG Active Itching 2021-0 MD INGREDI 10-30 Anderso 00:00: n 00 Shellfis Propensi Active Swelling 2021-0 Meth chayo h ty to 10-30 st Containi adverse 00:00: Hospita ng reaction 00 l Products s to drug Shellfis Drug Active Swelling 2021-0 Univer s h Allergy 10-30 ity of Containi 00:00: [place] ng 00 Products [facility] Silicone Propensi Active Swelling 2021-0 Univ ers ty to 10-30 ity of adverse 00:00: [place] reaction 00 MD s [facility] Sodium Drug Active Shortness Of Other Univ ers Lauryl Allergy Breath 10-30 reaction( ity of Sulfate 00:00: s): [place] 00 shortness MD of breath [facility] Silicone Propensi Active Swelling 2021-0 Meth chayo ty to 10-30 st adverse 00:00: Hospita reaction 00 l s to drug Sodium Propensi Active Shortness Of 0 Me thodi Lauryl ty to Breath 10-30 st Sulfate adverse 00:00: Hospita reaction 00 l s to drug Amoxicil Propensi Active GI Method i tera ty to Intolerance 5 st adverse 00:00: Hospita reaction 00 l s to drug Amoxicil Propensi Active Other (See Coughing Methodi tera-Pot ty to Comments) 5-[address] Clavulan adverse 00:00: Hospita ate reaction 00 l s to drug Iodine Propensi Active Rash 2021-0 Methodi ty to 5-25 st adverse 00:00: Hospita reaction 00 l s to drug Latex Propensi Active Rash 2021-0 Methodi ty to 5-25 st adverse 00:00: Hospita reaction 00 l s to drug Sulfa Propensi Active GI 2021-0 Methodi (Sulfona ty to Intolerance 10-21 st mide adverse 00:00: Hospita Antibiot reaction 00 l ics) s to drug Egg Propensi Active Swelling 2020-0 Method i ty to 10-31 st adverse 00:00: Hospita reaction 00 l s to drug EGG DRUG Active Swelling 2020-0 MD INGREDI 10-31 Anderso 00:00: n 00 EGG DRUG Active Swelling 2020-0 Univers INGREDI 10-31 ity of 00:00: [place] 00 Medical Branch Egg Propensi Active Swelling 2020-0 Univer s ty to 10-31 ity of adverse 00:00: [place] reaction 00 MD antonio Raza n [facility] AMOXICIL DRUG Active High Rash 2019-0 MD [...] Active High Rash 2019-0 MD TERA INGREDI 928 Anderso 00:00: n 00 AMOXICIL DRUG Active [...] ity of 00:00: s): GI [place] 00 Intolervick conway [facility] Metformi Propensi Active Altered 2018-0 Severe Metho di n (Bulk) ty to Mental 4-[address] adverse Status 00:00: n, Hospita reaction 00 delusions l s to . See drug nurse note from 09/10/18 urgent care visit.Sev ere aggressio n, delusions . See nurse note from 09/10/18 urgent care visit. METFORMI DRUG Active High Other 2019-0 MD [...] n 00 METFORMI DRUG Active High Other-Cmnt 2018-0 Univ ers N (BULK) 4-14 ity of 00:00: [place] 00 Medical Branch AMPICILL DRUG Active Med Anxiety 2018-0 Univers IN 4-14 ity of (BULK) 00:00: [place] 00 Medical Branch Ampicill Propensi Active Anxiety 2018-0 Unive rs in ty to 09-10 ity of (Bulk) adverse 00:00: [place] reaction 00 Medical s Branch Metformi Propensi Active Other (See Other Un dequan n (Bulk) ty to Comments) 09-10 reaction( it y of adverse 00:00: s): [place] reaction 00 Altered s Mental Anderso StatusSev n ere Cancer aggressio Center n, delusions . See nurse note from 09/10/18 urgent care visit.Sev ere aggressio n, delusions . See nurse note from 09/10/18 urgent care visit.Sev ere aggressio n, delusions . See nurse note from 09/10/18 urgent care visit. Ethyl Propensi Active GI 2016-05 Patient Methodi Alcohol ty to Intolerance 1-[address] adverse 00:00: providers Hospit a reaction 00 to wash l s to hands drug with soap and waterPati ent prefers providers to wash hands with soap and water ETHYL DRUG Active Other 2016-05 MD ALCOHOL INGREDI 06-18 Anderso 00:00: n 00 ETHYL DRUG Active Other-Cmnt 2016-05 Univer s ALCOHOL INGREDI -20 ity of 00:00: [place] 00 Medical Branch Ethyl Propensi Active Other - See 2016-05 Patient Un dequan Alcohol ty to comments 20 prefers ity of adverse 00:00: providers [place] reaction 00 to wash Medical s hands Branch with soap and water Midazola Propensi Active Anxiety 2016-05 Depressio Me thodi m ty to 06-[address] adverse 00:00: on Hospita reaction 00 l s to drug Thimeros Propensi Active Other (See 2017- Me thodi al ty to Comments) 06-11 st adverse 00:00: Hospita reaction 00 l s to drug THIMEROS DRUG Active Other 2017 AL INGREDI -13 Anderso 00:00: n 00 MIDAZOLA DRUG Active Low Anxiety 2017- MD Dey INGREDI -13 Anderso 00:00: n 00 THIMEROS DRUG Active Other 2017- AL INGREDI 13 Anderso 00:00: n 00 MIDAZOLA DRUG Active Low Anxiety 2017 MD Dey INGREDI -13 Anderso 00:00: n 00 THIMEROS DRUG Active Other 2016-05 AL INGREDI 13 Anderso 00:00: n 00 MIDAZOLA DRUG Active Low Anxiety 2017 MD Dey INGREDI -13 Anderso 00:00: n 00 THIMEROS DRUG Active Other 2017 AL INGREDI 13 Anderso 00:00: n 00 MIDAZOLA DRUG Active Low Anxiety 2017 MD Dey INGREDI -13 Anderso 00:00: n 00 THIMEROS DRUG Active Other 2017 AL INGREDI 13 Anderso 00:00: n 00 THIMEROS DRUG Active Other 2017 AL INGREDI 13 Anderso 00:00: n 00 MIDAZOLA DRUG Active Low Anxiety 2017- MD Dey INGREDI -13 Anderso 00:00: n 00 THIMEROS DRUG Active Other 2017- AL INGREDI -13 Anderso 00:00: n 00 MIDAZOLA DRUG Active Low Anxiety 2017 MD Dey INGREDI -13 Anderso 00:00: n 00 MIDAZOLA DRUG Active Low Anxiety 2017 MD Dey INGREDI -13 Anderso 00:00: n 00 THIMEROS DRUG Active Other 2016-05 AL INGREDI -13 Anderso 00:00: n 00 MIDAZOLA DRUG Active Low Anxiety 2017 MD Dey INGREDI -13 Anderso 00:00: n 00 THIMEROS DRUG Active Other 2017- MD ALLEN INGREDI 13 Anderso 00:00: n 00 MIDAZOLA [...] 00 THIMEROS DRUG Active Other 2017- MD ALLEN INGREDI 1-13 Anderso 00:00: n 00 MIDAZOLA DRUG Active Low Anxiety 2017- MD Dey INGREDI 1-13 Anderso 00:00: n 00 THIMEROS DRUG Active Other 2017- AL INGREDI 1-13 Anderso 00:00: n 00 MIDAZOLA DRUG Active Low Anxiety 2017- MD Dey INGREDI 1-13 Anderso 00:00: n 00 THIMEROS DRUG Active Other 2017- MD ALLEN INGREDI 1-13 Anderso 00:00: n 00 MIDAZOLA DRUG Active Low Anxiety 2017- MD Dey INGREDI 1-13 Anderso 00:00: n 00 THIMEROS DRUG Active Other 2017- AL INGREDI 1-13 Anderso 00:00: n 00 MIDAZOLA DRUG Active Low Anxiety 2017- MD Dey INGREDI 1-13 Anderso 00:00: n 00 THIMEROS DRUG Active Other 2017- MD ALLEN INGREDI 1-13 Anderso 00:00: n 00 THIMEROS DRUG Active Other 2017- MD ALLEN INGREDI 1-13 Anderso 00:00: n 00 MIDAZOLA [...] 00 THIMEROS DRUG Active Other 2017- MD ALLEN INGREDI 1-13 Anderso 00:00: n 00 MIDAZOLA [...] 00 THIMEROS DRUG Active Other 2017- MD ALLEN INGREDI 1-13 Anderso 00:00: n 00 MIDAZOLA [...] 00 THIMEROS DRUG Active Other 2017- MD ALLEN INGREDI 1-13 Anderso 00:00: n 00 MIDAZOLA [...] 00 THIMEROS DRUG Active Other 2017- MD ALLEN INGREDI 1-13 Anderso 00:00: n 00 MIDAZOLA [...] 00 THIMEROS DRUG Active Other 2017- MD ALLEN INGREDI 1-13 Anderso 00:00: n 00 MIDAZOLA DRUG Active Low Anxiety 2017- MD Dey INGREDI 1-13 Anderso 00:00: n 00 THIMEROS DRUG Active Other 2017- AL INGREDI 1-13 Anderso 00:00: n 00 MIDAZOLA DRUG Active Low Anxiety 2017- MD Dey INGREDI 1-13 Anderso 00:00: n 00 THIMEROS DRUG Active Other 2017- MD ALLEN INGREDI 1-13 Anderso 00:00: n 00 THIMEROS [...] 00 THIMEROS DRUG Active Other 2017- MD ALLEN INGREDI 1-13 Anderso 00:00: n 00 MIDAZOLA [...] 00 THIMEROS DRUG Active Other 2017- MD ALLEN INGREDI 1-13 Anderso 00:00: n 00 MIDAZOLA DRUG Active Low Anxiety 2017- MD Dey INGREDI 1-13 Anderso 00:00: n 00 THIMEROS DRUG Active Other 2017- MD ALLEN INGREDI 1-13 Anderso 00:00: n 00 THIMEROS DRUG Active Other 2017- MD ALLEN INGREDI 13 Anderso 00:00: n 00 MIDAZOLA DRUG Active Low Anxiety 2016-05 MD Dey INGREDI 13 Anderso 00:00: n 00 THIMEROS DRUG Active Other 2016-05 MD ALLEN INGREDI 13 Anderso 00:00: n 00 MIDAZOLA DRUG Active Low Anxiety 2016-05 MD Dey INGREDI 13 Anderso 00:00: n 00 MIDAZOLA DRUG Active Low Anxiety 2016-05 MD Dey INGREDI 13 Anderso 00:00: n 00 THIMEROS DRUG Active Other 2016-05 MD ALLEN INGREDI 13 Anderso 00:00: n 00 MIDAZOLA DRUG Active Low Anxiety 2016-05 MD Dey INGREDI 13 Anderso 00:00: n 00 THIMEROS DRUG Active Other 2016-05 MD ALLEN INGREDI 06-11 Anderso 00:00: n 00 MIDAZOLA DRUG Active Low Anxiety 2016-05 MD Dey INGREDI 06-11 Anderso 00:00: n 00 THIMEROS DRUG Active Other 2016-05 MD ALLEN INGREDI 13 Anderso 00:00: n 00 MIDAZOLA DRUG Active Low Anxiety 2016-05 MD Dey INGREDI 13 Anderso 00:00: n 00 THIMEROS DRUG Active Other 2016-05 MD ALLEN INGREDI 06-11 Anderso 00:00: n 00 MIDAZOLA DRUG Active [...] 00 Medical s Branch Midazola Propensi Active Other (See 2016-05 Other Un dequan m ty to Comments) 06-11 reaction( ity of adverse 00:00: s): [place] reaction 00 Altered MD s Mental Anderso StatusDep n ressionDe Cancer pressionD Center epression Thimeros Propensi Active Other (See 2016-05 Other Un dequan al ty to Comments) 06-11 reaction( ity of adverse 00:00: s): [place] reaction 00 Unknown - MD s See Anderso comments n Cancer Center Lidocain Propensi Active Swelling 2016-05 Burning, Me thodi e ty to 06-[address] adverse 00:00: nBurning, Hospit a reaction 00 irritatio l s to n drug LIDOCAIN DRUG Active High Other 2016-05 MD [...] Branch Lidocain Propensi Active Swelling 2016-05 Burning, Un dequan e ty to 06-04 irritatio ity of adverse 00:00: Luis Li reaction 00 irritamarge RON s Luz Marina Li irritatio n n Cancer [place] ROSUVAST DRUG Active Other 2017-0 MD ATIN INGREDI 5-17 Anderso 00:00: n 00 ROSUVAST DRUG Active Other 2017-0 MD ATIN INGREDI -17 Anderso 00:00: n 00 ROSUVAST DRUG Active [...] 00:00: n 00 ROSUVAST DRUG Active Other 2017- MD ATIN INGREDI 5-17 Anderso 00:00: n 00 ROSUVAST DRUG Active Other 2016-0 MD ATIN INGREDI -17 Anderso 00:00: n 00 ROSUVAST DRUG Active Other 2017-0 MD ATIN INGREDI -17 Anderso 00:00: n 00 ROSUVAST DRUG Active Other 2016- MD ATIN INGREDI -17 Anderso 00:00: n 00 ROSUVAST DRUG Active Other 2017-0 MD ATIN INGREDI -17 Anderso 00:00: n 00 ROSUVAST DRUG Active Other 2016- MD ATIN INGREDI -17 Anderso 00:00: n 00 ROSUVAST DRUG Active Other-Cmnt Univ ers ATIN INGREDI 17 ity of 00:00: [place] [address] [place] [address] Branch Rosuvast Propensi Active Other (See Vague Un dequan atin ty to Comments) 10-13 intoleran ity of adverse 00:00: ce [place] reaction 00 MD [facility] Adhesive Propensi Active Rash Method i ty [...] Metallic Meth chayo ne ty to Intolerance 4-[address] adverse 00:00: [facility]lic [facility]osp[facility] reaction 00 taste l s to drug Dexlanso Propensi Active Diarrhea Meth chayo prazole ty to 4-14 st adverse 00:00: Hospita reaction 00 l s to drug Fluticas Propensi Active Shortness Of Methodi one ty to Breath 4-14 st adverse 00:00: Hospita reaction 00 l s to drug LATEX DRUG Active High Rash 2017-0 MD [...] 00:00: n 00 TRIAMTER DRUG Active Swelling 2017- MD [...] DE-FORMO 4-14 Anderso TEROL 00:00: n 00 Macrolid Propensi Active GI 2017- Method i e ty to Intolerance 14 st Antibiot adverse 00:00: Hospita ics reaction 00 l s to drug FLUTICAS DRUG Active High Sob 2017- MD [...] n 00 TIOTROPI DRUG Active High Sob 2017- MD UM INGREDI 4-14 Anderso BROMIDE 00:00: n 00 CETIRIZI DRUG Active Other 2017- MD NE INGREDI 4-14 Anderso 00:00: n 00 DEXLANSO DRUG Active Diarrhea 2017- MD PRAZOLE INGREDI 4-14 Anderso 00:00: n 00 MACROLID Drug Active Nausea 2017- MD E Class 4-14 Anderso ANTIBIOT 00:00: n ICS 00 CETIRIZI DRUG Active Other 2017- MD NE INGREDI 4-14 Anderso 00:00: n 00 TRIAMTER DRUG Active Swelling 2017- MD [...] n 00 TIOTROPI DRUG Active High Sob 2017- MD UM INGREDI 4-14 Anderso BROMIDE 00:00: n 00 CETIRIZI DRUG Active Other 2017- MD NE INGREDI 4-14 Anderso 00:00: n 00 TIOTROPI DRUG Active High Sob 2017- MD UM INGREDI 4-14 Anderso BROMIDE 00:00: n 00 DEXLANSO DRUG Active Diarrhea 2017- MD PRAZOLE INGREDI 4-14 Anderso 00:00: n 00 MACROLID Drug Active Nausea 2017- MD E Class 4-14 Anderso ANTIBIOT 00:00: n ICS 00 TRIAMTER DRUG Active Swelling 2016- MD ELENA-HYDR 4-14 [place] 00:00: n [...] INGREDI 4-14 Anderso BROMIDE 00:00: n 00 Tiotropi Propensi Active Shortness Of Methodi um ty to Breath 4-14 [facility] [place] adverse 00:00: Hospita reaction 00 l s to drug CETIRIZI DRUG Active Other 2017-0 MD NE [...] 4-14 Anderso [place] 00:00: n HIAZID 00 Triamter Propensi Active Swelling 2017-0 Meth chayo elena-Hydr ty to 4-14 st [place] adverse 00:00: Hospita hiazid reaction 00 l s to drug ADHESIVE Drug Active Low Rash 2017-0 MD [...] ONE INGREDI 4-14 Anderso 00:00: n 00 Zileuton Propensi Active Anxiety 2017-0 Metho di ty to 4-14 st adverse 00:00: Hospita reaction 00 l s to drug LATEX DRUG Active High Rash 2017-0 MD [...] TEROL 00:00: n 00 ADHESIVE Drug Active Rash 2017-0 Univers Class 4-14 ity of 00:00: [place] 00 Medical Branch FLUTICAS DRUG Active High Sob 2017-0 [...] Univers ONE 4-14 ity of PROPION- 00:00: [place] SALMETER 00 Medical OL Branch ADHESIVE Drug Active Low Rash 2017-0 [...] MD INGREDI 4-14 Anderso 00:00: n 00 BANANA DRUG Active Other-Cmnt 2017-0 Univer s INGREDI 4-14 ity of 00:00: [place] 00 Medical Branch TIOTROPI DRUG Active High Sob 2017-0 MD [...] 00:00: n 00 FLUTICAS DRUG Active Anxiety 2017-0 Univers ONE 4-14 ity of FUROATE- 00:00: [place] VILANTER 00 Medical OL Branch BUDESONI DRUG Active High Sob [...] 00:00: n 00 MACROLID Drug Active Nausea 2017- MD E Class 4-14 Anderso ANTIBIOT 00:00: n ICS 00 CETIRIZI DRUG Active Other-Cmnt Univ ers NE INGREDI 4-14 ity of 00:00: [place] [address] [place] [address] TRIAMTER DRUG Active Swelling 2017- MD ELENA-HYDR [...] n 00 DEXLANSO DRUG Active Diarrhea 2017-0 Univer s PRAZOLE INGREDI 4-14 ity of 00:00: [address] TIOTROPI DRUG Active High Sob 2017-0 [...] n VILANTER 00 OL FLUTICAS DRUG Active SOB 2017-0 Univers ONE INGREDI 4-14 ity of PROPIONA 00:00: [place] TE [address] [place] [address] Branch ZILEUTON DRUG Active Low Anxiety 2017-0 [...] 00:00: n HIAZID 00 LATEX DRUG Active Rash 2017-0 Univers INGREDI 4-14 ity of 00:00: [place] 00 [facility] ADHESIVE Drug Active Low Rash 2017-0 MD [...] ANTIBIOT 00:00: [place] ICS 00 Medical Branch TIOTROPI DRUG Active High Sob 2017-0 MD [...] MD INGREDI 4-14 Anderso 00:00: n 00 BECLOMET DRUG Active SOB 2017-0 Univers HASONE INGREDI 4-14 ity of DIPROPIO 00:00: [address] BUDESONI DRUG Active High Sob 2017-0 MD [...] UM INGREDI 4-14 ity of BROMIDE 00:00: [address] DEXLANSO DRUG Active Diarrhea 2017-0 MD PRAZOLE [...] Univers DE-FORMO 4-14 ity of TEROL 00:00: [place] 00 Medical Branch LATEX DRUG Active High [...] HIAZID 00 TRIAMTER DRUG Active Swelling 2017-0 Univer s ELENA-HYDR 4-14 ity of [place] 00:00: [place] HIAZID 00 Medical Branch ADHESIVE Drug Active Low [...] Anderso 00:00: n 00 ZILEUTON DRUG Active Anxiety 2017-0 Univers INGREDI 4-14 ity of 00:00: [place] 00 Medical Branch DEXLANSO DRUG Active Diarrhea 2017-0 MD PRAZOLE [...] 4-14 Anderso [place] 00:00: n HIAZID 00 Budesoni Propensi Active Shortness of 2017-0 Univers de-Formo ty to Breath 4-14 ity of terol adverse 00:00: [place] reaction 00 Medical s Branch DEXLANSO DRUG Active Diarrhea 2017-0 MD PRAZOLE [...] INGREDI 4-14 Anderso BROMIDE 00:00: n 00 Fluticas Propensi Active Shortness of 2017-0 Univers one ty to Breath 4-14 ity of Propion- adverse 00:00: [place] Salmeter reaction 00 Medica l ol s Branch CETIRIZI DRUG Active Other 2017-0 [...] Anderso FUROATE- 00:00: n VILANTER 00 OL Adhesive Propensi Active Rash 2017-0 Univer s ty to 4-14 ity of adverse 00:00: [place] reaction 00 Medical s Branch ZILEUTON DRUG Active Low Anxiety [...] 4-14 Anderso ANTIBIOT 00:00: n ICS 00 Macrolid Propensi Active Nausea 2017-0 Univer s e ty to and/or 4-14 ity of Antibiot adverse Vomiting 00:00: [place] ics reaction 00 Medical s Branch TRIAMTER DRUG Active Swelling 2017-0 MD [...] 4-14 Anderso [place] 00:00: n HIAZID 00 Dexlanso Propensi Active Diarrhea 2017-0 Univ ers prazole ty to 4-14 ity of adverse 00:00: [place] reaction 00 Medical s Branch ADHESIVE Drug Active Low Rash 2017-0 [...] INGREDI 4-14 Anderso BROMIDE 00:00: n 00 Fluticas Propensi Active Shortness of 2017-0 Univers one ty to Breath 4-14 ity of Propiona adverse 00:00: [place] te reaction 00 Medical s Branch CETIRIZI DRUG [...] MD INGREDI 4-14 Anderso 00:00: n 00 Latex Propensi Active Rash 2017-0 Univers ty to 4-14 ity of adverse 00:00: [place] reaction 00 Medical s Branch BUDESONI DRUG Active High Sob 2017-0 [...] NE INGREDI 4-14 Anderso 00:00: n 00 Beclomet Propensi Active Shortness of 2017-0 Univers hasone ty to Breath -14 ity of Dipropio adverse 00:00: [place] kala reaction Medical s Branch DEXLANSO DRUG Active Diarrhea 2017-0 MD PRAZOLE [...] MD INGREDI 4-14 Anderso 00:00: n 00 Budesoni Propensi Active Shortness of 2017-0 Univers de-Formo ty to Breath 4-14 ity of terol adverse 00:00: [place] reaction 00 Medical s Branch MACROLID Drug Active Nausea 2017-0 MD E [...] Anderso FUROATE- 00:00: n VILANTER 00 OL Triamter Propensi Active Swelling 2016-0 Univ ers elena-Hydr ty to 4-14 ity of ochlorot adverse 00:00: [place] hiazid reaction 00 Medical s Branch ZILEUTON DRUG Active Low Anxiety [...] INGREDI 4-14 Anderso BROMIDE 00:00: n 00 Fluticas Propensi Active Anxiety 2017-0 Unive rs one ty to 4-14 ity of Furoate- adverse 00:00: [place] Vilanter reaction 00 MD ol s [facility] CETIRIZI DRUG Active Other 2017-0 MD NE [...] 00:00: n 00 DEXLANSO DRUG Active Diarrhea 2017- MD PRAZOLE [...] 00:00: n 00 Adhesive Propensi Active Rash 2017 Univer s ty to 4-14 ity of adverse 00:00: [place] reaction 00 MD antonio [facility] Banana Propensi Active Other (See Other Univ ers ty to Comments) 414 reaction( ity of adverse 00:00: s): GI [place] reaction 00 Intoleran MD alvarez ceAbdomin Luz Marina al n painAbdom Cancer inal Center painAbdom inal pain Budesoni Drug Active Shortness Of Un dequan de-Formo Allergy Breath 414 ity of terol 00:00: [place] 00 MD Luz Marina card [facility] Cetirizi Propensi Active Other (See Other Un dequan ne ty to Comments) 4-14 reaction( ity of adverse 00:00: s): GI [place] reaction 00 Intoleran MD alvarez ceMetalelder card tasteMeta Cancer [facility] Center tasteMeta [facility] taste Dexlanso Drug Active Diarrhea Univer s prazole Allergy 4-14 ity of 00:00: [place] 00 MD Luz Marina card [facility] Fluticas Drug Active Shortness Of Un dequan one Allergy Breath 4-14 ity of 00:00: [place] 00 MD Luz Marina card [facility] Fluticas Propensi Active Anxiety Unive rs one ty to 4-14 ity of Furoate- adverse 00:00: [place] Vilanter reaction 00 MD anam card [facility] Latex Drug Active Rash Univers Allergy 4-14 ity of 00:00: [place] 00 MD Luz Marina card [facility] Macrolid Propensi Active Nausea And Un dequan e ty to Vomiting 4-14 ity of Antibiot adverse 00:00: [place] ics reaction 00 MD antonio card [facility] Tiotropi Propensi Active Shortness Of Univers um ty to Breath 4-14 ity of [place] adverse 00:00: [place] reaction 00 MD antonio card [facility] Triamter Drug Active Swelling Univer s elena-Hydr Allergy 4-14 ity of ochlorot 00:00: [place] hiazid 00 MD Luz Marina card [facility] Zileuton Propensi Active Anxiety Unive rs ty to 4-14 ity of adverse 00:00: [place] reaction 00 MD antonio card [facility] Cefdinir Propensi Active Hallucinatio Methodi ty to ns 4-05 st adverse 00:00: Hospita reaction 00 l s to drug CEFDINIR DRUG Active Hallucinates Un dequan INGREDI 4-05 ity of 00:00: [place] 00 Medical Branch Cefdinir Propensi Active Hallucinatio Univers ty to ns 4-05 ity of adverse 00:00: [place] reaction 00 Medical s Branch Levoflox Propensi Active Altered psychosis Me thodi acin ty to Mental [address] adverse Status 00:00: Hospita reaction 00 l s to drug AMOXICIL DRUG Active Unknown-Cmnt Un dequan TERA-POT 4-08 ity of CLAVULAN 00:00: [place] ATE 00 Medical Branch LEVOFLOX DRUG Active Unknown-Cmnt Un dequan ACIN INGREDI 4-08 ity of 00:00: [place] 00 Medical Branch IODINE Drug Active Unknown-Cmnt Univ ers AND Class 4-08 ity of IODIDE 00:00: [place] CONTAINI 00 Medical NG Branch PRODUCTS SULFA Drug Active Unknown-Cmnt Univ ers (SULFONA Class 4-08 ity of MIDE 00:00: [place] ANTIBIOT 00 Medical ICS) Branch Iodine Propensi Active Unknown - Throat Unive rs And ty to See comments 4-08 closing ity of Iodide adverse 00:00: [place] Containi reaction 00 Medica l ng s Branch Products Iodine Propensi Active Unknown - Throat Unive rs And ty to See comments 4-08 closing ity of Iodide adverse 00:00: [place] Containi reaction 00 Medica l ng s Branch Products Sulfa Propensi Active Unknown - psychosis Un dequan (Sulfona ty to See comments 4-08 it y of mide adverse 00:00: [place] Antibiot reaction 00 Medica l ics) s Branch Levoflox Propensi Active Unknown - psychosis Univers acin ty to See comments 4-08 ity of adverse 00:00: [place] reaction 00 Medical s Branch SULFA Drug Active High MD (SULFONA Class [...] n 00 IODINE Drug Active High Anaphylaxis 2012- MD AND Class 4-08 Anderso IODIDE 00:00: n CONTAINI 00 NG PRODUCTS AMOXICIL DRUG Active High Other 2012- MD [...] n ANTIBIOT 00 ICS) LEVOFLOX DRUG Active 2012-0 MD ACIN INGREDI 4-08 Anderso 00:00: n [...] n ATE 00 SULFA Drug Active High 2012-0 MD (SULFONA Class 4-08 Anderso MIDE 00:00: [...] 4-08 Anderso CLAVULAN 00:00: n ATE 00 Amoxicil Propensi Active Other (See Other Un dequan tera-Pot ty to Comments) 09-04 reaction( ity of Clavulan adverse 00:00: s): [place] ate reaction 00 Unknown - s See Anderso commentsC n [facility] Cancer up Center bloodCoug lena up blood Levoflox Drug Active Other Univers acin Allergy 09-04 reaction( ity of 00:00: s): [place] 00 Altered Mental Anderso Status, n Unknown - Cancer See Center commentsp sychosisp sychosisp sychosis Sulfa Drug Active Other Univers (Sulfona Allergy 09-04 reaction( ity of mide 00:00: s): GI [place] Antibiot 00 Intoleran ics) Luz Marina con[place] Unknown - n See Cancer commentsp Center sychosis Shellfis Shellfis Active Unknown Commo n h h [facility] 463 Drug Active Unknown Common allergy [facility] [id number] Drug Active shortness of Comm on allergy breath [facility] sulfa sulfa Active Memoria drugs drugs l [place] shellfis shellfis Active Memori a h h l [place] Latex Latex Active Memoria l Carlos dexlanso dexlanso Active Memori a prazole prazole l Carlos amoxicil amoxicil Active Memori a tera tera l [place] levoFLOX levoFLOX Active Memori a acin acin l [place] fluticas fluticas Active Memori a one one l Carlos hydrochl hydrochl Active Memori a orothiaz orothiaz l zeke-tria zeke-tria Rodolfo n mterene mterene cefdinir cefdinir Active Memori a l [place] Food Food Active Memoria Sulfites Sulfites l Carlos iodine iodine Active Memoria l [place] budesoni budesoni Active Memori a de-formo de-formo l terol terol [place] Family History Family Member Diagnosis Comments Start Date Stop Date Source Natural father Cancer [facility] Natural father Head and neck Univers ity of cancer [place] Jose [facility] Natural father Lymphoma [facility] MD Garcia [employer] [facility] Natural mother [facility] Maternal grandmother Skin cancer Uni versity of [place] MD Garcia [employer] [facility] Social History Social Habit Start Date Stop Date Quantity Comments Source History SDOH University o f Alcohol Frequency [facility] edical Ruby History SDOH University o f Alcohol Std Drinks [facility] History SDOH University o f Alcohol Binge [facility] History of Tobacco Current Smoker Co mmon Spirit - Use [facility] Sexual orientation Univer sit of [place] MD Garcia [employer] [facility] Exposure to 2022-01-21 2022-01-31 Not sure University of SARS-CoV-2 (event) 00:00:00 17:56:00 [facility] Alcohol intake 2022-01-25 2022-01-25 Current drinker Unive rsity of 00:00:00 00:00:00 of alcohol Luis Garcia [facility] (finding) [facility] Tobacco use and 2022-01-13 2022-01-13 Smokeless Universit y of exposure 00:00:00 00:00:00 tobacco non-user [facility] Cigarettes smoked 2022-01-13 2022-01-13 Univers ity of current (pack per 00:00:00 00:00:00 Luis Porter ) - Reported Cancer Ce nter Cigarette 2022-01-13 2022-01-13 University of pack-years 00:00:00 00:00:00 Luis stein [facility] Tobacco Comment 2021-12-08 2021-12-08 not ready to Univers ity of 00:00:00 00:00:00 quit yet [facility] History of Social 2021-11-03 2021-11-[address] function 00:00:00 00:00:00 Hospital Alcohol Comment 2021-10-21 2021-10-21 Vodka- nine Methodis t 00:00:00 00:00:00 drinks/day Hospital Social History 2020-08-20 2020-08-20 [facility] Kajal santossujatha 16:08:21 16:08:21 [birth year] Universit y of 00:00:00 00:00:00 [place] MD Jose stein [facility] Smoking Status Start Date Stop Date Source Tobacco smoking status 2022-05-18 17:04:58 Ninfa Gonzalez Ex-smoker 2022-01-13 00:00:00 2022-01-13 00:00:00 [facility] [place] [facility] Medications Ordered Filled Start Stop Current Ordering Indication Dosage Frequency Signature Comments Components Source Medication Medication Date Date Medication? Clinician (SIG) Name Name guaiFENesin guaiFENesin 2022-05 No guaiFENesi 200 MG/5ML 200 MG/5ML 0-20 n 200 00:00: MG/5ML 00 guaiFENesin guaiFENesin 2022-05 No guaiFENesi 200 MG/5ML 200 MG/5ML 0-20 n 200 00:00: MG/5ML 00 aztreonam 2022-05- No 1000mg 1,000 mg, Univers (AZACTAM) 0-11 IV ity of 1,000 mg in 23:45: 00:15 [place] NaCl 0.9% 00 :00 ONCE, 1 Medical (NS) 100 mL dose, On Bran ch MINI-BAG 03/08/23 at 1845, Administer over 30 Minutes, 100 [...] 1 dose, On Tue03/08/23 at 1715, STAT Nystatin Nystatin No 4{ml} QID Nystatin 443562 [id number] 8-25 [id number] UNIT/ML UNIT/ML 00:00: UNIT/ML 00 Nystatin Nystatin No 4{ml} QID Nystatin [id number] 8-25 [id number] UNIT/ML UNIT/ML 00:00: UNIT/ML 00 diazePAM 2022- No 2mg Take 1 Univer s (VALIUM) 2 8-15 08-15 tablet (2 ity of mg tablet 15:13: 00:00 mg) by [place] 59 :00 mouth as MD needed. [facility] diazePAM 2022- No 2mg Take 1 Univer s (VALIUM) 2 8-15 08-15 tablet (2 ity of mg tablet 15:13: 00:00 mg) by [place] 59 :00 mouth as MD needed. 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 [facility] Doxycycline Doxycycline No 1{capsu BID Doxycyclin Hyclate 100 Hyclate 100 6-19 le} e Hyclate MG MG 00:00: 100 MG 00 Doxycycline Doxycycline No 1{capsu BID Doxycyclin Hyclate 100 Hyclate 100 6-19 le} e Hyclate MG MG 00:00: 100 MG 00 albuterol Yes 2.5mg Inhale 3 Uni vers (PROVENTIL, 5-09 mL (2.5 ity o f VENTOLIN) 09:34: mg) by Luis 2.5 mg/3 mL 39 nebulizjoel RON (0.083%) on every 6 Jose so nebulizer (six) n solution hours. [facility] albuterol Yes 2.5mg Inhale 3 Uni vers (PROVENTIL, 5-09 mL (2.5 ity o f VENTOLIN) 09:34: mg) by Luis 2.5 mg/3 mL 39 nebulizjoel RON (0.083%) on every 6 Jose so nebulizer (six) n solution hours. [facility] doxycycline 2022- No Squamous 100mg Take 1 Univers (Vibramycin 10-05-24 cell capsule ity of ) 100 MG 00:00: 04:59 carcinoma (100 mg) [place] capsule 00 :00 of by mouth esophagus twice Anderso daily for n 14 days. [facility] doxycycline 2022- No Squamous 100mg Take 1 Univers (Vibramycin 10-05-24 cell capsule ity of ) 100 MG 00:00: 04:59 carcinoma (100 mg) [place] capsule 00 :00 of by mouth esophagus twice Anderso daily for n 14 days. [facility] diphenhydrA 2022- No 25mg Take 25 mg Univers MINE 07-22- by mouth ity of (BENADRYL) 15:41: 00:00 every 8 Sid as 25 mg 43 :00 (eight) MD capsule hours as Anderso needed for n allergies. [facility] diphenhydrA 2022- No 25mg Take 25 mg Univers MINE 07-22-23 by mouth ity of (BENADRYL) 15:41: 00:00 every 8 Sid as 25 mg 43 :00 (eight) MD capsule hours as Anderso needed for n allergies. [facility] Albuterol Albuterol No TID Albuterol Sulfate [...] rmann solution 00 EVERY 8 HOURS predniSONE 2021-05- No Squamous 50mg Take 1 Univers (DELTASONE) 06-13 cell tablet (50 i ty of 50 mg 00:00: 00:00 [place] mg) [place] tablet 00 :00 of mouth 3 MD esophagus (three) Anderso times a n day. Take Cancer 1 tab 13, Center 7, and 1 hour prior to receiving iodine contrast. Take 50 mg Benadryl within one hour of scan. predniSONE 2021-05- No Squamous 50mg Take 1 Univers (DELTASONE) 15 07-22 cell tablet (50 i ty of 50 mg 00:00: 00:00 carcinoma mg) [place] tablet 00 :00 of mouth 3 MD esophagus (three) Anderso times a n day. Take Cancer 1 tab 13, Center 7, and 1 hour prior to receiving iodine contrast. Take 50 mg Benadryl within one hour of scan. acetylcyste 2021-05- No Carcinoma 200mg Take 1 mL Univers ine 06-12 of (200 mg) ity of (MUCOMYST) 00:00: 00:00 esophagus by mouth [place] 200 mg/mL 00 :00 twice MD (20%) daily. Anderso nebulizer n solution [facility] acetylcyste 2021-05- No Carcinoma 200mg Take 1 mL Univers ine 06-1223 of (200 mg) ity of (MUCOMYST) 00:00: 00:00 esophagus by mouth [place] 200 mg/mL 00 :00 twice MD (20%) daily. Anderso nebulizer n solution [facility] acetylcyste 2021-05- No Obstruction 600mg Take 3 mL Univers ine 06-07 11-10 of trachea (600 mg) ity of (MUCOMYST) 00:00: 00:00 by mouth [place] 200 mg/mL 00 :00 twice MD (20%) daily. Anderso nebulizer n solution [facility] acetylcyste 2021-05- No Obstruction 600mg Take 3 mL Univers ine 06-07 11-10 of trachea (600 mg) ity of (MUCOMYST) 00:00: 00:00 [place] mouth [place] 200 mg/mL 00 :00 twice MD (20%) daily. Anderso nebulizer n solution [facility] acetylcyste 2021-05 No Carcinoma 200mg Take 1 mL Univers ine 06-06 11-14 of (200 mg) ity of (MUCOMYST) 00:00: 00:00 esophagus by mouth [place] 200 mg/mL 00 :00 twice MD (20%) daily. Anderso nebulizer n solution [facility] acetylcyste 2021-05 No Carcinoma 200mg Take 1 mL Univers ine 06-06 11-14 of (200 mg) ity of (MUCOMYST) 00:00: 00:00 esophagus by mouth [place] 200 mg/mL 00 :00 twice MD (20%) daily. Anderso nebulizer n solution [facility] predniSONE 2022- No Obstruction Please Univers (DELTASONE) 01-26 of trachea take 20 mg ity of 10 mg 00:00: 00:00 daily x 3 [place] tablet 00 :00 days, then MD 10 mg Anderso daily for n 3 days, Cancer then 10 mg Center every other day for 3 doses predniSONE 2022- No Obstruction Please Univers (DELTASONE) 01-26 of trachea take 20 mg ity of 10 mg 00:00: 00:00 daily x 3 [place] tablet 00 :00 days, then MD 10 mg Anderso daily for n 3 days, Cancer then 10 mg Center every other day for 3 doses doxycycline No 100mg 100 mg, U nivers hyclate 01-19 Oral, ity of (Vibramycin 03:15: 03:14 [place] capsule 00 :00 dose, On Medica l 100 mg [facility] Branch 01/18/22 at 2215, BRIGIDO
Re ason for Anti-Infec tive: Empiric Therapy for Suspected Infection< br>Empiric Therapy Site: Skin / Soft tissue
Duration of therapy: 5 days predniSONE No 50mg 50 mg, Univ ers (DELTASONE) 01-19 Oral, ity of tablet 50 00:15: 00:33 ONCE, [place] mg 00 :00 dose, On Medical Mon Branch 01/18/22 at 1915, BRIGIDO doxycycline No [id number] 100mg Take 1 [facility] hyclate 100 01-18 capsule by i ty of mg capsule 00:00: 04:59 mouth [place] 00 :00 the Medical morning Branch and 1 capsule in the evening. Do all this for 14 days. doxycycline 2021- No [id number] 100mg Take 1 [facility] hyclate 100 01-18- capsule by i ty of mg capsule 00:00: 04:59 [place] :00 the Medical morning Branch and 1 capsule in the evening. Do all this for 14 days. doxycycline 2021-2021- No [id number] 100mg Take 1 [facility] hyclate 100 01-18 [...] :00 twice MD (20%) daily. Anderso nebulizer [facility] acetylcyste 2021- No 200mg Take 200 Univers ine 8-16 11-08 mg by ity of (MUCOMYST) 00:00: 00:00 mouth [place] 200 mg/mL 00 :00 twice MD (20%) daily. Anderso nebulizer [facility] Apply to Un [place] ne 8-10 area(s) as ity of acetonide 14:01: needed. [place] 0.1 % cream [address] [facility] Yes Apply to Un [place]an ne 8-10 area(s) as ity of acetonide 14:01: needed. [place] 0.1 % cream 52 [facility] triamcinolo Yes Apply to Un [place] ne 8-10 area(s) as ity of acetonide 14:01: needed. [place] 0.1 % cream 52 [facility] Yes Apply to Un [place] ne 8-10 area(s) as ity of acetonide 14:01: needed. [place] 0.1 % cream 52 [facility] tricinolo Yes Apply to Un dequan ne [...] cream 52 Medical Branch acetylcyste 2021-0 Yes [id number] 200mg Inhale 1 Univers ine 200 8-10 [id number] mL in the ity o f mg/mL (20 00:00: morning [place] %) 00 and 1 mL Medical inhalation in the Branch solution evening. acetylcyste 2-0 Yes [id number] 200mg Inhale 1 [facility] ine 200 8-10 [id number] mL in the ity o f mg/mL (20 00:00: morning [place] %) 00 and 1 mL Medical inhalation in the Branch solution evening. acetylcyste 2-0 Yes [id number] 200mg Inhale 1 [facility] ine 200 8-10 [id number] mL in the ity o f mg/mL (20 00:00: morning [place] %) 00 and 1 mL Medical inhalation in the Branch solution evening. acetylcyste 2-0 Yes [id number] 200mg Inhale 1 [facility] ine 200 8-10 [id number] mL in the ity o f mg/mL (20 00:00: morning [place] %) 00 and 1 mL Medical inhalation in the Branch solution evening. acetylcyste 2-0 Yes [id number] 200mg Inhale 1 [facility] ine 200 8-10 [id number] mL in the ity o f mg/mL (20 00:00: morning [place] %) 00 and 1 mL Medical inhalation in the Branch solution evening. acetylcyste 2021-0 Yes [id number] 200mg Inhale 1 [facility] ine 200 8-10 [id number] mL in the ity o f mg/mL (20 00:00: morning [place] %) 00 and 1 mL Medical inhalation in the Branch solution evening. acetylcyste 2-0 Yes [id number] 200mg Inhale 1 [facility] ine 200 8-10 [id number] mL in the ity o f mg/mL (20 00:00: morning [place] %) 00 and 1 mL Medical inhalation in the Branch solution evening. acetylcyste 2-0 Yes [id number] 200mg Inhale 1 [facility] ine 200 8-10 [id number] mL in the ity o f mg/mL (20 00:00: morning [place] %) 00 and 1 mL Medical inhalation in the Branch solution evening. acetylcyste 2-0 Yes [id number] 200mg Inhale 1 [facility] ine 200 8-10 [id number] mL in the ity o f mg/mL (20 00:00: morning [place] %) 00 and 1 mL Medical inhalation in the Branch solution evening. acetylcyste 2-0 Yes [id number] 200mg Inhale 1 [facility] ine 200 8-10 [id number] mL in the ity o f mg/mL (20 00:00: morning [place] %) 00 and 1 mL Medical inhalation in the Branch solution evening. acetylcyste 2021-0 Yes [id number] 200mg Inhale 1 Univers ine 200 8-10 [id number] mL in the ity o f mg/mL (20 00:00: morning [place] %) 00 and 1 mL Medical inhalation in the Branch solution evening. acetylcyste 2021-0 Yes [id number] 200mg Inhale 1 [facility] ine 200 8-10 [id number] mL in the ity o f mg/mL (20 00:00: morning [place] %) 00 and 1 mL Medical inhalation in the Branch solution evening. acetylcyste 2021-0 Yes [id number] 200mg Inhale 1 Univers ine 200 8-10 [id number] mL in the ity o f mg/mL (20 00:00: morning [place] %) 00 and 1 mL Medical inhalation in the Branch solution evening. acetylcyste 2021-0 Yes [id number] 200mg Inhale 1 Univers ine 200 8-10 [id number] mL in the ity o f mg/mL (20 00:00: morning [place] %) 00 and 1 mL Medical inhalation in the Branch solution evening. acetylcyste 2021-0 Yes [id number] 200mg Inhale 1 Univers ine 200 8-10 [id number] mL in the ity o f mg/mL (20 00:00: morning [place] %) 00 and 1 mL Medical inhalation in the Branch solution evening. predniSONE 2021- No [id number] Take 2 Univers 10 mg 8-10 08-26 tablets by ity of tablet pack 00:00: 04:59 [place] 00 :00 daily for Medical 5 days, Branch THEN 1 tablet daily for 5 days, THEN 1 tablet every other day for 5 days. predniSONE 2021-2021- No [id number] Take 2 Univers 10 mg 8-10 08-26 tablets by ity of tablet pack 00:00: 04:59 [place] 00 :00 daily for Medical 5 days, Branch THEN 1 tablet daily for 5 days, THEN 1 tablet every other day for 5 days. predniSONE 2021-2021- No [id number] Take 2 Univers 10 mg 8-10 08-26 [...] FOR n SHORTNESS Cancer OF BREATH Center ProAir HFA Yes INHALE 2 Uni vers 90 8-07 PUFFS BY ity of mcg/actuati 00:00: MOUTH [place] on inhaler 00 EVERY 4 MD HOURS Anderso NEEDED FOR n SHORTNESS Cancer OF BREATH Center albuterol Yes [id number] INHALE 2 Univers (PROAIR 8-07 PUFFS BY ity of HFA) 90 00:00: MOUTH [place] mcg/actuati 00 EVERY 4 Medic al on inhaler HOURS Branc h NEEDED FOR SHORTNESS OF BREATH AND FOR WHEEZING albuterol Yes [id number] INHALE 2 Univers (PROAIR 8-07 PUFFS BY ity of HFA) 90 00:00: MOUTH [place] mcg/actuati 00 EVERY 4 Medic al on inhaler HOURS Branc h NEEDED FOR SHORTNESS OF BREATH AND FOR WHEEZING albuterol Yes [id number] INHALE 2 Univers (PROAIR 8-07 PUFFS BY ity of HFA) 90 00:00: MOUTH [place] mcg/actuati 00 EVERY 4 Medic al on inhaler HOURS Branc h NEEDED FOR SHORTNESS OF BREATH AND FOR WHEEZING albuterol Yes [id number] INHALE 2 Univers (PROAIR 8-07 PUFFS BY ity of HFA) 90 00:00: MOUTH [place] mcg/actuati 00 EVERY 4 Medic al on inhaler HOURS Branc h NEEDED FOR SHORTNESS OF BREATH AND FOR WHEEZING albuterol Yes [id number] INHALE 2 Univers (PROAIR 8-07 PUFFS BY ity of HFA) 90 00:00: MOUTH [place] mcg/actuati 00 EVERY 4 Medic al on inhaler HOURS Branc h NEEDED FOR SHORTNESS OF BREATH AND FOR WHEEZING albuterol Yes [id number] INHALE 2 Univers (PROAIR 8-07 PUFFS BY ity of HFA) 90 00:00: MOUTH [place] mcg/actuati 00 EVERY 4 Medic al on inhaler HOURS Branc h NEEDED FOR SHORTNESS OF BREATH AND FOR WHEEZING albuterol 2021-0 Yes [id number] INHALE 2 Univers (PROAIR 8-07 PUFFS BY ity of HFA) 90 00:00: MOUTH [place] mcg/actuati 00 EVERY 4 Medic al on inhaler HOURS Branc h NEEDED FOR SHORTNESS OF BREATH AND FOR WHEEZING albuterol 2021-0 Yes [id number] INHALE 2 Univers (PROAIR 8-07 PUFFS BY ity of HFA) 90 00:00: MOUTH [place] mcg/actuati 00 EVERY 4 Medic al on inhaler HOURS Branc h NEEDED FOR SHORTNESS OF BREATH AND FOR WHEEZING albuterol 2021-0 Yes [id number] INHALE 2 Univers (PROAIR 8-07 PUFFS BY ity of HFA) 90 00:00: MOUTH [place] mcg/actuati 00 EVERY 4 Medic al on inhaler HOURS Branc h NEEDED FOR SHORTNESS OF BREATH AND FOR WHEEZING albuterol 2021-0 Yes [id number] INHALE 2 Univers (PROAIR 8-07 PUFFS BY ity of HFA) 90 00:00: MOUTH [place] mcg/actuati 00 EVERY 4 Medic al on inhaler HOURS Branc h NEEDED FOR SHORTNESS OF BREATH AND FOR WHEEZING albuterol 2021-0 Yes [id number] INHALE 2 Univers (PROAIR 8-07 PUFFS BY ity of HFA) 90 00:00: MOUTH [place] mcg/actuati 00 EVERY 4 Medic al on inhaler HOURS Branc h NEEDED FOR SHORTNESS OF BREATH AND FOR WHEEZING albuterol 2021-0 Yes [id number] INHALE 2 Univers (PROAIR 8-07 PUFFS BY ity of HFA) 90 00:00: MOUTH [place] mcg/actuati 00 EVERY 4 Medic al on inhaler HOURS Branc h NEEDED FOR SHORTNESS OF BREATH AND FOR WHEEZING albuterol 2021-0 Yes [id number] INHALE 2 Univers (PROAIR 8-07 PUFFS BY ity of HFA) 90 00:00: MOUTH [place] mcg/actuati 00 EVERY 4 Medic al on inhaler HOURS Branc h NEEDED FOR SHORTNESS OF BREATH AND FOR WHEEZING albuterol 2021-0 Yes [id number] INHALE 2 Univers (PROAIR 8-07 PUFFS BY ity of HFA) 90 00:00: MOUTH [place] mcg/actuati 00 EVERY 4 Medic al on inhaler HOURS Branc h NEEDED FOR SHORTNESS OF BREATH AND FOR WHEEZING albuterol 0 Yes [id number] INHALE 2 Univers (PROAIR 8-07 PUFFS BY ity [facility]) 90 00:00: MOUTH [place] mcg/actuati 00 EVERY 4 Medic al on inhaler HOURS Branc h NEEDED FOR SHORTNESS OF BREATH AND FOR WHEEZING benzonatate Yes [id number] 100mg Take 1 Univers (TESSALON 7-29 capsule by ity of PERLES) 100 00:00: mouth [place] mg capsule 00 every 8 Medica l (eight) Branch hours as needed for Cough. benzonatate Yes [id number] 100mg Take 1 Univers (TESSALON 7-29 capsule by ity of PERLES) 100 00:00: mouth [place] mg capsule 00 every 8 Medica l (eight) Branch hours as needed for Cough. benzonatate Yes [id number] 100mg Take 1 Univers (TESSALON 7-29 capsule by ity of PERLES) 100 00:00: mouth [place] mg capsule 00 every 8 Medica l (eight) Branch hours as needed for Cough. benzonatate 0 Yes [id number] 100mg Take 1 Univers (TESSALON 7-29 capsule by ity of PERLES) 100 00:00: mouth [place] mg capsule 00 every 8 Medica l (eight) Branch hours as needed for Cough. benzonatate 0 Yes [id number] 100mg Take 1 Univers (TESSALON 7-29 capsule by ity of PERLES) 100 00:00: mouth [place] mg capsule 00 every 8 Medica l (eight) Branch hours as needed for Cough. benzonatate 0 Yes [id number] 100mg Take 1 Univers (TESSALON 7-29 capsule by ity of PERLES) 100 00:00: mouth [place] mg capsule 00 every 8 Medica l (eight) Branch hours as needed for Cough. benzonatate 0 Yes [id number] 100mg Take 1 Univers (TESSALON 7-29 capsule by ity of PERLES) 100 00:00: mouth [place] mg capsule 00 every 8 Medica l (eight) Branch hours as needed for Cough. benzonatate 0 Yes [id number] 100mg Take 1 Univers (TESSALON 7-29 capsule by ity of PERLES) 100 00:00: mouth [place] mg capsule 00 every 8 Medica l (eight) Branch hours as needed for Cough. benzonatate 0 Yes [id number] 100mg Take 1 Univers (TESSALON 7-29 capsule by ity of PERLOfferIQ) 100 00:00: mouth [place] mg capsule 00 every 8 Medica l (eight) Branch hours as needed for Cough. benzonatate 0 Yes [id number] 100mg Take 1 Univers (TESSALON 7-29 capsule by ity of PERLOfferIQ) 100 00:00: mouth [place] mg capsule 00 every 8 Medica l (eight) Branch hours as needed for Cough. benzonatate 0 Yes [id number] 100mg Take 1 Univers (TESSALON 7-29 capsule by ity of PERLOfferIQ) 100 00:00: mouth [place] mg capsule 00 every 8 Medica l (eight) Branch hours as needed for Cough. benzonatate 0 Yes [id number] 100mg Take 1 Univers (TESSALON 7-29 capsule by ity of PERLOfferIQ) 100 00:00: mouth [place] mg capsule 00 every 8 Medica l (eight) Branch hours as needed for Cough. benzonatate 0 Yes [id number] 100mg Take 1 Univers (TESSALON 7-29 capsule by ity of PERLOfferIQ) 100 00:00: mouth [place] mg capsule 00 every 8 Medica l (eight) Branch hours as needed for Cough. benzonatate 0 Yes [id number] 100mg Take 1 Univers (TESSALON 7-29 capsule by ity of PERLOfferIQ) 100 00:00: mouth [place] mg capsule 00 every 8 Medica l (eight) Branch hours as needed for Cough. benzonatate 2021-0 Yes [id number] 100mg Take 1 Univers (TESSALON 7-29 capsule by ity of PERLOfferIQ) 100 00:00: mouth [place] mg capsule 00 every 8 Medica l (eight) Branch hours as needed for Cough. doxycycline 0 Yes 0 Memori a hyclate 100 7-08 Refill(s) l mg oral 20:02: [place] tablet 00 doxycycline 2021-0 Yes 0 Mem[facility] a hyclate 100 7-08 Refill(s) l mg oral 20:02: [place] tablet 00 doxycycline 2021-0 Yes 0 Mem[facility] a hyclate 100 7-08 Refill(s) l mg oral 20:02: [place] tablet 00 doxycycline 2021-0 Yes 0 Memori a hyclate 100 7-08 Refill(s) l mg oral 20:02: [place] tablet 00 doxycycline 2021-0 Yes 0 Memori a hyclate 100 7-08 Refill(s) l mg oral 20:02: [place] tablet 00 doxycycline 2021-0 Yes 0 Memori [...] 100 7-08 Refill(s) l mg oral 20:02: [place] tablet 00 doxycycline 2021-0 Yes 0 Memori a hyclate 100 7-08 Refill(s) l mg oral 20:02: [place] tablet 00 gabapentin 2021-0 Yes 300 mg = 6 M emoria 250 mg/5 mL 6-10 mL, PO, l oral 15:16: BID, # 360 [place] solution 00 mL, 2 Refill(s), Pharmacy: [facility], 160.02, cm, 11/05/21 14:43:00 CDT, Height, 102.727, kg, 11/05/21 14:43:00 CDT, Weight gabapentin 2021-0 Yes 300 mg = 6 M emoria 250 mg/5 mL 6-10 mL, PO, l oral 15:16: BID, # 360 [place] solution 00 mL, 2 Refill(s), Pharmacy: [facility], 160.02, cm, 11/05/21 14:43:00 CDT, Height, 102.727, kg, 11/05/21 14:43:00 CDT, Weight gabapentin 2021-0 Yes 300 mg = 6 M emoria 250 mg/5 mL 6-10 mL, PO, l oral 15:16: BID, # 360 [place] solution 00 mL, 2 Refill(s), Pharmacy: [facility], 160.02, cm, 11/05/21 14:43:00 CDT, Height, 102.727, kg, 11/05/21 14:43:00 CDT, Weight gabapentin 2022-0 Yes 300 mg = 6 M emoria 250 mg/5 mL 6-10 mL, PO, l oral 15:16: BID, # 360 [place] solution 00 mL, 2 Refill(s), Pharmacy: [facility], 160.02, cm, 11/05/21 14:43:00 CDT, Height, 102.727, kg, 11/05/21 14:43:00 CDT, Weight gabapentin 2022-0 Yes 300 mg = 6 M emoria 250 mg/5 mL 6-10 mL, PO, l oral 15:16: BID, # 360 [place] solution 00 mL, 2 Refill(s), Pharmacy: [facility], 160.02, cm, 11/05/21 14:43:00 CDT, Height, 102.727, kg, 11/05/21 14:43:00 CDT, Weight gabapentin 2022-0 Yes 300 mg = 6 M emoria 250 mg/5 mL 6-10 mL, PO, l oral 15:16: BID, # 360 [place] solution 00 mL, 2 Refill(s), Pharmacy: [facility], 160.02, cm, 11/05/21 14:43:00 CDT, Height, 102.727, kg, 11/05/21 14:43:00 CDT, Weight gabapentin 2022-0 Yes 300 mg = 6 M em[place] 250 mg/5 mL 6-10 mL, PO, l oral 15:16: BID, # 360 [place] solution 00 mL, 2 Refill(s), Pharmacy: [facility], 160.02, cm, 11/05/21 14:43:00 CDT, Height, 102.727, kg, 11/05/21 14:43:00 CDT, Weight gabapentin 2022-0 Yes 300 mg = 6 M [place] 250 mg/5 mL 6-10 mL, PO, l oral 15:16: BID, # 360 [place] solution 00 mL, 2 Refill(s), Pharmacy: [facility], 160.02, cm, 11/05/21 14:43:00 CDT, Height, 102.727, kg, 11/05/21 14:43:00 CDT, Weight gabapentin Yes 300 mg = 6 M em[place] 250 mg/5 mL 6-10 mL, PO, l oral 15:16: BID, # 360 [place] solution 00 mL, 2 Refill(s), Pharmacy: [facility], 160.02, cm, 11/05/21 14:43:00 CDT, Height, 102.727, kg, 11/05/21 14:43:00 CDT, Weight gabapentin Yes 300 mg = 6 M [place] 250 mg/5 mL 6-10 mL, PO, l oral 15:16: BID, # 360 [place] solution 00 mL, 2 Refill(s), Pharmacy: [facility], 160.02, cm, 11/05/21 14:43:00 CDT, Height, 102.727, kg, 11/05/21 14:43:00 CDT, Weight gabapentin Yes [facility] (NEURONTIN) 6 [facility] 600 mg 12:44: [facility]osp[facility] tablet 17 l albuterol Yes Q8H every 8 Metho di (ACCUNEB) 6 (eight) st 2.5 mg /3 00:00: hours as [facility]osp bat[facility] mL (0.083 00 needed. l %) nebulizer solution Vibramycin Vibramycin 2021- No 1{capsu BID Vibramycin 100 MG 100 MG 08-2130 le} 100 MG 00:00: 00:00 00 :00 predniSONE predniSONE 2020-05- No BID predniSONE 20 MG 20 MG 0-14 10-19 20 MG 00:00: 00:00 00 :00 predniSONE predniSONE 2020-05- No BID predniSONE 20 MG 20 MG 0-14 10-19 20 MG 00:00: 00:00 00 :00 predniSONE Yes [facility] (DELTASONE) 8 [facility] 10 mg 00:00: Hospita tablet 00 l predniSONE predniSONE No QD predniSONE 10 MG 10 MG 8-03 10 MG 00:00: 00 predniSONE predniSONE 2021-0 No QD predniSONE 10 MG 10 MG 8-03 10 MG 00:00: 00 predniSONE predniSONE 2021-0 No QD predniSONE 10 MG 10 MG 8-03 10 MG 00:00: 00 predniSONE predniSONE 2021-0 No QD predniSONE 10 MG 10 MG 8-03 10 MG 00:00: 00 predniSONE predniSONE 2021-0 No QD predniSONE 10 MG 10 MG 8-03 10 MG 00:00: 00 predniSONE predniSONE 2021-0 No QD predniSONE 10 MG 10 MG 8-03 10 MG 00:00: 00 predniSONE predniSONE 2021-0 No QD predniSONE 10 MG 10 MG 8-03 10 MG 00:00: 00 predniSONE predniSONE 2020-0 No QD predniSONE 10 MG 10 MG 8-03 10 MG 00:00: 00 predniSONE predniSONE 1-0 No QD predniSONE 10 MG 10 MG 8-03 10 MG 00:00: 00 predniSONE predniSONE 1-0 No QD predniSONE 10 MG 10 MG 8-03 10 MG 00:00: 00 predniSONE predniSONE 2020-0 No QD predniSONE 10 MG 10 MG 8-03 10 MG 00:00: 00 predniSONE predniSONE 1-0 No QD predniSONE 10 MG 10 MG 8-03 10 MG 00:00: 00 predniSONE predniSONE 1-0 No QD predniSONE 10 MG 10 MG 8-03 10 MG 00:00: 00 predniSONE predniSONE 1-0 No QD predniSONE 10 MG 10 MG 8-03 10 MG 00:00: 00 predniSONE predniSONE 1-0 No QD predniSONE 10 MG 10 MG 8-03 10 MG 00:00: 00 predniSONE predniSONE 1-0 No QD predniSONE 10 MG 10 MG 8-03 10 MG 00:00: 00 predniSONE predniSONE 1-0 No QD predniSONE 10 MG 10 MG 8-03 10 MG 00:00: 00 predniSONE predniSONE 1-0 No QD predniSONE 10 MG 10 MG 8-03 10 MG 00:00: 00 predniSONE predniSONE 1-0 No QD predniSONE 10 MG 10 MG 8-03 10 MG 00:00: 00 predniSONE predniSONE 1-0 No QD predniSONE 10 MG 10 MG 8-03 10 MG 00:00: 00 predniSONE predniSONE 1-0 No QD predniSONE 10 MG 10 MG 8-03 10 MG 00:00: 00 predniSONE predniSONE 2020-0 No QD predniSONE 10 MG 10 MG 8-03 10 MG 00:00: 00 predniSONE predniSONE 2020-0 No QD predniSONE 10 MG 10 MG 8-03 10 MG 00:00: 00 predniSONE predniSONE 2021-0 No QD predniSONE 10 MG 10 MG 8-03 10 MG 00:00: 00 predniSONE predniSONE 2021-0 No QD predniSONE 10 MG 10 MG 8-03 10 MG 00:00: 00 predniSONE predniSONE 2021-0 No QD predniSONE 10 MG 10 MG 8-03 10 MG 00:00: 00 predniSONE predniSONE 2021-0 No QD predniSONE 10 MG 10 MG 8-03 10 MG 00:00: 00 predniSONE predniSONE 2021-0 No QD predniSONE 10 MG 10 MG 8-03 10 MG 00:00: 00 gabapentin 2021-0 Yes See Memoria 600 MG Oral 4-07 Instructio l Tablet 14:26: ns, 12 [place] 00 tab po bid, # 30 tab, 3 Refill(s), Pharmacy: [facility], 162.56, cm, 08/20/20 11:01:00 CDT, Height, 120.909, kg, 09/03/20 8:30:00 CDT, Weight gabapentin 2021-0 Yes See Memoria 600 MG Oral 4-07 Instructio l Tablet 14:26: ns, 2 [place] 00 tab po bid, # 30 tab, 3 Refill(s), Pharmacy: [facility], 162.56, cm, 08/20/20 11:01:00 CDT, Height, 120.909, kg, 09/03/20 8:30:00 CDT, Weight gabapentin 2021-0 Yes See Memoria 600 MG Oral 4-07 Instructio l Tablet 14:26: ns, 2 [place] 00 tab po bid, # 30 tab, 3 Refill(s), Pharmacy: [facility], 162.56, cm, 08/20/20 11:01:00 CDT, Height, 120.909, kg, 09/03/20 8:30:00 CDT, Weight gabapentin 2021-0 Yes See Memoria 600 MG Oral 4-07 Instructio l Tablet 14:26: ns, 12 [place] 00 tab po bid, # 30 tab, 3 Refill(s), Pharmacy: [facility], 162.56, cm, 08/20/20 11:01:00 CDT, Height, 120.909, kg, 09/03/20 8:30:00 CDT, Weight gabapentin 2021-0 Yes See Memoria 600 MG Oral 4-07 Instructio l Tablet 14:26: ns, 12 [place] 00 tab po bid, # 30 tab, 3 Refill(s), Pharmacy: [facility], 162.56, cm, 08/20/20 11:01:00 CDT, Height, 120.909, kg, 09/03/20 8:30:00 CDT, Weight gabapentin 2021-0 Yes See Memoria 600 MG Oral 4-07 Instructio l Tablet 14:26: ns, 12 [place] 00 tab po bid, # 30 tab, 3 Refill(s), Pharmacy: [facility], 162.56, cm, 08/20/20 11:01:00 CDT, Height, 120.909, kg, 09/03/20 8:30:00 CDT, Weight gabapentin 2021-0 Yes See Memoria 600 MG Oral 4-07 Instructio l Tablet 14:26: ns, 05/31 [place] 00 tab po bid, # 30 tab, 3 Refill(s), Pharmacy: [facility], 162.56, cm, 08/20/20 11:01:00 CDT, Height, 120.909, kg, 09/03/20 8:30:00 CDT, Weight gabapentin 2021-0 Yes See Memoria 600 MG Oral 4-07 Instructio l Tablet 14:26: ns, 05/31 [place] 00 tab po bid, # 30 tab, 3 Refill(s), Pharmacy: [facility], 162.56, cm, 08/20/20 11:01:00 CDT, Height, 120.909, kg, 09/03/20 8:30:00 CDT, Weight gabapentin 2021-0 Yes See Memoria 600 MG Oral 4-07 Instructio l Tablet 14:26: ns, 2 [place] 00 tab po bid, # 30 tab, 3 Refill(s), Pharmacy: [facility] 527, 162.56, cm, 08/20/20 11:01:00 CDT, Height, 120.909, kg, 09/03/20 8:30:00 CDT, Weight gabapentin 2021-0 Yes See Memoria 600 MG Oral 4-07 Instructio l Tablet 14:26: ns, 1 [place] 00 tab po bid, # 30 tab, 3 Refill(s), Pharmacy: [facility], 162.56, cm, 08/20/20 11:01:00 CDT, Height, 120.909, kg, 09/03/20 8:30:00 CDT, Weight ciclopirox 1-0 Yes 1 appl, Keanu tony 7.7 MG/ML 3-24 TOP, BID, l Topical 16:23: # 15 gm, 0 Herm sujatha Cream 00 Refill(s) ciclopirox 1-0 Yes 1 appl, Keanu tony 7.7 MG/ML 3-24 TOP, BID, l Topical 16:23: # 15 gm, 0 Herm sujatha Cream 00 Refill(s) ciclopirox 1-0 Yes 1 appl, Keanu tony 7.7 MG/ML 3-24 TOP, BID, l Topical 16:23: # 15 gm, 0 Herm sujatha Cream 00 Refill(s) ciclopirox 2020-0 Yes 1 appl, Keanu tony 7.7 MG/ML 3-24 TOP, BID, l Topical 16:23: # 15 gm, 0 Herm sujatha Cream 00 Refill(s) ciclopirox 1-0 Yes 1 appl, Keanu tony 7.7 MG/ML 3-24 TOP, BID, l Topical 16:23: # 15 gm, 0 Herm sujatha Cream 00 Refill(s) ciclopirox 1-0 Yes 1 appl, Keanu tony 7.7 MG/ML 3-24 TOP, BID, l Topical 16:23: # 15 gm, 0 Herm sujatha Cream 00 Refill(s) ciclopirox 1-0 Yes 1 appl, Keanu tony 7.7 MG/ML 3-24 TOP, BID, l Topical 16:23: # 15 gm, 0 Herm sujatha Cream 00 Refill(s) ciclopirox 2021-0 Yes 1 appl, Keanu tony 7.7 MG/ML 3-24 TOP, BID, l Topical 16:23: # 15 gm, 0 Herm sujatha Cream 00 Refill(s) ciclopirox 1-0 Yes 1 appl, Keanu tony 7.7 MG/ML 3-24 TOP, BID, l Topical 16:23: # 15 gm, 0 Herm sujatha Cream 00 Refill(s) ciclopirox 0 Yes 1 appl, Keanu tony 7.7 MG/ML 3-24 TOP, BID, l Topical 16:23: # 15 gm, 0 Herm sujatha Cream 00 Refill(s) Triamcinolo 0 Yes 1 appl, Mem oria ne 3-24 TOP, BID, l Acetonide 1 16:22: PRN For Her ramirez MG/ML 00 rash, # 15 Topical gm, 0 Cream Refill(s) Triamcinolo 0 Yes 1 appl, Mem oria ne 3-24 TOP, BID, l Acetonide 1 16:22: PRN For Her ramirez MG/ML 00 rash, # 15 Topical gm, 0 Cream Refill(s) Triamcinolo 2020-0 Yes 1 appl, Mem oria ne 3-24 TOP, BID, l Acetonide 1 16:22: PRN For Her ramirez MG/ML 00 rash, # 15 Topical gm, 0 Cream Refill(s) Triamcinolo 0 Yes 1 appl, Mem oria ne 3-24 TOP, BID, l Acetonide 1 16:22: PRN For Her ramirez MG/ML 00 rash, # 15 Topical gm, 0 Cream Refill(s) Triamcinolo 0 Yes 1 appl, Mem oria ne 3-24 [...] l Acetonide 1 16:22: PRN For Her ramirze MG/ML 00 rash, # 15 Topical gm, 0 Cream Refill(s) Triamcinolo Yes 1 appl, Mem oria ne 3-24 TOP, BID, l Acetonide 1 16:22: PRN For Her ramirez MG/ML 00 rash, # 15 Topical gm, 0 Cream Refill(s) [facility] Kenalog 2019-05 No 40mg Common (Triamcinol (Triamcinol 2-17 S pirit one) one) 00:00: - [facility] 00 [facility] Kenalog 2019- No 40mg Common (Triamcinol (Triamcinol 2-17 S pirit one) one) 00:00: - [facility] 00 [facility] Kenalog Kenalog 2019- No 40mg Common (Triamcinol (Triamcinol 2-17 S pirit one) one) 00:00: - [facility] 00 [facility] Kenalog Kenalog 2019- No 40mg Common (Triamcinol (Triamcinol 2-17 S pirit one) one) 00:00: - [facility] 00 [facility] Kenalog Kenalog 2019- No 40mg Common (Triamcinol (Triamcinol 2-17 S pirit one) one) 00:00: [facility] [facility] Kenalog 2019- No 40mg Common (Triamcinol (Triamcinol 2-17 S pirit one) one) 00:00: - [facility] 00 [facility] Kenalog Kenalog 2019- No 40mg Common (Triamcinol (Triamcinol 2-17 S pirit one) one) 00:00: - [facility] 00 [facility] Kenalog Kenalog 2019- No 40mg Common (Triamcinol (Triamcinol 2-17 S pirit one) one) 00:00: - [facility] 00 [facility] Kenalog Kenalog 2019- No 40mg Common (Triamcinol (Triamcinol 2-17 S pirit one) one) 00:00: - [facility] 00 [facility] Kenalog Kenalog 2019- No 40mg Common (Triamcinol (Triamcinol 2-17 S pirit one) one) 00:00: - [facility] 00 [facility] Kenalog Kenalog 2019- No 40mg Common (Triamcinol (Triamcinol 2-17 S pirit one) one) 00:00: - [facility] 00 [facility] Kenalog Kenalog 2019- No 40mg Common (Triamcinol (Triamcinol 2-17 S pirit one) one) 00:00: - [facility] 00 [facility] Kenalog Kenalog 2019- No 40mg Common (Triamcinol (Triamcinol 2-17 S pirit one) one) 00:00: - [facility] 00 [facility] Kenalog Kenalog 2019- No 40mg Common (Triamcinol (Triamcinol 2-17 S pirit one) one) 00:00: - [facility] 00 [facility] Kenalog Kenalog 2019- No 40mg Common (Triamcinol (Triamcinol 2-17 S pirit one) one) 00:00: - [facility] 00 [facility] Kenalog Kenalog 2019- No 40mg Common (Triamcinol (Triamcinol 2-17 S pirit one) one) 00:00: - [facility] 00 [facility] Kenalog Kenalog 2019- No 40mg Common (Triamcinol (Triamcinol 2-17 S pirit one) one) 00:00: - [facility] 00 [facility] Kenalog Kenalog 2019- No 40mg Common (Triamcinol (Triamcinol 2-17 S pirit one) one) 00:00: - [facility] 00 [facility] Kenalog Kenalog 2019- No 40mg Common (Triamcinol (Triamcinol 2-17 S pirit one) one) 00:00: - [facility] 00 [facility] Kenalog Kenalog 2019- No 40mg Common (Triamcinol (Triamcinol 2-17 S pirit one) one) 00:00: - [facility] 00 [facility] Kenalog Kenalog 2019- No 40mg Common (Triamcinol (Triamcinol 2-17 S pirit one) one) 00:00: - [facility] 00 [facility] Adi Kenalog 2019- No 40mg Common (Triamcinol (Triamcinol 2-17 S pirit one) one) 00:00: - [facility] 00 [facility]i Kenalog 2019- No 40mg Common (Triamcinol (Triamcinol 2-17 S pirit one) one) 00:00: - [facility] 00 [facility] Adi Kenalog 2019- No 40mg Common (Triamcinol (Triamcinol 2-17 S pirit one) one) 00:00: - [facility] 00 [facility] Adi Kenalog 2019- No 40mg Common (Triamcinol (Triamcinol 2-17 S pirit one) one) 00:00: - [facility] 00 [facility]i Kenalog 2019- No 40mg Common (Triamcinol (Triamcinol 2-17 S pirit one) one) 00:00: - [facility] 00 [facility] Adi Kenalog 2019- No 40mg Common (Triamcinol (Triamcinol 2-17 S pirit one) one) 00:00: - [facility] 00 [facility] Adi Kenalog 2019- No 40mg Common (Triamcinol (Triamcinol 2-17 S pirit one) one) 00:00: - [facility] 00 [facility] Cyclobenzap Cyclobenzap 2020-1 No 1{table Cyclobenza rine [...] HCl 5 rine HCl 5 2-11 t_at_be appa HCl MG MG 00:00: dtime_a 5 MG [...] 00:00: dtime_a 5 MG 00 s_neede d} [facility] Kenalog 2019- No 40mg Common (Triamcinol (Triamcinol 2-03 S pirit one) one) 00:00: - [facility] 00 [facility] Kenalog Kenalog 2019- No 40mg Common (Triamcinol (Triamcinol 2-03 S pirit one) one) 00:00: - [facility] 00 [facility] Kenalog Kenalog 2019- No 40mg Common (Triamcinol (Triamcinol 2-03 S pirit one) one) 00:00: - [facility] 00 [facility]- No 40mg Common (Triamcinol (Triamcinol 2-03 S pirit one) one) 00:00: - [facility] 00 [facility] Kenalog 2019- No 40mg Common (Triamcinol (Triamcinol 2-03 S pirit one) one) 00:00: - [facility] Common (Triamcinol (Triamcinol 2-03 S pirit one) one) 00:00: - [facility] 00 [facility] 2019- No 40mg Common (Triamcinol (Triamcinol 2-03 S pirit one) one) 00:00: - [facility]I 00 [facility] Kenalog Kenalog 2019- No 40mg Common (Triamcinol (Triamcinol 2-03 S pirit one) one) 00:00: - [facility] 00 [facility] Kenalog Kenalog 2019- No 40mg Common (Triamcinol (Triamcinol 2-03 S pirit one) one) 00:00: - [facility] 00 [facility] Kenalog Kenalog 2020- No 40mg Common (Triamcinol (Triamcinol 2-03 S pirit one) one) 00:00: - [facility] 00 [facility] Kenalog Kenalog 2020- No 40mg Common (Triamcinol (Triamcinol 2-03 S pirit one) one) 00:00: - [facility] 00 [facility] Kenalog Kenalog 2020- No 40mg Common (Triamcinol (Triamcinol 2-03 S pirit one) one) 00:00: - [facility] 00 [facility] Kenalog Kenalog 2019- No 40mg Common (Triamcinol (Triamcinol 2-03 S pirit one) one) 00:00: - [facility] 00 [facility] Kenalog Kenalog 2019- No 40mg Common (Triamcinol (Triamcinol 2-03 S pirit one) one) 00:00: - [facility] 00 [facility] Kenalog Kenalog 2019- No 40mg Common (Triamcinol (Triamcinol 2-03 S pirit one) one) 00:00: - [facility] 00 [facility] Kenalog Kenalog 2019- No 40mg Common (Triamcinol (Triamcinol 2-03 S pirit one) one) 00:00: - [facility] 00 [facility] Kenalog Kenalog 2019- No 40mg Common (Triamcinol (Triamcinol 2-03 S pirit one) one) 00:00: - [facility] 00 [facility] Kenalog Kenalog 2019- No 40mg Common (Triamcinol (Triamcinol 2-03 S pirit one) one) 00:00: - [facility] 00 [facility] Kenalog Kenalog 2019- No 40mg Common (Triamcinol (Triamcinol 2-03 S pirit one) one) 00:00: - [facility] 00 [facility] Kenalog Kenalog 2019- No 40mg Common (Triamcinol (Triamcinol 2-03 S pirit one) one) 00:00: - [facility] 00 [facility] Kenalog Kenalog 2019- No 40mg Common (Triamcinol (Triamcinol 2-03 S pirit one) one) 00:00: - [facility] 00 [facility] Kenalog Kenalog 2019- No 40mg Common (Triamcinol (Triamcinol 2-03 S pirit one) one) 00:00: - [facility] 00 [facility] Kenalog Kenalog 2019- No 40mg Common (Triamcinol (Triamcinol 2-03 S pirit one) one) 00:00: - [facility] 00 [facility] Kenalog Kenalog 2020- No 40mg Common (Triamcinol (Triamcinol 2-03 S pirit one) one) 00:00: - [facility] 00 [facility] Kenalog Kenalog 2019- No 40mg Common (Triamcinol (Triamcinol 2-03 S pirit one) one) 00:00: - [facility] 00 [facility] Kenalog Kenalog 2019- No 40mg Common (Triamcinol (Triamcinol 2-03 S pirit one) one) 00:00: - [facility] 00 [facility] Kenalog Kenalog 2019- No 40mg Common (Triamcinol (Triamcinol 2-03 S pirit one) one) 00:00: - [facility] 00 [facility] Kenalog Kenalog 2019- No 40mg Common (Triamcinol (Triamcinol 2-03 S pirit one) one) 00:00: - [facility] 00 [facility] Kenalog Kenalog 2019- No 40mg Common (Triamcinol (Triamcinol 1-18 S pirit one) one) 00:00: - [facility] 00 [facility] Kenalog Kenalog 2019- No 40mg Common (Triamcinol (Triamcinol 1-18 S pirit one) one) 00:00: - [facility] 00 [facility] Kenalog Kenalog 2019- No 40mg Common (Triamcinol (Triamcinol 1-18 S pirit one) one) 00:00: - [facility] 00 [facility] Kenalog Kenalog 2019- No 40mg Common (Triamcinol (Triamcinol 1-18 S pirit one) one) 00:00: - [facility] 00 [facility] Kenalog Kenalog 2019- No 40mg Common (Triamcinol (Triamcinol 1-18 S pirit one) one) 00:00: - [facility] 00 [facility] Kenalog Kenalog 2020- No 40mg Common (Triamcinol (Triamcinol 1-18 S pirit one) one) 00:00: - [facility] 00 [facility] Kenalog Kenalog 2019- No 40mg Common (Triamcinol (Triamcinol 1-18 S pirit one) one) 00:00: - [facility] 00 [facility] Kenalog Kenalog 2019- No 40mg Common (Triamcinol (Triamcinol 1-18 S pirit one) one) 00:00: - [facility] 00 [facility] Kenalog Kenalog 2019- No 40mg Common (Triamcinol (Triamcinol 1-18 S pirit one) one) 00:00: - [facility] 00 [facility] Kenalog Kenalog 2019- No 40mg Common (Triamcinol (Triamcinol 1-18 S pirit one) one) 00:00: - [facility] 00 [facility] Kenalog Kenalog 2019- No 40mg Common (Triamcinol (Triamcinol 1-18 S pirit one) one) 00:00: - [facility] 00 [facility] Kenalog Kenalog 2019- No 40mg Common (Triamcinol (Triamcinol 1-18 S pirit one) one) 00:00: - [facility] 00 [facility] Kenalog Kenalog 2019- No 40mg Common (Triamcinol (Triamcinol 1-18 S pirit one) one) 00:00: - [facility] 00 [facility] Kenalog Kenalog 2019- No 40mg Common (Triamcinol (Triamcinol 1-18 S pirit one) one) 00:00: - [facility] 00 [facility] Kenalog Kenalog 2019- No 40mg Common (Triamcinol (Triamcinol 1-18 S pirit one) one) 00:00: - [facility]I 00 [facility] Kenalog Kenalog 2019- No 40mg Common (Triamcinol (Triamcinol 1-18 S pirit one) one) 00:00: - [facility]I 00 [facility] Kenalog Kenalog 2019- No 40mg Common (Triamcinol (Triamcinol 1-18 S pirit one) one) 00:00: - [facility]I 00 [facility] Kenalog Kenalog 2019- No 40mg Common (Triamcinol (Triamcinol 1-18 S pirit one) one) 00:00: - [facility]I 00 [facility] Kenalog Kenalog 2019- No 40mg Common (Triamcinol (Triamcinol 1-18 S pirit one) one) 00:00: - [facility]I 00 [facility] Kenalog Kenalog 2019- No 40mg Common (Triamcinol (Triamcinol 1-18 S pirit one) one) 00:00: - [facility]I 00 [facility] Kenalog Kenalog 2019- No 40mg Common (Triamcinol (Triamcinol 1-18 S pirit one) one) 00:00: - [facility]I 00 [facility] Kenalog Kenalog 2019- No 40mg Common (Triamcinol (Triamcinol 1-18 S pirit one) one) 00:00: - [facility]I 00 [facility] Kenalog Kenalog 2019- No 40mg Common (Triamcinol (Triamcinol 1-18 S pirit one) one) 00:00: - [facility] 00 [facility] Kenalog Kenalog 2019- No 40mg Common (Triamcinol (Triamcinol 1-18 S pirit one) one) 00:00: - [facility]I 00 [facility] Kenalog Kenalog 2019- No 40mg Common (Triamcinol (Triamcinol 1-18 S pirit one) one) 00:00: - [facility]I 00 [facility] Kenalog Kenalog 2019- No 40mg Common (Triamcinol (Triamcinol 1-18 S pirit one) one) 00:00: - [facility]I 00 [facility] Kenalog Kenalog 2019- No 40mg Common (Triamcinol (Triamcinol 1-18 S pirit one) one) 00:00: - [facility]I 00 [facility] Kenalog Kenalog 2019- No 40mg Common (Triamcinol (Triamcinol 1-18 S pirit one) one) 00:00: - [facility]I 00 [facility] Kenalog Kenalog 2019- No 40mg Common (Triamcinol (Triamcinol 0-30 S pirit one) one) 00:00: - [facility]I 00 [facility] Kenalog Kenalog 2019- No 40mg Common (Triamcinol (Triamcinol 0-30 S pirit one) one) 00:00: - [facility]I 00 [facility] Kenalog Kenalog 2019- No 40mg Common (Triamcinol (Triamcinol 0-30 S pirit one) one) 00:00: - [facility] 00 [facility] Kenalog Kenalog 2019- No 40mg Common (Triamcinol (Triamcinol 0-30 S pirit one) one) 00:00: - [facility]I 00 [facility] Kenalog Kenalog 2019- No 40mg Common (Triamcinol (Triamcinol 0-30 S pirit one) one) 00:00: - [facility]I 00 [facility] Kenalog Kenalog 2019- No 40mg Common (Triamcinol (Triamcinol 0-30 S pirit one) one) 00:00: - [facility]I 00 [facility] Kenalog Kenalog 2019- No 40mg Common (Triamcinol (Triamcinol 0-30 S pirit one) one) 00:00: - [facility]I 00 [facility] Kenalog Kenalog 2019- No 40mg Common (Triamcinol (Triamcinol 0-30 S pirit one) one) 00:00: - [facility]I 00 [facility] Kenalog Kenalog 2019- No 40mg Common (Triamcinol (Triamcinol 0-30 S pirit one) one) 00:00: - [facility]I 00 [facility] Kenalog Kenalog 2019- No 40mg Common (Triamcinol (Triamcinol 0-30 S pirit one) one) 00:00: - [facility]I 00 [facility] Kenalog Kenalog 2019- No 40mg Common (Triamcinol (Triamcinol 0-30 S pirit one) one) 00:00: - [facility]I 00 [facility] Kenalog Kenalog 2019- No 40mg Common (Triamcinol (Triamcinol 0-30 S pirit one) one) 00:00: - [facility]I 00 [facility] Kenalog Kenalog 2019- No 40mg Common (Triamcinol (Triamcinol 0-30 S pirit one) one) 00:00: - [facility]I 00 [facility] Kenalog Kenalog 2019- No 40mg Common (Triamcinol (Triamcinol 0-30 S pirit one) one) 00:00: - [facility]I 00 [facility] Kenalog Kenalog 2019- No 40mg Common (Triamcinol (Triamcinol 0-30 S pirit one) one) 00:00: - [facility]I 00 [facility] Kenalog Kenalog 2019- No 40mg Common (Triamcinol (Triamcinol 0-30 S pirit one) one) 00:00: - [facility]I 00 [facility] Kenalog Kenalog 2019- No 40mg Common (Triamcinol (Triamcinol 0-30 S pirit one) one) 00:00: - [facility]I 00 [facility] Kenalog Kenalog 2019- No 40mg Common (Triamcinol (Triamcinol 0-30 S pirit one) one) 00:00: - [facility]I 00 [facility] Kenalog Kenalog 2019- No 40mg Common (Triamcinol (Triamcinol 0-30 S pirit one) one) 00:00: - [facility]I 00 [facility] Kenalog Kenalog 2019- No 40mg Common (Triamcinol (Triamcinol 0-30 S pirit one) one) 00:00: - [facility]I 00 [facility] Kenalog Kenalog 2019-05 No 40mg Common (Triamcinol (Triamcinol 0-30 S pirit one) one) 00:00: - [facility]I 00 [facility] Kenalog Kenalog 2019- No 40mg Common (Triamcinol (Triamcinol 0-30 S pirit one) one) 00:00: - [facility]I 00 [facility] Kenalog Kenalog 2019- No 40mg Common (Triamcinol (Triamcinol 0-30 S pirit one) one) 00:00: - [facility]I 00 [facility] Kenalog Kenalog 2019- No 40mg Common (Triamcinol (Triamcinol 0-30 S pirit one) one) 00:00: - [facility]I 00 [facility] Kenalog Kenalog 2019- No 40mg Common (Triamcinol (Triamcinol 0-30 S pirit one) one) 00:00: - [facility]I 00 [facility] Kenalog Kenalog 2019- No 40mg Common (Triamcinol (Triamcinol 0-30 S pirit one) one) 00:00: - [facility]I 00 [facility] Kenalog Kenalog 2019- No 40mg Common (Triamcinol (Triamcinol 0-30 S pirit one) one) 00:00: - [facility]I 00 [facility] Kenalog Kenalog 2019-05 No 40mg Common (Triamcinol (Triamcinol 0-30 S pirit one) one) 00:00: - [facility]I 00 [facility] Kenalog Kenalog 2019- No 40mg Common (Triamcinol (Triamcinol 0-16 S pirit one) one) 00:00: - [facility]I 00 [facility] Kenalog Kenalog 2019-05 No 40mg Common (Triamcinol (Triamcinol 0-16 S pirit one) one) 00:00: - [facility]I 00 [facility] Kenalog Kenalog 2019-05 No 40mg Common (Triamcinol (Triamcinol 0-16 S pirit one) one) 00:00: - [facility] 00 [facility] 2019-05 No 40mg Common (Triamcinol (Triamcinol 0-16 S pirit one) one) 00:00: - [facility]I 00 [facility] Kenalog Kenalog 2019-05 No 40mg Common (Triamcinol (Triamcinol 0-16 S pirit one) one) 00:00: - [facility]I 00 [facility] Kenalog Kenalog 2019-05 No 40mg Common (Triamcinol (Triamcinol 0-16 S pirit one) one) 00:00: - [facility]I 00 [facility] Kenalog Kenalog 2019- No 40mg Common (Triamcinol (Triamcinol 0-16 S pirit one) one) 00:00: - [facility]I 00 [facility] Kenalog Kenalog 2019- No 40mg Common (Triamcinol (Triamcinol 0-16 S pirit one) one) 00:00: - [facility]I 00 [facility] Kenalog Kenalog 2019-05 No 40mg Common (Triamcinol (Triamcinol 0-16 S pirit one) one) 00:00: - [facility]I 00 [facility] Kenalog Kenalog 2019- No 40mg Common (Triamcinol (Triamcinol 0-16 S pirit one) one) 00:00: - [facility]I 00 [facility] Kenalog Kenalog 2019- No 40mg Common (Triamcinol (Triamcinol 0-16 S pirit one) one) 00:00: - [facility]I 00 [facility] Kenalog Kenalog 2019- No 40mg Common (Triamcinol (Triamcinol 0-16 S pirit one) one) 00:00: - [facility] 00 [facility] 2019- No 40mg Common (Triamcinol (Triamcinol 0-16 S pirit one) one) 00:00: - [facility] 00 [facility] 2019- No 40mg Common (Triamcinol (Triamcinol 0-16 S pirit one) one) 00:00: - [facility]I 00 [facility] Ken[facility] 2019- No 40mg Common (Triamcinol (Triamcinol 0-16 S pirit one) one) 00:00: - [facility] 00 [facility] Ken[facility] 2019- No 40mg Common (Triamcinol (Triamcinol 0-16 S pirit one) one) 00:00: - [facility]I 00 [facility] Kenalog Kenalog 2019- No 40mg Common (Triamcinol (Triamcinol 0-16 S pirit one) one) 00:00: - [facility]I 00 [facility] Kenalog Kenalog 2019- No 40mg Common (Triamcinol (Triamcinol 0-16 S pirit one) one) 00:00: - [facility]I 00 [facility] Kenalog Kenalog 2019- No 40mg Common (Triamcinol (Triamcinol 0-16 S pirit one) one) 00:00: - [facility]I 00 [facility] Kenalog Kenalog 2019- No 40mg Common (Triamcinol (Triamcinol 0-16 S pirit one) one) 00:00: - CHI 00 [facility] Kenalog 2019- No 40mg Common (Triamcinol (Triamcinol 0-16 S pirit one) one) 00:00: - [facility]I 00 [facility] Kenalog 2019- No 40mg Common (Triamcinol (Triamcinol 0-16 S pirit one) one) 00:00: - [facility] 00 [facility] 2019- No 40mg Common (Triamcinol (Triamcinol 0-16 S pirit one) one) 00:00: - [facility] 00 [facility] 2019- No 40mg Common (Triamcinol (Triamcinol 0-16 S pirit one) one) 00:00: - [facility] 00 [facility] 2019- No 40mg Common (Triamcinol (Triamcinol 0-16 S pirit one) one) 00:00: - [facility] 00 [facility] 2019- No 40mg Common (Triamcinol (Triamcinol 0-16 S pirit one) one) 00:00: - [facility] 00 [facility] 2019- No 40mg Common (Triamcinol (Triamcinol 0-16 S pirit one) one) 00:00: - [facility] 00 [facility] 2019- No 40mg Common (Triamcinol (Triamcinol 0-16 S pirit one) one) 00:00: - [facility] 00 [facility] PrednisoLON PrednisoLON 2020- No Elpidio 1.6 ml Common E Sodium E Sodium 01-21 [facility] once a day [facility] Phosphate Phosphate 00:00: 00:00 x3 weeks, - [facility] 00 :[address] [facility] PredniSONE PredniSONE 2019- No Elpidio 2 tablets Common 01-13 [facility] with food [facility] 00:00: 00:00 or milk x - [facility] 00 :[address] [facility] ProAir HFA 2018-0 Yes 1 - 2 Mem[facility] a 7-01 puffs, PO, l 16:43: Q4H, PRN [place] 00 Wheezing / cough / shortness of breath, # 1 ea, 0 Refill(s) Indomethaci 2019-0 Yes 0 Memori a n 7-01 Refill(s) l 16:43: [place] 00 Valium 2019-0 Yes 0 Memoria 7-01 Refill(s) l 16:43: [place] 00 Tramadol 2019-0 Yes 50 mg, PO, Mem oria 7-01 Q4-6H, PRN l 16:43: Pain, # 20 [place] 00 tab, 0 Refill(s) ProAir HFA 2019-0 [...] Q4-6H, PRN l 16:43: Pain, # 20 [place] 00 tab, 0 Refill(s) ProAir HFA 2019-0 Yes 1 - 2 Memori a 7-01 puffs, PO, l 16:43: Q4H, PRN [place] 00 Wheezing / cough / shortness of breath, # 1 ea, 0 Refill(s) Indomethaci 2019-0 Yes 0 Memori a n 7-01 Refill(s) l 16:43: [place] 00 Valium 2019-0 Yes 0 Memoria 7-01 Refill(s) l 16:43: [place] 00 Tramadol 2019-0 Yes 50 mg, PO, Mem oria 7-01 Q4-6H, PRN l 16:43: Pain, # 20 [place] 00 tab, 0 Refill(s) ProAir HFA 2019-0 Yes 1 - 2 Memori a 7-01 puffs, PO, l 16:43: Q4H, PRN [place] 00 Wheezing / cough / shortness of breath, # 1 ea, 0 Refill(s) ProAir HFA 2019-0 Yes 1 - 2 Memori a 7-01 puffs, PO, l 16:43: Q4H, PRN [place] 00 Wheezing / cough / shortness of breath, # 1 ea, 0 Refill(s) Indomethaci 2019-0 Yes 0 Memori a n 7-01 Refill(s) l 16:43: [place] 00 Valium 2019-0 Yes 0 Memoria 7-01 Refill(s) l 16:43: [place] 00 Tramadol 2019-0 Yes 50 mg, PO, Mem oria 7-01 Q4-6H, PRN l 16:43: Pain, # 20 [place] 00 tab, 0 Refill(s) ProAir HFA 2019-0 Yes 1 - 2 Mem[facility] a 7-01 puffs, PO, l 16:43: Q4H, PRN [place] 00 Wheezing / cough / shortness of breath, # 1 ea, 0 Refill(s) ProAir HFA 2019-0 Yes 1 - 2 Memori a 7-01 puffs, PO, l 16:43: Q4H, PRN [place] 00 Wheezing / cough / shortness of breath, # 1 ea, 0 Refill(s) Indomethaci 2019-0 Yes 0 Memori a n 7-01 Refill(s) l 16:43: [place] 00 Valium 2019-0 Yes 0 Memoria 7-01 Refill(s) l 16:43: [place] Tramadol 2019-0 Yes 50 mg, PO, Mem oria 7- Q4-6H, PRN l 16:43: Pain, # 20 [place] 00 tab, 0 Refill(s) ProAir HFA 2019-0 Yes 1 - 2 Memori a 7-01 puffs, PO, l 16:43: Q4H, PRN [place] 00 Wheezing / cough / shortness of breath, # 1 ea, 0 Refill(s) ProAir HFA 2019-0 Yes 1 - 2 [facility] 7-01 puffs, PO, l 16:43: Q4H, PRN [place] 00 Wheezing / cough / shortness of breath, # 1 ea, 0 Refill(s) Indomethaci 2019-0 Yes 0 Memori a n 7-01 Refill(s) l 16:43: [place] 00 Valium 2019-0 Yes 0 Memoria 7-01 Refill(s) l 16:43: [place] 00 Tramadol 2019-0 Yes 50 mg, PO, Mem oria 7-01 Q4-6H, PRN l 16:43: Pain, # 20 [place] 00 tab, 0 Refill(s) ProAir HFA 2019-0 Yes 1 - 2 Memori a 7-01 puffs, PO, l 16:43: Q4H, PRN [place] 00 Wheezing / cough / shortness of breath, # 1 ea, 0 Refill(s) ProAir HFA 2019-0 Yes 1 - 2 Memori a 7-01 puffs, PO, l 16:43: Q4H, PRN [place] 00 Wheezing / cough / shortness of breath, # 1 ea, 0 Refill(s) Indomethaci 2019-0 Yes 0 Memori a n 7-01 Refill(s) l 16:43: [place] 00 Valium 2019-0 Yes 0 Memoria 7-01 [...] 7-01 puffs, PO, l 16:43: Q4H, PRN [place] 00 Wheezing / cough / shortness of [...] Q4-6H, PRN l 16:43: Pain, # 20 [place] 00 tab, 0 Refill(s) ProAir HFA 2019-0 Yes 1 - 2 Memori a 7-01 puffs, PO, l 16:43: Q4H, PRN [place] 00 Wheezing / cough / shortness of breath, # 1 ea, 0 Refill(s) ProAir HFA Yes 1 - 2 Memori a 7-01 puffs, PO, l 16:43: Q4H, PRN [place] 00 Wheezing / cough / shortness of breath, # 1 ea, 0 Refill(s) Indomethaci 2019-0 Yes 0 Memori a n 7-01 Refill(s) l 16:43: [place] 00 Valium 2019-0 Yes 0 Memoria 7-01 [...] # 1 ea, 0 Refill(s) albuterol Yes [id number] 2.5mg Inhale 3 [facility] 2.5 mg /3 4-17 mL every 6 ity of mL (0.083 00:00: (six) [place] %) 00 hours as Medical nebulizer needed for Bran ch solution Wheezing or Shortness of Breath. albuterol Yes [id number] 2.5mg Inhale 3 [facility] 2.5 mg /3 4-17 mL every 6 ity of mL (0.083 00:00: (six) [place] %) 00 hours as Medical nebulizer needed for Bran ch solution Wheezing or Shortness of Breath. albuterol 2019-0 Yes [id number] 2.5mg Inhale 3 [facility] 2.5 mg /3 4-17 mL every 6 ity of mL (0.083 00:00: (six) [place] %) 00 hours as Medical nebulizer needed for Bran ch solution Wheezing or Shortness of Breath. albuterol 2019-0 Yes [id number] 2.5mg Inhale 3 [facility] 2.5 mg /3 4-17 mL every 6 ity of mL (0.083 00:00: (six) [place] %) 00 hours as Medical nebulizer needed for Bran ch solution Wheezing or Shortness of Breath. albuterol 2019-0 Yes [id number] 2.5mg Inhale 3 [facility] 2.5 mg /3 4-17 mL every 6 ity of mL (0.083 00:00: (six) [place] %) 00 hours as Medical nebulizer needed for Bran ch solution Wheezing or Shortness of Breath. albuterol 2019-0 Yes [id number] 2.5mg Inhale 3 [facility] 2.5 mg /3 4-17 mL every 6 ity of mL (0.083 00:00: (six) [place] %) 00 hours as Medical nebulizer needed for Bran ch solution Wheezing or Shortness of Breath. albuterol 2019-0 Yes [id number] 2.5mg Inhale 3 [facility] 2.5 mg /3 4-17 mL every 6 ity of mL (0.083 00:00: (six) [place] %) 00 hours as Medical nebulizer needed for Bran ch solution Wheezing or Shortness of Breath. albuterol 2019-0 Yes [id number] 2.5mg Inhale 3 [facility] 2.5 mg /3 4-17 mL every 6 ity of mL (0.083 00:00: (six) [place] %) 00 hours as Medical nebulizer needed for Bran ch solution Wheezing or Shortness of Breath. albuterol 2019-0 Yes [id number] 2.5mg Inhale 3 [facility] 2.5 mg /3 4-17 mL every 6 ity of mL (0.083 00:00: (six) [place] %) 00 hours as Medical nebulizer needed for Bran ch solution Wheezing or Shortness of Breath. albuterol 2019-0 Yes [id number] 2.5mg Inhale 3 [facility] 2.5 mg /3 4-17 mL every 6 ity of mL (0.083 00:00: (six) [place] %) 00 hours as Medical nebulizer needed for Bran ch solution Wheezing or Shortness of Breath. albuterol 2019-0 Yes [id number] 2.5mg Inhale 3 Univers 2.5 mg /3 4-17 mL every 6 ity of mL (0.083 00:00: (six) [place] %) 00 hours as Medical nebulizer needed for Bran ch solution Wheezing or Shortness of Breath. albuterol 2019-0 Yes [id number] 2.5mg Inhale 3 Univers 2.5 mg /3 4-17 mL every 6 ity of mL (0.083 00:00: (six) [place] %) 00 hours as Medical nebulizer needed for Bran ch solution Wheezing or Shortness of Breath. albuterol 2019-0 Yes [id number] 2.5mg Inhale 3 Univers 2.5 mg /3 4-17 mL every 6 ity of mL (0.083 00:00: (six) [place] %) 00 hours as Medical nebulizer needed for Bran ch solution Wheezing or Shortness of Breath. albuterol 2019-0 Yes [id number] 2.5mg Inhale 3 Univers 2.5 mg /3 4-17 mL every 6 ity of mL (0.083 00:00: (six) [place] %) 00 hours as Medical nebulizer needed for Bran ch solution Wheezing or Shortness of Breath. albuterol 2019-0 Yes [id number] 2.5mg Inhale 3 Univers 2.5 mg /3 4-17 mL every 6 ity of mL (0.083 00:00: (six) [place] %) 00 hours as Medical nebulizer needed for Bran ch solution Wheezing or Shortness of Breath. albuterol 2018-0 Yes Q4H every 4 Metho di (PROAIR 3-27 (four) st HFA) 90 00:00: hours as Hospit a mcg/actuati 00 needed. l on inhaler Albuterol Albuterol Yes Elpidio INHALE 2 Common Sulfate HFA Sulfate HFA Regalado PUFFS BY [facility] EVERY [facility] Albuterol Albuterol Yes Elpidio 3 ml as Common Sulfate Sulfate [facility] needed [facility] predniSONE predniSONE No 1{table QD [...] predniSONE 20 MG 20 MG 20 MG Gabapentin Gabapentin No 1{table BID Gabapentin 300 MG 300 MG t} 300 MG ProAir HFA ProAir HFA No ProAir HFA 108 (90 108 (90 108 (90 Base) Base) Base) MCG/ACT MCG/ACT MCG/ACT ProAir HFA ProAir HFA No 1{puff_ 6xD ProAir HFA 108 (90 108 (90 as_need 108 (90 Base) Base) ed} Base) MCG/ACT MCG/ACT MCG/ACT predniSONE predniSONE No QD predniSONE 10 MG 10 MG 10 MG Ventolin Ventolin No 1{puff_ 6xD Ventolin HFA 108 (90 HFA 108 (90 as_need HFA 108 Base) Base) ed} (90 Base) MCG/ACT MCG/ACT MCG/ACT Albuterol Albuterol No TID Albuterol Sulfate Sulfate Sulfate (2.5 (2.5 (2.5 MG/3ML) MG/3ML) MG/3ML) 0.083% 0.083% 0.083% predniSONE predniSONE No predniSONE 10 MG 10 MG 10 MG Albuterol Albuterol No 3{ml_as TID Albuterol [...] predniSONE 20 MG 20 MG 20 MG Gabapentin Gabapentin No 1{table BID Gabapentin 300 MG 300 MG t} 300 MG ProAir HFA ProAir HFA No ProAir HFA 108 (90 108 (90 108 (90 Base) Base) Base) MCG/ACT MCG/ACT MCG/ACT ProAir HFA ProAir HFA No 1{puff_ 6xD ProAir HFA 108 (90 108 (90 as_need 108 (90 Base) Base) ed} Base) MCG/ACT MCG/ACT MCG/ACT predniSONE predniSONE No QD predniSONE 10 MG 10 MG 10 MG Ventolin Ventolin No 1{puff_ 6xD Ventolin HFA 108 (90 HFA 108 (90 as_need HFA 108 Base) Base) ed} (90 Base) MCG/ACT MCG/ACT MCG/ACT Albuterol Albuterol No TID Albuterol Sulfate Sulfate Sulfate (2.5 (2.5 (2.5 MG/3ML) MG/3ML) MG/3ML) 0.083% 0.083% 0.083% predniSONE predniSONE No predniSONE 10 MG 10 MG 10 MG Albuterol Albuterol No 3{ml_as TID Albuterol [...] predniSONE 20 MG 20 MG 20 MG Immunizations Ordered Filled Date Status Comments Source Immunization Name Immunization Name Adi Joshi 2020-05-15 [facility] 13:40:00 [facility] Adi Joshi 2020-05-15 Completed [facility] (Triamcinolone) (Triamcinolone) 13:40:00 [facility] Adi Joshi 2020-05-01 Completed [facility] (Triamcinolone) (Triamcinolone) 14:53:00 [facility] Adi Joshi 2020-05-01 Completed [facility] (Triamcinolone) (Triamcinolone) 14:53:00 [facility] Adi Joshi 2020-04-16 Completed [facility] (Triamcinolone) (Triamcinolone) 15:57:00 [facility] Adi Joshi 2020-04-16 Completed [facility] (Triamcinolone) (Triamcinolone) 15:57:00 [facility] Adi Joshi 2020-03-28 Completed [facility] (Triamcinolone) (Triamcinolone) 10:21:00 [facility] Adi Joshi 2020-03-28 [facility]pleted [facility] (Triamcinolone) (Triamcinolone) 10:21:00 [facility] Adi Joshi 2020-03-14 Completed [facility] (Triamcinolone) (Triamcinolone) 13:48:00 [facility] Adi Joshi 2020-03-14 Completed [facility] (Triamcinolone) (Triamcinolone) 13:48:00 [facility] TDAP 2012-09-04 Completed University of 00:00:00 [facility] TDAP 2012-09-04 Completed University of 00:00:00 [facility] TDAP 2012-09-04 Completed University of 00:00:00 [facility] TDAP 2012-09-04 Completed University of 00:00:00 [facility] TDAP 2012-09-04 Completed University of 00:00:00 [facility] TDAP 2012-09-04 Completed University of 00:00:00 [facility] TDAP 2012-09-04 Completed University of 00:00:00 [facility] TDAP 2012-09-04 Completed University of 00:00:00 [facility] TDAP 2012-09-04 Completed University of 00:00:00 [facility] TDAP 2012-09-04 Completed University of 00:00:00 [facility] TDAP 2012-09-04 Completed University of 00:00:00 [facility] TDAP 2012-09-04 Completed University of 00:00:00 [facility] TDAP 2012-09-04 Completed University of 00:00:00 [facility] TDAP Unknown Completed [facility] TDAP Unknown Completed [facility] Tdap Unknown Completed [facility] Vital Signs Vital Name Observation Time Observation Value Comments Source Systolic blood 2023-03-09 11:00:00 106 mm[Hg] Univer sity of [facility] Diastolic blood 2023-03-09 11:00:00 59 mm[Hg] Unive rsity of [facility] Heart rate 2023-03-09 11:00:00 77 /min [facility] Body temperature 2023-03-09 11:00:00 36.89 [facility] Res[facility] rate 2023-03-09 11:00:00 16 /min [facility] Oxygen saturation in 2023-03-09 11:00:00 100 /min [facility] Arterial blood by [facility] Pulse oximetry [facility] Body weight 2023-03-08 20:03:00 54.432 kg [facility] BMI 2023-03-08 20:03:00 21.26 kg/m2 [facility] height 2022-08-24 14:40:00 66 [in_i] Common [facility] weight 2022-08-24 14:40:00 230 [lb_av] Common [facility] bmi 2022-08-24 14:40:00 37.12 kg/m2 [facility] height 2022-02-22 16:40:00 66 [in_i] [facility] weight 2022-02-22 16:40:00 230 [lb_av] [facility] bmi 2022-02-22 16:40:00 37.12 kg/m2 Common S [facility] Heart rate 2022-01-31 23:17:00 85 /min Universi ty of [facility] Respiratory rate 2022-01-31 23:17:00 20 /min Univ ersity of [facility] Oxygen saturation in 2022-01-31 23:17:00 99 /min University of Arterial blood by [facility] Pulse oximetry Branch Systolic blood 2022-01-31 22:52:09 175 mm[Hg] Univer sity of pressure [facility] Diastolic blood 2022-01-31 22:52:09 81 mm[Hg] Unive rsity of [facility] Body temperature 2022-01-31 22:52:09 37.22 Lilly Univ ersity of [facility] Body weight 2022-01-31 22:48:00 86.183 kg Universi ty of [facility] BMI 2022-01-31 22:48:00 33.67 kg/m2 Universi ty of [facility] Systolic blood 2022-01-19 03:00:00 131 mm[Hg] Univer sity of [facility] Diastolic blood 2022-01-19 03:00:00 73 mm[Hg] Unive rsity of [facility] Heart rate 2022-01-19 03:00:00 76 /min Universi ty of [facility] Respiratory rate 2022-01-19 03:00:00 18 /min Univ ersity of [facility] Oxygen saturation in 2022-01-19 03:00:00 96 /min University of Arterial blood by [facility] Pulse oximetry Branch Body temperature 2022-01-18 23:15:00 37.67 Lilly Univ ersity of [facility] Body weight 2022-01-18 23:15:00 86.183 kg Universi ty of [facility] BMI 2022-01-18 23:15:00 33.67 kg/m2 Universi ty of [facility] height 2021-12-21 07:30:00 66 [in_i] Common [facility] weight 2021-12-21 07:30:00 235 [lb_av] Common [facility] temperature 2021-12-21 07:30:00 98 [degF] Common S pirit - [facility] bmi 2021-12-21 07:30:00 37.93 kg/m2 Common S pirit - [facility] blood pressure 2021-12-21 07:30:00 132 mm[Hg] [facility] - systolic [facility] blood pressure 2021-12-21 07:30:00 70 mm[Hg] [facility] diastolic [facility] height 2021-10-16 10:10:00 66 [in_i] Common S p[facility] - [facility] weight 2021-10-16 10:10:00 234.1 [lb_av] [facility] temperature 2021-10-16 10:10:00 96.6 [degF] [facility] bmi 2021-10-16 10:10:00 37.78 kg[facility]m2 [facility] oximetry 2021-10-16 10:10:00 99 % [facility] respiratory rate 2021-10-16 10:10:00 18 /min Comm on [facility] blood pressure 2021-10-16 10:10:00 148 mm[Hg] [facility] systolic [facility] blood pressure 2021-10-16 10:10:00 75 mm[Hg] [facility] - diastolic [facility] height 2021-08-21 08:40:00 66 [in_i] Common S pirit - [facility] weight 2021-08-21 08:40:00 249 [lb_av] Common S p[facility] - [facility] bmi 2021-08-21 08:40:00 40.19 kg/m2 Common S pirit [facility] height 2021-03-12 15:40:00 66 [in_i] [facility] weight 2021-03-12 15:40:00 249 [lb_av] [facility] bmi 2021-03-12 15:40:00 40.19 kg[facility]m2 [facility] 2023-01-07 16:39:00 123 mm[Hg] Univer sity of pressure [facility] Diastolic blood 2023-01-07 16:39:00 74 mm[Hg] Unive rsity of pressure [facility] Heart rate 2023-01-07 16:39:00 88 /min [facility] [place] [facility] Body temperature 2023-01-07 16:39:00 36.67 [facility] Respiratory rate 2023-01-07 16:39:00 20 /min [facility] Body weight 2023-01-07 16:39:00 58.7 kg [facility] [place] [facility] BMI 2023-01-07 16:39:00 22.93 kg/m2 Universi ty [facility] MD [facility] Oxygen saturation in 2022-07-14 14:29:29 97 /min University of Arterial blood by Luis nicole Pulse oximetry [facility] Body height 2022-07-12 22:08:00 160 cm Universi ty [facility] MD [facility] Systolic (mm Hg) 2022-05-18 17:04:00 Keanu rial [place] Diastolic (mm Hg) 2022-05-18 17:04:00 Mem orial [place] Heart Rate 2022-05-18 17:04:00 [facility] Height 2022-05-18 17:04:00 5 [ft_i] [facility] Weight 2022-05-18 17:04:00 [facility] BMI Calculated 2022-05-18 17:04:00 Memori al [place] Systolic (mm Hg) 2021-12-04 19:55:00 Keanu rial [place] Diastolic (mm Hg) 2021-12-04 19:55:00 Mem orial [place] Heart Rate 2021-12-04 19:55:00 [facility] [place] Respitory Rate 2021-12-04 19:55:00 Memori al [place] Height 2021-12-04 19:55:00 160.02 cm [facility] [place] Weight 2021-12-04 19:55:00 [facility] [place] BMI Calculated 2021-12-04 19:55:00 Memori al [place] Systolic (mm Hg) 2021-11-05 19:35:00 Keanu rial [place] Diastolic (mm Hg) 2021-11-05 19:35:00 Mem orial [facility] Heart Rate 2021-11-05 19:35:00 [facility] Respitory Rate 2021-11-05 19:35:00 Memori [facility] [place] Height 2021-11-05 19:35:00 160.02 cm [facility] [place] Weight 2021-11-05 19:35:00 [facility] [place] BMI Calculated 2021-11-05 19:35:00 Memori al [place] Systolic (mm Hg) 2021-02-05 15:45:00 Keanu rial [facility] Diastolic (mm Hg) 2021-02-05 15:45:00 Mem orial [place] Heart Rate 2021-02-05 15:45:00 [facility] [place] Respitory Rate 2021-02-05 15:45:00 Memori al [place] Height 2021-02-05 15:45:00 160.02 cm [facility] Weight 2021-02-05 15:45:00 [facility] [place] BMI Calculated 2021-02-05 15:45:00 Memori al [place] Systolic (mm Hg) 2020-11-04 14:58:00 Keanu rial [facility] Diastolic (mm Hg) 2020-11-04 14:58:00 Mem orial [place] Heart Rate 2020-11-04 14:58:00 [facility] Respitory Rate 2020-11-04 14:58:00 Memori al [place] Height 2020-11-04 14:58:00 162.56 cm [facility] [place] Weight 2020-11-04 14:58:00 [facility] [place] BMI Calculated 2020-11-04 14:58:00 Memori al [place] Systolic (mm Hg) 2020-09-03 13:30:00 Keanu rial [place] Diastolic (mm Hg) 2020-09-03 13:30:00 Mem orial [facility] Heart Rate 2020-09-03 13:30:00 [facility] Respitory Rate 2020-09-03 13:30:00 Memori al [place] Weight 2020-09-03 13:30:00 [facility] Systolic (mm Hg) 2020-08-20 16:01:00 Keanu rial [facility] Diastolic (mm Hg) 2020-08-20 16:01:00 Mem orial [facility] Heart Rate 2020-08-20 16:01:00 [facility] [place] Respitory Rate 2020-08-20 16:01:00 Memori al [place] Height 2020-08-20 16:01:00 162.56 cm [facility] [place] Weight 2020-08-20 16:01:00 [facility] BMI Calculated 2020-08-20 16:01:00 Memori al [facility] Systolic (mm Hg) 2018-11-27 16:16:00 Keanu rial [place] Diastolic (mm Hg) 2018-11-27 16:16:00 Mem orial [place] Weight 2018-11-27 16:16:00 [facility] BMI Calculated 2018-11-27 16:16:00 Memori al [facility] Heart Rate 2018-11-27 16:16:00 [facility] Height 2018-11-27 16:16:00 167.64 cm [facility] Procedures Procedure Date / Time Performing Clinician Source Performed HEMOGLOBIN 2023-03-09 11:12:00 [facility] TRANSFUSE PACKED RBC 2023-03-09 08:22:[address] [facility] PREPARE PACKED RBC 2023-03-09 08:12:45 Catalina Rosales [facility] TRANSFUSE PACKED RBC 2023-03-09 04:23:00 Will Stratton [facility] PREPARE PACKED RBC 2023-03-09 04:18:05 Will Stratton [facility] CRITICAL CARE 2023-03-09 02:42:53 [place] [facility] TRANSFUSE PACKED RBC 2023-03-09 00:49:00 Will Stratton [facility] US DUPLEX VENOUS ARM 2023-03-09 00:29:13 Will Stratton [facility] RIGHT - BY VASCULAR LAB [facility] LACTIC ACID WHOLE BLOOD 2023-03-08 23:14:[address] [facility] ACTIVATED PARTIAL 2023-03-08 21:52:00 Will Stratton [facility] THRMPLAS MASON [facility] CBC WITH DIFF 2023-03-08 21:26:00 Will Stratton [facility] BLOOD CULTURE SCREEN 2023-03-08 20:27:00 Will Stratton [facility] TROPONIN I 2023-03-08 20:27:00 Will Stratton [facility] COMP. METABOLIC PANEL 2023-03-08 20:27:00 Will Stratton [facility] ([id number]) Medical Ruby PROTHROMBIN TIME / INR 2023-03-08 20:27:00 Will Stratton [facility] HB ABO GROUPING 2023-03-08 20:27:00 Viral Will [facility] N-TERMINAL PRO-BNP 2023-03-08 20:27:00 Will Stratton [facility] LACTIC ACID WHOLE BLOOD 2023-03-08 20:20:[address] [facility] AUTHORIZATION FOR RELEASE 2022-08-12 05:01:00 Doctor Zamarripa [facility] [place] [facility] AUTHORIZATION FOR RELEASE 2022-08-02 06:01:00 Doctor Zamarripa [facility] Name Medical Branch AUTHORIZATION FOR RELEASE 2022-07-23 06:01:00 Doctor Watkinsalec [facility] Name Medical Ruby PETCT SUBSEQUENT 2022-07-12 23:57:34 Felicitas Matos [facility] TREATMENT STRATEGY MD German Ng [facility] AUTHORIZATION FOR RELEASE 2022-07-12 06:01:00 Doctor Watkinsalec [facility] Name Medical Ruby AUTHORIZATION FOR RELEASE 2022-06-28 06:01:00 Doctor Zamarripa [facility] Name Medical Branch INSURANCE CORRESPONDENCE 2022-03-01 05:01:00 Doctor Zamarripa [facility] Name [facility] CONSENT/REFUSAL FOR 2022-01-31 22:42:[address] [facility] DIAGNOSIS AND TREATMENT [place] [facility] URINALYSIS 2022-01-19 02:19:00 Enio Patel [facility] DUPLEX VENOUS LEG RIGHT - 2022-01-19 01:35:59 Enio Patel [facility] BY VASCULAR LAB [facility] CT THORAX WO CONTRAST 2022-01-19 01:33:00 [facility] COMP. METABOLIC PANEL 2022-01-19 00:27:[address] [facility] ([id number]) [facility] CBC WITH DIFF 2022-01-19 00:27:00 Enio Patel [facility] D-DIMER 2022-01-19 00:27:00 Enio Patel [facility] CONSENT/REFUSAL FOR 2022-01-18 23:05:23 [facility] [place] [facility] DIAGNOSIS AND TREATMENT [place] [facility] Hysterectomy 2017-03-30 00:00:00 [facility] Plan of Care Planned Activity Planned Date Details Comments Source Future Scheduled 2023-03-30 COVID-19 Vaccination [facility] Test 15:49:20 (#1) [code = COVID-19 MD And jessica Cancer Vaccination (#1)] Center Future Scheduled 2023-03-16 [facility] Test 17:07:07 malignant neoplasm of colon (procedure) [code = 980338952] Future Scheduled 2023-03-16 Scre[facility] for [facility] Test 17:07:07 malignant neoplasm of colon (procedure) [code = 972874648] Future Scheduled 2023-03-16 [facility] Test 17:07:07 malignant neoplasm of colon (procedure) [code = 627954002] Future Scheduled 2023-03-16 COVID-19 VACCINE (#1) [facility] Test 17:07:07 [code = COVID-19 VACCINE (#1)] Future Scheduled 2023-03-16 Pneumococcal Vaccine: [facility] Test 17:07:07 Pediatrics (0 to 5 Years) and At-Risk Patients (6 to 64 Years) (1 - PCV) [code = Pneumococcal Vaccine: Pediatrics (0 to 5 Years) and At-Risk Patients (6 to 64 Years) (1 - PCV)] Future Scheduled 2023-03-16 DIABETES: RETINAL EYE [facility] Test 17:07:07 EXAM [code = DIABETES: RETINAL EYE EXAM] Future Scheduled 2023-03-16 DIABETIC FOOT EXAM [facility] Test 17:07:07 [code = DIABETIC FOOT EXAM] Future Scheduled 2023-03-16 Hepatitis C screening [facility] Test 17:07:07 (procedure) [code = 583380716] Future Scheduled 2023-03-16 Screening for [facility] Test 17:07:07 malignant neoplasm of cervix (procedure) [code = 552995903] Future Scheduled 2023-03-16 BREAST CANCER [facility] Test 17:07:07 SCREENING [code = BREAST CANCER SCREENING] Future Scheduled 2023-03-16 Screening for [facility] Test 17:07:07 malignant neoplasm of colon (procedure) [code = 684269886] Future Scheduled 2023-03-16 Screening for [facility] Test 17:07:07 malignant neoplasm of colon (procedure) [code = 949204307] Future Scheduled 2023-03-16 SHINGLES VACCINES (1 Met [facility] Test 17:07:07 of 2) [code = SHINGLES VACCINES (1 of 2)] Future Scheduled 2023-03-16 INFLUENZA VACCINE [facility] Test 17:07:07 (#1) [code = INFLUENZA VACCINE (#1)] Future Scheduled 2023-03-16 RSV VACCINES > 60 YR [facility] Test 17:07:07 (1 - 1-dose 60+ series) [code = RSV VACCINES > 60 YR (1 - 1-dose 60+ series)] Future Scheduled 2023-03-11 COVID-19 Vaccination [facility] Test 08:56:58 (#1) [code = COVID-19 And jessica Cancer Vaccination (#1)] Center Encounters Start End Encounter Admission Attending Care Care Encounter Source Date/Time Date/Time Type Type Clinicians Facility Department ID 2023-01-21 Outpatient Regalado, [facility] [id number] Common 08:59:00 Elpidio [id number] [facility] 2022-11-11 Outpatient Regalado, [facility] [id number] Common 08:45:00 Elpidio [id number] [facility] 2022-08-24 Outpatient Regalado, [facility] [id number] Common 14:47:01 Elpidio 11508 [facility] 2022-07-31 Outpatient SYSTEM, [facility] [id number] 08:50:07 PROVIDER Morriseloisa card 2022-06-04 Outpatient SYSTEM, [facility] [id number] 12:45:48 PROVIDER Morris card 2022-03-08 Outpatient SYSTEM, [facility] BECKI [id number] 08:09:18 PROVIDER Morris card 2022-01-15 Outpatient EL SILAS, [facility] COVID-19 [id number] 10:37:48 ATIF card 2021-10-14 Outpatient Regalado, STLMLC STL[facility]C [id number] Common 10:34:03 Elpidio [facility] 2021-08-20 Outpatient Regalado, STLMLC STLMLC [id number] Common 11:10:01 Elpidio [facility] 2021-06-24 Outpatient Regalado, STLMLC STLMLC [id number] Common 13:33:16 Elpidio [facility] 2021-06-24 Outpatient Regalado, STLMLC STLMLC [id number] Common 13:18:04 Elpidio 11550 [facility] 2021-06-24 Outpatient Regalado, STLMLC STLMLC [id number] Common 11:58:02 Elpidio [id number] [facility] 2021-06-24 Outpatient Regalado, STLMLC STLMLC [id number] Common 11:57:35 Elpidio [id number] [facility] 2021-06-24 Outpatient Regalado, STLMLC STLMLC [id number] Common 11:57:20 Elpidio 88087 [facility] 2021-06-24 Outpatient Regalado, STLMLC STLMLC [id number] Common 11:56:08 Elpidio [id number] [facility] 2023-03-28 2023-03-28 Orders Saul, 1.2.840.1 [id number] Univers 00:00:00 00:00:00 Only Lexi Dey 17552.1.1 ity of 3.412.2.7 [place] .[id number] .8 [facility] 2023-03-24 2023-03-24 Ambulatory IE MNA [id number] Memoria 14:00:00 14:00:00 Pre-Reg Neurology 12 l [place] 2023-03-24 2023-03-24 Outpatient VERONICAIE CAM [id number] Memoria 09:00:00 09:00:00 12 betsey Gonzalez 2023-03-24 2023-03-24 Outpatient MANUEL Larson MEENASCHMARIANNE [id number] 09:00:00 09:00:00 Herbert [place] 2023-03-11 2023-03-11 Telephone [place], 1.2.840.1 [id number] Univers 00:00:00 00:00:00 Yamilet 53075.1.1 it y of 3.412.2.7 [place] .[id number] MD Traylor8 [facility] 2023-03-11 2023-03-11 Telephone [place] 1.2.840.1 [id number] Univers 00:00:00 00:00:00 Yamilet 05690.1.1 it y of 3.412.2.7 [place] .3.438702 MD Traylor8 [facility] 2023-03-08 2023-03-09 Inpatient X KIMANI [facility] SELINA [id number] Univers 15:04:00 06:52:00 RADAMES costa [facility] 2023-03-08 2023-03-09 [facility] 1.2.840.1 [id number] Univers 15:04:00 06:52:00 Encounter Radames Harman CALLIHAM 350.1.13. 10 ity of [place] 4.2.7.2.686 [facility] [id number] [place] [address] Branch 2023-01-07 2023-01-07 Follow-Up DAYDAY Matos, 1.2.840.1 [id number] Univers 11:30:00 12:38:33 Felicitas 43664.1.1 ity of 3.412.2.7 [place] .[id number] MD Traylor8 [facility] 2023-01-07 2023-01-07 Follow-Up Shawna, 1.2.840.1 [id number] Univers 11:30:00 12:38:33 Felicitas 65224.1.1 ity of 3.412.2.7 [place] .3.516297 MD Blood [facility] 2023-01-07 2023-01-07 Travel 1.2.840.1 [id number] Univers 00:00:00 00:00:00 08921.1.1 350.1.13.41 ity of 3.412.2.[place].698 [place].4729[place] 084.8 MD [facility] 2023-01-07 2023-01-07 Travel 1.2.840.1 1.2.806.861 0921 [id number] Univers 00:00:00 00:00:00 44061.1.1 350.1.13.41 ity of 3.412.2.[place].698 [place] .3.556034 084.8 MD [facility] 2022-12-28 2022-12-28 Reanna Hughes, 1.2.840.1 [id number] Univers 00:00:00 00:00:00 Only Lexi Golden 73703.1.1 ity of 3.412.2.7 [place] .3.179403 MD [facility] 2022-12-28 2022-12-28 Reanna Hughes, 1.2.840.1 [id number] 0609 Univers 00:00:00 00:00:00 Only Lexi Golden 28957.1.1 ity of 3.412.2.7 [place] .3.098502 MD [facility] 2022-10-05 2022-10-05 Follow-Up DAYDAY Matos, 1.2.840.1 [id number] [facility] 09:30:00 10:00:00 Felicitas 58502.1.1 ity of 3.412.2.7 [place] .3.166603 MD [facility] 2022-10-05 2022-10-05 Follow-Up Shawna, 1.2.840.1 [id number] Univers 09:30:00 10:00:00 Felicitas 41948.1.1 ity of 3.412.2.7 [place] .3.501674 MD [facility] 2022-10-05 2022-10-05 Travel 1.2.840.1 1.2.982.586 1174 [id number] Univers 00:00:00 00:00:00 82850.1.1 350.1.13.41 ity of 3.412.2.[place].698 [place] .3.358[place] 084.8 MD [facility] 2022-10-05 2022-10-05 Travel 1.2.840.1 1.2.307.529 0967 [id number] Univers 00:00:00 00:00:00 19669.1.1 350.1.13.41 ity of 3.412.2.[place].698 [place]3.895801 084.8 MD [facility] 2022-09-06 2022-09-06 Reanna Hughes, 1.2.840.1 [id number] 9912 Univers 00:00:00 00:00:00 Only Lexi M 87308.1.1 ity of 3.412.2.7 [place] .3.133188 MD [facility] 2022-09-06 2022-09-06 Reanna Hughes, 1.2.840.1 [id number] Univers 00:00:00 00:00:00 Only Lexi M 76221.1.1 ity of 3.412.2.7 [place] .3.661118 MD [facility] 2022-08-24 2022-08-24 OFFICE [facility] [id number] Co mmon 00:00:00 00:00:00 VISIT Spirit ESTAB PT - CHI LEVEL 3 [facility] 2022-08-20 2022-08-20 (TEL) [facility] [id number] Co mmon 00:00:00 00:00:00 [facility] 2022-08-13 2022-08-13 Orders Mackenney, 1.2.840.1 [id number] Univers 00:00:00 00:00:00 Only Roseline 73357.1.1 ity of 3.412.2.7 [place] .3.897839 MD [facility] 2022-08-13 2022-08-13 Orders Cuauhtemoc, 1.2.840.1 [id number] Univers 00:00:00 00:00:00 Only Ngoc 40567.1.1 ity of 3.412.2.7 [place] .3.859236 MD [facility] 2022-08-13 2022-08-13 Orders Mackenney, 1.2.840.1 [id number] Univers 00:00:00 00:00:00 Only Roseline 16376.1.1 ity of 3.412.2.7 [place] .3.044225 MD [facility] 2022-08-13 2022-08-13 Orders Cuauhtemoc, 1.2.840.1 [id number] Univers 00:00:00 00:00:00 Only Ngoc 86129.1.1 ity of 3.412.2.7 [place] .3.744430 MD [facility] 2022-08-12 2022-08-12 Orders Doctor IQBAL 1.2.840.114 [id number] Univers 00:00:00 00:00:00 Only Unassigned, JUAN C 350.1.13.10 ity of [place] [facility] 4.2.7.2.686 Sid as [phone] [facility] abdirizak 009 Branch 2022-08-02 2022-08-02 Orders Doctor IQBAL 1.2.840.114 [id number] Univers 00:00:00 00:00:00 Only Unassigned, JUAN C 350.1.13.10 ity of [place] [facility] 4.2.7.2.686 Sid as [phone] [facility] abdirizak 009 Branch 2022-07-23 2022-07-23 Orders Doctor FARIDA 1.2.840.114 [id number] Univers 00:00:00 00:00:00 Only Unassigned, JUAN C 350.1.13.10 ity of [place] [facility] 4.2.7.2.686 Sid as [phone] [facility] 009 Branch 2022-07-14 2022-07-14 [facility], 1.2.840.1 [id number] 058 [id number] Univers 07:43:38 23:59:00 Encounter Felicitas 38285.1.1 it y of 3.412.2.7 [place] .3.713679 MD [facility] 2022-07-14 2022-07-14 [facility], 1.2.840.1 [id number] [id number] Univers 07:43:38 23:59:00 Encounter Felicitas 16632.1.1 it y of 3.412.2.7 [place] .3.123687 MD [facility] 2022-07-14 2022-07-14 Travel 1.2.840.1 1.2.375.724 1392 [id number] Univers 00:00:00 00:00:00 06625.1.1 350.1.13.41 ity of 3.412.2.7 [place]7.3.698 [place] .3.609696 084.8 MD [facility] 2022-07-14 2022-07-14 Travel 1.2.840.1 1.2.043.111 3719 046552 Univers 00:00:00 00:00:00 57376.1.1 350.1.13.41 ity of 3.412.2.7 [place].7.3.698 [place] .3.028694 084Kymberly8 MD [facility] 2022-07-12 2022-07-12 Ancillary [facility], 1.2.840.1 [id number] Univers 16:30:00 19:00:00 Procedure Felicitas 62908.1.1 it y of 3.412.2.7 [place] .3.448644 MD [facility] 2022-07-12 2022-07-12 Ancillary Goepfert, 1.2.840.1 [id number] 11 [id number] Univers 16:30:00 19:00:00 Procedure Felicitas 91730.1.1 it y of 3.412.2.7 [place] .3.326232 MD [facility] 2022-07-12 2022-07-12 Travel 1.2.840.1 1.2.581.390 4318 [id number] Univers 00:00:00 00:00:00 92059.1.1 350.1.13.41 ity of 3.412.2.7 [place]7.3.698 [place] .3.199583 084.8 MD [facility] 2022-07-12 2022-07-12 Orders Doctor FARIDA 1.2.840.114 [id number] Univers 00:00:00 00:00:00 Only Unassigned, JUAN C 350.1.13.10 ity of [facility] [facility] 4.2.7.2.686 Sid as [phone] [place] [address] Branch 2022-07-12 2022-07-12 Travel 1.2.840.1 1.2.798.353 8686 242576 Univers 00:00:00 00:00:00 10108.1.1 350.1.13.41 ity of 3.412.2.[place].3.698 [place] .3.065782 084.8 MD [facility] 2022-07-09 2022-07-09 Telephone Saul, 1.2.840.1 [id number] [id number] Univers 00:00:00 00:00:00 Sarah 72975.1.1 ity of 3.412.2.7 [place] .3.221541 MD [facility] 2022-07-09 2022-07-09 Telephone Saul, 1.2.840.1 [id number] [id number] Univers 00:00:00 00:00:00 Sarah 04434.1.1 ity of 3.412.2.7 [place] .3.089921 MD [facility] 2022-07-08 2022-07-08 Telephone Kevin LAAIDAN 1.2.482.749 1354 99600 Univers 00:00:00 00:00:00 Elzbieta HARPER 350.1.13.10 i ty of [place] [phone] Al dical NAL 085 Branch [facility] 2022-06-28 2022-06-28 Orders Doctor FARIDA 1.2.840.114 [id number] Univers 00:00:00 00:00:00 Only Unassigned, JUAN C 350.1.13.10 ity of [facility] [facility] 4.2.7.2.686 Sid as [id number] [place] [address] Branch 2022-06-25 2022-06-25 (TEL) [facility] [id number] Co mmon 00:00:00 00:00:00 [facility] 2022-06-22 2022-06-22 Orders Goepfert, 1.2.840.1 [id number] [id number] Univers 00:00:00 00:00:00 Only Felicitas 75037.1.1 ity of 3.412.2.7 [place] .3.764352 .8 [facility] 2022-06-22 2022-06-22 Orders Goepfert, 1.2.840.1 [id number] 1101 [id number] Univers 00:00:00 00:00:00 Only Felicitas 85389.1.1 ity of 3.412.2.7 [place] .3.076450 MD [facility] 2022-06-20 2022-06-20 (WEB) [facility] [id number] Co mmon 00:00:00 00:00:00 [facility] 2022-05-18 2022-05-19 Outpatient MHIE MNA [id number] Colleen 17:00:00 05:59:59 Neurology 11 l Courtney Gonzalez 2022-05-18 2022-05-19 Outpatient MHIE MNA [id number] Memoria 17:00:00 05:59:59 Neurology 11 betsey Gonzalez 2022-05-18 2022-05-18 Outpatient MANUEL Larson [id number] 11:00:00 23:59:59 Herbert Angeles 2022-05-18 2022-05-18 Outpatient CAM LEVY [id number] Memoria 11:00:00 11:00:00 11 betsey Gonzalez 2022-05-17 2022-05-17 (WEB) STLMLC STLMLC [id number] Co mmon 00:00:00 00:00:00 [facility] 2022-05-17 2022-05-17 (WEB) STLMLC STLMLC [id number] Co mmon 00:00:00 00:00:00 [facility] 2022-05-03 2022-05-03 Documentat Stone, 1.2.840.1 [id number] Univers 00:00:00 00:00:00 ion Catalina 35532.1.1 ity of [place] 3.412.2.7 [place] .3.679250 MD [facility] 2022-05-03 2022-05-03 Documentat Stone, 1.2.840.1 [id number] Univers 00:00:00 00:00:00 ion Catalina 20419.1.1 ity of [place] 3.412.2.7 [place] .3.386085 MD [facility] 2022-04-21 2022-04-21 Documentat Kiran 1.2.840.1 [id number] Univers 00:00:00 00:00:00 ion Sheree C 20109.1.1 it y of 3.412.2.7 [place] .3.334139 .8 [facility] 2022-04-21 2022-04-21 Documentat Kiran, 1.2.840.1 [id number] Univers 00:00:00 00:00:00 ion Sheree C 95594.1.1 it y of 3.412.2.7 [place] .3.751962 MD [facility] 2022-04-16 2022-04-16 Documentat Kiran, 1.2.840.1 [id number] Univers 00:00:00 00:00:00 ion Sheree C 73078.1.1 it y of 3.412.2.7 [place] .3.496403 MD [facility] 2022-04-16 2022-04-16 Reanna Hughes, 1.2.840.1 [id number] Univers 00:00:00 00:00:00 Only Lexi M 45817.1.1 ity of 3.412.2.7 [place] .3.984079 MD [facility] 2022-04-16 2022-04-16 Documentat Kiran, 1.2.840.1 [id number] Univers 00:00:00 00:00:00 ion Sheree C 11927.1.1 it y of 3.412.2.7 [place] .3.750728 MD [facility] 2022-04-16 2022-04-16 Reanna Hughes, 1.2.840.1 [id number] Univers 00:00:00 00:00:00 Only Lexi M 90964.1.1 ity of 3.412.2.7 [place] .3.660010 MD [facility] 2022-04-14 2022-04-14 [facility] .1 [id number] Univers 11:00:00 23:59:00 Toby Tom 87852.1.1 ity of 3.412.2.7 [place] .3.955319 MD [facility] 2022-04-14 2022-04-14 [facility] .1 [id number] Univers 11:00:00 23:59:00 Toby Tom 58423.1.1 ity of 3.412.2.7 [place] .3.751690 MD [facility] 2022-04-14 2022-04-14 [facility] Felicitas 1.2.840.1 [id number] Univers 10:04:47 10:59:00 Encounter Josef Conti 63531.1.1 ity of 3.412.2.7 [place] .3.977993 MD [facility] 2022-04-14 2022-04-14 [facility] HalperlaFelicitas 1.2.840.1 [id number] Univers 10:04:47 10:59:00 Encounter Josef Conti 36579.1.1 ity of 3.412.2.7 [place] .3.219196 MD [facility] 2022-04-14 2022-04-14 Telephone Milena, 1.2.840.1 [id number] [id number] Univers 00:00:00 00:00:00 Yamilet Mendoza 29128.1.1 ity of 3.412.2.7 [place] .3.167730 MD [facility] 2022-04-14 2022-04-14 Orders Saul, 1.2.840.1 [id number] Univers 00:00:00 00:00:00 Only Lexi Dey 07500.1.1 ity of 3.412.2.7 [place] .3.495502 MD [facility] 2022-04-14 2022-04-14 Travel 1.2.840.1 1.2.645.619 6807 [id number] Univers 00:00:00 00:00:00 06924.1.1 350.1.13.41 ity of 3.412.2.7 [place].7.3.698 [place] .3.680436 084.8 MD [facility] 2022-04-14 2022-04-14 Telephone Milena 1.2.840.1 [id number] Univers 00:00:00 00:00:00 Yamilet E 49915.1.1 ity of 3.412.2.7 [place] .3.170309 MD [facility] 2022-04-14 2022-04-14 Reanna Hughes, 1.2.840.1 [id number] Univers 00:00:00 00:00:00 Only Lexi M 89673.1.1 ity of 3.412.2.7 [place] .3.721608 MD [facility] 2022-04-14 2022-04-14 Travel 1.2.840.1 1.2.549.571 1007 [id number] Univers 00:00:00 00:00:00 32282.1.1 350.1.13.41 ity of 3.412.2.7 [place]7.3.698 [place] .3.715647 084.8 MD [facility] 2022-04-13 2022-04-13 Reanna Hughes, 1.2.840.1 [id number] 4768 Univers 00:00:00 00:00:00 Only Lexi M 93521.1.1 ity of 3.412.2.7 [place] .3.686867 MD [facility] 2022-04-13 2022-04-13 Reanna Hughes, 1.2.840.1 [id number] Univers 00:00:00 00:00:00 Only Lexi M 08081.1.1 ity of 3.412.2.7 [place] .3.768193 MD [facility] 2022-04-13 2022-04-13 Reanna Hughes, 1.2.840.1 [id number] Univers 00:00:00 00:00:00 Only Lexi M 28215.1.1 ity of 3.412.2.7 [place] .3.384094 MD [facility] 2022-04-13 2022-04-13 Reanna Hughes, 1.2.840.1 [id number] Univers 00:00:00 00:00:00 Only Lexi M 81534.1.1 ity of 3.412.2.7 [place] .3.986391 MD [facility] 2022-04-13 2022-04-13 Orders Saul, 1.2.840.1 [id number] Univers 00:00:00 00:00:00 Only Lexi Dey 71264.1.1 ity of 3.412.2.7 [place] .3.606995 MD [facility] 2022-04-13 2022-04-13 Orders Saul, 1.2.840.1 [id number] Univers 00:00:00 00:00:00 Only Lexi Dey 96350.1.1 ity of 3.412.2.7 [place] .3.540921 MD [facility] 2022-04-12 2022-04-12 Telephone Alexandra, 1.2.840.1 [id number] 1099 [id number] Univers 00:00:00 00:00:00 Lashawn N 49476.1.1 ity of 3.412.2.7 [place] .3.002965 MD [facility] 2022-04-12 2022-04-12 Orders Alexandra, 1.2.840.1 [id number] Univers 00:00:00 00:00:00 Only Lashawn N 28246.1.1 ity of 3.412.2.7 [place] .3.425688 MD [facility] 2022-04-12 2022-04-12 Telephone Alexandra, 1.2.840.1 [id number] [id number] Univers 00:00:00 00:00:00 Lashawn N 07168.1.1 ity of 3.412.2.7 [place] .3.146240 MD [facility] 2022-04-12 2022-04-12 Orders Alexandra, 1.2.840.1 [id number] Univers 00:00:00 00:00:00 Only Lashawn N 92138.1.1 ity of 3.412.2.7 [place] .3.708002 MD [facility] 2022-04-08 2022-04-08 Orders Alexandra, 1.2.840.1 [id number] Univers 00:00:00 00:00:00 Only Lashawn N 38722.1.1 ity of 3.412.2.7 [place] .3.550955 MD [facility] 2022-04-08 2022-04-08 Orders Alexandra, 1.2.840.1 [id number] Univers 00:00:00 00:00:00 Only Lashawn N 37799.1.1 ity of 3.412.2.7 [place] .3.178614 MD [facility] 2022-04-07 2022-04-07 Orders Alexandra, 1.2.840.1 [id number] Univers 00:00:00 00:00:00 Only Lashawn N 09121.1.1 ity of 3.412.2.7 [place] .3.226481 MD [facility] 2022-04-07 2022-04-07 Orders Alexandra, 1.2.840.1 [id number] Univers 00:00:00 00:00:00 Only Lashawn N 11723.1.1 ity of 3.412.2.7 [place] .3.172537 MD [facility] 2022-04-06 2022-04-06 Refrj Mireles, 1.2.840.1 [id number] [id number] Univers 00:00:00 00:00:00 Arely Ng 68695.1.1 ity of 3.412.2.7 [place] .3.900482 MD [facility] 2022-04-06 2022-04-06 Orders Kyler, 1.2.840.1 [id number] Univers 00:00:00 00:00:00 Only Dwight 49626.1.1 ity of 3.412.2.7 [place] .3.244839 MD [facility] 2022-04-06 2022-04-06 Orders Shawna, 1.2.840.1 [id number] 1099 [id number] Univers 00:00:00 00:00:00 Only Felicitas 29398.1.1 ity of 3.412.2.7 [place] .3.999604 MD [facility] 2022-04-06 2022-04-06 Refrj Mireles, 1.2.840.1 [id number] 1099 [id number] Univers 00:00:00 00:00:00 Arely Ng 66009.1.1 ity of 3.412.2.7 [place] .3.074046 MD [facility] 2022-04-06 2022-04-06 Orders Kyler, 1.2.840.1 [id number] Univers 00:00:00 00:00:00 Only Dwight 37741.1.1 ity of 3.412.2.7 [place] .3.999812 MD [facility] 2022-04-06 2022-04-06 Reanna Matos, 1.2.840.1 [id number] [id number] Univers 00:00:00 00:00:00 Only Felicitas 42724.1.1 ity of 3.412.2.7 [place] .3.334017 MD [facility] 2022-03-02 2022-03-02 Outpatient DAYDAY MATOS MDA [facility] [id number] 10:28:00 10:28:00 FELICITAS card 2022-03-01 2022-03-01 Orders Doctor IQBAL 1.2.840.114 [id number] Univers 00:00:00 00:00:00 Only Unassigned, JUAN C 350.1.13.10 ity of [place] [facility] 4.2.7.2.686 Sid as [id number] [facility] abdirizak 009 Branch 2022-02-26 2022-02-26 (TEL) [facility] STLMLC [id number] Co mmon 00:00:00 00:00:00 [facility] 2022-02-22 2022-02-22 OFFICE [facility] [id number] Co mmon 00:00:00 00:00:00 VISIT EST Spir it PT LEVEL 3 - [facility] 2022-02-21 2022-02-21 (WEB) STLMLC STLMLC [id number] Co mmon 00:00:00 00:00:00 [facility] 2022-02-16 2022-02-16 Outpatient DAYDAY GARCIA MDA BECKI [id number] 11:41:03 11:41:13 ELISE card 2022-01-31 2022-01-31 [facility] [id number] Univers 17:50:00 18:35:00 CATALINA ity of [facility] 2022-01-31 2022-01-31 Emergency [facility] 1.2.840.114 [id number] Univers 17:50:00 18:35:00 Catalina HARPER 350.1.13.10 ity of [place] 4.2.7.2.686 [facility] [id number] [facility] [address] 2022-01-31 2022-01-31 Orders Doctor FARIDA 1.2.840.114 [id number] Univers 00:00:00 00:00:00 Only Unassigned, JUAN C 350.1.13.10 ity of [facility] 4.2.7.2.686 [facility] [place] [id number] [facility] [address] Branch 2022-01-29 2022-01-29 Outpatient DAYDAY GARCIA BECKI CONNELL [id number] 12:20:20 14:16:18 ELISE card 2022-01-28 2022-01-28 Outpatient DAYDAY GARCIA BECKI CONNELL [id number] 13:37:48 13:37:57 ELISE card 2022-01-20 2022-01-26 Inpatient ER SIMBAALLYSON CONNELL GI Med [id number] 10:08:00 16:33:00 Jose BENTLEY 2022-01-26 2022-01-26 Inpatient EL SIMBE CONNELL MDA [id number] 05:42:49 06:01:11 Jose BENTLEY 2022-01-25 2022-01-25 Inpatient DAYDAY GARCIA BECKI CONNELL [id number] 12:12:23 12:12:26 ELISE card 2022-01-24 2022-01-24 Inpatient EL DOT, ED MDA MDA [id number] 15:30:48 15:35:17 Morris o n 2022-01-22 2022-01-22 Inpatient EL DOT, ED MDA MDA [id number] 12:18:44 13:10:17 Morris card 2022-01-22 2022-01-22 Inpatient DAYDAY JAMISON, MDA MDA [id number] 12:18:49 13:10:13 PATRICIO Garcia so n 2022-01-20 2022-01-20 Ambulatory nullFlavo MNA [id number] Memoria 15:15:00 15:15:00 Pre-Reg r Neurology 10 l Tyler Carlos 2022-01-20 2022-01-20 Ambulatory nullFlavo MNA [id number] Memoria 15:15:00 15:15:00 Pre-Reg r Neurology 10 l Courtney Carlos 2022-01-20 2022-01-20 Outpatient MHIE MHIE [id number] Memoria 10:15:00 10:15:00 10 l Carlos 2022-01-20 2022-01-20 Outpatient [facility] 130 [id number] 10:15:00 10:15:00 Herbert Maddie Angeles 2022-01-19 2022-01-19 Outpatient DAYDAY ROSEN MDA MDA [id number] 13:20:47 15:41:28 ATIF card 2022-01-19 2022-01-19 Outpatient DAYDAY GARCIA MDA MDA [id number] 07:21:27 07:21:27 ELISE card 2022-01-18 2022-01-18 Emergency X SOLEDAD [facility] ERT [id number] Univers 18:17:00 22:21:00 MARLON tello [facility] [place] [facility] 2022-01-18 2022-01-18 Emergency Patel Enio [facility] 1.2.840 .114 [id number] Univers 18:17:00 22:21:00 Marlon Rowe 350.1.13. 10 omer [facility] 4.2.7.2.686 [facility] [id number] [facility] [address] 2022-01-16 2022-01-16 Emergency X Nicole HUSSEIN [facility] ERT [id number] Univers 18:28:00 20:29:00 ity of [facility] 2022-01-16 2022-01-16 Emergency Nicole Hussein [facility] 1.2.840.114 [id number] Univers 18:28:00 20:29:00 Mary LEROY 350.1.13.10 i ty [facility] 4.2.7.2.686 [facility] [id number] [place] [address] Branch 2022-01-16 2022-01-16 Emergency X Nicole HUSSEIN [facility] ERT [id number] Univers 18:28:00 20:29:00 ity of [facility] 2022-01-16 2022-01-16 Orders Doctor FARIDA 1.2.840.114 [id number] Univers 00:00:00 00:00:00 Only Unassigned, JUAN C 350.1.13.10 ity of [place] [facility] 4.2.7.2.686 Sid as [id number] [facility] [address] 2022-01-14 2022-01-14 Telephone [facility] 1.2.840.114 [id number] Univers 00:00:00 00:00:00 Bety A PRIMARY 350.1.13.10 [place] [id number] Al dical [address] 2022-01-14 2022-01-14 Telephone [facility] 1.2.840.114 [id number] Univers 00:00:00 00:00:00 Btey A PRIMARY 350.1.13.10 [place] [phone] Al dical [address] 2022-01-13 2022-01-13 Outpatient DAYDAY CUMMINGS MDA MDA [id number] 15:12:21 16:13:07 GWENDOLYN card 2022-01-13 2022-01-13 Outpatient DAYDAY HENRY MDA MDA [id number] 16:05:39 16:09:44 STEPHANIE andersen n 2022-01-13 2022-01-13 Outpatient DAYDAY GARCIA, BECKI MDA [id number] 12:56:12 15:12:43 ELISE card 2022-01-13 2022-01-13 Outpatient EL BECKI MDA [id number] 12:12:57 12:51:56 Morris card 2022-01-13 2022-01-13 Telephone Gage [facility] 1.2.840.114 [id number] Univers 00:00:00 00:00:00 [facility] 350.1.13.10 ity [place] [id number] [facility] [address] 2022-01-11 2022-01-11 Telephone Gage [facility] 1.2.639.036 [id number] Univers 00:00:00 00:00:00 [facility] MULTISPEC 350.1.13.10 [place] [id number] [facility] [address] [facility] 2022-01-07 2022-01-07 Transition JOHN Carroll 1.2.840.114 [id number] Univers 00:00:00 00:00:00 of Care Sariah ZEPEDA 350.1.13.10 [place] [phone] [facility] [address] 2022-01-07 2022-01-07 Transition JOHN Carroll 1.2.840.114 [id number] Univers 00:00:00 00:00:00 of Care Sariah ZEPEDA 350.1.13.10 [place] [id number] [facility] [address] 2022-01-07 2022-01-07 Patient Doctor [facility] 1.2.840.114 [id number] Univers 00:00:00 00:00:00 Secure Msg Unassigned, MULTISPEC 350.1.13.10 [place] [phone] [facility] AND RANKIN [address] [facility] 2021-12-29 2022-01-06 [facility] Will Stratton 1.2.840.1 14 [id number] Univers 06:16:00 12:34:00 Encounter Nell Almonte 350.1 .13.10 ity [facility] 4.2.7.2.686 [place] Marcial Bety Lukas [phone] [place] [id number] Branch 2021-12-29 2022-01-06 Inpatient X MARCIAL [facility] SELINA [id number] Univers 06:16:00 12:34:00 BETY itsom [facility] 2022-01-03 2022-01-03 RefMichael Carrillo [facility] 1.2.840.114 [id number] Univers 00:00:00 00:00:00 [facility] 350.1.13.10 it y of [facility] 4.2.7.2.686 [facility] [phone] Al dical [address] 2021-12-30 2021-12-30 Outpatient EL MDA MDA [id number] MD 02:28:57 02:28:57 Morris o n 2021-12-30 2021-12-30 Outpatient EL MDA MDA [id number] MD 02:28:54 02:28:54 Morris o n 2021-12-30 2021-12-30 Outpatient EL MDA MDA [id number] MD 02:28:51 02:28:51 Morris o n 2021-12-30 2021-12-30 Outpatient EL MDA MDA [id number] MD 02:28:48 02:28:48 Morris o n 2021-12-30 2021-12-30 Outpatient EL MDA MDA [id number] MD 02:28:45 02:28:45 Morris o n 2021-12-29 2021-12-29 (TEL) STLMLC STLMLC [id number] Co mmon 00:00:00 00:00:00 [facility] 2021-12-25 2021-12-25 Outpatient R ELZBIETA GAONA [facility] 10 [id number] Univers 10:30:00 11:48:01 ELZBIETA GAONA i ty of [facility] 2021-12-25 2021-12-25 Office ITZEL Gaona 1.2.840.114 [id number] Univers 10:30:00 11:48:01 Visit Elzbieta HARPER 350.1.13.10 [place] [phone] Al dical NAL 085 [facility] 2021-12-24 2021-12-24 Orders Doctor FARIDA 1.2.840.114 [id number] Univers 00:00:00 00:00:00 Only Unassigned, JUAN C 350.1.13.10 ity of [facility] 4.2.7.2.686 Sid as [phone] [facility] [address] 2021-12-23 2021-12-23 Multidisci ARON Regalado 1.2.840.114 [id number] Univers 00:00:00 00:00:00 plinary Nekita H 350.1.13.10 it y of [facility] 4.2.7.2.686 [place] [phone] [facility] 080 Ruby 2021-12-22 2021-12-22 Telephone ITZEL Gaona 1.2.784.866 [id number] Univers 00:00:00 00:00:00 Elzbieta HARPER 350.1.13.10 i ty of [place] [phone] [facility] NAL 085 [facility] 2021-12-21 2021-12-21 Case FARIDA Gonzalez 1.2.840.114 [id number] Univers 00:00:00 00:00:00 Management Suly JUAN C 350.1.13.10 [facility] 4.2.7.2.686 [place] as [phone] [facility] 048 Ruby 2021-12-21 2021-12-21 Telephone Kevin LAAIDAN 1.2.754.416 [id number] Univers 00:00:00 00:00:00 Elzbieta HARPER 350.1.13.10 i [place] of [place] [phone] Al dical NAL 085 Branch BUILDING 2021-12-21 2021-12-21 OFFICE [facility]C [facility] [id number] Co mmon 00:00:00 00:00:00 VISIT EST Spir it PT LEVEL 3 - [facility] 2021-12-17 2021-12-17 (TEL) STLMLC STLMLC [id number] Co mmon 00:00:00 00:00:00 Spirit - [facility] 2021-12-16 2021-12-16 Case FARIDA Gonzalez 1.2.840.114 [id number] Univers 00:00:00 00:00:00 Management Suly JUAN C 350.1.13.10 [facility] 4.2.7.2.686 [place] [phone] [facility] 048 Branch 2021-12-15 2021-12-15 Transition JOHN Carroll 1.2.840.114 [id number] Univers 00:00:00 00:00:00 of Care Sariah ZEPEDA 350.1.13.10 ity [facility] [place] [id number] [facility] 403 Branch 2021-12-15 2021-12-15 FARIDA Garrison 1.2.840.114 [id number] Univers 00:00:00 00:00:00 Management Suly JUAN C 350.1.13.10 [facility] 4.2.7.2.686 [place] [phone] [facility] 048 Branch 2021-12-15 2021-12-15 Telephone SANDY Gaona 1.2.840.114 [id number] Univers 00:00:00 00:00:00 [facility] 350.1.13.10 i ty of [place] [id number] [facility] 084 Branch 2021-12-08 2021-12-14 Inpatient U DASH LAAIDAN [facility] [id number] Univers 09:01:00 20:21:00 TONY ity of [facility] 2021-12-08 2021-12-14 Hospital Lauren Wheeler 1.2.840.11 [id number] Univers 09:01:00 20:21:00 Encounter Fox Breen JUAN C 350.1.13. 10 ity of [facility] 4.2.7.2.686 [place] [phone] [facility] 086 Branch 2021-12-14 2021-12-14 Surgery MICHELLE Gaona 1.2.840.114 [id number] Univers 11:50:00 13:54:00 Elzbieta JUAN C 350.1.13.10 it y of [facility] 4.2.7.2.686 [place] as [id number] [facility] 103 Branch 2021-12-09 2021-12-09 Anesthesia Nohrn, 1.2.840.9 [id number] Univers 16:47:07 16:47:07 Event Madyson 76335.1.1 ity of 3.104.2.7 [place] .3.934981 Medica l .8 Branch 2021-12-08 2021-12-08 Travel 1.2.840.1 1.2.342.983 [id number] Univers 00:00:00 00:00:00 60270.1.1 350.1.13.10 ity of 3.104.2.7 4.[place].3.698 [place] .3.392934 084.8 Medica l .8 Branch 2021-12-08 2021-12-08 (WEB) [facility] [id number] Co mmon 00:00:00 00:00:00 [facility] 2021-12-04 2021-12-05 Outpatient nullFlavo MNA [id number] Memoria 19:45:00 04:59:59 r Neurology 09 l Courtney Gonzalez 2021-12-04 2021-12-05 Outpatient nullFlavo MNA [id number] Memoria 19:45:00 04:59:59 r Neurology 09 l Courtney Gonzalez 2021-12-04 2021-12-04 Outpatient MANUEL Larson [id number] 14:45:00 23:59:59 Herbert Angeles 2021-12-04 2021-12-04 [facility] [id number] Memoria 14:45:00 14:45:00 09 l Carlos 2021-11-30 2021-11-30 (WEB) [facility] [id number] Co mmon 00:00:00 00:00:00 Spirit - [facility] 2021-11-29 2021-11-29 Emergency X RIDDLE, [facility] ERT [id number] Univers 16:59:00 19:13:00 CHRISTOPHER it y of [facility] 2021-11-29 2021-11-29 Emergency [place], 1.2.840.0 [id number] Univers 16:59:00 19:13:00 Christmartiner 86578.1.1 ity of 3.104.2.7 [place] .3.114551 Medica l .8 Ruby 2021-11-29 2021-11-29 Travel 1.2.840.1 1.2.876.532 [id number] Univers 00:00:00 00:00:00 84911.1.1 350.1.13.10 ity of 3.104.2.7 4.2.7.3.698 [place] .3.543514 084.8 Medica l [address] [place] [address] 2021-11-28 2021-11-28 Britton Menard 1.2.840.2 [id number] Univers 15:30:00 15:50:00 [facility] 66245.1.1 ity of 3.104.2.7 [place] .3.174276 Medica l .8 Ruby 2021-11-28 2021-11-28 Urgent [place], 1.2.840.3 [id number] Univers 15:20:00 15:40:00 Care Britton 99224.1.1 ity of 3.104.2.7 [place] .3.102120 Medica l 8 Ruby 2021-11-28 2021-11-28 Outpatient Analisa NEVILLE [facility] [id number] Univers 15:30:00 15:30:00 BRITTON ity of [facility] 2021-11-28 2021-11-28 Outpatient [facility] [id number] Univers 15:20:00 15:20:00 BRITTON ity [facility] [place] [facility] 2021-11-28 2021-11-28 Orders Doctor 1.2.840.0 [id number] Univers 00:00:00 00:00:00 Only Unassigned, 20713.1.1 ity of [place] 3.104.2.7 [place] .3.199310 Medica l .8 Ruby 2021-11-28 2021-11-28 Travel 1.2.840.1 1.2.822.884 [id number] Univers 00:00:00 00:00:00 13047.1.1 350.1.13.10 ity of 3.104.2.7 4.2.7.3.698 [place] .3.328667 084.8 Medica l .8 Ruby 2021-11-26 2021-11-26 (WEB) [facility] [id number] Co mmon 00:00:00 00:00:00 [facility] 2021-11-21 2021-11-22 Outpt Diag nullFlavo [facility] [id number] Memoria 15:32:00 04:59:00 Services r Outpatient 00 l Imaging [place] 2021-11-21 2021-11-22 Outpt Diag nullFlavo [facility] [id number] Memoria 15:32:00 04:59:00 Services r Outpatient 00 l Imaging [place] 2021-11-21 2021-11-21 Outpatient MANISH Larson [facility] [id number] 10:32:00 23:59:00 Herbert 00 Karthik 2021-11-15 2021-11-15 Emergency X MIRIANCHRISTOPHTRUDI [facility] ERT [id number] Univers 06:29:00 08:25:00 ALCIDES tello [facility] [place] [facility] 2021-11-15 2021-11-15 Emergency Alcides Schulz S 1.2.840.1 [id number] Univers 06:29:00 08:25:00 Catalina Rosales 44960.1.1 ity of 3.104.2.7 [place] .3.537258 Medica l .8 Ruby 2021-11-15 2021-11-15 Travel 1.2.840.1 1.2.913.199 [id number] Univers 00:00:00 00:00:00 94320.1.1 350.1.13.10 ity of 3.104.2.7 4.2.7.3.698 [place] .3.677378 084.8 Medica l .8 Ruby 2021-11-06 2021-11-06 Ambulatory nullFlavo MNA [id number] Memoria 18:30:00 18:30:00 Pre-Reg r Neurology 07 l Courtney Gonzalez 2021-11-06 2021-11-06 Ambulatory nullFlavo MNA [id number] Memoria 18:30:00 18:30:00 Pre-Reg r Neurology 07 l Courtney Gonzalez 2021-11-06 2021-11-06 Outpatient MHIE MHIE [id number] Memoria 13:30:00 13:30:00 07 betsey Gonzalez 2021-11-06 2021-11-06 Outpatient ISABELL LarsonSCHER MHMISCHER [id number] 13:30:00 13:30:00 Herbert Angeles 2021-11-05 2021-11-06 Outpatient nullFlavo MNA [id number] Memoria 19:30:00 04:59:59 r Neurology 08 l Courtney Gonzalez 2021-11-05 2021-11-06 Outpatient nullFlavo MNA [id number] Memoria 19:30:00 04:59:59 r Neurology 08 l Courtney Gonzalez 2021-11-05 2021-11-05 Outpatient VERONICA LarsonMISCHER MHMISCHER [id number] 14:30:00 23:59:59 Herbert Coleen Angeles 2021-11-05 2021-11-05 Outpatient MHIE MHIE [id number] Memoria 14:30:00 14:30:00 Coleen Gonzalez 2021-11-04 2021-11-04 (WEB) STLMLC STLMLC [id number] Co mmon 00:00:00 00:00:00 [facility] 2021-11-02 2021-11-03 Inpatient MELY, [facility] [id number] Reynolds 00:00:00 00:00:00 EDUARD 942 Method i 2021-10-30 2021-10-30 Outpatient JINNY, [facility] [id number] [place] 00:00:00 00:00:00 KEVIN 147 Method i 2021-10-30 2021-10-30 Outpatient JOHN, [facility] [id number] Reynolds 00:00:00 00:00:00 RACHELL 095 Method i 2021-10-29 2021-10-29 (WEB) STLMLC STLMLC [id number] Co mmon 00:00:00 00:00:00 [facility] 2021-10-29 2021-10-29 (WEB) STLMLC STLMLC [id number] Co mmon 00:00:00 00:00:00 [facility] 2021-10-22 2021-10-22 (WEB) STLMLC STLMLC [id number] Co mmon 00:00:00 00:00:00 [facility] 2021-10-21 2021-10-21 Outpatient JINNY, [facility] [id number] Reynolds 00:00:00 00:00:00 KEVIN 935 Method i 2021-10-17 2021-10-17 (WEB) STLMLC STLMLC [id number] Co mmon 00:00:00 00:00:00 [facility] 2021-10-16 2021-10-16 OFFICE STLMLC STLMLC [id number] Co mmon 00:00:00 00:00:00 VISIT EST Spir it PT LEVEL 3 - [facility] 2021-10-16 2021-10-16 (WEB) STLMLC STLMLC [id number] Co mmon 00:00:00 00:00:00 [facility] 2021-08-27 2021-08-27 Outpatient Analisa KHALIL [facility] [id number] Univers 14:23:42 23:59:00 GERMAN tello [facility] [place] [facility] 2021-08-27 2021-08-27 [facility] 1.2.100.969 [id number] Univers 14:23:42 23:59:00 Encounter German [facility] 350.1.13.10 ity of [place] 4.2.7.2.686 Sid as NELY?BLEA [phone] Al dicindia HUANG 808 Ruby MEDICAL OFFICE BUILDING 2021-08-27 2021-08-27 Urgent German Khalil [facility] 1.2.840.114 [id number] Univers 14:20:00 14:49:15 Care Unknown, Attending [facility] 350.1.13.10 ity of [place] 4.2.7.2.686 Sid as NELY?BLEA [phone] Al dical [facility] 370 Ruby MEDICAL OFFICE BUILDING 2021-08-27 2021-08-27 (TEL) STLMLC STLMLC [id number] Co mmon 00:00:00 00:00:00 [facility] 2021-08-21 2021-08-21 OFFICE STLMLC STLMLC [id number] Co mmon 00:00:00 00:00:00 VISIT EST Spir it PT LEVEL 3 [facility] 2021-08-20 2021-08-20 (TEL) STLMLC STLMLC [id number] Co mmon 00:00:00 00:00:00 [facility] 2021-07-13 2021-07-13 (WEB) STLMLC STLMLC [id number] Co mmon 00:00:00 00:00:00 [facility] 2021-06-25 2021-06-25 Ambulatory nullFlavo MNA [id number] Memoria 15:30:00 15:30:00 Pre-Reg r Neurology 06 l Courtney Suarezann 2021-06-25 2021-06-25 Ambulatory nullFlavo MNA [id number] Memoria 15:30:00 15:30:00 Pre-Reg r Neurology 06 l Courtney Suarezann 2021-06-25 2021-06-25 Outpatient MHIE MHDHIRAJ [id number] Memoria 09:30:00 09:30:00 06 l Carlos 2021-06-25 2021-06-25 Outpatient ISABELL LarsonSCHER MISCHER [id number] 09:30:00 09:30:00 Herbert Patricia Angeles 2021-04-29 2021-04-29 (WEB) STLMLC STLMLC [id number] Co mmon 00:00:00 00:00:00 [facility] 2021-03-12 2021-03-12 (WEB) STLMLC STLMLC [id number] Co mmon 00:00:00 00:00:00 [facility] 2021-03-12 2021-03-12 OFFICE STLMLC STLMLC [id number] Co mmon 00:00:00 00:00:00 VISIT EST Spir it PT [facility] 3 [facility] 2021-02-05 2021-02-06 Outpatient nullFlavo MNA [id number] Memoria 15:30:00 04:59:59 r Neurology 05 l Courtney [place] 2021-02-05 2021-02-06 Outpatient nullFlavo MNA [id number] Memoria 15:30:00 04:59:59 r Neurology 05 l Courtney Gonzalez 2021-02-05 2021-02-05 Outpatient ISABELL LarsonSCHER MISCHER [id number] 10:30:00 23:59:59 Herbertpancho [place] 2021-02-05 2021-02-05 Outpatient MHIE MHIE [id number] Memoria 10:30:00 10:30:00 05 l Carlos 2020-12-30 2020-12-30 Outpatient STLMLC STLMLC [id number] Common 00:00:00 00:00:00 [facility] 2020-12-29 2020-12-29 Outpatient STLMLC STLMLC [id number] Common 00:00:00 00:00:00 [facility] 2020-12-10 2020-12-10 Outpatient R BRENNEN MADERA [facility] [id number] Univers 15:30:00 15:30:00 BRENNEN MADERA [facility] [place] [facility] 2020-11-13 2020-11-13 Outpatient [facility] [id number] [facility] 10:00:00 10:00:00 AMY ity o f [facility] 2020-11-11 2020-11-11 Outpatient STLMLC STLMLC [id number] Common 00:00:00 00:00:00 [facility] 2020-11-04 2020-11-05 Outpatient nullFlavo MNA [id number] Memoria 14:45:00 04:59:59 r Neurology 04 l Courtney Gonzalez 2020-11-04 2020-11-05 Outpatient nullFlavo MNA [id number] Memoria 14:45:00 04:59:59 r Neurology 04 l Courtney Gonzalez 2020-11-04 2020-11-04 Outpatient MANUEL LarsonMISCHER [id number] 09:45:00 23:59:59 Herbert 04 Karthik 2020-11-04 2020-11-04 Outpatient MHIE MHIE [id number] Memoria 09:45:00 09:45:00 04 betsey Gonzalez 2020-10-31 2020-10-31 [facility] 1.2.840.114 [id number] [facility] 12:14:44 23:59:00 Encounter Monicajayrocio Harper 350.1.13.10 it[place] of [place] [phone] [facility] 807 Ruby 2020-10-31 2020-10-31 Lunchroom Monitor 2, Adc Lab [facility] 1.2.840.114 [id number] Univers 11:38:32 11:53:32 Visit Amy Alcala Leroy 350.1.13.10 it[place] of [place] [phone] Al dical nal 353 [facility] 2020-10-31 2020-10-31 Office [facility] 1.2.840.114 [id number] Univers 10:46:22 11:31:14 Visit Amy Harper 350.1.13.10 [place] of [place] [id number] Al dical nal 059 [facility] 2020-10-31 2020-10-31 Outpatient R FREDRICK, [facility] [id number] Univers 10:40:00 10:40:00 AMY ity o f [facility] 2020-10-31 2020-10-31 Orders Doctor IQBAL 1.2.840.114 [id number] 00:00:00 00:00:00 Only Unassigned, JUAN C 350.1.13.10 ity of [place] [facility] 4.2.7.2.686 Sid as [id number] [address] 2020-10-30 2020-10-30 Outpatient STLMLC STLMLC [id number] Common 00:00:00 00:00:00 [facility] 2020-10-09 2020-10-09 Outpatient STLMLC STLMLC [id number] Common 00:00:00 00:00:00 [facility] 2020-09-05 2020-09-07 Outside nullFlavo MNA [id number] Memoria 16:24:59 04:59:59 Medical r Neurology 00 l Records Courtney Gonzalez 2020-09-05 2020-09-07 Outside nullFlavo MNA [id number] Memoria 16:24:59 04:59:59 Medical r Neurology 00 l Records Courtney Gonzalez 2020-09-05 2020-09-06 Outpatient MHMISCHER MHMISCHER [id number] 11:24:59 23:59:59 00 2020-09-03 2020-09-04 Outpatient nullFlavo MNA [id number] Memoria 13:15:00 04:59:59 r Neurology 03 l Courtney Gonzalez 2020-09-03 2020-09-04 Outpatient nullFlavo MNA [id number] Memoria 13:15:00 04:59:59 r Neurology 03 l Courtney Gonzalez 2020-09-03 2020-09-03 Outpatient MANUEL Larson MHMEENASCHMARIANNE [id number] 08:15:00 23:59:59 Herbert Angeles 2020-09-03 2020-09-03 Outpatient MHIE MHIE [id number] Memoria 08:15:00 08:15:00 Rafi Gonzalez 2020-08-20 2020-08-21 Outpatient nullFlavo MNA [id number] Memoria 16:00:00 04:59:59 r Neurology 02 betsey Gonzalez 2020-08-20 2020-08-21 Outpatient nullFlavo MNA [id number] Memoria 16:00:00 04:59:59 r Neurology 02 betsey Gonzalez 2020-08-20 2020-08-20 Outpatient MANUEL LarsonMISCHER [id number] 11:00:00 23:59:59 Herbert Ibeth Angeles 2020-08-20 2020-08-20 Outpatient MHIE MHIE [id number] [facility] 11:00:00 11:00:00 02 betsey Gonzalez 2020-08-20 2020-08-20 Orders Doctor FARIDA 1.2.840.114 [id number] Univers 00:00:00 00:00:00 Only Unassigned, JUAN C 350.1.13.10 ity of [place] [facility] 4.2.7.2.686 Sid as [id number] [place] [address] [address] 2020-07-31 2020-07-31 Outpatient STLMLC STLMLC [id number] Common 00:00:00 00:00:00 [facility] 2020-07-30 2020-07-30 Outpatient STLMLC STLMLC [id number] Common 00:00:00 00:00:00 [facility] 2020-07-09 2020-07-09 Outpatient STLMLC STLMLC [id number] Common 00:00:00 00:00:00 [facility] 2020-07-09 2020-07-09 Outpatient STLMLC STLMLC [id number] Common 00:00:00 00:00:00 [facility] 2020-06-10 2020-06-10 Outpatient STLMLC STLMLC [id number] Common 00:00:00 00:00:00 [facility] 2020-06-04 2020-06-04 Outpatient STLMLC STLMLC [id number] Common 00:00:00 00:00:00 [facility] 2020-05-15 2020-05-15 Outpatient STLMLC STLMLC [id number] Common 00:00:00 00:00:00 [facility] 2020-05-09 2020-05-09 Outpatient STLMLC STLMLC [id number] Common 00:00:00 00:00:00 [facility] 2020-05-08 2020-05-08 Outpatient STLMLC STLMLC [id number] Common 00:00:00 00:00:00 [facility] 2020-05-01 2020-05-01 Outpatient STLMLC STLMLC [id number] Common 00:00:00 00:00:00 [facility] 2020-04-16 2020-04-16 Outpatient STLMLC STLMLC [id number] Common 00:00:00 00:00:00 [facility] 2020-03-28 2020-03-28 Outpatient STLMLC STLMLC [id number] Common 00:00:00 00:00:00 [facility] 2020-03-20 2020-03-20 Outpatient STLMLC STLMLC [id number] Common 00:00:00 00:00:00 [facility] 2020-03-16 2020-03-16 Outpatient STLMLC STLMLC [id number] Common 00:00:00 00:00:00 [facility] 2020-03-14 2020-03-14 Outpatient STLMLC STLMLC [id number] Common 00:00:00 00:00:00 [facility] 2020-03-12 2020-03-12 Outpatient STLMLC STLMLC [id number] Common 00:00:00 00:00:00 [facility] 2020-02-08 2020-02-08 [facility] [id number] Common 14:02:00 14:02:[address] [employer] [address] [facility] 2020-02-07 2020-02-07 [facility] [id number] Common 14:50:00 14:50:[address] [employer] [address] [facility] 2020-01-25 2020-01-25 Out[facility] [id number] Common 11:45:00 11:45:[address] [facility] 2020-01-21 2020-01-21 Out[facility] [id number] Common 09:50:00 09:50:[address] [facility] 2020-01-14 2020-01-14 Out[facility] [id number] Common 16:30:00 16:30:[address] [facility] 2020-01-07 2020-01-07 Outpatient [facility] [id number] Common 10:58:00 10:58:00 [facility] 2019-12-31 2019-12-31 [facility] [id number] Common 08:32:00 08:32:[address] [facility] 2019-08-21 2019-08-21 [facility] [id number] Univers 08:00:00 08:00:00 BENSON tello [facility] [place] [facility] 2019-07-27 2019-07-27 [facility] 1.2.794.798 [id number] Univers 18:25:00 23:59:00 Encounter Alysia Reji [facility] 350.1.13.10 ity of Surgical 4.2.7.2.686 [facility] [place] Specialti [phone] Al dical es 808 [facility] 2019-07-27 2019-07-27 Outpatient R [facility] [id number] Univers 18:25:00 23:59:00 ALYSIA ity [facility] [place] [facility] 2019-07-27 2019-07-27 Urgent Erik Rosas [facility] 1.2.840.114 [id number] Univers 18:01:42 19:12:57 Care Unknown, Attending Health 350.1.13.10 ity of Alysia Perales [facility] 4.2.7.2.686 [place] Specialti [phone] Me dical es 370 [facility] 2019-07-11 2019-07-11 Outpatient R SEAN [facility] [id number] Univers 07:58:45 23:59:00 LUIS ALBERTO ity of [facility] 2019-07-11 2019-07-11 [facility] 1.2.840.114 [id number] Univers 07:58:00 23:59:00 Encounter Luis Alberto [facility] [place] 350.1.13.10 it[place] of [place] [id number] [place] [address] [place] 2019-07-11 2019-07-11 Urgent Kelsey Hewitt [facility] 1.2.840.11 [id number] Univers 18:13:43 18:52:39 Care Unknown, [facility] Health 350.1.13.10 ity of Surgical 4.2.7.2.686 Sid as Specialti [phone] Al dical es 370 [facility] 2019-07-11 2019-07-11 Telephone [facility] 1.2.840.114 [id number] Univers 00:00:00 00:00:00 [facility] 350.1.13.10 it y of Surgical 4.2.7.2.686 Sid as Specialti [phone] Al dical es 370 [facility] 2019-05-07 2019-05-07 Outpatient [facility] [id number] Common 13:30:00 13:30:00 [employer] [facility] 2019-01-17 2019-01-17 Ambulatory nullFlavo [facility] [id number] Memoria 15:00:00 15:00:00 Pre-Reg r Primary 01 l Care [facility] 2019-01-17 2019-01-17 [place] [id number] Memoria 15:00:00 15:00:00 Pre-Reg r Primary 01 l [facility] 2019-01-17 2019-01-17 Outpatient CAM LEVY [id number] Memoria 10:00:00 10:00:00 Luis Gonzalez 2019-01-17 2019-01-17 Outpatient Darnell [facility] [id number] 10:00:00 10:00:00 Edward Michael 2018-11-27 2018-11-28 Outpatient nullFlavo [facility] [id number] Memoria 16:15:00 04:59:59 r Primary 00 l Care [place] 2018-11-27 2018-11-28 Outpatient nullFlavo [facility] [id number] Memoria 16:15:00 04:59:59 r Primary 00 l Care [place] 2018-11-27 2018-11-27 Outpatient Darnell, [facility] [id number] 11:15:00 23:59:59 Edward Michael 2018-11-27 2018-11-[address] [facility] [id number] Memoria 11:15:00 11:15:00 00 l Carlos Results Test Description Test Time Test Comments Results Result Comments Source Prepare Packed RBC (in units), 1 Units 2023-03-09 08:12:45 Test Item Value Reference Range Interpretation Comme nts Cross Match Result (test code = Compatible 9) ISBT Blood Type Code (test code = 5100 991596) Unit Blood Type (test code = 4410) O Pos Unit Number (test code = 4411) [id number] Blood Expiration Date & Time (test [id number] code = 470268) Status Information (test code = Issued 4411) Product Identification (test code = Red Blood Cells 4413) Product Code (test code = 4414) [id number] Performed at [facility] Laboratory Services - [facility] Blood [address] [place], [place] [address]Toll Free: [phone] 266CLIA No. [id number] [facility] (in units), 2 Units 2023-03-09 04:18:05 Test Item Value Reference Range Interpretation Comments Cross Match Result Compatible (test code = 4409) ISBT Blood Type Code 5100 (test code = 973291) Unit Blood Type (test O Pos code = 4410) Unit Number (test [id number] code = 4411) Blood Expiration Date [id number] & Time (test code = 375530) Status Information Issued (test code = 4412) Product Red Blood Cells Identification (test code = 4413) Product Code (test [id number] Performed at [facility] code = 4414) Laboratory Services - [facility] Blood [address] [place] [address]Nicy Free: [phone] A No. [id number] [facility] CenterL[facility] Acid Whole [id number] 23:17:59 Test Item Value Reference Range Interpretation Comments LACTIC ACID (test code = 3.38 mmol/L 0.50-2.20 H [id number]) Lab Interpretation (test code = Abnormal 56068-3) [facility]ACT[facility] THRMPLAS [id number] 22:43:29 Test Item Value Reference Range Interpretation Comments APTT Patient (test 24 See_Comment [Automat ed code = 3173-2) message] The system which generated this result transmitted reference range : 23 - 38 Seconds . The reference range was not used to interpr et this result as normal/abnormal . JJ (test code = JJ) The [facility] patient population mean normal value for aPTT is 30 seconds. Lab Interpretation Normal (test code = 19876-8) [facility] WITH [id number] 22:21:58 Test Item Value Reference Range Interpretation Comments WBC (test code = 13.99 See_Comment H [Automated 5432-2) message] The sy stem which generated this result transmitted reference range : 4.30 - 11.10 10*3/?L. The reference range was not used to interpret this result as normal/abnormal . RBC (test code = 1.41 See_Comment L [Automated 183-8) message] The sy stem which generated this [...] RDW-SD (test code = 47.7 fL 39.0-49.9 55387-0) RDW-CV (test code = 18.1 % 12.0-15.5 H 788-0) PLT (test code = 445 See_Comment H [Automated 777-3) message] The sy stem which generated this result transmitted reference range : 166 - 358 10*3/ ?L. The reference r champ was not used to interpret this result as normal/abnormal . MPV (test code = 10.7 fL 9.5-12.9 77609-8) IPF % (test code = 3.5 % 1.3-7.7 Platelet count [id number]) measured by fluorescence method. NRBC/100 WBC (test 0.3 See_Comment [Automat ed code = 6026763084) message] The system which generated this result transmitted reference range : 0.0 - 10.0 /100 WBCs. The refer ence range was not u sed to interpret th is result as normal/abnormal . NRBC x10^3 (test code 0.04 See_Comment [Auto mated = [id number]) message] The s ystem which generated this result transmitted reference range : 10*3/?L. The reference range was not used to interpret this result as normal/abnormal . GRAN MAT (NEUT) % 82.5 % (test code = 770-8) IMM GRAN % (test code 0.70 % = 3858282156) LYMPH % (test code = 11.7 % 736-9) MONO % (test code = 4.9 % 5905-5) EOS % (test code = 0.1 % 713-8) BASO % (test code = 0.1 % 706-2) GRAN MAT x10^3(ANC) 11.54 10*3/uL 1.88-7.09 H (test code = 4091441571) IMM GRAN x10^3 (test 0.10 10*3/uL 0.00-0.06 H code = 4313718099) LYMPH x10^3 (test 1.64 10*3/uL 1.32-3.29 code = 731-0) MONO x10^3 (test code 0.69 10*3/uL 0.33-0.92 = 742-7) EOS x10^3 (test code 0.03-0.39 L = 711-2) BASO x10^3 (test code 0.01-0.07 = 704-7) Lab Interpretation Abnormal (test code = 33481-8) [id number]:22[facility]17 Test Item Value Reference Range Interpretation Comments TROPONIN I (test code = 0.001 ng/mL <=0.034 2310908365) JJ (test code = JJ) Reference (Normal) [...] biotin. Lab Interpretation Normal (test code = 10398-8) [id number] 21:19:34 Test Item Value Reference Range Interpretation Comments NT-proBNP (test code = 196 pg/mL <=125 20391-5) JJ (test code = JJ) Result Indeterminate-Consid er causes of NT-proBNP elevation other than Heart failure such as acute coronary syndrome, pulmonary embolism, pulmonary hypertension, sepsis, stroke, and renal dysfunction. Lab Interpretation (test Abnormal code = 64571-7) [facility] ([id number] 21:11:11 Test Item Value Reference Range Interpretation Comments NA (test code = 137 mmol/L 135-145 9344377968) K (test code = 3.7 mmol/L 3.5-5.0 0785827075) CL (test code = 103 mmol/L 98-108 1314568704) CO2 TOTAL (test code = 17 mmol/L 23-31 L 9399066870) AGAP (test code = 17 2-16 H 5584383991) BUN (test code = 12 mg/dL 7-23 1417435373) GLUCOSE (test code = 150 mg/dL 70-110 H 5943919864) CREATININE (test code = 0.58 mg/dL 0.50-1.04 3327714424) TOTAL BILI (test code = 0.3 mg/dL 0.1-1.3 5008723037) CALCIUM (test code = 7.5 mg/dL 8.6-10.6 L 5577663576) T PROTEIN (test code = 6.6 g/dL 6.3-8.2 1425594613) ALBUMIN (test code = 3.2 g/dL 3.5-5.0 L 2884104530) ALK PHOS (test code = 64 U/L 34-122 4403210840) ALTv (test code = 14 U/L 5-35 1742-6) AST(SGOT) (test code = 45 U/L 13-40 H 9845508432) eGFR (test code = 108.3 mL/min/1.73m2 2542413838) JJ (test code = JJ) Association of [...] tests). Lab Interpretation Abnormal (test code = 72637-3) [facility] / [id number] 21:10:35 Test Item Value Reference Range Interpretation Comments PROTIME PATIENT (test 14.4 See_Comment [Auto mated message] code = 5964-2) The system [employer] generated this result transmitted ref erence range: 12.0 - 1 4.7 Seconds. The re ference range was not u sed to interpret this result as normal/abnor mal. INR (test code = 6301-6) 1.1 Nor mal INR <1.1; Warfarin Therap eutic range 2.0 to 3. 0 or 2.5 to 3.5, dep ending upon the indica tions. Lab Interpretation (test Normal code = 77772-3) [facility] CenterL[facility] Whole [id number] 20:35:03 Test Item Value Reference Range Interpretation Comments LACTIC ACID (test code = 4.23 mmol/L 0.50-2.20 H 4241006536) Lab Interpretation (test code = Abnormal 80780-3) [facility]SARS[facility]CoV-[facility] ([facility]OVID-19) RNA [Presence] in Respiratory specimen by VITALIY with probe [id number] 01:12:19 Test Item Value Reference Range Interpretation Comments SARS-CoV-2 (COVID-19) RNA Not detected [Presence] in Respiratory specimen by VITALIY with probe detection (test code = 76515-4) Whether patient is employed in a Unknown healthcare setting (test code = 21700-8) Whether the patient has symptoms Unknown related to condition of interest (test code = 95045-5) Whether the patient was Unknown hospitalized for condition of interest (test code = 90979-7) Whether the patient was admitted Unknown to intensive care unit (ICU) for condition of interest (test code = 34228-4) Whether patient resides in a Unknown congregate care setting (test code = 71703-3) status (test code = Unknown 14455-7) Date and time of symptom onset Unknown (test code = 88371-1) MUSA NATHAN"
[2023-04-01] MEDS ORDERED: NA CHLORIDE 0.9% 250 ML ONE (15:03)
--- NOTE | 2023-04-01 16:39 | EDPHYS ---
Physician Documentation [facility] Name: Sherrie Rojas Age: 52 yrs Sex: Female : 1970 Arrival Date: 04/01/2023 Time: 12:01 Bed 7 Private MD: [facility] ED Physician Moncho Jeffries HPI: 04/01 12:20 This 52 yrs old Female presents to ER via Wheelchair with complaints of Abnormal Lab [facility] Results, Blood transfusions. 12:20 Onset: The symptoms/episode began/occurred acutely. Associated signs and symptoms: The 7 patient has no apparent associated signs or symptoms. Patient sent from Dr. Regalado's office for a blood transfusion. The patient states that she had her labs drawn here and that her hemoglobin was 6.3. Reports that she does not want her labs redrawn and that she only wants 1 unit of blood. Denies any symptoms at this time.. 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 - Social history:: Smoking status: Patient denies any tobacco usage or history of. ROS: 12:20 Constitutional: Negative for fever, chills, and weight loss, Neck: Negative for injury, jh7 pain, and swelling, Cardiovascular: Negative for chest pain, palpitations, and edema, Respiratory: Negative for shortness of breath, cough, wheezing, and pleuritic chest pain, Back: Negative for injury and pain, MS/Extremity: Negative for injury and deformity, Skin: Negative for injury, rash, and discoloration, Neuro: Negative for headache, weakness, numbness, tingling, and seizure, 12:20 All other systems are negative, Exam: 12:20 Constitutional: This is a well developed, well nourished patient who is awake, alert, jh7 and in no acute distress. Head/Face: Normocephalic, atraumatic. Cardiovascular: Regular rate and rhythm with a normal S1 and S2. No gallops, murmurs, or rubs. Normal PMI, no JVD. No pulse deficits. Respiratory: Lungs have equal breath sounds bilaterally, clear to auscultation and percussion. No rales, rhonchi or wheezes noted. No increased work of breathing, no retractions or nasal flaring. MS/ Extremity: Pulses equal, no cyanosis. Neurovascular intact. Full, normal range of motion. Neuro: Awake and alert, GCS 15, oriented to person, place, time, and situation. 12:20 Skin: Appearance: Color: pale, Vital Signs: 12:20 BP 98 / 64; Pulse 86; Resp 16; Temp 98.4(TE); Pulse Ox 100% ; Weight 57.15 kg; Height 5 cm10 ft. 4 in. ; Pain 0/10; 15:25 BP 110 / 64; Pulse 101; Resp 18; Temp 97.7(TE); Pulse Ox 98% on R/A; rs5 15:30 BP 118 / 61; Pulse 100; Resp 18; Temp 97.8(TE); Pulse Ox 99% on R/A; rs5 15:35 BP 106 / 65; Pulse 103; Resp 17; Temp 97.7(TE); Pulse Ox 99% on R/A; rs5 15:40 BP 110 / 58; Pulse 102; Resp 18; Temp 97.8(TE); Pulse Ox 99% on R/A; rs5 16:50 BP 112 / 57; Pulse 98; Resp 16; Pulse Ox 99% on R/A; rs5 17:10 BP 116 / 68; Pulse 94; Resp 17; Temp 97.9; Pulse Ox 99% on R/A; rs5 12:20 Body Mass Index 21.63 (57.15 kg, 162.56 cm) cm10 12:20 Pain Scale: Adult cm10 MDM: 12:04 Patient medically screened. jh7 12:10 ED course: Patient insistent that she does not have her labs repeated. Her labs were [facility] printed and reviewed in [employer]. Informed the lab of the patient's recent labs. Informed the patient that we would have to redraw the type and screen. Will discharge after 1 unit of PRBCs are infused.. 16:39 Differential diagnosis: Chronic anemia. Data reviewed: vital signs, nurses notes, lab 7 test result(s). I considered the following discharge prescriptions or medication management in the emergency department Medications were administered in the Emergency Department. See MAR. Counseling: I had a detailed discussion with the patient and/or guardian regarding the historical points, exam findings, and any diagnostic results supporting the discharge/admit diagnosis, the need for outpatient follow up, With Dr. Regalado, to return to the emergency department if symptoms worsen or persist or if there are any questions or concerns that arise at home. Response to treatment: the patient's symptoms have markedly improved after treatment. 04/01 12:10 Order name: Type And Screen jh7 04/01 13:18 Order name: Bb Add On eb 04/01 13:23 Order name: Packed RBC Leukored EDVT 04/01 12:10 Order name: Transfuse; Complete Time: 17:25 jh7 Administered Medications: No medications were administered Disposition: 18:09 Co-signature as Attending Physician, Moncho Jeffries MD I reviewed the patient's care rn provided by the Advanced Practice Provider and agree with the diagnosis and treatment plan. Disposition Summary: 04/01/23 16:38 Discharge Ordered Notes: Location: Home [facility] Problem: an ongoing problem [facility] Symptoms: have improved jh Condition: Stable [facility] Diagnosis - Anemia, unspecified [facility] Followup: [facility] - With: Elpidoi Regalado DO - When: 2 - 3 days - Reason: Recheck today's complaints Discharge Instructions: - Discharge Summary Sheet jh7 - Anemia jh - Blood Transfusion, Adult [facility] Forms: - Medication Reconciliation Form [facility] - Thank You Letter [facility] - Patient Portal Instructions [facility] - Leadership Thank You Letter [facility] Signatures: Dispatcher [employer] Moncho Flores MD MD rn Hadash, Jennifer, FNP CLIENT ADMINISTRATOR [facility] Effie Blancas, RN RN cm10
--- NOTE | 2023-04-01 16:39 | ER ---
Nurse's Notes [facility] Name: Sherrie Rojas Age: 52 yrs Sex: Female : 1970 Arrival Date: 04/01/2023 Time: 12:01 Bed 7 Private MD: Elpidio Regalado Diagnosis: Anemia, unspecified Presentation: 04/01 12:20 Chief complaint: Patient states: here for blood transfusion. Had blood drawn this cm10 morning and her hgb was 6.3. Coronavirus screen: Client denies travel out of the [place] in the last 14 days. Ebola Screen: Patient denies travel to an Ebola-affected area in the 21 days before illness onset. No symptoms or risks identified at this time. Initial Sepsis Screen: Does the patient meet any 2 criteria? No. Patient's initial sepsis screen is negative. Does the patient have a suspected source of infection? No. Patient's initial sepsis screen is negative. Risk Assessment: Do you want to hurt yourself or someone else? Patient reports no desire to harm self or others. Onset of symptoms was April 01, 2023. 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 - Social history:: Smoking status: Patient denies any tobacco usage or history of. Screenin:30 Abuse screen: Denies threats or abuse. rs5 12:30 [facility] ED Fall Risk Assessment (Adult) History of falling in the last 3 months, rs5 including since admission No falls in past 3 months (0 pts) Confusion or Disorientation No (0 pts) Intoxicated or Sedated No (0 pts) Impaired Gait No (0 pts) Mobility Assist Device Used Yes (1 pt) Altered Elimination No (0 pt) Score/Fall Risk Level 0 - 2 = Low Risk Oriented to surroundings, Maintained a safe environment. Nutritional screening: No deficits noted. Tuberculosis screening: No symptoms or risk factors identified. Assessment: 12:30 General: Appears in no apparent distress. comfortable, Behavior is calm, cooperative. rs5 Pain: Denies pain. Neuro: Level of Consciousness is awake, alert, obeys commands, Oriented to person, place, time, situation. Cardiovascular: Heart tones S1 S2 present Rhythm is regular. Respiratory: Airway is patent Trachea midline Respiratory effort is even, unlabored, Respiratory pattern is regular, symmetrical, Breath sounds are clear bilaterally. GI: Abdomen is round non-distended, Bowel sounds present X 4 quads. Abd is soft and non tender X 4 quads. : No signs and/or symptoms were reported regarding the genitourinary system. EENT: No signs and/or symptoms were reported regarding the EENT system. Derm: Skin is intact, Skin is pink, warm \T\ dry. Musculoskeletal: Range of motion: intact in all extremities. 12:30 Reassessment: Large mass noted to pt's left side of neck. Mass large, red, no drainage rs5 or sings of infection noted. 13:36 Reassessment: Patient and/or family updated on plan of care and expected duration. Pain rs5 level reassessed. Patient is alert, oriented x 3, equal unlabored respirations, skin warm/dry/pink. Patient denies pain at this time. 14:56 Reassessment: Independence provided per pt request.. Cardiovascular: Rhythm is regular. rs5 Cardiovascular: Denies fatigue, lightheadedness. Respiratory: Airway is patent Respiratory effort is even, unlabored, Respiratory pattern is regular, symmetrical. GI: Patient currently denies nausea, vomiting. 15:52 Reassessment: To bedside for blood transfusion. Blood transfusion rate started at rs5 50ml/hr. Pt did not have a transfusion reaction for first fifteen minutes. Blood transfusion rate titrated up to 210ml/hr after first fifteen minutes. Pain: Denies pain. Cardiovascular: Rhythm is regular. Respiratory: Airway is patent Respiratory effort is even, unlabored, Respiratory pattern is regular, symmetrical. 17:10 Reassessment: Patient and/or family updated on plan of care and expected duration. Pain rs5 level reassessed. Patient is alert, oriented x 3, equal unlabored respirations, skin warm/dry/pink. Blood transfusion completed. See transfusion record for more information. 17:10 Cardiovascular: Rhythm is regular. Cardiovascular: Heart tones S1 S2 present. rs5 Respiratory: Airway is patent Respiratory effort is even, unlabored, Respiratory pattern is regular, symmetrical, Breath sounds are clear bilaterally. Vital Signs: 12:20 BP 98 / 64; Pulse 86; Resp 16; Temp 98.4(TE); Pulse Ox 100% ; Weight 57.15 kg; Height 5 cm10 ft. 4 in. ; Pain 0/10; 15:25 BP 110 / 64; Pulse 101; Resp 18; Temp 97.7(TE); Pulse Ox 98% on R/A; rs5 15:30 BP 118 / 61; Pulse 100; Resp 18; Temp 97.8(TE); Pulse Ox 99% on R/A; rs5 15:35 BP 106 / 65; Pulse 103; Resp 17; Temp 97.7(TE); Pulse Ox 99% on R/A; rs5 15:40 BP 110 / 58; Pulse 102; Resp 18; Temp 97.8(TE); Pulse Ox 99% on R/A; rs5 16:50 BP 112 / 57; Pulse 98; Resp 16; Pulse Ox 99% on R/A; rs5 17:10 BP 116 / 68; Pulse 94; Resp 17; Temp 97.9; Pulse Ox 99% on R/A; rs5 12:20 Body Mass Index 21.63 (57.15 kg, 162.56 cm) cm10 12:20 Pain Scale: Adult cm10 ED Course: 12:03 Patient arrived in ED. mr 12:04 Elpidio Regalado DO is Private Physician. mr 12:04 Renée Morrison FNP is [facility]. jh7 12:04 Moncho Jeffries MD is Attending Physician. jh7 12:20 Arm band placed on Patient placed in an exam room, on a stretcher. cm10 12:25 Triage completed. cm10 12:30 Patient has correct armband on for positive identification. Bed in low position. Call rs5 light in reach. Side rails up X2. 12:45 Anders Barfield, RN is Primary Nurse. rs5 12:50 Inserted saline lock: 20 gauge in left antecubital area, using aseptic technique. Blood rs5 collected. 13:01 Type And Screen Sent. rs5 15:55 Bb Add On Sent. rs5 15:55 Packed RBC Leukored Sent. rs5 16:37 Elpidio Regalado DO is Referral Physician. jh7 17:20 No provider procedures requiring assistance completed. rs5 17:20 IV discontinued, intact, bleeding controlled, No redness/swelling at site. Pressure rs5 dressing applied. Administered Medications: No medications were administered Medication: 15:58 VIS not applicable for this client. rs5 Outcome: 16:38 Discharge ordered by . jh7 17:20 Discharged to home via wheelchair, with family, rs5 17:20 Condition: stable 17:20 Discharge instructions given to patient, family, Instructed on discharge instructions, follow up and referral plans. Demonstrated understanding of instructions, follow-up care, 17:25 Patient left the ED. rs5 Signatures: Vesta Rain, Steven Reg mr Renée Morrison, HAIR SAMPLE MATCHER HAIR SAMPLE MATCHER 7 Anders Barfield, RN RN rs5 Effie Blancas RN RN cm10 Corrections: (The following items were deleted from the chart) 15:57 15:52 Reassessment: To bedside for blood transfusion. rs5 rs5 18:56 15:52 Reassessment: To bedside for blood transfusion. rs5 rs5
[2023-04-01 18:36] VITALS: BP 118/61; TEMP 97.8; O2SAT 99
== END 2023-04-01 17:25 | disposition home or self-care (01) ==
LOC: ER 12:01
PROC: 30233N1 Transfusion of Nonautologous Red Blood Cells into Peripheral Vein, Percutaneous Approach (ICD-10-PCS; principal; 2023-04-01)
DX: D64.9 Anemia, unspecified (principal); Z88.2 Allergy status to sulfonamides; Z88.3 Allergy status to other anti-infective agents; Z91.040 Latex allergy status; Z91.048 Other nonmedicinal substance allergy status
CPT/HCPCS: 86900; 86850; 86901; 86920; 99284; 36430; P9016; J7050

== ENCOUNTER 2023-04-18 06:19 | Inpatient (IN) | payer OTHER ==
--- OUTSIDE RECORDS SUMMARY | 2023-04-18 06:21 | XMS REPORT | Clinical Summary ---
:1970 Author Organization [facility] MD Garcia [facility] Address [address] [place] [address] Care Team Providers Name Role Phone Kev Whitt MD Unavailable Phyllis Modi RD Unavailable Unavailable Yimi Matos MD Unavailable Yimi Matos MD Primary Care Provider Darby Barrera CCC-WEIGHER AND GRADER Unavailable Toby العراقي CCC-WEIGHER AND GRADER Unavailable Unavailable Maryam Lucio MD Unavailable Elpidio [...] High 09/10/2016 Fluticasone Anxiety Low 09/10/2016 Furoate-Vilanterol Sandra 04/12/2023 Iodinated Contrast Media Anaphylaxis High 01/24/2022 Latex [...] s): Comments) Unknown - See comments Tiotropium [place] Shortness Of Breath High 09/10/2016 Triamterene-Hydrochlorot Swelling 09/10/2016 hiazid Turmeric (Curcuma Longa) 04/12/2023 Zileuton Anxiety Low 09/10/2016 Medications Medication Sig Dispensed Refills Start End Status Date Date ProAir HFA 90 INHALE 2 PUFFS 0 A ctive mcg/actuation BY MOUTH EVERY 4 2 inhaler HOURS NEEDED FOR SHORTNESS OF BREATH albuterol Inhale 3 mL (2.5 0 Act alice (PROVENTIL,VENTOLIN mg) by ) 2.5 mg/3 mL nebulization (0.083%) nebulizer every 6 (six) solution hours. predniSONE Take 1 tablet 0 Activ e (DELTASONE) 10 mg (10 mg) by mouth 3 tablet daily. doxycycline Take 1 capsule 28 capsule 0 Ac tive (Vibramycin) 100 MG (100 mg) by 3 capsuleIndications: mouth twice Squamous cell daily. carcinoma of esophagus UNABLE TO FIND Med Name: iron 0 Active powder and pectasol daily diphenhydrAMINE Take 5 mL (12.5 0 Active (BENADRYL) 12.5 mg) by mouth mg/5 mL liquid every 4 (four) hours as needed. diphenhydrAMINE Take 25 mg by 0 Discontinued [...] 3 doses acetylcysteine Take 1 mL (200 60 mL [...] daily for 14 carcinoma of days. esophagus doxycycline Take 1 capsule 28 capsule 0 Di scontinued (Vibramycin) 100 MG (100 mg) by 3 023 (Reorder) capsuleIndications: mouth twice Squamous cell daily. carcinoma of esophagus Active Problems Patient Care Coordination Note Formatting of this note might be differe nt from the original. 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 Overview: Added automatically from request for tereso tolbert [id number] Squamous cell carcinoma of esophagus 01/13/2022 Cancer Staging: Clinical stage from 01/25: Stage CYNTHIA (cT4b, cN3, cM0, GX, L: Upper) - Signed by Horace Day MD PhD on 01/29/2022 Acute on chronic hypoxemic respiratory failure Stridor Agitation Electrolyte and fluid disorders not elsewhere classified Encounters Date Type Department Care Team Description 04/12/2023 Follow-Up MD [place] in [facility] Jesus [facility]os [facility] 11:30 AM [facility] - Head & Neck MD Yimi carcinoma of S3B MULTI SENSOR OPERATOR Surgery esophagus [address] [place] [address] 04/12/2023 Travel 03/28/2023 [facility] ANA LUISA Dey carcinoma of Surgery esophagus (Primary [address]) [place] [address] 03/11/2023 Telephone MD [place] in [facility] - Surgical Yamilet, chief risk officer [address] [place] [address] 01/07/2023 Follow-Up MD [place] in [facility] 11:30 AM [facility] - Head & Neck MD Yimi carcinoma of T Surgery esophagus [address] [place] [address] 01/07/2023 Travel 12/28/2022 [facility] Ne[facility] PA carcinoma of Surgery esophagus (Primary [address]) [place] [address] 10/05/2022 Follow-Up MD [place] in [facility] Jesus Matos s cell 9:30 AM T [facility] - Head & Neck MD Yimi carcinoma of Surgery esophagus [address] [place] [address] 10/05/2022 Travel 09/06/2022 Orders Only [facility] - Lexi Hughes Surgical Oncology ANA LUISA Dey carcinoma of [address] esophagus (Primary Main Bldg, 10th Floor, Dx) [place] [address] 08/13/2022 Orders Only [facility]iop[facility] Noemy [facility] care - Pulmonology Medici ne MICHAEL Dukes (Primary Dx) [address] Main Bldg, 6th [place] [address] 08/13/2022 Orders Only Cardiopulmonary Center Ngoc Posadas, - Pulmonology Medici ne WEB EDITOR [address] Main Bldg, 6th [place] [address] 07/14/2022 Hospital Encounter Head and Neck Center - [place], Squamous cell carcinoma of esophagus 7:43 AM S3B MULTI SENSOR OPERATOR Surgical Oncology MD Yimi Discharge Disposition: Home - [address] 07/14/2022 Main Bldg, 10th Floor, 11:59 [place] [address] 07/14/2022 Travel 07/12/2022 Ancillary Procedure PET Imaging [place], Squamous cell 4:30 PM S3B MULTI SENSOR OPERATOR [address] Geller MD carcinoma of [facility], 6th Luis or [place] [address] 07/12/2022 Travel 07/09/2022 Telephone PET Imaging Sarah Hughes, Nya Paul RN [facility], [address]th [address] [place] [address] 06/22/2022 Orders Only Head [facility] Ne[facility] Center - Charmaine Matos Surgical Oncology MD Yimi carcinoma of [address] esophagus (Primary Main Bldg, 10th Floor, Dx) [place] [address] 05/03/2022 Documentation Case Management Catalina Ritter [address] [place] [address] 04/21/2022 Documentation Case Management Jany [address] [place] [address] after 04/18/2022 Surgical History Surgery Date Site/Laterality Comments HERNIA REPAIR 2017 HYSTERECTOMY 2017 BRONCHOSCOPY 2021 MI TRACHEOSTOMY PLANNED 01/20/2022 Neck/N/A Procedur e: TRACHEOSTOMY - SEPARATE PROCEDURE PLANNED; Surg jo-ann: Yimi Matos MD; Lo cation: MAIN OR; Service: [facility] - HEAD & NECK SURGERY MI BRNCHSC W/DSTRJ SYDNI RELIEF 01/20/2022 Bronchus/N/A Pr ocedure: FLEXIBLE OR RIGID STENOSIS OTH/THN EXC BRONCHOSCOP Y WITH DESTRUCTION OF TUMOR OR STEN OSIS RELIEF (LASER, CRYOTHER APY); Surgeon: Maryam Lucio MD; Location: MAIN P UL PROC; Service: PULMONA RY Medical History Medical History [...] Sign Reading Time Taken Comments Blood Pressure 119/76 04/12/2023 11:45 AM S3B MULTI SENSOR OPERATOR Pulse 75 04/12/2023 11:45 AM S3B MULTI SENSOR OPERATOR Temperature 36.4 C (97.6 F) 04/12/2023 11:45 AM S3B MULTI SENSOR OPERATOR Respiratory Rate 20 04/12/2023 11:45 AM S3B MULTI SENSOR OPERATOR Oxygen Saturation 97% 07/14/2022 8:29 AM S3B MULTI SENSOR OPERATOR Inhaled Oxygen Concentration - - Weight 56.8 kg (125 lb 3.5 oz) 04/12/2023 11:45 AM S3B MULTI SENSOR OPERATOR Height 160 cm (5' 2.99") 07/12/2022 4:08 PM S3B MULTI SENSOR OPERATOR Body Mass Index 22.19 07/12/2022 4:08 PM S3B MULTI SENSOR OPERATOR Plan of Treatment Health Maintenance Due Date Last Done Comments COVID-19 Vaccination (#1) 03/21/1971 Procedures Procedure Name Priority Date/Time Associated Comments Diagnosis PETCT SUBSEQUENT Routine 07/12/2022 5:57 PM Squamous cell Resu lts for this TREATMENT STRATEGY S3B MULTI SENSOR OPERATOR carcinoma of procedure are in esophagus the results section. after 04/18/2022 Results PETCT Subsequent Treatment Strategy (07/12/2022 5:57 PM S3B MULTI SENSOR OPERATOR) Anatomical Region Laterality Modality Whole Body Positron Emission To mography (PET) Specimen (Source) Anatomical Collection Method Collection Time Re ceived Time Location / / Volume Laterality 07/13/2022 8:33 AM S3B MULTI SENSOR OPERATOR Impressions 07/13/2022 11:08 AM S3B MULTI SENSOR OPERATOR 1. IMPRESSION: Progression of disease as evidenced [...] the final report. 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 Relationship Specialty Start Date End Date Kev Whitt, PCP - External Follow Up Radiation Oncology MD Gaytan [address] [place] [address] Yimi Matos MD PCP - General Head and Neck Surgery 03/02/[address] [place] [phone] Phyllis Mdoi, Clinical Dietitian Nutrition 02/16/[address] [place] [phone] Yimi Matos MD Physician Head and Neck Surgery 02/24/[address] [place] [id number] Darby Barrera, Speech Language Speech Pathology 03/30/22 CCC-WEIGHER AND GRADER Pathologist [address] [place] [phone] Toby العراقي Speech Language Speech Pathology 04/14/22 Jose C, CCC-WEIGHER AND GRADER Pathologist [address] [place] [address] Maryam Lucio MD Consulting Physician Pulmonary Medicine 01/19/[address] [place] [phone] Fabricio [facility] 03/11/23 DO Mathew [address] [place] [address] [phone]
--- OUTSIDE RECORDS SUMMARY | 2023-04-18 06:56 | XMS REPORT | Continuity of Care Document ---
:1970 Author Organization [facility] t Address [address] [facility]. [address] [place] [address] Care Team Providers Name Role Phone Fabricio HUGHES [facility] Primary Care Physician [phone] Elpidio Regalado Attending Clinician Unavailable SYSTEM, PROVIDER NOT IN Attending Clinician Unavailable ATIF ROSEN Attending Clinician Unavailable FELICITAS MATOS Attending Clinician Unavailable Felicitas Matos MD Attending Clinician Lexi Granger Attending Clinician Herbert Larson Attending Clinician Yamilet Lugo RN Attending Clinician RADAMES HARMAN Attending Clinician Unavailable Will Stratton MD Attending Clinician Kimani RON, Radames Kaur Attending Clinician Kinjal TECHNICAL AIDE, Roseline Attending Clinician Cuauhtemoc TECHNICAL AIDE, Ngoc Attending Clinician Doctor Unassigned, [place] Attending Clinician Unavailable Saul GIBSON, Sarah Attending Clinician Unavailable Elzbieta Gaona DO Attending Clinician Stone GIBSON, Catalina Fitzgerald Attending Clinician Kiran GIBSON, Sheree Ng Attending Clinician Dayne Bentley MD, Bethany Attending Clinician [phone] Dulce Maria [facility]-ROOM ATTENDANTS, Toby Leggett Attending Clinician Unavailable Sushila RON, Josef Attending Clinician Milena CCC-ROOM ATTENDANTS, Yamilet Mendoza Attending Clinician [phone] Nasrin TECHNICAL AIDE, Lashawn Card Attending Clinician Chi GIBSON, Arely Ng Attending Clinician Unavailable Kyler RON, Dwight Attending Clinician ELISE GARCIA Attending Clinician Unavailable CATALINA ROSALES Attending Clinician Unavailable Catalian Rosales DO Attending Clinician BETHANY WEISS Attending Clinician Unavailable JASMYNE CHRIS Attending Clinician Unavailable PATRICIO JAMISON Attending Clinician Unavailable MARLON ROWE Attending Clinician Unavailable Enio Cevallos Attending Clinician Marlon Rowe MD Attending Clinician Nicole HUSSEIN Attending Clinician Unavailable Nicole Mcfarlane Attending Clinician Bety Ceja MD Attending Clinician GWENDOLYN CUMMINGS Attending Clinician Unavailable STEPHANIE HENRY Attending Clinician Unavailable Gage RON, Nell Ashford Attending Clinician [phone] Sariah Carroll LVN Attending Clinician Estevan Patel MD Attending Clinician BETY CEJA Attending Clinician Unavailable Michael Danielle MD Attending Clinician ELZBIETA GAONA Attending Clinician Unavailable ELZBIETA GAONA Attending Clinician Unavailable Vanessa Regalado DO Attending Clinician Lisa RON, Suly Attending Clinician TONY LAZCANO Attending Clinician Unavailable Liam PAC, Lauren S Attending Clinician Lan Maza MD, Fox Myers Attending Clinician [phone] Tony Lazcano MD Attending Clinician Madyson Henson MD Attending Clinician EULOGIO LEMON Attending Clinician Unavailable Kvng ACNEulogio Pinzon Attending Clinician Santi WIRE STITCHER MACHINEBritton Pinzon Attending Clinician Nurse, [facility] Attending Clinician Unavailable BRITTON HANCOCK Attending Clinician Unavailable ALCIDES SCHULZ Attending Clinician Unavailable Alcides Schulz MD Attending Clinician EDUARD BOONE Attending Clinician Unavailable KEVIN STEARNS Attending Clinician Unavailable RACHELL LOPEZ Attending Clinician Unavailable GERMAN RODRIGUEZ Attending Clinician Unavailable Ebrahigolden WIRE STITCHER MACHINEGerman Attending Clinician Unknown, Attending Attending Clinician Unavailable BRENNEN MADERA Attending Clinician Unavailable BRENNEN MADERA Attending Clinician Unavailable AMY ALCALA Attending Clinician Unavailable Amy Alcala MD Attending Clinician 2, Adc Lab Attending Clinician Unavailable BENSON ARAGON Attending Clinician Unavailable Alysia Perales MD Attending Clinician ALYSIA PERALES Attending Clinician Unavailable Ralph RON, Erik Ratliff Attending Clinician [phone] LUIS ALBERTO ESTRADA Attending Clinician Unavailable Luis Alberto Estrada MD Attending Clinician Kelsey Hewitt PA-C Attending Clinician Darnell STRANGE Edkodi Michael Attending Clinician ATIF ROSEN Admitting Clinician Unavailable RADAMES HARMAN Admitting Clinician Unavailable Radames Harman MD Admitting Clinician DONNIE YUAN Admitting Clinician Unavailable ENIO PATEL Admitting Clinician Unavailable Nicole HUSSEIN Admitting Clinician Unavailable Nell Almonte MD Admitting Clinician [phone] NELL ALMONTE Admitting Clinician Unavailable FOX BREEN JR Admitting Clinician Unavailable Lan Maza MD, Victor J Admitting Clinician [phone] CATALINA ROSALES Admitting Clinician Unavailable LARRY SNOW Admitting Clinician Unavailable LUIS ALBERTO ESTRADA Admitting Clinician Unavailable Payers Payer Name Policy Type Policy Number Effective Date Expiration Date Antonio moore CIGNA O POS [id number] 2021 OPEN ACCESS 00:00:00 CIGNA II [id number] 2020 00:00:00 CIGNA 53 [id number] 2022 [facility] 00:00:00 - [facility] [id number] 2018 - OUT OF STATE 00:00:00 Problems [...] Mu w: Univers n of n of vte 01-20 Formattin ity of trachea trachea 00:00: g of this [place] 00 note might be Anderso different n from the Cancer original. 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 Formattin g of this note might be different from the original. Added automatic ally from request for surgery [id number] ed automatic ally from request for surgery [id number] matting of this note might be different from the original. Added automatic ally from request for surgery [id number] Uterine Uterine Disease Active Methodi leiomyoma leiomyoma 02-02 00:00: Hospita 00 l Obstructiv Obstructiv Disease Active M ethodi e sleep e sleep 10-13 apnea apnea 00:00: Hospita 00 l Prediabete Prediabete Disease Active M ethodi s s 10-13 00:00: Hospita 00 l Vitamin D Vitamin D Disease Active Met hodi deficiency deficiency 09-28 00:00: Hospita 00 l Erythrocyt Erythrocyt Disease Active U nivers osis osis 09-28 ity of 00:00: [place] [facility] Hematuria Hematuria Disease Active Met hodi 09-01 00:00: Hospita 00 l Polyarthra Polyarthra Disease Active M ethodi lgia lgia 09-01 st 00:00: Hospita 00 l Smoker Smoker Disease Active Methodi 09-01 00:00: Hospita 00 l Multiple Multiple Disease Active Unive rs drug drug 09-01 ity of allergies allergies 00:[place] [facility] [place] Idiopathic Idiopathic Disease Active U nivers gout, gout, 09-01 ity of unspecifie [place] Medical chronicity chronicity Br anch , , unspecifie unspecifie d site d site Enlarged Enlarged Disease Active Overview: Un dequan uterus uterus 5-16 Formattin ity of 00:00: g of this [place] 00 note Medical might be Branch different from [...] vers rubella rubella 09-07 ity of 00:00: [address] Depression Depression Disease Active M ethodi 09-04 st 00:00: Hospita 00 l Dermatophy Dermatophy Disease Active Overview : Methodi tosis tosis 09-[address] 00:00: g of this [facility] 00 note l might be different from the original. Formattin g of this note might be different from the original. ICD10 Diagnosis Term Senior Sas Programmer UtilityIC D10 Diagnosis Term Senior Sas Programmer UtilityFo rmatting of this note might be different from the original. ICD10 Diagnosis Term Senior Sas Programmer Utility Asthma Asthma Disease Active Methodi 09-04 st 00:00: Hospita 00 l Generalize Generalize Disease Active M ethodi d anxiety d anxiety 09-04 st disorder disorder 00:00: Hospit a 00 l Encounter Encounter Disease Active Overview: Univers for for 09-04 Formattin ity of routine routine 00:00: g of this [place] gynecologi gynecologi 00 note Me dical abdirizak abdirizak might be Branch examinatio examinatio different n n from the original. ICD10 Diagnosis Term Senior Sas Programmer Utility Need for Need for Disease Active Unive rs prophylact prophylact 09-04 it y of ic ic 00:00: [place] vaccinatio vaccinatio 00 Me dical n with n with Branch combined combined diphtheria diphtheria -tetanus-p -tetanus-p ertussis ertussis (DTP) (DTP) vaccine vaccine Irregular Irregular Disease Active Uni vers menstrual menstrual 09-04 ity of cycle cycle 00:00: [address] Branch [id number] Adult BMI Problem Com mon 37.0-37.9 Spirit kg/sq m - [facility] [id number] MGUS Problem Common (monoclona Spirit l - [facility] gammopathy [facility] unknown [facility] [id number] Hypothyroi Problem Com mon dism, Spirit unspecifie - [facility] d type [facility] Iron Iron Problem Common deficiency deficiency Sp maryann anemia due anemia due - [facility] to chronic to chronic blood loss blood loss [facility] [id number] Iron Problem Common deficiency Spirit anemia, - CHI unspecifie St d iron kes deficiency Medica l anemia Center type [id number] Tracheosto Problem Co mmon my in [facility] place - [facility] [id number] Morbid Problem Commo n 9104 (severe) [facility] obesity - [facility] due to [facility] [id number] Body mass Problem Com mon index Spirit (BMI) - CHI 40.0-44.9, [facility] [id number] Mixed Problem Common hyperlipid [facility] emia - [facility] [id number] Tobacco Problem Commo n use Spirit disorder - [facility] [id number] Extrinsic Problem Com mon asthma, Spirit unspecifie - CHI d asthma St severity, [facility] unspecifie Medica l d whether Center complicate d, unspecifie d whether persistent [id number] Anxiety Problem Common disorder Spirit due to - [facility] multiple [facility] [id number] Gout Problem Common involving Spirit toe, - [facility] unspecifie St d cause, [facility] chronicity , unspecifie d laterality [id number] Gluten Problem Common intoleranc Spirit e - [facility] Malignant Malignant Problem Active 2023-03-26 Memoria tumor of tumor of 22:32:57 l esophagus esophagus Herm sujatha (disorder) (disorder) Active Problem 03/26/2023 [facility] [place] Backache Backache Problem Active 2023-03-26 Memoria (finding) (finding) 22:32:57 l Active [place] Problem 03/26/2023 Aiden Neuro,[facility] Cramp in Cramp in Problem Active 2023-03-26 Memoria lower limb lower limb 22:32:57 l (finding) (finding) Herm sujatha Active Problem 03/26/2023 Natividadlorri Castaneda, [facility]ADEN [facility] Dyslipidem Dyslipide Problem Active 2023-03-26 Memoria ia vero 22:32:57 l associated associated He rmann with type with type II II diabetes diabetes mellitus mellitus (disorder) (disorder) Active Problem 03/26/2023 Medical Group,[facility] her Neuro,[facility] Finding of Finding Problem Active 2023-03-26 Memoria body mass of body 22:32:57 l index mass index Rodolfo n (finding) (finding) Active Problem 03/26/2023 Medical Group,[facility] her Neuro,[facility] Morbid Morbid Problem Active 2023-03-26 Keanu tony obesity obesity 22:32:57 l (disorder) (disorder) He rmann Active Problem 03/26/2023 [facility] Pain in Pain in Problem Active 2023-03-26 [facility] spine spine 22:32:57 l (finding) (finding) Herm sujatha Active Problem 03/26/2023 [facility] Paresthesi Paresthes Problem Active 2023-03-26 Memoria a ia 22:32:57 l (finding) (finding) Herm sujatah Active Problem 03/26/2023 [facility] Peripheral Periphera Problem Active 2023-03-26 Memoria nerve l nerve 22:32:57 l disease disease Carlos (disorder) (disorder) Active Problem 03/26/2023 [facility] Spinal Spinal Problem Active 2023-03-26 Keanu tony stenosis stenosis 22:32:57 l in in [place] cervical cervical region region (disorder) (disorder) Active Problem 03/26/2023 Aiden Castaneda KADEN [facility] [place] Thyroid Thyroid Problem Active 2023-03-26 Me moria lump lump 22:32:57 l (disorder) (disorder) He rmann Active Problem 03/26/2023 Aiden Castaneda,[facility] [place] R20.2 - R20.2 - Diagnosis Active 2021-11-21 Memoria PARESTHESI PARESTHESI 10:40:00 l A OF SKIN A OF SKIN Herm sujatha G62.9 - G62.9 - POLY POLY Active MH OPID [place] Acute on Acute on Disease Active Unive rs chronic chronic ity of hypox[place] respirator respirator y failure y failure Carlos Enrique [facility] Stridor Stridor Disease Active Univers [facility] of [place] MD Luz Marina card [facility] Agitation Agitation Disease Active Uni vers ity of [place] MD Luz Marina card Cancer Center Electrolyt Electrolyt Disease Active U nivers e and e and ity of fluid fluid [place] disorders disorders not not Anderso elsewhere elsewhere n classified classified [facility] Center Allergies, Adverse Reactions, Alerts Allergy Allergy Status Severity Reaction(s) Onset Inactive Treating Comm ents Source Name Type Date Date Clinician GERMÁN DRUG Active 2022-05 INGREDI 1-14 Anderso 00:00: n 00 TURMERIC Drug Active 2022-05 MD (CURCUMA Class 1-14 Anderso LONGA) 00:00: n 00 Germán Propensi Active 2022-05 Univers ty to 1-14 ity of adverse 00:00: [place] reaction 00 MD antonio card [facility] Turmeric Propensi Active 2022-05 Univer s (Curcuma ty to 1-14 ity of [place]) adverse 00:00: [place] reaction 00 MD antonio card [facility] ACETYLCY DRUG Active Other MD POWERS INGREDI [...] n 00 ACETYLCY DRUG Active Other 3-0 BASSEMReji INGREDI 2-15 Anderso 00:00: n 00 ACETYLCY DRUG Active Other 3-0 MD BASSEME INGREDI 2-15 Anderso 00:00: n 00 ACETYLCY DRUG Active Other 3-0 MD BASSEME INGREDI 2-15 Anderso 00:00: n 00 ACETYLCY DRUG Active Other 3-0 MD BASSEME INGREDI 2-15 Anderso 00:00: n 00 ACETYLCY DRUG Active Other 3-0 MD BASSEME INGREDI 2-15 Anderso 00:00: n 00 ACETYLCY DRUG Active Other 3-0 MD BASSEME INGREDI 2-15 Anderso 00:00: n 00 ACETYLCY [...] Cancer Center IODINATE Drug Active High Anaphylaxis 2022-0 [...] ity of 00:00: of bed [place] 00 [facility] Dexameth Propensi Active Swelling 2021-0 Throat Univ ers asone ty to 8-20 swelling ity of adverse 00:00: / stridor [place] reaction 00 Medical s Branch Meropene Propensi Active Cough 2022-0 Balance Unive rs m ty to 8-20 issues / ity of adverse 00:00: migraine [place] reaction 00 Medical s Branch DEXAMETH DRUG Active Swelling 2022-0 Univer s ASONE INGREDI 8-20 ity of [...] INGREDI 7-12 ity of 00:00: [place] 00 [facility] CEPHALEX DRUG Active Swelling 2022-0 MD [...] IN INGREDI 7-12 Anderso 00:00: n 00 Cephalex Propensi Active Swelling 2022-0 Univ ers in ty to 7- ity of adverse 00:00: [place] reaction 00 MD antonio card [facility] IODINE DRUG Active Anaphylaxis 2-0 Unive rs INGREDI - ity of 00:00: [place] 00 Medical Branch SILICONE DRUG Active ITCHING 2022-0 Univers INGREDI 7- ity of 00:00: [place] 00 [facility] Silicone Propensi Active Itching 2-0 Unive rs ty to 11-29 ity of adverse 00:00: [place] reaction 00 Medical s Branch Iodine Propensi Active Anaphylaxis 2-0 Uni vers ty to 11-29 ity of adverse 00:00: [place] reaction 00 Medical s Branch Silicone Propensi Active Itching 2-0 Unive rs ty to 11-29 ity of adverse 00:00: [place] reaction 00 [...] s to drug Silicone Propensi Active Swelling 2021-0 Meth chayo ty to 10-30 st adverse 00:00: Hospita reaction 00 l s to drug Sodium Propensi Active Shortness Of 2021-0 Me thodi Lauryl ty to Breath 10-30 st Sulfate adverse 00:00: Hospita reaction 00 l s to drug Shellfis Drug Active Swelling 2021-0 Univer s h Allergy 10-30 ity of Containi 00:00: [place] ng 00 [facility] Silicone Propensi Active Swelling 2021-0 Univ ers ty to 10-30 ity of adverse 00:00: [place] reaction 00 s [facility] Sodium Drug Active Shortness Of 2021-0 Other Univ ers Lauryl Allergy Breath 10-30 reaction( ity of Sulfate 00:00: s): [place] 00 shortness MD of breath [facility] Iodine Propensi Active Rash 2021-0 Methodi ty to 5-25 st adverse 00:00: Hospita reaction 00 l s to drug Latex Propensi Active Rash 2021-0 Methodi ty to 5-25 st adverse 00:00: Hospita reaction 00 l s to drug Sulfa Propensi Active GI 2021-0 Methodi (Sulfona ty to Intolerance 5-25 st mide adverse 00:00: Hospita Antibiot reaction 00 l ics) s to drug Amoxicil Propensi Active GI 2021- Method i tera ty to Intolerance 5-25 st adverse 00:00: Hospita reaction 00 l s to drug Amoxicil Propensi Active Other (See Coughing Methodi tera-Pot ty to Comments) 5-[address] Clavulan adverse 00:00: Hospita ate reaction 00 l s to drug EGG DRUG Active Swelling 2020- Univers INGREDI 604 ity of 00:00: [place] 00 [facility] Branch EGG DRUG Active Swelling 2020-0 MD INGREDI 10-31 Anderso 00:00: n 00 Egg Propensi Active Swelling Method i ty to 10-31 st adverse 00:00: Hospita reaction 00 l s to drug Egg Propensi Active Swelling Univer s ty to 10-31 ity of adverse 00:00: [place] reaction 00 MD antonio Raza n [facility] AMOXICIL DRUG Active Rash 2019-0 Univers TERA INGREDI 02-24 ity of 00:00: [place] 00 [facility] Branch Amoxicil Propensi Active Rash 2019-0 Univer s tera ty to 02-24 ity of adverse 00:00: [place] reaction 00 Medical s Branch AMOXICIL DRUG Active High Rash 2019-0 MD [...] AMOXICIL DRUG Active High Rash 2019-0 MD TREA INGREDI 02-24 Anderso 00:00: n 00 AMOXICIL [...] TERA INGREDI 02-24 Anderso 00:00: n 00 Amoxicil Drug Active Rash 2019-0 Other Univers tera Allergy 02-24 reaction( ity of 00:00: s): GI [place] 00 [facility]in [facility] METFORMI DRUG Active High Other-Cmnt 2019-0 Univ ers N (BULK) 4-14 ity of 00:00: [place] 00 [facility] AMPICILL DRUG Active Med Anxiety 2019-0 Univers IN 4-14 ity of (BULK) 00:00: [place] 00 [facility] Ampicill Propensi Active Anxiety 2019-0 Unive rs in ty to 4-14 ity of (Bulk) adverse 00:00: [place] reaction 00 Medical s Branch METFORMI DRUG Active High Other 2019-0 MD [...] N (BULK) 4-14 Anderso 00:00: n 00 Metformi Propensi Active Altered 2018- Severe Metho di n (Bulk) ty to Mental 09-[address] adverse Status 00:00: n, Hospita reaction 00 delusions l s to . See drug nurse note from 09/10/18 urgent care visit.Sev ere aggressio n, delusions . See nurse note from 09/10/18 urgent care visit. Metformi Propensi Active Other (See Other Un [...] 09/10/18 urgent care visit. ETHYL DRUG Active Other-Cmnt 2016-05 Univer s ALCOHOL INGREDI 06-18 ity of 00:00: [place] 00 [facility] Ethyl Propensi Active Other - See 2016-05 Patient Un dequan Alcohol ty to comments 06-18 prefers ity of adverse 00:00: providers [place] reaction 00 to wash Medical s hands Branch with soap and water ETHYL DRUG Active Other 2016-05 MD ALCOHOL INGREDI 06-18 Anderso 00:00: n 00 Ethyl Propensi Active GI 2016-05 Patient Methodi Alcohol ty to Intolerance 06-[address] adverse 00:00: providers Hospit a reaction 00 to wash l s to hands drug with soap and waterPati ent prefers providers to wash hands with soap and water THIMEROS DRUG Active Unknown-Cmnt 2016- Un dequan AL INGREDI 06-11 ity of 00:00: [place] 00 [facility] MIDAZOLA DRUG Active Other-Cmnt 2016-05 Univ ers M HCL INGREDI 06-11 ity of 00:00: [place] 00 [facility] Branch Midazola Propensi Active Other - See 2017 Depressi o Univers m Hcl ty to comments 06-11 n ity of adverse 00:00: [place] reaction 00 [facility] Branch THIMEROS DRUG Active Other 2017 AL INGREDI 13 Anderso 00:00: n 00 MIDAZOLA DRUG Active Low Anxiety 2017 MD Dey INGREDI 13 Anderso 00:00: n 00 THIMEROS DRUG Active Other 2017 MD ALLEN INGREDI 13 Anderso 00:00: n 00 MIDAZOLA DRUG Active Low Anxiety 2017- MD Dey INGREDI 13 Anderso 00:00: n 00 THIMEROS DRUG Active Other 2017 MD ALLEN INGREDI 13 Anderso 00:00: n 00 MIDAZOLA DRUG Active Low Anxiety 2017 MD Dey INGREDI 13 Anderso 00:00: n 00 THIMEROS DRUG Active Other 2017 MD ALLEN INGREDI 13 Anderso 00:00: n 00 MIDAZOLA DRUG Active Low Anxiety 2017- MD Dey INGREDI 13 Anderso 00:00: n 00 THIMEROS DRUG Active Other 2017- MD ALLEN INGREDI 13 Anderso 00:00: n 00 THIMEROS DRUG Active Other 2017- MD ALLEN INGREDI 13 Anderso 00:00: n 00 MIDAZOLA DRUG Active Low Anxiety 2017 MD Dey INGREDI 13 Anderso 00:00: n 00 THIMEROS DRUG Active Other 2017 AL INGREDI 13 Anderso 00:00: n 00 MIDAZOLA DRUG Active Low Anxiety 2017 MD Dey INGREDI 13 Anderso 00:00: n 00 MIDAZOLA DRUG Active Low Anxiety 2017 MD Dey INGREDI 13 Anderso 00:00: n [...] 00 MIDAZOLA DRUG Active Low Anxiety 2017 M INGREDI 1-13 Anderso 00:00: n 00 THIMEROS DRUG Active Other 2017 AL INGREDI -13 Anderso 00:00: n 00 MIDAZOLA DRUG Active Low Anxiety 2017- M INGREDI 1-13 Anderso 00:00: n 00 THIMEROS DRUG Active Other 2017- AL INGREDI -13 Anderso 00:00: n 00 THIMEROS DRUG Active Other 2017 AL INGREDI -13 Anderso 00:00: n 00 MIDAZOLA DRUG Active Low Anxiety 2017 M INGREDI -13 Anderso 00:00: n 00 THIMEROS DRUG Active Other 2017- AL INGREDI 13 Anderso 00:00: n 00 MIDAZOLA DRUG Active Low Anxiety 2017- M INGREDI -13 Anderso 00:00: n 00 MIDAZOLA DRUG Active Low Anxiety 2017 M INGREDI -13 Anderso 00:00: n 00 THIMEROS DRUG Active Other 2017 AL INGREDI 13 Anderso 00:00: n 00 MIDAZOLA DRUG Active Low Anxiety 2017- MD Dey INGREDI -13 Anderso 00:00: n 00 THIMEROS DRUG Active Other 2017 AL INGREDI 13 Anderso 00:00: n 00 MIDAZOLA DRUG Active Low Anxiety 2017 M INGREDI -13 Anderso 00:00: n 00 THIMEROS DRUG Active Other 2017 AL INGREDI -13 Anderso 00:00: n 00 MIDAZOLA DRUG Active Low Anxiety 2017 MD Dey INGREDI -13 Anderso 00:00: n 00 THIMEROS DRUG Active Other 2017 AL INGREDI -13 Anderso 00:00: n 00 MIDAZOLA DRUG Active Low Anxiety 2017- M INGREDI 13 Anderso 00:00: n 00 Midazola Propensi Active Anxiety 2017- Depressio Me thodi m ty to 06-11 [...] 00:00: s): [place] reaction 00 Unknown - s See Anderso comments n [facility] LIDOCAIN DRUG Active Other-Cmnt 2016-05 Univ ers E INGREDI 06-04 ity of 00:00: [place] 00 [facility] Branch LIDOCAIN DRUG Active High Other 2016-05 MD [...] E INGREDI 06-04 Anderso 00:00: n 00 Lidocain Propensi Active Swelling 2016-05 Burning, Me thodi e ty to 06-[address] adverse 00:00: Guillermo, Hospit a reaction 00 irritatio l s to n drug Lidocain Propensi Active Swelling 2016-05 Burning, Un dequan e ty to 06-04 irritatio ity of adverse 00:00: Luis Li reaction 00 irritatio s Luz Marina Li irritatio n n [facility] ROSUVAST DRUG Active Other-Cmnt Univ ers ATIN INGREDI 5-17 ity of 00:00: [place] 00 [facility] Branch ROSUVAST DRUG Active Other 2017-0 MD ATIN [...] ATIN INGREDI 5-17 Anderso 00:00: n 00 Rosuvast Propensi Active Other (See 2017-0 Vague Un dequan atin ty to Comments) 5-17 intoleran ity of adverse 00:00: ce [place] reaction 00 MD antonio [facility] n [facility] ADHESIVE Drug Active Rash 2017-0 Univers Class 4-14 ity of 00:00: [place] 00 [facility] FLUTICAS DRUG Active SOB 2017-0 Univers ONE 4-14 ity of PROPION- 00:00: [place] SALMETER 00 Medical OL Branch BANANA DRUG Active Other-Cmnt [id number] Univer s INGREDI 4-14 ity of 00:00: [place] 00 [facility] FLUTICAS DRUG Active Anxiety 2017-0 Univers ONE 4-14 ity of FUROATE- 00:00: [place] VILANTER 00 Medical OL Branch CETIRIZI DRUG Active Other-Cmnt [id number] Univ ers NE INGREDI 4-14 ity of 00:00: [place] 00 Medical Branch DEXLANSO DRUG Active Diarrhea 2017 Univer s PRAZOLE INGREDI 4-14 ity of 00:00: [place] 00 [facility] FLUTICAS DRUG Active SOB Univers ONE INGREDI 4-14 ity of PROPIONA 00:00: [place] TE 00 Medical Branch LATEX DRUG Active Rash Univers INGREDI 4-14 ity of 00:00: [place] 00 [facility] Branch MACROLID Drug Active N/V 2017 Univers E Class 4-14 ity of ANTIBIOT 00:00: [place] ICS 00 Medical Branch BECLOMET DRUG Active SOB Univers HASONE INGREDI 4-14 ity of DIPROPIO 00:00: [place] KALA 00 Medical Branch TIOTROPI DRUG Active SOB 20170 Univers UM INGREDI 4-14 ity of BROMIDE 00:00: [place] 00 [facility] Branch BUDESONI DRUG Active SOB 20170 Univers DE-FORMO 4-14 ity of TEROL 00:00: [place] 00 [facility] Branch TRIAMTER DRUG Active Swelling 20170 Univer s ELENA-HYDR 4-14 ity of OCHLOROT 00:00: [place] HIAZID 00 Medical Branch ZILEUTON DRUG Active Anxiety 20170 Univers INGREDI 4-14 ity of 00:00: [place] 00 Medical Branch Budesoni [place] [address] Univers de-Formo ty to Breath 4-14 ity of terol adverse 00:00: [place] reaction 00 Medical s Branch Flut[place] [address] Univers one ty to Breath 4-14 ity of Propion- adverse 00:00: [place] Salmeter reaction 00 Medica l ol s Branch Adhesive Propensi Active Rash 20170 Univer s ty to 4-14 ity of [...] Medical s Branch Latex Propensi Active Rash 2017-0 Univers ty to 4-14 ity of adverse 00:00: [place] reaction 00 Medical s Branch Beclomet Propensi Active Shortness of 2017-0 Univers hasone ty to Breath 4-14 ity of Dipropio adverse 00:00: [place] kala reaction 00 Medical s Branch Budesoni Propensi Active Shortness of 2017-0 Univers de-Formo ty to Breath 4-14 ity of terol adverse 00:00: [place] reaction 00 Medical s Branch Triamter Propensi Active Swelling 2017-0 Univ ers eelna-Hydr ty to 4-14 ity of ochlorot adverse 00:00: [place] hiazid reaction 00 Medical s Branch LATEX DRUG Active High Rash 2017-0 [...] ONE INGREDI 4-14 Anderso 00:00: n 00 Dexlanso Propensi Active Diarrhea 2017- Meth chayo prazole ty to 4-14 st adverse 00:00: Hospita reaction 00 l s to drug Fluticas Propensi Active Shortness Of 0 Methodi one ty to Breath 4-14 st adverse 00:00: Hospita reaction 00 l s to drug Macrolid Propensi Active GI 0 Method i e ty to Intolerance 4-14 st Antibiot adverse 00:00: Hospita ics reaction 00 l s to drug Adhesive Propensi Active Rash 2017-0 Method i ty to 4-14 st adverse 00:00: Hospita reaction 00 l s to drug Tiotropi Propensi [place] Of 20170 Methodi um ty to Breath 4-14 st [place] adverse 00:00: Hospita reaction 00 l s to drug Triamter Propensi Active Swelling 2017-0 Meth chayo elena-Hydr ty to 4-14 st ochlorot adverse 00:00: Hospita hiazid reaction 00 l s to drug Zileuton Propensi Active Anxiety 2016-0 Metho di ty to 4-14 st adverse [...] [place] reaction 00 MD antonio card [facility] [place] Banana Propensi Active Other (See Other Univ ers ty to Comments) 4-14 reaction( ity of adverse 00:00: s): GI [place] reaction 00 Intoleran MD alvarez ceAbdomin Luz Marina al n painAbdom [facility] in[facility] painAbdom inal pain Budesoni Drug Active Shortness Of Un dequan de-Formo Allergy Breath 4-14 ity of terol 00:00: [place] 00 MD Luz Marina card [facility] [place] Cetirizi Propensi Active Other (See Other Un dequan ne ty to Comments) 4-14 reaction( ity of adverse 00:00: s): GI [place] reaction 00 Intoleran MD alvarez ceMetalli Luz Marina c n tasteMeta Cancer llic Center tasteMeta llic taste Dexlanso Drug Active Diarrhea Univer s prazole Allergy 4-14 ity of 00:00: [place] 00 MD Luz Marina card [facility] Fluticas Drug Active Shortness Of Un dequan one Allergy Breath 4-14 ity of 00:00: [place] 00 MD Luz Marina card Cancer Center Fluticas Propensi Active Anxiety Unive rs one ty to 4-14 ity of Furoate- adverse 00:00: [place] Vilanter reaction 00 MD anam card Cancer Center Latex Drug Active Rash Univers Allergy 4-14 ity of 00:00: [place] 00 MD Luz Marina card [facility] Macrolid Propensi [place] [address] Un dequan e ty to Vomiting 4-14 ity of Antibiot adverse 00:00: [place] ics reaction 00 MD antonio card [facility] Tiotropi Propensi Active Shortness Of 0 Univers um ty to Breath 4-14 ity of [place] adverse 00:00: [place] reaction 00 MD antonio card [facility] Triamter Drug Active Swelling Univer s elena-Hydr Allergy 14 ity of ochlorot 00:00: [place] hiazid 00 MD Luz Marina card [facility] Zileuton Propensi Active Anxiety Unive rs ty to 4-14 ity of adverse 00:00: [place] reaction 00 MD antonio card [facility] CEFDINIR DRUG Active Hallucinates Un dequan INGREDI 4-05 ity of 00:00: [place] 00 Medical Branch Cefdinir Propensi Active Hallucinatio 0 Univers ty to ns 4-05 ity of adverse 00:00: [place] reaction 00 Medical s Branch Cefdinir Propensi Active Hallucinatio 0 Methodi ty to ns 4-05 st adverse [...] Un dequan (Sulfona ty to See comments 4- it y of mide adverse 00:00: [place] [...] AMOXICIL DRUG Active High Other 2012- MD ETRA-POT 4-08 Anderso CLAVULAN 00:00: n [...] AMOXICIL DRUG Active High Other MD TERA-POT -08 Anderso CLAVULAN 00:00: n ATE 00 AMOXICIL DRUG Active High Other MD TERA-POT 4-08 Anderso CLAVULAN 00:00: n ATE 00 SULFA Drug Active High MD (SULFONA Class 4-08 Anderso MIDE 00:00: n ANTIBIOT 00 ICS) LEVOFLOX DRUG Active MD ACIN INGREDI 09-04 Anderso 00:00: n 00 AMOXICIL DRUG Active High Other MD TERA-POT -08 Anderso CLAVULAN 00:00: n ATE 00 SULFA Drug Active High MD (SULFONA Class 4-08 Anderso MIDE 00:00: n ANTIBIOT 00 ICS) LEVOFLOX DRUG Active MD ACIN INGREDI 09-04 Anderso 00:00: n 00 AMOXICIL DRUG Active High Other MD TERA-POT -08 Anderso CLAVULAN 00:00: n ATE 00 Levoflox Propensi Active Altered psychosis Me thodi acin ty to Mental 09-[address] adverse Status 00:00: Hospita reaction 00 l s to drug Amoxicil Propensi Active Other (See Other Un dequan tera-Pot ty to Comments) 09-04 reaction( ity of Clavulan adverse 00:00: s): [place] ate reaction 00 Unknown - MD s See Andeloisao commentsC n [facility] bloodCoug lena up blood [...] Shellfis Active Unknown Commo n h h [facility] 463 Drug Active Unknown Common allergy [facility] [address] Drug Active shortness of Comm on allergy breath [facility] sulfa sulfa Active Memoria drugs drugs l [place] shellfis shellfis Active Memori a h h l [place] Latex Latex Active Memoria l [place] dexlanso dexlanso Active Memori a prazole prazole l Carlos amoxicil amoxicil Active Memori a tera tera l [place] levoFLOX levoFLOX Active Memori a acin acin l [place] fluticas fluticas Active Memori a one one l [place] hydrochl hydrochl Active Memori a orothiaz orothiaz l zeke-tria zeke-tria Rodolfo n mterene mterene cefdinir cefdinir Active Memori a l [place] Food Food Active Memoria Sulfites Sulfites l [place] iodine iodine Active Memoria l [place] budesoni budesoni Active Memori a de-formo de-formo l terol terol [place] Family History Family Member Diagnosis Comments Start Date Stop Date Source Natural father Cancer [facility] Natural father Head and neck Univers ity of cancer [place] [facility] Natural father Lymphoma [facility] MD Garcia [facility] Natural mother [facility] Maternal grandmother Skin cancer Uni versity of [place] Jose [facility] Social History Social Habit Start Date Stop Date Quantity Comments Source History of Tobacco Current Smoker Co m[facility] - Use [facility] Sexual orientation Univer sity of [place] Jose [facility] History SDOH University o f Alcohol Frequency [place] M edical Branch History SDOH University o f Alcohol Std Drinks [facility] History SDOH University o f Alcohol Binge [place] Medic al Branch Exposure to 2022-01-21 2022-01-31 Not sure University of SARS-CoV-2 (event) 00:00:00 17:56:00 [facility] Alcohol intake 2022-01-25 2022-01-25 Current drinker Unive rsity of 00:00:00 00:00:00 of alcohol Luis Garcia [facility] (finding) [facility] History of Social 2022-01-25 2022-01-25 Univers ity of function 00:00:00 00:00:00 Luis Garcia [facility] Tobacco use and 2022-01-13 2022-01-13 Smokeless Universit y of exposure 00:00:00 00:00:00 tobacco non-user [facility] Cigarettes smoked 2022-01-13 2022-01-13 Univers ity of current (pack per 00:00:00 00:00:00 [place] [facility] ) - Reported Cancer Ce nter Cigarette 2022-01-13 2022-01-13 University of pack-years 00:00:00 00:00:00 Luis stein [facility] Tobacco Comment 2021-12-08 2021-12-08 not ready to Univers ity of 00:00:00 00:00:00 quit yet [facility] Alcohol Comment 2021-10-21 2021-10-21 Vodka- nine Methodis t 00:00:00 00:00:00 drinks/day Hospital Social History 2020-08-20 2020-08-20 [facility] tomsujatha 16:08:21 16:08:21 [birth year] At [birth year] Universit y of 00:00:00 00:00:00 Luis stein [facility] Smoking Status Start Date Stop Date Source Tobacco smoking status 2022-05-18 17:04:58 Ninfa Gonzalez Ex-smoker 2022-01-13 00:00:00 2022-01-13 00:00:[address] [facility] Medications Ordered Filled Start Stop Current Ordering Indication Dosage Frequency Signature Comments Components Source Medication Medication Date Date Medication? Clinician (SIG) Name Name UNABLE TO 2022-05 Yes Med Name: Uni vers FIND 1-14 iron ity of 12:15: powder and [place] 17 pectasol daily [facility] diphenhydrA 2022-05 Yes 12.5mg Take 5 mL Univers MINE 1-14 (12.5 mg) ity of (BENADRYL) 12:15: by mouth Sid as 12.5 mg/5 17 every 4 MD mL liquid (four) Anderso hours as n needed. 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 n [facility] predniSONE 2022-05 Yes 10mg Take 1 Unive rs (DELTASONE) 1-13 tablet (10 it y of 10 mg 00:00: mg) by [place] tablet 00 mouth daily. [facility] guaiFENesin guaiFENesin 2022-05 No guaiFENesi 200 MG/5ML 200 MG/5ML 0-20 n 200 00:00: MG/5ML 00 guaiFENesin guaiFENesin 2022-05 No guaiFENesi 200 MG/5ML 200 MG/5ML 0-20 n 200 00:00: MG/5ML 00 guaiFENesin guaiFENesin 2022-05 No guaiFENesi 200 MG/5ML 200 MG/5ML 0-20 n 200 00:00: MG/5ML 00 aztreonam 2022-05- No 1000mg 1,000 mg, Univers (AZACTAM) 0-10 10-11 IV ity of 1,000 mg in 23:45: 00:15 [place], [place] NaCl 0.9% 00 :00 ONCE, 1 Medical (NS) 100 mL dose, On [facility] MINI-BAG Tue03/08/23 at 1845, Administer over 30 [...] On Tue03/08/23 at 1715, STAT Nystatin Nystatin 2022-0 No 4{ml} QID Nystatin 340483 [id number] 8-25 [id number] UNIT/ML UNIT/ML 00:00: UNIT/ML 00 Nystatin Nystatin 2022-0 No 4{ml} QID Nystatin 021550 [id number] 8-25 [id number] UNIT/ML UNIT/ML 00:00: UNIT/ML 00 Nystatin Nystatin 2022-0 No 4{ml} QID Nystatin [id number] 8-25 [id number] UNIT/ML UNIT/ML 00:00: UNIT/ML 00 diazePAM 2022-0 2022- No 2mg Take 1 Univer s (VALIUM) 2 8-15 08-15 tablet (2 ity of mg tablet 15:13: 00:00 mg) by [place] 59 :00 mouth as MD needed. [facility] diazePAM 2022- No 2mg Take 1 Univer s (VALIUM) 2 8-15 08-15 tablet (2 ity of mg tablet 15:13: 00:00 mg) by [place] 59 :00 mouth as MD needed. [facility] diazePAM 2022- No 2mg Take 1 Univer s (VALIUM) 2 8-15 08-15 tablet (2 ity of mg tablet 15:13: 00:00 mg) by [place] 59 :00 mouth as MD needed. 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 [place] [facility] doxycycline 2022- No Squamous 100mg Take 1 Univers (Vibramycin 8-11 11-14 cell capsule ity of ) 100 MG 00:00: 00:00 carcinoma (100 mg) [place] capsule 00 :00 of by mouth esophagus twice Anderso daily. [place] [facility] Doxycycline Doxycycline No 1{capsu BID Doxycyclin [...] ity o f VENTOLIN) 09:34: mg) by [place] 2.5 mg/3 mL 39 nebulizati (0.083%) on every 6 Jose so nebulizer (six) n solution hours. [facility] albuterol Yes 2.5mg Inhale 3 Uni vers (PROVENTIL, 5-09 mL (2.5 ity o f VENTOLIN) 09:34: mg) by Luis 2.5 mg/3 mL 39 nebulizjoel RON (0.083%) on every 6 Jose so nebulizer (six) n solution hours. [facility] albuterol Yes 2.5mg Inhale 3 Uni vers (PROVENTIL, 5-09 mL (2.5 ity o f VENTOLIN) 09:34: mg) by Luis 2.5 mg/3 mL 39 nebulizjoel RON (0.083%) on every 6 Jose so nebulizer (six) n solution hours. [facility] doxycycline 2022- No Squamous 100mg Take 1 Univers (Vibramycin 5 05-24 cell capsule ity of ) 100 MG 00:00: 04:59 carcinoma (100 mg) [place] capsule 00 :00 of by mouth esophagus twice Anderso daily for n 14 days. [facility] doxycycline 2022- No Squamous 100mg Take 1 Univers (Vibramycin 10-05 05-24 cell capsule ity of ) 100 MG 00:00: 04:59 carcinoma (100 mg) [place] capsule 00 :00 of by mouth esophagus twice Anderso daily for n 14 days. [facility] doxycycline 2022- No Squamous 100mg Take 1 Univers (Vibramycin 10-05 05-24 cell capsule ity of ) 100 MG 00:00: 04:59 carcinoma (100 mg) [place] capsule 00 :00 of by mouth esophagus twice Anderso daily for n 14 days. [facility] diphenhydrA 2022- No 25mg Take 25 mg Univers MINE -22 07- by mouth ity of (BENADRYL) 15:41: 00:00 every 8 Sid as 25 mg 43 :00 (eight) MD capsule hours as Anderso needed for n allergies. [facility] diphenhydrA 2022- No 25mg Take 25 mg Univers MINE 2- 02-23 by mouth ity of (BENADRYL) 15:41: 00:00 every 8 Sid as 25 mg 43 :00 (eight) MD capsule hours as Anderso needed for n allergies. Cancer Center diphenhydrA 0 2022- No 25mg Take 25 mg Univers MINE 07-22 by mouth ity of (BENADRYL) 15:41: 00:00 every 8 Sid as 25 mg 43 :00 (eight) MD capsule hours as Anderso needed for n allergies. [facility] Albuterol Albuterol No TID Albuterol Sulfate Sulfate [...] s tablet 00 :00 of mouth 3 esophagus (three) Anderso times a n day. Take Cancer 1 tab 13, Center 7, and 1 hour prior to receiving iodine contrast. Take 50 mg Benadryl within one hour of scan. predniSONE 2021-05- No Squamous 50mg Take 1 Univers (DELTASONE) 06-13 cell tablet (50 i ty of 50 mg 00:00: 00:00 carcinoma mg) [place] tablet 00 :00 of mouth 3 esophagus (three) Anderso times a n day. [...] Carcinoma 200mg Take 1 mL Univers ine 06-12-23 of (200 mg) ity of (MUCOMYST) 00:00: 00:00 esophagus by mouth [place] 200 mg/mL 00 :00 twice MD (20%) daily. Anderso nebulizer n solution [facility] acetylcyste 2021-05- No Carcinoma 200mg Take 1 mL Univers ine 06-12 of (200 mg) ity of (MUCOMYST) 00:00: 00:00 esophagus by mouth [place] 200 mg/mL 00 :00 twice MD (20%) daily. Anderso nebulizer n solution [facility] acetylcyste 2021-05- No Carcinoma 200mg Take 1 mL Univers ine 06-1223 of (200 mg) ity of (MUCOMYST) 00:00: 00:00 esophagus by mouth [place] 200 mg/mL 00 :00 twice MD (20%) daily. Anderso nebulizer n solution [facility] acetylcyste 2021-05- No Obstruction 600mg Take 3 mL Univers ine 06-07 11-10 of trachea (600 mg) ity of (MUCOMYST) 00:00: 00:00 by mouth [place] 200 mg/mL 00 :00 twice MD (20%) daily. Anderso nebulizer n solution [facility] acetylcyste 2021-05- No Obstruction 600mg Take 3 mL Univers ine 06-07 11-10 of trachea (600 mg) ity of (MUCOMYST) 00:00: 00:00 by mouth [place] 200 mg/mL 00 :00 twice MD (20%) daily. Anderso nebulizer n solution [facility] acetylcyste 2021-05- No Carcinoma 200mg Take 1 mL Univers ine 06-06 11-14 of (200 mg) ity of (MUCOMYST) 00:00: 00:00 esophagus by mouth [place] 200 mg/mL 00 :00 twice MD (20%) daily. Anderso nebulizer n [facility] acetylcyste 2021-05 No Carcinoma 200mg Take 1 mL Univers ine 06-06 11-14 of (200 mg) ity of (MUCOMYST) 00:00: 00:00 esophagus by mouth [place] 200 mg/mL 00 :00 twice MD (20%) daily. Anderso nebulizer [facility] predniSONE 2022- No Obstruction Please Univers [...] Mon Branch 01/18/22 at 1915, BRIGIDO doxycycline 2021- No [id number] 100mg Take 1 Univers hyclate 100 01-18 capsule by i ty of mg capsule 00:00: 04:59 mouth in [place] 00 :00 the Medical morning Branch and 1 capsule in the evening. Do all this for 14 days. doxycycline 2021- No [id number] 100mg Take 1 Univers hyclate 100 01-18 capsule by i ty of mg capsule 00:00: 04:59 mouth in [place] 00 :00 the Medical morning Branch and 1 capsule in the evening. Do all this for 14 days. doxycycline 2021- No [id number] 100mg Take 1 Univers hyclate 100 01-18 [...] :00 twice MD (20%) daily. Anderso nebulizer [facility] acetylcyste 2021- No 200mg Take 200 Univers ine 8-16 11-08 mg by ity of (MUCOMYST) 00:00: 00:00 mouth [place] 200 mg/mL 00 :00 twice MD (20%) daily. Anderso nebulizer [facility] tricinolo Yes Apply to Un dequan ne 8-10 area(s) as ity of acetonide 14:01: needed. [place] 0.1 % cream 52 [facility] Yes Apply to Un dequan ne 8-10 area(s) as ity of acetonide 14:01: needed. [place] 0.1 % cream 52 [facility] Yes Apply to Un dequan ne 8-10 area(s) as ity of acetonide 14:01: needed. [place] 0.1 % cream 52 Medical Branch triamcinolo 2022-0 Yes Apply to Un dequan ne 8-10 [...] 0.1 % cream 52 Medical Branch acetylcyste 2-0 Yes [id number] 200mg Inhale 1 Univers ine 200 8-10 [id number] mL in the ity o f mg/mL (20 00:00: morning [place] %) 00 and 1 mL Medical inhalation in the Branch solution evening. acetylcyste 2021-0 Yes [id number] 200mg Inhale 1 Univers ine 200 8-10 [id number] mL in the ity o f mg/mL (20 00:00: morning [place] %) 00 and 1 mL Medical inhalation in the Branch solution evening. acetylcyste 2021-0 Yes [id number] 200mg Inhale 1 Univers ine 200 8-10 [id number] mL in the ity o f mg/mL (20 00:00: morning [place] %) 00 and 1 mL Medical inhalation in the Branch solution evening. acetylcyste 2021-0 Yes [id number] 200mg Inhale 1 Univers ine 200 8-10 [id number] mL in the ity o f mg/mL (20 00:00: morning [place] %) 00 and 1 mL Medical inhalation in the Branch solution evening. acetylcyste 2021-0 Yes [id number] 200mg Inhale 1 Univers ine 200 8-10 [id number] mL in the ity o f mg/mL (20 00:00: morning [place] %) 00 and 1 mL Medical inhalation in the Branch solution evening. acetylcyste 2021-0 Yes [id number] 200mg Inhale 1 Univers ine 200 8-10 [id number] mL in the ity o f mg/mL (20 00:00: morning [place] %) 00 and 1 mL Medical inhalation in the Branch solution evening. acetylcyste 2021-0 Yes [id number] 200mg Inhale 1 Univers ine 200 8-10 [id number] mL in the ity o f mg/mL (20 00:00: morning [place] %) 00 and 1 mL Medical inhalation in the Branch solution evening. acetylcyste 2-0 Yes [id number] 200mg Inhale 1 Univers ine 200 8-10 [id number] mL in the ity o f mg/mL (20 00:00: morning [place] %) 00 and 1 mL Medical inhalation in the Branch solution evening. acetylcyste 2021-0 Yes [id number] 200mg Inhale 1 Univers ine 200 8-10 [id number] mL in the ity o f mg/mL (20 00:00: morning [place] %) 00 and 1 mL Medical inhalation in the Branch solution evening. acetylcyste 2021-0 Yes [id number] 200mg Inhale 1 Univers ine 200 8-10 [id number] mL in the ity o f mg/mL (20 00:00: morning [place] %) 00 and 1 mL Medical inhalation in the Branch solution evening. acetylcyste 2021-0 Yes [id number] 200mg Inhale 1 Univers ine 200 8-10 [id number] mL in the ity o f mg/mL (20 00:00: morning [place] %) 00 and 1 mL Medical inhalation in the Branch solution evening. acetylcyste 2021-0 Yes [id number] 200mg Inhale 1 Univers ine 200 8-10 [id number] mL in the ity o f mg/mL (20 00:00: morning [place] %) 00 and 1 mL Medical inhalation in the Branch solution evening. acetylcyste 2021-0 Yes [id number] 200mg Inhale 1 Univers ine 200 8-10 [id number] mL in the ity o f mg/mL (20 00:00: morning [place] %) 00 and 1 mL Medical inhalation in the Branch solution evening. acetylcyste 2021-0 Yes [id number] 200mg Inhale 1 Univers ine 200 8-10 [id number] mL in the ity o f mg/mL (20 00:00: morning [place] %) 00 and 1 mL Medical inhalation in the Branch solution evening. acetylcyste 2021-0 Yes [id number] 200mg Inhale 1 Univers ine 200 8-10 [id number] mL in the ity o f mg/mL (20 00:00: morning [place] %) 00 and 1 mL Medical inhalation in the Branch solution evening. predniSONE 2021-2021- No [id number] Take 2 Univers 10 mg 8-10 08-26 tablets by ity of tablet pack 00:00: 04:59 [place] 00 :00 daily for Medical 5 days, Branch THEN 1 tablet daily for 5 days, THEN 1 tablet every other day for 5 days. predniSONE 2021-0 2021- No [id number] Take 2 Univers 10 mg 8-10 08-26 tablets by ity of tablet pack 00:00: 04:59 mouth [place] 00 :00 daily for Medical 5 days, Branch THEN 1 tablet daily for 5 days, THEN 1 tablet every other day for 5 days. predniSONE 2021-0 2021- No [id number] Take 2 Univers 10 mg 8-10 08-26 tablets by ity of tablet pack 00:00: 04:59 mouth [place] 00 :00 daily for Medical 5 days, Branch THEN 1 tablet daily for 5 days, THEN 1 tablet every other day for 5 days. albuterol 0 Yes [id number] INHALE 2 Univers (PROAIR 8-07 PUFFS BY ity of HFA) 90 00:00: MOUTH [place] mcg/actuati 00 EVERY 4 Medic al on inhaler HOURS Branc h NEEDED FOR SHORTNESS OF BREATH AND FOR WHEEZING albuterol 0 Yes [id number] INHALE 2 Univers (PROAIR 8-07 PUFFS BY ity of HFA) 90 00:00: MOUTH [place] mcg/actuati 00 EVERY 4 Medic al on inhaler HOURS Branc h NEEDED FOR SHORTNESS OF BREATH AND FOR WHEEZING albuterol 0 Yes [id number] INHALE 2 Univers (PROAIR 8-07 PUFFS BY ity of HFA) 90 00:00: MOUTH [place] mcg/actuati 00 EVERY 4 Medic al on inhaler HOURS Branc h NEEDED FOR SHORTNESS OF BREATH AND FOR WHEEZING albuterol 0 Yes [id number] INHALE 2 Univers (PROAIR 8-07 PUFFS BY ity of HFA) 90 00:00: MOUTH [place] mcg/actuati 00 EVERY 4 Medic al on inhaler HOURS Branc h NEEDED FOR SHORTNESS OF BREATH AND FOR WHEEZING albuterol 2021-0 Yes [id number] INHALE 2 Univers (PROAIR 8-07 PUFFS BY ity of HFA) 90 00:00: MOUTH [place] mcg/actuati 00 EVERY 4 Medic al on inhaler HOURS Branc h NEEDED FOR SHORTNESS OF BREATH AND FOR WHEEZING albuterol 0 Yes [id number] INHALE 2 Univers (PROAIR 8-07 PUFFS BY ity of HFA) 90 00:00: MOUTH [place] mcg/actuati 00 EVERY 4 Medic al on inhaler HOURS Branc h NEEDED FOR SHORTNESS OF BREATH AND FOR WHEEZING albuterol 2021-0 Yes [id number] INHALE 2 Univers (PROAIR 8-07 PUFFS BY ity of HFA) 90 00:00: MOUTH [place] mcg/actuati 00 EVERY 4 Medic al on inhaler HOURS Branc h NEEDED FOR SHORTNESS OF BREATH AND FOR WHEEZING albuterol 0 Yes [id number] INHALE 2 Univers (PROAIR 8-07 PUFFS BY ity of HFA) 90 00:00: MOUTH [place] mcg/actuati 00 EVERY 4 Medic al on inhaler HOURS Branc h NEEDED FOR SHORTNESS OF BREATH AND FOR WHEEZING albuterol 0 Yes [id number] INHALE 2 Univers (PROAIR 8-07 PUFFS BY ity of HFA) 90 00:00: MOUTH [place] mcg/actuati 00 EVERY 4 Medic al on inhaler HOURS Branc h NEEDED FOR SHORTNESS OF BREATH AND FOR WHEEZING albuterol 0 Yes [id number] INHALE 2 Univers (PROAIR 8-07 PUFFS BY ity of HFA) 90 00:00: MOUTH [place] mcg/actuati 00 EVERY 4 Medic al on inhaler HOURS Branc h NEEDED FOR SHORTNESS OF BREATH AND FOR WHEEZING albuterol 2021-0 Yes [id number] INHALE 2 Univers (PROAIR 8-07 PUFFS BY ity of HFA) 90 00:00: MOUTH [place] mcg/actuati 00 EVERY 4 Medic al on inhaler HOURS Branc h NEEDED FOR SHORTNESS OF BREATH AND FOR WHEEZING albuterol 0 Yes [id number] INHALE 2 Univers (PROAIR 8-07 PUFFS BY ity of HFA) 90 00:00: MOUTH [place] mcg/actuati 00 EVERY 4 Medic al on inhaler HOURS Branc h NEEDED FOR SHORTNESS OF BREATH AND FOR WHEEZING albuterol 2021-0 Yes [id number] INHALE 2 Univers (PROAIR 8-07 PUFFS BY ity of HFA) 90 00:00: MOUTH [place] mcg/actuati 00 EVERY 4 Medic al on inhaler HOURS Branc h NEEDED FOR SHORTNESS OF BREATH AND FOR WHEEZING albuterol 2021-0 Yes [id number] INHALE 2 Univers (PROAIR 8-07 PUFFS BY ity of HFA) 90 00:00: MOUTH [place] mcg/actuati 00 EVERY 4 Medic al on inhaler HOURS Branc h NEEDED FOR SHORTNESS OF BREATH AND FOR WHEEZING albuterol 2021-0 Yes [id number] INHALE 2 [facility] (PROAIR 8-07 PUFFS BY ity of HFA) 90 00:00: MOUTH [place] mcg/actuati 00 EVERY 4 Medic al on inhaler HOURS Branc h NEEDED FOR SHORTNESS OF BREATH AND FOR WHEEZING ProAir HFA Yes INHALE 2 Uni vers [...] FOR n SHORTNESS Cancer OF BREATH [facility] benzonatate Yes [id number] 100mg Take 1 [facility] (TESSALON 7-29 capsule by ity of PERLES) 100 00:00: mouth [place] mg capsule 00 every 8 Medica l (eight) Branch hours as needed for Cough. benzonatate Yes [id number] 100mg Take 1 [facility] (TESSALON 7-29 capsule by ity of PERLES) 100 00:00: mouth [place] mg capsule 00 every 8 Medica l (eight) Branch hours as needed for Cough. benzonatate Yes [id number] 100mg Take 1 [facility] (TESSALON 7-29 capsule by ity of PERLES) 100 00:00: mouth [place] mg capsule 00 every 8 Medica l (eight) Branch hours as needed for Cough. benzonatate Yes [id number] 100mg Take 1 [facility] (TESSALON 7-29 capsule by ity of PERLES) 100 00:00: mouth [place] mg capsule 00 every 8 Medica l (eight) Branch hours as needed for Cough. benzonatate Yes [id number] 100mg Take 1 [facility] (TESSALON 7-29 capsule by ity of PERLES) 100 00:00: mouth [place] mg capsule 00 every 8 Medica l (eight) Branch hours as needed for Cough. benzonatate Yes [id number] 100mg Take 1 [facility] (TESSALON 7-29 capsule by ity of PERLES) 100 00:00: mouth [place] mg capsule 00 every 8 Medica l (eight) Branch hours as needed for Cough. benzonatate 2021-0 Yes [id number] 100mg Take 1 [facility] (TESSALON 7-29 capsule by ity of PERLES) 100 00:00: mouth [place] mg capsule 00 every 8 Medica l (eight) Branch hours as needed for Cough. benzonatate 0 Yes [id number] 100mg Take 1 [facility] (TESSALON 7-29 capsule by ity of PERLES) 100 00:00: mouth [place] mg capsule 00 every 8 Medica l (eight) Branch hours as needed for Cough. benzonatate 0 Yes [id number] 100mg Take 1 [facility] (TESSALON 7-29 capsule by ity of PERLES) 100 00:00: mouth [place] mg capsule 00 every 8 Medica l (eight) Branch hours as needed for Cough. benzonatate 2021-0 Yes [id number] 100mg Take 1 [facility] (TESSALON 7-29 capsule by ity of PERLES) 100 00:00: mouth [place] mg capsule 00 every 8 Medica l (eight) Branch hours as needed for Cough. benzonatate 0 Yes [id number] 100mg Take 1 [facility] (TESSALON 7-29 capsule by ity of PERLES) 100 00:00: mouth [place] mg capsule 00 every 8 Medica l (eight) Branch hours as needed for Cough. benzonatate 2021-0 Yes [id number] 100mg Take 1 [facility] (TESSALON 7-29 capsule by ity of PERLES) 100 00:00: mouth [place] mg capsule 00 every 8 Medica l (eight) Branch hours as needed for Cough. benzonatate 2021-0 Yes [id number] 100mg Take 1 [facility] (TESSALON 7-29 capsule by ity of PERLES) 100 00:00: mouth [place] mg capsule 00 every 8 Medica l (eight) Branch hours as needed for Cough. benzonatate 2021-0 Yes [id number] 100mg Take 1 [facility] (TESSALON 7-29 capsule by ity of PERLES) 100 00:00: mouth [place] mg capsule 00 every 8 Medica l (eight) Branch hours as needed for Cough. benzonatate Yes [id number] 100mg Take 1 [facility] (TESSALON 7-29 capsule by [facility]) 100 00:00: mouth [place] mg capsule 00 every 8 Medica l (eight) Branch hours as needed for Cough. doxycycline Yes 0 [facility] hyclate 100 7-08 Refill(s) l mg oral 20:02: [place] tablet 00 doxycycline Yes 0 [facility] hyclate 100 7-08 Refill(s) l mg oral 20:02: [place] tablet 00 doxycycline Yes 0 [facility] a hyclate 100 7-08 Refill(s) l mg oral 20:02: [place] tablet 00 doxycycline Yes 0 [facility] hyclate 100 7-08 Refill(s) l mg oral 20:02: [place] tablet 00 doxycycline Yes 0 [facility] hyclate 100 7-08 Refill(s) l mg oral 20:02: [place] tablet 00 doxycycline Yes 0 [facility] hyclate 100 7-08 Refill(s) l mg oral 20:02: [place] tablet 00 doxycycline Yes 0 [facility] hyclate 100 7-08 Refill(s) l mg oral 20:02: [place] tablet 00 doxycycline Yes 0 [facility] hyclate 100 7-08 Refill(s) l mg oral 20:02: [place] tablet 00 doxycycline 0 Yes 0 [facility] hyclate 100 7-08 Refill(s) l mg oral 20:02: [place] tablet 00 doxycycline 0 Yes 0 [facility] hyclate 100 7-08 Refill(s) l mg oral 20:02: [place] tablet 00 doxycycline 0 Yes 0 [facility] hyclate 100 7-08 Refill(s) l mg oral 20:02: [place] tablet 00 doxycycline 0 Yes 0 [facility] hyclate 100 7-08 Refill(s) l mg oral 20:02: [place] tablet 00 gabapentin Yes 300 mg = 6 M em[facility] 250 mg/5 mL 6-10 mL, PO, l oral 15:16: BID, # 360 [place] solution 00 mL, 2 Refill(s), Pharmacy: [facility], 160.02, cm, 11/05/21 14:43:00 CDT, Height, 102.727, kg, 11/05/21 14:43:00 CDT, Weight gabapentin 2022-0 Yes 300 mg = 6 M emoria 250 mg/5 mL 6-10 mL, PO, l oral 15:16: BID, # 360 [place] solution 00 mL, 2 Refill(s), Pharmacy: [facility], 160.02, cm, 11/05/21 14:43:00 CDT, Height, 102.727, kg, 11/05/21 14:43:00 CDT, Weight gabapentin 2022-0 Yes 300 mg = 6 M emoria 250 mg/5 mL 6-10 mL, PO, l oral 15:16: BID, # 360 [place] solution 00 mL, 2 Refill(s), Pharmacy: [facility], 160.02, cm, 11/05/21 14:43:00 CDT, Height, 102.727, kg, 11/05/21 14:43:00 CDT, Weight gabapentin 2022-0 Yes 300 mg = 6 M emoria 250 mg/5 mL 6-10 mL, PO, l oral 15:16: BID, # 360 [place] solution 00 mL, 2 Refill(s), Pharmacy: [facility], 160.02, cm, 11/05/21 14:43:00 CDT, Height, 102.727, kg, 11/05/21 14:43:00 CDT, Weight gabapentin 2022-0 Yes 300 mg = 6 M emoria 250 mg/5 mL 6-10 mL, PO, l oral 15:16: BID, # 360 [place] solution 00 mL, 2 Refill(s), Pharmacy: [facility], 160.02, cm, 11/05/21 14:43:00 CDT, Height, 102.727, kg, 11/05/21 14:43:00 CDT, Weight gabapentin 2022-0 Yes 300 mg = 6 M emoria 250 mg/5 mL 6-10 mL, PO, l oral 15:16: BID, # 360 [place] solution 00 mL, 2 Refill(s), Pharmacy: [facility], 160.02, cm, 11/05/21 14:43:00 CDT, Height, 102.727, kg, 11/05/21 14:43:00 CDT, Weight gabapentin 2022-0 Yes 300 mg = 6 M [facility] 250 mg/5 mL 6-10 mL, PO, l oral 15:16: BID, # 360 [place] solution 00 mL, 2 Refill(s), Pharmacy: [facility], 160.02, cm, 11/05/21 14:43:00 CDT, Height, 102.727, kg, 11/05/21 14:43:00 CDT, Weight gabapentin 2022-0 Yes 300 mg = 6 M [facility] 250 mg/5 mL 6-10 mL, PO, l oral 15:16: BID, # 360 [place] solution 00 mL, 2 Refill(s), Pharmacy: [facility], 160.02, cm, 11/05/21 14:43:00 CDT, Height, 102.727, kg, 11/05/21 14:43:00 CDT, Weight gabapentin 2022-0 Yes 300 mg = 6 M em[facility] 250 mg/5 mL 6-10 mL, PO, l oral 15:16: BID, # 360 [place] solution 00 mL, 2 Refill(s), Pharmacy: [facility], 160.02, cm, 11/05/21 14:43:00 CDT, Height, 102.727, kg, 11/05/21 14:43:00 CDT, Weight gabapentin 2022-0 Yes 300 mg = 6 M emoria 250 mg/5 mL 6-10 mL, PO, l oral 15:16: BID, # 360 [place] solution 00 mL, 2 Refill(s), Pharmacy: [facility], 160.02, cm, 11/05/21 14:43:00 CDT, Height, 102.727, kg, 11/05/21 14:43:00 CDT, Weight gabapentin 2022-0 Yes 300 mg = 6 M emoria 250 mg/5 mL 6-10 mL, PO, l oral 15:16: BID, # 360 [place] solution 00 mL, 2 Refill(s), Pharmacy: [facility], 160.02, cm, 11/05/21 14:43:00 CDT, Height, 102.727, kg, 11/05/21 14:43:00 CDT, Weight gabapentin Yes 300 mg = 6 M emoria 250 mg/5 mL 6-10 mL, PO, l oral 15:16: BID, # 360 [place] solution 00 mL, 2 Refill(s), Pharmacy: [facility], 160.02, cm, 11/05/21 14:43:00 CDT, Height, 102.727, kg, 11/05/21 14:43:00 CDT, Weight gabapentin Yes [facility] (NEURONTIN[facility]-07 [facility] 600 mg 12:44: [facility] tablet 17 l gabapentin Yes [facility] (NEURONTIN) 6-07 [facility] 600 mg 12:44: [facility] tablet 17 l albuterol 0 Yes Q8H every 8 [facility] di (ACCUNEB) 6-02 (eight) st 2.5 mg /3 00:00: hours [facility] mL (0.083 00 needed. l %) nebulizer solution albuterol Yes Q8H every 8 Metho di (ACCUNEB) 6-02 (eight) st 2.5 mg /3 00:00: hours [...] MG 00:00: 00:00 00 :00 predniSONE predniSONE No QD predniSONE 10 MG 10 MG 8-03 10 MG 00:00: 00 predniSONE predniSONE No QD predniSONE 10 MG 10 MG 8-03 10 MG 00:00: 00 predniSONE predniSONE No QD predniSONE 10 MG 10 MG 8-03 10 MG 00:00: 00 predniSONE predniSONE No QD predniSONE 10 MG [...] 00:00: 00 predniSONE 2020-0 Yes [facility] (DELTASONE) 8-03 st 10 mg 00:00: [facility]osp[facility] tablet 00 l predniSONE predniSONE 2020-0 No QD predniSONE 10 MG 10 MG 8-03 10 MG 00:00: 00 predniSONE predniSONE 2020-0 No QD predniSONE 10 MG 10 MG 8-03 10 MG 00:00: 00 predniSONE 2020-0 Yes [facility] (DELTASONE) 8-03 st 10 mg 00:00: [facility]osp[facility] tablet 00 l gabapentin 2020-0 Yes See [facility] 600 MG Oral 4-07 [facility] l Tablet 14:26: ns, 1/2 [place] 00 tab po bid, # 30 tab, 3 Refill(s), Pharmacy: [facility], 162.56, cm, 08/20/20 11:01:00 CDT, Height, 120.909, kg, 09/03/20 8:30:00 CDT, Weight gabapentin 2020-0 Yes See [facility] 600 MG Oral 4-07 Instructio l Tablet 14:26: ns, 1/2 [place] 00 tab po bid, # 30 tab, 3 Refill(s), Pharmacy: [facility], 162.56, cm, 08/20/20 11:01:00 CDT, Height, 120.909, kg, 09/03/20 8:30:00 CDT, Weight gabapentin 2020-0 Yes See [facility] 600 MG Oral 4-07 Instructio l Tablet 14:26: ns, 1/2 [place] 00 tab po bid, # 30 tab, 3 Refill(s), Pharmacy: [facility], 162.56, cm, 08/20/20 11:01:00 CDT, Height, 120.909, kg, 09/03/20 8:30:00 CDT, Weight gabapentin 202-0 Yes See [facility] 600 MG Oral 4-07 Instructio l Tablet 14:26: ns, 1/2 [place] 00 tab po bid, # 30 tab, 3 Refill(s), Pharmacy: [facility], 162.56, cm, 08/20/20 11:01:00 CDT, Height, 120.909, kg, 09/03/20 8:30:00 CDT, Weight gabapentin 2021-0 Yes See [facility] 600 MG Oral 4-07 Instructio l Tablet 14:26: ns, 12 [place] 00 tab po bid, # 30 tab, 3 Refill(s), Pharmacy: [facility], 162.56, cm, 08/20/20 11:01:00 CDT, Height, 120.909, kg, 09/03/20 8:30:00 CDT, Weight gabapentin 2021-0 Yes See [facility] 600 MG Oral 4-07 Instructio l Tablet 14:26: ns, 12 [place] 00 tab po bid, # 30 tab, 3 Refill(s), Pharmacy: [facility], 162.56, cm, 08/20/20 11:01:00 CDT, Height, 120.909, kg, 09/03/20 8:30:00 CDT, Weight gabapentin 2021-0 Yes See [facility] 600 MG Oral 4-07 Instructio l Tablet 14:26: ns, 05/31 [place] 00 tab po bid, # 30 tab, 3 Refill(s), Pharmacy: [facility], 162.56, cm, 08/20/20 11:01:00 CDT, Height, 120.909, kg, 09/03/20 8:30:00 CDT, Weight gabapentin 2021-0 Yes See [facility] 600 MG Oral 4-07 Instructio l Tablet 14:26: ns, 05/31 [place] 00 tab po bid, # 30 tab, 3 Refill(s), Pharmacy: [facility], 162.56, cm, 08/20/20 11:01:00 CDT, Height, 120.909, kg, 09/03/20 8:30:00 CDT, Weight gabapentin 2021-0 Yes See [facility] 600 MG Oral 4-07 Instructio l Tablet 14:26: ns, 2 [place] 00 tab po bid, # 30 tab, 3 Refill(s), Pharmacy: [facility], 162.56, cm, 08/20/20 11:01:00 CDT, Height, 120.909, kg, 09/03/20 8:30:00 CDT, Weight gabapentin 2021-0 Yes See [facility] 600 MG Oral 4-07 Instructio l Tablet 14:26: ns, 05/31 [place] 00 tab po bid, # 30 tab, 3 Refill(s), Pharmacy: [facility], 162.56, cm, 08/20/20 11:01:00 CDT, Height, 120.909, kg, 09/03/20 8:30:00 CDT, Weight gabapentin 2021-0 Yes See [facility] 600 MG Oral 4-07 Instructio l Tablet 14:26: ns, 05/31 [place] 00 tab po bid, # 30 tab, 3 Refill(s), Pharmacy: [facility], 162.56, cm, 08/20/20 11:01:00 CDT, Height, 120.909, kg, 09/03/20 8:30:00 CDT, Weight gabapentin 1-0 Yes See [facility] 600 MG Oral 4-07 Instructio l Tablet 14:26: ns, 05/31 [place] 00 tab po bid, # 30 tab, 3 Refill(s), Pharmacy: [facility], 162.56, cm, 08/20/20 11:01:00 CDT, [...] 15 Topical gm, 0 Cream Refill(s) Triamcinolo 1-0 Yes 1 appl, Mem oria ne 3-24 TOP, BID, l Acetonide 1 16:22: PRN For Her ramirez MG/ML 00 rash, # 15 Topical gm, 0 Cream Refill(s) Triamcinolo 2021-0 Yes 1 appl, Mem oria ne 3-24 [...] # 15 Topical gm, 0 Cream Refill(s) [facility] Kenalog 2019- No 40mg Common (Triamcinol (Triamcinol 2-17 S pirit one) one) 00:00: - CHI 00 [facility] Kenalog Kenalog 2019- No 40mg Common (Triamcinol (Triamcinol 2-17 S pirit one) one) 00:00: - CHI 00 [facility] Kenalog Kenalog 2019- No 40mg Common (Triamcinol (Triamcinol 2-17 S pirit one) one) 00:00: - [facility]I 00 [facility] Kenalog Kenalog 2019- No 40mg Common (Triamcinol (Triamcinol 2-17 S pirit one) one) 00:00: - [facility] 00 [facility] Ken[facility] 2019- No 40mg Common (Triamcinol (Triamcinol 2-17 S pirit one) one) 00:00: - [facility] 00 [facility] Kenalog 2019- No 40mg Common (Triamcinol (Triamcinol 2-17 S pirit one) one) 00:00: - [facility] 00 [facility] Kenalog 2019- No 40mg Common (Triamcinol (Triamcinol 2-17 S pirit one) one) 00:00: - [facility] 00 [facility] Kenalog 2019- No 40mg Common (Triamcinol (Triamcinol 2-17 S pirit one) one) 00:00: - [facility]I 00 [facility] Kenalog Kenalog 2019- No 40mg Common (Triamcinol (Triamcinol 2-17 S pirit one) one) 00:00: - [facility]I 00 [facility] Kenalog Kenalog 2019- No 40mg Common (Triamcinol (Triamcinol 2-17 S pirit one) one) 00:00: - [facility]I 00 [facility] Kenalog Kenalog 2019- No 40mg Common (Triamcinol (Triamcinol 2-17 S pirit one) one) 00:00: - [facility]I 00 [facility] Kenalog Kenalog 2019- No 40mg Common (Triamcinol (Triamcinol 2-17 S pirit one) one) 00:00: - [facility]I 00 [facility] Kenalog Kenalog 2019- No 40mg Common (Triamcinol (Triamcinol 2-17 S pirit one) one) 00:00: - [facility]I 00 [facility] Kenalog Kenalog 2019- No 40mg Common (Triamcinol (Triamcinol 2-17 S pirit one) one) 00:00: - CHI 00 [facility] Kenalog Kenalog 2019- No 40mg Common (Triamcinol (Triamcinol 2-17 S pirit one) one) 00:00: - [facility]I 00 [facility] Kenalog Kenalog 2019- No 40mg Common (Triamcinol (Triamcinol 2-17 S pirit one) one) 00:00: - [facility]I 00 [facility] Kenalog Kenalog 2019- No 40mg Common (Triamcinol (Triamcinol 2-17 S pirit one) one) 00:00: - CHI 00 [facility] Kenalog Kenalog 2019- No 40mg Common (Triamcinol (Triamcinol 2-17 S pirit one) one) 00:00: - CHI 00 [facility] Kenalog Kenalog 2019- No 40mg Common (Triamcinol (Triamcinol 2-17 S pirit one) one) 00:00: - CHI 00 [facility] Kenalog Kenalog 2019- No 40mg Common (Triamcinol (Triamcinol 2-17 S pirit one) one) 00:00: - CHI 00 [facility] Kenalog Kenalog 2019- No 40mg Common (Triamcinol (Triamcinol 2-17 S pirit one) one) 00:00: - [facility]I 00 [facility] Kenalog Kenalog 2019- No 40mg Common (Triamcinol (Triamcinol 2-17 S pirit one) one) 00:00: - CHI 00 [facility] Kenalog Kenalog 2019- No 40mg Common (Triamcinol (Triamcinol 2-17 S pirit one) one) 00:00: - CHI 00 [facility] Kenalog Kenalog 2019- No 40mg Common (Triamcinol (Triamcinol 2-17 S pirit one) one) 00:00: - CHI 00 [facility] Kenalog Kenalog 2019- No 40mg Common (Triamcinol (Triamcinol 2-17 S pirit one) one) 00:00: - CHI 00 [facility] Kenalog Kenalog 2019- No 40mg Common (Triamcinol (Triamcinol 2-17 S pirit one) one) 00:00: - CHI 00 [facility] Kenalog Kenalog 2019- No 40mg Common (Triamcinol (Triamcinol 2-17 S pirit one) one) 00:00: - CHI 00 [facility] Kenalog Kenalog 2019- No 40mg Common (Triamcinol (Triamcinol 2-17 S pirit one) one) 00:00: - CHI 00 [facility] Kenalog Kenalog 2019- No 40mg Common (Triamcinol (Triamcinol 2-17 S pirit one) one) 00:00: - CHI 00 [facility] Cyclobenzap Cyclobenzap 2020- No 1{table Cyclobenza rine [...] 5 MG 00 s_neede d} [facility] Kenalog 2019- No 40mg Common (Triamcinol (Triamcinol 2-03 S pirit one) one) 00:00: - CHI 00 [facility] Kenalog Kenalog 2019- No 40mg Common (Triamcinol (Triamcinol 2-03 S pirit one) one) 00:00: - CHI 00 [facility] Kenalog Kenalog 2019- No 40mg Common (Triamcinol (Triamcinol 2-03 S pirit one) one) 00:00: - CHI 00 [facility] Kenalog 2019- No 40mg Common (Triamcinol (Triamcinol 2-03 S pirit one) one) 00:00: - CHI 00 [facility] Kenalog Kenalog 2019- No 40mg Common (Triamcinol (Triamcinol 2-03 S pirit one) one) 00:00: - CHI 00 [facility] Kenalog Kenalog 2019- No 40mg Common (Triamcinol (Triamcinol 2-03 S pirit one) one) 00:00: - [facility] 00 [facility] Kenalog 2019- No 40mg Common (Triamcinol (Triamcinol 2-03 S pirit one) one) 00:00: - CHI 00 [facility] Kenalog Kenalog 2019- No 40mg Common (Triamcinol (Triamcinol 2-03 S pirit one) one) 00:00: - CHI 00 [facility] Kenalog Kenalog 2019- No 40mg Common (Triamcinol (Triamcinol 2-03 S pirit one) one) 00:00: - [facility]I 00 [facility] Kenalog Kenalog 2019- No 40mg Common (Triamcinol (Triamcinol 2-03 S pirit one) one) 00:00: - CHI 00 [facility] Kenalog Kenalog 2019- No 40mg Common (Triamcinol (Triamcinol 2-03 S pirit one) one) 00:00: - [facility]I 00 [facility] Kenalog Kenalog 2020- No 40mg Common (Triamcinol (Triamcinol 2-03 S pirit one) one) 00:00: - CHI 00 [facility] Kenalog Kenalog 2019- No 40mg Common (Triamcinol (Triamcinol 2-03 S pirit one) one) 00:00: - CHI 00 [facility] Kenalog Kenalog 2019- No 40mg Common (Triamcinol (Triamcinol 2-03 S pirit one) one) 00:00: - CHI 00 [facility] Kenalog Kenalog 2019- No 40mg Common (Triamcinol (Triamcinol 2-03 S pirit one) one) 00:00: - [facility]I 00 [facility] Kenalog Kenalog 2019- No 40mg Common (Triamcinol (Triamcinol 2-03 S pirit one) one) 00:00: - CHI 00 [facility] Kenalog Kenalog 2019- No 40mg Common (Triamcinol (Triamcinol 2-03 S pirit one) one) 00:00: - [facility]I 00 [facility] Kenalog Kenalog 2019- No 40mg Common (Triamcinol (Triamcinol 2-03 S pirit one) one) 00:00: - [facility]I 00 [facility] Kenalog Kenalog 2019- No 40mg Common (Triamcinol (Triamcinol 2-03 S pirit one) one) 00:00: - [facility]I 00 [facility] Kenalog Kenalog 2019- No 40mg Common (Triamcinol (Triamcinol 2-03 S pirit one) one) 00:00: - CHI 00 [facility] Kenalog Kenalog 2020- No 40mg Common (Triamcinol (Triamcinol 2-03 S pirit one) one) 00:00: - CHI 00 [facility] Kenalog Kenalog 2020- No 40mg Common (Triamcinol (Triamcinol 2-03 S pirit one) one) 00:00: - [facility]I 00 [facility] Kenalog Kenalog 2020- No 40mg Common (Triamcinol (Triamcinol 2-03 S pirit one) one) 00:00: - CHI 00 [facility] Kenalog Kenalog 2020- No 40mg Common (Triamcinol (Triamcinol 2-03 S pirit one) one) 00:00: - [facility]I 00 [facility] Kenalog Kenalog 2019- No 40mg Common (Triamcinol (Triamcinol 2-03 S pirit one) one) 00:00: - [facility]I 00 [facility] Kenalog Kenalog 2019- No 40mg Common (Triamcinol (Triamcinol 2-03 S pirit one) one) 00:00: - [facility]I 00 [facility] Kenalog Kenalog 2019- No 40mg Common (Triamcinol (Triamcinol 2-03 S pirit one) one) 00:00: - [facility] 00 [facility] Kenalog Kenalog 2019- No 40mg Common (Triamcinol (Triamcinol 2-03 S pirit one) one) 00:00: - [facility] 00 [facility] Kenalog Kenalog 2019- No 40mg Common (Triamcinol (Triamcinol 2-03 S pirit one) one) 00:00: - [facility]I 00 [facility] Kenalog Kenalog 2019- No 40mg Common (Triamcinol (Triamcinol 1-18 S pirit one) one) 00:00: - [facility] 00 [facility] Kenalog Kenalog 2019- No 40mg Common (Triamcinol (Triamcinol 1-18 S pirit one) one) 00:00: - [facility]I 00 [facility] Kenalog Kenalog 2019- No 40mg Common (Triamcinol (Triamcinol 1-18 S pirit one) one) 00:00: - [facility] 00 [facility] Kenalog Kenalog 2019- No 40mg Common (Triamcinol (Triamcinol 1-18 S pirit one) one) 00:00: - [facility] 00 [facility] Kenalog Kenalog 2019- No 40mg Common (Triamcinol (Triamcinol 1-18 S pirit one) one) 00:00: - [facility] 00 [facility] Kenalog Kenalog 2019- No 40mg Common (Triamcinol (Triamcinol 1-18 S pirit one) one) 00:00: - [facility] 00 [facility] Kenalog Kenalog 2019- No 40mg Common (Triamcinol (Triamcinol 1-18 S pirit one) one) 00:00: - CHI 00 [facility] Kenalog Kenalog 2019- No 40mg Common (Triamcinol (Triamcinol 1-18 S pirit one) one) 00:00: - [facility]I 00 [facility] Kenalog Kenalog 2019- No 40mg Common (Triamcinol (Triamcinol 1-18 S pirit one) one) 00:00: - [facility]I 00 [facility] Kenalog Kenalog 2019- No 40mg Common (Triamcinol (Triamcinol 1-18 S pirit one) one) 00:00: - [facility]I 00 [facility] Kenalog Kenalog 2019- No 40mg Common (Triamcinol (Triamcinol 1-18 S pirit one) one) 00:00: - CHI 00 [facility] Kenalog Kenalog 2019- No 40mg Common (Triamcinol (Triamcinol 1-18 S pirit one) one) 00:00: - [facility]I 00 [facility] Kenalog Kenalog 2019- No 40mg Common (Triamcinol (Triamcinol 1-18 S pirit one) one) 00:00: - [facility]I 00 [facility] Kenalog Kenalog 2019- No 40mg Common (Triamcinol (Triamcinol 1-18 S pirit one) one) 00:00: - [facility] 00 [facility] Kenalog Kenalog 2019- No 40mg Common (Triamcinol (Triamcinol 1-18 S pirit one) one) 00:00: - [facility]I 00 [facility] Kenalog Kenalog 2019- No 40mg Common (Triamcinol (Triamcinol 1-18 S pirit one) one) 00:00: - [facility]I 00 [facility] Kenalog Kenalog 2019- No 40mg Common (Triamcinol (Triamcinol 1-18 S pirit one) one) 00:00: - [facility] 00 [facility] Kenalog Kenalog 2019- No 40mg Common (Triamcinol (Triamcinol 1-18 S pirit one) one) 00:00: - [facility]I 00 [facility] Kenalog Kenalog 2019- No 40mg Common (Triamcinol (Triamcinol 1-18 S pirit one) one) 00:00: - [facility]I 00 [facility] Kenalog Kenalog 2019- No 40mg Common (Triamcinol (Triamcinol 1-18 S pirit one) one) 00:00: - [facility] 00 [facility] Kenalog Kenalog 2019- No 40mg Common (Triamcinol (Triamcinol 1-18 S pirit one) one) 00:00: - [facility] 00 [facility] Kenalog Kenalog 2019- No 40mg Common (Triamcinol (Triamcinol 1-18 S pirit one) one) 00:00: - [facility] 00 [facility] Kenalog Kenalog 2019- No 40mg Common (Triamcinol (Triamcinol 1-18 S pirit one) one) 00:00: - [facility] 00 [facility] Kenalog Kenalog 2019- No 40mg Common (Triamcinol (Triamcinol 1-18 S pirit one) one) 00:00: - [facility] Kenalog Kenalog 2019- No 40mg Common (Triamcinol (Triamcinol 1-18 S pirit one) one) 00:00: - [facility] Kenalog Kenalog 2019- No 40mg Common (Triamcinol (Triamcinol 1-18 S pirit one) one) 00:00: - [facility] Kenalog Kenalog 2019- No 40mg Common (Triamcinol (Triamcinol 1-18 S pirit one) one) 00:00: - [facility] Kenalog Kenalog 2019- No 40mg Common (Triamcinol (Triamcinol 1-18 S pirit one) one) 00:00: - [facility] Kenalog Kenalog 2019- No 40mg Common (Triamcinol (Triamcinol 1-18 S pirit one) one) 00:00: - [facility] Kenalog Kenalog 2019- No 40mg Common (Triamcinol (Triamcinol 0-30 S pirit one) one) 00:00: - [facility] Kenalog Kenalog 2019- No 40mg Common (Triamcinol (Triamcinol 0-30 S pirit one) one) 00:00: - [facility] Kenalog Kenalog 2019- No 40mg Common (Triamcinol (Triamcinol 0-30 S pirit one) one) 00:00: - [facility] 00 [facility] Kenalog Kenalog 2019- No 40mg Common (Triamcinol (Triamcinol 0-30 S pirit one) one) 00:00: - [facility] 00 [facility] Kenalog Kenalog 2019- No 40mg Common (Triamcinol (Triamcinol 0-30 S pirit one) one) 00:00: - [facility]I 00 [facility] Kenalog Kenalog 2019-05 No 40mg Common (Triamcinol (Triamcinol 0-30 S pirit one) one) 00:00: - [facility]I 00 [facility] Kenalog Kenalog 2019- No 40mg Common (Triamcinol (Triamcinol 0-30 S pirit one) one) 00:00: - [facility]I 00 [facility] Kenalog Kenalog 2019- No 40mg Common (Triamcinol (Triamcinol 0-30 S pirit one) one) 00:00: - [facility]I 00 [facility] Kenalog Kenalog 2019- No 40mg Common (Triamcinol (Triamcinol 0-30 S pirit one) one) 00:00: - [facility]I 00 [facility] Kenalog Kenalog 2019- No 40mg Common (Triamcinol (Triamcinol 0-30 S pirit one) one) 00:00: - [facility]I 00 [facility] Kenalog Kenalog 2019- No 40mg Common (Triamcinol (Triamcinol 0-30 S pirit one) one) 00:00: - [facility]I 00 [facility] Kenalog Kenalog 2019- No 40mg Common (Triamcinol (Triamcinol 0-30 S pirit one) one) 00:00: - [facility]I 00 [facility] Kenalog Kenalog 2019- No 40mg Common (Triamcinol (Triamcinol 0-30 S pirit one) one) 00:00: - [facility]I 00 [facility] Kenalog Kenalog 2019- No 40mg Common (Triamcinol (Triamcinol 0-30 S pirit one) one) 00:00: - CHI 00 [facility] Kenalog Kenalog 2019- No 40mg Common (Triamcinol (Triamcinol 0-30 S pirit one) one) 00:00: - [facility]I 00 [facility] Kenalog Kenalog 2019- No 40mg Common (Triamcinol (Triamcinol 0-30 S pirit one) one) 00:00: - [facility]I 00 [facility] Kenalog Kenalog 2019- No 40mg Common (Triamcinol (Triamcinol 0-30 S pirit one) one) 00:00: - [facility]I 00 [facility] Kenalog Kenalog 2019- No 40mg Common (Triamcinol (Triamcinol 0-30 S pirit one) one) 00:00: - [facility]I 00 [facility] Kenalog Kenalog 2019- No 40mg Common (Triamcinol (Triamcinol 0-30 S pirit one) one) 00:00: - [facility]I 00 [facility] Kenalog Kenalog 2019- No 40mg Common (Triamcinol (Triamcinol 0-30 S pirit one) one) 00:00: - [facility]I 00 [facility] Kenalog Kenalog 2019- No 40mg Common (Triamcinol (Triamcinol 0-30 S pirit one) one) 00:00: - [facility]I 00 [facility] Kenalog Kenalog 2019- No 40mg Common (Triamcinol (Triamcinol 0-30 S pirit one) one) 00:00: - [facility]I 00 [facility] Kenalog Kenalog 2019- No 40mg Common (Triamcinol (Triamcinol 0-30 S pirit one) one) 00:00: - [facility]I 00 [facility] Kenalog Kenalog 2019- No 40mg Common (Triamcinol (Triamcinol 0-30 S pirit one) one) 00:00: - [facility]I 00 [facility] Kenalog Kenalog 2019- No 40mg Common (Triamcinol (Triamcinol 0-30 S pirit one) one) 00:00: - CHI 00 [facility] Kenalog Kenalog 2019- No 40mg Common (Triamcinol (Triamcinol 0-30 S pirit one) one) 00:00: - CHI 00 [facility] Kenalog Kenalog 2019- No 40mg Common (Triamcinol (Triamcinol 0-30 S pirit one) one) 00:00: - CHI 00 [facility] Kenalog Kenalog 2019- No 40mg Common (Triamcinol (Triamcinol 0-30 S pirit one) one) 00:00: - CHI 00 [facility] Kenalog Kenalog 2019- No 40mg Common (Triamcinol (Triamcinol 0-30 S pirit one) one) 00:00: - [facility]I 00 [facility] Kenalog Kenalog 2019- No 40mg Common (Triamcinol (Triamcinol 0-16 S pirit one) one) 00:00: - CHI 00 [facility] Kenalog Kenalog 2019- No 40mg Common (Triamcinol (Triamcinol 0-16 S pirit one) one) 00:00: - CHI 00 [facility] Kenalog Kenalog 2019- No 40mg Common (Triamcinol (Triamcinol 0-16 S pirit one) one) 00:00: - CHI 00 [facility] Kenalog Kenalog 2019- No 40mg Common (Triamcinol (Triamcinol 0-16 S pirit one) one) 00:00: - CHI 00 [facility] Kenalog Kenalog 2019- No 40mg Common (Triamcinol (Triamcinol 0-16 S pirit one) one) 00:00: - CHI 00 [facility] Kenalog Kenalog 2019- No 40mg Common (Triamcinol (Triamcinol 0-16 S pirit one) one) 00:00: - CHI 00 [facility] Kenalog Kenalog 2019- No 40mg Common (Triamcinol (Triamcinol 0-16 S pirit one) one) 00:00: - CHI 00 [facility] Kenalog Kenalog 2019- No 40mg Common (Triamcinol (Triamcinol 0-16 S pirit one) one) 00:00: - CHI 00 [facility] Kenalog Kenalog 2019- No 40mg Common (Triamcinol (Triamcinol 0-16 S pirit one) one) 00:00: - CHI 00 [facility] Kenalog Kenalog 2019- No 40mg Common (Triamcinol (Triamcinol 0-16 S pirit one) one) 00:00: - CHI 00 [facility] Kenalog Kenalog 2019- No 40mg Common (Triamcinol (Triamcinol 0-16 S pirit one) one) 00:00: - CHI 00 [facility] Kenalog Kenalog 2019- No 40mg Common (Triamcinol (Triamcinol 0-16 S pirit one) one) 00:00: - CHI 00 [facility] Kenalog Kenalog 2019- No 40mg Common (Triamcinol (Triamcinol 0-16 S pirit one) one) 00:00: - CHI 00 [facility] Kenalog Kenalog 2019- No 40mg Common (Triamcinol (Triamcinol 0-16 S pirit one) one) 00:00: - [facility]I 00 [facility] Kenalog Kenalog 2019- No 40mg Common (Triamcinol (Triamcinol 0-16 S pirit one) one) 00:00: - CHI 00 [facility] Kenalog Kenalog 2019- No 40mg Common (Triamcinol (Triamcinol 0-16 S pirit one) one) 00:00: - CHI 00 [facility] Kenalog Kenalog 2019- No 40mg Common (Triamcinol (Triamcinol 0-16 S pirit one) one) 00:00: - CHI 00 [facility] Kenalog Kenalog 2019- No 40mg Common (Triamcinol (Triamcinol 0-16 S pirit one) one) 00:00: - CHI 00 [facility] Kenalog Kenalog 2019- No 40mg Common (Triamcinol (Triamcinol 0-16 S pirit one) one) 00:00: - CHI 00 [facility] Kenalog Kenalog 2019- No 40mg Common (Triamcinol (Triamcinol 0-16 S pirit one) one) 00:00: - CHI 00 [facility] Kenalog Kenalog 2019- No 40mg Common (Triamcinol (Triamcinol 0-16 S pirit one) one) 00:00: - [facility] 00 [facility] 2019- No 40mg Common (Triamcinol (Triamcinol 0-16 S pirit one) one) 00:00: - [facility] 00 [facility] Ken[facility] 2019- No 40mg Common (Triamcinol (Triamcinol 0-16 S pirit one) one) 00:00: - [facility] 00 [facility] Ken[facility] 2019- No 40mg Common (Triamcinol (Triamcinol 0-16 S pirit one) one) 00:00: - [facility] 00 [facility] Ken[facility] 2019- No 40mg Common (Triamcinol (Triamcinol 0-16 S pirit one) one) 00:00: - CHI 00 [facility] Kenalog Kenalog 2019- No 40mg Common (Triamcinol (Triamcinol 0-16 S pirit one) one) 00:00: - CHI 00 [facility] Kenalog Kenalog 2019- No 40mg Common (Triamcinol (Triamcinol 0-16 S pirit one) one) 00:00: - CHI 00 [facility] Kenalog Kenalog 2019- No 40mg Common (Triamcinol (Triamcinol 0-16 S pirit one) one) 00:00: - CHI 00 [facility] Kenalog Kenalog 2019- No 40mg Common (Triamcinol (Triamcinol 0-16 S pirit one) one) 00:00: - CHI 00 [facility] PrednisoLON PrednisoLON 2019-0 2020- No Elpidio 1.6 ml Common E Sodium E Sodium 01-21 Regalado once a day [facility] Phosphate Phosphate 00:00: 00:00 x3 weeks, - [facility] 00 :[address] [facility] PredniSONE PredniSONE 2019-0 2020- No Elpidio 2 tablets Common 01-13 Regalado with food [facility] 00:00: 00:00 or milk x - [facility] 00 :[address] [facility] 1 tab [facility] week [facility] ProAir HFA 0 Yes 1 - 2 Memori a 7-01 puffs, PO, l 16:43: Q4H, PRN [place] 00 Wheezing / cough / shortness of breath, # 1 ea, 0 Refill(s) Indomethaci 2019-0 Yes 0 Memori a n 7-01 Refill(s) l 16:43: [place] 00 Valium 2019-0 Yes 0 Memoria 7-01 Refill(s) l 16:43: [place] 00 Tramadol 2019-0 Yes 50 mg, PO, Mem oria 7-01 Q4-6H, PRN l 16:43: Pain, # 20 [place] 00 tab, 0 Refill(s) ProAir HFA 2019-0 Yes 1 - 2 Memori a 7-01 puffs, PO, l 16:43: Q4H, PRN [place] 00 Wheezing / cough / shortness of breath, # 1 ea, 0 Refill(s) Indomethaci 2019-0 Yes 0 Memori a n 7-01 Refill(s) l 16:43: [place] 00 Valium 2019-0 Yes 0 Memoria 7-01 Refill(s) l 16:43: [place] 00 Tramadol 2019-0 Yes 50 mg, PO, Mem oria 7-01 Q4-6H, PRN l 16:43: Pain, # 20 [place] 00 tab, 0 Refill(s) ProAir HFA 2019-0 Yes 1 - 2 Memori a 7-01 puffs, PO, l 16:43: Q4H, PRN [place] 00 Wheezing / cough / shortness of breath, # 1 ea, 0 Refill(s) Indomethaci 2019-0 Yes 0 Memori a n 7-01 Refill(s) l 16:43: [place] 00 Valium 2019-0 Yes 0 Memoria 7-01 Refill(s) l 16:43: [place] 00 Tramadol 2019-0 Yes 50 mg, PO, Mem oria 7-01 Q4-6H, PRN l 16:43: Pain, # 20 [place] 00 tab, 0 Refill(s) ProAir HFA 2019-0 [...] Memori a n 7-01 Refill(s) l 16:43: [place] 00 Valium 2019-0 Yes 0 Memoria 7-01 Refill(s) l 16:43: [place] 00 Tramadol 2019-0 Yes 50 mg, PO, Mem oria 7-01 Q4-6H, PRN l 16:43: Pain, # 20 [place] 00 tab, 0 Refill(s) ProAir HFA 2019-0 Yes 1 - 2 Memori a 7-01 puffs, PO, l 16:43: Q4H, PRN [place] 00 Wheezing / cough / shortness of breath, # 1 ea, 0 Refill(s) ProAir HFA 2019-0 Yes 1 - 2 Mem[facility] a 7-01 puffs, PO, l 16:43: Q4H, PRN [place] 00 Wheezing / cough / shortness of breath, # 1 ea, 0 Refill(s) Indomethaci 2019-0 Yes 0 Memori a n 7-01 Refill(s) l 16:43: [place] 00 Valium 2019-0 Yes 0 Memoria 7-01 Refill(s) l 16:43: [place] 00 Tramadol 2019-0 Yes 50 mg, PO, Mem oria 7-01 Q4-6H, PRN l 16:43: Pain, # 20 [place] 00 tab, 0 Refill(s) ProAir HFA 2019-0 Yes 1 - 2 Memori a 7-01 puffs, PO, l 16:43: Q4H, PRN [place] 00 Wheezing / cough / shortness of breath, # 1 ea, 0 Refill(s) ProAir HFA 2019-0 Yes 1 - 2 Memori a 7-01 puffs, PO, l 16:43: Q4H, PRN [place] 00 Wheezing / cough / shortness of breath, # 1 ea, 0 Refill(s) Indomethaci 2019-0 Yes 0 Memori a n 7-01 Refill(s) l 16:43: [place] 00 Valium 2019-0 Yes 0 Memoria 7-01 Refill(s) l 16:43: [place] 00 Tramadol 2019-0 Yes 50 mg, PO, Mem oria 7-01 Q4-6H, PRN l 16:43: Pain, # 20 [place] 00 tab, 0 Refill(s) ProAir HFA 2019-0 Yes 1 - 2 Memori a 7-01 puffs, PO, l 16:43: Q4H, PRN [place] 00 Wheezing / cough / shortness of breath, # 1 ea, 0 Refill(s) ProAir HFA 2019-0 Yes 1 - 2 Mem[facility] a 7-01 puffs, PO, l 16:43: Q4H, PRN [place] 00 Wheezing / cough / shortness of breath, # 1 ea, 0 Refill(s) Indomethaci 2019-0 Yes 0 Memori a n 7-01 Refill(s) l 16:43: [place] 00 Valium 2019-0 Yes 0 Memoria 7-01 Refill(s) l 16:43: [place] 00 Tramadol 2019-0 Yes 50 mg, PO, Mem oria 7-01 Q4-6H, PRN l 16:43: Pain, # 20 [place] 00 tab, 0 Refill(s) ProAir HFA 2019-0 Yes 1 - 2 Memori a 7-01 puffs, PO, l 16:43: Q4H, PRN [place] 00 Wheezing / cough / shortness of breath, # 1 ea, 0 Refill(s) ProAir HFA 2019-0 Yes 1 - 2 Mem[facility] a 7-01 puffs, PO, l 16:43: Q4H, PRN [place] 00 Wheezing / cough / shortness of breath, # 1 ea, 0 Refill(s) Indomethaci 2019-0 Yes 0 Memori a n 7-01 Refill(s) l 16:43: [place] 00 Valium 2019-0 Yes 0 Memoria 7-01 Refill(s) l 16:43: [place] 00 Tramadol 2019-0 Yes 50 mg, PO, Mem oria 7-01 Q4-6H, PRN l 16:43: Pain, # 20 [place] 00 tab, 0 Refill(s) ProAir HFA 2019-0 Yes 1 - 2 Memori a 7-01 puffs, PO, l 16:43: Q4H, PRN [place] 00 Wheezing / cough / shortness of breath, # 1 ea, 0 Refill(s) ProAir HFA 2019-0 Yes 1 - 2 Mem[facility] a 7-01 puffs, PO, l 16:43: Q4H, PRN [place] 00 Wheezing / cough / shortness of breath, # 1 ea, 0 Refill(s) Indomethaci 2019-0 Yes 0 Memori a n 7-01 Refill(s) l 16:43: [place] 00 Valium 2019-0 Yes 0 Memoria 7-01 Refill(s) l 16:43: [place] 00 Tramadol 2019-0 Yes 50 mg, PO, Mem oria 7-01 Q4-6H, PRN l 16:43: Pain, # 20 [place] 00 tab, 0 Refill(s) ProAir HFA 2019-0 Yes 1 - 2 Memori a 7-01 puffs, PO, l 16:43: Q4H, PRN [place] 00 Wheezing / cough / shortness of [...] 7-01 puffs, PO, l 16:43: Q4H, PRN [place] 00 Wheezing / cough / shortness of [...] Yes 0 Memoria 7-01 Refill(s) l 16:43: [place] 00 Tramadol 2019-0 Yes 50 mg, PO, Mem oria 7-01 Q4-6H, PRN l 16:43: Pain, # 20 [place] 00 tab, 0 Refill(s) ProAir HFA 2019-0 Yes 1 - 2 Memori a 7-01 puffs, PO, l 16:43: Q4H, PRN [place] 00 Wheezing / cough / shortness of breath, # 1 ea, 0 Refill(s) ProAir HFA 2019-0 Yes 1 - 2 Mem[facility] a 7-01 puffs, PO, l 16:43: Q4H, PRN [place] 00 Wheezing / cough / shortness of breath, # 1 ea, 0 Refill(s) Indomethaci 2019-0 Yes 0 Memori a n 7-01 Refill(s) l 16:43: [place] 00 Valium 2019-0 Yes 0 Memoria 7-01 Refill(s) l 16:43: [place] 00 Tramadol 2019-0 Yes 50 mg, PO, Mem oria 7-01 Q4-6H, PRN l 16:43: Pain, # 20 [place] 00 tab, 0 Refill(s) ProAir HFA 2019-0 Yes 1 - 2 Memori a 7-01 puffs, PO, l 16:43: Q4H, PRN [place] 00 Wheezing / cough / shortness of breath, # 1 ea, 0 Refill(s) albuterol 2019-0 Yes [id number] 2.5mg Inhale 3 Univers 2.5 mg /3 4-17 mL every 6 ity of mL (0.083 00:00: (six) [place] %) 00 hours as Medical nebulizer needed for Bran ch solution Wheezing or Shortness of Breath. albuterol 2019-0 Yes [id number] 2.5mg Inhale 3 Univers 2.5 mg /3 4-17 mL every 6 ity of mL (0.083 00:00: (six) [place] %) 00 hours as Medical nebulizer needed for Bran ch solution Wheezing or Shortness of Breath. albuterol 2019-0 Yes [id number] 2.5mg Inhale 3 Univers 2.5 mg /3 4-17 mL every 6 ity of mL (0.083 00:00: (six) [place] %) 00 hours as Medical nebulizer needed for Bran ch solution Wheezing or Shortness of Breath. albuterol 2019-0 Yes [id number] 2.5mg Inhale 3 Univers 2.5 mg /3 4-17 mL every 6 ity of mL (0.083 00:00: (six) [place] %) 00 hours as Medical nebulizer needed for Bran ch solution Wheezing or Shortness of Breath. albuterol 2019-0 Yes [id number] 2.5mg Inhale 3 Univers 2.5 mg /3 4-17 mL every 6 ity of mL (0.083 00:00: (six) [place] %) 00 hours as Medical nebulizer needed for Bran ch solution Wheezing or Shortness of Breath. albuterol 2019-0 Yes [id number] 2.5mg Inhale 3 Univers 2.5 mg /3 4-17 mL every 6 ity of mL (0.083 00:00: (six) [place] %) 00 hours as Medical nebulizer needed for Bran ch solution Wheezing or Shortness of Breath. albuterol 2019-0 Yes [id number] 2.5mg Inhale 3 Univers 2.5 mg /3 4-17 mL every 6 ity of mL (0.083 00:00: (six) [place] %) 00 hours as Medical nebulizer needed for Bran ch solution Wheezing or Shortness of Breath. albuterol 2019-0 Yes [id number] 2.5mg Inhale 3 Univers 2.5 mg /3 4-17 mL every 6 ity of mL (0.083 00:00: (six) [place] %) 00 hours as Medical nebulizer needed for Bran ch solution Wheezing or Shortness of Breath. albuterol 2019-0 Yes [id number] 2.5mg Inhale 3 Univers 2.5 mg /3 4-17 mL every 6 ity of mL (0.083 00:00: (six) [place] %) 00 hours as Medical nebulizer needed for Bran ch solution Wheezing or Shortness of Breath. albuterol 2019-0 Yes [id number] 2.5mg Inhale 3 Univers 2.5 mg /3 4-17 mL every 6 ity of mL (0.083 00:00: (six) [place] %) 00 hours as Medical nebulizer needed for Bran ch solution Wheezing or Shortness of Breath. albuterol 2019-0 Yes [id number] 2.5mg Inhale 3 Univers 2.5 mg /3 4-17 mL every 6 ity of mL (0.083 00:00: (six) [place] %) 00 hours as Medical nebulizer needed for Bran ch solution Wheezing or Shortness of Breath. albuterol 2019-0 Yes [id number] 2.5mg Inhale 3 Univers 2.5 mg /3 4-17 mL every 6 ity of mL (0.083 00:00: (six) [place] %) 00 hours as Medical nebulizer needed for Bran ch solution Wheezing or Shortness of Breath. albuterol 2019-0 Yes [id number] 2.5mg Inhale 3 Univers 2.5 mg /3 4-17 mL every 6 ity of mL (0.083 00:00: (six) [place] %) 00 hours as Medical nebulizer needed for Bran ch solution Wheezing or Shortness of Breath. albuterol 2019-0 Yes [id number] 2.5mg Inhale 3 Univers 2.5 mg /3 4-17 mL every 6 ity of mL (0.083 00:00: (six) [place] %) 00 hours as Medical nebulizer needed for Bran ch solution Wheezing or Shortness of Breath. albuterol 2019-0 Yes [id number] 2.5mg Inhale 3 Univers 2.5 mg /3 4-17 mL every 6 ity of mL (0.083 00:00: (six) [place] %) 00 hours as Medical nebulizer needed for Bran ch solution Wheezing or Shortness of Breath. albuterol 2019-0 Yes Q4H every 4 Metho di (PROAIR 3-27 (four) st HFA) 90 00:00: hours as Hospit a mcg/actuati 00 needed. l on inhaler albuterol 2019-0 Yes Q4H every 4 Metho di (PROAIR 3-27 (four) st HFA) 90 00:00: hours as Hospit a mcg/actuati 00 needed. l on inhaler Albuterol Albuterol Yes Elpidio INHALE 2 Common Sulfate HFA Sulfate HFA [facility] PUFFS BY [facility] MOUTH - [facility] EVERY [address] [facility] HOURS [facility] Albuterol Albuterol Yes Elpidio 3 ml as Common Sulfate Sulfate [facility] needed [facility] predniSONE predniSONE No 1{table QD [...] Completed [facility] - (Triamcinolone) (Triamcinolone) 13:40:00 [facility] Adi Joshi 2020-05-15 Completed [facility] - (Triamcinolone) (Triamcinolone) 13:40:00 [facility] Adi Joshi 2020-05-01 Completed [facility] - (Triamcinolone) (Triamcinolone) 14:53:00 [facility] Adi Joshi 2020-05-01 Completed [facility] - (Triamcinolone) (Triamcinolone) 14:53:00 [facility] Adi Joshi 2020-04-16 Completed [facility] - (Triamcinolone) (Triamcinolone) 15:57:00 [facility] Adi Joshi 2020-04-16 Completed [facility] - (Triamcinolone) (Triamcinolone) 15:57:00 [facility] Adi Joshi 2020-03-28 Completed [facility] - (Triamcinolone) (Triamcinolone) 10:21:00 [facility] Adi Joshi 2020-03-28 Completed [facility] - (Triamcinolone) (Triamcinolone) 10:21:00 [facility] Adi Joshi 2020-03-14 Completed [facility] - (Triamcinolone) (Triamcinolone) 13:48:00 [facility] Adi Joshi 2020-03-14 Completed [facility] - (Triamcinolone) (Triamcinolone) 13:48:00 [facility] TDAP 2012-09-04 Completed [facility] 00:00:00 [facility] TDAP 2012-09-04 Completed [facility] of 00:00:00 [facility] TDAP 2012-09-04 Completed [facility] of 00:00:00 [facility] TDAP 2012-09-04 Completed [facility] of 00:00:00 [facility] TDAP 2012-09-04 Completed [facility] of 00:00:00 [facility] TDAP 2012-09-04 Completed [facility] of 00:00:00 [facility] TDAP 2012-09-04 Completed [facility] of 00:00:00 [facility] TDAP 2012-09-04 Completed [facility] of 00:00:00 [facility] TDAP 2012-09-04 Completed [facility] of 00:00:00 [facility] TDAP 2012-09-04 Completed [facility] of 00:00:00 [facility] TDAP 2012-09-04 Completed [facility] of 00:00:00 [facility] TDAP 2012-09-04 Completed [facility] of 00:00:00 [facility] TDAP 2012-09-04 Completed [facility] of 00:00:00 [facility] Tdap Unknown Completed [facility] Tdap Unknown Completed [facility] TDAP Unknown Completed [facility] TDAP Unknown Completed [facility] Vital Signs Vital Name Observation Time Observation Value Comments Source Systolic blood 2023-03-09 11:00:00 106 mm[Hg] Univer sity pressure [facility] Diastolic blood 2023-03-09 11:00:00 59 mm[Hg] Unive rsity of pressure [facility] Heart rate 2023-03-09 11:00:00 77 /min [facility] Body temperature 2023-03-09 11:00:00 36.89 Lilly [facility] Res[facility] rate 2023-03-09 11:00:00 16 /min [facility] Oxygen saturation in 2023-03-09 11:00:00 100 /min [facility] Arterial blood by [facility] Pulse oximetry [place] Body weight 2023-03-08 20:03:00 54.432 kg [facility] BMI 2023-03-08 20:03:00 21.26 kg/m2 [facility] height 2022-08-24 14:40:00 66 [in_i] Common [facility] weight 2022-08-24 14:40:00 230 [lb_av] [facility] bmi 2022-08-24 14:40:00 37.12 kg/m2 [facility] height 2022-02-22 16:40:00 66 [in_i] [facility] weight 2022-02-22 16:40:00 230 [lb_av] [facility] bmi 2022-02-22 16:40:00 37.12 kg/m2 Common [facility] Heart rate 2022-01-31 23:17:00 85 /min Universi ty of [facility] Respiratory rate 2022-01-31 23:17:00 20 /min Univ ersity of [facility] Oxygen saturation in 2022-01-31 23:17:00 99 /min [facility] of Arterial blood by [facility] Pulse oximetry [facility] Systolic blood 2022-01-31 22:52:09 175 mm[Hg] Univer sity of pressure [facility] Diastolic blood 2022-01-31 22:52:09 81 mm[Hg] Unive rsity of [facility] Body temperature 2022-01-31 22:52:09 37.22 Lilly Univ ersity of [facility] Body weight 2022-01-31 22:48:00 86.183 kg Universi ty of [facility] BMI 2022-01-31 22:48:00 33.67 kg/m2 Universi ty of [facility] Systolic blood 2022-01-19 03:00:00 131 mm[Hg] Univer sity of [facility] Diastolic blood 2022-01-19 03:00:00 73 mm[Hg] Unive rsity of [facility] Heart rate 2022-01-19 03:00:00 76 /min Universi ty of [facility] Respiratory rate 2022-01-19 03:00:00 18 /min Univ ersity of [facility] Oxygen saturation in 2022-01-19 03:00:00 96 /min [facility] of Arterial blood by [facility] Pulse oximetry [facility] Body temperature 2022-01-18 23:15:00 37.67 Lilly Univ ersity of [facility] Body weight 2022-01-18 23:15:00 86.183 kg Universi ty of [facility] BMI 2022-01-18 23:15:00 33.67 kg/m2 Universi ty of [facility] height 2021-12-21 07:30:00 66 [in_i] [facility] weight 2021-12-21 07:30:00 235 [lb_av] [facility] temperature 2021-12-21 07:30:00 98 [degF] Common S [facility] - [facility] bmi 2021-12-21 07:30:00 37.93 kg/m2 [facility] blood pressure 2021-12-21 07:30:00 132 mm[Hg] [facility] - systolic [facility] blood pressure 2021-12-21 07:30:00 70 mm[Hg] [facility] - diastolic [facility] height 2021-10-16 10:10:00 66 [in_i] [facility] weight 2021-10-16 10:10:00 234.1 [lb_av] [facility] temperature 2021-10-16 10:10:00 96.6 [degF] [facility] bmi 2021-10-16 10:10:00 37.78 kg/m2 [facility] oximetry 2021-10-16 10:10:00 99 % [facility] S pirit [facility] respiratory rate 2021-10-16 10:10:00 18 /min [facility] blood pressure 2021-10-16 10:10:00 148 mm[Hg] [facility] - systolic [facility] blood pressure 2021-10-16 10:10:00 75 mm[Hg] [facility] - diastolic [facility] height 2021-08-21 08:40:00 66 [in_i] [facility] weight 2021-08-21 08:40:00 249 [lb_av] [facility] bmi 2021-08-21 08:40:00 40.19 kg/m2 [facility] height 2021-03-12 15:40:00 66 [in_i] [facility] weight 2021-03-12 15:40:00 249 [lb_av] [facility] S pirit [facility] bmi 2021-03-12 15:40:00 40.19 kg/m2 [facility] S pirit [facility] Systolic blood 2023-04-12 17:45:00 119 mm[Hg] Univer sity of pressure [facility] Diastolic blood 2023-04-12 17:45:00 76 mm[Hg] Unive rsity of pressure [facility] [facility] Heart rate 2023-04-12 17:45:00 75 /min [facility] Body temperature 2023-04-12 17:45:00 36.44 [facility] Respiratory rate 2023-04-12 17:45:00 20 /min [facility] Body weight 2023-04-12 17:45:00 56.8 kg [facility] BMI 2023-04-12 17:45:00 22.19 kg/m2 [facility] Systolic blood 2023-01-07 16:39:00 123 mm[Hg] [facility] Diastolic blood 2023-01-07 16:39:00 74 mm[Hg] [facility] Heart rate 2023-01-07 16:39:00 88 /min [facility] Body temperature 2023-01-07 16:39:00 36.67 [facility] Respiratory rate 2023-01-07 16:39:00 20 /min [facility] Body weight 2023-01-07 16:39:00 58.7 kg [facility] BMI 2023-01-07 16:39:00 22.93 kg/m2 [facility] Oxygen saturation in 2022-07-14 14:29:29 97 /min [facility] Arterial blood by [facility] P[facility] oxim[facility] Body height 2022-07-12 22:08:00 160 cm [facility] Systolic (mm Hg) 2022-05-18 17:04:00 Keanu Gonzalez Diastolic (mm Hg) 2022-05-18 17:04:00 [facility] Heart Rate 2022-05-18 17:04:00 [facility] Height 2022-05-18 17:04:00 5 [ft_i] [facility] Weight 2022-05-18 17:04:00 [facility] BMI Calculated 2022-05-18 17:04:00 [facility] Systolic (mm Hg) 2021-12-04 19:55:00 [facility]anu [facility] Diastolic (mm Hg) 2021-12-04 19:55:00 [facility] Heart Rate 2021-12-04 19:55:00 [facility] Respitory Rate 2021-12-04 19:55:00 [facility] Height 2021-12-04 19:55:00 160.02 cm [facility] Weight 2021-12-04 19:55:00 [facility] BMI Calculated 2021-12-04 19:55:00 [facility] Systolic (mm Hg) 2021-11-05 19:35:00 Keanu [facility] Diastolic (mm Hg) 2021-11-05 19:35:00 [facility] Heart Rate 2021-11-05 19:35:00 [facility] Respitory Rate 2021-11-05 19:35:00 [facility] Height 2021-11-05 19:35:00 160.02 cm [facility] Weight 2021-11-05 19:35:00 [facility] BMI Calculated 2021-11-05 19:35:00 [facility] Systolic (mm Hg) 2021-02-05 15:45:00 [facility]anu [facility] Diastolic (mm Hg) 2021-02-05 15:45:00 [facility] Heart Rate 2021-02-05 15:45:00 [facility] Respitory Rate 2021-02-05 15:45:00 [facility] Height 2021-02-05 15:45:00 160.02 cm [facility] Weight 2021-02-05 15:45:00 [facility] BMI Calculated 2021-02-05 15:45:00 [facility] Systolic (mm Hg) 2020-11-04 14:58:00 [facility]anu [facility] Diastolic (mm Hg) 2020-11-04 14:58:00 [facility] Heart Rate 2020-11-04 14:58:00 [facility] Respitory Rate 2020-11-04 14:58:00 [facility] Height 2020-11-04 14:58:00 162.56 cm [facility] Weight 2020-11-04 14:58:00 [facility] BMI Calculated 2020-11-04 14:58:00 [facility] Systolic (mm Hg) 2020-09-03 13:30:00 Keanu rial [facility] Diastolic (mm Hg) 2020-09-03 13:30:00 [facility] Heart Rate 2020-09-03 13:30:00 [facility] Respitory Rate 2020-09-03 13:30:00 [facility] Weight 2020-09-03 13:30:00 [facility] Systolic (mm Hg) 2020-08-20 16:01:00 Keanu rial [facility] Diastolic (mm Hg) 2020-08-20 16:01:00 [facility] Heart Rate 2020-08-20 16:01:00 [facility] Respitory Rate 2020-08-20 16:01:00 [facility] Height 2020-08-20 16:01:00 162.56 cm [facility] Weight 2020-08-20 16:01:00 [facility] BMI Calculated 2020-08-20 16:01:00 [facility] Systolic (mm Hg) 2018-11-27 16:16:00 [facility]anu [facility] Diastolic (mm Hg) 2018-11-27 16:16:00 [facility] Weight 2018-11-27 16:16:00 [facility] BMI Calculated 2018-11-27 16:16:00 [facility] Heart Rate 2018-11-27 16:16:00 [facility] Height 2018-11-27 16:16:00 167.64 cm [facility] Procedures Procedure Date / Time Performing Clinician Source Performed HEMOGLOBIN 2023-03-09 11:12:00 Catalina Rosales [facility] TRANSFUSE PACKED RBC 2023-03-09 08:22:00 Catalina Rosales [facility] PREPARE PACKED RBC 2023-03-09 08:12:45 Catalina Rosales [facility] TRANSFUSE PACKED RBC 2023-03-09 04:23:00 Will Stratton [facility] PREPARE PACKED RBC 2023-03-09 04:18:05 Will Stratton [facility] CRITICAL CARE 2023-03-09 02:42:53 Will Stratton [facility] TRANSFUSE PACKED RBC 2023-03-09 00:49:00 Will Stratton [facility] US DUPLEX VENOUS ARM 2023-03-09 00:29:13 Will Stratton [facility] RIGHT - BY VASCULAR LAB [facility] LACTIC ACID WHOLE BLOOD 2023-03-08 23:14:00 Will Stratton [facility] ACTIVATED PARTIAL 2023-03-08 21:52:00 Will Stratton [facility] THRFormerly [facility] CBC WITH DIFF 2023-03-08 21:26:00 Viral [facility] BLOOD CULTURE SCREEN 2023-03-08 20:27:00 Will Stratton [facility] TROPONIN I 2023-03-08 20:27:00 Will Stratton [facility] COMP. METABOLIC PANEL 2023-03-08 20:27:00 Will Stratton [facility] ([id number]) [facility] PROTHROMBIN TIME / INR 2023-03-08 20:27:00 Will Stratton [facility] HB ABO GROUPING 2023-03-08 20:27:00 Viral [facility] N-TERMINAL PRO-BNP 2023-03-08 20:27:00 Will Stratton [facility] LACTIC ACID WHOLE BLOOD 2023-03-08 20:20:00 Will Stratton [facility] AUTHORIZATION FOR RELEASE 2022-08-12 05:01:00 Doctor Unassigned, [facility] [place] AUTHORIZATION FOR RELEASE 2022-08-02 06:01:00 Doctor Unassigned, [facility] Name [facility] AUTHORIZATION FOR RELEASE 2022-07-23 06:01:00 Doctor Unassigned, [facility] [place] [facility] [place] PETCT SUBSEQUENT 2022-07-12 23:57:34 Felicitas Matos [facility] TREATMENT STRATEGY [facility] AUTHORIZATION FOR RELEASE 2022-07-12 06:01:00 Doctor Marilou, [facility] [place] [facility] [place] AUTHORIZATION FOR RELEASE 2022-06-28 06:01:00 Doctor Marilou [facility] Name [facility] INSURANCE CORRESPONDENCE 2022-03-01 05:01:00 Doctor Marilou [facility] [place] [facility] [place] CONSENT/REFUSAL FOR 2022-01-31 22:42:54 Doctor Marilou [facility] [place] [facility] DIAGNOSIS AND TREATMENT [place] [facility] URINALYSIS 2022-01-19 02:19:00 Enio Patel [facility] DUPLEX VENOUS LEG RIGHT - 2022-01-19 01:35:59 Enio Patel [facility] BY VASCULAR LAB [facility] CT THORAX WO CONTRAST 2022-01-19 01:33:00 Enio Patel [facility] [place] [facility] COMP. METABOLIC PANEL 2022-01-19 00:27:00 Enio Patel [facility] [place] [facility] ([id number]) [facility] CBC WITH DIFF 2022-01-19 00:27:00 Enio Patel [facility] D-DIMER 2022-01-19 00:27:00 Enio Patel [facility] CONSENT/REFUSAL FOR 2022-01-18 23:05:23 Doctor Zamarripa [facility] DIAGNOSIS AND TREATMENT [place] [facility] [place] Hysterectomy 2017-03-30 00:00:00 [facility] Plan of Care Planned Activity Planned Date Details Comments Source Future Scheduled 2023-04-14 COVID-19 Vaccination [facility] [place] Test 17:09:29 (#1) [code = MARGARET RON [facility] Vaccination (#1)] Center Future Scheduled 2023-03-30 COVID-19 Vaccination [facility] [place] Test 15:49:20 (#1) [code = MARGARET RON [facility] Vaccination (#1)] Center Future Scheduled 2023-03-23 Screening for [facility] Test 16:44:45 malignant neoplasm of colon (procedure) [code = 732825261] Future Scheduled 2023-03-23 Screening for [facility] Test 16:44:45 malignant neoplasm of colon (procedure) [code = 788791590] Future Scheduled 2023-03-23 Screening for [facility] Test 16:44:45 malignant neoplasm of colon (procedure) [code = 426009077] Future Scheduled 2023-03-23 COVID-19 VACCINE (#1) [facility] Test 16:44:45 [code = COVID-19 VACCINE (#1)] Future Scheduled 2023-03-23 Pneumococcal Vaccine: [facility] Test 16:44:45 Pediatrics (0 to 5 Years) and At-Risk Patients (6 to 64 Years) (1 - PCV) [code = Pneumococcal Vaccine: Pediatrics (0 to 5 Years) and At-Risk Patients (6 to 64 Years) (1 - PCV)] Future Scheduled 2023-03-23 DIABETES: RETINAL EYE [facility] Test 16:44:45 EXAM [code = DIABETES: RETINAL EYE EXAM] Future Scheduled 2023-03-23 DIABETIC FOOT EXAM [facility] Test 16:44:45 [code = DIABETIC FOOT EXAM] Future Scheduled 2023-03-23 Hepatitis C screening [facility] Test 16:44:45 (procedure) [code = 543634612] Future Scheduled 2023-03-23 Screening for [facility] Test 16:44:45 malignant neoplasm of cervix (procedure) [code = 103097510] Future Scheduled 2023-03-23 BREAST CANCER [facility] Test 16:44:45 SCREENING [code = BREAST CANCER SCREENING] Future Scheduled 2023-03-23 Screening for [facility] Test 16:44:45 malignant neoplasm of colon (procedure) [code = 783386983] Future Scheduled 2023-03-23 Screening for [facility] Test 16:44:45 malignant neoplasm of colon (procedure) [code = 385229803] Future Scheduled 2023-03-23 [facility]ING[facility]INES ([facility] 16:44:45 of 2) [code = SHINGLES VACCINES (1 of 2)] Future Scheduled 2023-03-23 INFLUENZA VACCINE Method t Hospital Test 16:44:45 (#1) [code = INFLUENZA VACCINE (#1)] Future Scheduled 2023-03-16 Screening for [facility] Test 17:07:07 malignant neoplasm of colon (procedure) [code = 395556673] Future Scheduled 2023-03-16 Screening for [facility] Test 17:07:07 malignant neoplasm of colon (procedure) [code = 679922341] Future Scheduled 2023-03-16 Screening for [facility] Test 17:07:07 malignant neoplasm of colon (procedure) [code = 158430998] Future Scheduled 2023-03-16 COVID-19 VACCINE (#1) [facility] Test 17:07:07 [code = COVID-19 VACCINE (#1)] Future Scheduled 2023-03-16 Pneumococcal Vaccine: [facility] Test 17:07:07 Pediatrics (0 to 5 Years) and At-Risk Patients (6 to 64 Years) (1 - PCV) [code = Pneumococcal Vaccine: Pediatrics (0 to 5 Years) and At-Risk Patients (6 to 64 Years) (1 - PCV)] Future Scheduled 2023-03-16 DIABETES: RETINAL EYE [facility] Test 17:07:07 EXAM [code = DIABETES: RETINAL EYE EXAM] Future Scheduled 2023-03-16 DIABETIC FOOT EXAM [facility] Test 17:07:07 [code = DIABETIC FOOT EXAM] Future Scheduled 2023-03-16 Hepatitis C screening [facility] Test 17:07:07 (procedure) [code = 316084426] Future Scheduled 2023-03-16 Screening for [facility] Test 17:07:07 malignant neoplasm of cervix (procedure) [code = 655879877] Future Scheduled 2023-03-16 BREAST CANCER [facility] Test 17:07:07 SCREENING [code = BREAST CANCER SCREENING] Future Scheduled 2023-03-16 Screening for [facility] Test 17:07:07 malignant neoplasm of colon (procedure) [code = 752373827] Future Scheduled 2023-03-16 Screening for [facility] Test 17:07:07 malignant neoplasm of colon (procedure) [code = 698558093] Future Scheduled 2023-03-16 SHINGLES VACCINES (1 Met [facility] Test 17:07:07 of 2) [code = SHINGLES VACCINES (1 of 2)] Future Scheduled 2023-03-16 INFLUENZA VACCINE Method [facility] Test 17:07:07 (#1) [code = INFLUENZA VACCINE (#1)] Future Scheduled 2023-03-16 RSV VACCINES > 60 YR Met [facility] Test 17:07:07 (1 - 1-dose 60+ series) [code = RSV VACCINES > 60 YR (1 - 1-dose 60+ series)] Future Scheduled 2023-03-11 COVID-19 Vaccination Uni [facility] Test 08:56:58 (#1) [code = COVID-19 MD [facility] Vaccination (#1)] Center Encounters Start End Encounter Admission Attending Care Care Encounter Source Date/Time Date/Time Type Type Clinicians Facility Department ID 2023-01-21 Outpatient Regalado, STLMLC STLC [id number] Common 08:59:00 Elpidio [id number] [facility] 2022-11-11 Outpatient Regalado, STLMLC STLC [id number] Common 08:45:00 Elpidio [id number] [facility] 2022-08-24 Outpatient Regalado, [facility] [id number] Common 14:47:01 Elpidio [id number] [facility] 2022-07-31 Outpatient SYSTEM, [facility] [id number] 08:50:07 PROVIDER Morris o n 2022-06-04 Outpatient SYSTEM, [facility] [id number] 12:45:48 PROVIDER Morris o n 2022-03-08 Outpatient SYSTEM, [facility] [id number] 08:09:18 PROVIDER Morris o n 2022-01-15 [id number] 10:37:48 ATIF card 2021-10-14 Outpatient Regalado, STLC [facility] [id number] Common 10:34:03 Elpidio [facility] 2021-08-20 Outpatient Regalado, STLC [facility] [id number] Common 11:10:01 Elpidio [facility] 2021-06-24 Outpatient Regalado, STLC [facility] [id number] Common 13:33:16 Elpidio [facility] 2021-06-24 Outpatient Regalado, STLC [facility] [id number] Common 13:18:04 Elpidio [facility] 2021-06-24 Outpatient Regalado, STLC [facility] [id number] Common 11:58:02 Elpidio [id number] [facility] 2021-06-24 Outpatient Regalado, STLMLC STLMLC [id number] Common 11:57:35 Elpidio [id number] [facility] 2021-06-24 Outpatient Regalado, STLMLC STLMLC [id number] Common 11:57:20 Elpidio 12931 [facility] 2021-06-24 Outpatient Regalado, STLMLC [facility] [id number] Common 11:56:08 Elpidio [id number] [facility] 2023-04-12 2023-04-12 Outpatient EL SHAWNA, [facility] [id number] 11:35:37 16:27:42 FELICITAS card 2023-04-12 2023-04-12 Follow-Up Shawna, 1.2.840.1 [id number] [facility] 11:30:00 16:27:42 Felicitas 73328.1.1 ity of 3.412.2.7 [place] .3.648206 MD Traylor8 [facility] 2023-04-12 2023-04-12 Travel 1.2.840.1 1.2.652.084 [id number] Univers 00:00:00 00:00:00 34838.1.1 350.1.13.41 ity of 3.412.2.7 2.2.7.3.698 Te [facility] .3.143814 084.8 MD Traylor8 [facility] 2023-03-28 2023-03-28 Reanna Hughes, 1.2.840.1 [id number] [facility] 00:00:00 00:00:00 Only Lexi Dey 71149.1.1 ity of 3.412.2.7 [place] .3.302712 MD Traylor8 [facility] 2023-03-28 2023-03-28 Reanna Hughes, 1.2.840.1 [id number] [facility] 00:00:00 00:00:00 Only Lexi Dey 99953.1.1 ity of 3.412.2.7 [place] .3.431323 .8 [facility] 2023-03-24 2023-03-24 Ambulatory MHIE MNA [id number] Memoria 14:00:00 14:00:00 Pre-Reg Neurology 12 l Courtney Gonzalez 2023-03-24 2023-03-24 Ambulatory MHIE MNA [id number] Memoria 14:00:00 14:00:00 Pre-Reg Neurology 12 l Courtney Gonzalez 2023-03-24 2023-03-24 Outpatient MHIE MHIE [id number] Memoria 09:00:00 09:00:00 12 l Carlos 2023-03-24 2023-03-24 [facility] [id number] 09:00:00 09:00:00 Herbertpancho [place] 2023-03-11 2023-03-11 Telephone Parish, 1.2.840.1 [id number] Univers 00:00:00 00:00:00 Yamilet 02461.1.1 it y of 3.412.2.7 [place] .3.064749 .8 [facility] 2023-03-11 2023-03-11 Telephone [place], 1.2.840.1 [id number] Univers 00:00:00 00:00:00 Yamilet 41382.1.1 it y of 3.412.2.7 [place] .3.465037 .8 [facility] 2023-03-08 2023-03-09 Inpatient X KIMANI [facility]AN [facility] [id number] Univers 15:04:00 06:52:00 RADAMES [facility]a [facility] 2023-03-08 2023-03-09 Hospital Will Stratton [facility] 1.2.840.1 14 [id number] Univers 15:04:00 06:52:00 Radames Resendez 350.1.13. 10 ity of [place] 4.2.7.2.686 [facility] [phone] [place] 068014 [place] 2023-01-07 2023-01-07 Follow-Up DAYDAY Matos 1.2.840.1 [id number] Univers 11:30:00 12:38:33 Felicitas 51705.1.1 ity of 3.412.2.7 [place] .3.035417 MD Blood [facility] 2023-01-07 2023-01-07 Follow-Up Shawna, 1.2.840.1 [id number] [facility] 11:30:00 12:38:33 Felicitas 11653.1.1 ity of 3.412.2.7 [place] .3.812602 MD Blood [facility] 2023-01-07 2023-01-07 Travel 1.2.840.1 1.2.230.308 [id number] Univers 00:00:00 00:00:00 32530.1.1 350.1.13.41 ity of 3.412.2.[place].3.698 [place] .3.445201 084.8 MD Blood [facility] 2023-01-07 2023-01-07 Travel 1.2.840.1 1.2.058.560 [id number] Univers 00:00:00 00:00:00 74106.1.1 350.1.13.41 ity of 3.412.2.7 [place]7.3.698 [place] .3.961041 084.8 MD Blood [facility] 2022-12-28 2022-12-28 Reanna Hughes 1.2.840.1 [id number] Univers 00:00:00 00:00:00 Only Lexi Dey 18914.1.1 ity of 3.412.2.7 [place] .3.759195 MD Blood [facility] 2022-12-28 2022-12-28 Reanna Hughes 1.2.840.1 [id number] Univers 00:00:00 00:00:00 Only Lexi M 55255.1.1 ity of 3.412.2.7 [place] .3.460029Shady Blood [facility] 2022-10-05 2022-10-05 Follow-Up DAYDAY Matos, 1.2.840.1 [id number] Univers 09:30:00 10:00:00 Felicitas 32591.1.1 ity of 3.412.2.7 [place] .3.727049 MD Blood [facility] 2022-10-05 2022-10-05 Follow-Up Shawna, 1.2.840.1 [id number] Univers 09:30:00 10:00:00 Felicitas 43319.1.1 ity of 3.412.2.7 [place] .3.259312 MD Blood [facility] 2022-10-05 2022-10-05 Travel 1.2.840.1 1.2.248.608 [id number] Univers 00:00:00 00:00:00 88265.1.1 350.1.13.41 ity of 3.412.2.[place]7.3.698 [place] .3.496487 084.8 MD Blood [facility] 2022-10-05 2022-10-05 Travel 1.2.840.1 1.2.655.054 [id number] Univers 00:00:00 00:00:00 68516.1.1 350.1.13.41 ity of 3.412.2.7 [place]7.3.698 [place] .3.137806 084.8 MD Blood [facility] 2022-09-06 2022-09-06 Reanna Hughes, 1.2.840.1 [id number] Univers 00:00:00 00:00:00 Only Lexi M 18328.1.1 ity of 3.412.2.7 [place] .3.669117 MD Blood [facility] 2022-09-06 2022-09-06 Reanna Hughes, 1.2.840.1 [id number] Univers 00:00:00 00:00:00 Only Lexi M 81029.1.1 ity of 3.412.2.7 [place] .3.311767 MD Blood [facility] 2022-08-24 2022-08-24 OFFICE STLMLC STLMLC [id number] Co mmon 00:00:00 00:00:00 VISIT Spirit ESTAB PT - CHI LEVEL 3 [facility] 2022-08-23 2022-08-23 (WEB) STLMLC STLMLC [id number] Co mmon 00:00:00 00:00:00 Spirit - CHI [facility] 2022-08-20 2022-08-20 (TEL) STLMLC STLMLC [id number] Co mmon 00:00:00 00:00:00 [facility] 2022-08-13 2022-08-13 Orders Kinjal, 1.2.840.1 [id number] Univers 00:00:00 00:00:00 Only Roseline 70145.1.1 ity of 3.412.2.7 [place] .3.564833 MD Blood [facility] 2022-08-13 2022-08-13 Orders Cuauhtemoc, 1.2.840.1 [id number] Univers 00:00:00 00:00:00 Only Ngoc 88874.1.1 ity of 3.412.2.7 [place] .3.739016 MD Blood [facility] 2022-08-13 2022-08-13 Orders Kinjal, 1.2.840.1 [id number] Univers 00:00:00 00:00:00 Only Roseline 17824.1.1 ity of 3.412.2.7 [place] .3.930563 MD Traylor8 [facility] 2022-08-13 2022-08-13 Orders Cuauhtemoc, 1.2.840.1 [id number] Univers 00:00:00 00:00:00 Only Ngoc 70400.1.1 ity of 3.412.2.7 [place] .3.167288 MD Blood [facility] 2022-08-12 2022-08-12 Orders Doctor IQBAL 1.2.840.114 [id number] Univers 00:00:00 00:00:00 Only Unassigned, JUAN C 350.1.13.10 ity of [place] [facility] 4.2.7.2.686 Sid as [id number] [address] 2022-08-02 2022-08-02 Orders Doctor FARIDA 1.2.840.114 [id number] Univers 00:00:00 00:00:00 Only Unassigned, JUAN C 350.1.13.10 ity of [place] [facility] 4.2.7.2.686 Sid as [id number] [address] 2022-07-23 2022-07-23 Orders Doctor IQBAL 1.2.840.114 [id number] Univers 00:00:00 00:00:00 Only Unassigned, JUAN C 350.1.13.10 ity of [place] [facility] 4.2.7.2.686 Sid as [id number] [address] 2022-07-14 2022-07-14 [facility], 1.2.840.1 [id number] Univers 07:43:38 23:59:00 Encounter Felicitas 08256.1.1 it y of 3.412.2.7 [place] .3.009282 MD Blood [facility] 2022-07-14 2022-07-14 [facility], 1.2.840.1 [id number] Univers 07:43:38 23:59:00 Encounter Felicitas 49125.1.1 it y of 3.412.2.7 [place] .3.142996 MD Blood [facility] 2022-07-14 2022-07-14 Travel 1.2.840.1 1.2.773.208 [id number] Univers 00:00:00 00:00:00 16842.1.1 350.1.13.41 ity of 3.412.2.7 2.[place]7.3.698 [place] .3.255558 084.8 MD Blood [facility] 2022-07-14 2022-07-14 Travel 1.2.840.1 1.2.967.370 [id number] Univers 00:00:00 00:00:00 92919.1.1 350.1.13.41 ity of 3.412.2.7 2.[place]7.3.698 [place] .3.733752 084.8 MD Blood [facility] 2022-07-12 2022-07-12 Ancillary DAYDAY Matos, 1.2.840.1 [id number] Univers 16:30:00 19:00:00 Procedure Felicitas 70552.1.1 it y of 3.412.2.7 [place] .3.546542 MD Traylor8 [facility] 2022-07-12 2022-07-12 Ancillary Anetat, 1.2.840.1 [id number] Univers 16:30:00 19:00:00 Procedure Felicitas 43940.1.1 it y of 3.412.2.7 [place] .3.270384 MD Blood [facility] 2022-07-12 2022-07-12 Orders Doctor FARIDA 1.2.840.114 [id number] Univers 00:00:00 00:00:00 Only Unassigned, JUAN C 350.1.13.10 ity of [place] [facility] 4.2.7.2.686 Sid as [id number] [place] [address] [place] 2022-07-12 2022-07-12 Travel 1.2.840.1 1.2.131.269 [id number] Univers 00:00:00 00:00:00 44851.1.1 350.1.13.41 ity of 3.412.2.7 2.[place]7.3.698 [place] .3.514522 084.8 MD Traylor8 [facility] 2022-07-12 2022-07-12 Travel 1.2.840.1 1.2.613.309 [id number] Univers 00:00:00 00:00:00 28594.1.1 350.1.13.41 ity of 3.412.2.7 [place]7.3.698 [place] .3.441846 084.8 .8 [facility] 2022-07-09 2022-07-09 Telephone Saul, 1.2.840.1 [id number] Univers 00:00:00 00:00:00 Sarah 76554.1.1 ity of 3.412.2.7 [place] .3.772719 MD Traylor8 [facility] 2022-07-09 2022-07-09 Telephone Saul, 1.2.840.1 [id number] Univers 00:00:00 00:00:00 Sarah 92139.1.1 ity of 3.412.2.7 [place] .3.387271 MD Traylor8 [facility] 2022-07-08 2022-07-08 [facility] 1.2.934.206 [id number] Univers 00:00:00 00:00:00 Elzbieta HARPER 350.1.13.10 i ty of [place]2.[place] [phone] Az dical NAL 085 [facility] 2022-06-28 2022-06-28 Orders Doctor FARIDA 1.2.840.114 [id number] Univers 00:00:00 00:00:00 Only Unassigned, JUAN C 350.1.13.10 ity of [place] [facility] 4.2.7.2.686 Sid as [id number] [place] [address] [address] 2022-06-25 2022-06-25 (TEL) ST[facility]MLC [facility] [id number] Co mmon 00:00:00 00:00:00 [facility] 2022-06-22 2022-06-22 Orders Shawna, 1.2.840.1 [id number] Univers 00:00:00 00:00:00 Only Felicitas 74763.1.1 ity of 3.412.2.7 [place] .3.921555 MD Traylor8 [facility] 2022-06-22 2022-06-22 Orders Shawna, 1.2.840.1 [id number] Univers 00:00:00 00:00:00 Only Felicitas 95125.1.1 ity of 3.412.2.7 [place] .3Kymberly087940 MD Traylor8 [facility] 2022-06-20 2022-06-20 (WEB) STLMLC STLMLC [id number] Co mmon 00:00:00 00:00:00 [facility] 2022-05-18 2022-05-19 Outpatient MHIE MNA [id number] Memoria 17:00:00 05:59:59 Neurology 11 betsey Suarezann 2022-05-18 2022-05-19 Outpatient MHIE MNA [id number] Memoria 17:00:00 05:59:59 Neurology 11 betsey Valdez [place] 2022-05-18 2022-05-18 Outpatient Neo, MHMISCHER MHMISCHER [id number] 11:00:00 23:59:59 Herbert 11 Karthik 2022-05-18 2022-05-18 Outpatient MHIE MHIE [id number] Memoria 11:00:00 11:00:00 11 betsey [place] 2022-05-17 2022-05-17 (WEB) STLMLC STLMLC [id number] Co mmon 00:00:00 00:00:00 [facility] 2022-05-17 2022-05-17 (WEB) STLMLC STLMLC [id number] Co mmon 00:00:00 00:00:00 [facility] 2022-05-03 2022-05-03 Documentat Stone, 1.2.840.1 [id number] Univers 00:00:00 00:00:00 ion Catalina 19784.1.1 ity of [place] 3.412.2.7 Luis .3Kymberly044767 MD Traylor8 [facility] 2022-05-03 2022-05-03 Documentjersey Ritter, 1.2.840.1 [id number] Univers 00:00:00 00:00:00 ion Catalina 53052.1.1 ity of [place] 3.412.2.7 Luis .3Kymberly339182 MD Traylor8 [facility] 2022-04-21 2022-04-21 Documentat Kiran, 1.2.840.1 [id number] Univers 00:00:00 00:00:00 ion Sheree C 18642.1.1 it y of 3.412.2.7 [place] .3.497078 MD Traylor8 [facility] 2022-04-21 2022-04-21 Documentat Kiran, 1.2.840.1 [id number] Univers 00:00:00 00:00:00 ion Sheree C 20424.1.1 it y of 3.412.2.7 [place] .3.396523 MD Traylor8 [facility] 2022-04-16 2022-04-16 Documentat Kiran, 1.2.840.1 [id number] Univers 00:00:00 00:00:00 ion Sheree C 96505.1.1 it y of 3.412.2.7 [place] .3.585779 MD Traylor8 [facility] 2022-04-16 2022-04-16 Reanna Hughes 1.2.840.1 [id number] Univers 00:00:00 00:00:00 Only Lexi Dey 03777.1.1 ity of 3.412.2.7 [place] .3.970404 MD Blood [facility] 2022-04-14 2022-04-14 [facility] Bethany Weiss 1.2.840 .1 [id number] Univers 11:00:00 23:59:00 Encounter Toby العراقي 05984.1.1 ity of 3.412.2.7 [place] .3.046401 MD Blood [facility] 2022-04-14 2022-04-14 [facility] Felicitas Bazzi 1.2.840.1 [id number] Univers 10:04:47 10:59:00 Josef Pichardo 01672.1.1 ity of 3.412.2.7 [place] .3.279895 MD Blood [facility] 2022-04-14 2022-04-14 Telephone Milena, 1.2.840.1 [id number] Univers 00:00:00 00:00:00 Yamilet Mendoza 68802.1.1 ity of 3.412.2.7 [place] .3.402073 MD Blood [facility] 2022-04-14 2022-04-14 Reanna Hughes 1.2.840.1 [id number] Univers 00:00:00 00:00:00 Only Lexi M 26840.1.1 ity of 3.412.2.7 [place] .3.200450 MD Blood [facility] 2022-04-14 2022-04-14 Travel 1.2.840.1 1.2.147.980 [id number] Univers 00:00:00 00:00:00 16983.1.1 350.1.13.41 ity of 3.412.2.7 2.[place].3.698 [place] .3.684687 084.8 MD Blood [facility] 2022-04-13 2022-04-13 Reanna Hughes 1.2.840.1 [id number] Univers 00:00:00 00:00:00 Only Lexi M 82319.1.1 ity of 3.412.2.7 [place] .3.563528 MD Blood [facility] 2022-04-13 2022-04-13 Reanna Hughes 1.2.840.1 [id number] Univers 00:00:00 00:00:00 Only Lexi M 91478.1.1 ity of 3.412.2.7 [place] .3.921646 MD Blood [facility] 2022-04-13 2022-04-13 Reanna Hughes 1.2.840.1 [id number] Univers 00:00:00 00:00:00 Only Lexi M 59854.1.1 ity of 3.412.2.7 [place] .3.188047 MD Blood [facility] 2022-04-12 2022-04-12 Telephone Alexandra, 1.2.840.1 [id number] [id number] Univers 00:00:00 00:00:00 Lashawn N 08101.1.1 ity of 3.412.2.7 [place] .3.947783 MD Traylor8 [facility] 2022-04-12 2022-04-12 Orders Alexandra, 1.2.840.1 [id number] Univers 00:00:00 00:00:00 Only Lashawn N 23616.1.1 ity of 3.412.2.7 [place] .3.406683 MD Traylor8 [facility] 2022-04-08 2022-04-08 Orders Alexandra, 1.2.840.1 [id number] Univers 00:00:00 00:00:00 Only Lashawn N 38345.1.1 ity of 3.412.2.7 [place] .3.420980 MD Traylor8 [facility] 2022-04-07 2022-04-07 Orders Alexandra, 1.2.840.1 [id number] Univers 00:00:00 00:00:00 Only Lashawn N 25164.1.1 ity of 3.412.2.7 [place] .3.373684 MD Blood [facility] 2022-04-06 2022-04-06 Baudilio Mireles, 1.2.840.1 [id number] [id number] Univers 00:00:00 00:00:00 Arely Ng 15244.1.1 ity of 3.412.2.7 [place] .3.456615 MD Traylor8 [facility] 2022-04-06 2022-04-06 Orders Kyler, 1.2.840.1 [id number] 0354 Univers 00:00:00 00:00:00 Only Dwight 46666.1.1 ity of 3.412.2.7 [place] .3.157629 MD Traylor8 [facility] 2022-04-06 2022-04-06 Orders Shawna, 1.2.840.1 [id number] 1099 [id number] Univers 00:00:00 00:00:00 Only Felicitas 83997.1.1 ity of 3.412.2.7 [place] .3.462306 .8 Luz [facility] 2022-03-02 2022-03-02 Outpatient DAYDAY MATOS MDA [facility] [id number] 10:28:00 10:28:00 FELICITAS card 2022-03-01 2022-03-01 Orders Doctor IQBAL 1.2.840.114 [id number] [facility] 00:00:00 00:00:00 Only Unassigned, JUAN C 350.1.13.10 ity of [facility] 4.2.7.2.686 [facility] 415.5062243 [facility] [address] 2022-02-26 2022-02-26 (TEL) STLMLC STLMLC [id number] Co mmon 00:00:00 00:00:00 [facility] 2022-02-22 2022-02-22 OFFICE STLMLC STLMLC [id number] Co mmon 00:00:00 00:00:00 VISIT EST Spir it PT LEVEL 3 [facility] 2022-02-21 2022-02-21 (WEB) STLMLC STLMLC [id number] Co mmon 00:00:00 00:00:00 [facility] 2022-02-16 2022-02-16 Outpatient DAYDAY GARICA MDA [facility] [id number] 11:41:03 11:41:13 ELISE card 2022-01-31 2022-01-31 Emergency X CONNIE [facility] ERT [id number] Univers 17:50:00 18:35:00 CATALINA ity of [facility] 2022-01-31 2022-01-31 Emergency Connie AZAIDAN 1.2.840.114 [id number] Univers 17:50:00 18:35:00 Catalina HARPER 350.1.13.10 ity of [place] 4.2.7.2.686 [facility] [id number] [facility] [address] 2022-01-31 2022-01-31 Orders Doctor IQBAL 1.2.840.114 [id number] 00:00:00 00:00:00 Only Unassigned, JUAN C 350.1.13.10 ity of [place] [facility] 4.2.7.2.686 Sid as [id number] [place] [address] [address] 2022-01-29 2022-01-29 Outpatient DAYDAY GARCIA MDA MDA [id number] 12:20:20 14:16:18 ELISE card 2022-01-28 2022-01-28 Outpatient DAYDAY GARCIA MDA MDA [id number] 13:37:48 13:37:57 ELISE card 2022-01-20 2022-01-26 Inpatient ER SIMBAQUEBA MDA [facility] Med [id number] 10:08:00 16:33:00 Jose BENTLEY 2022-01-26 2022-01-26 Inpatient EL NORIS MDA MDA [id number] 05:42:49 06:01:11 Jose BENTLEY BETHANY n 2022-01-25 2022-01-25 Inpatient DAYDAY GARCIA MDA MDA [id number] 12:12:23 12:12:26 ELISE card 2022-01-24 2022-01-24 [facility] MDA MDA [id number] 15:30:48 15:35:17 Morris card 2022-01-22 2022-01-22 Inpatient [facility], ED MDA MDA [id number] 12:18:44 13:10:17 Morris card 2022-01-22 2022-01-22 Inpatient SHAHEEN, MDA MDA [id number] 12:18:49 13:10:13 PATRICIO card 2022-01-20 2022-01-20 Ambulatory nullFlavo MNA [id number] Memoria 15:15:00 15:15:00 Pre-Reg r Neurology 10 l Courtney Gonzalez 2022-01-20 2022-01-20 Ambulatory nullFlavo MNA [id number] Memoria 15:15:00 15:15:00 Pre-Reg r Neurology 10 l Courtney Gonzalez 2022-01-20 2022-01-20 [facility] [id number] Memoria 10:15:00 10:15:00 10 betsey Gonzalez 2022-01-20 2022-01-20 Outpatient [facility] [id number] 10:15:00 10:15:00 [place] 2022-01-19 2022-01-19 Outpatient DAYDAY ROSEN MDA MDA [id number] 13:20:47 15:41:28 ATIF card 2022-01-19 2022-01-19 Outpatient DAYDAY GARCIA MDA MDA [id number] 07:21:27 07:21:27 ELISE card 2022-01-18 2022-01-18 Emergency X SOLEDAD [facility] ERT [id number] Univers 18:17:00 22:21:00 MARLON tello [facility] 2022-01-18 2022-01-18 Emergency Enio Patel [facility] 1.2.840 .114 [id number] Univers 18:17:00 22:21:00 Marlon Rowe 350.1.13. 10 ity [facility] 4.2.7.2.686 [facility] [id number] [address] 2022-01-16 2022-01-16 Emergency X Nicole HUSSEIN [facility] ERT [id number] Univers 18:28:00 20:29:00 ity [facility] 2022-01-16 2022-01-16 Emergency Nicole Hussein [facility] 1..840.114 96 [id number] Univers 18:28:00 20:29:00 Mary HARPER 350.1.13.10 i ty [facility] 4.2.7.2.686 [facility] [id number] [address] 2022-01-16 2022-01-16 Emergency X DAYAN, K [facility] ERT [id number] Univers 18:28:00 20:29:00 ity [facility] 2022-01-16 2022-01-16 Orders Doctor IQBAL 1.2.840.114 [id number] Univers 00:00:00 00:00:00 Only Unassigned, JUAN C 350.1.13.10 ity of [place] [facility] 4.2.7.2.686 Sid as [id number] [facility] [address] 2022-01-14 2022-01-14 Telephone [facility] 1.2.840.114 [id number] Univers 00:00:00 00:00:00 Bety A PRIMARY 350.1.13.10 [place] [phone] Az dical [address] 2022-01-14 2022-01-14 Telephone [facility] 1.2.840.114 [id number] Univers 00:00:00 00:00:00 Bety A PRIMARY 350.1.13.10 [place] [id number] Az dical [address] 2022-01-13 2022-01-13 Outpatient EL EMILIANO, MDA MDA [id number] 15:12:21 16:13:07 GWENDOLYN card 2022-01-13 2022-01-13 Outpatient CARL, [facility] MDA [id number] 16:05:39 16:09:44 STEPHANIE card 2022-01-13 2022-01-13 Outpatient DAYDAY GARCIA, MDA MDA [id number] 12:56:12 15:12:43 ELISE card 2022-01-13 2022-01-13 Outpatient MDA MDA [id number] 12:12:57 12:51:56 Morris card 2022-01-13 2022-01-13 Telephone IVELISSE Almonte 1.2.840.114 [id number] Univers 00:00:00 00:00:00 [facility] HEALTH 350.1.13.10 ity of [place] [id number] [facility] [address] 2022-01-11 2022-01-11 Telephone [facility] 1.2.047.900 [id number] [id number] Univers 00:00:00 00:00:00 [facility] MULTISPEC 350.1.13.10 ity of [place] I[place] C[place] [id number] [facility] [address] [place] [facility] 2022-01-07 2022-01-07 Transition JOHN Carroll 1.2.840.114 [id number] Univers 00:00:00 00:00:00 of Care Sariah ZEPEDA 350.1.13.10 [place] [id number] [facility] [address] 2022-01-07 2022-01-07 Transition JOHN Carroll 1.2.840.114 [id number] Univers 00:00:00 00:00:00 of Care Sariah ZEPEDA 350.1.13.10 [place] 502.8028522 [facility] [address] 2022-01-07 2022-01-07 Patient Doctor [facility] 1.2.840.114 [id number] Univers 00:00:00 00:00:00 Secure Msg Unassigned, MULTISPEC 350.1.13.10 ity of [place] [id number] [facility] [address] [place] [facility] 2021-12-29 2022-01-06 [facility] Will Stratton 1.2.840.1 14 [id number] Univers 06:16:00 12:34:00 Encounter Nell Almonte 350.1 .13.10 ity of [facility] 4.2.7.2.686 [place] Bety Ceja [id number] [place] [id number] [place] 2021-12-29 2022-01-06 Inpatient X MARCIAL [facility] [id number] Univers 06:16:00 12:34:00 BETY tello of [facility] 2022-01-03 2022-01-03 Refill Michael Danielle [facility] 1.2.840.114 [id number] Univers 00:00:00 00:00:00 PRIMARY 350.1.13.10 it y [place] [id number] Az dical [address] 2021-12-30 2021-12-30 Outpatient EL MDA MDA [id number] MD 02:28:57 02:28:57 Morris o n 2021-12-30 2021-12-30 Outpatient EL MDA MDA [id number] MD 02:28:54 02:28:54 Morris o n 2021-12-30 2021-12-30 Outpatient EL MDA MDA [id number] MD 02:28:51 02:28:51 Morris o n 2021-12-30 2021-12-30 Outpatient EL MDA MDA [id number] MD 02:28:48 02:28:48 Morris o n 2021-12-30 2021-12-30 Outpatient EL MDA MDA [id number] MD 02:28:45 02:28:45 Morris o n 2021-12-29 2021-12-29 (TEL) STLC STLC [id number] Co mmon 00:00:00 00:00:00 [facility] 2021-12-25 2021-12-25 Outpatient R ELZBIETA GAONA [facility] 10 [id number] Univers 10:30:00 11:48:01 ELZBIETA GAONA i ty of [facility] 2021-12-25 2021-12-25 Office Kevin AZAIDAN 1.2.840.114 [id number] Univers 10:30:00 11:48:01 Visit Elzbieta HARPER 350.1.13.10 i ty of [place]2.[place] ESS[place] [id number] Az dical NAL [address] [facility] 2021-12-24 2021-12-24 Orders Doctor AFRIDA 1.2.840.114 [id number] Univers 00:00:00 00:00:00 Only Unassigned, JUAN C 350.1.13.10 ity of [place] [facility] 4.2.7.2.686 Sid as [phone] [place] [address] [address] 2021-12-23 2021-12-23 Multidisci ARON Regalado 1.2.840.114 [id number] Univers 00:00:00 00:00:00 plinary Nekita H 350.1.13.10 it y of [address]7.2.686 [place] [id number] [facility] [address] [place] 2021-12-22 2021-12-22 Telephone Kevin [facility] 1.2.013.488 [id number] Univers 00:00:00 00:00:00 Shimeestephie HARPER 350.1.13.10 i ty of [address] PROF[place] [id number] Az dicindia NAL [address] [place] [address] 2021-12-21 2021-12-21 FARIDA Garrison 1.2.840.114 [id number] Univers 00:00:00 00:00:00 Management Suly JUAN C 350.1.13.10 ity [place] [address]..2.686 Sid as [id number] [address] 2021-12-21 2021-12-21 Telephone Kevin [facility] 1.2.275.973 [id number] Univers 00:00:00 00:00:00 Elzbieta HARPER 350.1.13.10 i ty [address]7.2.[place] PROFESS[place] [id number] Az dic[address] 2021-12-21 2021-12-21 [facility] [id number] Co mmon 00:00:00 00:00:00 VISIT EST Spir it PT LEVEL 3 - [facility] 2021-12-17 2021-12-17 (TEL) [facility] [id number] Co mmon 00:00:00 00:00:00 [facility] 2021-12-16 2021-12-16 FARIDA Garrison 1.2.840.114 [id number] Univers 00:00:00 00:00:00 Management Suly JUAN C 350.1.13.10 ity [place] [address].7.2.686 Sid as [id number] [address] 2021-12-15 2021-12-15 Transition JOHN Carroll 1.2.840.114 [id number] Univers 00:00:00 00:00:00 of Care Sariah ZEPEDA 350.1.13.10 [place] [id number] [facility] [address] 2021-12-15 2021-12-15 Case FARIDA Gonzalez 1.2.840.114 [id number] Univers 00:00:00 00:00:00 Management Suly IRIZARRY 350.1.13.10 ity of [facility] 4.2.7.2.686 Sid as [id number] [facility] [address] 2021-12-15 2021-12-15 Telephone SANDY Gaona 1.2.840.114 [id number] Univers 00:00:00 00:00:00 ShiwaFormerly [facility] 350.1.13.10 i ty of [facility] 4.2.7.2.[place] [id number] [facility] [address] 2021-12-08 2021-12-14 Inpatient U DASH RESNICK [facility] [id number] Univers 09:01:00 20:21:00 TONY ity [facility] 2021-12-08 2021-12-14 [facility] Lauren Wheeler 1.2.840.11 [id number] Univers 09:01:00 20:21:00 Encounter Fox Breen 350.1.13. 10 ity [facility] 4.2.7.2.686 [place] [id number] [facility] [address] 2021-12-14 2021-12-14 Surgery MICHELLE Gaona 1.2.840.114 [id number] Univers 11:50:00 13:54:00 Shijuly GROVERY 350.1.13.10 it y of [facility] 4.2.7.2.686 Sid as [id number] [facility] 103 [address] 2021-12-09 2021-12-09 Anesthesia Sixto, 1.2.840.5 [id number] Univers 16:47:07 16:47:07 Event Madyson 01830.1.1 ity of 3.104.2.7 [place] .3.027618 Medica l .8 Branch 2021-12-08 2021-12-08 Travel 1.2.840.1 1.2.324.275 [id number] Univers 00:00:00 00:00:00 29827.1.1 350.1.13.10 ity of 3.104.2.7 4.[place].7.3.698 [place] .3.570503 084.8 Medica l .8 Branch 2021-12-08 2021-12-08 (WEB) STLC STLC [id number] Co mmon 00:00:00 00:00:00 [facility] 2021-12-04 2021-12-05 Outpatient nullFlavo MNA [id number] Memoria 19:45:00 04:59:59 r Neurology 09 l [place] 2021-12-04 2021-12-05 Outpatient nullFlavo MNA [id number] Memoria 19:45:00 04:59:59 r Neurology 09 l Courtney Carlos 2021-12-04 2021-12-04 [id number] 14:45:00 23:59:59 Herbert 09 Karthik 2021-12-04 2021-12-04 Outpatient MHIE MHIE [id number] Memoria 14:45:00 14:45:00 09 betsey Gonzalez 2021-11-30 2021-11-30 (WEB) [facility] ST[facility] [id number] Co mmon 00:00:00 00:00:00 [facility] 2021-11-29 2021-11-29 Emergency X RIDDLE, [facility] ERT [id number] Univers 16:59:00 19:13:00 EULOGIO it y of [facility] 2021-11-29 2021-11-29 Emergency [place], 1.2.840.9 [id number] Univers 16:59:00 19:13:00 Eulogio 96937.1.1 ity of 3.104.2.7 [place] .3.785417 Medica l .8 Branch 2021-11-29 2021-11-29 Travel 1.2.840.1 1.2.629.061 [id number] [id number] Univers 00:00:00 00:00:00 14200.1.1 350.1.13.10 ity of 3.104.2.7 4.2.7.3.698 [place] .3.660322 084.8 Medica l .[address] [place] 2021-11-28 2021-11-28 Nurse Britton Hancock 1.2.840.8 [id number] Univers 15:30:00 15:50:00 [facility] 35180.1.1 ity of 3.104.2.7 [place] .3.603206 Medica l .[address] [place] 2021-11-28 2021-11-28 Urgent [place], 1.2.840.5 [id number] 049 Univers 15:20:00 15:40:00 Care Britton 36063.1.1 ity of 3.104.2.7 [place] .3.757084 Medica l .[address] [place] 2021-11-28 2021-11-28 [facility] [id number] Univers 15:30:00 15:30:00 BRITTON ity of [facility] 2021-11-28 2021-11-28 Outpatient R SANTI [facility] [id number] Univers 15:20:00 15:20:00 BRITTON ity of [facility] 2021-11-28 2021-11-28 Orders Doctor 1.2.840.0 [id number] Univers 00:00:00 00:00:00 Only Unassigned, 05925.1.1 ity of [place] 3.104.2.7 [place] .3.902090 Medica l .[address] [place] 2021-11-28 2021-11-28 Travel 1.2.840.1 1.2.624.555 0291 [id number] Univers 00:00:00 00:00:00 54083.1.1 350.1.13.10 ity of 3.104.2.7 4.2.7.3.698 [place] .3.817420 084.8 Medica l .[address] [place] 2021-11-26 2021-11-26 (WEB) [facility] [id number] Co mmon 00:00:00 00:00:00 [facility] 2021-11-21 2021-11-[address] [facility] [id number] Memoria 15:32:00 04:59:00 Services r Outpatient 00 l Imaging [place] 2021-11-21 2021-11-[address] [facility] [id number] Memoria 15:32:00 04:59:00 Services r Outpatient 00 l Imaging [place] 2021-11-21 2021-11-21 Outpatient MANISH Larson [facility] [id number] 10:32:00 23:59:00 Herbert 00 Karthik 2021-11-15 2021-11-15 Emergency X QUINN [facility] ERT [id number] Univers 06:29:00 08:25:00 ALCIDES tello of [facility] 2021-11-15 2021-11-15 Emergency Alcides Schulz S 1.2.840.1 [id number] Univers 06:29:00 08:25:00 Catalina Rosales 66620.1.1 ity of 3.104.2.7 [place] .3.986240 Medica l .[address] [place] [address] 2021-11-15 2021-11-15 Travel 1.2.840.1 1.2.623.950 2987 [id number] Univers 00:00:00 00:00:00 91196.1.1 350.1.13.10 ity of 3.104.2.7 4.2.7.3.698 [place] .3.906700 084.8 Medica l .[address] [place] [address] 2021-11-06 2021-11-06 Ambulatory nullFlavo MNA [id number] Memoria 18:30:00 18:30:00 Pre-Reg r Neurology 07 l [place] 2021-11-06 2021-11-06 Ambulatory nullFlavo MNA [id number] Memoria 18:30:00 18:30:00 Pre-Reg r Neurology 07 l Courtney Suarezann 2021-11-06 2021-11-06 [facility] [id number] Memoria 13:30:00 13:30:00 07 l Carlos 2021-11-06 2021-11-06 Outpatient Neo, MISCHER MISCHER [id number] 13:30:00 13:30:00 Herbert 07 Karthik 2021-11-05 2021-11-06 Outpatient nullFlavo MNA [id number] Memoria 19:30:00 04:59:59 r Neurology 08 l [place] 2021-11-05 2021-11-06 Outpatient nullFlavo MNA [id number] Memoria 19:30:00 04:59:59 r Neurology 08 l Courtney Gonzalez 2021-11-05 2021-11-05 Outpatient Neo, MHMISCHER MHMISCHER [id number] 14:30:00 23:59:59 Herbert 08 Karthik 2021-11-05 2021-11-05 Outpatient MHIE MHIE [id number] Memoria 14:30:00 14:30:00 08 betsey Carlos 2021-11-04 2021-11-04 (WEB) STLMLC STLMLC [id number] Co mmon 00:00:00 00:00:00 [facility] 2021-11-02 2021-11-03 Inpatient MELY, [facility] [id number] [place] 00:00:00 00:00:00 EDUARD 942 [facility] 2021-10-30 2021-10-30 Outpatient PENINEI, [facility] [id number] [place] 00:00:00 00:00:00 KEVIN 147 [facility] 2021-10-30 2021-10-30 Outpatient JOHN, [facility] [id number] [place] 00:00:00 00:00:00 RACHELL 095 [facility] 2021-10-29 2021-10-29 (WEB) STLMLC STLMLC [id number] Co mmon 00:00:00 00:00:00 [facility] 2021-10-29 2021-10-29 (WEB) STLMLC STLMLC [id number] Co mmon 00:00:00 00:00:00 [facility] 2021-10-22 2021-10-22 (WEB) STLMLC STLMLC [id number] Co mmon 00:00:00 00:00:00 [facility] 2021-10-21 2021-10-21 Outpatient JINNY, [facility] [id number] [place] 00:00:00 00:00:00 KEVIN [address] 2021-10-17 2021-10-17 (WEB) STLMLC STLMLC [id number] Co mmon 00:00:00 00:00:00 [facility] 2021-10-16 2021-10-16 OFFICE STLMLC STLMLC [id number] Co mmon 00:00:00 00:00:00 VISIT EST Spir it PT LEVEL 3 [facility] 2021-10-16 2021-10-16 (WEB) STLMLC STLMLC [id number] Co mmon 00:00:00 00:00:00 [facility] 2021-08-27 2021-08-27 Outpatient R MICHAEL [facility] [id number] Univers 14:23:42 23:59:00 [facility]-08-27 2021-08-27 [facility] [id number] Univers 14:23:42 23:59:00 [facility] [id number] ity [place] [id number] Sid as NELY?BLEA [phone] [facility] [address] [facility] 2021-08-27 2021-08-27 Urgent SaragoldenGerman [facility] [id number] Univers 14:20:00 14:49:15 Care Unknown, Attending HEALTH [id number] ity [place] [id number] Sid as NELY?BLEA [phone] Az dical [facility] [address] MEDICAL OFFICE BUILDING 2021-08-27 2021-08-27 (TEL) STLMLC STLMLC [id number] Co mmon 00:00:00 00:00:00 [facility] 2021-08-21 2021-08-21 OFFICE STLMLC STLMLC [id number] Co mmon 00:00:00 00:00:00 VISIT EST Spir it PT LEVEL 3 [facility] 2021-08-20 2021-08-20 (TEL) STLMLC STLMLC [id number] Co mmon 00:00:00 00:00:00 [facility] 2021-07-13 2021-07-13 (WEB) STLMLC STLMLC [id number] Co mmon 00:00:00 00:00:00 [facility] 2021-06-25 2021-06-25 Ambulatory nullFlavo MNA [id number] Memoria 15:30:00 15:30:00 Pre-Reg r Neurology 06 l [place] 2021-06-25 2021-06-25 Ambulatory nullFlavo MNA [id number] Memoria 15:30:00 15:30:00 Pre-Reg r Neurology 06 l Courtney Suarezann 2021-06-25 2021-06-25 Outpatient MHIE MHIE [id number] Memoria 09:30:00 09:30:00 06 betsey Carlos 2021-06-25 2021-06-25 [facility] [id number] 09:30:00 09:30:00 Herbert Patricia Karthik 2021-04-29 2021-04-29 (WEB) STLMLC STLMLC [id number] Co mmon 00:00:00 00:00:00 [facility] 2021-03-12 2021-03-12 (WEB) STLMLC STLMLC [id number] Co mmon 00:00:00 00:00:00 [facility] 2021-03-12 2021-03-12 OFFICE STLMLC STLMLC [id number] Co mmon 00:00:00 00:00:00 VISIT EST Spir it PT LEVEL 3 [facility] 2021-02-05 2021-02-06 Outpatient nullFlavo MNA [id number] Memoria 15:30:00 04:59:59 r Neurology 05 l Courtney Gonzalez 2021-02-05 2021-02-06 Outpatient nullFlavo MNA [id number] Memoria 15:30:00 04:59:59 r Neurology 05 l Courtney Gonzalez 2021-02-05 2021-02-05 Outpatient MANUEL Larson [facility] [id number] 10:30:00 23:59:59 Herbert Jan Angeles 2021-02-05 2021-02-05 Outpatient MHIE MHIE [id number] Memoria 10:30:00 10:30:00 05 betsey Carlos 2020-12-30 2020-12-30 Outpatient STLMLC STLMLC [id number] Common 00:00:00 00:00:00 [facility] 2020-12-29 2020-12-29 Outpatient STLMLC STLC [id number] Common 00:00:00 00:00:00 [facility] 2020-12-10 2020-12-10 Outpatient R BRENNEN MADERA [facility] [id number] Univers 15:30:00 15:30:00 BRENNEN MADERA [facility] 2020-11-13 2020-11-13 Outpatient R IDANIA [facility] [id number] Univers 10:00:00 10:00:00 AMY costa [facility] 2020-11-11 2020-11-11 Outpatient STLMLC STLC [id number] Common 00:00:00 00:00:00 [facility] 2020-11-04 2020-11-05 Outpatient nullFlavo MNA [id number] Memoria 14:45:00 04:59:59 r Neurology 04 l Pinaldaniel Suarezann 2020-11-04 2020-11-05 Outpatient nullFlavo MNA [id number] Memoria 14:45:00 04:59:59 r Neurology 04 l Pinaldaniel Suarezann 2020-11-04 2020-11-04 Outpatient MANUEL Larson [facility] [id number] 09:45:00 23:59:59 Herbert Jennifer Angeles 2020-11-04 2020-11-04 Outpatient MHIE MHIE [id number] Memoria 09:45:00 09:45:00 Jennifer leggett Carlos 2020-10-31 2020-10-31 Hospital [facility] [id number] Univers 12:14:44 23:59:00 Encounter Amy Harper [id number] [id number] [phone] [facility] [address] 2020-10-31 2020-10-31 Bean Snipper 2, Adc Lab [facility] 1.2.840.114 [id number] Univers 11:38:32 11:53:32 Visit Amy Alcala [id number] [id number] [phone] [place] dical nal 353 [facility] 2020-10-31 2020-10-31 Office [facility] 1.2.840.114 [id number] Univers 10:46:22 11:31:14 Visit Amy Harper [id number] [id number] [phone] Az dical nal 059 [facility] 2020-10-31 2020-10-31 [facility] [id number] Univers 10:40:00 10:40:00 AMY luciay o f [facility] 2020-10-31 2020-10-31 Orders Doctor FARIDA 1.2.840.114 [id number] Univers 00:00:00 00:00:00 Only Unassigned, JUAN C [id number] ity of [place] [facility] [id number] Sid as [phone] [facility] [address] 2020-10-30 2020-10-30 Outpatient STLMLC STLMLC [id number] Common 00:00:00 00:00:00 [facility] 2020-10-09 2020-10-09 Outpatient STLMLC STLMLC [id number] Common 00:00:00 00:00:00 [facility] 2020-09-05 2020-09-07 Outside nullFlavo [place] [id number] Memoria 16:24:59 04:59:59 Medical r Neurology 00 l Records Courtney Gonzalez 2020-09-05 2020-09-07 Outside nullFlavo MNA [id number] Memoria 16:24:59 04:59:59 Medical r Neurology 00 l Records Courtney Gonzalez 2020-09-05 2020-09-06 Outpatient MHMISCHER [facility] [id number] 11:24:59 23:59:59 00 2020-09-03 2020-09-04 Outpatient nullFlavo MNA [id number] Memoria 13:15:00 04:59:59 r Neurology 03 l Courtney Gonzalez 2020-09-03 2020-09-04 Outpatient nullFlavo MNA [id number] Memoria 13:15:00 04:59:59 r Neurology 03 l Courtney Gonzalez 2020-09-03 2020-09-03 Outpatient [facility] [id number] 08:15:00 23:59:59 Herbert Rafi [place] 2020-09-03 2020-09-03 Outpatient MHIE CAM [id number] Memoria 08:15:00 08:15:00 03 betsey Gonzalez 2020-08-20 2020-08-21 Outpatient nullFlavo MNA [id number] Memoria 16:00:00 04:59:59 r Neurology 02 l Courtney Gonzalez 2020-08-20 2020-08-21 Outpatient nullFlavo MNA [id number] Memoria 16:00:00 04:59:59 r Neurology 02 l Courtney Gonzalez 2020-08-20 2020-08-20 Outpatient [facility] [id number] 11:00:00 23:59:59 Herbert Ibeth [place] 2020-08-20 2020-08-20 Outpatient MHIE MHIE [id number] Memoria 11:00:00 11:00:00 02 betsey Gonzalez 2020-08-20 2020-08-20 Orders Doctor FARIDA 1.2.840.114 [id number] 00:00:00 00:00:00 Only Unassigned, JUAN C [id number] ity of [place] [facility] [id number] [facility] [phone] [facility] [address] 2020-07-31 2020-07-31 Outpatient STLMLC STLMLC [id number] Common 00:00:00 00:00:00 [facility] 2020-07-30 2020-07-30 Outpatient STLMLC STLMLC [id number] Common 00:00:00 00:00:00 [facility] 2020-07-09 2020-07-09 Outpatient STLMLC STLMLC [id number] Common 00:00:00 00:00:00 [facility] 2020-07-09 2020-07-09 Outpatient STLMLC STLMLC [id number] Common 00:00:00 00:00:00 [facility] 2020-06-10 2020-06-10 Outpatient STLMLC STLMLC [id number] Common 00:00:00 00:00:00 [facility] 2020-06-04 2020-06-04 Outpatient STLMLC STLMLC [id number] Common 00:00:00 00:00:00 [facility] 2020-05-15 2020-05-15 Outpatient STLMLC STLMLC [id number] Common 00:00:00 00:00:00 [facility] 2020-05-09 2020-05-09 Outpatient STLMLC STLMLC [id number] Common 00:00:00 00:00:00 [facility] 2020-05-08 2020-05-08 Outpatient STLMLC STLMLC [id number] Common 00:00:00 00:00:00 [facility] 2020-05-01 2020-05-01 Outpatient STLMLC STLMLC [id number] Common 00:00:00 00:00:00 [facility] 2020-04-16 2020-04-16 Outpatient STLMLC STLMLC [id number] Common 00:00:00 00:00:00 [facility] 2020-03-28 2020-03-28 Outpatient STLMLC STLMLC [id number] Common 00:00:00 00:00:00 [facility] 2020-03-20 2020-03-20 Outpatient STLMLC STLMLC [id number] Common 00:00:00 00:00:00 [facility] 2020-03-16 2020-03-16 Outpatient STLMLC STLMLC [id number] Common 00:00:00 00:00:00 [facility] 2020-03-14 2020-03-14 Outpatient STLMLC STLMLC [id number] Common 00:00:00 00:00:00 [facility] 2020-03-12 2020-03-12 Outpatient STLMLC STLMLC [id number] Common 00:00:00 00:00:00 [facility] 2020-02-08 2020-02-08 [facility] [id number] Common 14:02:00 14:02:[address] [facility] 2020-02-07 2020-02-07 [facility] [id number] Common 14:50:00 14:50:[address] [facility] 2020-01-25 2020-01-25 Out[facility] [id number] Common 11:45:00 11:45:[address] [facility] 2020-01-21 2020-01-21 Out[facility] [id number] Common 09:50:00 09:50:[address] [facility] 2020-01-14 2020-01-14 [facility] [id number] Common 16:30:00 16:30:[address] [facility] 2020-01-07 2020-01-07 Outpatient [facility] [id number] Common 10:58:00 10:58:00 [facility] 2019-12-31 2019-12-31 [facility] [id number] Common 08:32:00 08:32:[address] [facility] 2019-08-21 2019-08-21 Outpatient R MARGO [facility] [id number] Univers 08:00:00 08:00:00 BENSON ity [facility] 2019-07-27 2019-07-27 [facility] [id number] Univers 18:25:00 23:59:00 Encounter Alysia [facility] 350.1.13.10 ity of Surgical 4.2.7.2.686 Sid as Specialti [phone] Me dical es 808 [facility] 2019-07-27 2019-07-27 Outpatient R DIAZ [facility] [id number] Univers 18:25:00 23:59:00 [facility]-07-27 2019-07-27 Urgent ErikSaeErik Em Gaudencio [facility] 1.2.840.114 [id number] Univers 18:01:42 19:12:57 Care Unknown, Attending Health 350.1.13.10 ity of DiazAlysia E Surgical 4.2.7.2.686 [place] Specialti [phone] Me dical es 370 [facility] 2019-07-11 2019-07-11 Outpatient R SEAN [facility] [id number] Univers 07:58:45 23:59:00 LUIS ALBERTO ity [facility] 2019-07-11 2019-07-11 [facility] 1.2.840.114 [id number] Univers 07:58:00 23:59:00 Encounter Luis Alberto [facility] [id number] ity of [place] 4.2.7.2.686 [facility] [phone] [address] 2019-07-11 2019-07-11 Urgent Kelsey Hewitt [facility] .2.840.11 [id number] Univers 18:13:43 18:52:39 Care Unknown, Attending Health 350.1.13.10 ity of Surgical 4.2.7.2.686 Sid as Specialti [phone] Me dical es 370 [facility] 2019-07-11 2019-07-11 Telephone [facility] 1.2.840.114 [id number] Univers 00:00:00 00:00:00 Kelsey [employer] 350.1.13.10 it y of Surgical 4.2.7.2.686 Sdi as Specialti [phone] Az dical es [address] [place] 2019-05-07 2019-05-07 Out[facility] [id number] Common 13:30:00 13:30:00 t [email or web address] [facility] 2019-01-17 2019-01-17 Ambulatory nullFlavo MHMG [id number] Memoria 15:00:00 15:00:00 Pre-Reg r Primary 01 l Care Carlos [place] 2019-01-17 2019-01-17 Ambulatory nullFlavo MHMG [id number] Memoria 15:00:00 15:00:00 Pre-Reg r Primary 01 l Care [place] 2019-01-17 2019-01-17 Outpatient MHIE MHIE [id number] Memoria 10:00:00 10:00:00 01 betsey Gonzalez 2019-01-17 2019-01-17 Outpatient Darnell, MG MG [id number] 10:00:00 10:00:00 Edward 01 Michael 2018-11-27 2018-11-28 [place] [id number] Memoria 16:15:00 04:59:59 r Primary 00 l Care [place] Madhuri jaky Hong 2018-11-27 2018-11-28 Outpatient nullFlavo MHMG [id number] Memoria 16:15:00 04:59:59 r Primary 00 l Care [place] jaky Hong 2018-11-27 2018-11-27 Outpatient Darnell, MG [place] [id number] 11:15:00 23:59:59 Edward 00 Michael 2018-11-27 2018-11-27 Outpatient MHIE MHIE [id number] Memoria 11:15:00 11:15:00 00 betsey Gonzalez Results Test Description Test Time Test Comments Results Result Comments Source Prepare Packed RBC (in units), 1 Units 2023-03-09 08:12:45 Test Item Value Reference Range Interpretation Comme nts Cross Match Result (test code = Compatible 4409) ISBT Blood Type Code (test code = 5100 542846) Unit Blood Type (test code = 4410) O Pos Unit Number (test code = 4411) [id number] Blood Expiration Date & Time (test [id number] code = 672342) Status Information (test code = Issued 4411) Product Identification (test code = Red Blood Cells 4413) Product Code (test code = 4414) [id number] Performed at [facility] Laboratory Services [facility] Blood [address] [place], [place] [address]Toll Free: [phone] No. [id number] [facility] RBC (in units), 2 Units 2023-03-09 04:18:05 Test Item Value Reference Range Interpretation Comments Cross Match Result Compatible (test code = 4409) ISBT Blood Type Code 5100 (test code = 243331) Unit Blood Type (test O Pos code = 4410) Unit Number (test [id number] code = 4411) Blood Expiration Date [id number] & Time (test code = 870168) Status Information Issued (test code = 4412) Product Red Blood Cells Identification (test code = 4413) Product Code (test [id number] Performed at [facility] code = 4414) Laboratory Services [facility] Blood [address] [place], [place] [address]Toll Free: [phone] A No. [id number] [facility] CenterLactic Acid Whole [id number] 23:17:59 Test Item Value Reference Range Interpretation Comments LACTIC ACID (test code = 3.38 mmol/L 0.50-2.20 H 5397344046) Lab Interpretation (test code = Abnormal 75897-2) [facility] CenterACTIVATED PARTIAL THRMPLAS [id number] 22:43:29 Test Item Value Reference Range Interpretation Comments APTT Patient (test 24 See_Comment [Automat ed code = 3173-2) message] The system which generated this result transmitted reference range : 23 - 38 Seconds . The reference range was not used to interpr et this result as normal/abnormal . JJ (test code = JJ) The [facility] patient population mean normal value for aPTT is 30 seconds. Lab Interpretation Normal (test code = 74111-2) [facility] WITH [id number] 22:21:58 Test Item Value Reference Range Interpretation Comments WBC (test code = 13.99 See_Comment H [Automated 6690-2) message] The sy stem which generated this result transmitted reference range : 4.30 - 11.10 10*3/?L. The reference range was not used to interpret this result as normal/abnormal . RBC (test code = 1.41 See_Comment L [Automated 789-8) message] The sy stem which generated this [...] RDW-SD (test code = 47.7 fL 39.0-49.9 95309-9) RDW-CV (test code = 18.1 % 12.0-15.5 H 788-0) PLT (test code = 445 See_Comment H [Automated 777-3) message] The sy stem which generated this result transmitted reference range : 166 - 358 10*3/ ?L. The reference r champ was not used to interpret this result as normal/abnormal . MPV (test code = 10.7 fL 9.5-12.9 30333-6) IPF % (test code = 3.5 % 1.3-7.7 Platelet count 9909766114) measured by fluorescence method. NRBC/100 WBC (test 0.3 See_Comment [Automat ed code = 1411980981) message] The system which generated this result transmitted reference range : 0.0 - 10.0 /100 WBCs. The refer ence range was not u sed to interpret th is result as normal/abnormal . NRBC x10^3 (test code 0.04 See_Comment [Auto mated = 5564713834) message] The s [employer] which generated this result transmitted reference range : 10*3/?L. The reference range was not used to interpret this result as normal/abnormal . GRAN MAT (NEUT) % 82.5 % (test code = 770-8) IMM GRAN % (test code 0.70 % = 4578030722) LYMPH % (test code = 11.7 % 736-9) MONO % (test code = 4.9 % 5905-5) EOS % (test code = 0.1 % 713-8) BASO % (test code = 0.1 % 706-2) GRAN MAT x10^3(ANC) 11.54 10*3/uL 1.88-7.09 H (test code = 3043303364) IMM GRAN x10^3 (test 0.10 10*3/uL 0.00-0.06 H code = 0679930819) LYMPH x10^3 (test 1.64 10*3/uL 1.32-3.29 code = 731-0) MONO x10^3 (test code 0.69 10*3/uL 0.33-0.92 = 742-7) EOS x10^3 (test code 0.03-0.39 L = 711-2) BASO x10^3 (test code 0.01-0.07 = 704-7) Lab Interpretation Abnormal (test code = 91008-8) [facility] CenterLUCAS [id number] 21:22:17 Test Item Value Reference Range Interpretation Comments TROPONIN I (test code = 0.001 ng/mL <=0.034 3906730820) JJ (test code = JJ) Reference (Normal) [...] biotin. Lab Interpretation Normal (test code = 31557-5) [facility] CenterN-TERMINAL [id number] 21:19:34 Test Item Value Reference Range Interpretation Comments NT-proBNP (test code = 196 pg/mL <=125 42354-3) JJ (test code = JJ) Result Indeterminate-Consid er causes of NT-proBNP elevation other than Heart failure such as acute coronary syndrome, pulmonary embolism, pulmonary hypertension, sepsis, stroke, and renal dysfunction. Lab Interpretation (test Abnormal code = 57266-3) [facility] CenterCOMP. METABOLIC PANEL (73871)2023-03-08 21:11:11 Test Item Value Reference Range Interpretation Comments NA (test code = 137 mmol/L 135-145 0851071286) K (test code = 3.7 mmol/L 3.5-5.0 4857018480) CL (test code = 103 mmol/L 98-108 5805089431) CO2 TOTAL (test code = 17 mmol/L 23-31 L 1879169395) AGAP (test code = 17 2-16 H 2245240931) BUN (test code = 12 mg/dL 7-23 3592141222) GLUCOSE (test code = 150 mg/dL 70-110 H 3202589702) CREATININE (test code = 0.58 mg/dL 0.50-1.04 0289734972) TOTAL BILI (test code = 0.3 mg/dL 0.1-1.7 2637778272) CALCIUM (test code = 7.5 mg/dL 8.6-10.6 L 0985758793) T PROTEIN (test code = 6.6 g/dL 6.3-8.2 6187241821) ALBUMIN (test code = 3.2 g/dL 3.5-5.0 L 3203588040) ALK PHOS (test code = 64 U/L 34-122 4080753047) ALTv (test code = 14 U/L 5-35 1742-6) AST(SGOT) (test code = 45 U/L 13-40 H 5821852284) eGFR (test code = 108.3 mL/min/1.73m2 1690546882) JJ (test code = JJ) Association of [...] tests). Lab Interpretation Abnormal (test code = 72731-0) [facility] CenterPROTHROMBIN TIME / [id number] 21:10:35 Test Item Value Reference Range Interpretation Comments PROTIME PATIENT (test 14.4 See_Comment [Auto mated message] code = 5964-2) The system [employer] generated this result transmitted ref erence range: 12.0 - 1 4.7 Seconds. The re ference range was not u sed to interpret this result as normal/abnor mal. INR (test code = 6301-6) 1.1 Nor mal INR <1.1; Warfarin Therap eutic range 2.0 to 3. 0 or 2.5 to 3.5, dep ending upon the indica tions. Lab Interpretation (test Normal code = 10861-5) [facility] CenterLactic Acid Whole [id number] 20:35:03 Test Item Value Reference Range Interpretation Comments LACTIC ACID (test code = 4.23 mmol/L 0.50-2.20 H 2219521492) Lab Interpretation (test code = Abnormal 18260-7) [facility] CenterSARS-CoV-2 (COVID-19) RNA [Presence] in Respiratory specimen by VITALIY with probe [id number] 01:12:19 Test Item Value Reference Range Interpretation Comments SARS-CoV-2 (COVID-19) RNA Not detected [Presence] in Respiratory specimen by VITALIY with probe detection (test code = 81995-4) Whether patient is employed in a Unknown healthcare setting (test code = 35155-8) Whether the patient has symptoms Unknown related to condition of interest (test code = 97359-2) Whether the patient was Unknown hospitalized for condition of interest (test code = 39308-1) Whether the patient was admitted Unknown to intensive care unit (ICU) for condition of interest (test code = 18328-2) Whether patient resides in a Unknown congregate care setting (test code = 40142-0) status (test code = Unknown 68582-6) Date and time of symptom onset Unknown (test code = 00011-5) MUSA NATHAN"
[2023-04-18] MEDS ORDERED: NA CHLORIDE 0.9% 1,000 ML ONE (07:56)
[2023-04-18] MEDS ORDERED: IPRATROPIUM BROM 0.5MG/2.5ML ONE (07:56)
[2023-04-18] MEDS ORDERED: ALBUTEROL 2.5 MG/3 ML NEB SOL ONE (07:56)
[2023-04-18 07:57] LABS: Absolute Lymphocytes (CBC) 1.2 K/uL (0.7-4.9); Hematocrit 22.6 % (36.0-45.0); Lymphocytes % 9.5 % (15.3-44.8); MCV 79.1 fL (80-100); MPV 6.3 fL (7.6-11.3); Platelets 714 thou/uL (152-406); RBC Red Blood Cell Count 2.86 M/uL (3.86-4.86)
[2023-04-18 07:58] LABS: Protime INR 1.34
[2023-04-18 08:19] LABS: Albumin 2.5 g/dL (3.4-5.0); Bilirubin Direct 0.2 mg/dL (0-0.2); Bilirubin Indirect, Calculated 0.3 mg/dL (0.2-0.8); Bilirubin Total 0.5 mg/dL (0.2-1.0); Potassium 3.5 mEq/L (3.5-5.1); Protein, Total 8.3 g/dL (6.4-8.2); Troponin High Sensitivity 4.1 pg/mL (<58.9)
[2023-04-18 08:21] LABS: SARS-CoV-2 Antigen Rapid Res Negative (Negative)
--- NOTE | 2023-04-18 08:47 | RAD REPORT ---
EXAM DESCRIPTION: Lisa Single View04/18/2023 7:59 am CLINICAL HISTORY: Cough COMPARISON: none FINDINGS: Tracheostomy tube is present. The air-filled trachea is not well visualized in the region of the tip of the tracheostomy tube Prominent right superior mediastinal opacity. 1.1 centimeter nodular opacity overlies mid to lower right lung. Area subsegmental atelectasis or scarring right lung base Left lung appears clear of acute infiltrate. The heart is mildly enlarged IMPRESSION: Prominent right superior mediastinal opacity. Patient is rotated. This could represent t ortuous brachiocephalic vessels or a mass. 1.1 centimeter nodular opacity overlies the right lung which may represent a pulmonary nodule Tracheostomy tube as described above
[2023-04-18 09:32] LABS: White Blood Cell Scan OK (OK)
[2023-04-18 09:34] LABS: Anisocytosis SLIGHT; Blood Morphology Comment NOTED (NOT SEEN); Platelet Estimate INCR
[2023-04-18] MEDS ORDERED: VANCOMYCIN 1 GM/VIAL ONE (09:56)
[2023-04-18] MEDS ORDERED: MAGNESIUM SULFATE 1 gm IVPB 1 GM/100 ML BAG IV ONE (09:57)
[2023-04-18] MEDS ORDERED: NA CHLORIDE 0.9% 100 ML ONE ×3 (09:57→11:43)
[2023-04-18] MEDS ORDERED: FAMOTIDINE 20 MG/2 ML VIAL IV ONE (09:57)
--- NOTE | 2023-04-18 10:12 | ER ---
Nurse's Notes [facility] Name: Sherrie Rojas Age: 52 yrs Sex: Female : 1970 Arrival Date: 04/18/2023 Time: 06:19 Bed 5 Private MD: Diagnosis: Tracheostomy status;Tracheostomy complications;Mild persistent asthma;Cellulitis and acute lymphangitis of face and neck;Anemia in neoplastic disease;Anemia, unspecified Presentation: 04/18 06:29 Chief complaint: Patient states: pt had her trach exchange recently and ever since as6 feels like it's infected and has had trouble catching her breath. pt reports at home her O2 was reading 77%. Coronavirus screen: At this time, the client does not indicate any symptoms associated with coronavirus-19. Ebola Screen: No symptoms or risks identified at this time. Initial Sepsis Screen: Does the patient meet any 2 criteria? No. Patient's initial sepsis screen is negative. Does the patient have a suspected source of infection? No. Patient's initial sepsis screen is negative. Risk Assessment: Do you want to hurt yourself or someone else? Patient reports no desire to harm self or others. Onset of symptoms was April 18, 2023. 06:29 Method Of Arrival: Wheelchair as 06:29 Acuity: LEVI 3 as6 Triage Assessment: 07:05 General: Appears in no apparent distress. uncomfortable, Behavior is calm, cooperative. rs5 Respiratory: Reports. Respiratory: Reports "I have allergies to a lot of things and I guess something must have triggered me to have a kind of allergic reaction. I was at home and began feeling short of breath and started having trouble breathing, I checked my O2 saturations and they read 87%, I took some Benadryl, and had my girlfriend drive me here. I don't remember the dose of Benadryl, but I am now feeling much better and I don't feel so short of breath. This has happened to me several times before." Trachea midline Respiratory effort is even, unlabored, Respiratory pattern is regular, symmetrical, the patient has mild shortness of breath. Historical: - Allergies: :32 Hand Assorter Laundry; 06:32 Iodine; 06:32 Latex; 06:32 sulfamethoxazole-trimethoprim; as6 06:32 Levofloxacin; as6 06:32 Silicone; as6 - PMHx: 06:32 Asthma; esophageal cancer; tracheostomy; as6 - PSHx: 06:32 Total abdominal hysterectomy; as6 - Immunization history:: Adult Immunizations up to date. - Social history:: Smoking status: Patient denies any tobacco usage or history of. Screenin:05 [facility] ED Fall Risk Assessment (Adult) History of falling in the last 3 months, rs5 including since admission No falls in past 3 months (0 pts) Confusion or Disorientation No (0 pts) Intoxicated or Sedated No (0 pts) Impaired Gait No (0 pts) Mobility Assist Device Used No (0 pt) Altered Elimination No (0 pt) Score/Fall Risk Level 0 - 2 = Low Risk Oriented to surroundings, Maintained a safe environment. Abuse screen: Denies threats or abuse. Nutritional screening: No deficits noted. Tuberculosis screening: No symptoms or risk factors identified. Assessment: 07:05 General: Appears in no apparent distress. uncomfortable, Behavior is calm, cooperative. rs5 Pain: Denies pain. Neuro: Level of Consciousness is awake, alert, obeys commands, Oriented to person, place, time, situation. Cardiovascular: Heart tones S1 S2 present Rhythm is regular. Respiratory: Airway is patent Trachea midline Respiratory effort is even, unlabored, Respiratory pattern is regular, symmetrical, Breath sounds are clear bilaterally. GI: Abdomen is round non-distended, Bowel sounds present X 4 quads. Abd is soft and non tender X 4 quads. : No signs and/or symptoms were reported regarding the genitourinary system. EENT: No signs and/or symptoms were reported regarding the EENT system. Derm: Skin is intact, Skin is pink, warm \\T\\ dry. Derm: large reddened mass noted to left side of throat. No drainage or signs of infection noted. Pt's family states "She has throat cancer". Musculoskeletal: Range of motion: intact in all extremities, Swelling present in right arm Pt states "My arm has been like this for a few weeks now, I went to a [facility] hospital and they did an ultrasound and they didn't find anything." No redness noted to right arm, pt denies pain, full range of motion and sensation intact in affected extremity. 07:30 Reassessment: Pt states "I don't want to take the albuterol that you guys give because rs5 it is not cruelty-free, I have albuterol medication with me, could I take that instead?" Provider notified, provider agrees that it's safe and okay to administer the albuterol medication pt brought from home. 09:15 Reassessment:. Reassessment: Pt states "The tumor on my throat hurts sometimes, I rs5 usually take liquid Tylenol for it" Provider notified. Pain: Complains of pain in mass on throat Pain does not radiate. Pain currently is 5 out of 10 on a pain scale. Quality of pain is described as aching, Pain began gradually, Is continuous. 10:40 Reassessment: To bedside to adm albuterol medication pt brought from home per MD verbal rs5 orders. 10:45 Reassessment: Blood transfusion consent form signed by pt and provider. rs5 12:11 Reassessment: To bedside for blood administration. Blood transfusion started at 50 rs5 ml/hr for first 15 min. Remained at bedside for first 15 min, no adverse reaction noted, rate increased to 225 ml/hr, see transfusion record for more information. 12:15 Reassessment: Failed attempt to call report. rs5 12:25 Reassessment: Successful attempt to call report. rs5 12:30 Reassessment: Patient and/or family updated on plan of care and expected duration. Pain rs5 level reassessed. Patient is alert, oriented x 3, equal unlabored respirations, skin warm/dry/pink. Patient denies pain at this time. Respiratory: Trachea midline Respiratory effort is even, unlabored, Respiratory pattern is regular, symmetrical. 12:30 Cardiovascular: Rhythm is regular. rs5 Vital Signs: 06:29 BP 125 / 70; Pulse 88; Resp 20 S; Temp 98.7(TE); Pulse Ox 94% on R/A; Weight 55.79 kg as6 (R); Height 5 ft. 3 in. (R); Pain 5/10; 08:32 BP 121 / 71; Pulse 80; Resp 17; Pulse Ox 99% ; rs5 11:49 BP 121 / 71; Pulse 80; Resp 17; Temp 97.8(TE); Pulse Ox 99% ; rs5 11:55 BP 129 / 72; Pulse 84; Resp 18; Temp 97.8(TE); Pulse Ox 98% on R/A; rs5 12:00 BP 127 / 69; Pulse 87; Resp 19; Temp 97.8(TE); Pulse Ox 98% on R/A; rs5 12:05 BP 133 / 70; Pulse 87; Resp 18; Temp 97.8(TE); Pulse Ox 99% ; rs5 12:20 BP 130 / 73; Pulse 88; Resp 19; Temp 97.7(TE); Pulse Ox 99% on R/A; rs5 06:29 Body Mass Index 21.79 (55.79 kg, 160.02 cm) as6 06:29 Pain Scale: Adult as6 ED Course: 06:20 Patient arrived in ED. [email or web address] 06:32 Triage completed. as6 06:33 Arm band placed on. as6 07:05 Patient has correct armband on for positive identification. Placed in gown. Bed in low rs5 position. Call light in reach. Side rails up X2. 07:07 Mickey Porter MD is Attending Physician. meagan 07:21 Inserted saline lock: 20 gauge in left antecubital area, using aseptic technique. Blood rs5 collected. 07:27 Anders Barfield, ARTHUR is Primary Nurse. rs5 08:00 XRAY Chest (1 view) In Process Unspecified. EDMS 08:47 Inserted saline lock: 22 gauge in left forearm, using aseptic technique. Blood ds4 collected. 10:10 Carmelo Gonsales MD is Hospitalizing Provider. meagan 10:20 Type And Screen Sent. rs5 10:21 LAB Add On Sent. rs5 12:27 No provider procedures requiring assistance completed. rs5 12:40 Patient admitted, IV remains in place. rs5 Administered Medications: 07:37 Drug: NS 0.9% IV 1000 ml IV at 125 ml/hr continuous Route: IV; Rate: 125 ml/hr; Site: rs5 left antecubital; 08:01 Follow up: Response: No adverse reaction rs5 08:25 Not Given (Patient Refused): DuoNeb Nebulize (2.5 mg - 0.5 mg) 3 ml Nebulizer once rs5 09:19 Drug: Acetaminophen PO Liquid 160 mg PO once Route: PO; rs5 10:05 Follow up: Response: No adverse reaction; Pain is decreased rs5 09:19 Drug: Acetaminophen PO Liquid 160 mg PO once Route: PO; rs5 10:05 Follow up: Response: No adverse reaction rs5 09:40 Drug: vancoMYCIN IVPB 1 grams IVPB once over 2 hrs Route: IVPB; Infused Over: 2 hrs; rs5 Site: left forearm; 10:02 Follow up: Response: No adverse reaction rs5 09:40 Drug: Magnesium Sulfate IVPB 1 grams IVPB once over 1 hrs Route: IVPB; Infused Over: 1 rs5 hrs; Site: left forearm; 10:02 Follow up: Response: No adverse reaction rs5 10:19 Not Given (Patient Refused; Pt states "That medicine gives me diarrhea"a): [id number] rs5 mg IVP once; dilute with 10 mL 0.9% NaCl; give over 2 minutes 10:30 Drug: Levalbuterol Inhalation 1.25 mg Inhalation once Route: Inhalation; rs5 10:45 Follow up: Response: No adverse reaction rs5 10:41 Not Given (Pt reports she is allergicc): methylprednisolone2 mg/kg IVP once rs5 10:44 Drug: predniSONE PO 40 mg PO once Route: PO; rs5 11:30 Follow up: Response: No adverse reaction rs5 11:08 Drug: Doxycycline PO 100 mg PO once; NOT PO, administer IV Route: PO; rs5 12:30 Follow up: Response: No adverse reaction rs5 Medication: 12:27 VIS not applicable for this client. rs5 Outcome: 10:11 Decision to Hospitalize by Provider. meagan 12:40 Admitted to Med/surg accompanied by nurse, via stretcher, on monitor, with chart, rs5 Report called to ARTHUR Alcantar 12:40 Condition: stable rs5 12:40 Instructed on the need for admit, Demonstrated understanding of instructions, 12:49 Patient left the ED. rs5 Signatures: Dispatcher [employer] EDNE Mickey Porter MD MD cha Calderon, Audri, RN RN [email or web address] Perfecto Short Jennifer [email or web address] Slawson, Ashby, RN RN as6 Anders Barfield RN RN rs5 Corrections: (The following items were deleted from the chart) 08:27 08:26 Inserted saline lock: 20 gauge in left antecubital area, using aseptic technique. rs5 Blood collected. rs5 08:35 07:05 Respiratory: Airway is patent Trachea midline Respiratory effort is even, aa5 unlabored, Respiratory pattern is regular, symmetrical, Breath sounds are clear bilaterally. rs5 12:26 12:24 Reassessment: To bedside for blood administration. Blood transfusion started at rs5 50 ml/hr for first 15 min. Remained at bedside for first 15 min, no adverse reaction noted, rate increased to 225 ml/hr. rs5 19:32 11:49 BP 129 / 72; Pulse 80bpm; Resp 18bpm; Pulse Ox 98% RA; Temp 97.8F Temporal; rs5 rs5
--- NOTE | 2023-04-18 10:12 | EDPHYS ---
Physician Documentation [facility] Name: Sherrie Rojas Age: 52 yrs Sex: Female : 1970 Arrival Date: 04/18/2023 Time: 06:19 Bed 5 Private MD: JASMYNE Physician Mickey Porter HPI: 04/18 09:43 This 52 yrs old Female presents to ER via Wheelchair with complaints of meagan Breathing Difficulty. Historical: - Allergies: 06:32 Hand Channel Worker; as6 06:32 Iodine; as6 06:32 Latex; as6 06:32 sulfamethoxazole-trimethoprim; as6 06:32 Levofloxacin; as6 06:32 Silicone; as6 - PMHx: 06:32 Asthma; esophageal cancer; tracheostomy; as6 - PSHx: 06:32 Total abdominal hysterectomy; as6 - Immunization history:: Adult Immunizations up to date. - Social history:: Smoking status: Patient denies any tobacco usage or history of. ROS: 09:52 Constitutional: Negative for fever, chills, and weight loss, Eyes: Negative for injury, meagan pain, redness, and discharge, Neck: Negative for injury, pain, and swelling, Cardiovascular: Negative for chest pain, palpitations, and edema, Respiratory: Negative for shortness of breath, cough, wheezing, and pleuritic chest pain, Abdomen/GI: Negative for abdominal pain, nausea, vomiting, diarrhea, and constipation, Back: Negative for injury and pain, : Negative for injury, bleeding, discharge, and swelling, MS/Extremity: Negative for injury and deformity, Neuro: Negative for headache, weakness, numbness, tingling, and seizure, Psych: Negative for depression, anxiety, suicide ideation, homicidal ideation, and hallucinations, Allergy/Immunology: Negative for hives, rash, and allergies, Endocrine: Negative for neck swelling, polydipsia, polyuria, polyphagia, and marked weight changes, :52 ENT: Positive for difficulty swallowing, of the chin, sinus congestion, sore throat, Exam: :52 Constitutional: This is a well developed, well nourished patient who is awake, alert, meagan and in no acute distress. Head/Face: Normocephalic, atraumatic. Eyes: Pupils equal round and reactive to light, extra-ocular motions intact. Lids and lashes normal. Conjunctiva and sclera are non-icteric and not injected. Cornea within normal limits. Periorbital areas with no swelling, redness, or edema. Neck: Trachea midline, no thyromegaly or masses palpated, and no cervical lymphadenopathy. Supple, full range of motion without nuchal rigidity, or vertebral point tenderness. No Meningismus. Chest/axilla: Normal chest wall appearance and motion. Nontender with no deformity. No lesions are appreciated. Cardiovascular: Regular rate and rhythm with a normal S1 and S2. No gallops, murmurs, or rubs. Normal PMI, no JVD. No pulse deficits. Abdomen/GI: Soft, non-tender, with normal bowel sounds. No distension or tympany. No guarding or rebound. No evidence of tenderness throughout. Back: No spinal tenderness. No costovertebral tenderness. Full range of motion. Pelvic Exam: Normal external genitalia. Speculum exam with closed cervical os, no discharge or bleeding noted. Bimanual exam with normal adnexa, no adnexal or cervical motion tenderness. Normal uterus. Female : Normal external genitalia. MS/ Extremity: Pulses equal, no cyanosis. Neurovascular intact. Full, normal range of motion. Neuro: Awake and alert, GCS 15, oriented to person, place, time, and situation. Cranial nerves II-XII grossly intact. Motor strength 5/5 in all extremities. Sensory grossly intact. Cerebellar exam normal. Normal gait. Psych: Awake, alert, with orientation to person, place and time. Behavior, mood, and affect are within normal limits. 09:52 ENT: Posterior pharynx: no acute changes, Airway: normal, no evidence of obstruction, with trach, 09:52 ECG was reviewed by the Attending Physician. Vital Signs: 06:29 BP 125 / 70; Pulse 88; Resp 20 S; Temp 98.7(TE); Pulse Ox 94% on R/A; Weight 55.79 kg as6 (R); Height 5 ft. 3 in. (R); Pain 5/10; 08:32 BP 121 / 71; Pulse 80; Resp 17; Pulse Ox 99% ; rs5 11:49 BP 121 / 71; Pulse 80; Resp 17; Temp 97.8(TE); Pulse Ox 99% ; rs5 11:55 BP 129 / 72; Pulse 84; Resp 18; Temp 97.8(TE); Pulse Ox 98% on R/A; rs5 12:00 BP 127 / 69; Pulse 87; Resp 19; Temp 97.8(TE); Pulse Ox 98% on R/A; rs5 12:05 BP 133 / 70; Pulse 87; Resp 18; Temp 97.8(TE); Pulse Ox 99% ; rs5 12:20 BP 130 / 73; Pulse 88; Resp 19; Temp 97.7(TE); Pulse Ox 99% on R/A; rs5 06:29 Body Mass Index 21.79 (55.79 kg, 160.02 cm) as6 06:29 Pain Scale: Adult as6 MDM: 07:07 Patient medically screened. [facility] 10:07 Differential diagnosis: Anxiety Reaction asthma, Chronic Obstructive Pulmonary Disease meagan Myocardial Infarction reactive airway disease, Sepsis. Antibiotic administration: doxycycline and vanco. Immunization status: Influenza vaccine: within last 5 years. Data reviewed: vital signs, nurses notes, lab test result(s), CBC, electrolytes, hepatic panel, EKG, radiologic studies, plain films. Consideration of Admission/Observation Escalation of care including admission/observation considered. I considered the following discharge prescriptions or medication management in the emergency department Medications were administered in the Emergency Department. See MAR. Independent interpretation of the following test(s) in the Emergency Department EKG: See my EKG interpretation above. Test considered but Not performed: CT: no ct soft neck. Care significantly affected by the following chronic conditions: Cancer, asthma, trach, esophogeal cancer. Counseling: I had a detailed discussion with the patient and/or guardian regarding the historical points, exam findings, and any diagnostic results supporting the discharge/admit diagnosis, lab results, radiology results, the need for further work-up and treatment in the hospital. 04/18 07:09 Order name: Strep [facility] 04/18 07:09 Order name: Basic Metabolic Panel; Complete Time: : [facility] 04/18 07:09 Order name: CBC with Diff [facility] 04/18 07:09 Order name: LFT's; Complete Time: : [facility] 04/18 07:09 Order name: Magnesium; Complete Time: : [facility] 04/18 07:09 Order name: NT PRO-BNP; Complete Time: : [facility] 04/18 07:09 Order name: PT-INR; Complete Time: 09:23 [facility] 04/18 07:09 Order name: Troponin HS; Complete Time: 09:23 [facility] 04/18 07:09 Order name: Blood Culture Adult (2) [facility] 04/18 07:09 Order name: Lactate w/ 2H reflex if indic.; Complete Time: 09:23 [facility] 04/18 07:09 Order name: Flu; Complete Time: 09:23 [facility] 04/18 07:09 Order name: SARS RAPID; Complete Time: 09:23 [facility] 04/18 07:10 Order name: Sputum Culture [facility] 04/18 08:04 Order name: CBC Smear Scan [facility] 04/18 08:25 Order name: Throat Culture [facility] 04/18 09:25 Order name: Type And Screen [facility] 04/18 09:32 Order name: LAB Add On sp 04/18 09:37 Order name: Packed RBC Leukored [facility] 04/18 11:29 Order name: Magnesium [facility] 04/18 11:29 Order name: Phosphorus [facility] 04/18 11:29 Order name: Urinalysis w/ reflexes [facility] 04/18 11:29 Order name: Basic Metabolic Panel [facility] 04/18 11:29 Order name: Basic Metabolic Panel [facility] 04/18 11:29 Order name: CBC with Automated Diff [facility] 04/18 11:29 Order name: CBC with Automated Diff [facility] 04/18 07:09 Order name: XRAY Chest (1 view); Complete Time: 09:23 [facility] 04/18 11:28 Order name: Thorax Wo Con [facility] 04/18 07:09 Order name: EKG; Complete Time: 07:10 [facility] 04/18 11:17 Order name: CONS Physician Consult [facility] 04/18 07:09 Order name: Cardiac monitoring; Complete Time: 07:27 [facility] 04/18 07:09 Order name: EKG - Nurse/Tech; Complete Time: 07:27 [facility] 04/18 07:09 Order name: IV Saline Lock; Complete Time: 07:27 [facility] 04/18 07:09 Order name: Labs collected and sent; Complete Time: 07:27 [facility] 04/18 07:09 Order name: O2 Per Protocol; Complete Time: 07:20 [facility] 04/18 07:09 Order name: O2 Sat Monitoring; Complete Time: 07:20 [facility] 04/18 09:43 Order name: Misc. Order: Doxycycline 100 mg iv x1; Complete Time: 19:34 meagan EC:52 Rate is 87 beats/min. Rhythm is regular. QRS Burdine is Normal. QRS interval is normal. QT meagan interval is normal. No Q waves. T waves are Inverted in leads II, III, aVF, V6. No ST changes noted. Clinical impression: NSR w/ Non-specific ST/T Changes and No evidence of ischemia. Interpreted by me. Reviewed by me. Administered Medications: 07:37 Drug: NS 0.9% IV 1000 ml IV at 125 ml/hr continuous Route: IV; Rate: 125 ml/hr; Site: rs5 left antecubital; 08:01 Follow up: Response: No adverse reaction rs5 08:25 Not Given (Patient Refused): DuoNeb Nebulize (2.5 mg - 0.5 mg) 3 ml Nebulizer once rs5 09:19 Drug: Acetaminophen PO Liquid 160 mg PO once Route: PO; rs5 10:05 Follow up: Response: No adverse reaction; Pain is decreased rs5 09:19 Drug: Acetaminophen PO Liquid 160 mg PO once Route: PO; rs5 10:05 Follow up: Response: No adverse reaction rs5 09:40 Drug: vancoMYCIN IVPB 1 grams IVPB once over 2 hrs Route: IVPB; Infused Over: 2 hrs; rs5 Site: left forearm; 10:02 Follow up: Response: No adverse reaction rs5 09:40 Drug: Magnesium Sulfate IVPB 1 grams IVPB once over 1 hrs Route: IVPB; Infused Over: 1 rs5 hrs; Site: left forearm; 10:02 Follow up: Response: No adverse reaction rs5 10:19 Not Given (Patient Refused; Pt states "That medicine gives me diarrhea"a): [id number] rs5 mg IVP once; dilute with 10 mL 0.9% NaCl; give over 2 minutes 10:30 Drug: Levalbuterol Inhalation 1.25 mg Inhalation once Route: Inhalation; rs5 10:45 Follow up: Response: No adverse reaction rs5 10:41 Not Given (Pt reports she is allergicc): methylprednisolone2 mg/kg IVP once rs5 10:44 Drug: predniSONE PO 40 mg PO once Route: PO; rs5 11:30 Follow up: Response: No adverse reaction rs5 11:08 Drug: Doxycycline PO 100 mg PO once; NOT PO, administer IV Route: PO; rs5 12:30 Follow up: Response: No adverse reaction rs5 Disposition Summary: 04/18/23 10:11 Hospitalization Ordered Notes: Hospitalization Status: Inpatient Admission meagan Provider: Carmelo Gonsales cha Location: Telemetry/MedSurg (Inpatient) meagan Condition: Fair meagan Problem: new meaagn Symptoms: have improved meagan Bed/Room Type: Standard meagan Room Assignment: [id number](04/18/23 11:31) iw Diagnosis - Tracheostomy status meagan - Tracheostomy complications meagan - Mild persistent asthma meagan - Cellulitis and acute lymphangitis of face and neck meagan - Anemia in neoplastic disease meagan - Anemia, unspecified meagan Forms: - Medication Reconciliation Form meagan - SBAR form meagan - Leadership Thank You Letter meagan Signatures: Dispatcher [employer] EDMickey Douglas MD MD cha Williams, Irene, RN RN iw Lester Ramirez RN RN as6 Anders Barfield RN RN rs5 Corrections: (The following items were deleted from the chart) 11:31 10:11 meagan iw
[2023-04-18] MEDS ORDERED: METHYLPREDNISOLONE 125 MG INJ ONE (10:41)
[2023-04-18] MEDS ORDERED: DOXYCYCLINE 100 MG CAP PO ONE (10:41)
[2023-04-18] MEDS ORDERED: predniSONE 20 MG TAB ONE (10:46)
[2023-04-18] MEDS ORDERED: DOXYCYCLINE 100 MG in NA CHLORIDE 0.9% 100 ML IVPB ONE (11:00)
[2023-04-18] MEDS ORDERED: DOXYCYCLINE HYCLATE 100MG INJ ONE (11:06)
[2023-04-18] MEDS ORDERED: ACETAMINOPHEN 325 MG TABLET PO PRN (11:14)
[2023-04-18] MEDS ORDERED: HYDROCODONE/APAP 5/325 MG TAB PO PRN (11:14)
[2023-04-18] MEDS ORDERED: ONDANSETRON 4 MG/2 ML VIAL IV PRN (11:27)
--- NOTE | 2023-04-18 11:31 | P.HP ---
Certification for Inpatient Patient admitted to: Inpatient With expected LOS: >2 Midnights Patient will require the following post-hospital care: None Practitioner: I am a practitioner with admitting privileges, knowledge of patient current condition, hospital course, and medical plan of care. Services: Services provided to patient in accordance with Admission requirements found in Title 42 Section 412.3 of the Code of Federal Regulations Patient History Date of Service: 04/18/23 Reason for admission: SOB History of Present Illness: Patient is a 52-year-old female with past medical history significant for asthma, esophageal cancer, tracheostomy presence who presents with complaint of shortness of breath onset this morning. Patient reported that she had her tracheostomy changed at [facility] last week. Patient reported that since then she has been having increased redness and swelling around her neck and is concerned about possible tracheostomy site infection. Patient reported that there has been an increased thick mucus discharge from her tracheostomy. Patient denies any other signs or symptoms. Symptoms are aggravated or relieved by nothing. Patient decided to present to the hospital due to worsening symptoms. Allergies sulfamethoxazole [From Bactrim DS] Allergy (Intermediate, Verified 07/28/11 08:37) Rash trimethoprim [From Bactrim DS] Allergy (Intermediate, Verified 07/28/11 08:37) Rash cefepime Allergy (Verified 04/18/23 17:15) Shortness of breath chlorhexidine [From Hibiclens] Allergy (Verified 04/18/23 17:19) Itching/Hives/Rash erythromycin base Allergy (Verified 04/18/23 17:19) Shortness of breath hydromorphone [From Dilaudid] Allergy (Verified 04/18/23 17:19) Shortness of breath iodine Allergy (Verified 04/18/23 17:19) Itching/Hives/Rash ketorolac [From Toradol] Allergy (Verified 04/18/23 17:19) Shortness of breath latex Allergy (Verified 04/18/23 17:16) Itching/Hives/Rash methylprednisolone [From Solu-Medrol] Allergy (Verified 04/18/23 17:19) Shortness of breath morphine Allergy (Verified 04/18/23 17:19) Shortness of breath Penicillins Allergy (Verified 04/18/23 16:47) Shortness of breath Ringer's solution,lactated Allergy (Verified 04/18/23 17:19) Shortness of breath shellfish derived Allergy (Verified 04/18/23 17:15) Shortness of breath silicone Allergy (Verified 04/18/23 17:19) Itching/Hives/Rash sulfite Allergy (Verified 04/18/23 16:45) Shortness of breath tramadol Allergy (Verified 04/18/23 17:19) Shortness of breath levofloxacin [From Levaquin] Adverse Reaction (Verified 12/08/11 18:43) makes me crazy Home Medications: NK [No Home Meds] 04/18/23 - Past Medical/Surgical History -: Esophegeal Cancer -: Asthma -: Tracheostomy Placement - Family History Family History: Reviewed- Non-Contributory - Social History Smoking Status: Never smoker Alcohol use: No CD- Drugs: No Caffeine use: No Place of Residence: Home Review of Systems General: Unremarkable Eyes: Unremarkable ENT: Other (Neck swelling) Respiratory: Shortness of Breath Cardiovascular: Unremarkable Gastrointestinal: Unremarkable Genitourinary: Unremarkable Musculoskeletal: Unremarkable Integumentary: Other (Neck redness ) Neurological: Unremarkable Lymphatics: Unremarkable Physical Examination - Physical Exam General: Alert, Oriented x3, Cooperative, Mild distress HEENT: Atraumatic, PERRLA, Mucous membr. moist/pink, EOMI, Sclerae nonicteric Neck: Supple, 2+ carotid pulse no bruit, No LAD, Without JVD or thyroid abnormality Respiratory: Normal air movement, Diminished Cardiovascular: No edema, Regular rate/rhythm, Normal S1 S2 Capillary refill: <2 Seconds Gastrointestinal: Normal bowel sounds, Soft and benign, Non-distended, No tende rness Musculoskeletal: No clubbing, No swelling, No tenderness Integumentary: Tenderness/swelling, Erythema Neurological: Normal tone, Normal affect Lymphatics: No axilla or inguinal lymphadenopathy - Studies Laboratory Data (last 24 hrs) 04/18/23 04/18/23 04/18/23 07:30 07:30 07:30 WBC 12.20 H Hgb 7.3 L Hct 22.6 L Plt Count 714 H PT 14.7 H INR 1.34 Sodium 137 Potassium 3.5 BUN 10 Creatinine 0.63 Glucose 93 Magnesium 2.0 Total Bilirubin 0.5 AST 47 H ALT 11 L Alkaline Phosphatase 107 Microbiology Data (last 24 hrs): 11/20/23 07:30 Throat Group A Streptococcus Rapid Screen - Final 04/18/23 07:30 Nasopharnyx Influenza Type A Antigen Screen - Final 04/18/23 07:30 Nasopharnyx Influenza Type B Antigen Screen - Final Assessment and Plan - Plan --Neck cellulitis\\suspected tracheostomy Site infection. Blood and throat cultures pending. Patient placed on antibiotics. Infectious disease MD, ENT MD and supply clerk consulted. We will await further recommendations. --Dyspnea. CT chest indicates "Tree-in-bud opacities right lung may indicate aspiration pneumonitis". Continue antibiotics. Sports Therapist on board. Will await further recommendations. --History of esophageal cancer. CT chest indicates "Right upper lobe mass probably neoplasm" with possible hepatic metastases. Patient follows up with an outpatient oncologist. Continue supportive care. --Moderate persistent asthma with acute exacerbation. Continue nebulizer treatment with albuterol and Atrovent. --Tracheostomy presence. Trach care per respiratory therapist. Sports Therapist on board. Continue supportive care. ---Leukocytosis. Blood cultures pending. Continue antibiotics --Anemia chronic disease. Likely compounded from periodic bleeding from tracheostomy site. H&H stable. We will continue to monitor hemoglobin and transfuse if less than 7.0. -- DVT prophylaxis with SCDs. Discharge Plan: Home Plan to discharge in: Greater than 2 days - Advance Directives Does patient have a Living Will: No Does patient have a Durable POA for Healthcare: No - Code Status/Comfort Care Code Status Assessed: Yes Physician Review: Patient Assessed, Agree with Above Assessment and Plan Critical Care: No
[2023-04-18] MEDS ORDERED: CEFEPIME 2 GM in NA CHLORIDE 0.9% 100 ML IV SCH ×2 (12:00→17:00)
[2023-04-18] MEDS ORDERED: VANCOMYCIN 1 GM in NA CHLORIDE 0.9% 250 ML IVPB SCH (13:00)
--- NOTE | 2023-04-18 13:07 | P.CNS ---
Date of Consult: 04/18/23 Consultation for tracheotomy site cellulitis from Dr Porter, ER HPI: Patient remotely known to my clinic for evaluation of SOB and swallowing in Spring 2021 with referral to [facility] for concern of tracheal tumor. 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 At that time, imaging showed approximately 3 x 3 x 5cm tumor with consider for invasion to the tracheal-esophgeal libertarian wall. She had placement of tracheal stent around November 2021 at [facility] and there was discussion for treatment options of XRT and Chemo but concerns for risk of development of T-E fistula due to extent of tumor and she was lost to further care from ENT at that time. She reports that a trach was placed at [facility] around December 2021 and that she has undergone trach tube changes in the office with Dr Rojas weaver about every 3 months including last change about 2 weeks ago. Due to concerns for chemotherapy tolerance due to extensive drug allergies and sensitivities, she never received chemotherapy. She was told she had 1-3 months to leave but again due to drug allergies, never engaged with hospice since she is intolerant of pain medications. She is self sufficient with trach care/suctioning at home. Exam: NAD. Difficult voicing. Massive tumor of neck with ulceration at the inferior aspect of the trachotomy tube. No bleeding noted. Erythema and skin changes of the neck felt to be tumor effect more than infection based on global appearance. Data: CT chest without contrast shows extensive tumor of the neck with in-place tracheostomy tube going through the tumor with some tracheal stenosis distal to the tip of the trach tube on saggital images. 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 No acute interventions. Agree with palliative care.
--- NOTE | 2023-04-18 13:13 | RAD REPORT ---
EXAM DESCRIPTION: CT - Thorax Con - 04/18/2023 11:37 am CLINICAL HISTORY: sob COMPARISON: none TECHNIQUE: Computed axial tomography of the chest was obtained. Contrast was not requested. All CT scans are performed using dose optimization technique as appropriate and may include automated exposure control or mA/KV adjustment according to patient size. FINDINGS: The evaluation of mediastinum, whit and vessels is limited secondary to lack of IV contras t administration. Moderate tree-in-bud opacities right lung. Medial right upper lobe mass containing cavity. 1 centimet er right middle lobe nodule. Mild medial right lower lobe opacities. Right middle lobe atelectasis Fullness in the region of the upper esophagus incompletely evaluated on this exam Marked lower neck/superior mediastinal/anterior and middle mediastinal lymphadenopathy Multiple hepatic lesions A pleural effusion is not present. A small to moderate pericardial effusion A tracheostomy tube is in place. Prominent soft tissue upper medial right abdomen incompletely evaluated on this exam IMPRESSION: Right upper lobe mass probably neoplasm. Lower neck/superior, anterior and middle mediastinal lymphadenopathy Hepatic lesions likely metastases Tree-in-bud opacities right lung may indicate aspiration pneumonitis
[2023-04-18] MEDS: ALBUTEROL 2.5 MG/3 ML NEB SOL NEB SCH ×2 (14:06→20:00)
[2023-04-18] MEDS: IPRATROPIUM BROM 0.5MG/2.5ML NEB SCH ×2 (14:06→20:00)
[2023-04-18 14:54] VITALS: BMI 21.7
[2023-04-18 15:26] LABS: Magnesium 2.2 mg/dL (1.6-2.4); Phosphorus 2.7 mg/dL (2.5-4.9)
[2023-04-18] MEDS ORDERED: PNEUMOCOCCAL VACCINE 0.5 ML IMVAC ONE (16:00)
[2023-04-18] MEDS: AZTREONAM 2 GM in NA CHLORIDE 0.9% 100 ML IV SCH (20:23)
[2023-04-18] MEDS: VANCOMYCIN 1 GM in NA CHLORIDE 0.9% 250 ML IVPB SCH (20:26)
[2023-04-18 20:37] LABS: Hematocrit 27.8 % (36.0-45.0)
[2023-04-18] MEDS: ACETAMINOPHEN 160 MG/5 ML UCUP PO PRN (20:45)
[2023-04-19 00:32] LABS: Specific Gravity 1.026 (1.005-1.030); Urine Bacteria None Seen /HPF (<20); Urine Bilirubin NEGATIVE (Negative); Urine Blood Negative (Negative); Urine Clarity Extremely Turbid (Clear); Urine Color Yellow (Yellow); Urine Glucose NEGATIVE (Negative); Urine Mucus Slight /HPF (None Seen); Urine Protein TRACE (Negative); Urine RBC <5 /HPF (None Seen); Urine Urobilinogen Normal (Normal); Urine pH 5.5 (5.0-7.0)
[2023-04-19] MEDS: IPRATROPIUM BROM 0.5MG/2.5ML NEB SCH ×4 (01:15→19:02)
[2023-04-19] MEDS: ALBUTEROL 2.5 MG/3 ML NEB SOL NEB SCH ×4 (01:16→19:02)
[2023-04-19] MEDS: AZTREONAM 2 GM in NA CHLORIDE 0.9% 100 ML IV SCH ×3 (02:26→16:42)
[2023-04-19] MEDS: ACETAMINOPHEN 160 MG/5 ML UCUP PO PRN ×2 (05:00→11:43)
--- NOTE | 2023-04-19 09:11 | P.CNS ---
Date of Consult: 04/19/23 Reason for Consult: Neck cellulitis/infected trach site Chief Complaint: SOB History of Present Illness: Patient is a 52-year-old female with a past medical history of esophageal cancer SP tracheostomy and asthma who presented to the ED with complaints of shortness of breath. Patient reports that she had a tracheostomy change at [facility] last week and since then has been having increased redness and swelling around her neck and was concerned for possible infection. Infectious disease was consulted. Allergies sulfamethoxazole [From Bactrim DS] Allergy (Intermediate, Verified 07/28/11 08:37) Rash trimethoprim [From Bactrim DS] Allergy (Intermediate, Verified 07/28/11 08:37) Rash cefepime Allergy (Verified 04/18/23 17:15) Shortness of breath chlorhexidine [From Hibiclens] Allergy (Verified 04/18/23 17:19) Itching/Hives/Rash erythromycin base Allergy (Verified 04/18/23 17:19) Shortness of breath hydromorphone [From Dilaudid] Allergy (Verified 04/18/23 17:19) Shortness of breath iodine Allergy (Verified 04/18/23 17:19) Itching/Hives/Rash ketorolac [From Toradol] Allergy (Verified 04/18/23 17:19) Shortness of breath latex Allergy (Verified 04/18/23 17:16) Itching/Hives/Rash methylprednisolone [From Solu-Medrol] Allergy (Verified 04/18/23 17:19) Shortness of breath morphine Allergy (Verified 04/18/23 17:19) Shortness of breath Penicillins Allergy (Verified 04/18/23 16:47) Shortness of breath Ringer's solution,lactated Allergy (Verified 04/18/23 17:19) Shortness of breath shellfish derived Allergy (Verified 04/18/23 17:15) Shortness of breath silicone Allergy (Verified 04/18/23 17:19) Itching/Hives/Rash sulfite Allergy (Verified 04/18/23 16:45) Shortness of breath tramadol Allergy (Verified 04/18/23 17:19) Shortness of breath levofloxacin [From Levaquin] Adverse Reaction (Verified 12/08/11 18:43) makes me crazy Home medications list reviewed: Yes Home Medications: NK [No Home Meds] 04/18/23 - Past Medical/Surgical History -: Esophegeal Cancer -: Asthma -: Tracheostomy Placement -: hyst - Social History Alcohol use: No CD- Drugs: No Caffeine use: No Place of Residence: Home Review of Systems 10-point ROS is otherwise unremarkable General: Weakness Respiratory: Other (trach site with purulent drainage) Physical Examination Temp Pulse Resp BP Pulse Ox 97.0 F 84 16 114/76 100 04/19/23 04:00 04/19/23 04:00 04/19/23 04:00 04/19/23 04:00 04/19/23 04:00 General: Alert, In no apparent distress, Oriented x3 HEENT: Atraumatic, Normocephalic Neck: Other (tracheostomy. anterior neck mass/cancer ) Respiratory: Clear to auscultation bilaterally, Other (tracheostomy. room air) Cardiovascular: Regular rate/rhythm Gastrointestinal: Normal bowel sounds, Soft and benign Musculoskeletal: Swelling (right arm) Integumentary: Other (anterior neck mass/cancer. tracheostomy with some drainage surrounding site and erythema. ) Neurological: Normal affect Laboratory data -Reviewed Microbiology data -Reviewed Imagings Data: -Reviewed Conclusions/Impression: Problem list Concern for trach site infection Hx esophageal cancer s/p trach Asthma Anemia of chronic disease Esophageal cancer s/p tracheostomy Concern for infection surrounding trach site - CT chest 04/18: ": Right upper lobe mass probably neoplasm. Lower neck/superior, anterior and middle mediastinal lymphadenopathy. Hepatic lesions likely metastases. Tree-in-bud opacities right lung may indicate aspiration pneumonitis." -Blood cultures 04/18: No growth at 24 hours -Throat culture 04/18: Normal upper respiratory marietta grown -Sputum culture 04/18: Pending - Currently on Aztreonam and Vancomycin - Leukocytosis 13.2. Afebrile. Recommendations - Continue current antibiotics for now. - Will follow up with sputum culture results and adjust antibiotics as appropriate. - Monitor WBC and fever trends - Trach care - Follow up with oncologist as outpatient Case discussed with Kenya Mccarthy
[2023-04-19 09:31] LABS: Absolute Lymphocytes (CBC) 2.2 K/uL (0.7-4.9); Hematocrit 30.9 % (36.0-45.0); Lymphocytes % 16.4 % (15.3-44.8); MCV 82.4 fL (80-100); MPV 6.3 fL (7.6-11.3); Platelets 647 thou/uL (152-406); RBC Red Blood Cell Count 3.74 M/uL (3.86-4.86)
[2023-04-19 09:49] LABS: Potassium 3.4 mEq/L (3.5-5.1)
[2023-04-19] MEDS: VANCOMYCIN 1 GM in NA CHLORIDE 0.9% 250 ML IVPB SCH ×2 (10:16→21:00)
--- NOTE | 2023-04-19 12:27 | P.PN ---
Subjective Date of Service: 04/19/23 Chief Complaint: SOB Subjective: No new changes, Improving Physical Examination - Vital Signs Temperature: 97.6 F Blood Pressure: 141/74 Pulse: 84 Respirations: 18 Pulse Ox (%): 96 - Physical Exam General: Alert, Oriented x3 HEENT: Atraumatic, Normocephalic Neck: Supple Respiratory: Normal air movement Cardiovascular: Regular rate/rhythm, Normal S1 S2 Gastrointestinal: Soft and benign Musculoskeletal: No swelling Neurological: Normal speech, Normal strength at 5/5 x4 extr - Studies Microbiology Data (last 24 hrs): 04/18/23 08:21 Blood - Blood Anaerobic Blood Culture - Final 04/18/23 07:30 Throat Group A Streptococcus Rapid Screen - Final 04/18/23 08:08 Sputum Sputum Gram Stain - Final 04/18/23 07:30 Nasopharnyx Influenza Type A Antigen Screen - Final 04/18/23 07:30 Nasopharnyx Influenza Type B Antigen Screen - Final Assessment And Plan - Plan Assessment and Plan - Plan --Neck cellulitis\\suspected tracheostomy Site infection. Blood and throat cultures reviewed. Empiric antibiotic with aztreonam, vancomycin continued. Blood cultures growing gram-negative rods. --Dyspnea. CT chest indicates "Tree-in-bud opacities right lung may indicate aspiration pneumonitis". Continue antibiotics. Field Representatives Director on board. Will await further recommendations. Oral prednisone started for additional anti- inflammatory properties. --History of esophageal cancer. CT chest indicates "Right upper lobe mass probably neoplasm" with possible hepatic metastases. Patient follows up with an outpatient oncologist. Continue supportive care. --Moderate persistent asthma with acute exacerbation. Continue nebulizer treatment with albuterol and Atrovent. --Tracheostomy presence. Trach care per respiratory therapist. Field Representatives Director on board. Continue supportive care. ---Leukocytosis. Blood cultures gram-negative renée, pending finalization. Continue antibiotic with aztreonam. --Anemia chronic disease. Likely compounded from periodic bleeding from tracheostomy site. H&H stable. We will continue to monitor hemoglobin and transfuse if less than 7.0. -- DVT prophylaxis with SCDs. Discharge Plan: Home. Plan to discharge in: Greater than 2 days Physician Review: Patient Assessed, Agree with Above Assessment and Plan
--- NOTE | 2023-04-19 12:52 | P.CNS ---
Date of Consult: 04/19/23 Reason for Consult: Respiratory distress patient has a trach Chief Complaint: SOB History of Present Illness: Patient is 52 years of age with a history of esophageal cancer is post tracheostomy presented with shortness of breath apparently this occurred after change of tracheostomy having some copious secretions not doing better. Advanced stage esophageal cancer or increasing redness or swelling around her neck ability of trach site infection also takes doxycycline doing somewhat better today Allergies sulfamethoxazole [From Bactrim DS] Allergy (Intermediate, Verified 07/28/11 08:37) Rash trimethoprim [From Bactrim DS] Allergy (Intermediate, Verified 07/28/11 08:37) Rash cefepime Allergy (Verified 04/18/23 17:15) Shortness of breath chlorhexidine [From Hibiclens] Allergy (Verified 04/18/23 17:19) Itching/Hives/Rash erythromycin base Allergy (Verified 04/18/23 17:19) Shortness of breath hydromorphone [From Dilaudid] Allergy (Verified 04/18/23 17:19) Shortness of breath iodine Allergy (Verified 04/18/23 17:19) Itching/Hives/Rash ketorolac [From Toradol] Allergy (Verified 04/18/23 17:19) Shortness of breath latex Allergy (Verified 04/18/23 17:16) Itching/Hives/Rash methylprednisolone [From Solu-Medrol] Allergy (Verified 04/18/23 17:19) Shortness of breath morphine Allergy (Verified 04/18/23 17:19) Shortness of breath Penicillins Allergy (Verified 04/18/23 16:47) Shortness of breath Ringer's solution,lactated Allergy (Verified 04/18/23 17:19) Shortness of breath shellfish derived Allergy (Verified 04/18/23 17:15) Shortness of breath silicone Allergy (Verified 04/18/23 17:19) Itching/Hives/Rash sulfite Allergy (Verified 04/18/23 16:45) Shortness of breath tramadol Allergy (Verified 04/18/23 17:19) Shortness of breath levofloxacin [From Levaquin] Adverse Reaction (Verified 12/08/11 18:43) makes me crazy Home Medications: NK [No Home Meds] 04/18/23 - Past Medical/Surgical History -: Esophegeal Cancer -: Asthma -: Tracheostomy Placement -: hyst - Social History Alcohol use: No CD- Drugs: No Caffeine use: No Place of Residence: Home Review of Systems General: Weakness Respiratory: Cough, Shortness of Breath Physical Examination Temp Pulse Resp BP Pulse Ox 97.6 F 84 18 141/74 H 96 04/19/23 12:27 04/19/23 12:27 04/19/23 12:27 04/19/23 12:27 04/19/23 12:27 General: Alert, Oriented x3 Neck: Other (Patient has obvious tumor that is extending into her neck with a tracheostomy) Respiratory: Clear to auscultation bilaterally, Diminished Cardiovascular: No edema, Regular rate/rhythm, Normal S1 S2 - Problems (1) Respiratory distress Current Visit: Yes Status: Acute Plan: Patient is 52 years of age s/p tracheostomy due to advanced esophageal cancer follow-up distress shortly after changing her tracheostomy tube which is done by a thoracic surgeon coughing some copious amount of phlegm is doing a little better very extensive esophageal cancer visible around her neck area White count is mildly elevated fletcher and has no fever vital signs stable patient is allergic to multiple antibiotics including levofloxacin add p.o. doxycycline CT scan reviewed she is got very extensive cancer extending into her neck enlargement of the mediastinum with some right lower lobe atelectasis vital signs are all st able plan for discharge continue with doxycycline no obvious evidence of sepsis prognosis poor
[2023-04-19] MEDS ORDERED: METHYLPREDNISOLONE 40 MG INJ IV SCH (13:00)
[2023-04-19] MEDS: predniSONE 20 MG TAB PO SCH ×2 (13:14→22:26)
[2023-04-19] MEDS ORDERED: DOXYCYCLINE 100 MG CAP PO SCH (21:00)
[2023-04-19] MEDS: DOXYCYCLINE 100 MG in NA CHLORIDE 0.9% 100 ML IVPB SCH (22:54)
[2023-04-20] MEDS: AZTREONAM 2 GM in NA CHLORIDE 0.9% 100 ML IV SCH ×3 (01:00→17:04)
[2023-04-20] MEDS: IPRATROPIUM BROM 0.5MG/2.5ML NEB SCH ×4 (01:32→19:49)
[2023-04-20] MEDS: ALBUTEROL 2.5 MG/3 ML NEB SOL NEB SCH ×4 (01:32→19:49)
[2023-04-20] MEDS: DOXYCYCLINE 100 MG in NA CHLORIDE 0.9% 100 ML IVPB SCH ×3 (09:00→21:13)
--- NOTE | 2023-04-20 09:02 | P.PN ---
Date of Service: 04/20/23 Chief Complaint: SOB Subjective: Patient sitting in wheelchair eating lunch. Patient reports improvement in neck swelling today. No new or worsening complaints at this time. Physical Examination Temp Pulse Resp BP Pulse Ox 97.2 F 74 18 133/74 95 04/20/23 04:00 04/20/23 04:00 04/20/23 04:00 04/20/23 04:00 04/20/23 04:00 General: Alert, In no apparent distress, Oriented x3 HEENT: Atraumatic, Normocephalic Neck: tracheostomy. Anterior neck tumor Respiratory: Diminished. Tracheostomy. On room air Cardiovascular: Regular rate/rhythm Gastrointestinal: Normal bowel sounds, Soft and benign Msk/Integumentary: Swelling right arm and right breast. Anterior neck tumor Laboratory data -Reviewed Microbiology data -Reviewed Imagings Data: -Reviewed Microbiology Data: Reviewed Assessment and Plan Problem list Concern for trach site infection Hx esophageal cancer s/p trach Asthma Anemia of chronic disease Esophageal cancer s/p tracheostomy Concern for infection surrounding trach site - CT chest 04/18: ": Right upper lobe mass probably neoplasm. Lower neck/superior, anterior and middle mediastinal lymphadenopathy. Hepatic lesions likely metastases. Tree-in-bud opacities right lung may indicate aspiration pneumonitis." -Blood cultures 04/18: No growth at 24 hours -Throat culture 04/18: Normal upper respiratory marietta grown -Sputum culture 04/18: normal quantity of upper respiratory marietta grown - Currently on Aztreonam and Doxycycline. - Leukocytosis 13.2. Afebrile. Recommendations Blood, sputum and throat cultures all negative. - Discontinue Vancomycin and Aztreonam. Suspected Neck Cellulitis: Continue with Doxycycline for 14 days (04/19 to 05/03). Switch to PO as tolerated. - Monitor WBC and fever trends - Trach care - Follow up with oncologist as outpatient in 1-2 weeks. Case discussed with Kenya Mccarthy
[2023-04-20] MEDS: predniSONE 20 MG TAB PO SCH ×2 (09:47→21:12)
[2023-04-20] MEDS ORDERED: DOXYCYCLINE 100 MG in NA CHLORIDE 0.9% 100 ML IVPB SCH (10:00)
[2023-04-20] MEDS ORDERED: VANCOMYCIN 1.25 GM in NA CHLORIDE 0.9% 250 ML IVPB SCH (10:00)
--- NOTE | 2023-04-20 14:37 | P.PN ---
Subjective Date of Service: 04/20/23 Chief Complaint: SOB Subjective: No new changes, Improving Physical Examination - Vital Signs Temperature: 97.3 F Blood Pressure: 122/75 Pulse: 99 Respirations: 19 Pulse Ox (%): 88 - Physical Exam General: Alert, Oriented x3 HEENT: Atraumatic, Normocephalic Neck: Supple, Other (tumor redness noted.) Respiratory: Normal air movement Cardiovascular: Normal pulses, Regular rate/rhythm Gastrointestinal: Soft and benign Musculoskeletal: No swelling Integumentary: No significant lesion - Studies Microbiology Data (last 24 hrs): 04/18/23 08:08 Sputum Sputum Gram Stain - Final 04/18/23 08:08 Sputum Culture & Sensitivity - Final NORMAL QUANTITY OF UPPER RESPIRATORY REN GROWN. 04/18/23 07:30 Throat Group A Streptococcus Rapid Screen - Final 04/18/23 07:30 Throat Culture & Sensitivity - Final NORMAL UPPER RESPIRATORY REN GROWN. Assessment And Plan - Plan Assessment and Plan - Plan --Neck cellulitis\\suspected tracheostomy Site infection. Blood and throat cultures reviewed. Empiric antibiotic with aztreonam, and doxycycline continued. Preliminary blood cultures growing gram-negative rods. final cultures noted. --Dyspnea. CT chest indicates "Tree-in-bud opacities right lung may indicate aspiration pneumonitis". Continue antibiotics. Flight Kitchen Manager on board. Will await further recommendations. Oral prednisone started for additional anti- inflammatory properties. --History of esophageal cancer. CT chest indicates "Right upper lobe mass probably neoplasm" with possible hepatic metastases. Patient follows up with an outpatient oncologist. Continue supportive care. ENT recs noted. No further plan of care as per specialist. --Moderate persistent asthma with acute exacerbation. Continue nebulizer treatment with albuterol and Atrovent. pt prefers her own home meds due to significant reaction to mul;tiple allergens. --Tracheostomy presence. Trach care per respiratory therapist. Flight Kitchen Manager on board. Continue supportive care. ---Leukocytosis. Blood cultures gram-negative renée, pending finalization. Continue antibiotic with aztreonam. --Anemia chronic disease. Likely compounded from periodic bleeding from tracheostomy site. H&H stable. We will continue to monitor hemoglobin and transfuse if less than 7.0. -- DVT prophylaxis with SCDs. Discharge Plan: Home. Plan to discharge in: Greater than 2 days Physician Review: Patient Assessed, Agree with Above Assessment and Plan
[2023-04-20] MEDS: ACETAMINOPHEN 160 MG/5 ML UCUP PO PRN (15:41)
--- NOTE | 2023-04-20 16:58 | EKG ---
Test Date: 2023-04-18 Test Time: 07:18:39 Supervisor Chemical: [employer]AMA MEASUREMENT RESULTS: Intervals: Rate: 87 MD: 134 QRSD: 78 QT: 314 QTc: 377 [place]: P: 68 MD: 134 QRS: 48 T: 243 INTERPRETIVE STATEMENTS: Normal sinus rhythm Low voltage QRS T wave abnormality, consider inferior ischemia Abnormal ECG No previous ECG available for comparison Electronically Signed On 04-20-23 16:52:31 BURGLARY INVESTIGATOR by Nicholas Peace
[2023-04-21] MEDS: AZTREONAM 2 GM in NA CHLORIDE 0.9% 100 ML IV SCH ×3 (01:33→17:21)
[2023-04-21] MEDS: IPRATROPIUM BROM 0.5MG/2.5ML NEB SCH ×4 (01:43→20:00)
[2023-04-21] MEDS: ALBUTEROL 2.5 MG/3 ML NEB SOL NEB SCH ×4 (01:43→20:00)
--- NOTE | 2023-04-21 08:12 | P.PN ---
Date of Service: 04/21/23 Chief Complaint: SOB Subjective: Patient eating breakfast. Improving. Denies any new or worsening complaints. Physical Examination Temp Pulse Resp BP Pulse Ox 97.3 F 80 18 138/77 96 04/21/23 04:00 04/21/23 04:00 04/21/23 04:00 04/21/23 04:00 04/21/23 04:00 General: Alert, In no apparent distress, Oriented x3 HEENT: Atraumatic, Normocephalic Neck: tracheostomy. Anterior neck tumor Respiratory: Diminished. Tracheostomy. On room air Cardiovascular: Regular rate/rhythm Gastrointestinal: Normal bowel sounds, Soft and benign Msk/Integumentary: Swelling right arm and right breast. Anterior neck tumor Laboratory data -Reviewed Microbiology data -Reviewed Imagings Data: -Reviewed Microbiology Data: Reviewed Assessment and Plan Problem list Concern for trach site infection Hx esophageal cancer s/p trach Asthma Anemia of chronic disease Esophageal cancer s/p tracheostomy Concern for infection surrounding trach site - CT chest 04/18: ": Right upper lobe mass probably neoplasm. Lower neck/superior, anterior and middle mediastinal lymphadenopathy. Hepatic lesions likely metastases. Tree-in-bud opacities right lung may indicate aspiration pneumonitis." -Blood cultures 04/18: No growth at 24 hours -Throat culture 04/18: Normal upper respiratory marietta grown -Sputum culture 04/18: normal quantity of upper respiratory marietta grown - Currently on Aztreonam and Doxycycline. - Leukocytosis 13.2 WBC pending for today. Afebrile. Recommendations - Suspected Neck Cellulitis: Continue with Doxycycline for 14 days (04/19 to 05/03). Switch to PO as tolerated. *note it needs to be the capsule formulation so patient is able to mix it with her food* - Blood, sputum and throat cultures all negative. - Discontinue Aztreonam. - Monitor WBC and fever trends - Trach care - Follow up with oncologist as outpatient in 1-2 weeks. Case discussed with Kenya Mccarthy
[2023-04-21] MEDS: predniSONE 20 MG TAB PO SCH ×2 (09:03→21:20)
[2023-04-21] MEDS: DOXYCYCLINE 100 MG in NA CHLORIDE 0.9% 100 ML IVPB SCH ×2 (10:10→21:20)
--- NOTE | 2023-04-21 13:50 | P.PN ---
Subjective Date of Service: 04/21/23 Chief Complaint: SOB Subjective: No new changes, Improving Physical Examination - Vital Signs Temperature: 97.7 F Blood Pressure: 153/81 Pulse: 90 Respirations: 20 Pulse Ox (%): 91 - Physical Exam General: Alert HEENT: Atraumatic Neck: Supple Respiratory: Normal air movement Cardiovascular: Regular rate/rhythm, Normal S1 S2 Gastrointestinal: Soft and benign Musculoskeletal: No swelling Neurological: Normal speech Assessment And Plan - Plan Assessment and Plan - Plan --Neck cellulitis\\suspected tracheostomy Site infection. Blood and throat cultures reviewed. Empiric antibiotic with aztreonam, and doxycycline continued. Preliminary blood cultures growing gram-negative rods. final cultures noted. --Dyspnea. CT chest indicates "Tree-in-bud opacities right lung may indicate aspiration pneumonitis". Continue antibiotics. Electronic Design Engineer on board. Will await further recommendations. Oral prednisone started for additional anti- inflammatory properties. --History of esophageal cancer. CT chest indicates "Right upper lobe mass probably neoplasm" with possible hepatic metastases. Patient follows up with an outpatient oncologist. Continue supportive care. ENT recs noted. No further plan of care as per specialist. --Moderate persistent asthma with acute exacerbation. Continue nebulizer treatment with albuterol and Atrovent. pt prefers her own home meds due to significant reaction to mul;tiple allergens. --Tracheostomy presence. Trach care per respiratory therapist. Electronic Design Engineer on board. Continue supportive care. ---Leukocytosis. Blood cultures gram-negative renée, pending finalization. Continue antibiotic with aztreonam. --Anemia chronic disease. Likely compounded from periodic bleeding from tracheostomy site. H&H stable. We will continue to monitor hemoglobin and transfuse if less than 7.0. -- DVT prophylaxis with SCDs. Discharge Plan: Home. Plan to discharge in: Greater than 2 days Physician Review: Patient Assessed, Agree with Above Assessment and Plan
[2023-04-21 16:36] LABS: Absolute Lymphocytes (CBC) 1.5 K/uL (0.7-4.9); Hematocrit 29.6 % (36.0-45.0); Lymphocytes % 10.5 % (15.3-44.8); MCV 82.4 fL (80-100); MPV 6.3 fL (7.6-11.3); Platelets 642 thou/uL (152-406); RBC Red Blood Cell Count 3.59 M/uL (3.86-4.86)
[2023-04-21 16:46] LABS: Potassium 3.8 mEq/L (3.5-5.1)
[2023-04-22] MEDS: AZTREONAM 2 GM in NA CHLORIDE 0.9% 100 ML IV SCH ×2 (01:08→09:27)
[2023-04-22] MEDS: ALBUTEROL 2.5 MG/3 ML NEB SOL NEB SCH ×3 (02:00→14:00)
[2023-04-22] MEDS: IPRATROPIUM BROM 0.5MG/2.5ML NEB SCH ×3 (02:00→14:00)
--- NOTE | 2023-04-22 08:40 | P.PN ---
Date of Service: 04/22/23 Chief Complaint: SOB Subjective: Patient sitting in wheelchair eating breakfast. No new or worsening complaints at this time. No acute events reported overnight. Patient states she is ready to go home. Physical Examination Temp Pulse Resp BP Pulse Ox 97.8 F 82 18 148/79 H 96 04/22/23 04:00 04/22/23 04:00 04/22/23 04:00 04/22/23 04:00 04/22/23 04:00 General: Alert, In no apparent distress, Oriented x3 HEENT: Atraumatic, Normocephalic Neck: tracheostomy. Anterior neck tumor Respiratory: Diminished. Tracheostomy. On room air Cardiovascular: Regular rate/rhythm. BLE edema. Gastrointestinal: Normal bowel sounds, Soft and benign Msk/Integumentary: Swelling right arm and right breast. Anterior neck tumor Laboratory data -Reviewed Microbiology data -Reviewed Imagings Data: -Reviewed Microbiology Data: Reviewed Assessment and Plan Problem list Concern for trach site infection Hx esophageal cancer s/p trach Asthma Anemia of chronic disease Esophageal cancer s/p tracheostomy Concern for infection surrounding trach site - CT chest 04/18: ": Right upper lobe mass probably neoplasm. Lower neck/superior, anterior and middle mediastinal lymphadenopathy. Hepatic lesions likely metastases. Tree-in-bud opacities right lung may indicate aspiration pneumonitis." -Blood cultures 04/18: No growth at 24 hours -Throat culture 04/18: Normal upper respiratory marietta grown -Sputum culture 04/18: normal quantity of upper respiratory marietta grown - Currently on Aztreonam and Doxycycline. - Afebrile. Recommendations - Suspected Neck Cellulitis: Continue with Doxycycline for 14 days (04/19 to 05/03). Switch to PO as tolerated. *note it needs to be the capsule formulation so patient is able to mix it with her food* - Blood, sputum and throat cultures all negative. - Discontinue Aztreonam. - Monitor WBC and fever trends - Trach care - Follow up with PCP as outpatient in 1-2 weeks. Case discussed with Kenya Mccarthy
[2023-04-22] MEDS: predniSONE 20 MG TAB PO SCH (09:26)
[2023-04-22] MEDS: DOXYCYCLINE 100 MG in NA CHLORIDE 0.9% 100 ML IVPB SCH (11:29)
[2023-04-22 12:37] VITALS: O2SAT 93
[2023-04-22 12:45] VITALS: BP 153/81; TEMP 97.7
--- NOTE | 2023-04-22 12:45 | P.DS ---
Admission Date: 04/18/23 Discharge Date: 04/22/23 Disposition: ROUTINE DISCHARGE Discharge Condition: GOOD Reason for Admission: SOB Brief History of Present Illness: Patient is a 52-year-old female with past medical history significant for asthma, esophageal cancer, tracheostomy presence who presents with complaint of shortness of breath onset this morning. Patient reported that she had her tracheostomy changed at [facility] last week. Patient reported that since then she has been having increased redness and swelling around her neck and is concerned about possible tracheostomy site infection. Patient reported that there has been an increased thick mucus discharge from her tracheostomy. Patient denies any other signs or symptoms. Symptoms are aggravated or relieved by nothing. Patient decided to present to the hospital due to worsening symptoms. Hospital Course: She was evaluated by ENT surgeon and was deemed to be having no acute need for intervention. She was started on broad-spectrum antibiotic and had blood cultures taken. ID reviewed patient labs clinical situation and recommended doxycycline to complete 14-day therapy. She was also started on steroid therapy to assist with management of inflammation among other things. She was stabilized significantly and was deemed stable for discharge home to continue with oral doxycycline to complete 14-day therapy. She was also given a dose of prednisone for the next 7 days. Vital Signs/Physical Exam: Temp Pulse Resp BP Pulse Ox 97.7 F 90 20 153/81 H 91 04/22/23 12:44 04/22/23 12:44 04/22/23 12:44 04/22/23 12:44 04/22/23 12:44 General: Alert Neck: Supple Respiratory: Normal air movement Cardiovascular: Regular rate/rhythm, Normal S1 S2 Musculoskeletal: No swelling Neurological: Normal speech Laboratory Data at Discharge: WBC 14.50 thou/uL (4.3-10.9) H 04/21/23 15:45 Hgb 9.5 g/dL (12.0-15.0) L 04/21/23 15:45 Hct 29.6 % (36.0-45.0) L 04/21/23 15:45 Plt Count 642 thou/uL (152-406) H 04/21/23 15:45 PT 14.7 SECONDS (9.5-12.5) H 04/18/23 07:30 INR 1.34 04/18/23 07:30 Sodium 136 mEq/L (136-145) 04/21/23 15:45 Potassium 3.8 mEq/L (3.5-5.1) 04/21/23 15:45 BUN 15 mg/dL (7-18) 04/21/23 15:45 Creatinine 0.63 mg/dL (0.55-1.02) 04/21/23 15:45 Glucose 111 mg/dL (74-106) H 04/21/23 15:45 Phosphorus 2.7 mg/dL (2.5-4.9) 04/18/23 14:21 Magnesium 2.2 mg/dL (1.6-2.4) 04/18/23 14:21 Total Bilirubin 0.5 mg/dL (0.2-1.0) 04/18/23 07:30 AST 47 U/L (15-37) H 04/18/23 07:30 ALT 11 U/L (13-56) L 04/18/23 07:30 Alkaline Phosphatase 107 U/L (45-117) 04/18/23 07:30 Home Medications: Doxycycline Hyclate 100 mg PO BID #21 04/22/23 predniSONE [Deltasone*] 10 mg PO BID #14 tab 04/22/23 New Medications: predniSONE [Deltasone*] 10 mg PO BID #14 tab Doxycycline Hyclate 100 mg PO BID #21 Followup: Elpidio Regalado DO [Primary Care Provider] -
== END 2023-04-22 14:35 | disposition home or self-care (01) | DRG 206 ==
LOC: ER 06:19 → 4TH 11:33
PROVIDERS: ADMIT Internal Medicine Nephrology; ATTEND Internal Medicine Nephrology
PROC: 30233N1 Transfusion of Nonautologous Red Blood Cells into Peripheral Vein, Percutaneous Approach (ICD-10-PCS; principal; 2023-04-18)
DX: J95.02 Infection of tracheostomy stoma (principal); L03.211 Cellulitis of face; L03.221 Cellulitis of neck; J45.41 Moderate persistent asthma with (acute) exacerbation; C15.3 Malignant neoplasm of upper third of esophagus; D63.0 Anemia in neoplastic disease; D63.8 Anemia in other chronic diseases classified elsewhere; D72.829 Elevated white blood cell count, unspecified; R06.03 Acute respiratory distress; Z88.1 Allergy status to other antibiotic agents; Z88.8 Allergy status to other drugs, medicaments and biological substances; Z79.52 Long term (current) use of systemic steroids; Z91.09 Other allergy status, other than to drugs and biological substances; Z11.52 Encounter for screening for COVID-19; Z91.040 Latex allergy status; Z91.048 Other nonmedicinal substance allergy status; Z79.899 Other long term (current) drug therapy; Z90.710 Acquired absence of both cervix and uterus; Z91.013 Allergy to seafood; Y84.8 Other medical procedures as the cause of abnormal reaction of the patient, or of later complication, without mention of misadventure at the time of the procedure
CPT/HCPCS: 36415; 71045; 71250; 80048; 80076; 80202; 81001; 83605; 83735; 83880; 84100; 84484; 85014; 85018; 85025; 85610; 86850; 86900; 86901; 86920; 87040; 87070; 87075; 87081; 87205; 87804; 87811; 93005; 96374; 96375; 99285; J2930; J3475; J7030; J7050; J7512; J7613; J7644; P9016